=== PATIENT | male | born 1950 | race Caucasian/White ===

== ENCOUNTER → 2017-11-05 09:36 | Outpatient (CLI) | payer MEDICARE, SELFPAY ==
[2017-11-05 12:20] LABS: Absolute Lymphocyte Count 1.65 X10^3/ul (0.83-4.51); Absolute Neutrophil Count 3.4 X10^3/uL (2.0-7.7); Basophil# 0.03 X10^3/uL; Basophil% 0.5 % (0-1); Eosinophil# 0.11 X10^3/uL; Eosinophils% 1.9 % (0-5); Hematocrit 45.4 % (40-54); Hemoglobin 15.8 g/dl (13.0-16.5); Lymphocyte # 1.65 X10^3/ul (4.0); Lymphocyte % 28.1 % (19-41); Mean Corp Hgb Conc 34.8 g/gl (32-36); Mean Corpuscular Hgb 31.7 pg (27.0-32.0); Mean Corpuscular Volume 91.2 fL (80-94); Monocyte# 0.66 X10^3/uL; Monocyte% 11.2 % (0-10); Neutrophil # 3.42 X10^3/uL (2.7-7.7); Neutrophil % 58.1 % (47-70); Platelet Count 167 K/mm3 (150-450); RBC Distribution Width CV 12.7 % (11.6-14.6); RBC Distribution Width SD 41.4 fl (35.1-43.9); Red Blood Count 4.98 M/mm3 (4.6-6.2); White Blood Count 5.9 K/mm3 (4.4-11.0)
[2017-11-05 12:21] LABS: POSITIVE COUNT NO; POSITIVE DIFFERENTIAL NO; POSITIVE MORPHOLOGY NO
[2017-11-05 12:36] LABS: Hemoglobin A1c 5.8 % (4.2-6.3)
[2017-11-05 12:38] LABS: Vitamin B12 598 pg/mL (211-911); Vitamin D,25 Hydroxy 60.6 ng/mL (29.95-100.01)
[2017-11-05 12:44] LABS: Microalbumin,Random Urine 9.4 mg/L (NO RANGE EST.); Microalbumin:Creatinine Ratio 5.3 mg/g CRE (<30 mg/g CRE); Protein:Creat Ratio 51 mg/g CRE (0-200)
[2017-11-05 12:48] LABS: ALB/GLOB Ratio 1.1 RATIO (0.9-2.4); AST(SGOT) 21 U/L (15-37); Alanine Aminotransfer ALT/SGPT 32 U/L (16-61); Albumin, Serum 4.1 g/dL (3.2-5.0); Alkaline Phosphatase 68 U/L (45-117); Anion Gap 10 (5-15); BUN 15 mg/dL (7-18); BUN/Creat Ratio 15.7 RATIO (10-20); Chloride 105 mmol/L (98-107); Cholesterol 199 mg/dL (200); Creatinine, Serum 0.96 mg/dL (0.70-1.30); EST Glomerular Filtration Rate 84 mL/min (>60); Est Glom Filt Rate - Afr Amer 101 mL/min (>60); Globulin 3.9 g/dL (2.2-4.2); Glucose 93 mg/dL (74-106); High Density Lipoprotein 48 mg/dL; Potassium 4.2 mmol/L (3.5-5.1); Sodium Level 141 mmol/L (136-145); T4 Free Direct 1.01 ng/dL (0.76-1.46); Thyroid Stim Hormone (TSH) 1.55 uIU/mL (0.358-3.74); Triglycerides 109 mg/dL; Very Low Density Lipoprotein 22 mg/dL (5-40)
[2017-11-06 16:42] LABS: Hep C Antibodies 0.1 s/co ratio (0.0-0.9)
== END ==
PROVIDERS: Family Provider Family Medicine; PCP Family Medicine; Visit Provider Family Medicine
DX: I25.10 Atherosclerotic heart disease of native coronary artery without angina pectoris (principal); E11.9 Type 2 diabetes mellitus without complications; Z11.59 Encounter for screening for other viral diseases; E01.0 Iodine-deficiency related diffuse (endemic) goiter; R53.83 Other fatigue; E55.9 Vitamin D deficiency, unspecified
CPT/HCPCS: 36415; 80053; 80061; 82043; 82306; 82570; 82607; 83036; 84156; 84439; 84443; 85025; 86803

== ENCOUNTER → 2017-11-10 12:30 | Outpatient (CLI) | payer MEDICARE, SELFPAY ==
--- NOTE | 2017-11-08 12:45 | US_ITS ---
STUDY: THYROID ULTRASOUND REASON FOR EXAM: Male, 67 years old. Enlarged thyroid TECHNIQUE: Ultrasound evaluation of the thyroid was performed with real-time and static leslie-scale imaging. COMPARISON: None. FINDINGS: RIGHT LOBE: The right lobe of the thyroid gland measures 5.6 x 1.5 x 1.6 cm. There is a homogeneous echotexture. There are no demonstrated solid, cystic or complex lesions. LEFT LOBE: The left lobe of the thyroid gland measures 4.7 x 2.2 x 2.4 cm. There is a homogeneous echotexture. There are no demonstrated solid, cystic or complex lesions. ISTHMUS: The isthmus measures 2.0 mm . US/Thyroid IMPRESSION: Enlarged thyroid gland. Electronically Signed: Kelsea Hart MD at 14:28 EDT Tel , Service support ,
== END ==
PROVIDERS: Family Provider Family Medicine; PCP Family Medicine; Visit Provider Family Medicine
DX: E01.0 Iodine-deficiency related diffuse (endemic) goiter (principal)
CPT/HCPCS: 76536

== ENCOUNTER → 2017-12-02 15:25 | Outpatient (CLI) | payer MEDICARE, SELFPAY ==
[2017-12-05 11:42] LABS: Anti-Thyroglobulin AB < 1.0 IU/mL (0.0-0.9); Thyroglobulin, Serum Qt. 4.8 ng/mL (1.4-29.2); Thyroid Peroxidase AB 14 IU/mL (0-34)
[2017-12-08 16:06] LABS: Testosterone, Free 13.97 ng/dL (5.00-21.00)
[2017-12-09 12:13] LABS: Testosterone, % Free 2.81 % (1.50-4.20); Testosterone, Total 497 ng/dL (264-916)
== END ==
PROVIDERS: Family Provider Family Medicine; PCP Family Medicine; Visit Provider Family Medicine
DX: E01.0 Iodine-deficiency related diffuse (endemic) goiter (principal); R53.83 Other fatigue
CPT/HCPCS: 36415; 84402; 84403; 84432; 86376; 86800

== ENCOUNTER → 2017-12-15 11:36 | Outpatient (CLI) | payer MEDICARE, SELFPAY ==
[2017-12-15 14:15] LABS: AST(SGOT) 23 U/L (15-37); Alanine Aminotransfer ALT/SGPT 33 U/L (16-61); Albumin, Serum 3.9 g/dL (3.2-5.0); Alkaline Phosphatase 60 U/L (45-117); Bilirubin, Direct 0.13 mg/dL (0.00-0.30); Protein, Total 7.9 g/dL (6.4-8.2)
[2017-12-16 20:07] LABS: Creatine Kinase MB 0 % (0-3); Creatine Kinase MM 100 % (97-100); Creatine Kinase,Total,Serum 109 U/L (24-204); Macro I 0 % (Not Observed); Macro II 0 % (Not Observed)
[2017-12-17 11:33] LABS: Creatine Kinase BB 0 % (0)
== END ==
PROVIDERS: Family Provider Family Medicine; PCP Family Medicine; Visit Provider Family Medicine
DX: E78.5 Hyperlipidemia, unspecified (principal)
CPT/HCPCS: 36415; 80076; 82550; 82552

== ENCOUNTER → 2017-12-16 14:21 | Outpatient (CLI) | payer MEDICARE, SELFPAY ==
[2017-12-16 15:43] LABS: AST(SGOT) 20 U/L (15-37); Alanine Aminotransfer ALT/SGPT 29 U/L (16-61); Albumin, Serum 3.7 g/dL (3.2-5.0); Alkaline Phosphatase 63 U/L (45-117); Bilirubin, Direct 0.08 mg/dL (0.00-0.30); CPK Total, Creatine Kinase 189 U/L (39-308); Globulin 3.8 g/dL (2.2-4.2); Protein, Total 7.5 g/dL (6.4-8.2)
== END ==
PROVIDERS: Family Provider Family Medicine; PCP Family Medicine; Visit Provider Family Medicine
DX: N18.3 Chronic kidney disease, stage 3 (moderate) (principal); R53.83 Other fatigue
CPT/HCPCS: 36415; 80076; 82550

== ENCOUNTER → 2018-01-08 06:29 | Outpatient (CLI) | payer MEDICARE, SELFPAY ==
--- NOTE | 2018-01-08 06:31 | ECHOCS_ITS ---
Reason For Study: CAD/ASHD Procedure This was a 2D Doppler, Color Flow transthoracic echocardiogram. Contrast injection was performed. Exam performed in department. Left Ventricle Moderately dilated left ventricle. Apical false tendon noted. Severe segmental systolic dysfunction (see wall motion). The estimated ejection fraction is 25 %. Diastolic function is indeterminate. Posterior-Basal: Akinetic. Infero-Basal: Akinetic. Basal inferoseptal: Severely Hypokinetic. Mid- Anterior : Severely Hypokinetic. Mid-Lateral : Hypokinetic. Mid-Posterior: Akinetic. Mid-Inferior: Akinetic. Mid-inferoseptal : Severly Hypokinetic. Mid-anteroseptal : Hypokinetic. Anterior [place] : Severely Hypokinetic. Inferior [place] : Akinetic. Lateral [place] : Hypokinetic. Septal [place] : Hypokinetic. Right Ventricle Normal RV size. Normal systolic function. Atria The left atrium is mildly enlarged. Normal right atrium. No doppler evidence for ASD. Bubble contrast study negative for right to left interatrial shunt. Mitral Valve There is no mitral annular calcification. Mild papillary muscle dysfunction of the mitral valve. Mild-Moderate (1-2+) mitral valve insufficiency. Tricuspid Valve Normal tricuspid valve. Mild tricuspid valve insufficiency. Right ventricular systolic pressure estimated to be 31 mmHg. Aortic Valve Trisinus/trileaflet aortic valve. Normal aortic valve. Pulmonic Valve The pulmonic valve is not well visualized. Great Vessels Normal sized aortic root. Pericardium/Pleural No pericardial effusion. Medication Diluted definity 3ml given slow IV push to enhance endocardial definition. Performed a rapid injection of agitated mix of 9 cc saline and 1cc air to assess for atrial septal defect. MMode/2D Measurements & Calculations LVIDd: 6.3 cm IVSd: 1.0 cm Ao root diam: 3.3 cm LVIDs: 5.3 cm LVPWd: 0.83 cm LA dimension: 4.5 cm RVDd: 3.8 cm FS: 16.1 % LAV(MOD-bp): 87.0 ml LVAd ap4: 44.8 cm2 SV(MOD-sp4): 58.3 ml LAV(MOD-bp) Indexed: 39.6 ml/m2 EDV(MOD-sp4): 192.4 ml LAV(MOD-sp2): 93.8 ml EDV(sp4-el): 198.1 ml LAV(MOD-sp4): 67.5 ml LVAs ap4: 35.8 cm2 ESV(MOD-sp4): 134.1 ml ESV(sp4-el): 140.3 ml EF(MOD-sp4): 30.3 % EF(sp4-el): 29.2 % SV(sp4-el): 57.8 ml LA A4 area: 23.4 cm2 RA A4 area: 13.8 cm2 Time Measurements MV dec time: 0.28 sec Doppler Measurements & Calculations MV E max wayne: 61.9 cm/sec Lat Peak E' [place]: 9.5 cm/sec Med Peak E' [place]: 5.9 cm/sec MV A max wayne: 32.5 cm/sec E/E' lat: 6.5 E/E' med: 10.5 MV E/A: 1.9 MV V2 max: 77.6 cm/sec MV P1/2t max wayne: 78.7 cm/sec Ao V2 max: 97.6 cm/sec MV max P.4 mmHg MV P1/2t: 112.1 msec Ao max P.8 mmHg MV V2 mean: 40.8 cm/sec MV dec slope: 205.6 cm/sec2 Ao V2 mean: 60.5 cm/sec MV mean P.82 mmHg MVA(P1/2t): 2.0 cm2 Ao mean P.7 mmHg MV V2 VTI: 22.0 cm Ao V2 VTI: 19.1 cm LV V1 max: 79.2 cm/sec PA V2 max: 112.7 cm/sec TR max wayne: 262.7 cm/sec LV V1 max P.5 mmHg TR max P.6 mmHg LV V1 mean P.1 mmHg LV V1 mean: 47.0 cm/sec LV V1 VTI: 15.5 cm Interpretation Summary Contrast injection was performed. Moderately dilated left ventricle. Severe segmental systolic dysfunction (see wall motion). The estimated ejection fraction is 25 %. Apical false tendon noted. The left atrium is mildly enlarged. Mild papillary muscle dysfunction of the mitral valve. Mild-Moderate (1-2+) mitral valve insufficiency. Mild tricuspid valve insufficiency. Right ventricular systolic pressure estimated to be 31 mmHg. Diastolic function is indeterminate. Ordering Physician: Juaquin Bates Referring Physician: Jerel Caputo Performed By: Damir Umanzor RCS
--- NOTE | 2018-01-08 19:01 | STRESSREP ---
Stress Test Report Date: 01/08/2018 Procedure: Exercise tolerance test/imaging study Indications: Chest pain; angina pectoris; CAD; PCI; CABG; cardiomyopathy Consent: Per the patient Procedure: The patient exercised on a Kraig protocol for 3 minutes completing Stage I achieving a peak heart rate of 139 bpm (89 % predicted maximal heart rate) with a peak blood pressure 162/90 mmHg and a peak MET capacity of 4 METs. The baseline ECG demonstrated sinus rhythm with ST/T wave abnormality. The peak exercise ECG demonstrated continued ST/T wave abnormality without significant change compared to baseline. There was a rare to occasional PVC and a rare ventricular couplet during recovery. The functional capacity was considered decreased. There was chest discomfort/burning and shortness of breath during exercise with spontaneous resolution in recovery. The examination was discontinued secondary to chest discomfort and shortness of breath. Impression: 1. Technically adequate (percent predicted maximal heart rate greater than 85%) exercise tolerance test 2. Peak exercise ECG with continued ST and T wave abnormality without significant change compared to baseline 3. There was a rare to occasional PVC and a rare ventricular couplet during recovery 4. Nuclear images pending Myocardial perfusion imaging study: Technique: The patient was injected with 11.9 mCi of technetium 99m Cardiolite and subsequently rest SPECT Cardiolite nuclear imaging was obtained in the horizontal long, vertical long, and short axis views. The patient exercised on a Kraig protocol for 3 minutes completing Stage I achieving a peak heart rate of 139 bpm (89 % predicted maximal heart rate) with a peak blood pressure 162/90 mmHg and a peak MET capacity of 4 METs. The patient was injected with 33.8 mCi of technetium 99m Cardiolite and subsequently stress SPECT Cardiolite nuclear imaging was obtained in the horizontal long, vertical long, and short axis views. A gated Cardiolite study at peak stress was obtained. Interpretation: Rest and stress SPECT Cardiolite nuclear imaging status post realignment, normalization, and attenuation correction, demonstrates appearance of absence of myocardial perfusion/tracer uptake in portions of the basal to distal inferior septum as well as the basal to distal inferior and inferior apical segments without significant change between rest and stress. There is diminished end systolic thickening and brightening.. The gated Cardiolite study demonstrates managed myocardial thickening and inward wall motion. The reported LVEF is 31 %. Impression: 1. Rest and stress SPECT Cardiolite nuclear imaging demonstrate myocardial perfusion changes appearing compatible with an area of previous myocardial injury/infarction involving portions of the inferior septum and the inferior and inferior apical segments with no myocardial perfusion changes considered diagnostic for associated stress-induced myocardial ischemia. 2. The gated Cardiolite study reports an LVEF of 31 %. This note was generated with ROCKETHOMEation software. It may contain incorrect words, spelling, and punctuation that were not noted in checking the note before signing.
== END ==
PROVIDERS: Family Provider Family Medicine; PCP Family Medicine; Referring Provider Internal Medicine Cardiovascular Disease; Visit Provider Internal Medicine Cardiovascular Disease
DX: I25.10 Atherosclerotic heart disease of native coronary artery without angina pectoris (principal); Z95.5 Presence of coronary angioplasty implant and graft; Z95.1 Presence of aortocoronary bypass graft; I43 Cardiomyopathy in diseases classified elsewhere
CPT/HCPCS: 78452; 93017; 93306; A9500; Q9957; A4216; C8929

== ENCOUNTER 2018-01-27 08:52 | Day surgery (SDC) | payer MEDICARE, SELFPAY ==
--- NOTE | 2018-01-13 10:15 | RAD_ITS ---
STUDY: X-RAY CHEST REASON FOR EXAM: Male, 67 years old. Chest burning. TECHNIQUE: Frontal and lateral views of the chest. COMPARISON: None. FINDINGS: The lungs are hyperexpanded. There is no demonstrated pleural abnormality. There is borderline cardiomegaly with sternotomy wires and changes of coronary artery bypass grafting. Normal mediastinum and kathleen. Normal visualized pulmonary arteries. Normal visualized aortic arch and descending thoracic aorta. Normal visualized thoracic spine. Normal visualized ribs, clavicles, and shoulders. There is no demonstrated abnormality of the visualized soft tissue structures of the upper abdomen. RAD/Chest PA and Lateral IMPRESSION: Borderline cardiomegaly with hyperexpansion. No significant or acute pathology. Electronically Signed: Harrison Brewer MD at 14:09 EDT , Service support ,
[2018-01-13 10:58] LABS: Hematocrit 46.8 % (40-54); Hemoglobin 16.5 g/dl (13.0-16.5); Mean Corp Hgb Conc 35.3 g/gl (32-36); Mean Corpuscular Hgb 31.5 pg (27.0-32.0); Mean Corpuscular Volume 89.3 fL (80-94); Mean Platelet Vol. 10.6 fl (6.2-12.0); Platelet Count 175 K/mm3 (150-450); RBC Distribution Width CV 12.3 % (11.6-14.6); RBC Distribution Width SD 40.2 fl (35.1-43.9); Red Blood Count 5.24 M/mm3 (4.6-6.2); Scan Indicated on CBC? Y/N NO; White Blood Count 6.7 K/mm3 (4.4-11.0)
[2018-01-13 11:16] LABS: International Normalized Ratio 1.1; Prothrombin Time (Protime)PT. 13.9 SECONDS (11.7-14.9)
[2018-01-13 11:17] LABS: Partial Thromboplast Time 28.9 Seconds (24.1-36.2)
[2018-01-13 11:25] LABS: Anion Gap 8 (5-15); BUN 14 mg/dL (7-18); BUN/Creat Ratio 13.1 RATIO (10-20); Calcium,Total 9.2 mg/dL (8.5-10.1); Chloride 104 mmol/L (98-107); Creatinine, Serum 1.07 mg/dL (0.70-1.30); EST Glomerular Filtration Rate 74 mL/min (>60); Est Glom Filt Rate - Afr Amer 89 mL/min (>60); Glucose 99 mg/dL (74-106); Potassium 4.2 mmol/L (3.5-5.1); Sodium Level 138 mmol/L (136-145)
[2018-01-26 10:07] VITALS: BMI 26.0
--- NOTE | 2018-01-27 12:06 | CL.D_ITS ---
Patient Name: THAD NAIDU Study Date: 01/27/2018 Performing: Juaquin Bates MD Ht: 74.01 inches 188 cm : 1950 Wt: 202.83 lbs 92 kg Age: 67 Gender: male BSA: 2.19 PROCEDURE(S) PERFORMED [id number]/COR/LV/CABG CLINICAL PROFILE AND INDICATIONS Indications: Worsening Angina, Suspected CAD, LV Dysfunction, Cardiomyopathy Heart Failure: None Stress/Imaging Stress Test w/SPECT MPI: Yes Result: PositiveStress Test with SPECT MPI: Positive Angina Classification Anginal Classification w/in 2 Weeks: CCS III CAD Presentations: Stable angina. CONCLUSIONS Elevated Left Ventricular End Diastolic Pressure Segmented LV systolic dysfunction- Severe LVEF: by LV gram 25 % [place] Multivessel CAD MASCORRO to DX1: patent with sequential portion to LAD absent Radial artery graft to OM1 sequencing to OM2: patent JENNIFER to RPDA: small, atretic, and nonfunctional Left to right collateral flow RECOMMENDATIONS Medical therapy Consider primary prevention ICD DESCRIPTION OF PROCEDURE The patient arrived to the procedure lab. The risks and benefits of the procedure as well as a full d escription of our services here and current unavailability of surgical backup were fully explained to the patient and/or their significant other prior to the catheterization. The Timeout was completed, verifying the correct patient and procedure. The patient's procedural site was prepped and draped in the usual fashion. Local anesthetic was given subcutaneously to right groin region with Lidocaine 2%. Using a modified Seldinger technique, arterial access was obtained via the right femoral artery, a 4 Fr sheath was inserted Left Coronary Artery selective angiography was performed in multiple views us ing a 4 Fr. JL5 catheter. Right Coronary Artery selective angiography was then performed in multiple views using a 4 Fr. 3DRC catheter. Radial graft to the Circumflex and bridge to the lateral circumfle x selective angiography was performed in multiple views using a 4 Fr. 3DRC catheter. Left internal ma mmary artery graft to the LAD and bridge to the the diagonal selective angiography was performed in m ultiple views using a 4 Fr. 3DRC catheter. Right internal mammary artery graft to the RPDA selective angiography was performed in multiple views using a 4 Fr. JR4 catheter. Left Ventriculography was per formed in SHARIF projection using a 4 Fr. Pigtail catheter. LV to AO pullback pressures were then record ed.The arterial sheath was pulled and manual compression applied until hemostasis is achieved. CORONARY ANGIOGRAPHY DOMINANCE: Right Dominant LEFT HEART ASSESSMENT Left Ventricular Ejection Fraction: by LV Gram 25 % Anterior Hypokinesis. Apical Hypokinesis. Inferior Basal Akinetic. Inferior Mid Akinesis Elevated Left Ventricular End Diastolic Pressure LVEDP: 32 mmHg LEFT MAIN: Angiographically normal LEFT ANTERIOR DECENDING ARTERY: PROX LAD: Previously placed stent is patent with mild luminal irregularities MID LAD: Previously placed stent is patent DISTAL LAD: 10-25 % Stenosis DIAGONAL 1: Proximal - fills from antegrade flow and MASCORRO graft flow with no angiographically signifi cant disease distal to the graft attachment CIRCUMFLEX ARTERY: PROX CIRC: small caliber vessel: long: diffuse: 85 % Stenosis OM 1: Mid - fills from the radial artery sequental graft to OM1 and OM2 with no angiographically sign ificant disease distal to the graft attachment OM 2: Mid - fills from the sequential radial artery graft to OM1 with no angiographically significant appearing disease distal to the graft attachment RIGHT CORONARY ARTERY: PROX RCA: Long: Diffuse: 85 % Stenosis MID RCA: is occluded RT PDA: fills from left to right collateral flow GRAFTS: 1st Obtuse Marginal: Mid - fills from the radial artery sequental graft to OM1 and OM2 with no angiog raphically significant disease distal to the graft attachment 2nd Obtuse Marginal: Mid - fills from the sequential radial artery graft to OM1 with no angiographica lly significant appearing disease distal to the graft attachment MASCORRO graft to the 1st Diagonal is patent sequential portion to the LAD is absent Radial graft to the 1st OM sequencing to OM2 is patent JENNIFER graft to the RPDA is small, atretic, and nonfunctional COLLATERAL FLOW: Collateral flow from Left to Right VALVE FINDINGS: Normal Aortic Valve function Normal Mitral Valve function AORTIC ROOT: Angiographically normal COMPLICATIONS No Complications PROCEDURE MEDICATIONS Versed 1 mg IV Oxygen: 2 L/min via nasal cannula Baby Aspirin (81mg) 1 Tabs PO @ 01/27/2018 09:22:52 SUMMARY OF HEMODYNAMIC DATA Time AIR REST ECG 09:26:31 AO 122/81 (100) SA 11:02:09 LV 157/4, 35 11:19:21 LV 151/4, 32 11:19:27 LV 153/6, 36 11:20:26 LV 154/2, 35 11:20:32 LVp 153/0, 39 11:20:37 AO 153/78 (106) 11:20:42 Signed By Juaquin Bates MD On 01/27/2018 12:06:18 Juaquin Bates MD
== END 2018-01-27 16:00 | disposition home or self-care (01) ==
PROVIDERS: Family Provider Family Medicine; PCP Family Medicine; Referring Provider Internal Medicine Cardiovascular Disease; Visit Provider Internal Medicine Cardiovascular Disease
DX: I25.10 Atherosclerotic heart disease of native coronary artery without angina pectoris (principal); I43 Cardiomyopathy in diseases classified elsewhere; E78.5 Hyperlipidemia, unspecified; Z95.5 Presence of coronary angioplasty implant and graft; Z95.1 Presence of aortocoronary bypass graft; I25.2 Old myocardial infarction; I73.9 Peripheral vascular disease, unspecified; E11.9 Type 2 diabetes mellitus without complications; C83.30 Diffuse large B-cell lymphoma, unspecified site; R07.9 Chest pain, unspecified; R94.39 Abnormal result of other cardiovascular function study; Z79.899 Other long term (current) drug therapy; Z87.891 Personal history of nicotine dependence
CPT/HCPCS: 36415; 71046; 80048; 85027; 85610; 85730; 93459; 99152; 99153; J7040; C1769; C1894; Q9967

== ENCOUNTER → 2018-03-10 11:12 | Outpatient (CLI) | payer MEDICARE, SELFPAY ==
[2018-03-10 12:25] LABS: Absolute Lymphocyte Count 1.74 X10^3/ul (0.83-4.51); Absolute Neutrophil Count 2.5 X10^3/uL (2.0-7.7); Basophil# 0.04 X10^3/uL; Basophil% 0.8 % (0-1); Eosinophil# 0.11 X10^3/uL; Eosinophils% 2.1 % (0-5); Hematocrit 47.9 % (40-54); Hemoglobin 16.6 g/dl (13.0-16.5); Lymphocyte # 1.74 X10^3/ul (4.0); Lymphocyte % 33.9 % (19-41); Mean Corp Hgb Conc 34.7 g/gl (32-36); Mean Corpuscular Volume 89.5 fL (80-94); Mean Platelet Vol. 10.2 fl (6.2-12.0); Monocyte% 13.6 % (0-10); Neutrophil # 2.53 X10^3/uL (2.7-7.7); Neutrophil % 49.4 % (47-70); Platelet Count 165 K/mm3 (150-450); RBC Distribution Width CV 12.5 % (11.6-14.6); RBC Distribution Width SD 40.8 fl (35.1-43.9); Red Blood Count 5.35 M/mm3 (4.6-6.2); White Blood Count 5.1 K/mm3 (4.4-11.0)
[2018-03-10 12:26] LABS: POSITIVE COUNT NO; POSITIVE DIFFERENTIAL NO; POSITIVE MORPHOLOGY NO
[2018-03-10 12:52] LABS: Hemoglobin A1c 5.9 % (4.2-6.3); Vitamin D,25 Hydroxy 63.1 ng/mL (29.95-100.01)
[2018-03-10 13:14] LABS: ALB/GLOB Ratio 0.9 RATIO (0.9-2.4); AST(SGOT) 25 U/L (15-37); Alanine Aminotransfer ALT/SGPT 36 U/L (16-61); Albumin, Serum 4.1 g/dL (3.2-5.0); Alkaline Phosphatase 59 U/L (45-117); Anion Gap 11 (5-15); BUN 18 mg/dL (7-18); BUN/Creat Ratio 16.5 RATIO (10-20); Calcium,Total 9.2 mg/dL (8.5-10.1); Chloride 102 mmol/L (98-107); Cholesterol 292 mg/dL (200); Creatinine, Serum 1.09 mg/dL (0.70-1.30); EST Glomerular Filtration Rate 72 mL/min (>60); Est Glom Filt Rate - Afr Amer 87 mL/min (>60); Globulin 4.4 g/dL (2.2-4.2); Glucose 83 mg/dL (74-106); High Density Lipoprotein 41 mg/dL; Potassium 4.2 mmol/L (3.5-5.1); Protein, Total 8.5 g/dL (6.4-8.2); Sodium Level 137 mmol/L (136-145); Thyroid Stim Hormone (TSH) 1.15 uIU/mL (0.358-3.74); Triglycerides 94 mg/dL; Very Low Density Lipoprotein 19 mg/dL (5-40)
== END ==
PROVIDERS: Family Provider Family Medicine; PCP Family Medicine; Referring Provider Family Medicine; Visit Provider Family Medicine
DX: I50.22 Chronic systolic (congestive) heart failure (principal); R73.02 Impaired glucose tolerance (oral); E55.9 Vitamin D deficiency, unspecified; E78.5 Hyperlipidemia, unspecified
CPT/HCPCS: 36415; 80053; 80061; 82306; 83036; 84443; 85025

== ENCOUNTER → 2018-04-17 13:53 | Outpatient (CLI) | payer MEDICARE, SELFPAY ==
[2018-04-16 15:50] VITALS: BMI 27.2
--- NOTE | 2018-04-17 13:58 | ADUL_ITS ---
Reason For Study: R/O PSEUDO; FEMORAL BRUIT Procedure Rt GLASS INSERTER is .8 x .9 cm with a velocity of 105 cm/s. RT CFV demonstrates normal, phasic blood flow signal. No evidence of pseudoaneurysm or AV Fistula. Exam performed in department. Interpretation Summary Normal right common femoral artery and vein without evidence for pseudoaneurysm or fistula Ordering Physician: Juaquin Bates Referring Physician: PATRICIA BURDEN Performed By: Misty Ding, NERI, RVT
== END ==
PROVIDERS: Family Provider Family Medicine; PCP Family Medicine; Referring Provider Internal Medicine Cardiovascular Disease; Visit Provider Internal Medicine Cardiovascular Disease
DX: R09.89 Other specified symptoms and signs involving the circulatory and respiratory systems (principal)
CPT/HCPCS: 93926

== ENCOUNTER → 2018-07-08 11:05 | Outpatient (CLI) | payer MEDICARE, SELFPAY ==
[2018-04-16 15:50] VITALS: BMI 27.2
[2018-07-08 12:14] LABS: Absolute Lymphocyte Count 1.82 X10^3/ul (0.83-4.51); Absolute Neutrophil Count 2.8 X10^3/uL (2.0-7.7); Basophil# 0.03 X10^3/uL; Basophil% 0.6 % (0-1); Eosinophil# 0.12 X10^3/uL; Eosinophils% 2.3 % (0-5); Hematocrit 44.6 % (40-54); Hemoglobin 15.5 g/dl (13.0-16.5); Lymphocyte # 1.82 X10^3/ul (4.0); Lymphocyte % 34.3 % (19-41); Mean Corp Hgb Conc 34.8 g/gl (32-36); Mean Corpuscular Hgb 30.8 pg (27.0-32.0); Mean Corpuscular Volume 88.5 fL (80-94); Monocyte# 0.51 X10^3/uL; Monocyte% 9.6 % (0-10); Neutrophil # 2.81 X10^3/uL (2.7-7.7); Platelet Count 220 K/mm3 (150-450); RBC Distribution Width CV 12.9 % (11.6-14.6); RBC Distribution Width SD 41.2 fl (35.1-43.9); Red Blood Count 5.04 M/mm3 (4.6-6.2); White Blood Count 5.3 K/mm3 (4.4-11.0)
[2018-07-08 12:18] LABS: POSITIVE COUNT NO; POSITIVE DIFFERENTIAL NO; POSITIVE MORPHOLOGY NO
[2018-07-08 12:56] LABS: Hemoglobin A1c 6.1 % (4.2-6.3)
[2018-07-08 13:19] LABS: ALB/GLOB Ratio 1.3 RATIO (0.9-2.4); AST(SGOT) 25 U/L (15-37); Alanine Aminotransfer ALT/SGPT 35 U/L (16-61); Albumin, Serum 4.4 g/dL (3.2-5.0); Alkaline Phosphatase 60 U/L (45-117); Anion Gap 7 (5-15); BUN 13 mg/dL (7-18); BUN/Creat Ratio 11.9 RATIO (10-20); Calcium,Total 9.2 mg/dL (8.5-10.1); Chloride 108 mmol/L (98-107); Cholesterol 179 mg/dL (200); Creatinine, Serum 1.09 mg/dL (0.70-1.30); EST Glomerular Filtration Rate 72 mL/min (>60); Est Glom Filt Rate - Afr Amer 87 mL/min (>60); Globulin 3.5 g/dL (2.2-4.2); Glucose 91 mg/dL (74-106); High Density Lipoprotein 39 mg/dL; Potassium 4.2 mmol/L (3.5-5.1); Protein, Total 7.9 g/dL (6.4-8.2); Sodium Level 138 mmol/L (136-145); Triglycerides 81 mg/dL; Very Low Density Lipoprotein 16 mg/dL (5-40)
== END ==
PROVIDERS: Family Provider Family Medicine; PCP Family Medicine; Referring Provider Family Medicine; Visit Provider Family Medicine
DX: I25.10 Atherosclerotic heart disease of native coronary artery without angina pectoris (principal); E78.5 Hyperlipidemia, unspecified; E55.9 Vitamin D deficiency, unspecified; R73.02 Impaired glucose tolerance (oral)
CPT/HCPCS: 80053; 80061; 82306; 83036; 85025

== ENCOUNTER → 2018-08-06 08:40 | Outpatient (CLI) | payer MEDICARE, SELFPAY ==
[2018-07-23 15:29] VITALS: BMI 27.4
--- NOTE | 2018-08-06 08:42 | AAVD_ITS ---
Reason For Study: PAD Aorta Measurements Aorta Doppler Measurements Proximal aorta measures1.68 x 1.79cm. in cross- Peak systolic flow velocities within the proximal sectional axis. aorta measure 64.4 cm/sec. Proximal aorta measures1.70cm. in longitudinal Peak systolic flow velocities within the mid aorta axis. measure 57.8 cm/sec. Mid aorta measures1.53 x 1.51cm. in cross- Peak systolic flow velocities within the distal sectional axis. aorta measure 62.2 cm/sec. Mid aorta measures1.54cm. in longitudinal axis. Distal aorta measures1.14 x 1.12cm. in cross- sectional axis. Distal aorta measures1.12cm. in longitudinal axis. Left Iliac Artery Left iliac artery measures 0.53 x 0.51 cm. in the cross-sectional axis. Left iliac artery measures 0.55 cm. in the longitudinal axis. Peak systolic velocity in the left iliac artery measures 106.6 cm/sec. Right Iliac Artery Right iliac artery measures 0.57 x 0.57 cm. in the cross-sectional axis. Right iliac artery measures 0.49 cm. in the longitudinal axis. Peak systolic velocity in the right iliac artery measures 126.4 cm/sec. Procedure Aorta IVC Iliac vasculature or bypass grafts [id number]. Exam performed in department. Interpretation Summary Maximal aortic diameter 1.53 x 1.51cm. No evidence for aortic aneursym Normal flow abdominal aorta Left common iliac small at 0.53 x 0.51cm Right common iliac small at 0.57 x 0.57cm Ordering Physician: Juaquin Bates Referring Physician: Jerel Caputo Performed By: Cally Daigle RVT
== END ==
PROVIDERS: Family Provider Family Medicine; Referring Provider Internal Medicine Cardiovascular Disease; Visit Provider Internal Medicine Cardiovascular Disease
DX: R09.89 Other specified symptoms and signs involving the circulatory and respiratory systems (principal)
CPT/HCPCS: 93978

== ENCOUNTER 2018-09-25 09:39 | Emergency (ER) | payer MEDICARE, SELFPAY ==
[2018-07-23 15:29] VITALS: BMI 27.4
[2018-09-25] VITALS (9 sets, daily range): BP systolic 108–122; BP diastolic 76–100; PULSE 119–133; RESP 18–40; TEMP 36.4–36.5; O2SAT 97–100; BMI 25.3
--- NOTE | 2018-09-25 10:04 | EKG12_ITS ---
Test Reason : SOB Blood Pressure : / mmHG Vent. Rate : 120 BPM Atrial Rate : 120 BPM P-R Int : 112 ms QRS Dur : 096 ms QT Int : 326 ms P-R-T Axes : 000 101 262 degrees QTc Int : 460 ms Sinus tachycardia Rightward axis ST & T wave abnormality, consider inferolateral ischemia Abnormal ECG Confirmed by TAMANNA BOOTH ([id number]), medical editor JOSE HUANG ([id number]) on 09/30/2018 2:10:11 PM Referred By: DC Confirmed By:TAMANNA BOOTH
--- NOTE | 2018-09-25 10:04 | RAD_ITS ---
STUDY: X-RAY CHEST REASON FOR EXAM: Male, 68 years old. TECHNIQUE: 1 view COMPARISON: January 13, 2018. FINDINGS: The lungs are clear and expanded. There is no demonstrated pleural abnormality. Normal size heart. Normal mediastinum and kathleen. Normal visualized pulmonary arteries. Normal visualized aortic arch and descending thoracic aorta. There are multiple metallic stitches along the sternum from previous surgery. Normal visualized thoracic spine. There is old healed rib fracture involving the fifth rib in the posterior axillary line in the right, otherwise the clavicles, and shoulders are unremarkable. The trachea is in the midline. There is no demonstrated abnormality of the visualized soft tissue structures of the upper abdomen. RAD/Chest 1 View (Portable) IMPRESSION: Normal x-ray examination of the chest unchanged since January 13, 2018.. Electronically Signed: Henrietta Ruiz, at 11:56 EDT Tel , Service support ,
--- NOTE | 2018-09-25 10:07 | ED.DCSUM_ITS ---
- ER Visit Summary Date of Service: 09/25/18 Chief Complaint: Shortness of breath History of Present Illness: The patient is a 68 M with shortness of breath for months. This has been getting worse. He had a cardiac cath in January and he said he did not require stents. He does have a history of CHF, cardiomyopathy. He was recently diagnosed with COPD. He quit smoking about 5 years ago. He is not on oxygen. He saw his PCP today and his heart rate and respiratory rate were up, so he was referred to the ED for further evaluation. He has shortness of breath, cough, nausea, vomiting. Denies chest pain. Denies fevers or sputum. Denies any calf pain or history of blood clots. Physical Examination: Afebrile. Heart rate 119 and respiratory rate 40. Patient 100% on room air. He appears pale but not in distress. Heart is tachycardic but regular. Lungs are clear. Abdomen soft. Extremities nontender. Test Results: EKG, chest x-ray pending. Laboratory evaluation pending. Emergency Department Course and Treatment: Patient presents with shortness of breath, cough, nausea. History of CHF, COPD, cardiomyopathy. Work-up for cardiac, respiratory, vascular causes underway. He is low risk for PE. We will start with a d-dimer. Will hold fluids for now. Labs started coming back abnormal. His platelets were low. DIC testing was ordered. His fibrinogen was 52, d-dimer greater than 20. INR 3.1 and PTT 47.2. White count 11.4 and lactate 6.0. Urinalysis and chest x-ray unremarkable. Blood cultures pending. Patient was covered with a fluid bolus and Levaquin for possible underlying sepsis. Blood work showed liver failure. Liver enzymes are elevated. Total bilirubin 3.8. Lipase was normal. INR 3.1 and PTT 47.2. Tylenol level was negative. CT of his abdomen was unremarkable except for a right kidney stone measuring 1.2 cm. BUN was 20 and creatinine 2.53. Potassium 5.8. He was treated with albuterol, insulin, dextrose, calcium. Patient was discussed with our surgical endoscopist and hospitalist here. They felt that he needed to go somewhere with a developer relations manager on staff. Patient initially requested [facility]. [facility] felt that the patient would need a transplant possibly and recommended [facility]. Patient was agreeable to [facility]. I spoke with the surgical endoscopist there. He thought based on the patient's comorbidities, the patient would not be a candidate for transplant. He suggested [facility]. We are waiting to hear back from [facility]. Treatment Plan: As above Disposition: Transfer Impression: 1. DIC 2. Hepatic failure 3. CHF/cardiomyopathy 4. Acute kidney injury 5. Hyperkalemia 6. Lactic acidosis This note was generated with Pad[employer] dictation software. It may contain incorrect words, spelling, and punctuation that were not noted in review of the chart prior to signing ED Disposition - Plan for ED Patient: Referrals: Jerel Caputo MD [Primary Care Provider] -
[2018-09-25 11:06] LABS: International Normalized Ratio 3.1; Prothrombin Time (Protime)PT. 32.4 SECONDS (11.7-14.9)
[2018-09-25 11:07] LABS: Partial Thromboplast Time 47.2 Seconds (24.1-36.2)
[2018-09-25 11:13] LABS: Absolute Lymphocyte Count 1.48 X10^3/ul (0.83-4.51); Basophil# 0.01 X10^3/uL; Basophil% 0.1 % (0-1); Hematocrit 43.7 % (40-54); Hemoglobin 14.6 g/dl (13.0-16.5); Lymphocyte # 1.48 X10^3/ul (4.0); Lymphocyte % 12.9 % (19-41); Mean Corp Hgb Conc 33.4 g/gl (32-36); Mean Corpuscular Hgb 30.4 pg (27.0-32.0); Mean Platelet Vol. 11.1 fl (6.2-12.0); Monocyte# 0.93 X10^3/uL; Monocyte% 8.1 % (0-10); Neutrophil # 8.99 X10^3/uL (2.7-7.7); Neutrophil % 78.7 % (47-70); Platelet Count 61 K/mm3 (150-450); RBC Distribution Width CV 14.3 % (11.6-14.6); RBC Distribution Width SD 46.5 fl (35.1-43.9); White Blood Count 11.4 K/mm3 (4.4-11.0)
[2018-09-25 11:15] LABS: POSITIVE COUNT NO; POSITIVE DIFFERENTIAL NO; POSITIVE MORPHOLOGY NO
--- NOTE | 2018-09-25 11:23 | ED.RN ---
DR SALCIDO INFORMED LACTIC=6.0. STATES WILL ENTER NEW ORDERS
[2018-09-25 11:26] LABS: ALB/GLOB Ratio 1.2 RATIO (0.9-2.4); AST(SGOT) 2011 U/L (15-37); Alanine Aminotransfer ALT/SGPT 1539 U/L (16-61); Albumin, Serum 3.9 g/dL (3.2-5.0); Alkaline Phosphatase 96 U/L (45-117); Anion Gap 12 (5-15); BUN 50 mg/dL (7-18); BUN/Creat Ratio 19.8 RATIO (10-20); Calcium,Total 9.2 mg/dL (8.5-10.1); Chloride 103 mmol/L (98-107); Creatinine, Serum 2.53 mg/dL (0.70-1.30); EST Glomerular Filtration Rate 27 mL/min (>60); Est Glom Filt Rate - Afr Amer 33 mL/min (>60); Estimated Creatinine Clearance 33.39 ml/min; Globulin 3.3 g/dL (2.2-4.2); Glucose 110 mg/dL (74-106); Potassium 5.8 mmol/L (3.5-5.1); Protein, Total 7.2 g/dL (6.4-8.2); Sodium Level 134 mmol/L (136-145)
--- NOTE | 2018-09-25 11:33 | CT_ITS ---
STUDY: CT ABDOMEN AND PELVIS WITHOUT CONTRAST REASON FOR EXAM: Male, 68 years old. RADIATION DOSAGE (If Supplied By Facility): CTDIvol = ( 9.13 ) mGy, DLP = ( 540.47 ) mGycm TECHNIQUE: Transaxial images were obtained from the dome of the diaphragm to the symphysis pubis without oral contrast, and without intravenous contrast. Sagittal and coronal images were reconstructed. Individualized dose optimization techniques were used for this CT. COMPARISON: None. FINDINGS: There is minimal right-sided pleural effusion with some patchy changes in the right base. The liver is not enlarged no focal lesion noted. The spleen is unremarkable. The pancreas is unremarkable. Both the suprarenal glands are within normal limits. There is 1.2 cm stone in the inferior aspect of the right kidney no obstructive uropathy seen on either side. The small and large bowel are unremarkable. No ascites noted. No free fluid surrounding no free air within the peritoneal cavity. Atherosclerotic changes noted in the abdominal aorta without aneurysmal dilatation. There is evidence of narrowing of the L4-L5 disc space with hypertrophic osteophyte formation seen in the lower dorsal and upper lumbar spine. CT/Abdomen/Pelvis without Cont IMPRESSION: 1.2 cm stone lower aspect of the right kidney. The study is otherwise negative Electronically Signed: Henrietta Ruiz, at 14:05 EDT Tel , Service support ,
[2018-09-25 11:42] LABS: D-Dimer Quantitative (DVT/PE) > 20.00 FEU/ug/m (0.27-0.49)
--- NOTE | 2018-09-25 11:42 | ED.RN ---
DR SALCIDO NOTIFIED D-DIMER >20. NNO VERBALIZED
[2018-09-25] MEDS: Albuterol 2.5 MG/3 ML VIAL.NEB. INHALATION (11:46)
[2018-09-25 11:52] LABS: BNP,B-Type NATRIURETIC PEPTIDE 1491.6 pg/mL (0-100)
[2018-09-25] MEDS: Dextrose 50%-Water 25 GM/50 ML DISP.SYRIN IV (12:07)
[2018-09-25] MEDS: 0.9% Normal Saline 1,000 ML 999 ML IV ×3 (12:07→13:58)
[2018-09-25] MEDS: Calcium Gluconate 1 GM/10 ML Vial IV (12:07)
[2018-09-25] MEDS: levoFLOXacin IV 750 MG/150 ML BAG 100 MG IV (12:24)
[2018-09-25 12:30] LABS: LDH 1752 U/L (87-241); Lipase 110 U/L (73-393)
[2018-09-25 12:33] LABS: Red Blood Cells-Urine 0 SEEN /hpf (0-5)
[2018-09-25 12:35] LABS: Fibrinogen 52 mg/dl (203-444)
--- NOTE | 2018-09-25 12:37 | ED.RN ---
FIBRINOGEN 52, DR. SALCIDO AWARE.
[2018-09-25 12:50] LABS: Color, Urine Yellow (Yellow); Glucose, Dipstick Normal (Normal); Ketone-Dipstick 5 mg/dl (Negative); Leukocyte Esterase-Dipstick Negative /ul (Negative); Nitrite-Dipstick Negative (Negative); Occult Blood-Urine 25 /ul (Negative); Protein-Dipstick 100 mg/dl (Negative); Specific Gravity, Urine 1.025 (1.002-1.030); Urine Clarity Clear (Clear); Urine Urobilinogen 4 mg/dl (Normal)
[2018-09-25 12:51] LABS: Urine Bilirubin Dipstick 1 mg/dL (Negative)
[2018-09-25 12:52] LABS: Bacteria 1+ /hpf (None Seen); Mucous, Urine 1+ /hpf (<or=2+); Squamous Epithelial Cells - UA 0-5 SEEN /hpf (0-5)
[2018-09-25 12:53] LABS: Fine Granular Cast- Urine 0-5 SEEN /lpf (0-5); Hyaline Cast 5-10 SEEN /lpf (0-5); White Blood Cells 0-5 SEEN /hpf (0-5)
[2018-09-25 13:06] LABS: Acetaminophen (Tylenol) Level < 2.0 ug/mL (10.0-30.0)
[2018-09-25 14:53] LABS: Reflex Lactate? Y
[2018-09-25 15:46] LABS: Lactic Acid 4.2 mmol/L (0.4-2.0)
--- NOTE | 2018-09-25 15:47 | ED.RN ---
LACTIC 4.2 MD AWARE.
[2018-09-25] MEDS: Ondansetron 4 MG/2 ML Vial IV (16:19)
== END 2018-09-25 18:13 | disposition short-term general hospital (02) ==
PROVIDERS: Emergency Provider Emergency Medicine; Family Provider Family Medicine; PCP Family Medicine
DX: D65 Disseminated intravascular coagulation [defibrination syndrome] (principal); K72.90 Hepatic failure, unspecified without coma; I50.9 Heart failure, unspecified; I42.9 Cardiomyopathy, unspecified; N17.9 Acute kidney failure, unspecified; E87.5 Hyperkalemia; E87.2 Acidosis; I25.10 Atherosclerotic heart disease of native coronary artery without angina pectoris; I25.2 Old myocardial infarction; J44.9 Chronic obstructive pulmonary disease, unspecified; Z95.1 Presence of aortocoronary bypass graft; Z79.82 Long term (current) use of aspirin; Z87.891 Personal history of nicotine dependence
CPT/HCPCS: 71045; 74176; 80053; 80329; 81001; 83605; 83615; 83690; 83880; 84484; 85025; 85379; 85384; 85610; 85730; 86850; 86900; 87040; 87086; 87088; 93005; 94640; 96365; 96366; 96375; 99285; J7030; J7050; A4216; G0480; J0610; J2405

== ENCOUNTER 2018-10-09 19:00 | Inpatient (IN) | payer SELFPAY ==
[2018-09-25 09:43] VITALS: BMI 25.3
[2018-10-09 19:44] VITALS: BP 102/65; PULSE 81; RESP 20; TEMP 36.9; O2SAT 100; BMI 23.3; BMI 23.4
--- NOTE | 2018-10-09 19:45 | NURSING ---
Pt arrived to floor at 1840.
--- NOTE | 2018-10-09 21:06 | HP.PCM_ITS ---
Problem List (1) Shortness of breath Status: Acute (2) COPD (chronic obstructive pulmonary disease) Status: Chronic (3) Liver failure Status: Acute (4) Bipolar disorder Status: Chronic (5) Coronary artery disease Status: Chronic (6) Acute on chronic systolic (congestive) heart failure Status: Chronic (7) GERD (gastroesophageal reflux disease) Status: Chronic (8) Large cell lymphoma Status: Chronic (9) OCD (obsessive compulsive disorder) Status: Chronic (10) PAOD (peripheral arterial occlusive disease) Status: Chronic (11) Panic disorder Status: Chronic (12) Tobacco abuse Status: Chronic (13) Atrial flutter Status: Chronic (14) Elevated liver enzymes Status: Acute (15) Acute kidney injury Status: Acute (16) Elevated lactic acid level Status: Acute (17) Hyperlipemia Status: Chronic Qualifiers: History of Present Illness Date of Admission: 10/09/18 Chief Complaint: Here for rehabilitation, strengthening, prior to discharge home with family. The patient is a 68 year old Male with below past medical history presented to [facility] Emergency Department 09/25/2018 with shortness of breath. 09/25/2018 EKG showed sinus tachycardia, rightward axis, ST&T wave abnormality, consider inferolateral ischemia. 09/25/2018 Chest X-ray negative. Shortness of breath worsening, heart cath January 2018, no stents. Saw PCP, heart rate elevated, respiratory rate elevated, referred to ED. Platelet low, D-dimer > 20, INR 3.1, PTT 47.2. WBC 11.4, Lactate 6.0, UA, CXR okay, Blood cultures sent. Levaquin, IV fluids given. Liver enzymes elevated, T. Bili 3.8. CT A/P right kidney stone. BUN 20, CR 2.53, K 5.8 treated with albuterol, insulin, dextrose, calcium. Transferred to [facility]. At [facility], atrial flutter noted along with elevated liver enzymes, new onset thrombocytopenia. Digoxin load for atrial flutter, Right upper quadrant ultrasound negative. Metoprolol 2.5MG IV for atrial flutter without improvement. 09/25/2018 Echo Normal LV size, impaired LV systolic function. EF 20%. LVH. No pericardial effusion. 09/26/2018 Patient then transferred to [facility]. Admit to [facility]. Consider hepatology consult for liver failure. [place] guided therapy for acute systolic heart failure, patient declined ICD in past. Trend creatinine for acute kidney injury. 09/27/2018 DC cardioversion atrial flutter. 10/06/2018 Acute right IJ DVT, acute right popliteal, PT, peroneal, gastroc DVT, left PT, LV, RV thrombus. Developed cardiogenic shock. Metoprolol, valsartan, digoxin, lasix for systolic heart failure, patient declined LifeVest. Aspirin only, history of bleeding on Plavix. Warfarin, heparin bridge for acute DVT. No concern for recurrence of Large cell lymphoma. Patient's condition improved. 10/09/2018 Admit to TCU with debility, here for rehabilitation, strengthening, prior to discharge home with family. Past Medical History Past Medical History (Chronic Problems): Chronic Problems (Last Updated 07/23/18 @ 15:37 by Aydee Evans) COPD (chronic obstructive pulmonary disease) (Chronic) Bipolar disorder (Chronic) Coronary artery disease (Chronic) Acute on chronic systolic (congestive) heart failure (Chronic) GERD (gastroesophageal reflux disease) (Chronic) 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Chronic) OCD (obsessive compulsive disorder) (Chronic) PAOD (peripheral arterial occlusive disease) (Chronic) Panic disorder (Chronic) Tobacco abuse (Chronic) Atrial flutter (Chronic) Non-STEMI (non-ST elevated myocardial infarction) (Chronic) History of coronary artery bypass surgery (Chronic ~01/06/07) CABG x5- MASCORRO to LAD, bridge diagonal, JENNIFER to PDA, Right Radial artery to posterolateral CFX, bridge to lateral CFX 01/06/07 Presence of stent in coronary artery (Chronic ~12/07/13) PTCA/stent to the mid LAD, PTCA/stent prox LAD, and PTCA/stent to the distal LAD 12/07/13 Peripheral vascular disease (Chronic) Hyperlipemia (Chronic) Cardiomyopathy in disease classified elsewhere (Chronic) Atherosclerotic heart disease of [place] coronary artery without angina pectoris (Chronic) Type 2 diabetes mellitus (Chronic) Pre diabetic Medical History: Medical History (Last Updated 07/23/18 @ 15:37 by Aydee Evans) Non-STEMI (non-ST elevated myocardial infarction) (Chronic) I21.4 Peripheral vascular disease (Chronic) I73.9 Hyperlipemia (Chronic) E78.5 Cardiomyopathy in disease classified elsewhere (Chronic) I43 Atherosclerotic heart disease of [place] coronary artery without angina pectoris (Chronic) I25.10 Type 2 diabetes mellitus (Chronic) E11.9 Pre diabetic GERD (gastroesophageal reflux disease) K21.9 Ischemic cardiomyopathy I25.5 Large cell lymphoma C85.80 Panic disorder F41.0 Allergies bee venom protein (honey bee) Allergy (Verified 10/09/18 20:28) Anaphylaxis captopril Adverse Reaction (Verified 10/09/18 20:29) Other Home Medications: Ambulatory Orders Medication Instructions Recorded Cholecalciferol (Vitamin D3) 5,000 unit PO DAILY 09/25/18 [Vitamin D3] Rosuvastatin Calcium 5 mg PO AYALA 09/25/18 Albuterol IH (ProAir) [Proair Hfa] 2 puff INHALATION Q6H PRN PRN 10/09/18 Aspirin 81 mg PO DAILY 10/09/18 Digoxin [Lanoxin] 125 mcg PO DAILY 10/09/18 Furosemide 40 mg PO DAILY 10/09/18 Metoprolol Succinate 12.5 mg PO DAILY 10/09/18 Spironolactone 25 mg PO DAILY 10/09/18 Valsartan 20 mg PO BID 10/09/18 Warfarin [Coumadin (PBKC)] 7.5 mg PO DAILY 10/09/18 Surgical History: Surgical History (Last Reviewed 07/23/18 @ 15:39 by Aydee Evans) History of coronary artery bypass surgery (Chronic) Onset Date: ~01/06/07 Z95.1 CABG x5- MASCORRO to LAD, bridge diagonal, JENNIFER to PDA, Right Radial artery to posterolateral CFX, bridge to lateral CFX 01/06/07 Presence of stent in coronary artery (Chronic) Onset Date: ~12/07/13 Z95.5 PTCA/stent to the mid LAD, PTCA/stent prox LAD, and PTCA/stent to the distal LAD 12/07/13 S/P insertion of iliac artery stent Z95.828 History of nasal septoplasty Z98.890 Surgical History: angioplasty - Stent right iliac artery., coronary bypass surgery, - - Nasal septum, biopsy neck mass lymphoma. Lives: With Family Smoking Status: Former smoker Tobacco Use: Non-smoker Alcohol: Occasional Drugs: Marijuana - *Family History Maternal Family History: Family History (Last Reviewed 07/23/18 @ 15:39 by Aydee Evans) Father Diabetes History Items: Hypertension Paternal Family History: Family History (Last Reviewed 07/23/18 @ 15:39 by Aydee Evans) Father Diabetes History Items: Diabetes, Dementia, Hypertension, Stroke Review of Systems Constitutional: Denies: Chills, Fever, Weight Change HEENT: Denies: Head Aches, Sinus Congestion, Sinus Drainage Cardiovascular: Denies: Chest Pain, Palpitations Respiratory: Reports: Shortness of Breath. Denies: Cough, Shortness of breath at rest, Sputum production Gastrointestinal: Denies: Abdominal Pain, Nausea, Vomiting Genitourinary: Denies: Dysuria Musculoskeletal: Denies: Joint Pain, Joint Tenderness Skin: Denies: Rash, Wounds Neurological: Denies: Numbness, Tingling, Focal weakness Psychiatric: Denies: Anxiety, Depression, Homicidal Ideations, Suicidal Ideations Hematologic/ Lymphatic: Denies: Easy Bruising, Easy Bleeding VTE Information - Inpt Only VTE Present on Admission: Yes VTE Mechan Device Prophylaxis: Knee High JEMAL Hose VTE Pharm Prophylaxis ordered?: No Reason prophylaxis not ordered:: Treatment Not Indicated Patient Problems: Active and Suspected Problems (Last Updated 07/23/18 @ 15:37 by Aydee Evans) Shortness of breath (Acute) Liver failure (Acute) Elevated liver enzymes (Acute) Acute kidney injury (Acute) Elevated lactic acid level (Acute) - Physical Exam General: Alert, Oriented x3, Cooperative HEENT: Atraumatic, PERRLA, EOMI, Normocephalic Neck: Supple, No JVD, Negative Carotid Bruits Lungs: Clear to auscultation, Normal air movement Cardiovascular: Regular rate, Murmur - 2/6 systolic murmur upper left sternal border. Abdomen: Bowel Sounds Present, Soft, Non Tender Extremities: No edema, Capillary Refill Less than 3 Seconds Skin: No rashes, No breakdown Musculoskeletal: No Tenderness to Palpation of Joints or Extremities Neurological: Cranial nerves II-XII grossly intact Psych/Mental Status: Normal Affect, Appropriate Body Mass Index (BMI) 25.3 Assessment/Plan All Active Problems (Last Updated 07/23/18 @ 15:37 by Aydee Evans) Shortness of breath (Acute) Liver failure (Acute) Elevated liver enzymes (Acute) Acute kidney injury (Acute) Elevated lactic acid level (Acute) Femoral bruit (Acute) Chest pain (Acute) Abnormal stress test (Acute) 68 year old male with below past medical history hospitalized for cardiogenic shock, liver failure, acute kidney injury, complicated by acute on chronic systolic congestive heart failure, extensive DVT, admitted to TCU with debility, here for rehabilitation, strengthening, prior to discharge home with family. * Debility - PT/OT. * Pain - Tylenol 1000MG Q8H PRN mild pain. * Bowel - Miralax 17GM daily, Senokot 1 tablet BID, Dulcolax 10MG daily PRN. * Pneumonia vaccination - Administer Prevnar 13 and/or Pneumovax 23 as necessary. * DVT prophylaxis - not necessary, already on warfarin. * COPD - Albuterol 2 puff Q6H PRN. * Coronary Artery disease - Metoprolol succinate 12.5MG daily, Losartan 25MG daily, Aspirin 81MG daily. * Hyperlipidemia - Atorvastatin 10MG once per week. * Vitamin D deficiency - D3 5000IU daily. * Acute on chronic systolic heart failure - EF 20%, Metoprolol succinate 12.5MG daily, Digoxin 125MCG daily, Losartan 25MG daily, Aldactone 25MG daily, Lasix 40MG daily, unable ICD secondary to cardiac thrombus, declined LifeVest. He maybe candidate for Entresto, will discuss with resident. Resident open to trying Entresto, stop Losartan, start Entresto 24/26MG twice daily tomorrow. * Acute DVT - Warfarin 7.5MG daily, follow INR.
[2018-10-10] VITALS (7 sets, daily range): BP systolic 76–107; BP diastolic 44–63; PULSE 66–84; TEMP 36.4; O2SAT 98–99
[2018-10-10] MEDS: Metoprolol(XL)Succ 25 MG Tablet 12.5 MG PO (06:38)
[2018-10-10] MEDS: Furosemide 40 MG Tablet PO (06:40)
[2018-10-10] MEDS: Spironolactone 25 MG Tablet PO (06:40)
[2018-10-10] MEDS: Digoxin 125 MCG Tablet PO (06:40)
[2018-10-10] MEDS: Losartan Potassium 25 MG Tablet PO (06:41)
[2018-10-10 07:44] LABS: International Normalized Ratio 1.9; Prothrombin Time (Protime)PT. 21.8 SECONDS (11.7-14.9)
[2018-10-10 07:49] LABS: Absolute Lymphocyte Count 1.56 X10^3/ul (0.83-4.51); Absolute Neutrophil Count 3.7 X10^3/uL (2.0-7.7); Basophil# 0.03 X10^3/uL; Basophil% 0.5 % (0-1); Eosinophil# 0.36 X10^3/uL; Eosinophils% 5.6 % (0-5); Hemoglobin 9.4 g/dl (13.0-16.5); Lymphocyte # 1.56 X10^3/ul (4.0); Lymphocyte % 24.1 % (19-41); Mean Corp Hgb Conc 32.4 g/gl (32-36); Mean Corpuscular Hgb 31.1 pg (27.0-32.0); Mean Platelet Vol. 9.3 fl (6.2-12.0); Monocyte% 12.4 % (0-10); Neutrophil # 3.68 X10^3/uL (2.7-7.7); Neutrophil % 56.9 % (47-70); Platelet Count 364 K/mm3 (150-450); RBC Distribution Width CV 15.8 % (11.6-14.6); Red Blood Count 3.02 M/mm3 (4.6-6.2); White Blood Count 6.5 K/mm3 (4.4-11.0)
[2018-10-10 07:52] LABS: POSITIVE COUNT NO; POSITIVE DIFFERENTIAL NO; POSITIVE MORPHOLOGY NO
[2018-10-10 07:58] LABS: Anion Gap 7 (5-15); BUN 14 mg/dL (7-18); Calcium,Total 8.6 mg/dL (8.5-10.1); Chloride 105 mmol/L (98-107); Creatinine, Serum 0.82 mg/dL (0.70-1.30); EST Glomerular Filtration Rate 99 mL/min (>60); Est Glom Filt Rate - Afr Amer 120 mL/min (>60); Estimated Creatinine Clearance 103.03 ml/min; Glucose 102 mg/dL (74-106); Potassium 4.1 mmol/L (3.5-5.1); Sodium Level 137 mmol/L (136-145)
[2018-10-10] MEDS: Aspirin 81 MG TAB.CHEW PO (08:42)
[2018-10-10] MEDS: Tuberculin,Purif.prot.deriv. 50 TU/ML Vial 5 ML ID (11:58)
--- NOTE | 2018-10-10 13:00 | NURSING ---
Therapy asked this nurse to come to pt's room, states Pt's color pale and checked BP and it was low. Pt laying in bed. BP 76/50, HR 66, regular. Pt denies feeling dizzy at this time. Manual BP 80/44 left arm. Pt's RN, Gavi, into room.
--- NOTE | 2018-10-10 13:45 | NURSING ---
Dr. Navarro notified of low bp, pt condition, monitor, no new orders.
[2018-10-11 06:11] VITALS: BP 102/67; PULSE 85
[2018-10-11] MEDS: Spironolactone 25 MG Tablet PO (06:11)
[2018-10-11] MEDS: Digoxin 125 MCG Tablet PO (06:11)
[2018-10-11] MEDS: Furosemide 40 MG Tablet PO (06:11)
[2018-10-11] MEDS: Metoprolol(XL)Succ 25 MG Tablet 12.5 MG PO (06:11)
[2018-10-11] MEDS: Losartan Potassium 25 MG Tablet PO (06:11)
[2018-10-11] MEDS: Senna Tablet 1 TABLET PO ×2 (06:12→16:46)
--- NOTE | 2018-10-11 06:21 | NURSING ---
Per pt, he is only to take 2,000 units of vitamin D. Will update Dr Navarro.
[2018-10-11] MEDS: Aspirin 81 MG TAB.CHEW PO (08:02)
[2018-10-11 15:48] VITALS: BP 100/60; PULSE 83; RESP 16; TEMP 36.7; O2SAT 97
[2018-10-11] MEDS: Atorvastatin Calcium 10 MG Tablet PO (20:06)
[2018-10-12 05:18] VITALS: BP 100/58; PULSE 85
[2018-10-12] MEDS: Losartan Potassium 25 MG Tablet PO (05:18)
[2018-10-12] MEDS: Furosemide 40 MG Tablet PO (05:18)
[2018-10-12] MEDS: Spironolactone 25 MG Tablet PO (05:18)
[2018-10-12] MEDS: Senna Tablet 1 TABLET PO ×2 (05:18→16:45)
[2018-10-12] MEDS: Polyethylene Glycol 3350 17 GM PACKET PO (05:18)
[2018-10-12] MEDS: Metoprolol(XL)Succ 25 MG Tablet 12.5 MG PO (05:18)
[2018-10-12] MEDS: Digoxin 125 MCG Tablet PO (05:18)
[2018-10-12 06:01] LABS: International Normalized Ratio 2.2; Prothrombin Time (Protime)PT. 24.6 SECONDS (11.7-14.9)
[2018-10-12] MEDS: Aspirin 81 MG TAB.CHEW PO (07:26)
[2018-10-12 16:00] VITALS: BP 95/66; PULSE 82; RESP 16; TEMP 36.9; O2SAT 97
[2018-10-12] MEDS: SACUBITRIL/VALSARTAN 24/26 MG TABLET 1 EACH PO (16:45)
[2018-10-13 05:48] VITALS: BP 101/69; PULSE 93
[2018-10-13] MEDS: Metoprolol(XL)Succ 25 MG Tablet 12.5 MG PO (05:48)
[2018-10-13 05:49] VITALS: BP 101/69; PULSE 93
[2018-10-13] MEDS: Digoxin 125 MCG Tablet PO (05:49)
[2018-10-13] MEDS: SACUBITRIL/VALSARTAN 24/26 MG TABLET 1 EACH PO ×2 (05:49→17:17)
[2018-10-13] MEDS: Furosemide 40 MG Tablet PO (05:49)
[2018-10-13] MEDS: Spironolactone 25 MG Tablet PO (05:49)
[2018-10-13] MEDS: Aspirin 81 MG TAB.CHEW PO (09:43)
--- NOTE | 2018-10-13 12:23 | NURSING ---
Patient has c/o SOB this AM, LSCTA, oxygen 98% on RA, pulse 84 and irregular. Patient feels it may be related to Entresto. Dr. Navarro updated, doesn't feel it is related to Entresto, continue to monitor patient.
--- NOTE | 2018-10-13 13:15 | NURSING ---
Per therapy, not able to do much therapy today d/t low BP. Walked from bed to chair and sat down bp 86/56, did a few sitting exercises bp 80/58, walked 30 feet bp 78/44. Pt states just feels tired and a little short of breath during therapy. Will notify Dr. Navarro and continue to monitor.
[2018-10-13 15:26] VITALS: BP 87/43; PULSE 85; RESP 18; TEMP 37.1; O2SAT 95
[2018-10-13 17:22] VITALS: BP 102/68; PULSE 86
[2018-10-13 20:25] VITALS: BP 91/62; PULSE 88; RESP 19; TEMP 36.6; O2SAT 97
[2018-10-14 06:27] VITALS: PULSE 93
[2018-10-14] MEDS: Furosemide 20 MG Tablet PO (06:27)
[2018-10-14] MEDS: Senna Tablet 1 TABLET PO ×2 (06:27→17:21)
[2018-10-14] MEDS: Digoxin 125 MCG Tablet PO (06:27)
[2018-10-14] MEDS: SACUBITRIL/VALSARTAN 24/26 MG TABLET 1 EACH PO ×2 (06:27→17:21)
[2018-10-14 06:33] VITALS: BP 103/59; PULSE 93
[2018-10-14] MEDS: Metoprolol(XL)Succ 25 MG Tablet 12.5 MG PO (06:33)
[2018-10-14] MEDS: Aspirin 81 MG TAB.CHEW PO (08:37)
--- NOTE | 2018-10-14 09:36 | CASEMGMT ---
Social Work IDT met with pt and conference call dtr for care plan meeting. Discussed making progress with therapy - supervision to SBA for ADLs, walking and working on steps. Working on stabilizing pts nursing issues and returning to independence before discharging home. Will provided resources for MOW and transportation to daughter, per her request. Will continue to follow for discharge planning. Danni Hairston, BUILD AUTOMATION ENGINEER DISPATCHER MOTOR VEHICLE
[2018-10-14 10:37] VITALS: PULSE 68
[2018-10-14 15:51] VITALS: BP 101/56; PULSE 88; RESP 18; TEMP 36.3; O2SAT 98
--- NOTE | 2018-10-14 17:38 | NURSING ---
During therapy pt c/o lightheadedness, BP's checked supine 84/40, sitting on EOB 80/49, after supine exercises 97/40. Dr Navarro updated, new order to AMARILYS yeager.
[2018-10-15 05:54] LABS: Prothrombin Time (Protime)PT. 36.4 SECONDS (11.7-14.9)
[2018-10-15] MEDS: SACUBITRIL/VALSARTAN 24/26 MG TABLET 1 EACH PO ×2 (06:09→16:52)
[2018-10-15] MEDS: Polyethylene Glycol 3350 17 GM PACKET PO (06:09)
[2018-10-15] MEDS: Senna Tablet 1 TABLET PO (06:09)
[2018-10-15 06:14] VITALS: PULSE 92
[2018-10-15] MEDS: Digoxin 125 MCG Tablet PO (06:14)
[2018-10-15 06:15] VITALS: BP 101/69; PULSE 93
[2018-10-15] MEDS: Metoprolol(XL)Succ 25 MG Tablet 12.5 MG PO (06:15)
[2018-10-15 06:38] LABS: International Normalized Ratio 3.6
--- NOTE | 2018-10-15 07:25 | PCM.PN.RX ---
<Edwar Henning - Last Filed: 10/15/18 07:25> Progress Note - Pharmacy Subjective: [] TCU Admission Objective: Allergies bee venom protein (honey bee) Allergy (Verified 10/09/18 20:28) Anaphylaxis captopril Adverse Reaction (Verified 10/09/18 20:29) Other Current Medications Generic Name Dose Route Start Last Admin Trade Name Freq PRN Reason Stop Dose Admin Acetaminophen 1,000 mg 10/09/18 21:34 Tylenol PO Q8H PRN PRN MILD PAIN (1-310) Albuterol Sulfate 2 puff 10/09/18 20:35 Ventolin Hfa (Sp) INHALATION Q6H PRN PRN wheezing/SOB Aspirin 81 mg 10/10/18 08:00 10/14/18 08:37 Aspirin, Baby PO 81 mg DAILYCM MICHAEL Administration Atorvastatin Calcium 10 mg 10/11/18 22:00 10/11/18 20:06 Lipitor PO 10 mg Haddad@2200 MICHAEL Administration Bisacodyl 10 mg 10/09/18 21:35 Dulcolax PO DAILY PRN Constipation Cholecalciferol 2,000 unit 10/12/18 06:00 10/15/18 06:08 Vitamin D PO 2,000 unit DAILY MICHAEL Administration Digoxin 125 mcg 10/10/18 06:00 10/15/18 06:14 Lanoxin PO 125 mcg DAILY MICHAEL Administration Metoprolol Succinate 12.5 mg 10/10/18 06:00 10/15/18 06:15 Toprol Xl (Beta Altagracia) PO 12.5 mg DAILY MICHAEL Administration Pneumococcal 13-Valent Conj Vacc 0.5 ml 10/15/18 10:00 Prevnar-13 (Pcv-13) IM 10/15/18 10:01 .ONCE ONE Polyethylene Glycol 17 gm 10/10/18 06:00 10/15/18 06:09 Miralax PO 17 gm DAILY MICHAEL Administration Senna 1 tablet 10/10/18 06:00 10/15/18 06:09 Senokot PO 1 tablet BID MICHAEL Administration Tuberculin PPD 5 tu 10/17/18 10:00 Tubersol, Aplisol, Ppd ID 10/17/18 10:01 X1 ONE Warfarin Sodium 7.5 mg 10/10/18 17:00 10/14/18 17:21 Coumadin (Pbkc) PO 7.5 mg DAILY@1700 MICHAEL Administration Problem List (Last Updated 07/23/18 @ 15:37 by Aydee Evans) Shortness of breath (Acute) COPD (chronic obstructive pulmonary disease) (Chronic) Liver failure (Acute) Bipolar disorder (Chronic) Coronary artery disease (Chronic) Acute on chronic systolic (congestive) heart failure (Chronic) GERD (gastroesophageal reflux disease) (Chronic) 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Chronic) OCD (obsessive compulsive disorder) (Chronic) PAOD (peripheral arterial occlusive disease) (Chronic) Panic disorder (Chronic) Tobacco abuse (Chronic) Atrial flutter (Chronic) Elevated liver enzymes (Acute) Acute kidney injury (Acute) Elevated lactic acid level (Acute) Vital Signs Temp Pulse Resp BP Pulse Ox 97.3 F L 93 18 101/69 98 10/14/18 15:51 10/15/18 06:15 10/14/18 15:51 10/15/18 06:15 10/14/18 15:51 Oxygen Delivery Method Room Air Weight: 79.968 kg Body Mass Index (BMI) 23.3 Sodium 137 mmol/L (136-145) 10/10/18 07:30 Potassium 4.1 mmol/L (3.5-5.1) 10/10/18 07:30 Chloride 105 mmol/L (98-107) 10/10/18 07:30 Carbon Dioxide 25.0 mmol/L (21.0-32.0) 10/10/18 07:30 7 (5-15) 10/10/18 07:30 BUN 14 mg/dL (7-18) 10/10/18 07:30 0.82 mg/dL (0.70-1.30) 10/10/18 07:30 Est GFR (MDRD) Af Amer 120 mL/min (>60) 10/10/18 07:30 Est GFR (MDRD) Non-Af 99 mL/min (>60) 10/10/18 07:30 17.0 RATIO (10-20) 10/10/18 07:30 Glucose 102 mg/dL (74-106) 10/10/18 07:30 Assessment/Plan: 1) Pain: Acetaminophen 1000mg po q8h prn for mild pain. Please continue to monitor prn usage and for signs/symptoms of increased/decreased pain. 2) Hyperlipidemia: Atorvastatin 10mg po sundays at 2200. Pt's last cholesterol levels were within normal limits. Please continue to monitor. Pt's last LFTs were elevated (pt noted to have acute liver failure). Please continue to monitor 3) COPD: Albuterol HFA 2 puffs q6h prn for wheezing/sob. Please continue to monitor for signs/symptoms of COPD *4) Vitamin D deficiency: Vitamin D 2000 units po daily. Pt's last Vitamin D level was 07/2018. Vitamin D is metabolized by the liver. Please consider another Vitamin D level and make any dose adjustments if necessary. Thanks 5) CAD: Metoprolol Succinate 12.5mg po daily, Aspirin 81mg po daily, Entresto 24/26mg po bid. The use of Entresto in severe hepatic impairment is not recommended. Please continue to monitor pt's liver function. 6) Acute DVT: Warfarin 7.5mg po daily at 1700. PT's INR on 10/15/18 is 3.6. Please continue to monitor *7) Systolic Heart Failure: Entresto 24/26mg po bid, Digoxin 125mcg po daily, Metoprolol succinate 12.5mg po daily. Please consider a yearly Digoxin level. Pt's K+ is within normal limits. Please continue to monitor pt's blood pressures. Psychotropic Medications: none Unnecessary Medications: none *Bowel Regimen: Bisacodyl 10mg po daily prn constipation, Miralax 17gm po daily, Senna 1 tablet po bid. Out of 6 total Miralax doses, Pt has refused 4. Please consider making Miralax prn. Thanks Date of Note:: 10/15/18 - Provider Comments Provider responsibility: Provider responsible to enter orders to implement recommendations <Santiago Navarro Chi - Last Filed: 10/15/18 21:11> Progress Note - Pharmacy Subjective: [] Objective: Allergies bee venom protein (honey bee) Allergy (Verified 10/09/18 20:28) Anaphylaxis captopril Adverse Reaction (Verified 10/09/18 20:29) Other Current Medications Generic Name Dose Route Start Last Admin Trade Name Freq PRN Reason Stop Dose Admin Acetaminophen 1,000 mg 10/09/18 21:34 Tylenol PO Q8H PRN PRN MILD PAIN (1-3/10) Albuterol Sulfate 2 puff 10/09/18 20:35 Ventolin Hfa (Sp) INHALATION Q6H PRN PRN wheezing/SOB Aspirin 81 mg 10/10/18 08:00 10/15/18 09:04 Aspirin, Baby PO 81 mg DAILYCM MICHALE Administration Atorvastatin Calcium 10 mg 10/11/18 22:00 10/11/18 20:06 Lipitor PO 10 mg Haddad@2200 MICHAEL Administration Bisacodyl 10 mg 10/09/18 21:35 Dulcolax PO DAILY PRN Constipation Cholecalciferol 2,000 unit 10/12/18 06:00 10/15/18 06:08 Vitamin D PO 2,000 unit DAILY [facility] Administration Digoxin 125 mcg 10/10/18 06:00 10/15/18 06:14 Lanoxin PO 125 mcg DAILY [facility] Administration Metoprolol Succinate 12.5 mg 10/10/18 06:00 10/15/18 06:15 Toprol Xl (Beta Altagracia) PO 12.5 mg DAILY MICHAEL Administration Polyethylene Glycol 17 gm 10/10/18 06:00 10/15/18 06:09 Miralax PO 17 gm DAILY [facility] Administration Senna 1 tablet 10/10/18 06:00 10/15/18 16:52 Senokot PO Not Given BID [facility] Tuberculin PPD 5 tu 10/17/18 10:00 Tubersol, Aplisol, Ppd ID 10/17/18 10:01 X1 ONE Warfarin Sodium 5 mg 10/15/18 17:00 10/15/18 16:51 Coumadin (Pbkc) PO 5 mg DAILY@1700 [facility] Administration Problem List (Last Updated 07/23/18 @ 15:37 by Aydee Evans) Shortness of breath (Acute) COPD (chronic obstructive pulmonary disease) (Chronic) Liver failure (Acute) Bipolar disorder (Chronic) Coronary artery disease (Chronic) Acute on chronic systolic (congestive) heart failure (Chronic) GERD (gastroesophageal reflux disease) (Chronic) 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Chronic) OCD (obsessive compulsive disorder) (Chronic) PAOD (peripheral arterial occlusive disease) (Chronic) Panic disorder (Chronic) Tobacco abuse (Chronic) Atrial flutter (Chronic) Elevated liver enzymes (Acute) Acute kidney injury (Acute) Elevated lactic acid level (Acute) Vital Signs Temp Pulse Resp BP Pulse Ox 97.8 F 82 16 104/64 99 10/15/18 16:00 10/15/18 16:00 10/15/18 16:00 10/15/18 16:00 10/15/18 16:00 Oxygen Delivery Method Room Air Weight: 79.968 kg Body Mass Index (BMI) 23.3 Sodium 137 mmol/L (136-145) 10/10/18 07:30 Potassium 4.1 mmol/L (3.5-5.1) 10/10/18 07:30 Chloride 105 mmol/L (98-107) 10/10/18 07:30 Carbon Dioxide 25.0 mmol/L (21.0-32.0) 10/10/18 07:30 7 (5-15) 10/10/18 07:30 BUN 14 mg/dL (7-18) 10/10/18 07:30 0.82 mg/dL (0.70-1.30) 10/10/18 07:30 Est GFR (MDRD) Af Amer 120 mL/min (>60) 10/10/18 07:30 Est GFR (MDRD) Non-Af 99 mL/min (>60) 10/10/18 07:30 17.0 RATIO (10-20) 10/10/18 07:30 Glucose 102 mg/dL (74-106) 10/10/18 07:30 Assessment/Plan: Psychotropic Medications: Unnecessary Medications: Bowel Regimen: - Provider Comments Provider responsibility: Provider responsible to enter orders to implement recommendations Provider Comments to Recommendations by Pharmacy: Agree
--- NOTE | 2018-10-15 08:06 | NURSING ---
New order to decrease coumadin to 5mg PO daily r/t elevated INR.
[2018-10-15] MEDS: Aspirin 81 MG TAB.CHEW PO (09:04)
--- NOTE | 2018-10-15 14:05 | MDS.RN ---
Pain interview for [place] 10/16/18 completed.
[2018-10-15 16:00] VITALS: BP 104/64; PULSE 82; RESP 16; TEMP 36.6; O2SAT 99
[2018-10-16 05:49] VITALS: PULSE 92
[2018-10-16] MEDS: Digoxin 125 MCG Tablet PO (05:49)
[2018-10-16 05:50] VITALS: BP 100/60; PULSE 92
[2018-10-16] MEDS: Metoprolol(XL)Succ 25 MG Tablet 12.5 MG PO (05:50)
[2018-10-16] MEDS: Senna Tablet 1 TABLET PO (05:50)
[2018-10-16] MEDS: SACUBITRIL/VALSARTAN 24/26 MG TABLET 1 EACH PO ×2 (05:50→17:15)
[2018-10-16 06:37] LABS: Digoxin Level 0.63 ng/mL (0.80-2.00)
[2018-10-16] MEDS: Aspirin 81 MG TAB.CHEW PO (08:05)
--- NOTE | 2018-10-16 09:08 | CASEMGMT ---
Social Work BIMS and PHQ-9 completed for MDS assessment. Danni Hairston, CLAIMS VICE PRESIDENT ELECTRICAL EXPERIMENTAL MECHANIC
--- NOTE | 2018-10-16 15:16 | DCINST_ITS ---
- Discharge Diagnoses Current Active Problems: Current Active and Chronic Problems (Last Updated 07/23/18 @ 15:37 by Aydee Evans) Shortness of breath (Acute) COPD (chronic obstructive pulmonary disease) (Chronic) Liver failure (Acute) Bipolar disorder (Chronic) Coronary artery disease (Chronic) Acute on chronic systolic (congestive) heart failure (Chronic) GERD (gastroesophageal reflux disease) (Chronic) 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Chronic) OCD (obsessive compulsive disorder) (Chronic) PAOD (peripheral arterial occlusive disease) (Chronic) Panic disorder (Chronic) Tobacco abuse (Chronic) Atrial flutter (Chronic) Elevated liver enzymes (Acute) Acute kidney injury (Acute) Elevated lactic acid level (Acute) You will use the following diet at home:: Regular, Fluid restricted (specify 2000 mls, 1500 mls) - 1500mls. Your food should be the consistency of: Regular Your liquids should be the consistency of: Regular/Thin Discharge Activity: Return to Normal Activity, May Shower, Use Walker Weight Bearing Status: Weight bearing as tolerated Call your doctor if you observe: Fever of 101 or Higher, Inability to urinate, Inability to have a bowel movement, Shortness of breath, Chest pain, Uncontro lled pain Allergies/Adverse Reactions: Allergies bee venom protein (honey bee) Allergy (Verified 10/09/18 20:28) Anaphylaxis captopril Adverse Reaction (Verified 10/09/18 20:29) Other Medications to take at Discharge Cholecalciferol (Vitamin D3) [Vitamin D3] 5,000 unit PO DAILY 09/25/18 Rosuvastatin Calcium 5 mg PO AYALA 09/25/18 Aspirin 81 mg PO DAILY 10/09/18 Metoprolol Succinate 12.5 mg PO DAILY 10/09/18 Acetaminophen [Tylenol] 1,000 mg PO Q8H PRN PRN tablet 10/16/18 Albuterol IH (ProAir) [Proair Hfa] 2 puff INHALATION Q6H PRN PRN #1 inhaler 10/16/18 Cholecalciferol (VIT D3) [Vitamin D3] 2,000 unit PO DAILY tablet 10/16/18 Digoxin [Lanoxin] 125 mcg PO DAILY #30 tab 10/16/18 Sacubitril/Valsartan 24/26 mg [Entresto 24 mg-26 mg Tablet] 1 ea PO BID #14 tab 10/16/18 Warfarin [Coumadin] 5 mg PO DAILY@1700 #30 tab 10/16/18 The following prescriptions were given: Warfarin [Coumadin] 5 mg PO DAILY@1700 #30 tab Transmission Status: Pending to [facility]/pharmacy #[id number] Sacubitril/Valsartan 24/26 mg [Entresto 24 mg-26 mg Tablet] 1 ea PO BID #14 tab Transmission Status: Pending to [facility]/pharmacy #[id number] Digoxin [Lanoxin] 125 mcg PO DAILY #30 tab Transmission Status: Pending to [facility]/pharmacy #[id number] Albuterol IH (ProAir) [Proair Hfa] 2 puff INHALATION Q6H PRN PRN #1 inhaler PRN Reason: wheezing/SOB Transmission Status: Pending to [facility]pharmacy #[id number] Primary Care Physician: Jerel Caputo MD [Primary Care Provider] - Please follow up with your Primary Care Physician in: 1 week. Test Results: Test results from this visit will be discussed in further detail at your follow- up appointment, if applicable. Please Follow Up With: Petty Brown PA When: 2 weeks. Please Follow Up With: Richar Stevens (will be seeing Diane Harp) When: 2 weeks. Please Follow Up With: Richar Stevens Proposed Discharge Date: 10/19/18
--- NOTE | 2018-10-16 15:18 | PCM.DC.SUM ---
Discharge Date and Diagnosis - Problem List Patient Problems: Active and Suspected Problems (Last Updated 07/23/18 @ 15:37 by Aydee Evans) Shortness of breath (Acute) Liver failure (Acute) Elevated liver enzymes (Acute) Acute kidney injury (Acute) Elevated lactic acid level (Acute) Date of Admission: 10/09/18 Date of Discharge: 10/19/18 - Primary Discharge Diagnosis Active and Suspected Problems (Last Updated 07/23/18 @ 15:37 by Aydee No) Shortness of breath (Acute) Liver failure (Acute) Elevated liver enzymes (Acute) Acute kidney injury (Acute) Elevated lactic acid level (Acute) - Secondary Discharge Diagnosis Chronic Problems (Last Updated 07/23/18 @ 15:37 by Aydee No) COPD (chronic obstructive pulmonary disease) (Chronic) Bipolar disorder (Chronic) Coronary artery disease (Chronic) Acute on chronic systolic (congestive) heart failure (Chronic) GERD (gastroesophageal reflux disease) (Chronic) 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Chronic) OCD (obsessive compulsive disorder) (Chronic) PAOD (peripheral arterial occlusive disease) (Chronic) Panic disorder (Chronic) Tobacco abuse (Chronic) Atrial flutter (Chronic) Non-STEMI (non-ST elevated myocardial infarction) (Chronic) History of coronary artery bypass surgery (Chronic ~01/06/07) CABG x5- MASCORRO to LAD, bridge diagonal, JENNIFER to PDA, Right Radial artery to posterolateral CFX, bridge to lateral CFX 01/06/07 Presence of stent in coronary artery (Chronic ~12/07/13) PTCA/stent to the mid LAD, PTCA/stent prox LAD, and PTCA/stent to the distal LAD 12/07/13 Peripheral vascular disease (Chronic) Hyperlipemia (Chronic) Cardiomyopathy in disease classified elsewhere (Chronic) Atherosclerotic heart disease of [place] coronary artery without angina pectoris (Chronic) Type 2 diabetes mellitus (Chronic) Pre diabetic Hospital Course and Treatment Imaging Results: 10/09/18 20:37 Diet: 2 Gram Sodium Labs (Last 48 Hours) 10/15/18 10/16/18 10/16/18 05:35 05:10 05:10 PT 36.4 H INR 3.6 H* Vit D 1,25-Dihydroxy Pending Digoxin 0.63 L Operations: None Procedures: None Summary of Care Provided: The patient is a 68 year old Male with below past medical history hospitalized for cardiogenic shock, liver failure, acute kidney injury, complicated by acute on chronic systolic congestive heart failure, extensive DVT, admitted to TCU with debility, here for rehabilitation, strengthening, prior to discharge home with family. On TCU, resident started on Entresto 24/26MG twice daily for chronic systolic congestive heart failure, he had mild hypotension which improved over time. Entresto 24/26MG twice daily thru 10/26/2018, then Entresto 49/51MG twice daily thru 11/10/2018, then Entresto 97/103MG twice daily. Resident declined ICD, and LifeVest. Entresto added to risk of from heart failure, decrease risk of hospitalization, and improve quality of life. Discharge home with family, [facility]. Patient Problems: Active and Suspected Problems (Last Updated 07/23/18 @ 15:37 by Aydee Evans) Shortness of breath (Acute) Liver failure (Acute) Elevated liver enzymes (Acute) Acute kidney injury (Acute) Elevated lactic acid level (Acute) - Physical Exam Vital Signs Temp Pulse Resp BP Pulse Ox 97.8 F 92 16 100/60 99 10/15/18 16:00 10/16/18 05:50 10/15/18 16:00 10/16/18 05:50 10/15/18 16:00 Oxygen Delivery Method Room Air Weight: 79.968 kg Body Mass Index (BMI) 23.3 Intake and Output for Last 24 Hours 10/14/18 10/15/18 10/16/18 23:59 23:59 23:59 Intake Total 1240 / 1240 1140 / 1140 600 / 600 Output Total 800 / 800 350 / 350 Balance 440 / 440 790 / 790 600 / 600 Laboratory Tests Past 24 Hrs 10/16/18 10/16/18 05:10 05:10 Vit D 1,25-Dihydroxy Pending Digoxin 0.63 L Discharge Diet: 6 Cup Fluid Restriction, 2000 mg Sodium Diet Discharge Activity: Return to Normal Activity, May Shower, Use Walker Weight Bearing Status: Weight bearing as tolerated Call your doctor if you observe: Fever of 101 or Higher, Inability to urinate, Inability to have a bowel movement, Shortness of breath, Chest pain, Uncontrolled pain Home Medications: Medications to take at Discharge Cholecalciferol (Vitamin D3) [Vitamin D3] 5,000 unit PO DAILY 09/25/18 Rosuvastatin Calcium 5 mg PO AYALA 09/25/18 Aspirin 81 mg PO DAILY 10/09/18 Metoprolol Succinate 12.5 mg PO DAILY 10/09/18 Acetaminophen [Tylenol] 1,000 mg PO Q8H PRN PRN tablet 10/16/18 Albuterol IH (ProAir) [Proair Hfa] 2 puff INHALATION Q6H PRN PRN #1 inhaler 10/16/18 Cholecalciferol (VIT D3) [Vitamin D3] 2,000 unit PO DAILY tablet 10/16/18 Digoxin [Lanoxin] 125 mcg PO DAILY #30 tab 10/16/18 Sacubitril/Valsartan 24/26 mg [Entresto 24 mg-26 mg Tablet] 1 ea PO BID #14 tab 10/16/18 Warfarin [Coumadin] 5 mg PO DAILY@1700 #30 tab 10/16/18 Following Prescrptions Were Given to Patient: Warfarin [Coumadin] 5 mg PO DAILY@1700 #30 tab Transmission Status: Pending to [id number] Sacubitril/Valsartan 24/26 mg [Entresto 24 mg-26 mg Tablet] 1 ea PO BID #14 tab Transmission Status: Pending to [id number] Digoxin [Lanoxin] 125 mcg PO DAILY #30 tab Transmission Status: Pending to [id number] Albuterol IH (ProAir) [Proair Hfa] 2 puff INHALATION Q6H PRN PRN #1 inhaler PRN Reason: wheezing/SOB Transmission Status: Pending to [id number] Other Amb Orders: Prothrombin Time w/INR Time Frame: 1 Day, Facility: [facility], Location: Laboratory Primary Care Physician: Jerel Caputo MD [Primary Care Provider] - Please follow up with your Primary Care Physician in: 1 week. Please Follow Up With: Petty Brown PA When: 2 weeks. Please Follow Up With: Richar Stevens (will be seeing Diane Harp) When: 2 weeks. Please Follow Up With: Richar Stevens Disposition: Home with Home Health Minutes spent on discharge:: 35 Patient Condition:: Stable Medical Necessity - Tobacco Use Smoking Status: Former smoker Tobacco Use: Non-smoker Meaningful Use Info Meaningful Use Diagnoses (Choose all that apply): None applicable
--- NOTE | 2018-10-16 15:22 | HHNOTE_ITS ---
Home Health Note - Plan Problems: Patient was seen for (Last Updated 07/23/18 @ 15:37 by Aydee Evans) Shortness of breath (Acute) COPD (chronic obstructive pulmonary disease) (Chronic) Liver failure (Acute) Bipolar disorder (Chronic) Coronary artery disease (Chronic) Acute on chronic systolic (congestive) heart failure (Chronic) GERD (gastroesophageal reflux disease) (Chronic) 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Chronic) OCD (obsessive compulsive disorder) (Chronic) PAOD (peripheral arterial occlusive disease) (Chronic) Panic disorder (Chronic) Tobacco abuse (Chronic) Atrial flutter (Chronic) Elevated liver enzymes (Acute) Acute kidney injury (Acute) Elevated lactic acid level (Acute) Complete List of Medical Problems (Last Updated 07/23/18 @ 15:37 by Aydee Evans) Shortness of breath (Acute) COPD (chronic obstructive pulmonary disease) (Chronic) Liver failure (Acute) Bipolar disorder (Chronic) Coronary artery disease (Chronic) Acute on chronic systolic (congestive) heart failure (Chronic) GERD (gastroesophageal reflux disease) (Chronic) 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Chronic) OCD (obsessive compulsive disorder) (Chronic) PAOD (peripheral arterial occlusive disease) (Chronic) Panic disorder (Chronic) Tobacco abuse (Chronic) Atrial flutter (Chronic) Elevated liver enzymes (Acute) Acute kidney injury (Acute) Elevated lactic acid level (Acute) Femoral bruit (Acute) Chest pain (Acute) Abnormal stress test (Acute) Non-STEMI (non-ST elevated myocardial infarction) (Chronic) History of coronary artery bypass surgery (Chronic ~01/06/07) Presence of stent in coronary artery (Chronic ~12/07/13) Peripheral vascular disease (Chronic) Hyperlipemia (Chronic) Cardiomyopathy in disease classified elsewhere (Chronic) Atherosclerotic heart disease of [place] coronary artery without angina pectoris (Chronic) Type 2 diabetes mellitus (Chronic) - Requirements and Reasons Disciplines Needed/Ordered: Long Term Reason for Disciplines: Disease Specific Monitoring/education, Medication Management/Knowledge Deficit, Observation Assessment, Labs for Short Term Therapeutic Monitoring Related To: Change in Medical Treatment Plan, Limited/Poor Endurance, Shortness of Breath with Activity Patient is unable to leave the home: Without Aid of Supportive Devices (crutches, cane, wheelchair, walker), Without the assistance of another person
--- NOTE | 2018-10-16 15:35 | CASEMGMT ---
Social Work Pt requesting to discharge home. Pt met with physician who is agreeable to DC 10/19. Pt agreeable to referral to [facility]. Daughter aware. Danni Hairston, SMALL PARTS SHAPER OPERATOR BEAD MAKER
[2018-10-16 16:00] VITALS: BP 98/61; PULSE 82; RESP 16; TEMP 36.7; O2SAT 98
--- NOTE | 2018-10-16 17:52 | NURSING ---
Addendum entered by Nai Carter 10/16/18 19:58: Pt sister arrived, very upset that Dr Navarro changed pt meds around, verbalized many times how unhappy she is with Dr Navarro meds changed valsartan to entresto, lasix and aldactone being DC'd. Explained that water pills d/c'd d/t pt low BPs. 1:1 emotional support provided. sister wanted to take pt home today, but pt stated no, he trusted Dr Navarro decision and will go home on Friday Original Note: Daughter Marah called in and requesting that pt be on Valsartan as previously ordered by [facility] instead of Entresto. Daughter also requesting pt be DC home on Friday instead of Friday. Dr Navarro updated on all, ok to go home on Friday, also ok that pt return to his medication Valsartan. Daughter updated.
[2018-10-17 05:20] VITALS: BP 101/69; PULSE 87
[2018-10-17] MEDS: Digoxin 125 MCG Tablet PO (05:20)
[2018-10-17] MEDS: Metoprolol(XL)Succ 25 MG Tablet 12.5 MG PO (05:20)
[2018-10-17] MEDS: SACUBITRIL/VALSARTAN 24/26 MG TABLET 1 EACH PO (05:20)
[2018-10-17] MEDS: Aspirin 81 MG TAB.CHEW PO (07:54)
[2018-10-17 08:18] LABS: Absolute Lymphocyte Count 1.88 X10^3/ul (0.83-4.51); Absolute Neutrophil Count 3.8 X10^3/uL (2.0-7.7); Basophil# 0.09 X10^3/uL; Basophil% 1.2 % (0-1); Eosinophil# 0.94 X10^3/uL; Eosinophils% 12.3 % (0-5); Hematocrit 33.1 % (40-54); Hemoglobin 11.1 g/dl (13.0-16.5); Lymphocyte # 1.88 X10^3/ul (4.0); Lymphocyte % 24.6 % (19-41); Mean Corp Hgb Conc 33.5 g/gl (32-36); Mean Corpuscular Hgb 31.4 pg (27.0-32.0); Mean Corpuscular Volume 93.5 fL (80-94); Mean Platelet Vol. 8.8 fl (6.2-12.0); Monocyte# 0.87 X10^3/uL; Monocyte% 11.4 % (0-10); Neutrophil # 3.84 X10^3/uL (2.7-7.7); Neutrophil % 50.1 % (47-70); POSITIVE COUNT NO; POSITIVE DIFFERENTIAL NO; POSITIVE MORPHOLOGY NO; Platelet Count 470 K/mm3 (150-450); RBC Distribution Width CV 14.5 % (11.6-14.6); RBC Distribution Width SD 47.8 fl (35.1-43.9); Red Blood Count 3.54 M/mm3 (4.6-6.2); White Blood Count 7.7 K/mm3 (4.4-11.0)
[2018-10-17 08:26] LABS: Anion Gap 4 (5-15); BUN 14 mg/dL (7-18); BUN/Creat Ratio 17.1 RATIO (10-20); Calcium,Total 8.9 mg/dL (8.5-10.1); Chloride 103 mmol/L (98-107); Creatinine, Serum 0.82 mg/dL (0.70-1.30); EST Glomerular Filtration Rate 100 mL/min (>60); Est Glom Filt Rate - Afr Amer 121 mL/min (>60); Estimated Creatinine Clearance 100.23 ml/min; Glucose 101 mg/dL (74-106); Potassium 4.4 mmol/L (3.5-5.1); Sodium Level 132 mmol/L (136-145)
--- NOTE | 2018-10-17 15:01 | CASEMGMT ---
SOCIAL WORK RECEIVED CALL FROM UNIT. PATIENT AND FAMILY WANTING TO D/C HOME TODAY. DISCUSSED WITH DEMO EVENT SPECIALIST, PATIENT ABLE TO D/C HOME TODAY IF OK WITH DR. ALBERTO. LUIS ALFREDO ON TCU UPDATED. YAHAIRA MARTINS, PAINTING CONTRACTOR, STATISTICIAN THEORETICAL.
[2018-10-17 15:30] VITALS: BP 96/64; PULSE 86; RESP 20; TEMP 37; O2SAT 100
--- NOTE | 2018-10-17 16:56 | NURSING ---
Pt's sister verbalizing intent to be noncompliant with discharge medications upon D/C, educated against but not receptive
--- NOTE | 2018-10-20 09:17 | MDS.RN ---
Information for the mds was obtained from review of the clinical record, interview of resident, staff, and direct observation of resident's care.
[2018-10-20 12:29] LABS: Vitamin D 1,25-Dihydroxy 32.5 pg/mL (19.9-79.3)
== END 2018-10-17 16:55 | disposition home health service (06) | DRG 948 ==
PROVIDERS: Admitting Provider Family Medicine Geriatric Medicine; Family Provider Family Medicine; PCP Family Medicine; Referring Provider Family Medicine Geriatric Medicine; Visit Provider Family Medicine Geriatric Medicine
DX: R53.81 Other malaise (principal); I50.22 Chronic systolic (congestive) heart failure; C83.30 Diffuse large B-cell lymphoma, unspecified site; I82.499 Acute embolism and thrombosis of other specified deep vein of unspecified lower extremity; E78.5 Hyperlipidemia, unspecified; I25.10 Atherosclerotic heart disease of native coronary artery without angina pectoris; J44.9 Chronic obstructive pulmonary disease, unspecified; E55.9 Vitamin D deficiency, unspecified; K21.9 Gastro-esophageal reflux disease without esophagitis; I48.2 Chronic atrial fibrillation; I25.2 Old myocardial infarction; E11.51 Type 2 diabetes mellitus with diabetic peripheral angiopathy without gangrene; Z95.1 Presence of aortocoronary bypass graft; I25.5 Ischemic cardiomyopathy
CPT/HCPCS: 36415; 80048; 80162; 82652; 85025; 85610; 97110; 97116; 97127; 97162; 97166; 97530; 97535; 97802; G0515

== ENCOUNTER → 2019-02-10 14:17 | Outpatient (CLI) | payer MEDICARE, SELFPAY ==
[2018-10-09 19:44] VITALS: BMI 23.3
[2019-02-10 16:30] LABS: Vitamin D,25 Hydroxy 39.8 ng/mL (29.95-100.01)
== END ==
PROVIDERS: Family Provider Family Medicine; PCP Family Medicine; Referring Provider Family Medicine; Visit Provider Family Medicine
DX: E55.9 Vitamin D deficiency, unspecified (principal)
CPT/HCPCS: 36415; 82306

== ENCOUNTER → 2019-05-07 09:54 | Outpatient (CLI) | payer MEDICARE, SELFPAY ==
[2018-10-09 19:44] VITALS: BMI 23.3
[2019-05-07 12:31] LABS: Absolute Lymphocyte Count 2.64 X10^3/uL (0.83-4.51); Absolute Neutrophil Count 2.9 X10^3/uL (2.0-7.7); Basophil# 0.05 X10^3/uL; Basophil% 0.8 % (0-1); Eosinophil# 0.17 X10^3/uL; Eosinophils% 2.7 % (0-5); Hematocrit 45.5 % (40-54); Hemoglobin 15.3 g/dL (13.0-16.5); Lymphocyte # 2.64 X10^3/ul (4.0); Mean Corp Hgb Conc 33.6 g/dL (32-36); Mean Corpuscular Hgb 30.6 pg (27.0-32.0); Mean Platelet Vol. 10.8 fl (6.2-12.0); Monocyte# 0.55 X10^3/uL; Monocyte% 8.8 % (0-10); NRBC Flagged by Analyzer 0 % (0-5); Neutrophil # 2.85 X10^3/uL (2.7-7.7); Neutrophil % 45.4 % (47-70); Platelet Count 172 K/mm3 (150-450); RBC Distribution Width CV 12.1 % (11.6-14.6); White Blood Count 6.3 K/mm3 (4.4-11.0)
[2019-05-07 12:56] LABS: Vitamin D,25 Hydroxy 40.4 ng/mL (29.95-100.01)
[2019-05-07 13:00] LABS: AST(SGOT) 19 U/L (15-37); Alanine Aminotransfer ALT/SGPT 30 U/L (16-61); Albumin, Serum 4.1 g/dL (3.2-5.0); Alkaline Phosphatase 53 U/L (45-117); Anion Gap 8 (5-15); BUN 20 mg/dL (7-18); BUN/Creat Ratio 17.9 RATIO (10-20); Calcium,Total 9.4 mg/dL (8.5-10.1); Chloride 102 mmol/L (98-107); Cholesterol 213 mg/dL (200); Creatinine, Serum 1.12 mg/dL (0.70-1.30); EST Glomerular Filtration Rate 69 mL/min (>60); Est Glom Filt Rate - Afr Amer 84 mL/min (>60); Glucose 97 mg/dL (74-106); High Density Lipoprotein 49 mg/dL; Magnesium 2.1 mg/dL (1.6-2.6); Potassium 4.2 mmol/L (3.5-5.1); Protein, Total 8.1 g/dL (6.4-8.2); Sodium Level 134 mmol/L (136-145); Triglycerides 153 mg/dL; Very Low Density Lipoprotein 31 mg/dL (5-40)
[2019-05-07 13:07] LABS: Hemoglobin A1c 5.9 % (4.2-6.3)
== END ==
PROVIDERS: PCP Family Medicine; Referring Provider Family Medicine; Visit Provider Family Medicine
DX: E55.9 Vitamin D deficiency, unspecified (principal); E78.5 Hyperlipidemia, unspecified; R53.83 Other fatigue; I25.10 Atherosclerotic heart disease of native coronary artery without angina pectoris; R73.02 Impaired glucose tolerance (oral)
CPT/HCPCS: 36415; 80053; 80061; 82306; 83036; 83735; 85025

== ENCOUNTER → 2019-09-02 10:48 | Outpatient (CLI) | payer MEDICARE, SELFPAY ==
[2018-10-09 19:44] VITALS: BMI 23.3
[2019-09-02 12:43] LABS: Absolute Lymphocyte Count 2.03 X10^3/uL (0.83-4.51); Absolute Neutrophil Count 2.6 X10^3/uL (2.0-7.7); Basophil# 0.04 X10^3/uL; Basophil% 0.7 % (0-1); Eosinophil# 0.12 X10^3/uL; Eosinophils% 2.2 % (0-5); Hematocrit 42.8 % (40-54); Hemoglobin 14.5 g/dL (13.0-16.5); Lymphocyte # 2.03 X10^3/ul (4.0); Lymphocyte % 36.9 % (19-41); Mean Corp Hgb Conc 33.9 g/dL (32-36); Mean Corpuscular Hgb 31.1 pg (27.0-32.0); Mean Corpuscular Volume 91.8 fL (80-94); Mean Platelet Vol. 10.6 fl (6.2-12.0); Monocyte# 0.66 X10^3/uL; NRBC Flagged by Analyzer 0 % (0-5); Neutrophil # 2.63 X10^3/uL (2.7-7.7); Neutrophil % 47.8 % (47-70); Platelet Count 203 K/mm3 (150-450); RBC Distribution Width CV 12.4 % (11.6-14.6); RBC Distribution Width SD 41.3 fl (35.1-43.9); Red Blood Count 4.66 M/mm3 (4.6-6.2); White Blood Count 5.5 K/mm3 (4.4-11.0)
[2019-09-02 12:46] LABS: Prothrombin Time (Protime)PT. 22.2 SECONDS (11.7-14.9)
[2019-09-02 12:50] LABS: Hemoglobin A1c 5.7 % (3.8-5.6)
[2019-09-02 13:14] LABS: Vitamin D,25 Hydroxy 41.7 ng/mL
[2019-09-02 13:20] LABS: ALB/GLOB Ratio 1.1 RATIO (0.9-2.4); AST(SGOT) 24 U/L (15-37); Alanine Aminotransfer ALT/SGPT 26 U/L (16-61); Albumin, Serum 4.1 g/dL (3.2-5.0); Alkaline Phosphatase 49 U/L (45-117); Anion Gap 5 (5-15); BUN 19 mg/dL (7-18); BUN/Creat Ratio 21.2 RATIO (10-20); Calcium,Total 9.4 mg/dL (8.5-10.1); Chloride 107 mmol/L (98-107); Cholesterol 270 mg/dL (200); EST Glomerular Filtration Rate 90 mL/min (>60); Est Glom Filt Rate - Afr Amer 109 mL/min (>60); Globulin 3.8 g/dL (2.2-4.2); Glucose 94 mg/dL (74-106); High Density Lipoprotein 45 mg/dL; Potassium 4.2 mmol/L (3.5-5.1); Protein, Total 7.9 g/dL (6.4-8.2); Sodium Level 138 mmol/L (136-145); Triglycerides 162 mg/dL; Very Low Density Lipoprotein 32 mg/dL (5-40)
== END ==
PROVIDERS: PCP Family Medicine; Referring Provider Family Medicine; Visit Provider Family Medicine
DX: R73.02 Impaired glucose tolerance (oral) (principal); E78.5 Hyperlipidemia, unspecified; I50.22 Chronic systolic (congestive) heart failure; E55.9 Vitamin D deficiency, unspecified; I51.3 Intracardiac thrombosis, not elsewhere classified
CPT/HCPCS: 36415; 80053; 80061; 82306; 83036; 85025; 85610

== ENCOUNTER → 2019-09-08 13:45 | Outpatient (CLI) | payer MEDICARE, SELFPAY ==
[2018-10-09 19:44] VITALS: BMI 23.3
--- NOTE | 2019-09-08 13:47 | RAD_ITS ---
STUDY: X-RAY - LEFT SHOULDER REASON FOR EXAM: Male, 69 years old. PAIN, NO INJURY, TECHNIQUE: 3 view(s) of the shoulder. COMPARISON: None. FINDINGS: There is mild degenerative arthrosis of the glenohumeral articulation. There is degenerative arthrosis of the acromioclavicular joint without inferior osseous spur formation. Normal acromion. Normal humeral head and visualized proximal humerus. The soft tissue structures are unremarkable. Normal visualized pulmonary apex. RAD/Shoulder min 2 Views IMPRESSION: Mild degenerative changes of the glenohumeral joint and acromioclavicular joint without fracture, osteolytic or blastic bone lesion. Electronically Signed: Jennifer Reyes MD at 21:27 EDT , Service support ,
== END ==
PROVIDERS: PCP Family Medicine; Referring Provider Family Medicine; Visit Provider Family Medicine
DX: M25.512 Pain in left shoulder (principal)
CPT/HCPCS: 73030

== ENCOUNTER → 2019-12-22 11:02 | Outpatient (CLI) | payer MEDICARE, SELFPAY ==
[2018-10-09 19:44] VITALS: BMI 23.3
[2019-12-22 11:20] LABS: Red Blood Cells-Urine 0 SEEN /hpf (0-5); Squamous Epithelial Cells - UA 0 SEEN /hpf (0-5); White Blood Cells 0 SEEN /hpf (0-5)
[2019-12-22 12:25] LABS: Absolute Lymphocyte Count 2.03 X10^3/uL (0.83-4.51); Absolute Neutrophil Count 3.4 X10^3/uL (2.0-7.7); Basophil# 0.04 X10^3/uL; Basophil% 0.6 % (0-1); Eosinophils% 1.6 % (0-5); Hematocrit 43.4 % (40-54); Hemoglobin 14.6 g/dL (13.0-16.5); Lymphocyte # 2.03 X10^3/ul (4.0); Lymphocyte % 32.4 % (19-41); Mean Corp Hgb Conc 33.6 g/dL (32-36); Mean Corpuscular Hgb 31.3 pg (27.0-32.0); Mean Corpuscular Volume 92.9 fL (80-94); Mean Platelet Vol. 10.3 fl (6.2-12.0); Monocyte# 0.65 X10^3/uL; Monocyte% 10.4 % (0-10); NRBC Flagged by Analyzer 0 % (0-5); Neutrophil # 3.43 X10^3/uL (2.7-7.7); Neutrophil % 54.7 % (47-70); Platelet Count 213 K/mm3 (150-450); RBC Distribution Width CV 12.4 % (11.6-14.6); RBC Distribution Width SD 42.8 fl (35.1-43.9); Red Blood Count 4.67 M/mm3 (4.6-6.2); White Blood Count 6.3 K/mm3 (4.4-11.0)
[2019-12-22 12:58] LABS: Vitamin D,25 Hydroxy 49.8 ng/mL
[2019-12-22 13:10] LABS: AST(SGOT) 22 U/L (15-37); Alanine Aminotransfer ALT/SGPT 29 U/L (16-61); Albumin, Serum 4.1 g/dL (3.2-5.0); Alkaline Phosphatase 47 U/L (45-117); Anion Gap 9 (5-15); BUN 14 mg/dL (7-18); BUN/Creat Ratio 13.6 RATIO (10-20); Calcium,Total 9.6 mg/dL (8.5-10.1); Chloride 104 mmol/L (98-107); Cholesterol 210 mg/dL (200); Creatinine, Serum 1.03 mg/dL (0.70-1.30); EST Glomerular Filtration Rate 76 mL/min (>60); Est Glom Filt Rate - Afr Amer 92 mL/min (>60); Glucose 93 mg/dL (74-106); High Density Lipoprotein 47 mg/dL; Potassium 4.3 mmol/L (3.5-5.1); Protein, Total 8.1 g/dL (6.4-8.2); Sodium Level 138 mmol/L (136-145); Triglycerides 137 mg/dL; Very Low Density Lipoprotein 27 mg/dL (5-40)
[2019-12-22 17:26] LABS: Color, Urine Yellow (Yellow); Glucose, Dipstick Normal (Normal); Ketone-Dipstick Negative (Negative); Leukocyte Esterase-Dipstick 25 /ul (Negative); Nitrite-Dipstick Negative (Negative); Occult Blood-Urine Negative /ul (Negative); Protein-Dipstick 15 mg/dl (Negative); Urine Bilirubin Dipstick Negative (Negative); Urine Clarity Clear (Clear); Urine Urobilinogen Normal (Normal)
[2019-12-22 18:00] LABS: Bacteria 1+ /hpf (None Seen); Mucous, Urine 3+ /hpf (<or=2+)
== END ==
PROVIDERS: PCP Family Medicine; Referring Provider Family Medicine; Visit Provider Family Medicine
DX: I51.3 Intracardiac thrombosis, not elsewhere classified (principal); E55.9 Vitamin D deficiency, unspecified; E78.5 Hyperlipidemia, unspecified; R73.02 Impaired glucose tolerance (oral)
CPT/HCPCS: 36415; 80053; 80061; 81001; 82306; 83036; 85025

== ENCOUNTER 2020-06-24 11:59 | Observation (INO) | payer MEDICARE, SELFPAY ==
[2018-10-09 19:44] VITALS: BMI 23.3
[2020-06-24] VITALS (10 sets, daily range): BP systolic 110–154; BP diastolic 64–95; PULSE 59–81; RESP 16–20; TEMP 36.3–36.6; O2SAT 95–100; BMI 26.9; BMI 26.6
--- NOTE | 2020-06-24 12:30 | RAD_ITS ---
STUDY: X-RAY CHEST REASON FOR EXAM: Male, 70 years old. Neuro deficit, acute, stroke suspected TECHNIQUE: Single frontal view of the chest. COMPARISON: September 25, 2018 FINDINGS: There is dual-chamber pacemaker device on the left. There is hyperinflation of the lungs consistent with chronic obstructive lung disease (COPD). There is right lower lung scarring or atelectasis. There is no demonstrated pleural abnormality. Sternal cerclage wires are present from a prior sternotomy. Normal mediastinum and kathleen. Normal visualized pulmonary arteries. Normal visualized aortic arch and descending thoracic aorta. Normal visualized thoracic spine. There is a healed right fifth rib fracture. There is no demonstrated abnormality of the visualized soft tissue structures of the upper abdomen. RAD/Chest 1 View IMPRESSION: Degenerative changes, as described above. No demonstrated acute cardiopulmonary process. Electronically Signed: Alen Pierce MD at 13:59 EDT , Service support ,
--- NOTE | 2020-06-24 12:30 | CT_ITS ---
STUDY: CT HEAD STROKE PROTOCOL W/O CONTRAST INJECTION REASON FOR EXAM: Male, 70 years old. Neuro deficit, acute, stroke suspected RADIATION DOSAGE (If Supplied By Facility): CTDIvol = ( ) mGy, DLP = ( ) mGycm TECHNIQUE: Transaxial CT imaging of the brain was performed without administration of intravenous contrast material. Individualized dose optimization techniques were used for this CT. COMPARISON: No relevant priors. FINDINGS: Normal size ventricles and extra-axial spaces for the patient''s age. Normal white matter tracts of the cerebral hemispheres. There is no intracranial hemorrhage. There are no findings of an acute ischemic infarction. Normal visualized paranasal sinuses. CT/STROKE Brain/Head without Cont IMPRESSION: No intracranial hemorrhage. N.B. : The above information has been verbally conveyed by Perry Harvey MD to Dr. Brenda MD, on 06/24/2020 13:16:31 (ET). Electronically Signed: Perry Harvey MD at 13:17 EDT Tel , Service support ,
--- NOTE | 2020-06-24 12:30 | EKG12_ITS ---
Test Reason : NEURO S/SX Blood Pressure : / mmHG Vent. Rate : 061 BPM Atrial Rate : 061 BPM P-R Int : 162 ms QRS Dur : 106 ms QT Int : 424 ms P-R-T Axes : 093 054 261 degrees QTc Int : 426 ms Atrial-paced rhythm Inferior infarct , age undetermined ST & T wave abnormality, consider lateral ischemia Abnormal ECG Confirmed by AISHA LANDRUM, SUMAN ([id number]), book editor CALOS CROW ([id number]) on 06/27/2020 8:53:30 AM Referred By: DAO Confirmed By:SUMAN LEONARD MD
--- NOTE | 2020-06-24 12:32 | ED.VISSUMM ---
- ER Visit Summary Date of Service: 06/24/20 Chief Complaint: Concern for TIA History of Present Illness: The patient is a 70 M presenting due to concern for TIA. Patient states he woke up this morning and around 9 AM he started to have lightheadedness and dizziness. He states he ambulated and was falling to one side. He states he lost his balance with 2 different episodes. He also complains of left hand and arm tingling which began around the same time. He denies weakness. Denies vision or speech changes. He called 911 when the symptoms began. He refused transport to the hospital. He called his primary care physician who advised him to come to the ED for further evaluation. Patient had Covid vaccine 1 week ago. Physical Examination: Vitals are stable. Patient is afebrile. Alert no acute distress. HEENT exam is unremarkable. Neck is supple. Lungs are clear and equal bilaterally. Heart is regular rate and rhythm. Abdomen is soft nontender nondistended. Extremities are unremarkable. Skin is warm and dry. NIH 1: Left arm paresthesia Remainder of exam is unremarkable. Emergency Department Course and Treatment: EKG is paced at rate of 61, similar to previous. CBC, chemistries unremarkable. Troponin is negative. CT head shows no acute process. Due to concern for TIA, patient was discussed with hospitalist for observation. Disposition: Observation Impression: TIA This note was generated with [employer] dictation software. It may contain incorrect words, spelling, and punctuation that were not noted in review of the chart prior to signing ED Disposition - Plan for ED Patient: Referrals: Jerel Caputo MD [Primary Care Provider] -
[2020-06-24 12:39] LABS: Absolute Lymphocyte Count 1.72 X10^3/uL (0.83-4.51); Absolute Neutrophil Count 3.4 X10^3/uL (2.0-7.7); Basophil# 0.03 X10^3/uL; Basophil% 0.5 % (0-1); Eosinophil# 0.12 X10^3/uL; Eosinophils% 2.1 % (0-5); Hematocrit 42.2 % (40-54); Hemoglobin 14.6 g/dL (13.0-16.5); Lymphocyte # 1.72 X10^3/ul (4.0); Lymphocyte % 29.7 % (19-41); Mean Corp Hgb Conc 34.6 g/dL (32-36); Mean Corpuscular Hgb 31.5 pg (27.0-32.0); Mean Corpuscular Volume 91.1 fL (80-94); Mean Platelet Vol. 9.7 fl (6.2-12.0); Monocyte# 0.55 X10^3/uL; Monocyte% 9.5 % (0-10); NRBC Flagged by Analyzer 0 % (0-5); Neutrophil # 3.36 X10^3/uL (2.7-7.7); Neutrophil % 57.9 % (47-70); Platelet Count 185 K/mm3 (150-450); RBC Distribution Width CV 12.2 % (11.6-14.6); RBC Distribution Width SD 40.5 fl (35.1-43.9); Red Blood Count 4.63 M/mm3 (4.6-6.2); White Blood Count 5.8 K/mm3 (4.4-11.0)
[2020-06-24 12:50] LABS: International Normalized Ratio 1.2; Prothrombin Time (Protime)PT. 15.1 SECONDS (11.7-14.9)
[2020-06-24 12:51] LABS: Partial Thromboplast Time 30.9 Seconds (24.1-36.2)
[2020-06-24 12:58] LABS: Anion Gap 5 (5-15); BUN 12 mg/dL (7-18); BUN/Creat Ratio 12.5 RATIO (10-20); Chloride 106 mmol/L (98-107); Creatinine, Serum 0.96 mg/dL (0.70-1.30); EST Glomerular Filtration Rate 83 mL/min (>60); Est Glom Filt Rate - Afr Amer 100 mL/min (>60); Estimated Creatinine Clearance 85.63 ml/min; Glucose 98 mg/dL (74-106); Potassium 4.4 mmol/L (3.5-5.1); Sodium Level 137 mmol/L (136-145)
[2020-06-24 13:50] LABS: Bedside Glucose 105 mg/dL (70-110)
--- NOTE | 2020-06-24 14:47 | CT_ITS ---
INDICATION: Left hand pain, imbalance, history of vascular disease EXAMINATION: CT BRAIN WITH CONTRAST TECHNIQUE: Noncontrast axial images were obtained of the brain. Subsequently, routine carotid CT angiogram protocol was performed without and with IV contrast. In addition, images were obtained of the [place]. [place] criteria using the distal ICAs for comparison were used for evaluation of stenoses. 3D reconstructions were reviewed. A radiation dose optimization technique was used for this scan. IV Contrast dosage and agent: COMPARISON: 06/24/2020 FINDINGS: --CT BRAIN: BRAIN PARENCHYMA: No intra- or extra-axial hemorrhage. No evidence of acute infarct. No intracranial mass or mass effect. There is preservation of the leslie/white matter interface. Posterior fossa structures are unremarkable. CSF SPACES: Appropriate for age. No hydrocephalus. Basal cisterns are patent. CALVARIUM, SKULL BASE, PARANASAL SINUSES AND MASTOID AIR CELLS: Clear. No discrete lytic or blastic abnormalities. ASPECTS Score for Acute Strokes: 10 --CTA NECK: AORTIC ARCH AND BRANCHES: Normal anatomy, patent. RIGHT CCA: No occlusion, significant stenosis or dissection. RIGHT ICA: No occlusion, significant stenosis or dissection. Minimal atherosclerosis. LEFT CCA: No occlusion, significant stenosis or dissection. Minimal atherosclerosis. LEFT ICA: No occlusion, significant stenosis or dissection. RIGHT VERTEBRAL ARTERY: No occlusion, significant stenosis or dissection. LEFT VERTEBRAL ARTERY: No occlusion, significant stenosis or dissection. NECK SOFT TISSUES: Cardiac conduction device is partially visualized. --CTA HEAD: --Anterior circulation: ICAs: No significant stenosis at the intracranial/visualized segments. ACAs: No significant stenosis at the visualized segments. ACOM: Present. MCAs: No significant stenosis at the visualized segments. --Posterior circulation: PCOMs: Not identified laundromat worker: No significant stenosis at the visualized segments. BASILAR ARTERY: No significant stenosis. VERTEBRAL ARTERIES: No significant stenosis at the intradural/visualized segments. Left vertebral artery is dominant. No evidence of intracranial aneurysm or vascular malformation. Sternotomy wires are present. CT/CTA Head AND Neck W/ Contrast IMPRESSION: 1. No large vessel occlusion or intracranial stenosis. No intracranial aneurysm. 2. Normal bilateral carotid arteries without stenosis or dissection. Electronically Signed: Gregg Calvillo MD ([place]) at 16:14 EDT , Service support ,
--- NOTE | 2020-06-24 15:07 | HP.PCM_ITS ---
Problem List (1) Presence of implantable cardioverter-defibrillator (ICD) Status: Chronic Comment: Implantation of a Medtronic Evera MRI XT DR MELO [id number] pulse generator; Leads Medtronic 6935M-62 Rt ventricular Lead and Medtronic 5076-52 Rt atrial Lead 04/05/19 @[facility] (2) COPD (chronic obstructive pulmonary disease) Status: Chronic (3) Bipolar disorder Status: Chronic (4) Coronary artery disease Status: Chronic (5) GERD (gastroesophageal reflux disease) Status: Chronic (6) Large cell lymphoma Status: Chronic (7) Atrial flutter Status: Chronic (8) Non-STEMI (non-ST elevated myocardial infarction) Status: Chronic (9) History of coronary artery bypass surgery Status: Chronic Comment: CABG x5- MASCORRO to LAD, bridge diagonal, JENNIFER to PDA, Right Radial artery to posterolateral CFX, bridge to lateral CFX 01/06/07 (10) Peripheral vascular disease Status: Chronic (11) Cardiomyopathy in disease classified elsewhere Status: Chronic History of Present Illness Date of Admission: 06/24/20 Chief Complaint: Dizziness, imbalance. The patient is a 70 year old M with past medical history as mentioned above presented to the emergency room because of dizziness and imbalance. This morning, he took his medications at around 9 AM and shortly after, he felt dizzy and lightheaded. He stood up, ambulated and he mentioned that he lost his balance and he was falling to the left side. He had 2 episodes of imbalance with tendency to fall to the left side. Also, he complained of numbness of the left hand which started around the same time. He denied focal weakness. He denied slurred speech or blurred vision. He contacted his PCP who advised him to come to the ED for evaluation. He had a history of CAD status post CABG and stents, has been on aspirin, Zetia, metoprolol, Entresto and Aldactone. He had a history of atrial flutter status post pacemaker and he has been on Eliquis. He has history of ischemic cardiomyopathy which has been stable and compensated and he has been on Aldactone, Entresto and metoprolol. In the emergency department, his vital signs were stable. His NIH stroke scale was 1. Symptoms of numbness and tingling of the left hand resolved. Routine blood work was unremarkable. EKG revealed paced rhythm, no acute changes. Troponin was negative. CT scan brain showed no acute infarct or hemorrhage. Chest x-ray showed no acute findings. He is being admitted for probable TIA for evaluation. Past Medical History Past Medical History (Chronic Problems): Chronic Problems (Last Updated 07/23/18 @ 15:37 by Aydee Evans) Presence of implantable cardioverter-defibrillator (ICD) (Chronic ~04/05/19) Implantation of a Medtronic Evera MRI XT DR MELO [id number] pulse generator; Leads Medtronic 6935M-62 Rt ventricular Lead and Medtronic 5076-52 Rt atrial Lead 04/05/19 [facility] COPD (chronic obstructive pulmonary disease) (Chronic) Bipolar disorder (Chronic) Coronary artery disease (Chronic) GERD (gastroesophageal reflux disease) (Chronic) 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Chronic) OCD (obsessive compulsive disorder) (Chronic) Panic disorder (Chronic) Tobacco abuse (Chronic) Atrial flutter (Chronic) Non-STEMI (non-ST elevated myocardial infarction) (Chronic) History of coronary artery bypass surgery (Chronic ~01/06/07) CABG x5- MASCORRO to LAD, bridge diagonal, JENNIFER to PDA, Right Radial artery to posterolateral CFX, bridge to lateral CFX 01/06/07 Presence of stent in coronary artery (Chronic ~12/07/13) PTCA/stent to the mid LAD, PTCA/stent prox LAD, and PTCA/stent to the distal LAD 12/07/13 Peripheral vascular disease (Chronic) Hyperlipemia (Chronic) Cardiomyopathy in disease classified elsewhere (Chronic) Atherosclerotic heart disease of [place] coronary artery without angina pectoris (Chronic) Type 2 diabetes mellitus (Chronic) Pre diabetic Medical History: Medical History (Last Updated 07/23/18 @ 15:37 by Aydee Evans) Non-STEMI (non-ST elevated myocardial infarction) (Chronic) I21.4 Peripheral vascular disease (Chronic) I73.9 Hyperlipemia (Chronic) E78.5 Cardiomyopathy in disease classified elsewhere (Chronic) I43 Atherosclerotic heart disease of [place] coronary artery without angina pectoris (Chronic) I25.10 Type 2 diabetes mellitus (Chronic) E11.9 Pre diabetic GERD (gastroesophageal reflux disease) K21.9 Ischemic cardiomyopathy I25.5 Large cell lymphoma C85.80 Panic disorder F41.0 Allergies bee venom protein (honey bee) Allergy (Verified 06/24/20 12:02) Anaphylaxis Home Medications: Ambulatory Orders Medication Instructions Recorded Cholecalciferol (Vitamin D3) 5,000 unit PO DAILY 09/25/18 [Vitamin D3] Aspirin 81 mg PO DAILY 10/09/18 Acetaminophen [Tylenol] 1,000 mg PO Q8H PRN PRN tab 10/16/18 Digoxin [Lanoxin] 125 mcg PO DAILY #30 tab 10/16/18 metoprolol succinate 25 mg 25 mg PO DAILY tab 03/11/19 tablet,extended release 24 hr spironolactone 25 mg tablet 25 mg PO DAILY 03/11/19 Apixaban [Eliquis] 5 mg PO BID 06/24/20 Ezetimibe [Zetia] 10 mg PO DAILY 06/24/20 Sacubitril/Valsartan 24/26 mg 1 each PO BID 06/24/20 [Entresto 24 mg-26 mg Tablet] Surgical History: Surgical History (Last Updated 04/06/19 @ 08:22 by Petty Triana) Presence of implantable cardioverter-defibrillator (ICD) (Chronic) Onset Date: ~04/05/19 Z95.810 Implantation of a [employer] Evera MRI XT DR MELO [id number] pulse generator; Leads Medtronic 6935M-62 Rt ventricular Lead and Medtronic 5076-52 Rt atrial Lead 04/05/19 @[facility] History of coronary artery bypass surgery (Chronic) Onset Date: ~01/06/07 Z95.1 CABG x5- MASCORRO to LAD, bridge diagonal, JENNIFER to PDA, Right Radial artery to posterolateral CFX, bridge to lateral CFX 01/06/07 Presence of stent in coronary artery (Chronic) Onset Date: ~12/07/13 Z95.5 PTCA/stent to the mid LAD, PTCA/stent prox LAD, and PTCA/stent to the distal LAD 12/07/13 S/P insertion of iliac artery stent Z95.828 History of nasal septoplasty Z98.890 Surgical History: angioplasty - Stent right iliac artery., coronary bypass surgery, - - Nasal septum, biopsy neck mass lymphoma. Smoking Status: Former smoker Alcohol: None Drugs: None - *Family History Maternal Family History: Family History (Last Reviewed 07/23/18 @ 15:39 by Aydee Evans) Father Diabetes History Items: Hypertension Paternal Family History: Family History (Last Reviewed 07/23/18 @ 15:39 by Aydee Evans) Father Diabetes History Items: Diabetes, Dementia, Hypertension, Stroke Review of Systems Constitutional: Denies: Anorexia, Chills, Fever, Weakness Eyes: Denies: Blurred vision, Double vision, Drainage, Redness HEENT: Denies: Difficulty Hearing, Ear Pain, Eye Pain, Nasal Congestion, Sore Throat Cardiovascular: Reports: Light Headedness. Denies: Chest Pain, Chest Pressure, Heaviness, Palpitations, Syncope Respiratory: Denies: Cough, Hemoptysis, Pleuritic Pain, Shortness of Breath, Sputum production, Wheezing Gastrointestinal: Denies: Abdominal Pain, Constipation, Diarrhea, Nausea, Vomiting Genitourinary: Denies: Dysuria, Frequency, Hematuria Musculoskeletal: Denies: Arm Pain, Back Pain, Foot Pain Skin: Denies: Dryness, Rash Neurological: Reports: Balance problems, Headaches, Numbness, Tingling. Denies: Double vision, Change in Speech, Slurred speech, Confusion, Focal weakness Psychiatric: Denies: Anxiety, Depression Endocrine: Denies: Change in Body Habitus, Polydipsia, Polyuria VTE Information - Inpt Only VTE Present on Admission: No VTE Mechan Device Prophylaxis: None VTE Pharm Prophylaxis ordered?: No - Physical Exam Vitals/I&O's: Vital Signs Temp Pulse Resp BP Pulse Ox 97.8 F 60 17 154/95 H 97 06/24/20 13:45 06/24/20 14:09 06/24/20 14:09 06/24/20 14:09 06/24/20 14:09 Oxygen Delivery Method Room Air Weight: 209 lb 10.554 oz Body Mass Index (BMI) 26.9 Finger Stick Blood Glucose 105 General: Alert, Oriented x3, Cooperative, No apparent distress HEENT: Atraumatic, PERRLA, EOMI, Normocephalic Oral: Moist Mucosa, No Gingival or Mucosal Lesions/ Ulcerations Neck: Supple, No JVD, Negative Carotid Bruits, Trachea Midline, Thyroid Normal Size and Texture Lungs: Clear to auscultation, Normal air movement, No rhonchi, No wheeze, No rales Cardiovascular: Regular rate, Regular Rhythm, Normal S1, Normal S2, PMI Normal Abdomen: Bowel Sounds Present, Soft, Non Tender, Non-Distended, No Hepato- splenomegaly Extremities: No clubbing, No cyanosis, No edema Skin: No rashes, No breakdown Lymphatic: No Cervical, Supraclavicular, or Inguinal Adenopathy Neurological: Cranial nerves II-XII grossly intact, Motor Exam 5/5 strength throughout Psych/Mental Status: Normal Affect, Appropriate, Alert and oriented to time, place, person, mood and affect Laboratory Results 06/24/20 12:30: WBC 5.8, RBC 4.63, Hgb 14.6, Hct 42.2, MCV 91.1, MCH 31.5, MCHC 34.6, RDW Std Deviation 40.5, RDW Coeff of Nevaeh 12.2, Plt Count 185, MPV 9.7, Immature Gran % (Auto) 0.300, Neut % (Auto) 57.9, Lymph % (Auto) 29.7, [place] % (Auto) 9.5, Eos % (Auto) 2.1, Baso % (Auto) 0.5, Absolute Neuts (auto) 3.4, Absolute Lymphs (auto) 1.72, Nucleated RBC % 0 06/24/20 12:30: PT 15.1 H, INR 1.2, APTT 30.9 06/24/20 12:30: Sodium 137, Potassium 4.4, Chloride 106, Carbon Dioxide 26.0, Anion Gap 5, BUN 12, Creatinine 0.96, Estim Creat Clear Calc 85.63, Est GFR (MDRD) Af Amer 100, Est GFR (MDRD) Non-Af 83, BUN/Creatinine Ratio 12.5, Glucose 98, Calcium 9.0, Troponin I < 0.015 06/24/20 13:47: POC Glucose 105 Clinical Impression(s) from Imaging Studies Brain CT 06/24/20 12:30 IMPRESSION: No intracranial hemorrhage. N.B. : The above information has been verbally conveyed by Perry Harvey MD to Dr. Brenda MD, on 06/24/2020 13:16:31 (ET). Electronically Signed: Perry Harvey MD at 13:17 EDT Tel , Service support , ADDENDUM: 06/24/20 1324 IMPRESSION: No intracranial hemorrhage. N.B. : The above information has been verbally conveyed by Perry Harvey MD to Dr. Brenda MD, on 06/24/2020 13:16:31 (ET). Electronically Signed: Perry Harvey MD at 13:17 EDT Tel , Service support , Chest X-Ray 06/24/20 12:30 IMPRESSION: Degenerative changes, as described above. No demonstrated acute cardiopulmonary process. Electronically Signed: Alen Pierce MD at 13:59 EDT , Service support , Current Medications Acetaminophen (Acetaminophen 325 Mg Tablet) 650 mg PO Q6H PRN PRN PRN Reason: Pain Score 1-10/Temp > 100.7 F Apixaban (Apixaban 5 Mg Tablet) 5 mg PO BID MICHAEL Aspirin (Aspirin 81 Mg Tab.Chew) 81 mg PO DAILY MICHAEL Atorvastatin Calcium (Atorvastatin Calcium 80 Mg Tablet) 80 mg PO QHS MICHAEL Digoxin (Digoxin 125 Mcg Tablet) 125 mcg PO DAILY MICHAEL Ezetimibe (Ezetimibe 10 Mg Tablet) [address] [facility] Sodium Chloride () 1,000 mls @ 60 mls/hr IV .[id number] [facility] Stop: 06/25/20 07:26 Sodium Chloride () 250 mls @ 15 mls/hr IV .[id number] PRN PRN Reason: Saline Flush Sodium Chloride () 250 mls @ 15 mls/hr IV .[id number] PRN PRN Reason: Additional IVPB Infusion Iopamidol (Contrast Allergy Safety Check) 0 ml IV X1 MICHAEL Metoprolol Succinate (Metoprolol(Xl)Succ 25 Mg Tablet) 25 mg PO DAILY MICHAEL Ondansetron HCl (Ondansetron 4 Mg/2 Ml Vial) 4 mg IV Q8H PRN PRN PRN Reason: NAUSEA/VOMITING Sacubitril/Valsartan (Sacubitril/Valsartan 24/26 Mg Tablet) 1 each PO BID MICHAEL Senna/Docusate Sodium (Senna/Docusate Sodium 1 Tablet) 2 tablet PO BID PRN PRN PRN Reason: Constipation Sodium Chloride (0.9% Saline Lock 10 Ml Syringe) 10 - 40 ml IV UD PRN PRN Reason: SALINE FLUSH Spironolactone (Spironolactone 25 Mg Tablet) 25 mg PO DAILY MICHAEL Zolpidem Tartrate (Zolpidem Tartrate 5 Mg Tablet) 5 mg PO QHS PRN PRN PRN Reason: INSOMNIA Assessment/Plan This is a 70 years old male patient presented to the emergency room because of dizziness, tendency to fall to the left side and left hand tingling and he is being admitted for possible TIA for evaluation. #1 dizziness/imbalance with tendency to fall to the left side/left hand paresthesia: NIH stroke scale upon arrival to ED was 1, patient was not a candidate for TPA. CT scan brain showed no acute findings. At this time, symptoms resolved. EKG reviewed, unremarkable. Troponin is normal. MRI brain cannot be done because patient has ICD/pacemaker and he was informed that it is not compatible with MRI. Plan: Admit to PCU for observation, cardiac monitoring, NIH stroke scale, continue aspirin and statins, start Lipitor, continue Zetia, CTA of the head and neck, 2D echocardiogram if patient agreed to stay until Friday, Tylenol as needed, Zofran as needed, gentle IV fluids for hydration, repeat BMP tomorrow morning. #2 CAD status post CABG and stents: Stable, EKG was unremarkable. Troponin was negative. Continue aspirin, Zetia, metoprolol, Entresto. #3 ischemic cardiomyopathy status post ICD: Clinically stable, compensated. No evidence of acute CHF. Continue aspirin, metoprolol, Entresto and Aldactone. #4 chronic atrial fibrillation/flutter: Status post pacemaker. Rate is controlled, continue digoxin and metoprolol for rate control, continue Eliquis. #5 hyperlipidemia: Continue Zetia, start Lipitor. #6 DVT prophylaxis: Continue Eliquis. This note was generated with [employer] dictation software. It may contain incorrect words, spelling, and punctuation that were not noted in checking the note before signing. OBSV E&M: 98535 Initial observation care L3
[2020-06-24] MEDS: 0.9% Saline Lock 10 ML Syringe IV (17:32)
[2020-06-24] MEDS: 0.9% Normal Saline 1,000 ML 60 ML IV (17:32)
[2020-06-24] MEDS: Acetaminophen 325 MG Tablet 650 MG PO (19:54)
[2020-06-24] MEDS: APIXABAN 5 MG TABLET PO (20:57)
[2020-06-24] MEDS: Ezetimibe 10 MG Tablet PO (20:57)
[2020-06-24] MEDS: SACUBITRIL/VALSARTAN 24/26 MG TABLET 1 EACH PO (20:57)
[2020-06-25] VITALS (8 sets, daily range): BP systolic 109–134; BP diastolic 64–74; PULSE 60–75; RESP 18; TEMP 36.3–36.9; O2SAT 98–100
[2020-06-25 07:04] LABS: Anion Gap 7 (5-15); BUN 13 mg/dL (7-18); BUN/Creat Ratio 16.1 RATIO (10-20); Calcium,Total 8.6 mg/dL (8.5-10.1); Chloride 109 mmol/L (98-107); Cholesterol 161 mg/dL (200); EST Glomerular Filtration Rate 101 mL/min (>60); Est Glom Filt Rate - Afr Amer 123 mL/min (>60); Estimated Creatinine Clearance 102.75 ml/min; Glucose 136 mg/dL (74-106); High Density Lipoprotein 35 mg/dL; Potassium 4.1 mmol/L (3.5-5.1); Sodium Level 139 mmol/L (136-145); Triglycerides 158 mg/dL; Very Low Density Lipoprotein 32 mg/dL (5-40)
[2020-06-25] MEDS: Digoxin 125 MCG Tablet PO (08:43)
[2020-06-25] MEDS: Metoprolol(XL)Succ 25 MG Tablet PO ×2 (08:44→08:45)
[2020-06-25] MEDS: APIXABAN 5 MG TABLET PO (08:44)
[2020-06-25] MEDS: Spironolactone 25 MG Tablet PO (08:45)
[2020-06-25] MEDS: Aspirin 81 MG TAB.CHEW PO (08:45)
[2020-06-25] MEDS: SACUBITRIL/VALSARTAN 24/26 MG TABLET 1 EACH PO (08:45)
--- NOTE | 2020-06-25 09:14 | DCINST_ITS ---
- Discharge Diagnoses Current Active Problems: Current Active and Chronic Problems (Last Updated 07/23/18 @ 15:37 by Aydee Evans) Presence of implantable cardioverter-defibrillator (ICD) (Chronic ~04/05/19) Implantation of a Medtronic Evera MRI XT DR MELO [id number] pulse generator; Leads Medtronic 6935M-62 Rt ventricular Lead and Medtronic 5076-52 Rt atrial Lead 04/05/19 @[facility] COPD (chronic obstructive pulmonary disease) (Chronic) Bipolar disorder (Chronic) Coronary artery disease (Chronic) GERD (gastroesophageal reflux disease) (Chronic) 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Chronic) Atrial flutter (Chronic) Non-STEMI (non-ST elevated myocardial infarction) (Chronic) History of coronary artery bypass surgery (Chronic ~01/06/07) CABG x5- MASCORRO to LAD, bridge diagonal, JENNIFER to PDA, Right Radial artery to posterolateral CFX, bridge to lateral CFX 01/06/07 Peripheral vascular disease (Chronic) Cardiomyopathy in disease classified elsewhere (Chronic) You will use the following diet at home:: Cardiac Your food should be the consistency of: Regular Discharge Activity: Return to Normal Activity Weight Bearing Status: Weight bearing as tolerated Call your doctor if you observe: Fever of 101 or Higher, Shortness of breath, Di zziness, Fainting spells, Chest pain, Increased palpitations (irregular heartbeat), Uncontrolled pain Allergies/Adverse Reactions: Allergies bee venom protein (honey bee) Allergy (Verified 06/24/20 12:02) Anaphylaxis Medications to take at Discharge Cholecalciferol (Vitamin D3) [Vitamin D3] 5,000 unit PO DAILY 09/25/18 Aspirin 81 mg PO DAILY 10/09/18 Acetaminophen [Tylenol] 1,000 mg PO Q8H PRN PRN tab 10/16/18 Digoxin [Lanoxin] 125 mcg PO DAILY #30 tab 10/16/18 metoprolol succinate 25 mg tablet,extended release 24 hr 25 mg PO DAILY tab 03/11/19 spironolactone 25 mg tablet 25 mg PO DAILY 03/11/19 Apixaban [Eliquis] 5 mg PO BID 06/24/20 Ezetimibe [Zetia] 10 mg PO DAILY 06/24/20 Sacubitril/Valsartan 24/26 mg [Entresto 24 mg-26 mg Tablet] 1 each PO BID 06/24/20 Primary Care Physician: Jerel Caputo MD [Primary Care Provider] - Please follow up with your Primary Care Physician in: 1 week. Test Results: Test results from this visit will be discussed in further detail at your follow- up appointment, if applicable.
--- NOTE | 2020-06-25 10:34 | DS.PCM_ITS ---
Discharge Date and Diagnosis Date of Admission: 06/24/20 Date of Discharge: 06/25/20 - Primary Discharge Diagnosis Acute Problems: Imbalance/left hand paresthesia, dizziness, possible TIA, acute stroke ruled out. - Secondary Discharge Diagnosis Chronic Problems: Chronic Problems (Last Updated 07/23/18 @ 15:37 by Aydee Evans) Presence of implantable cardioverter-defibrillator (ICD) (Chronic ~04/05/19) Implantation of a [employer]tronic Evera MRI XT DR MELO [id number] pulse generator; Leads Medtronic 6935M-62 Rt ventricular Lead and Medtronic 5076-52 Rt atrial Lead 04/05/19 @[facility] COPD (chronic obstructive pulmonary disease) (Chronic) Bipolar disorder (Chronic) Coronary artery disease (Chronic) GERD (gastroesophageal reflux disease) (Chronic) 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Chronic) OCD (obsessive compulsive disorder) (Chronic) Panic disorder (Chronic) Tobacco abuse (Chronic) Atrial flutter (Chronic) Non-STEMI (non-ST elevated myocardial infarction) (Chronic) History of coronary artery bypass surgery (Chronic ~01/06/07) CABG x5- MASCORRO to LAD, bridge diagonal, JENNIFER to PDA, Right Radial artery to posterolateral CFX, bridge to lateral CFX 01/06/07 Presence of stent in coronary artery (Chronic ~12/07/13) PTCA/stent to the mid LAD, PTCA/stent prox LAD, and PTCA/stent to the distal LAD 12/07/13 Peripheral vascular disease (Chronic) Hyperlipemia (Chronic) Cardiomyopathy in disease classified elsewhere (Chronic) Atherosclerotic heart disease of [place] coronary artery without angina pectoris (Chronic) Type 2 diabetes mellitus (Chronic) Pre diabetic Hospital Course and Treatment Imaging Results: Clinical Impression(s) from Imaging Studies Brain CT 06/24/20 12:30 IMPRESSION: No intracranial hemorrhage. N.B. : The above information has been verbally conveyed by Perry Harvey MD to Dr. Brenda MD, on 06/24/2020 13:16:31 (ET). Electronically Signed: Perry Harvey MD at 13:17 EDT Tel , Service support , ADDENDUM: 06/24/20 1324 IMPRESSION: No intracranial hemorrhage. N.B. : The above information has been verbally conveyed by Perry Harvey MD to Dr. Brenda MD, on 06/24/2020 13:16:31 (ET). Electronically Signed: Perry Harvey MD at 13:17 EDT Tel , Service support , Chest X-Ray 06/24/20 12:30 IMPRESSION: Degenerative changes, as described above. No demonstrated acute cardiopulmonary process. Electronically Signed: Alen Pierce MD at 13:59 EDT , Service support , Head/Neck CTA 06/24/20 14:47 IMPRESSION: 1. No large vessel occlusion or intracranial stenosis. No intracranial aneurysm. 2. Normal bilateral carotid arteries without stenosis or dissection. Electronically Signed: Gregg Calvillo MD ([place]) at 16:14 EDT , Service support , Operations: None Procedures: EKG Summary of Care Provided: Patient seen and examined on the day of discharge and appeared to be stable to be discharged home. He has no more symptoms. He has been ambulating to the bathroom and he has no more dizziness or tendency to fall to the left side. Numbness of the left hand resolved. No other complaints. Vital signs are stable. The patient is a 70 year old M presented to the emergency room because of dizziness, imbalance 1 tendency to fall to the left side and left hand paresthesia and he was admitted for possible TIA. He was not a candidate for TPA. Initial CT scan brain showed no acute findings. EKG revealed paced rhythm, no acute findings. His troponin was negative. Patient was already on aspirin and Eliquis as well as CTA, started on Lipitor after admission. His vital signs were stable. Patient had ICD/pacemaker and MRI cannot be done. After admission, his symptoms resolved. He had no new symptoms suspicious for stroke. CTA of the of the neck done and showed no acute infarct or hemorrhage, no hemodynamically significant vascular disease or stenosis of the head or neck. He was monitored for 24 hours, symptoms resolved shortly after admission. He had no recurrence of symptoms and he had no new symptoms. 2D echocardiogram ordered but because it is weekend, it cannot be done. There was no urgent indication to do the 2D echocardiogram at this time. Acute stroke ruled out. Patient was already on aspirin and Eliquis as well as Zetia. Patient has 2D echocardiogram scheduled at [facility] on July 12, 2020. Patient was informed that he can do his echocardiogram at scheduled time, no need for urgent echocardiogram. Patient discharged home in a stable medical condition, discharged on his same previous home medication including Eliquis and aspirin as well as Zetia, recommended follow-up with PCP in 1 week. - Physical Exam Vitals/I&O's: Vital Signs Temp Pulse Resp BP Pulse Ox 97.9 F 67 18 122/74 H 99 06/25/20 08:00 06/25/20 08:45 06/25/20 08:00 06/25/20 08:00 06/25/20 08:00 Oxygen Delivery Method Room Air Weight: 207 lb 14.334 oz Body Mass Index (BMI) 26.6 Finger Stick Blood Glucose 105 Intake and Output for Last 24 Hours 06/23/20 06/24/20 06/25/20 23:59 23:59 23:59 Intake Total 240 / 720 1479 / 1479 Balance 240 / 720 1479 / 1479 General: Alert, Oriented x3, Cooperative, No apparent distress HEENT: Atraumatic, PERRLA, EOMI, Normocephalic Oral: Moist Mucosa, No Gingival or Mucosal Lesions/ Ulcerations Neck: Supple, No JVD, Negative Carotid Bruits, Trachea Midline, Thyroid Normal Size and Texture Lungs: Clear to auscultation, Normal air movement, No rhonchi, No wheeze, No rales Cardiovascular: Regular rate, Regular Rhythm, Normal S1, Normal S2, PMI Normal Abdomen: Bowel Sounds Present, Soft, Non Tender, Non-Distended, No Hepato-splenomegaly Extremities: No clubbing, No cyanosis, No edema Skin: No rashes, No breakdown Lymphatic: No Cervical, Supraclavicular, or Inguinal Adenopathy Neurological: Cranial nerves II-XII grossly intact, Motor Exam 5/5 strength throughout, Sensory exam intact to light touch and pain Psych/Mental Status: Normal Affect, Appropriate Laboratory Results 06/24/20 12:30: WBC 5.8, RBC 4.63, Hgb 14.6, Hct 42.2, MCV 91.1, MCH 31.5, MCHC 34.6, RDW Std Deviation 40.5, RDW Coeff of Nevaeh 12.2, Plt Count 185, MPV 9.7, Immature Gran % (Auto) 0.300, Neut % (Auto) 57.9, Lymph % (Auto) 29.7, [place] % (Auto) 9.5, Eos % (Auto) 2.1, Baso % (Auto) 0.5, Absolute Neuts (auto) 3.4, Absolute Lymphs (auto) 1.72, Nucleated RBC % 0 06/24/20 12:30: PT 15.1 H, INR 1.2, APTT 30.9 06/24/20 12:30: Sodium 137, Potassium 4.4, Chloride 106, Carbon Dioxide 26.0, Anion Gap 5, BUN 12, Creatinine 0.96, Estim Creat Clear Calc 85.63, Est GFR (MDRD) Af Amer 100, Est GFR (MDRD) Non-Af 83, BUN/Creatinine Ratio 12.5, Glucose 98, Calcium 9.0, Troponin I < 0.015 06/24/20 13:47: POC Glucose 105 06/25/20 05:45: Sodium 139, Potassium 4.1, Chloride 109 H, Carbon Dioxide 23.0, Anion Gap 7, BUN 13, Creatinine 0.80, Estim Creat Clear Calc 102.75, Est GFR (MDRD) Af Amer 123, Est GFR (MDRD) Non-Af 101, BUN/Creatinine Ratio 16.1, Glucose 136 H, Calcium 8.6, Triglycerides 158, Cholesterol 161, LDL Cholesterol 94, VLDL Cholesterol 32, HDL Cholesterol 35 L Discharge Activity: Return to Normal Activity Weight Bearing Status: Weight bearing as tolerated Call your doctor if you observe: Fever of 101 or Higher, Shortness of breath, Dizziness, Fainting spells, Chest pain, Increased palpitations (irregular heartbeat), Uncontrolled pain Home Medications: Medications to take at Discharge Cholecalciferol (Vitamin D3) [Vitamin D3] 5,000 unit PO DAILY 09/25/18 Aspirin 81 mg PO DAILY 10/09/18 Acetaminophen [Tylenol] 1,000 mg PO Q8H PRN PRN tab 10/16/18 Digoxin [Lanoxin] 125 mcg PO DAILY #30 tab 10/16/18 metoprolol succinate 25 mg tablet,extended release 24 hr 25 mg PO DAILY tab 03/11/19 spironolactone 25 mg tablet 25 mg PO DAILY 03/11/19 Apixaban [Eliquis] 5 mg PO BID 06/24/20 Ezetimibe [Zetia] 10 mg PO DAILY 06/24/20 Sacubitril/Valsartan 24/26 mg [Entresto 24 mg-26 mg Tablet] 1 each PO BID 06/24/20 Primary Care Physician: Jerel Caputo MD [Primary Care Provider] - Please follow up with your Primary Care Physician in: 1 week. Disposition: Home Minutes spent on discharge:: 27 Patient Condition:: Stable Medical Necessity - Tobacco Use Smoking Status: Former smoker Tobacco Use: Cigarettes Meaningful Use Info Meaningful Use Diagnoses (Choose all that apply): None applicable OBSV E&M: 32117 Observation care discharge
== END 2020-06-25 09:15 | disposition home or self-care (01) ==
LOC: ED 12:44 → PCU 13:47
PROVIDERS: Admitting Provider Hospitalist; Emergency Provider Emergency Medicine; PCP Family Medicine; Visit Provider Hospitalist
DX: R26.89 Other abnormalities of gait and mobility (principal); R42 Dizziness and giddiness; J44.9 Chronic obstructive pulmonary disease, unspecified; F31.9 Bipolar disorder, unspecified; K21.9 Gastro-esophageal reflux disease without esophagitis; I25.10 Atherosclerotic heart disease of native coronary artery without angina pectoris; I48.92 Unspecified atrial flutter; I25.2 Old myocardial infarction; F42.9 Obsessive-compulsive disorder, unspecified; E78.5 Hyperlipidemia, unspecified; R20.2 Paresthesia of skin; F41.0 Panic disorder [episodic paroxysmal anxiety]; C85.80 Other specified types of non-Hodgkin lymphoma, unspecified site; E11.51 Type 2 diabetes mellitus with diabetic peripheral angiopathy without gangrene; R29.6 Repeated falls; I25.5 Ischemic cardiomyopathy; R29.701 NIHSS score 1; I48.20 Chronic atrial fibrillation, unspecified; Z79.899 Other long term (current) drug therapy; Z95.1 Presence of aortocoronary bypass graft; Z79.82 Long term (current) use of aspirin; Z79.01 Long term (current) use of anticoagulants; Z95.810 Presence of automatic (implantable) cardiac defibrillator; Z87.891 Personal history of nicotine dependence
CPT/HCPCS: 36415; 70450; 70496; 70498; 71045; 80048; 80061; 82962; 84484; 85025; 85610; 85730; 93005; 99218; 99251; 99285; J7030; Q9967; A4216; G0378; G0463

== ENCOUNTER → 2020-07-04 11:46 | Outpatient (CLI) | payer MEDICARE, SELFPAY ==
[2020-06-24 15:42] VITALS: BMI 26.6
[2020-07-04 15:49] LABS: AST(SGOT) 29 U/L (15-37); Alanine Aminotransfer ALT/SGPT 44 U/L (16-61); Albumin, Serum 4.3 g/dL (3.2-5.0); Alkaline Phosphatase 48 U/L (45-117); Anion Gap 6 (5-15); BUN 18 mg/dL (7-18); Calcium,Total 9.9 mg/dL (8.5-10.1); Chloride 106 mmol/L (98-107); Creatinine, Serum 0.95 mg/dL (0.70-1.30); EST Glomerular Filtration Rate 84 mL/min (>60); Est Glom Filt Rate - Afr Amer 102 mL/min (>60); Globulin 4.1 g/dL (2.2-4.2); Glucose 100 mg/dL (74-106); Potassium 4.3 mmol/L (3.5-5.1); Protein, Total 8.4 g/dL (6.4-8.2); Sodium Level 136 mmol/L (136-145); Vitamin D,25 Hydroxy 33.2 ng/mL
[2020-07-04 15:55] LABS: Hemoglobin A1c 5.8 % (3.8-5.6)
== END ==
PROVIDERS: PCP Family Medicine; Referring Provider Family Medicine; Visit Provider Family Medicine
DX: I25.10 Atherosclerotic heart disease of native coronary artery without angina pectoris (principal); E55.9 Vitamin D deficiency, unspecified; R73.02 Impaired glucose tolerance (oral)
CPT/HCPCS: 36415; 80053; 82306; 83036

== ENCOUNTER → 2020-07-13 17:39 | Outpatient (CLI) | payer MEDICARE, SELFPAY ==
[2020-06-24 15:42] VITALS: BMI 26.6
--- NOTE | 2020-07-13 17:44 | CT_ITS ---
INDICATION: HEMOPTYSIS EXAMINATION: CT Chest W/O Contrast Injection TECHNIQUE: Helically acquired images were obtained of the chest without IV contrast. A radiation dose optimization technique was used for this scan. COMPARISON: None. FINDINGS: Lungs: Scarring/atelectasis in the bilateral lower lobes. Mediastinum: The cardiomediastinal silhouette is not enlarged. No mediastinal, hilar or axillary adenopathy. Moderate aortic arch and coronary artery calcifications. Left-sided cardiac device. Median sternotomy wires. Pleura: Unremarkable Bones/Soft tissues: Mild scattered degenerative changes of the visualized spine. Upper abdomen: No visualized abnormalities in the upper abdomen. CT/Chest without Contrast IMPRESSION: No acute abnormalities in the chest. Scarring/atelectasis in the bilateral lower lobes. Electronically Signed: Uche Hughes MD at 22:07 EDT Tel , Service support ,
== END ==
PROVIDERS: PCP Family Medicine; Referring Provider Family Medicine; Visit Provider Family Medicine
DX: R04.2 Hemoptysis (principal)
CPT/HCPCS: 71250

== ENCOUNTER 2020-08-28 19:42 | Emergency (ER) | payer MEDICARE, SELFPAY ==
[2020-06-24 15:42] VITALS: BMI 26.6
[2020-08-28 19:43] VITALS: BP 159/75; PULSE 50; RESP 14; RESP 20; TEMP 36.6; O2SAT 97; BMI 26.2
--- NOTE | 2020-08-28 19:54 | CM.ED ---
SOCIAL WORK Patient sent in by Crisis per PD. Call to Crisis, spoke with Angela. Crisis to evaluate patient once medically cleared. Staff tashia. Bree Nelson, FERRYBOAT OPERATOR HELPER, BUFFET RUNNER
--- NOTE | 2020-08-28 20:12 | EKG12_ITS ---
Test Reason : Blood Pressure : / mmHG Vent. Rate : 080 BPM Atrial Rate : 080 BPM P-R Int : 190 ms QRS Dur : 110 ms QT Int : 362 ms P-R-T Axes : 038 044 -64 degrees QTc Int : 417 ms Normal sinus rhythm Inferior infarct , age undetermined Nonspecific ST-Segment Abnormality Abnormal ECG Confirmed by ORESTES LANDRUM, JACY ([id number]), research editor CALOS CROW ([id number]) on 08/30/2020 9:41:30 AM Referred By: MIAN Confirmed By:JACY CARLISLE MD
--- NOTE | 2020-08-28 20:13 | EX.ED.VIS.PS ---
HPI HPI - Psych History of Present Illness Chief Complaint: Mental Health Narrative Narrative: Patient presents with acute psychosis. Police escorted him to the emergency department and he was pink slipped by the police department. He has a history of bipolar disorder he tells me he has not taken medications in a few years. He was found arguing with his mother being tangential and having flight of ideas. [facility] Medical History (Updated 08/28/20 @ 23:[address] Juaquin Baltazar MD) Atherosclerotic heart disease of [place] coronary artery without angina pectoris Cardiomyopathy in disease classified elsewhere GERD (gastroesophageal reflux disease) Hyperlipemia Ischemic cardiomyopathy Large cell lymphoma Non-STEMI (non-ST elevated myocardial infarction) Panic disorder Peripheral vascular disease Type 2 diabetes mellitus Home Medications cholecalciferol (vitamin D3) 2,000 unit PO DAILY 09/25/18 [History Last Taken 09/23/18] aspirin 81 mg PO DAILY 10/09/18 [History Last Taken Unknown] acetaminophen 1,000 mg PO Q8H PRN PRN tab 10/16/18 [Rx Last Taken Unknown] metoprolol succinate 25 mg tablet,extended release 24 hr 25 mg PO DAILY tab 03/11/19 [History Last Taken Unknown] spironolactone 25 mg tablet 25 mg PO DAILY 03/11/19 [History Last Taken Unknown] apixaban 5 mg PO BID 06/24/20 [History Last Taken Unknown] ezetimibe 10 mg PO DAILY 06/24/20 [History Last Taken Unknown] sacubitril-valsartan 1 each PO BID 06/24/20 [History Last Taken Unknown] bempedoic acid [Nexletol] 180 mg PO QHS 08/28/20 [History Last Taken Unknown] digoxin 250 mcg PO DAILY 08/28/20 [History Last Taken Unknown] Allergy/AdvReac Type Severity Reaction Status Date / Time bee venom protein (honey bee) Allergy Anaphylaxis Verified 06/24/20 12:02 Family History Father Diabetes Surgical History History of coronary artery bypass surgery (~01/06/07) History of nasal septoplasty Presence of implantable cardioverter-defibrillator (ICD) (~04/05/19) Presence of stent in coronary artery (~12/07/13) S/P insertion of iliac artery stent Social History (Updated 07/23/18 @ 17:[address] Juaquin Bates MD) Smoking Status: Former smoker how long ago did patient quit smokin years ago alcohol intake: never substance use type: does not use caffeine: No ROS ROS ED ROS Narrative Past medical history: Reviewed, includes hypertension hypercholesterolemia PE and heart disease. Medications: Reviewed, includes digoxin and Eliquis Social history: Noncontributory Review of systems: All systems negative except as indicated General: No fever Eyes: No visual changes ENT: No upper airway congestion, normal voice Neck: No neck pain Cardiovascular: No chest pain Respiratory: No shortness of breath or cough Gastrointestinal: No abdominal pain, nausea vomiting or diarrhea Genitourinary: No dysuria Musculoskeletal: Denies myalgias no difficulty with ambulation Skin: No rash Neurological: No memory loss, confusion or any focal weakness Psych: Behavioral changes as in HPI Hematologic: No easy bleeding or easy bruising EXAM Physical Exam Narrative Exam Narrative: Physical exam General: Well nourished, Well developed, No Acute Distress Head: Normocephalic, Atraumatic Eyes: Conjunctiva not pale ENT: Moist mucous membranes Neck: Supple, Nontender, No lymphadenopathy Cardiovascular: Regular rate, Regular rhythm Respiratory: No distress, CTA bilaterally Abdomen: Soft, Nontender, Nondistended Back: Nontender, Normal Inspection. Negative for: CVA tenderness Extremities: Nontender, No edema Skin: Normal color, No rash Neurological: Alert, Normal Strength, Normal Sensation Psychological: Patient has flight of ideas, tangential thoughts, pressured speech. He has no suicidal ideations. Const Vital Signs: 08/28/20 19:43 08/28/20 20:43 08/28/20 21:00 Temperature 98 F Temperature Source Oral Pulse Rate 50 L Respiratory Rate 14 15 16 Blood Pressure 159/75 H Blood Pressure Mean 103 Pulse Ox 97 Oxygen Delivery Method Room Air MDM MDM MDM Narrative Medical decision making narrative: Patient will be medically cleared, I will call the psychiatric liaison disposition. He was pink slipped by the police department. Patient was accepted at [facility]. Lab Data Labs: Laboratory Results - last 24 hr 08/28/20 08/28/20 08/28/20 20:20 20:20 20:20 WBC 8.0 RBC 4.52 L Hgb 14.0 Hct 41.7 MCV 92.3 MCH 31.0 MCHC 33.6 RDW Std Deviation 42.6 RDW Coeff of Nevaeh 12.5 Plt Count 206 MPV 9.7 Immature Gran % (Auto) 0.400 Neut % (Auto) 70.8 H Lymph % (Auto) 17.3 L [place] % (Auto) 9.5 Eos % (Auto) 1.5 Baso % (Auto) 0.5 Absolute Neuts (auto) 5.7 Absolute Lymphs (auto) 1.38 Nucleated RBC % 0 Sodium 135 L Potassium 3.9 Chloride 103 Carbon Dioxide 25.0 Anion Gap 7 BUN 14 Creatinine 1.16 Estim Creat Clear Calc 70.86 Est GFR (MDRD) Af Amer 80 Est GFR (MDRD) Non-Af 66 BUN/Creatinine Ratio 12.1 Glucose 91 Calcium 9.7 Urine Color Urine Clarity Urine pH Ur Specific [place] Urine Protein Urine Glucose (UA) Urine Ketones Urine Occult Blood Urine Nitrite Urine Bilirubin Urine Urobilinogen Ur Leukocyte Esterase Urine RBC Urine WBC Ur Squamous Epith Cells Urine Bacteria Urine Mucus Digoxin Urine Opiates Screen Urine Methadone Screen Ur Barbiturates Screen Ur Phencyclidine Scrn Ur Amphetamines Screen U Methamphetamin-MDMA U Benzodiazepines Scrn Urine Cocaine Screen U Cannabinoids Screen Ur Drug Screen Comment Ethyl Alcohol < 3.0 08/28/20 08/28/20 08/28/20 20:20 20:45 20:45 WBC RBC Hgb Hct MCV MCH MCHC RDW Std Deviation RDW Coeff of Nevaeh Plt Count MPV Immature Gran % (Auto) Neut % (Auto) Lymph % (Auto) [place] % (Auto) Eos % (Auto) Baso % (Auto) Absolute Neuts (auto) Absolute Lymphs (auto) Nucleated RBC % Sodium Potassium Chloride Carbon Dioxide Anion Gap BUN Creatinine Estim Creat Clear Calc Est GFR (MDRD) Af Amer Est GFR (MDRD) Non-Af BUN/Creatinine Ratio Glucose Calcium Urine Color Yellow Urine Clarity Clear Urine pH 6.0 Ur Specific [place] 1.020 Urine Protein Negative Urine Glucose (UA) Normal Urine Ketones Negative Urine Occult Blood Negative Urine Nitrite Negative Urine Bilirubin Negative Urine Urobilinogen Normal Ur Leukocyte Esterase Negative Urine RBC 0 SEEN Urine WBC 0 SEEN Ur Squamous Epith Cells 0 SEEN Urine Bacteria 0 SEEN Urine Mucus 0 SEEN Digoxin 1.00 Urine Opiates Screen NEGATIVE Urine Methadone Screen NEGATIVE Ur Barbiturates Screen NEGATIVE Ur Phencyclidine Scrn NEGATIVE Ur Amphetamines Screen NEGATIVE U Methamphetamin-MDMA NEGATIVE U Benzodiazepines Scrn NEGATIVE Urine Cocaine Screen NEGATIVE U Cannabinoids Screen NEGATIVE Ur Drug Screen Comment Ethyl Alcohol Discharge Plan Triage Chief Complaint: Mental Health ED Provider: Juaquin Baltazar Dx/Rx/DC Orders Clinical Impression: Manic episode Prescriptions: No Action cholecalciferol (vitamin D3) 5,000 UNIT capsule 2,000 unit PO DAILY RF: 0 aspirin 81 MG tablet,chewable 81 mg PO DAILY RF: 0 acetaminophen 500 MG tablet 1,000 mg PO Q8H PRN PRN (Reason: Mild Pain (-06/14)) RF: 0 ezetimibe 10 MG tablet 10 mg PO DAILY RF: 0 apixaban 5 MG tablet 5 mg PO BID RF: 0 sacubitril-valsartan 1 EACH tablet 1 each PO BID RF: 0 Nexletol 180 mg tablet 180 mg PO QHS RF: 0 digoxin 125 MCG tablet 250 mcg PO DAILY RF: 0 metoprolol succinate 25 mg tablet extended release 24 hr 25 mg PO DAILY RF: 0 spironolactone 25 mg tablet 25 mg PO DAILY RF: 0 Primary Care Provider: Jerel Caputo Referrals: Jerel Caputo MD [Primary Care Provider] - Disposition Disposition: Acute Care Hospital
--- NOTE | 2020-08-28 20:18 | CM.ED ---
SOCIAL WORK Received call from patient's daughter, Marah Mercado [phone] requesting referral to [facility]. Marah reports patient's niece, Donovan Patel works at [facility] and reports referral can be called to [phone] and faxed to [phone]. Call to Crisis to update, spoke with Angela. Per Angela, Crisis normally does not get people accepted to [facility] and it has to be hospital to hospital. Staff updated. This worker to assist as needed until end of shift at 10:30p. D. Leslie, TELEGRAPHIC TYPEWRITER OPERATOR CHIEF, SAP GATHERER
[2020-08-28 20:34] LABS: Absolute Lymphocyte Count 1.38 X10^3/uL (0.83-4.51); Absolute Neutrophil Count 5.7 X10^3/uL (2.0-7.7); Basophil# 0.04 X10^3/uL; Basophil% 0.5 % (0-1); Eosinophil# 0.12 X10^3/uL; Eosinophils% 1.5 % (0-5); Hematocrit 41.7 % (40-54); Lymphocyte # 1.38 X10^3/ul (0.83-4.51); Lymphocyte % 17.3 % (19-41); Mean Corp Hgb Conc 33.6 g/dL (32-36); Mean Corpuscular Volume 92.3 fL (80-94); Mean Platelet Vol. 9.7 fl (6.2-12.0); Monocyte# 0.76 X10^3/uL; Monocyte% 9.5 % (0-10); NRBC Flagged by Analyzer 0 % (0-5); Neutrophil # 5.65 X10^3/uL (2.7-7.7); Neutrophil % 70.8 % (47-70); Platelet Count 206 K/mm3 (150-450); RBC Distribution Width CV 12.5 % (11.6-14.6); RBC Distribution Width SD 42.6 fl (35.1-43.9); Red Blood Count 4.52 M/mm3 (4.6-6.2)
[2020-08-28 20:43] VITALS: RESP 15
[2020-08-28 20:44] LABS: Anion Gap 7 (5-15); BUN 14 mg/dL (7-18); BUN/Creat Ratio 12.1 RATIO (10-20); Calcium,Total 9.7 mg/dL (8.5-10.1); Chloride 103 mmol/L (98-107); Creatinine, Serum 1.16 mg/dL (0.70-1.30); EST Glomerular Filtration Rate 66 mL/min (>60); Est Glom Filt Rate - Afr Amer 80 mL/min (>60); Estimated Creatinine Clearance 70.86 ml/min; Glucose 91 mg/dL (74-106); Potassium 3.9 mmol/L (3.5-5.1); Sodium Level 135 mmol/L (136-145)
[2020-08-28 21:00] VITALS: RESP 16
[2020-08-28 21:12] LABS: Amphetamine Urine VISTA NEGATIVE (<1000 ng/mL); Barbiturate Urine VISTA NEGATIVE (< 200 ng/mL); Benzodiazepine Urine VISTA NEGATIVE (< 200 ng/mL); Cocaine Urine VISTA NEGATIVE (< 300 ng/mL); Ecstacy Urine VISTA NEGATIVE (< 500 ng/mL); Methadone Urine VISTA NEGATIVE (< 300 ng/mL); PCP Urine VISTA NEGATIVE (< 25 ng/mL); THC Urine VISTA NEGATIVE (< 50 ng/mL); Vista UDS pH Range 5
[2020-08-28 21:32] LABS: Alcohol, Blood (Medical)-Serum < 3.0 mg/dL
[2020-08-28 22:00] VITALS: RESP 15
[2020-08-28 22:14] LABS: Bacteria 0 SEEN /hpf (None Seen); Mucous, Urine 0 SEEN /hpf (<or=2+); Red Blood Cells-Urine 0 SEEN /hpf (0-5); Squamous Epithelial Cells - UA 0 SEEN /hpf (0-5); White Blood Cells 0 SEEN /hpf (0-5)
[2020-08-28 22:29] LABS: Color, Urine Yellow (Yellow); Glucose, Dipstick Normal (Normal); Ketone-Dipstick Negative (Negative); Leukocyte Esterase-Dipstick Negative /ul (Negative); Nitrite-Dipstick Negative (Negative); Occult Blood-Urine Negative /ul (Negative); Protein-Dipstick Negative (Negative); Urine Bilirubin Dipstick Negative (Negative); Urine Clarity Clear (Clear); Urine Urobilinogen Normal (Normal)
[2020-08-28 23:00] VITALS: RESP 15
--- NOTE | 2020-08-28 23:01 | ED.RN ---
[facility]
[2020-08-28 23:41] VITALS: BP 129/72; PULSE 81; RESP 17; O2SAT 99
--- NOTE | 2020-08-28 23:54 | ED.RN ---
daughter called and updated on admission and room assignment
== END 2020-08-29 00:18 | disposition short-term general hospital (02) ==
PROVIDERS: Emergency Provider Emergency Medicine; PCP Family Medicine
DX: F31.9 Bipolar disorder, unspecified (principal); I25.10 Atherosclerotic heart disease of native coronary artery without angina pectoris; I25.5 Ischemic cardiomyopathy; I25.2 Old myocardial infarction; I10 Essential (primary) hypertension; E78.00 Pure hypercholesterolemia, unspecified; E11.51 Type 2 diabetes mellitus with diabetic peripheral angiopathy without gangrene; Z79.01 Long term (current) use of anticoagulants; Z79.82 Long term (current) use of aspirin; Z79.899 Other long term (current) drug therapy; Z87.891 Personal history of nicotine dependence
CPT/HCPCS: 80048; 80162; 80307; 81001; 82077; 85025; 87426; 93005; 99285

== ENCOUNTER → 2020-12-26 16:44 | Outpatient (CLI) | payer MEDICARE, SELFPAY ==
[2020-12-26 18:05] LABS: Absolute Lymphocyte Count 1.84 X10^3/uL (0.83-4.51); Absolute Neutrophil Count 3.3 X10^3/uL (2.0-7.7); Basophil# 0.04 X10^3/uL; Basophil% 0.7 % (0-1); Eosinophil# 0.15 X10^3/uL; Eosinophils% 2.4 % (0-5); Hematocrit 39.6 % (40-54); Hemoglobin 13.1 g/dL (13.0-16.5); Lymphocyte # 1.84 X10^3/ul (0.83-4.51); Mean Corp Hgb Conc 33.1 g/dL (32-36); Mean Corpuscular Hgb 31.3 pg (27.0-32.0); Mean Corpuscular Volume 94.5 fL (80-94); Mean Platelet Vol. 10.6 fl (6.2-12.0); Monocyte# 0.82 X10^3/uL; Monocyte% 13.4 % (0-10); NRBC Flagged by Analyzer 0 % (0-5); Neutrophil # 3.25 X10^3/uL (2.7-7.7); Neutrophil % 52.8 % (47-70); Platelet Count 178 K/mm3 (150-450); RBC Distribution Width CV 13.2 % (11.6-14.6); RBC Distribution Width SD 45.8 fl (35.1-43.9); Red Blood Count 4.19 M/mm3 (4.6-6.2); White Blood Count 6.1 K/mm3 (4.4-11.0)
[2020-12-26 18:32] LABS: Hemoglobin A1c 5.7 % (3.8-5.6)
[2020-12-26 18:55] LABS: Vitamin D,25 Hydroxy 48.1 ng/mL
[2020-12-26 18:56] LABS: ALB/GLOB Ratio 0.8 RATIO (0.9-2.4); AST(SGOT) 30 U/L (15-37); Alanine Aminotransfer ALT/SGPT 43 U/L (16-61); Albumin, Serum 3.4 g/dL (3.2-5.0); Alkaline Phosphatase 50 U/L (45-117); Anion Gap 7 (5-15); BUN 20 mg/dL (7-18); BUN/Creat Ratio 21.4 RATIO (10-20); Calcium,Total 9.4 mg/dL (8.5-10.1); Chloride 104 mmol/L (98-107); Cholesterol 235 mg/dL (200); Creatinine, Serum 0.94 mg/dL (0.70-1.30); EST Glomerular Filtration Rate 85 mL/min (>60); Est Glom Filt Rate - Afr Amer 103 mL/min (>60); Globulin 4.2 g/dL (2.2-4.2); Glucose 94 mg/dL (74-106); High Density Lipoprotein 45 mg/dL; Magnesium 2.2 mg/dL (1.6-2.6); Potassium 3.9 mmol/L (3.5-5.1); Protein, Total 7.6 g/dL (6.4-8.2); Sodium Level 137 mmol/L (136-145); Triglycerides 235 mg/dL; Very Low Density Lipoprotein 47 mg/dL (5-40)
[2020-12-26 19:10] LABS: Digoxin Level 1.02 ng/mL (0.80-2.00)
== END ==
PROVIDERS: PCP Family Medicine; Referring Provider Family Medicine; Visit Provider Family Medicine
DX: I25.10 Atherosclerotic heart disease of native coronary artery without angina pectoris (principal); I50.22 Chronic systolic (congestive) heart failure; E78.5 Hyperlipidemia, unspecified; E55.9 Vitamin D deficiency, unspecified; R73.02 Impaired glucose tolerance (oral)
CPT/HCPCS: 36415; 80053; 80061; 80162; 82306; 83036; 83735; 85025

== ENCOUNTER → 2021-02-21 11:22 | Outpatient (CLI) | payer MEDICARE, SELFPAY ==
[2021-02-21 15:50] LABS: Cholesterol 183 mg/dL (200); High Density Lipoprotein 39 mg/dL; PSA,Total - Annual Screen 1.55 ng/mL (0.00-4.00); Triglycerides 119 mg/dL; Very Low Density Lipoprotein 24 mg/dL (5-40)
== END ==
PROVIDERS: PCP Family Medicine; Referring Provider Family Medicine; Visit Provider Family Medicine
DX: E78.5 Hyperlipidemia, unspecified (principal); Z12.5 Encounter for screening for malignant neoplasm of prostate
CPT/HCPCS: 36415; 80061; 84153; G0103

== ENCOUNTER 2021-04-04 21:44 | Emergency (ER) | payer MEDICARE, SELFPAY ==
[2021-04-04 22:08] VITALS: BP 162/95; PULSE 99; RESP 18; TEMP 36.4; O2SAT 100; BMI 27.6
--- NOTE | 2021-04-04 22:14 | EKG12_ITS ---
Test Reason : [facility] Blood Pressure : / mmHG Vent. Rate : 089 BPM Atrial Rate : 089 BPM P-R Int : 172 ms QRS Dur : 104 ms QT Int : 358 ms P-R-T Axes : 067 077 223 degrees QTc Int : 435 ms Sinus rhythm with Fusion complexes and Premature atrial complexes ST & T wave abnormality, consider lateral ischemia Abnormal ECG Confirmed by AISHA LANDRUM, SUMAN ([id number]), marketing editor JOSE HUANG ([id number]) on 04/11/2021 12:09:24 PM Referred By: INGE Confirmed By:SUMAN LEONARD MD
[2021-04-04 22:36] LABS: Absolute Lymphocyte Count 1.36 X10^3/uL (0.83-4.51); Absolute Neutrophil Count 5.5 X10^3/uL (2.0-7.7); Basophil# 0.05 X10^3/uL; Basophil% 0.7 % (0-1); Eosinophil# 0.15 X10^3/uL; Hematocrit 40.8 % (40-54); Hemoglobin 13.7 g/dL (13.0-16.5); Lymphocyte # 1.36 X10^3/ul (0.83-4.51); Lymphocyte % 17.7 % (19-41); Mean Corp Hgb Conc 33.6 g/dL (32-36); Mean Corpuscular Hgb 31.1 pg (27.0-32.0); Mean Corpuscular Volume 92.7 fL (80-94); Mean Platelet Vol. 9.9 fl (6.2-12.0); Monocyte# 0.54 X10^3/uL; NRBC Flagged by Analyzer 0 % (0-5); Neutrophil # 5.54 X10^3/uL (2.7-7.7); Neutrophil % 72.2 % (47-70); Platelet Count 238 K/mm3 (150-450); RBC Distribution Width CV 12.4 % (11.6-14.6); RBC Distribution Width SD 42.6 fl (35.1-43.9); White Blood Count 7.7 K/mm3 (4.4-11.0)
[2021-04-04 22:48] LABS: Anion Gap 5 (5-15); BUN 14 mg/dL (7-18); BUN/Creat Ratio 13.7 RATIO (10-20); Calcium,Total 9.2 mg/dL (8.5-10.1); Chloride 106 mmol/L (98-107); Creatinine, Serum 1.02 mg/dL (0.70-1.30); EST Glomerular Filtration Rate 77 mL/min (>60); Est Glom Filt Rate - Afr Amer 93 mL/min (>60); Estimated Creatinine Clearance 79.47 ml/min; Glucose 99 mg/dL (74-106); Potassium 4.3 mmol/L (3.5-5.1); Sodium Level 136 mmol/L (136-145)
[2021-04-04 22:57] LABS: Acetaminophen (Tylenol) Level < 2.0 ug/mL (10.0-30.0); Alcohol, Blood (Medical)-Serum < 3.0 mg/dL; Salicylate 1.9 mg/dL (2.8-20.0)
--- NOTE | 2021-04-04 23:00 | EDS_ITS ---
HPI History of Present Illness Chief Complaint: Mental Health Narrative Narrative: Patient is a 71-year-old male with past medical history of bipolar disorder. He was brought in by police under pink slip secondary to manic episodes and not taking his medication. They state he is a danger to himself and others as he has left the gas on in the basement stove. Also reportedly he has been talking about hurting others and believes that there is a government conspiracy going on which will be trying to control him and therefore with his bipolar christi he was sent in for evaluation. Upon arrival to the ER the patient has no complaints and denies suicidal ideation [facility] Medical History Atherosclerotic heart disease of [place] coronary artery without angina pectoris Cardiomyopathy in disease classified elsewhere GERD (gastroesophageal reflux disease) Hyperlipemia Ischemic cardiomyopathy Large cell lymphoma Non-STEMI (non-ST elevated myocardial infarction) Panic disorder Peripheral vascular disease Type 2 diabetes mellitus Home Medications cholecalciferol (vitamin D3) 2,000 unit PO DAILY 09/25/18 [History Last Taken 09/23/18] aspirin 81 mg PO DAILY 10/09/18 [History Last Taken Unknown] acetaminophen 1,000 mg PO Q8H PRN PRN tab 10/16/18 [Rx Last Taken Unknown] metoprolol succinate 25 mg tablet,extended release 24 hr 25 mg PO DAILY tab 03/11/19 [History Last Taken Unknown] spironolactone 25 mg tablet 25 mg PO DAILY 03/11/19 [History Last Taken Unknown] apixaban 5 mg PO BID 06/24/20 [History Last Taken Unknown] ezetimibe 10 mg PO DAILY 06/24/20 [History Last Taken Unknown] sacubitril-valsartan 1 each PO BID 06/24/20 [History Last Taken Unknown] bempedoic acid [Nexletol] 180 mg PO QHS 08/28/20 [History Last Taken Unknown] digoxin 250 mcg PO DAILY 08/28/20 [History Last Taken Unknown] Allergy/AdvReac Type Severity Reaction Status Date / Time bee venom protein (honey bee) Allergy Anaphylaxis Verified 06/24/20 12:02 Family History Father Diabetes Surgical History History of coronary artery bypass surgery (~01/06/07) History of nasal septoplasty Presence of implantable cardioverter-defibrillator (ICD) (~04/05/19) Presence of stent in coronary artery (~12/07/13) S/P insertion of iliac artery stent Social History (Updated 07/23/18 @ 17:[address] Juaquin Bates MD) Smoking Status: Former smoker how long ago did patient quit smokin years ago alcohol intake: never substance use type: does not use caffeine: No ROS ROS ED Constitutional Constitutional ED: Denies chills or fever(s) ENT ENT ED: Denies sore throat Cardiovascular Cardiovascular: Denies chest pain Respiratory/Chest Respiratory/Chest: Denies cough or dyspnea Gastrointestinal Gastrointestinal: Denies abdominal pain, diarrhea, nausea or vomiting Genitourinary Genitourinary ED: Denies dysuria Musculoskeletal Musculoskeletal: Denies myalgias Integumentary Denies rash Neurologic Neurologic: Denies headache(s) Psychiatric Psychiatric: Denies suicidal ideation or suicidal thoughts Hematologic/Lymphatic Hematologic/Lymphatic: Denies easy bleeding or easy bruising EXAM Physical Exam Const Vital Signs: 04/04/21 22:08 04/05/21 01:50 04/05/21 03:58 Temperature 97.5 F L Temperature Source Temporal Pulse Rate 99 79 Respiratory Rate 18 16 16 Blood Pressure 162/95 H 151/82 H Blood Pressure Mean 117 105 Pulse Ox 100 100 Oxygen Delivery Method Room Air Room Air 04/05/21 04:45 04/05/21 05:49 04/05/21 06:30 Temperature Temperature Source Pulse Rate Respiratory Rate 16 14 16 Blood Pressure Blood Pressure Mean Pulse Ox Oxygen Delivery Method Positive well nourished and well developed General Appearance ED: well developed HEENT Reports moist mucous membranes Eyes PERRL and EOMs intact bilaterally Neck supple Resp normal respiratory effort and clear to auscultation bilaterally Cardio regular rate and regular rhythm GI normal to inspection, nondistended, normoactive bowel sounds, non-tender, non- distended and no masses Auscultation: normoactive bowel sounds Palpation: soft Extremity normal to inspection Neuro oriented x3 and CN's II-XII intact bilaterally Sensorium / Orientation: alert Motor Exam: strength 5/5 throughout Psych Psych Narrative: Patient has a anxious/manic affect with flight of ideas and pressured speech. However no homicidal or suicidal ideation. He does exhibit paranoia as he does discuss that the entire government is out to control him ho wever he denies any auditory or visual hallucination Skin no rashes or lesions noted MDM MDM MDM Narrative Medical decision making narrative: Patient presented to the ER hypertensive but otherwise with stable vitals. He denied any homicidal or suicidal ideation but he is extremely manic with pressured speech and flight of ideas and paranoia. With the fact that the police report he left the stove on by accident and is not taking his medications he does indicate with these actions that he is a danger to himself and possibly others despite not having aggressive behavior or homicidal/suicidal ideation. Therefore elected to perform a basic psychiatric work-up. Laboratory studies revealed no clinically significant findings and EKG showed sinus rhythm. Covid test was also negative. Therefore he was medically cleared and evaluated by crisis center. They agree that with his paranoia and christi that he would benefit from placement and initiation of treatment. Therefore the patient will be placed in a psychiatric facility. From an emergen cy room standpoint the patient is medically cleared and he is safe for placement/transfer to a psychiatric facility. Lab Data Attestation: I reviewed the patient's lab results. Labs: Laboratory Results - last 24 hr 04/04/21 04/04/21 04/04/21 21:55 21:55 21:55 WBC 7.7 RBC 4.40 L Hgb 13.7 Hct 40.8 MCV 92.7 MCH 31.1 MCHC 33.6 RDW Std Deviation 42.6 RDW Coeff of Nevaeh 12.4 Plt Count 238 MPV 9.9 Immature Gran % (Auto) 0.400 Neut % (Auto) 72.2 H Lymph % (Auto) 17.7 L [place] % (Auto) 7.0 Eos % (Auto) 2.0 Baso % (Auto) 0.7 Absolute Neuts (auto) 5.5 Absolute Lymphs (auto) 1.36 Nucleated RBC % 0 Sodium 136 Potassium 4.3 Chloride 106 Carbon Dioxide 25.0 Anion Gap 5 BUN 14 Creatinine 1.02 Estim Creat Clear Calc 79.47 Est GFR (MDRD) Af Amer 93 Est GFR (MDRD) Non-Af 77 BUN/Creatinine Ratio 13.7 Glucose 99 Calcium 9.2 Salicylates 1.9 L Urine Opiates Screen Urine Methadone Screen Acetaminophen < 2.0 L Ur Barbiturates Screen Ur Phencyclidine Scrn Ur Amphetamines Screen U Methamphetamin-MDMA U Benzodiazepines Scrn Urine Cocaine Screen U Cannabinoids Screen Ur Drug Screen Comment Ethyl Alcohol < 3.0 04/04/21 22:56 WBC RBC Hgb Hct MCV MCH MCHC RDW Std Deviation RDW Coeff of Nevaeh Plt Count MPV Immature Gran % (Auto) Neut % (Auto) Lymph % (Auto) [place] % (Auto) Eos % (Auto) Baso % (Auto) Absolute Neuts (auto) Absolute Lymphs (auto) Nucleated RBC % Sodium Potassium Chloride Carbon Dioxide Anion Gap BUN Creatinine Estim Creat Clear Calc Est GFR (MDRD) Af Amer Est GFR (MDRD) Non-Af BUN/Creatinine Ratio Glucose Calcium Salicylates Urine Opiates Screen NEGATIVE Urine Methadone Screen NEGATIVE Acetaminophen Ur Barbiturates Screen NEGATIVE Ur Phencyclidine Scrn NEGATIVE Ur Amphetamines Screen NEGATIVE U Methamphetamin-MDMA NEGATIVE U Benzodiazepines Scrn NEGATIVE Urine Cocaine Screen NEGATIVE U Cannabinoids Screen NEGATIVE Ur Drug Screen Comment Ethyl Alcohol Discharge Plan Triage Chief Complaint: Mental Health ED Provider: Brent Alexandre Dx/Rx/DC Orders Clinical Impression: Bipolar I disorder with christi, Acute paranoia Prescriptions: No Action cholecalciferol (vitamin D3) 5,000 UNIT capsule 2,000 unit PO DAILY RF: 0 aspirin 81 MG tablet,chewable 81 mg PO DAILY RF: 0 acetaminophen 500 MG tablet 1,000 mg PO Q8H PRN PRN (Reason: Mild Pain (-06/14)) RF: 0 ezetimibe 10 MG tablet 10 mg PO DAILY RF: 0 apixaban 5 MG tablet 5 mg PO BID RF: 0 sacubitril-valsartan 1 EACH tablet 1 each PO BID RF: 0 Nexletol 180 mg tablet 180 mg PO QHS RF: 0 digoxin 125 MCG tablet 250 mcg PO DAILY RF: 0 metoprolol succinate 25 mg tablet extended release 24 hr 25 mg PO DAILY RF: 0 spironolactone 25 mg tablet 25 mg PO DAILY RF: 0 Primary Care Provider: Jerel Caputo Referrals: Jerel Caputo MD [Primary Care Provider] - Disposition Disposition: Psychiatric Hospital or Unit
[2021-04-05] VITALS (9 sets, daily range): BP systolic 148–159; BP diastolic 52–82; PULSE 79–80; RESP 14–18; O2SAT 96–100
[2021-04-05 00:12] LABS: Amphetamine Urine VISTA NEGATIVE (<1000 ng/mL); Barbiturate Urine VISTA NEGATIVE (< 200 ng/mL); Benzodiazepine Urine VISTA NEGATIVE (< 200 ng/mL); Cocaine Urine VISTA NEGATIVE (< 300 ng/mL); Ecstacy Urine VISTA NEGATIVE (< 500 ng/mL); Methadone Urine VISTA NEGATIVE (< 300 ng/mL); PCP Urine VISTA NEGATIVE (< 25 ng/mL); THC Urine VISTA NEGATIVE (< 50 ng/mL); Vista UDS pH Range 5
[2021-04-05] MEDS: LORazepam 1 MG Tablet 2 MG PO (04:01)
--- NOTE | 2021-04-05 07:10 | NURSING ---
[facility] CALLED; THEY ARE CURRENTLY REVIEWING HIS CHART. THEY DO HAVE MALE D/C'S TODAY.
--- NOTE | 2021-04-05 08:48 | CM.ED ---
DOMINIQUE Note DOMINIQUE reviewed chart and noted that patient had been referred to [facility] by Crisis Unit. DOMINIQUE called [facility] and spoke to Lindy, Crisis Counselor at Night. Lindy said that she will call and check on status of patient going to [facility] before she leaves today. DOMINIQUE called ED Desk and spoke to Valentina and advised that Lindy will call [facility] for update and then update [facility] ED staff. Plan: Placement Lacey MILLER
--- NOTE | 2021-04-05 09:31 | ED.RN ---
PT GETTING AGITATED THRTEATENING TO LEAVE. HRO AT BEDSIDE
--- NOTE | 2021-04-05 09:39 | CT_ITS ---
INDICATION: ALTERED MENTAL STATUS -- ROOM 4--MENTAL HEALTH EXAMINATION: CT BRAIN - CT Head or Brain W/O Contrast Injection TECHNIQUE: Multiple axial images were obtained of the head without intravenous contrast. A radiation dose optimization technique was used for this scan. IV Contrast dosage and agent: None. COMPARISON: 06/24/2020 FINDINGS: BRAIN PARENCHYMA: No intra- or extra-axial hemorrhage. No evidence of acute infarct. No intracranial mass or mass effect. There is preservation of the leslie/white matter interface. Low-lying cerebellar tonsils but no evidence of tonsillar herniation is seen. Posterior fossa structures are unremarkable. CSF SPACES: Appropriate for age. No hydrocephalus. Basal cisterns are patent. CALVARIUM, SKULL BASE: No discrete lytic or blastic abnormalities. PARANASAL SINUSES AND MASTOID AIR CELLS: Prominent circumferential opacification of the maxillary sinuses and the anterior ethmoid air cells. Incomplete evaluation of the frontal sinuses. ORBITS: Both globes, extraocular muscles, optic nerves and retrobulbar fat appear unremarkable. CT/Brain/Head without Contrast IMPRESSION: No evidence of acute intracranial pathology. Extensive mucosal disease visualized in the paranasal sinuses. Electronically Signed: Andrew Ureña MD at 10:20 EST Tel , Service support ,
[2021-04-05] MEDS: Ziprasidone IM 20 MG/ML VIAL IM (09:57)
--- NOTE | 2021-04-05 11:20 | CM.ED ---
DOMINIQUE Note DOMINIQUE called [facility]. Spoke to Estefania. They need CT scan but the provider has agreed to accept when CT is received. DOMINIQUE faxed CT scan to [facility]. DOMINIQUE also faxed pink slip to [facility]. Dominique called Elena at [facility]. They received the CT but not the pink slip. They will call back when they receive the pink slip. Plan: [place] Lacey MILLER
--- NOTE | 2021-04-05 12:25 | CM.ED ---
DOMINIQUE Note DOMINIQUE called Estefania At [facility]. Patient has been accepted at [facility]. RN to RN [phone]. Accepting MD is Zedar. Dorado, assistant corporate secretary scheduled transport and ambulance will be at [facility] in 30 minutes. KARLA Tenorio updated about patient's discharge. DOMINIQUE called Damion Mercado [phone] No answer . Left voice mail message. DOMINIQUE called Marah Rogelio, patients daughter and updated her regarding patient and that he is leaving the hospital for [facility]. Marah asked about patient being tested for dementia and SW encouraged her to speak to staff at [facility] and also consult with gerontologist. No further questions or concerns voiced. Plan: [facility] Lacey MILLER
== END 2021-04-05 13:11 ==
PROVIDERS: Emergency Provider Emergency Medicine; PCP Family Medicine
DX: F31.2 Bipolar disorder, current episode manic severe with psychotic features (principal); I25.10 Atherosclerotic heart disease of native coronary artery without angina pectoris; I25.2 Old myocardial infarction; Z79.82 Long term (current) use of aspirin; Z79.01 Long term (current) use of anticoagulants; Z79.899 Other long term (current) drug therapy; Z87.891 Personal history of nicotine dependence
CPT/HCPCS: 70450; 80048; 80307; 80329; 82077; 85025; 87426; 93005; 96372; 99285; G0480; J3486

== ENCOUNTER 2021-08-16 17:16 | Emergency (ER) | payer MEDICARE, SELFPAY ==
[2021-08-16 17:17] VITALS: BP 147/90; PULSE 89; RESP 14; TEMP 36.9; O2SAT 94; BMI 23.5
--- NOTE | 2021-08-16 17:31 | EKG12_ITS ---
Test Reason : Blood Pressure : / mmHG Vent. Rate : 078 BPM Atrial Rate : 078 BPM P-R Int : 190 ms QRS Dur : 114 ms QT Int : 378 ms P-R-T Axes : 040 060 -55 degrees QTc Int : 430 ms Normal sinus rhythm Inferior infarct , age undetermined ST & T wave abnormality, consider lateral ischemia Abnormal ECG Confirmed by AISHA LANDRUM, SUMAN ([id number]), photography editor CALOS CROW ([id number]) on 08/17/2021 11:41:44 AM Referred By: GLEN Confirmed By:SUMAN LEONARD MD
--- NOTE | 2021-08-16 17:32 | EX.ED.VIS.PS ---
HPI HPI - Psych History of Present Illness Chief Complaint: Mental Health Narrative Narrative: Patient presents pink slipped by police. He was walking [place] [address], confused and not making sense. He has had history of manic episodes. He has been seen multiple times for psychiatric admission/transfers. According to his EMR, he has bipolar disorder and panic disorder. He denies any suicidal ideation or homicidal ideation. [facility] Medical History Atherosclerotic heart disease of [place] coronary artery without angina pectoris Cardiomyopathy in disease classified elsewhere GERD (gastroesophageal reflux disease) Hyperlipemia Ischemic cardiomyopathy Large cell lymphoma Non-STEMI (non-ST elevated myocardial infarction) Panic disorder Peripheral vascular disease Type 2 diabetes mellitus Home Medications cholecalciferol (vitamin D3) 2,000 unit PO DAILY 09/25/18 [History Last Taken 09/23/18] aspirin 81 mg PO DAILY 10/09/18 [History Last Taken Unknown] metoprolol succinate 25 mg tablet,extended release 24 hr 25 mg PO DAILY tab 03/11/19 [History Last Taken Unknown] spironolactone 25 mg tablet 25 mg PO DAILY 03/11/19 [History Last Taken Unknown] bempedoic acid [Nexletol] 180 mg PO QHS 08/28/20 [History Last Taken Unknown] acetaminophen 325 mg tablet 650 mg PO Q6H PRN tab 07/25/21 [History Last Taken Unknown] digoxin 250 mcg (0.25 mg) tablet 250 mcg PO DAILY 07/25/21 [History Last Taken Unknown] magnesium hydroxide 400 mg/5 mL oral suspension 30 ml PO DAILY PRN ml 07/25/21 [History Last Taken Unknown] nitroglycerin 0.4 mg sublingual tablet 0.4 mg SUBLINGUAL Q5-15M PRN 07/25/21 [History Last Taken Unknown] apixaban [Eliquis] 5 mg PO BID 08/16/21 [History Last Taken Unknown] sacubitril-valsartan [Entresto] 1 tab PO BID 08/16/21 [History Last Taken Unknown] Allergy/AdvReac Type Severity Reaction Status Date / Time bee venom protein (honey bee) Allergy Anaphylaxis Verified 08/16/21 17:17 Family History Father Diabetes Surgical History History of coronary artery bypass surgery (~01/06/07) History of nasal septoplasty Presence of implantable cardioverter-defibrillator (ICD) (~04/05/19) Presence of stent in coronary artery (~12/07/13) S/P insertion of iliac artery stent Social History Smoking Status: Former smoker how long ago did patient quit smokin years ago alcohol intake: never substance use type: does not use caffeine: No ROS ROS ED ROS Narrative Review of systems is limited secondary to mental status/psychiatric condition. Constitutional: No fever, no chills. HEENT: No sore throat. No neck pain. No loss of vision. No rhinorrhea. Cardiovascular: No chest pain. No palpitations. No pedal edema. Respiratory: No cough, no shortness of breath. Abdominal: No abdominal pain. No nausea. No vomiting. Genitourinary: No dysuria. No hematuria. Musculoskeletal: No myalgias. No arthralgias. Neurologic: No headaches. No dizziness. No lightheadedness. Skin: No rash. No change in color. Psychiatric: No depression. No anxiety. Denies suicidal ideation or homicidal ideation. EXAM Physical Exam Narrative Exam Narrative: Afebrile. Vital signs noted. HEENT: Normocephalic. Atraumatic. PERRL, EOMI. Neck soft and supple. No point tenderness or step off. Cardiovascular: Regular rate and rhythm. No murmurs, rubs, or gallops appreciated. Respiratory: No tachypnea. Lungs clear to auscultation bilaterally. Gastrointestinal: Abdomen soft, nontender, with normoactive bowel sounds. No rebound or guarding. Neurological: Awake. Alert. Nonfocal, nonlateralizing. Skin: No rash. Normal color. No pallor. Musculoskeletal: No pedal edema. Full range of motion extremities. Psychiatric: Positive flight of ideas. No suicidal ideation. No homicidal ideation. Mild psychosis. Const Vital Signs: 08/16/21 17:17 08/16/21 21:46 Temperature 98.4 F 98.1 F Temperature Source Temporal Temporal Pulse Rate 89 71 Respiratory Rate 14 18 Blood Pressure 147/90 H 129/79 H Blood Pressure Mean 109 95 Pulse Ox 94 100 Oxygen Delivery Method Room Air Room Air MDM MDM MDM Narrative Medical decision making narrative: Medical screening labs will be obtained. EKG demonstrates normal sinus rhythm at 78 bpm without ectopy or acute ST changes. CBC shows normal white count of 7.0, hemoglobin normal at 14.0 with hematocrit 41.4. Normal platelet count of 218. CMP shows normal sodium and normal potassium with chloride slightly elevated at 108. Normal anion gap of 9. LFTs are grossly unremarkable except for alk phos of 43, slightly low. Alcohol level is normal at 4.0. Urine for drugs of abuse is positive for cannabinoids. At this point in time, I do feel that he is medically cleared for evaluation by case management. In discussion with case management, they also feel that the patient needs placement given his psychosis and flight of ideas. He appears manic. At this point in time, patient will be signed out to the oncoming physician, Dr. Brent Alexandre, to make final disposition versus observe the patient until final disposition can be made. He is in stable condition. Lab Data Attestation: I reviewed the patient's lab results. Labs: Laboratory Results - last 24 hr 08/16/21 08/16/21 08/16/21 17:40 17:40 17:40 WBC 7.0 RBC 4.56 L Hgb 14.0 Hct 41.4 MCV 90.8 MCH 30.7 MCHC 33.8 RDW Std Deviation 43.4 RDW Coeff of Nevaeh 13.1 Plt Count 218 MPV 9.6 Immature Gran % (Auto) 0.300 Neut % (Auto) 64.7 Lymph % (Auto) 20.9 [place] % (Auto) 10.9 H Eos % (Auto) 2.6 Baso % (Auto) 0.6 Absolute Neuts (auto) 4.6 Absolute Lymphs (auto) 1.47 Nucleated RBC % 0 Sodium 138 Potassium 3.8 Chloride 108 H Carbon Dioxide 21.0 Anion Gap 9 BUN 17 Creatinine 0.91 Estim Creat Clear Calc 89.08 Est GFR (MDRD) Af Amer 106 Est GFR (MDRD) Non-Af 88 BUN/Creatinine Ratio 18.7 Glucose 99 Calcium 9.5 Total Bilirubin 0.50 AST 15 ALT 21 Alkaline Phosphatase 43 L Total Protein 7.8 Albumin 4.1 Globulin 3.7 Albumin/Globulin Ratio 1.1 Urine Opiates Screen Urine Methadone Screen Ur Barbiturates Screen Ur Phencyclidine Scrn Ur Amphetamines Screen MDMA (Ecstasy) Screen U Benzodiazepines Scrn Urine Cocaine Screen U Cannabinoids Screen Ur Drug Screen Comment Ethyl Alcohol 4.0 08/16/21 18:00 WBC RBC Hgb Hct MCV MCH MCHC RDW Std Deviation RDW Coeff of Nevaeh Plt Count MPV Immature Gran % (Auto) Neut % (Auto) Lymph % (Auto) Desoto % (Auto) Eos % (Auto) Baso % (Auto) Absolute Neuts (auto) Absolute Lymphs (auto) Nucleated RBC % Sodium Potassium Chloride Carbon Dioxide Anion Gap BUN Creatinine Estim Creat Clear Calc Est GFR (MDRD) Af Amer Est GFR (MDRD) Non-Af BUN/Creatinine Ratio Glucose Calcium Total Bilirubin AST ALT Alkaline Phosphatase Total Protein Albumin Globulin Albumin/Globulin Ratio Urine Opiates Screen NEGATIVE Urine Methadone Screen NEGATIVE Ur Barbiturates Screen NEGATIVE Ur Phencyclidine Scrn NEGATIVE Ur Amphetamines Screen NEGATIVE MDMA (Ecstasy) Screen NEGATIVE U Benzodiazepines Scrn NEGATIVE Urine Cocaine Screen NEGATIVE U Cannabinoids Screen POSITIVE H Ur Drug Screen Comment Ethyl Alcohol Discharge Plan Triage Chief Complaint: Mental Health ED Provider: Geoff Alves Dx/Rx/DC Orders Clinical Impression: Betina, Psychosis Prescriptions: No Action acetaminophen 325 mg tablet 650 mg PO Q6H PRN (Reason: Pain) RF: 0 magnesium hydroxide [Milk of Magnesia] 400 mg/5 mL suspension 30 ml PO DAILY PRN (Reason: Indigestion) RF: 0 nitroglycerin 0.4 mg tablet, sublingual 0.4 mg sublingual Q5-15M PRN (Reason: Chest Pain) RF: 0 digoxin 250 mcg (0.25 mg) tablet 250 mcg PO DAILY RF: 0 cholecalciferol (vitamin D3) 5,000 UNIT capsule 2,000 unit PO DAILY RF: 0 aspirin 81 MG tablet,chewable 81 mg PO DAILY RF: 0 Nexletol 180 mg tablet 180 mg PO QHS RF: 0 Eliquis 5 mg tablet 5 mg PO BID RF: 0 Entresto 24-26 mg tablet 1 tab PO BID RF: 0 metoprolol succinate 25 mg tablet extended release 24 hr 25 mg PO DAILY RF: 0 spironolactone 25 mg tablet 25 mg PO DAILY RF: 0 Primary Care Provider: Jerel Caputo Referrals: Jerel Caputo MD [Primary Care Provider] - Disposition Disposition: Psychiatric Hospital or Unit
[2021-08-16 17:49] LABS: Absolute Lymphocyte Count 1.47 X10^3/uL (0.83-4.51); Absolute Neutrophil Count 4.6 X10^3/uL (2.0-7.7); Basophil# 0.04 X10^3/uL; Basophil% 0.6 % (0-1); Eosinophil# 0.18 X10^3/uL; Eosinophils% 2.6 % (0-5); Hematocrit 41.4 % (40-54); Lymphocyte # 1.47 X10^3/ul (0.83-4.51); Lymphocyte % 20.9 % (19-41); Mean Corp Hgb Conc 33.8 g/dL (32-36); Mean Corpuscular Hgb 30.7 pg (27.0-32.0); Mean Corpuscular Volume 90.8 fL (80-94); Mean Platelet Vol. 9.6 fl (6.2-12.0); Monocyte# 0.77 X10^3/uL; Monocyte% 10.9 % (0-10); NRBC Flagged by Analyzer 0 % (0-5); Neutrophil # 4.56 X10^3/uL (2.7-7.7); Neutrophil % 64.7 % (47-70); Platelet Count 218 K/mm3 (150-450); RBC Distribution Width CV 13.1 % (11.6-14.6); RBC Distribution Width SD 43.4 fl (35.1-43.9); Red Blood Count 4.56 M/mm3 (4.6-6.2)
[2021-08-16 18:04] LABS: ALB/GLOB Ratio 1.1 RATIO (0.9-2.4); AST(SGOT) 15 U/L (15-37); Alanine Aminotransfer ALT/SGPT 21 U/L (16-61); Albumin, Serum 4.1 g/dL (3.2-5.0); Alkaline Phosphatase 43 U/L (45-117); Anion Gap 9 (5-15); BUN 17 mg/dL (7-18); BUN/Creat Ratio 18.7 RATIO (10-20); Calcium,Total 9.5 mg/dL (8.5-10.1); Chloride 108 mmol/L (98-107); Creatinine, Serum 0.91 mg/dL (0.70-1.30); EST Glomerular Filtration Rate 88 mL/min (>60); Est Glom Filt Rate - Afr Amer 106 mL/min (>60); Estimated Creatinine Clearance 89.08 ml/min; Globulin 3.7 g/dL (2.2-4.2); Glucose 99 mg/dL (74-106); Potassium 3.8 mmol/L (3.5-5.1); Protein, Total 7.8 g/dL (6.4-8.2); Sodium Level 138 mmol/L (136-145)
[2021-08-16 18:24] LABS: Amphetamine Urine VISTA NEGATIVE (<1000 ng/mL); Barbiturate Urine VISTA NEGATIVE (< 200 ng/mL); Benzodiazepine Urine VISTA NEGATIVE (< 200 ng/mL); Cocaine Urine VISTA NEGATIVE (< 300 ng/mL); Ecstacy Urine VISTA NEGATIVE (< 500 ng/mL); Methadone Urine VISTA NEGATIVE (< 300 ng/mL); PCP Urine VISTA NEGATIVE (< 25 ng/mL); THC Urine VISTA POSITIVE (< 50 ng/mL); Vista UDS pH Range 4
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
--- NOTE | 2021-08-16 20:36 | CM.ED ---
DOMINIQUE called [facility] and spoke to staff. They were in a crisis situation but staff will now review the referral. Due to the time DOMINIQUE requested they call [facility] with update regarding if they can accept patient and provided [facility] with [facility] phone number. DOMINIQUE updated RN Melo and hair boiler Jamaal. DOMINIQUE called Una at [facility] and provided update regarding patient. DOMINIQUE Contreras faxed referral to [facility] for handoff. Plan: Inpatient psych Lacey MILLER
--- NOTE | 2021-08-16 21:01 | ED.RN ---
DAUGHTER CALLED IN AND PATIENT HAS PENDING ACCEPTANCE TO [facility] PRIOR TO TODAYS ADMISSION ER. YOSEF ADMISSION NURSE [phone]. SPOKE WITH DAUGHTER JANNETH WHO MADE US AWARE OF THIS [phone]. [facility] CALLED AND MADE AWARE OF THIS. THEY WILL FOLLOW UP AT THIS TIME
--- NOTE | 2021-08-16 21:27 | ED.RN ---
[facility] CALLED AND UPDATED ON PATIENT CONDITION AND STATUS AT THIS, THEY ARE FORWARDING INFORMATION TO PROVIDER FOR ADMISSION
[2021-08-16] MEDS: SACUBITRIL/VALSARTAN 24/26 MG TABLET 1 EACH PO (21:42)
[2021-08-16] MEDS: APIXABAN 5 MG TABLET PO (21:42)
[2021-08-16 21:46] VITALS: BP 129/79; PULSE 71; RESP 18; TEMP 36.7; O2SAT 100
--- NOTE | 2021-08-16 21:54 | ED.RN ---
pt ambulatory walking around room independently, no assistive devices used. no falls noted.
--- NOTE | 2021-08-16 21:54 | ED.RN ---
[facility] HAS FORMALLY ACCEPTED THE PATIENT AT THIS WAITING FOR ADDITIONAL INFORMATION AT THIS TIME TO SEND ACCEPTANCE INFORMATION
--- NOTE | 2021-08-16 22:21 | ED.RN ---
since pt arrived pt has been cooperative with care. resting in room with call light in reach.
--- NOTE | 2021-08-16 22:33 | ED.RN ---
call from nichelle prather, intake nurse. possible admission just needed ua results, lab results and nursing notes. nurse will call back after final review.
--- NOTE | 2021-08-16 22:40 | ED.RN ---
PATIENT HAS BEEN ACCEPTED TO [facility] OPT #1
[2021-08-16 23:00] VITALS: RESP 15
[2021-08-17] VITALS (15 sets, daily range): BP systolic 108–140; BP diastolic 65–78; PULSE 64–72; RESP 14–18; TEMP 35.8–36.8; O2SAT 96–99
[2021-08-17 00:05] LABS: Mucous, Urine 0 SEEN /hpf (<or=2+); Squamous Epithelial Cells - UA 0 SEEN /hpf (0-5)
[2021-08-17 00:06] LABS: Color, Urine Yellow (Yellow); Glucose, Dipstick Normal (Normal); Ketone-Dipstick 15 mg/dl (Negative); Leukocyte Esterase-Dipstick 25 /ul (Negative); Nitrite-Dipstick Negative (Negative); Occult Blood-Urine 10 /ul (Negative); Protein-Dipstick 30 mg/dl (Negative); Specific Gravity, Urine 1.025 (1.002-1.030); Urine Clarity Turbid (Clear); Urine Urobilinogen 4 mg/dl (Normal)
[2021-08-17 00:25] LABS: Urine Bilirubin Dipstick 1 mg/dL (Negative)
[2021-08-17 00:31] LABS: Amorphous Sediment 3+; Bacteria 2+ /hpf (None Seen); Calcium Oxalate Crystals Ur 2+ /hpf (<or=2+); Red Blood Cells-Urine 0-5 SEEN /hpf (0-5); White Blood Cells 5-10 SEEN /hpf (0-5)
--- NOTE | 2021-08-17 04:26 | ED.RN ---
patient has been accepted at [facility]. they will call back after 0730 with bed assignment
--- NOTE | 2021-08-17 06:16 | ED.RN ---
[facility] made aware patient has been accepted to [facility] at this time admission canceled at [facility]
--- NOTE | 2021-08-17 06:18 | ED.RN ---
daughter called and updated on patient condition and status at this time
--- NOTE | 2021-08-17 08:20 | NURSING ---
[facility] CALLED AND DENIED MR NAIDU. THEY SAID HE WAS AT [facility] LAST SO CHECK WITH THEM
--- NOTE | 2021-08-17 08:46 | ED.RN ---
[facility] CALLED AND STATED NIYAH WILL LOOK INTO MORE PLACES FOR REFERRALS
[2021-08-17] MEDS: Spironolactone 25 MG Tablet PO (10:55)
[2021-08-17] MEDS: Cholecalciferol (VIT D3) 25 MCG TABLET (1,000 UNITS) 50 MCG PO (10:55)
[2021-08-17] MEDS: Digoxin 250 MCG Tablet PO (10:55)
[2021-08-17] MEDS: Aspirin 81 MG TAB.CHEW PO (10:56)
[2021-08-17] MEDS: APIXABAN 5 MG TABLET PO (10:56)
[2021-08-17] MEDS: SACUBITRIL/VALSARTAN 24/26 MG TABLET 1 EACH PO (10:56)
[2021-08-17] MEDS: Metoprolol(XL)Succ 25 MG Tablet PO (10:57)
--- NOTE | 2021-08-17 13:03 | CM.ED ---
DOMINIQUE was updated by Kathleen that referral had been made to [facility] but patient's daughter had indicated she did not want patient to go to [facility] due to expenses of patient's last stay. DOMINIQUE called Theresa, patient's daughter. SHe said that recently she and her sister became guardians of patient. She said that she did not want patient to go to [facility]. DOMNIIQUE explained that patient needs inpatient psych hospitalization and patient's guardian was in supportive of placement. She said that previously patient had been at [facility] and then went for 3 months to [facility]. Patient has also been at [facility] which he did well at and Theresa was supportive of referral to [facility]. Theresa said that [facility] has copy of guardianship paperwork. DOMINIQUE discussed various SNF for psychiatric placements. DOMINIQUE received text from Cally at [facility]. Cally stated that patient had been referred to [facility]. Cally will fax over guardianship papers. Guardianship papers were put in chart and scanned into the computer. DOMINIQUE received call from Parveen at [facility]. He requested EKG, [facility] covid screen, pink slip, medical clearance etc. DOMINIQUE faxed the requested information to [facility] from [facility] called. He voiced that the patient has been accepted at [facility] located at [address] [place] [address] [place] [address] . RN to RN [phone] Option #2. Room 205. Accepting Dr[address] Olea. DOMINIQUE updated MD and RN. Kathleen will call for transport. DOMINIQUE called and left message for patient's daughter, Marah Mercado advising that patient is going to [facility] [place] and left phone contact for call back. DOMINIQUE updated Cally from [facility] that patient was accepted was [facility]. Plan: [facility] Lacey Prakash CYBER SECURITY MANAGER ANGELA
== END 2021-08-17 16:15 ==
PROVIDERS: Emergency Provider Emergency Medicine; PCP Family Medicine; Visit Provider Emergency Medicine
DX: F29 Unspecified psychosis not due to a substance or known physiological condition (principal); I25.10 Atherosclerotic heart disease of native coronary artery without angina pectoris; I25.5 Ischemic cardiomyopathy; I25.2 Old myocardial infarction; Z79.01 Long term (current) use of anticoagulants; Z79.82 Long term (current) use of aspirin; Z79.899 Other long term (current) drug therapy; Z95.5 Presence of coronary angioplasty implant and graft; Z95.0 Presence of cardiac pacemaker; Z87.891 Personal history of nicotine dependence
CPT/HCPCS: 80053; 80307; 81001; 82077; 85025; 87811; 93005; 99283

== ENCOUNTER → 2022-08-20 | Outpatient (CLI) | payer MEDICARE, SELFPAY ==
--- NOTE | 2022-08-20 11:30 | MRI_ITS ---
STUDY: MRI BRAIN WITHOUT CONTRAST REASON FOR EXAM: Male, 72 years old. DEMENTIA TECHNIQUE: Standardized multiplanar fat and water weighted pulse sequences were obtained. COMPARISON: CT of the brain April 05, 2021. FINDINGS: Normal size of the ventricles and extra-axial spaces for the patient''s age. There are a couple of tiny nonspecific punctate white matter lesions seen bilaterally without mass effect or restricted diffusion likely representing chronic small vessel ischemic change in patient of this age. There is no significant white matter disease or evidence for acute infarct. Normal bilateral basal ganglia. Normal thalami. There is no extra-axial fluid accumulation. Normal flow voids within the major intracranial circulation suggesting patency by spin echo criteria. Normal sella turcica, pituitary gland, infundibular stalk, optic chiasm and hypothalamus. Normal tectal plate and pineal gland. Normal midbrain, tyson and medulla. Normal cerebellum. Normal basal cisterns. Normal bilateral temporal bones. Normal bilateral internal auditory canals. No demonstrated orbital abnormality, within the constraints of a routine brain study. Normal visualized paranasal sinuses. Normal calvarium and skull base. Normal visualized soft tissue structures. Normal visualized upper cervical spine. MRI/Brain without Contrast IMPRESSION: Minor periventricular white matter ischemic changes without evidence for acute infarct. Electronically Signed: Jd Cunningham MD at 16:45 EDT ,
[2022-08-20 11:45] VITALS: BP 108/74; PULSE 84; O2SAT 95
[2022-08-20 12:00] VITALS: BP 115/66; PULSE 95; O2SAT 95
--- NOTE | 2022-08-20 12:18 | NURSING ---
mri done, remove mri pacer complete, sinus rythm to sinus indira on monitor, hr 62 with monitor strip
== END | disposition home or self-care (01) ==
LOC: MRI 11:06
PROVIDERS: PCP Family Medicine; Referring Provider Psychiatry & Neurology Sleep Medicine; Visit Provider Psychiatry & Neurology Sleep Medicine
DX: F03.90 Unspecified dementia, unspecified severity, without behavioral disturbance, psychotic disturbance, mood disturbance, and anxiety (principal)
CPT/HCPCS: 70551

== ENCOUNTER → 2022-08-22 | Outpatient (CLI) | payer MEDICARE, SELFPAY ==
[2022-08-22 16:01] LABS: ALB/GLOB Ratio 1.2 RATIO (0.9-2.4); AST(SGOT) 20 U/L (15-37); Alanine Aminotransfer ALT/SGPT 25 U/L (16-61); Albumin, Serum 4.1 g/dL (3.2-5.0); Alkaline Phosphatase 43 U/L (45-117); Anion Gap 7 (5-15); BUN 21 mg/dL (7-18); BUN/Creat Ratio 25.7 RATIO (10-20); Calcium,Total 9.9 mg/dL (8.5-10.1); Chloride 105 mmol/L (98-107); Cholesterol 126 mg/dL (200); Creatinine, Serum 0.82 mg/dL (0.70-1.30); EST Glomerular Filtration Rate 99 mL/min (>60); Est Glom Filt Rate - Afr Amer 120 mL/min (>60); Globulin 3.5 g/dL (2.2-4.2); Glucose 87 mg/dL (74-106); High Density Lipoprotein 43 mg/dL; Magnesium 2.1 mg/dL (1.6-2.6); PSA,Total - Annual Screen 1.38 ng/mL (0.00-4.00); Potassium 4.2 mmol/L (3.5-5.1); Protein, Total 7.6 g/dL (6.4-8.2); Sodium Level 135 mmol/L (136-145); Triglycerides 143 mg/dL; Very Low Density Lipoprotein 29 mg/dL (5-40)
[2022-08-22 16:19] LABS: Absolute Lymphocyte Count 1.67 X10^3/uL (0.83-4.51); Absolute Neutrophil Count 5.5 X10^3/uL (2.0-7.7); Basophil# 0.04 X10^3/uL; Basophil% 0.5 % (0-1); Eosinophil# 0.11 X10^3/uL; Eosinophils% 1.4 % (0-5); Hematocrit 41.7 % (40-54); Hemoglobin 14.6 g/dL (13.0-16.5); Lymphocyte # 1.67 X10^3/ul (0.83-4.51); Lymphocyte % 20.9 % (19-41); Mean Corpuscular Hgb 32.1 pg (27.0-32.0); Mean Corpuscular Volume 91.6 fL (80-94); Mean Platelet Vol. 10.9 fl (6.2-12.0); Monocyte# 0.65 X10^3/uL; Monocyte% 8.1 % (0-10); NRBC Flagged by Analyzer 0 % (0-5); Neutrophil # 5.48 X10^3/uL (2.7-7.7); Neutrophil % 68.7 % (47-70); Platelet Count 206 K/mm3 (150-450); RBC Distribution Width CV 12.9 % (11.6-14.6); RBC Distribution Width SD 43.6 fl (35.1-43.9); Red Blood Count 4.55 M/mm3 (4.6-6.2)
[2022-08-22 16:22] LABS: Hemoglobin A1c 5.8 % (3.8-5.6)
[2022-08-22 17:13] LABS: Digoxin Level 1.02 ng/mL (0.80-2.00)
== END | disposition home or self-care (01) ==
LOC: MTLAB 11:45
PROVIDERS: PCP Family Medicine; Referring Provider Family Medicine; Visit Provider Family Medicine
DX: I48.92 Unspecified atrial flutter (principal); E55.9 Vitamin D deficiency, unspecified; R73.02 Impaired glucose tolerance (oral); I25.10 Atherosclerotic heart disease of native coronary artery without angina pectoris; Z12.5 Encounter for screening for malignant neoplasm of prostate
CPT/HCPCS: 36415; 80053; 80061; 80162; 82306; 83036; 83735; 84153; 85025; G0103

== ENCOUNTER → 2022-12-19 | Outpatient (CLI) | payer MEDICARE, SELFPAY ==
[2022-12-19 15:08] LABS: Absolute Lymphocyte Count 1.83 X10^3/uL (0.83-4.51); Absolute Neutrophil Count 7.1 X10^3/uL (2.0-7.7); Basophil# 0.06 X10^3/uL; Basophil% 0.6 % (0-1); Eosinophil# 0.07 X10^3/uL; Eosinophils% 0.7 % (0-5); Hematocrit 42.9 % (40-54); Hemoglobin 14.4 g/dL (13.0-16.5); Lymphocyte # 1.83 X10^3/ul (0.83-4.51); Lymphocyte % 18.5 % (19-41); Mean Corp Hgb Conc 33.6 g/dL (32-36); Mean Corpuscular Hgb 31.8 pg (27.0-32.0); Mean Corpuscular Volume 94.7 fL (80-94); Mean Platelet Vol. 10.4 fl (6.2-12.0); Monocyte% 8.1 % (0-10); NRBC Flagged by Analyzer 0 % (0-5); Neutrophil # 7.08 X10^3/uL (2.7-7.7); Neutrophil % 71.8 % (47-70); Platelet Count 221 K/mm3 (150-450); RBC Distribution Width CV 13.2 % (11.6-14.6); RBC Distribution Width SD 45.9 fl (35.1-43.9); Red Blood Count 4.53 M/mm3 (4.6-6.2); White Blood Count 9.9 K/mm3 (4.4-11.0)
[2022-12-19 15:39] LABS: ALB/GLOB Ratio 1.1 RATIO (0.9-2.4); AST(SGOT) 18 U/L (15-37); Alanine Aminotransfer ALT/SGPT 21 U/L (16-61); Albumin, Serum 4.1 g/dL (3.2-5.0); Alkaline Phosphatase 42 U/L (45-117); Anion Gap 4 (5-15); BUN 15 mg/dL (7-18); BUN/Creat Ratio 19.1 RATIO (10-20); Calcium,Total 9.8 mg/dL (8.5-10.1); Chloride 106 mmol/L (98-107); Cholesterol 138 mg/dL (200); Creatinine, Serum 0.79 mg/dL (0.70-1.30); EST Glomerular Filtration Rate 103 mL/min (>60); Est Glom Filt Rate - Afr Amer 125 mL/min (>60); Globulin 3.6 g/dL (2.2-4.2); Glucose 108 mg/dL (74-106); High Density Lipoprotein 52 mg/dL; Magnesium 2.3 mg/dL (1.6-2.6); Potassium 3.9 mmol/L (3.5-5.1); Protein, Total 7.7 g/dL (6.4-8.2); Sodium Level 135 mmol/L (136-145); Thyroid Stim Hormone (TSH) 1.06 uIU/mL (0.358-3.74); Triglycerides 69 mg/dL; Very Low Density Lipoprotein 14 mg/dL (5-40)
[2022-12-19 16:02] LABS: Vitamin D,25 Hydroxy 54.3 ng/mL
[2022-12-19 16:06] LABS: Hemoglobin A1c 5.8 % (3.8-5.6)
== END | disposition home or self-care (01) ==
LOC: MTLAB 12:36
PROVIDERS: PCP Family Medicine; Visit Provider Family Medicine
DX: R73.02 Impaired glucose tolerance (oral) (principal); I50.22 Chronic systolic (congestive) heart failure; I48.92 Unspecified atrial flutter; E78.5 Hyperlipidemia, unspecified; E55.9 Vitamin D deficiency, unspecified
CPT/HCPCS: 36415; 80053; 80061; 82306; 83036; 83735; 84443; 85025

== ENCOUNTER → 2023-03-04 | Outpatient (CLI) | payer MEDICARE, SELFPAY ==
--- NOTE | 2023-03-04 17:49 | STRESSREP_ITS ---
Stress Test Report Exercise myocardial perfusion stress test. 73-year-old male with a history of coronary disease, status post bypass surgery, status post ICD implantation. Stress protocol: Resting EKG demonstrates normal sinus rhythm with a rate of 72 bpm resting blood pressure is 102/60 mmHg. The patient exercised according to the regular Kraig protocol for a total duration of 3 minutes and 30 seconds attaining a maximum heart rate of 137 bpm which was 91% of maximum predicted heart rate; the maximum workload was 5.8 metabolic equivalents. At rest there were no ST or T wave changes noted to suggest ischemia, but downsloping ST depression was noted in leads II, III and aVF which appeared to get worse with exertion but not diagnostic of ischemia. No clinical angina was noted the test was terminated due to the target heart rate being achieved/fatigue. The peak blood pressure was 124/64 mmHg. [place]-pressure product was [address] Myocardial perfusion protocol. 11.9 mCi of technetium 99m sestamibi was injected at rest. The patient exercised according to regular Kraig protocol for total duration of 3 minutes and 30 seconds and at peak exercise 33.5 mCi of technetium 99m sestamibi was injected stress images were obtained stress and rest images were reconstructed in comparing the short axis vertical long and horizontal long axis. Gated images were also obtained. Perfusion SPECT analysis: Review of the stress images demonstrate normal uptake of tracer noted in all areas of the myocardium with a dilated cardiomyopathy. There was extensive previous inferior septal, inferolateral and mid inferior infarct noted. The resting images similarly demonstrate normal uptake of tracer noted in all areas of the myocardium with previous extensive inferolateral, inferoseptal and mid inferior infarct noted. Minimal improvement was noted suggestive of liv- infarct ischemia. GI attenuation artifact was also noted. Gated SPECT analysis: The gated ejection fraction is 30%. Conclusion: Normal exercise myocardial perfusion stress test at a low workload Previous inferior septal and inferolateral and mid inferior infarct noted Cardiomyopathy present with reduced ejection fraction.
== END | disposition home or self-care (01) ==
PROVIDERS: PCP Family Medicine; Referring Provider Nurse Practitioner Family; Visit Provider Nurse Practitioner Family
DX: I25.10 Atherosclerotic heart disease of native coronary artery without angina pectoris (principal); I25.5 Ischemic cardiomyopathy; Z95.1 Presence of aortocoronary bypass graft
CPT/HCPCS: 78452; 93017; A9500; A4216

== ENCOUNTER → 2023-04-17 | Outpatient (CLI) | payer MEDICARE, SELFPAY ==
--- OUTSIDE RECORDS SUMMARY | 2023-04-17 12:19 | XMS RPT_ITS | CCD ---
Author Name Unknown Address [address] [place] [address] Organization [facility] Care Team Providers Care Examination Proctor Name Role Phone PROVIDER, UNKNOWN Attending Unavailable PROVIDER, UNKNOWN Admitting Unavailable PATIENT, SELF Referring Unavailable NATALIE, DR TYSHAWN Mayfield Attending Unavailtrinh ESTRADA, DR TYSHAWN Mayfield Primary Care Unavailtrinh ESTRADA, DR TYSHAWN Mayfield Admitting Unavaila Patricia Howard Primary Care Provider Juaquin Bates Unavailable Marianela Weeks MD Unavailable Patricia Burden Primary Care Provider [phone] Juaquin Bates Unavailable Marianela Weeks MD Unavailable Patricia Burden Primary Care Provider Juaquin Bates Unavailable Marianela Weeks MD Unavailable [phone] JENISE LANDRUM, PATRICIA [facility] Physician LIYA LANDRUM, DR JIMENEZ Attending Unavailable PATRICIA BURDEN MD Primary Care Unavailable TYSHAWN HORN JR Referring Unavailable PATRICIA BURDEN Primary Care UnavailJOHNNA Schrader Attending Unavailable PATRICIA BURDEN Primary Care Unavailjalen e [facility] Unavail[facility] Jenkins Referring Unavailable PATRICIA BURDEN Primary Care UnavailMARIANELA Jenkins Referring Unavailable PATRICIA BURDEN EDHYANNIS Primary Care UnavailMARIANELA Jenkins Attending Unavailable MARIANELA WEEKS [facility] Referring Unavailable [facility] e NOHEMY BURGER [facility]KS [facility] Selby Attending Unavailable MARIANELA WEEKS Referring Unavailable [facility] saroj TYSHAWN HORN JR Attending Unavailable [facility] Allergies Allergy Classification Reported Allergen(s) Allergy Type Date of Onset Reaction(s) Facility NEGATED: Highlighted row has been ruled out! (1 source) natural latex rubber; Translations: [LATEX, NATURAL RUBBER] Drug allergy (disorder) [facility] [place] NEGATED: Highlighted row has been ruled out! (1 source) No IV Contrast Allergy.; Translations: [IV Dye, Iodine Containing] Drug allergy (disorder) [facility] [place] Medications Current Medications Medication Drug Class(es) Dates Sig (Normalized) Sig (Original) Albuterol (1 source) beta2-Adrenergic Agonist Start: 08-06-2010 take 180 ug by inhalation every six hours as needed for wheezing Ventolin HFA 180 mcg, Inhalation, q6hr, PRN, as needed for wheezing Start Date: 08/06/10 Status: Ordered ALPRAZolam 0.5 mg oral tablet (1 source) Benzodiazepine Start: 08-06-2010 take 1 tablet by mouth twice daily as needed for anxiety Xanax 0.5 mg, Oral, BID, PRN for anxiety, tab(s), 0 Refill(s) Start Date: 08/06/10 Status: Ordered atorvastatin 20 mg oral tablet (1 source) HMG-CoA Reductase Inhibitor Start: 07-30-2010 take 1 tablet by mouth once daily Lipitor 20 mg oral tablet = 1 tab(s), PO, Daily, # 30 tab(s), 0 Refill(s) Start Date: 07/30/10 Status: Ordered docusate sodium 100 mg oral tablet (1 source) Start: 08-06-2010 take 100 mg by mouth twice daily Colace 100 mg, Oral, BID, 0 Refill(s) Start Date: 08/06/10 Status: Ordered lamoTRIgine 25 mg oral tablet (1 source) Mood Stabilizer, Anti-epileptic Agent Start: 08-06-2010 take 25 mg by mouth once daily at bedtime Lamictal 25 mg, Oral, qHS, 0 Refill(s) Start Date: 08/06/10 Status: Ordered perflutren lipid microspheres 1.3 mL in NaCl (PF) 0.9% 10 mL injection (DEFINITY) (20 sources) Start: 06-05-2021 End: 09-04-2022 perflutren lipid microspheres 1.3 mL in NaCl (PF) 0.9% 10 mL injection (DEFINITY) Completed/Discontinued Medications Medication Drug Class(es) Dates Sig (Normalized) Sig (Original) acetaminophen 325 mg oral tablet (20 sources) Start: 10-24-2020 take 2 tablets by mouth every six hours as needed acetaminophen (TYLENOL) 325 mg tablet Take 2 tablets by mouth every 6 hours as needed for pain. 0 10/24/2020 Active Problems Active Problems Problem Classification Problem Date Documented Date Episodic/Chronic Anxiety disorders (20 sources) Obsessive-compulsive disorder; Translations: [Obsessive-compulsive disorder, unspecified] Onset: 03-24-2008 03-24-2008 Chronic Cardiac dysrhythmias (20 sources) Typical atrial flutter; Translations: [Typical atrial flutter] Onset: 09-26-2018 10-09-2018 Chronic Coagulation and hemorrhagic disorders (20 sources) Blood coagulation disorder; Translations: [Coagulation defect, unspecified] Onset: 09-28-2018 10-09-2018 Chronic Conduction disorders (3 sources) Automatic implantable cardiac defibrillator in situ; Translations: [Presence of automatic (implantable) cardiac defibrillator] Onset: 08-30-2022 Chronic Congestive heart failure; nonhypertensive (20 sources) Heart failure; Translations: [Biventricular heart failure] Onset: 09-26-2018 09-26-2018 Chronic Coronary atherosclerosis and other heart disease (20 sources) Coronary atherosclerosis; Translations: [Atherosclerotic heart disease of [place] coronary artery without angina pectoris] Onset: 01-07-2019 01-07-2019 Chronic Delirium, dementia, and amnestic and other cognitive disorders (3 sources) Dementia; Translations: [Unspecified dementia without behavioral disturbance] Onset: 07-22-2022 Chronic Disorders of lipid metabolism (20 sources) Pure hypercholesterolemia; Translations: [Pure hypercholesterolemia, unspecified] Onset: 03-24-2008 03-24-2008 Chronic Esophageal disorders (20 sources) Gastroesophageal reflux disease; Translations: [Gastro-esophageal reflux disease without esophagitis] Onset: 03-24-2008 03-24-2008 Chronic Essential hypertension (1 source) Hypertensive disorder Onset: 10-24-2008 10-24-2008 Chronic Miscellaneous mental health disorders (20 sources) Non-organic sleep disorder; Translations: [Sleep disorder not due to a substance or known physiological condition, unspecified] Onset: 03-24-2008 03-24-2008 Chronic Mood disorders (20 sources) Bipolar disorder; Translations: [Bipolar disorder, unspecified] Onset: 03-24-2008 03-24-2008 Chronic Mood disorders (1 source) Mood disorders Onset: 04-07-2006 01-06-2007 Non-Hodgkin`s lymphoma (20 sources) 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, face AND/OR neck; Translations: [Other specified types of non-Hodgkin lymphoma, lymph nodes of head, face, and neck] Onset: 03-24-2008 03-24-2008 Chronic Non-Hodgkin`s lymphoma (1 source) Non-Hodgkin`s lymphoma Onset: 04-07-2004 01-06-2007 Nutritional deficiencies (20 sources) Moderate protein energy malnutrition; Translations: [Moderate protein-calorie malnutrition] Onset: 09-28-2018 10-09-2018 Chronic Other aftercare (1 source) terminal clerk (current) use of anticoagulants; Translations: [On continuous oral anticoagulation] Onset: 08-30-2022 Episodic Other aftercare (1 source) Drug therapy finding; Translations: [terminal clerk (current) use of anticoagulants] Episodic Other and ill-defined heart disease (20 sources) Left ventricular thrombus; Translations: [Intracardiac thrombosis, not elsewhere classified] Onset: 09-26-2018 10-09-2018 Chronic Other and ill-defined heart disease (1 source) Intracardiac thrombosis, not elsewhere classified; Translations: [Left ventricular thrombus] Onset: 10-09-2018 Chronic Other male genital disorders (20 sources) Secondary erectile dysfunction; Translations: [Male erectile dysfunction, unspecified] Onset: 03-24-2008 03-24-2008 Chronic Other screening for suspected conditions (not mental disorders or infectious disease) (2 sources) Encounter for screening for malignant neoplasm of colon; Translations: [Patient encounter status] Onset: 08-30-2022 Episodic Other upper respiratory disease (20 sources) Allergic rhinitis; Translations: [Allergic rhinitis, unspecified] Onset: 03-24-2008 03-24-2008 Chronic [place]-; endo-; and myocarditis; cardiomyopathy (except that caused by tuberculosis or sexually transmitted disease) (20 sources) Cardiomyopathy associated with another disorder; Translations: [Cardiomyopathy in diseases classified elsewhere] Onset: 03-24-2008 03-24-2008 Chronic Peripheral and visceral atherosclerosis (20 sources) Peripheral vascular disease; Translations: [Peripheral vascular disease, unspecified] Onset: 03-24-2008 10-09-2018 Chronic Residual codes; unclassified (20 sources) Restlessness and agitation; Translations: [Restlessness and agitation] Onset: 09-05-2020 09-05-2020 Chronic Residual codes; unclassified (1 source) Other specified health status; Translations: [Other drug allergy] Episodic Residual codes; unclassified (2 sources) Confabulation; Translations: [Other amnesia] Episodic Screening and history of mental health and substance abuse codes (2 sources) H/O: manic depressive disorder; Translations: [Personal history of other mental and behavioral disorders] Episodic Substance-related disorders (20 sources) Tobacco user; Translations: [Nicotine dependence, unspecified, uncomplicated] Onset: 03-24-2008 09-14-2020 Chronic Unclassified (2 sources) Cough, unspecified; Translations: [Cough, unspecified] Onset: 02-15-2021 Unclassified (1 source) [id number] [place] annika no tpw's left radial per dr. landa Onset: 04-07-2006 01-06-2007 Unclassified (1 source) Heart attack/heart disease 07 Onset: 10-24-2008 10-24-2008 Unclassified (1 source) High Cholesterol Onset: 10-24-2008 10-24-2008 Unclassified (1 source) Lymphoma - remission 05 Onset: 10-24-2008 10-24-2008 Past or Other Problems Problem Classification Problem Date Documented Da te Episodic/Chronic Diabetes mellitus without complication (3 sources) Prediabetes; Translations: [Prediabetes] Onset: 01-02-2022 Episodic Gastritis and duodenitis (20 sources) Acute gastritis; Translations: [Acute gastritis without bleeding] Onset: 09-16-2008 09-16-2008 Episodic Malaise and fatigue (20 sources) Malaise and fatigue; Translations: [Other malaise] Onset: 03-24-2008 03-24-2008 Episodic Nausea and vomiting (20 sources) Nausea; Translations: [Nausea] Onset: 09-16-2008 09-16-2008 Episodic Other gastrointestinal disorders (20 sources) Constipation; Translations: [Constipation, unspecified] Onset: 03-24-2008 03-24-2008 Episodic Other nutritional; endocrine; and metabolic disorders (20 sources) Weight loss; Translations: [Abnormal weight loss] Onset: 03-24-2008 03-24-2008 Episodic Other nutritional; endocrine; and metabolic disorders (20 sources) Overweight; Translations: [Overweight] Onset: 10-20-2020 10-20-2020 Episodic Residual codes; unclassified (20 sources) Noncompliance with treatment; Translations: [Patient's noncompliance with other medical treatment and regimen] Onset: 08-29-2020 08-29-2020 Episodic Spondylosis; intervertebral disc disorders; other back problems (20 sources) Backache; Translations: [Dorsalgia, unspecified] Onset: 03-24-2008 03-24-2008 Episodic Unclassified (1 source) Cough, unspecified; Translations: [Cough, unspecified] Onset: 02-15-2021 Results Test Name Value Interpretation Reference Range Facil ity Vital Signs Date Time Vital Sign Value Performing Clinician Angel hebert 08-30-2022 09:43-0400 Body height 188 cm Johnna Giang [employer] Work Phone: [facility] 08-30-2022 09:43-0400 Body temperature 97 [degF] Johnna Giang PA-C Work Phone: [facility] 08-30-2022 09:43-0400 Body weight 76.2 kg Johnna Giang PA-C Work Phone: [facility] 08-30-2022 09:43-0400 Diastolic blood pressure 54 mm[Hg] Johnna Giang PA-C Work Phone: [facility] 08-30-2022 09:43-0400 Heart rate 80 /min Johnna [place] PA-[employer] Work Phone: [facility] 08-30-2022 09:43-0400 SaO2% (BldA) [Mass fraction] 99 % Johnna FITZGERALD-Rustam Work Phone: [facility] 08-30-2022 09:43-0400 Systolic blood pressure 98 mm[Hg] Johnna FITZGERALD-Rustam Work Phone: [facility] 07-22-2022 15:42-0400 Body temperature 97.81 [degF] Tyshawn Horn Jr., MD Work Phone: [facility] 07-22-2022 15:42-0400 Body weight 79.2 kg Tyshawn Horn Jr., MD Work Phone: [facility] 07-22-2022 15:42-0400 Diastolic blood pressure 67 mm[Hg] Tyshawn Horn Jr., MD Work Phone: [facility] 07-22-2022 15:42-0400 Heart rate 82 /min Tyshawn Horn Jr., MD Work Phone: [facility] 07-22-2022 15:42-0400 Respiratory rate 20 /min Tyshawn Horn Jr., MD Work Phone: [facility] 07-22-2022 15:42-0400 SaO2% (BldA) [Mass fraction] 97 % Tyshawn Horn Jr., MD Work Phone: [facility] 07-22-2022 15:42-0400 Systolic blood pressure 100 mm[Hg] Tyshawn Horn Jr., MD Work Phone: [facility] 04-16-2022 13:48-0500 Body height 190.5 cm Marianela Weesk MD Work Phone: [facility] 04-16-2022 13:48-0500 Body weight 82.46 kg Marianela Weeks MD Work Phone: [facility] 04-16-2022 13:48-0500 Diastolic blood pressure 76 mm[Hg] Marianela Weeks MD Work Phone: [facility] 04-16-2022 13:48-0500 Heart rate 74 /min Marianela Weeks MD Work Phone: [facility] 04-16-2022 13:48-0500 SaO2% (BldA) [Mass fraction] 97 % Marianela Weeks MD Work Phone: [facility] 04-16-2022 13:48-0500 Systolic blood pressure 146 mm[Hg] Marianela Weeks MD Work Phone: [facility] 01-02-2022 12:55-0400 Body height 188 cm Marianela Weeks MD Work Phone: [facility] 01-02-2022 12:55-0400 Body weight 87.54 kg Marianela Weeks MD Work Phone: [facility] 01-02-2022 12:55-0400 Diastolic blood pressure 74 mm[Hg] Marianela Weeks MD Work Phone: [facility] 01-02-2022 12:55-0400 Heart rate 70 /min Marianela Weeks MD Work Phone: [facility] 01-02-2022 12:55-0400 SaO2% (BldA) [Mass fraction] 97 % Marianela Weeks MD Work Phone: [facility] 01-02-2022 12:55-0400 Systolic blood pressure 111 mm[Hg] Marianela Weeks MD Work Phone: [facility] 07-08-2021 08:12-0400 Body weight 82.2 kg DO Javid Shane DO [facility] [place] Encounters Encounter Date Encounter Type Care Provider Facility Start: 09-22-2022 ambulatory Tyshawn larsen Jr., MD Work Phone: [facility] Start: 09-22-2022 Follow-up encounter Tyshawn Horn MD Work Phone: Neurology Procedures Date Procedure Procedure Detail Performing Clinician Start: 04-16-2022 ICD CLINIC CHECK Heraclio Bowens MD Work Phone: Start: 01-02-2022 ICD CLINIC CHECK Nohemy Burger MD, PhD Work Phone: Start: 01-02-2022 Echo tthrc r-t 2d w/wom-mode compl spec&colr d Marianela Weeks MD Work Phone: Start: 01-02-2022 LVEF TRANSTHORACIC ECHO Marianela Weeks MD Work Phone: Start: 04-05-2019 Adult depression scr eening assessment Marianela Weeks MD Work Phone: Start: 09-16-2008 Colonoscopy Marianela cooper MD Work Phone: Plan of Treatment Date Care Activity Detail Author Start: 04-16-2027 LIPID SCREEN LIPID SCREEN [facility] Start: 01-02-2027 LIPID SCREEN LIPID SCREEN [facility] Start: 10-19-2025 LIPID SCREEN LIPID SCREEN [facility] Start: 04-16-2025 DIABETES SCREEN DIABETES SCREEN [facility] Start: 01-02-2025 DIABETES SCREEN DIABETES SCREEN [facility] Start: 03-02-2024 DIABETES SCREEN DIABETES SCREEN [facility] Start: 04-16-2023 Hepatitis B surface antibody level LDL CHOLESTEROL [facility] Start: 01-02-2023 Hepatitis B surface antibody level LDL CHOLESTEROL [facility] Start: 12-06-2022 [facility] Start: 07-29-2022 End: 09-28-2022 Ammonia [Moles/volume] in Plasma AMMONIA BLD Lab Routine Dementia without behavioral disturbance (HCC) History of bipolar disorder Confabulation Expected: 07/29/2022, Expires: 09/28/2022 [facility] Work Phone: Payers Date Payer Category Payer Unknown [id number] 2021 Medicare [id number] 2021 Unknown ANTHEM BLUE CROS S AND BLUE SHIELD ANTHEM MEDIBLUE HMO [id number] 2021-Present [phone] [address] [place] [address] O [id number] 2021 Medicare HUMANA MEDICARE HUMANA GOLD PLUS [id number] 2021-Present [phone] [address] [address] [place] [address] O [id number] 2018 Unknown 1950 Unknown [id number] 1950 Unknown [id number] 1950 Unknown [id number] Social History Date Type Detail Facility Start: 07-08-2021 Denies Ever Smoked [place] Start: 09-26-2018 Tobacco smoking stat us WIIS Ex-smoker [facility] Work Phone: History of tobacco use Cigarette Smoker C [facility] Work Phone: Start: 09-26-2018 End: 08-27-2022 Cigarettes smoked current (pack per day) - Reported 2 [facility] Start: 09-26-2018 End: 08-27-2022 Tobacco use and exposure Smokeless tobacco non-user [facility] Work Phone: Start: 06-05-2021 End: 08-30-2022 Alcohol intake Current drinker of alcohol (finding) [facility] Start: 1950 Sex Assigned At Not on file C [facility] Start: 01-02-2022 End: 08-27-2022 Tobacco smoking status WIIS Smokes tobacco daily [facility] Start: 12-23-2021 End: 01-02-2022 Exposure to SARS-CoV-2 (event) Not sure [facility] Start: 12-31-2021 End: 01-10-2022 Exposure to SARS-CoV-2 (event) Unable to assess [facility] History of tobacco use Current smoker [facility] Work Phone: Tobacco smoking status [facility] History of tobacco use Pipe Smoker [facility] Clinical Notes 09-30-2018 to 09-04-2022 Telephone Encounter - Luz Maria Paul - 09/04/2022 12:01 PM Michelle Giang PA-C - 08/30/2022 11:43 AM Lcaie Limon LPN - 08/30/2022 9:44 AM Marisa Horn Jr., MD - 07/22/2022 3:44 PM EDT Note Date & Type Note Facility 09-04-2022 Miscellaneous Notes PATIENT STATED HE IS SEEKING SERVICES ELSEWHERE AT [facility] FOR COLONOSCOPY documented in this encounter [facility] 08-30-2022 Note HNO ID: [id number] Author: Johnna Giang PA-C Service: ? Author Type: Physician Tube Inspector Type: Progress Notes Filed: 09/05/2022 1:40 PM Note Text: HISTORY AND PHYSICAL Jimmy Mercado 1950 REFERRING PHYSICIAN: No ref. provider found CHIEF COMPLAINT: Consult (Colonoscopy) HPI: The patient is a 72 year old male referred for endoscopy. Patient resides in assisted living facility and presents today with caregiver from his facility. Jimmy notes no colon complaints. Patient denies any change in bowel habits, weight changes, blood in stools, black tarry stools or abdominal pain. Denies family history of colon issues. The patient notes no upper GI complaints. Jimmy has undergone prior endoscopy, last in [address] Gibbs. No concerning findings at that time. Patient's medical history is significant for COPD, cardiomyopathy, s/p CABG, ICD in place, maintained on oral anticoagulation PAST MEDICAL HISTORY Diagnosis Date Acute gastritis without mention of hemorrhage Allergic rhinitis, cause 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 Atherosclerosis of [place] arteries of the extremities with intermittent claudication 03/24/2008 left Backache, 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 Bipolar affective disorder, currently manic, moderate (HCC) 2010 hospitalized at [facility] 04/06/2010-04/27/2010 Bipolar disorder, unspecified (HCC) 03/24/2008 Cardiomyopathy in other diseases classified elsewhere 03/24/2008 COPD (chronic obstructive pulmonary disease) (HCC) Esophageal reflux 03/24/2008 Hx of CABG 2007 Impotence of organic origin 03/24/2008 Ischemic cardiomyopathy 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HCC) Loss of weight 03/24/2008 Loss of weight Lymphoma in remission (HCC) chemo and radiation Nausea alone Nonorganic sleep disorder, 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 NSTEMI (non-ST elevated myocardial infarction) ([facility]) s/p 3 stents 2014 Obsessive-compulsive disorders 03/24/2008 OCD (obsessive compulsive disorder) Other malaise and fatigue 03/24/2008 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, face, and neck 03/24/2008 PAD (peripheral artery disease) ([facility]) s/p right iliac stent 2006 Panic disorder without agoraphobia 03/24/2008 Peripheral vascular disease, unspecified ([facility]) 03/24/2008 Pure hypercholesterolemia 03/24/2008 Tobacco use disorder 03/24/2008 Unspecified constipation PAST SURGICAL HISTORY Procedure Laterality Date COLONOSCOPY FLX DX W/COLLJ SPEC WHEN PFRMD 09/16/08 CORONARY ARTERY BYPASS 5 CORONARY VENOUS GRAFTS 01/11 Emily Lamb EGD TRANSORAL BIOPSY SINGLE/MULTIPLE 09/16/08 ESOPHAGOGASTRODUODENOSCOPY TRANSORAL DIAGNOSTIC 1988 [facility] EGD PAST SURGICAL HISTORY OF nasal septum surgery PAST SURGICAL HISTORY OF biopsy- neck mass- lymphoma STENT ARTERIAL EXTREMITY 09/11 Right iliac a stent Current Outpatient Medications Medication Sig apixaban (ELIQUIS) 5 mg tab(s) Take 1 tablet by mouth twice daily. metoprolol succinate ER (TOPROL XL) 50 mg 24 hr tablet Take 1 tablet by mouth once daily. sacubitril-valsartan (ENTRESTO) 49-51 mg tablet Take 1 tablet by mouth twice daily. ezetimibe (ZETIA) 10 mg tablet Take 1 tablet by mouth once daily. paliperidone palmitate (INVEGA SUSTENNA) 156 mg/mL syrg injection Inject 1 mL intramuscularly. omeprazole (PRILOSEC) 20 mg capsule Take 1 capsule by mouth once daily. [place] Fruit 450 mg cap Take by mouth once daily. dapagliflozin (FARXIGA) 10 mg tablet Take 1 tablet by mouth daily with breakfast. digoxin (LANOXIN) 125 mcg (0.125 mg) tablet Take 1 tablet by mouth once daily. bempedoic acid (NEXLETOL) 180 mg tablet Take 1 tablet (180 mg) by mouth daily at bedtime. spironolactone (ALDACTONE) 25 mg tablet Take 1 tablet by mouth once daily. acetaminophen (TYLENOL) 325 mg tablet Take 2 tablets by mouth every 6 hours as needed for pain. nitroglycerin sublingual (NITROSTAT) 0.4 mg SL tablet Dissolve 1 tablet under the tongue as needed for Chest Pain. If no pain relief call 911. cholecalciferol (VITAMIN D3) 5,000 unit tab Take 2,000 Units by mouth once daily. Aspirin 81 mg ORAL Tab Take one(1) tablet daily. peg 3350-Electrolytes (GOLYTELY) 236-22.74-6.74 -5.86 gram suspension Take 4,000 mL by mouth one time only for 1 dose. Current Facility-Administered Medications Medication Dose Route Frequency sodium chloride 0.9 % (flush) 10 mL (BD POSIFLUSH) 10 mL INTRAVENOUS DIRECTED PRN ALLERGIES: Patient has no known allergies. PERSONAL HISTORY: Social History Tobacco Use Smoking status: Every Day Packs/day: 2.00 Years: 50.00 Pack years: 100.00 Types: Cigarettes, Pipe Smokeless tobacco: Never Vaping Use Vaping Use: Never used Substance Use Topics Alcohol use: Yes Drug use: Yes Comment: occ pot FAMILY HISTORY: FAMILY HISTORY Problem Relation Age of Onset Hypertension Mother Diabetes Father Alzheimer's Disease Father Stroke Father Hypertension Father other (Other) Sister 50 frontal tempo (more content not included)... [facility] 08-30-2022 History of Present illness Narrative HISTORY AND PHYSICAL Jimmy Mercado 1950 REFERRING PHYSICIAN: No ref. provider found CHIEF COMPLAINT: Consult (Colonoscopy) HPI: The patient is a 72 year old male referred for endoscopy. Patient resides in assisted living facility and presents today with caregiver from his facility. Jimmy notes no colon complaints. Patient denies any change in bowel habits, weight changes, blood in stools, black tarry stools or abdominal pain. Denies family history of colon issues. The patient notes no upper GI complaints. Jimmy has undergone prior endoscopy, last in [address] Gibbs. No concerning findings at that time. Patient's medical history is significant for COPD, cardiomyopathy, s/p CABG, ICD in place, maintained on oral anticoagulation PAST MEDICAL HISTORY Diagnosis Date Acute gastritis without mention of hemorrhage Allergic rhinitis, cause 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 Atherosclerosis of [place] arteries of the extremities with intermittent claudication 03/24/2008 left Backache, 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 Bipolar affective disorder, currently manic, moderate ([facility]) 2010 hospitalized at [facility] 04/06/2010-04/27/2010 Bipolar disorder, unspecified ([facility]) 03/24/2008 Cardiomyopathy in other diseases classified elsewhere 03/24/2008 COPD (chronic obstructive pulmonary disease) ([facility]) Esophageal reflux 03/24/2008 Hx of CABG 2007 Impotence of organic origin 03/24/2008 Ischemic cardiomyopathy 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[facility]) Loss of weight 03/24/2008 Loss of weight Lymphoma in remission ([facility]) chemo and radiation Nausea alone Nonorganic sleep disorder, 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 NSTEMI (non-ST elevated myocardial infarction) ([facility]) s/p 3 stents 2014 Obsessive-compulsive disorders 03/24/2008 OCD (obsessive compulsive disorder) Other malaise and fatigue 03/24/2008 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, face, and neck 03/24/2008 PAD (peripheral artery disease) ([facility]) s/p right iliac stent 2007 Panic disorder without agoraphobia 03/24/2008 Peripheral vascular disease, unspecified ([facility]) 03/24/2008 Pure hypercholesterolemia 03/24/2008 Tobacco use disorder 03/24/2008 Unspecified constipation PAST SURGICAL HISTORY Procedure Laterality Date COLONOSCOPY FLX DX W/COLLJ SPEC WHEN PFRMD 09/16/08 CORONARY ARTERY BYPASS 5 CORONARY VENOUS GRAFTS 01/11 EGD TRANSORAL BIOPSY SINGLE/MULTIPLE 09/16/08 ESOPHAGOGASTRODUODENOSCOPY TRANSORAL DIAGNOSTIC 1988 [facility] EGD PAST SURGICAL HISTORY OF nasal septum surgery PAST SURGICAL HISTORY OF biopsy- neck mass- lymphoma STENT ARTERIAL EXTREMITY 09/11 Right iliac a stent Current Outpatient Medications Medication Sig apixaban (ELIQUIS) 5 mg tab(s) Take 1 tablet by mouth twice daily. metoprolol succinate ER (TOPROL XL) 50 mg 24 hr tablet Take 1 tablet by mouth once daily. sacubitril-valsartan (ENTRESTO) 49-51 mg tablet Take 1 tablet by mouth twice daily. ezetimibe (ZETIA) 10 mg tablet Take 1 tablet by mouth once daily. paliperidone palmitate (INVEGA SUSTENNA) 156 mg/mL syrg injection Inject 1 mL intramuscularly. omeprazole (PRILOSEC) 20 mg capsule Take 1 capsule by mouth once daily. Saw [place] Fruit 450 mg cap Take by mouth once daily. dapagliflozin (FARXIGA) 10 mg tablet Take 1 tablet by mouth daily with breakfast. digoxin (LANOXIN) 125 mcg (0.125 mg) tablet Take 1 tablet by mouth once daily. bempedoic acid (NEXLETOL) 180 mg tablet Take 1 tablet (180 mg) by mouth daily at bedtime. spironolactone (ALDACTONE) 25 mg tablet Take 1 tablet by mouth once daily. acetaminophen (TYLENOL) 325 mg tablet Take 2 tablets by mouth every 6 hours as needed for pain. nitroglycerin sublingual (NITROSTAT) 0.4 mg SL tablet Dissolve 1 tablet under the tongue as needed for Chest Pain. If no pain relief call 911. cholecalciferol (VITAMIN D3) 5,000 unit tab Take 2,000 Units by mouth once daily. Aspirin 81 mg ORAL Tab Take one(1) tablet daily. peg 3350-Electrolytes (GOLYTELY) 236-22.74-6.74 -5.86 gram suspension Take 4,000 mL by mouth one time only for 1 dose. Current Facility-Administered Medications Medication Dose Route Frequency sodium chloride 0.9 % (flush) 10 mL (BD POSIFLUSH) 10 mL INTRAVENOUS DIRECTED PRN ALLERGIES: Patient has no known allergies. PERSONAL HISTORY: Social History Tobacco Use Smoking status: Every Day Packs/day: 2.00 Years: 50.00 Pack years: 100.00 Types: Cigarettes, Pipe Smokeless tobacco: Never Vaping Use Vaping Use: Never used Substance Use Topics Alcohol use: Yes Drug use: Yes Comment: occ pot FAMILY HISTORY: FAMILY HISTORY Problem Relation Age of Onset Hypertension Mother Diabetes Father Alzheimer's Disease Father Stroke Father Hypertension Father other (Other) Sister 50 frontal temporal dementia None Sister None Brother Lipids Sister Thyroid Sister None Daughter None Daughter REVIEW OF SYMPTOMS: The review of systems data was entered by the nurse and reviewed by ks Nursing Notes: Nai Limon LPN 08/30/2022 9:50 AM Signed REVIEW OF SYSTEMS: General: The patient notes fatigue, notes weight loss, denies weight gain, denies feeling hot, and denies feelings of cold. Eyes: The patient denies glaucoma, denies eye injury/surgery, does not wear glasses or contacts. Ear/Nose/Throat: The patient denies allergies, denies hayfever, notes ear infections, and notes bloody noses. Cardiovascular: The patient notes chest pain, notes heart disease, denies high blood pressure,notes cardiac stent, denies prior heart attack, denies irregular heart beat, denies high cholesterol, denies poor circulation, denies heart failure, other cardiac issues, notes claudication, denies cold feet, notes peripheral arterial stent. Respiratory: The patient denies tuberculosis, denies pneumonia, notes frequent cough, denies pulmonary embolism, notes shortness of breath, and denies coughing up blood. Gastrointestinal: The patient denies difficulty swallowing, denies acid reflux, denies ulcers, denies vomiting, denies jaundice/hepatitis, denies gallbladder problems, denies black or tarry stools, denies hemorrhoids, denies bleeding from rectum, denies diverticulitis, notes constipation, notes diarrhea, denies loss of stool control, and denies hernias. Kidney/Bladder: The patient notes kidney stones, notes urine infections, and notes bloody urine. Skin: The patient notes a history of skin cancer, denies bleeding/changing moles, and notes a history of skin rash. Neurologic: The patient denies a history of epilepsy/convulsions, notes headaches, denies head/spinal injuries, and denies stroke/TIA. Psychiatric: The patient denies psychiatric medications, denies depression, and denies voices, denies substance abuse. Endocrine: The patient denies thyroid disorders, denies diabetes, and denies hormonal problems. Hematologic: The patient notes a history of bruising, notes bleeding, and denies anemia, notes blood clots. Infections: The patient denies a history of measles and mumps, denies rheumatic fever, and denies sexually transmitted diseases. Musculoskeletal: The patient notes back pain/injury, notes back problems, denies sciatica, notes knee/foot trouble, denies arthritis, or denies gout. When was patient's last Mammogram screening? N/A Last Colonoscopy: 2008 Nai Limon LPN I have confirmed and edited as necessary, the PFSH and ROS obtained by others. Johnna Giang PA-C PHYSICAL EXAMINATION: General: +accelerated speech and flight of ideas. The patient is 72 year old male, well nourished, well hydrated in no acute distress. The patient is oriented to time, place, and person. VITALS: Blood pressure 98/54, pulse 80, temperature 36.1 C (97 F), height 188 cm (6' 2 ), weight 76.2 kg (168 lb), SpO2 99 %. Body mass index is 21.57 kg/m . HEENT: Normal cephalic, ataumatic, pupils are equally round, sclera are anicteric, mucous membranes are moist, oropharynx is clear. Neck has no masses, asymmetry or lymphadenopathy. Respiratory: Clear to auscultation and percussion. Normal respiratory excursion and pattern. Cardiac: Examination is regular rate and rhythm. Normal S1/S2 Abdominal exam: Soft, nontender, with no palpable masses. No hepatosplenomegaly. No palpable hernias. Extremities: no clubbing, cyanosis or edema. No adenopathy. LABORATORY VALUES: As Noted RADIOLOGIC STUDIES: As Noted Assessment IMPRESSION: encounter for screening colonoscopy PLAN: I have reviewed my findings with the surgeon. Will plan for lower endoscopy. We discussed the risks and benefits of the planned endoscopy. I have informed the patient that complications can occur including failure to complete the endoscopy and perforation. The patient had the opportunity to ask questions concerning the planned endoscopy. My staff has also explained the procedure to the patient in understandable terms and has given the patient printed material concerning the procedure. The patient freely consents to surgery. Patient to remain on anticoagulation for his endoscopy procedure with our surgeon I plan to use Golytely bowel preparation The patient has medical comorbidities for which we will plan for the procedure to be performed under [facility]. Cardiac history ICD in place, will require PACC review Diagnoses: (Z12.11) Encounter for screening for malignant neoplasm of colon (primary encounter diagnosis) (Z79.01) On continuous oral anticoagulation (Z95.810) ICD (implantable cardioverter-defibrillator) in place Consultation requested by Dr. Patricia Burden for an opinion regarding screening colonoscopy. My final recommendations will be communicated back to the requesting physician by way of shared Medical record or letter to requesting physician via [place] mail. Johnna Giang PA-C documented in this encounter [facility] 08-30-2022 Nurse Note REVIEW OF SYSTEMS: General: The patient notes fatigue, notes weight loss, denies weight gain, denies feeling hot, and denies feelings of cold. Eyes: The patient denies glaucoma, denies eye injury/surgery, does not wear glasses or contacts. Ear/Nose/Throat: The patient denies allergies, denies hayfever, notes ear infections, and notes bloody noses. Cardiovascular: The patient notes chest pain, notes heart disease, denies high blood pressure,notes cardiac stent, denies prior heart attack, denies irregular heart beat, denies high cholesterol, denies poor circulation, denies heart failure, other cardiac issues, notes claudication, denies cold feet, notes peripheral arterial stent. Respiratory: The patient denies tuberculosis, denies pneumonia, notes frequent cough, denies pulmonary embolism, notes shortness of breath, and denies coughing up blood. Gastrointestinal: The patient denies difficulty swallowing, denies acid reflux, denies ulcers, denies vomiting, denies jaundice/hepatitis, denies gallbladder problems, denies black or tarry stools, denies hemorrhoids, denies bleeding from rectum, denies diverticulitis, notes constipation, notes diarrhea, denies loss of stool control, and denies hernias. Kidney/Bladder: The patient notes kidney stones, notes urine infections, and notes bloody urine. Skin: The patient notes a history of skin cancer, denies bleeding/changing moles, and notes a history of skin rash. Neurologic: The patient denies a history of epilepsy/convulsions, notes headaches, denies head/spinal injuries, and denies stroke/TIA. Psychiatric: The patient denies psychiatric medications, denies depression, and denies voices, denies substance abuse. Endocrine: The patient denies thyroid disorders, denies diabetes, and denies hormonal problems. Hematologic: The patient notes a history of bruising, notes bleeding, and denies anemia, notes blood clots. Infections: The patient denies a history of measles and mumps, denies rheumatic fever, and denies sexually transmitted diseases. Musculoskeletal: The patient notes back pain/injury, notes back problems, denies sciatica, notes knee/foot trouble, denies arthritis, or denies gout. When was patient's last Mammogram screening? N/A Last Colonoscopy: 2008 Nai Limon LPN documented in this encounter [facility] 08-02-2022 Miscellaneous Notes MRI referral placed for [facility]. Adriana Craft LPN Una with [facility] Precert called in and reports provider needs to initiate the authorization for the MRI they ordered through the [facility]. documented in this encounter [facility] 08-01-2022 Miscellaneous Notes Fax received from Heraclio Garcia requesting a signed ammonia level lab order from Dr. Horn. As order was previously placed, order with electronic signature printed and faxed back as requested. YASSINE Lopez documented in this encounter [facility] 07-29-2022 Miscellaneous Notes It was ordered on review of visit. Will order again at this time. Tyshawn Horn MD I went to the lab and it is to late to add this on, will have to get redrawn. Also I don't think it was ordered. Only vit b12, tsh and t4/free. Adriana Craft LPN documented in this encounter [facility] 07-22-2022 Note HNO ID: [id number] Author: Tyshawn Horn Jr., MD Service: ? Author Type: Physician Type: Progress Notes Filed: 07/22/2022 6:07 PM Note Text: NEW PATIENT (CONSULT) HISTORY AND PHYSICAL EXAM PRIMARY CARE PHYSICIAN: Patricia Burden MD REASON FOR CONSULT: Dementia REFERRING PHYSICIAN: No ref. provider found CHIEF COMPLAINT: Possible dementia Consultation requested by No ref. provider found for an opinion regarding chief complaint of Patient presents with: New Patient Evaluation and my final recommendations will be communicated back to the requesting physician by way of shared medical record or letter via [place] mail. HISTORY OF PRESENT ILLNESS: Jimmy Mercado is a 72 year old male, BMI 21.82 kg/m2 with a PMH significant for that below. Currently at [facility]. Presents today due to a reported low score on the SLUMS test at [facility]. Pt immediately with pressured speech and poor focus. Daughters with pt. Pt reportedly in psychiatric hospitals for prolonged duration. Dx of bipolar. Going in and out of hospitals and mood never stabilized. Daughters states multiple forms of dementia that run in the family. They states psychiatry wants a full evaluation to see if something neurologic going on. There is mention in records provided by daughters that there was also dx of schizoaffective disorder. Cigars calm patient down. Ten minutes into the interview, pt asking to leave to smoke a pipe. Daughters feel I will not get answers from him. Daughters feel pt has been having symptoms of dementia since before the pandemic. Younger sister just dx'd with frontotemp lobe dementia. Currently he cannot have a conversation, does not answer questions, short term memory deficits - will have conversation earlier in the day and then cannot remember it, paranoid thoughts. Daughters indicate their grandfather from Alzheimer's dementia. They states every psychiatrist said that they have stabilized mood but that there is something else going on and needs evaluation. First time he was hospitalized and pink slipped years ago, but felt that there were a lot of cognitive things that were not being corrected. There is also reports of his being lost driving and being forgetful prior to psych decline. MODIFIED MOCA: Immediate recall: 08/09 Orientation: July 21, 2022, Friday, Eli 09/10 Number repeat: 2/2 Sentence repeat: 2/2 Similar objects: 1/2 Serial 7s: [id number] 06/07 Delayed recall: 06/09 Clock drawing: Does not put hands on clock: 2/3 Patient often goes on tangent with pressured speech, repeating himself historical factors. Able to abruptly give out history of historic sports and music. Pt reporting that he is sleeping well now. REVIEW OF SYSTEMS GENERAL:No weight loss, malaise or fevers. HEENT:Negative for frequent or significant headaches, No changes in hearing or vision, no nose bleeds or other nasal problems NECK:Negative for lumps, goiter, pain and significant neck swelling RESPIRATORY: Negative for cough, wheezing or shortness of breath. CARDIOVASCULAR: Negative for chest pain, leg swelling or palpitations. GASTROINTESTINAL: Negative for abdominal discomfort, blood in stools or black stools or change in bowel habits GENITOURINARY: No history of dysuria, frequency or incontinence MUSCULOSKELETAL: Negative for joint pain or swelling, back pain or muscle pain. NEUROLOGIC:Negative for focal numbness or weakness, headaches and dizziness or syncope, vision changes, speech/language changes, changes in gait or falls -- besides those complaints as above in HPI. SKIN:Negative for lesions, rash, and itching. PSYCHIATRIC: See HPI. HEMATOLOGIC/LYMPHATIC/IMMUNOLOGIC: Negative for prolonged bleeding, bruising easily or swollen nodes. ENDOCRINE: Negative for cold or heat intolerance, polyuria, polydipsia and goiter. The remainder of the ROS was reviewed and is negative. LAB/IMAGING: Reviewed and include: WBC (k/uL) Date Value 04/16/2022 9.13 RBC (m/uL) Date Value 04/16/2022 4.76 Hemoglobin (g/dL) Date Value 04/16/2022 14.7 Hematocrit (%) Date Value 04/16/2022 43.3 MCV (fL) Date Value 04/16/2022 91.0 MCH (pg) Date Value 04/16/2022 30.9 MCHC (g/dL) Date Value 04/16/2022 33.9 RDW-CV (%) Date Value 04/16/2022 12.2 Platelet Count (k/uL) Date Value 04/16/2022 212 MPV (fL) Date Value 04/16/2022 10.3 Glucose (mg/dL) Date Value 04/16/2022 85 BUN (mg/dL) Date Value 04/16/2022 16 Creatinine (mg/dL) Date Value 04/16/2022 0.87 Sodium (mmol/L) Date Value 04/16/2022 135 (L) Potassium (mmol/L) Date Value 04/16/2022 4.6 Chloride (mmol/L) Date Value 04/16/2022 101 CO2 (mmol/L) Date Value 04/16/2022 22 Protein, Total (g/dL) Date Value 10/19/2020 6.9 Albumin (g/dL) Date Value 10/19/2020 4.0 Calcium, Total (mg/dL) Date Value 04/16/2022 9.9 Alkaline Phosphatase (U/L) Date Value 10/20/19 (more content not included)... [facility] 07-22-2022 History of Present illness Narrative NEW PATIENT (CONSULT) HISTORY AND PHYSICAL EXAM PRIMARY CARE PHYSICIAN: Patricia Burden MD REASON FOR CONSULT: Dementia REFERRING PHYSICIAN: No ref. provider found CHIEF COMPLAINT: Possible dementia Consultation requested by No ref. provider found for an opinion regarding chief complaint of Patient presents with: New Patient Evaluation and my final recommendations will be communicated back to the requesting physician by way of shared medical record or letter via [place] mail. HISTORY OF PRESENT ILLNESS: Jimmy Mercado is a 72 year old male, BMI 21.82 kg/m2 with a PMH significant for that below. Currently at [facility]. Presents today due to a reported low score on the SLUMS test at [facility]. Pt immediately with pressured speech and poor focus. Daughters with pt. Pt reportedly in psychiatric hospitals for prolonged duration. Dx of bipolar. Going in and out of hospitals and mood never stabilized. Daughters states multiple forms of dementia that run in the family. They states psychiatry wants a full evaluation to see if something neurologic going on. There is mention in records provided by daughters that there was also dx of schizoaffective disorder. Cigars calm patient down. Ten minutes into the interview, pt asking to leave to smoke a pipe. Daughters feel I will not get answers from him. Daughters feel pt has been having symptoms of dementia since before the pandemic. Younger sister just dx'd with frontotemp lobe dementia. Currently he cannot have a conversation, does not answer questions, short term memory deficits - will have conversation earlier in the day and then cannot remember it, paranoid thoughts. Daughters indicate their grandfather from Alzheimer's dementia. They states every psychiatrist said that they have stabilized mood but that there is something else going on and needs evaluation. First time he was hospitalized and pink slipped years ago, but felt that there were a lot of cognitive things that were not being corrected. There is also reports of his being lost driving and being forgetful prior to psych decline. MODIFIED MOCA: Immediate recall: 08/09 Orientation: July 21, 2022, Friday, Eli 09/10 Number repeat: 05/09 Sentence repeat: 05/09 Similar objects: 04/08 Serial 7s: [id number] 06/07 Delayed recall: 06/09 Clock drawing: Does not put hands on clock: 05/10 Patient often goes on tangent with pressured speech, repeating himself historical factors. Able to abruptly give out history of historic sports and music. Pt reporting that he is sleeping well now. REVIEW OF SYSTEMS GENERAL:No weight loss, malaise or fevers. HEENT:Negative for frequent or significant headaches, No changes in hearing or vision, no nose bleeds or other nasal problems NECK:Negative for lumps, goiter, pain and significant neck swelling RESPIRATORY: Negative for cough, wheezing or shortness of breath. CARDIOVASCULAR: Negative for chest pain, leg swelling or palpitations. GASTROINTESTINAL: Negative for abdominal discomfort, blood in stools or black stools or change in bowel habits GENITOURINARY: No history of dysuria, frequency or incontinence MUSCULOSKELETAL: Negative for joint pain or swelling, back pain or muscle pain. NEUROLOGIC:Negative for focal numbness or weakness, headaches and dizziness or syncope, vision changes, speech/language changes, changes in gait or falls -- besides those complaints as above in HPI. SKIN:Negative for lesions, rash, and itching. PSYCHIATRIC: See HPI. HEMATOLOGIC/LYMPHATIC/IMMUNOLOGIC: Negative for prolonged bleeding, bruising easily or swollen nodes. ENDOCRINE: Negative for cold or heat intolerance, polyuria, polydipsia and goiter. The remainder of the ROS was reviewed and is negative. LAB/IMAGING: Reviewed and include: WBC (k/uL) Date Value 04/16/2022 9.13 RBC (m/uL) Date Value 04/16/2022 4.76 Hemoglobin (g/dL) Date Value 04/16/2022 14.7 Hematocrit (%) Date Value 04/16/2022 43.3 MCV (fL) Date Value 04/16/2022 91.0 MCH (pg) Date Value 04/16/2022 30.9 MCHC (g/dL) Date Value 04/16/2022 33.9 RDW-CV (%) Date Value 04/16/2022 12.2 Platelet Count (k/uL) Date Value 04/16/2022 212 MPV (fL) Date Value 04/16/2022 10.3 Glucose (mg/dL) Date Value 04/16/2022 85 BUN (mg/dL) Date Value 04/16/2022 16 Creatinine (mg/dL) Date Value 04/16/2022 0.87 Sodium (mmol/L) Date Value 04/16/2022 135 (L) Potassium (mmol/L) Date Value 04/16/2022 4.6 Chloride (mmol/L) Date Value 04/16/2022 101 CO2 (mmol/L) Date Value 04/16/2022 22 Protein, Total (g/dL) Date Value 10/19/2020 6.9 Albumin (g/dL) Date Value 10/19/2020 4.0 Calcium, Total (mg/dL) Date Value 04/16/2022 9.9 Alkaline Phosphatase (U/L) Date Value 10/19/2020 51 Bilirubin, Total (mg/dL) Date Value 10/19/2020 0.3 AST (U/L) Date Value 10/19/2020 19 ALT (U/L) Date Value 10/19/2020 16 Hep C Antibody IA (no units) Date Value 09/25/2018 Negative MEDICATIONS: apixaban (ELIQUIS) 5 mg tab(s)^Take 1 tablet by mouth twice daily.^Disp: 180 tablet^Rfl: 3 metoprolol succinate ER (TOPROL XL) 50 mg 24 hr tablet^Take 1 tablet by mouth once daily.^Disp: 90 tablet^Rfl: 3 sacubitril-valsartan (ENTRESTO) 49-51 mg tablet^Take 1 tablet by mouth twice daily.^Disp: 60 tablet^Rfl: 11 ezetimibe (ZETIA) 10 mg tablet^Take 1 tablet by mouth once daily.^Disp: 90 tablet^Rfl: 3 paliperidone palmitate (INVEGA SUSTENNA) 156 mg/mL syrg injection^Inject 1 mL intramuscularly.^Disp: ^Rfl: omeprazole (PRILOSEC) 20 mg capsule^Take 1 capsule by mouth once daily.^Disp: ^Rfl: Saw [place] Fruit 450 mg cap^Take by mouth once daily.^Disp: ^Rfl: dapagliflozin (FARXIGA) 10 mg tablet^Take 1 tablet by mouth daily with breakfast.^Disp: 90 tablet^Rfl: 3 digoxin (LANOXIN) 125 mcg (0.125 mg) tablet^Take 1 tablet by mouth once daily.^Disp: 45 tablet^Rfl: 3 bempedoic acid (NEXLETOL) 180 mg tablet^Take 1 tablet (180 mg) by mouth daily at bedtime.^Disp: 90 tablet^Rfl: 3 spironolactone (ALDACTONE) 25 mg tablet^Take 1 tablet by mouth once daily.^Disp: 30 tablet^Rfl: 11 acetaminophen (TYLENOL) 325 mg tablet^Take 2 tablets by mouth every 6 hours as needed for pain.^Disp: ^Rfl: nitroglycerin sublingual (NITROSTAT) 0.4 mg SL tablet^Dissolve 1 tablet under the tongue as needed for Chest Pain. If no pain relief call 911.^Disp: 1 tablet^Rfl: 1 cholecalciferol (VITAMIN D3) 5,000 unit tab^Take 2,000 Units by mouth once daily. ^Disp: ^Rfl: Aspirin 81 mg ORAL Tab^Take one(1) tablet daily.^Disp: ^Rfl: 0 HISTORIES PAST MEDICAL HISTORY Diagnosis Date Acute gastritis without mention of hemorrhage Allergic rhinitis, cause 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 Atherosclerosis of [place] arteries of the extremities with intermittent claudication 03/24/2008 left Backache, 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 Bipolar affective disorder, currently manic, moderate ([facility]) 2010 hospitalized at [facility] 04/06/2010-04/27/2010 Bipolar disorder, unspecified (HCC) 03/24/2008 Cardiomyopathy in other diseases classified elsewhere 03/24/2008 COPD (chronic obstructive pulmonary disease) ([facility]) Esophageal reflux 03/24/2008 Hx of CABG 2007 Impotence of organic origin 03/24/2008 Ischemic cardiomyopathy 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HCC) Loss of weight 03/24/2008 Loss of weight Lymphoma in remission ([facility]) chemo and radiation Nausea alone Nonorganic sleep disorder, 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 NSTEMI (non-ST elevated myocardial infarction) ([facility]) s/p 3 stents 2013 Obsessive-compulsive disorders 03/24/2008 OCD (obsessive compulsive disorder) Other malaise and fatigue 03/24/2008 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, face, and neck 03/24/2008 PAD (peripheral artery disease) ([facility]) s/p right iliac stent 2006 Panic disorder without agoraphobia 03/24/2008 Peripheral vascular disease, unspecified ([facility]) 03/24/2008 Pure hypercholesterolemia 03/24/2008 Tobacco use disorder 03/24/2008 Unspecified constipation FAMILY HISTORY Problem Relation Age of Onset Hypertension Mother Diabetes Father Alzheimer's Disease Father Stroke Father Hypertension Father other (Other) Sister 50 frontal temporal dementia None Sister None Brother Lipids Sister Thyroid Sister None Daughter None Daughter SOCIAL HISTORY Social History Tobacco Use Smoking status: Every Day Packs/day: 2.00 Years: 50.00 Pack years: 100.00 Types: Cigarettes Smokeless tobacco: Never Substance Use Topics Alcohol use: Yes Drug use: Yes Comment: occ pot PHYSICAL EXAMINATION BP 100/67 Pulse 82 Temp 36.6 C (97.8 F) Resp 20 Wt 79.2 kg (174 lb 9.6 oz) SpO2 97% BMI 21.82 kg/m GENERAL EXAM: General appearance: NAD, pleasant but pressured speech, confabulation, frequently off on unrelated tangent. HEENT: NC/AT, nasal congestion absent, no oral lesions, membranes moist. NECK: No masses, supple. Lungs: CTA bilaterally. CV: RRR nl S1, S2. No carotid bruits. Extr: No cyanosis, clubbing or edema. Skin: Cool to touch. NEUROLOGICAL EXAM: General: Awake, alert, oriented x3 (person,place,time), speech fluent, no dysarthria; comprehension, naming, repetition intact. MOCA as above. CN: PERRL, fundi without papilledema, EOMI and without nystagmus, VFF to confrontation, facial sensation and strength are normal and symmetric, hearing is intact to finger rub bilaterally, palate and tongue movements are intact and symmetric. SCM and trapezius strength normal. Motor: Normal tone, bulk and strength (5/5) bilaterally (throughout extremities x4). Coordination: FNF, MERCEDES, HTS intact. No tremors. Sensation: Light touch intact throughout. No evidence of neglect. Gait: Stable with normal stride and arm swing. Assessment and Plan: ASSESSMENT/PLAN: 1. Dementia without behavioral disturbance (HCC) - ICD9: 294.20, ICD10: F03.90 (primary diagnosis) 2. History of bipolar disorder - ICD9: V11.1, ICD10: Z86.59 3. Confabulation - ICD9: 780.93, ICD10: R41.3 Patient with long standing history of cognitive impairment and atypical behaviors as above. Non focal neurologic exam and overall his performance on a modified MOCA is not significantly impaired given his behaviors throughout the interview that resulted in poor focus and attention. It is difficult to determine at this time whether patient's cognitive impairments do in fact represent a progressive dementia or if in fact they are due to pseudodementia due to known history of bipolar disorder and possible schizoaffective disorder. Explained to pateint's daughters further testing that might help, but that will not result in a definite diagnosis of a progressive dementia such as Alzheimer's. We discussed options and pt is not willing to go north of [place] limiting workup. Thus, for now will attempt to get MRI brain with volumetric study to compare pt's brain with those of age group to determine if significant atrophy while also evaluating for NPH and vascular disease. If MRI unremarkable and not showing significant atrophy will likely hold on starting a medication such as Nameda or Aricept. However, if findings concerning for significant atrophy, and given behavioral disorders, will likely start on Namenda. Will also check for other causes such as metabolic and will check TSH, T4, B12, and Ammonia. Pt and his daughters agree with plan. Pt will follow up after MRI brain complete. Note pt does not drive and lives in a SNF. Note pt with pacer and will need cleared by MRI prior to study and in turn will need pacer tech present at time of MRI. Tyshawn Horn MD I spent a total of 60 minutes on the date of the service which included preparing to see the patient, [id number] patient care, completing clinical documentation, obtaining and/or reviewing separately obtained history, performing a medically appropriate examination, counseling and educating the patient/family/caregiver, ordering medications, tests, or procedures, and communicating results to the patient/family/caregiver. documented in this encounter [facility] 06-20-2022 Miscellaneous Notes TC to patients daughter Damion for more information, she states that patient has had bi-polor episodes most of his life and recently had severe episode, [id number] evaluated patient and he was given medication to help stabilize his moods but it was not helping with his dementia. Patient had SLUMS test in which he received a 16. PCP from [facility] (Heraclio Garcia) recommending a brain scan. Will request SLUMS results prior to appointment. Akosua Cleveland LPN Patient's guardian, Damion, called to request an appointment with neurology in [place]. The patient is currently under the care of a [facility]. [id number] performed a slums testing resulting in a low score. It was suggested to the family to have the patient be evaluated by a neurologist for dementia. Patient is scheduled to be seen on 07/29/22. Please notify the family if there is an additional intake procedures with the [facility] brain health department per the scheduling decision tree. documented in this encounter [facility] 06-10-2022 Miscellaneous Notes Images from the original note were not included. Marianela Weeks MD You 3 days ago Thanks for calling! I would continue current medications. Can split metoprolol into 1/2 and take BID. Viktor Called and spoke to Nurse at [facility], Gave her the above information, she verbalized understanding. Reema Johnson RN June 10, 2022 9:42 AM Images from the original note were not included. MD Madelaine Diallo Adm; i J3-4 Opd Nurses; Terra Lugo 3 hours ago (8:05 AM) Nurses do you mind calling the patient's daughter? Update with BP trends and current dosing of HF meds. Thank you! Called and spoke to the daughter of the patient, She states that the patient has been taking the lower dose of the entresto; 24-26 mg twice daily. She states he is refusing the metoprolol since he feels the dosage is too high ( Prescribed is the 50 mg) She did not have specific blood pressures. Did call the [facility] and spoke to the nurse of the patient spoke to the nurse, Bps without the metoprolol and low dose entresto, Today: 132/83 HR 73 Yesterday: 121/80 pt does have dizziness when BP is below 115 systolic and continues to refuse the metoprolol Reema Johnson RN June 07, 2022 3:46 PM Received call from pt daughter who reports pt has moved and is now living @ [facility]. Marah reports pt is having a dementia eval and she feels [facility] may need to be his permanent residence but will wait on Eval results. Marah requests this information is kept private as they have not discussed with pt. Marah is requesting Lab results are forwarded to [facility] at [phone] Fax [facility] Marah reports she and her sister are medical POA for pt. She will update address info via travelmob. Marah would like a call back re: dosing for Metoprolol and Entresto. Pt is still struggling w/ low BP. Marah can be reached at [phone] She feels a call will be needed to [facility] with update in medication. Thank you Madelaine documented in this encounter [facility] 05-13-2022 Miscellaneous Notes Images from the original note were not included. Javid Ang RPh You; Hanane Acuña RPh 10 minutes ago (3:29 PM) No interaction that I can see which would affect the efficacy of Invega. Possible attenuation of the hyperglycemic risk associated with Invega when using SGLT2 inhibitors, but that would be a good thing and wouldn't reduce the effectiveness of Invega. Called patient and provided above information. Patient verbalizes understanding. Deidra Miner RN May 13, 2022 3:43 PM Returned call to patient's daughter, Marah. The patients blood pressures have been running on the lower side since his medications were increased at the last office visit. He is currently at an assisted living, and the nurse has reported to Marah that his SBP in the low 90's and the patient has been feeling dizzy. ~92/52 He also had an episode of CP over the week. It didn't last long until it resolved on its own. He did not seek evaluation in the ED. Confirmed patient is taking: Metoprolol succinate 50 mg daily Entresto 49-51 mg BID Spironolactone 25 mg daily Farxiga 10mg daily Digoxin 125 mcg daily His daughter also has concerns about the interaction between Invega and Farxiga. She states that the effects of the Invega has stopped working around the same time that he started taking Farxiga. Deidra Miner RN May 13, 2022 12:[address] Weeks: He can hold entresto for 24 hours and then restart with 1/2 tablet twice a day if his blood pressure have come up. He should seek evaluation in the ED if his chest pain returns. Called patient's daughter and provided above information. Marah verbalizes understanding and is going to call the assisted living facility. Deidra Miner RN May 13, 2022 1:41 PM Patient has been identified by name and date of : Yes Reason for call: Symptoms: Patients daughter called stated that he's been dizzy,light headed and low bp. And is wondering if his medication needs to be changed. new car salesperson: daughter Phone number to reach you at: [phone] Terra Lugo documented in this encounter [facility] 04-16-2022 Note HNO ID: [id number] Author: Marianela Weeks MD Service: ? Author Type: Physician Type: Progress Notes Filed: 04/16/2022 9:21 PM Note Text: [facility] SECTION OF HEART FAILURE and CARDIAC TRANSPLANT MEDICINE OUTPATIENT VISIT DATE April 16, 2022 OUTPATIENT VISIT TYPE Established Patient PRIMARY CARE PHYSICIAN: MD Narcisa Damon E [facility] [address] [place] [address] CHIEF COMPLAINT: Follow-up HISTORY OF PRESENT ILLNESS: Jimmy Mercado is a 72 year old male with ischemic cardiomyopathy (LVEF 30%, LVEDD 5.8cm, normal RV function), coronary artery disease s/p CABG 2006 and PCI 2013, PAD s/p Right iliac stent in 2006, atrial flutter, multiple DVTs , LV and RV thrombi (resolved), dyslipidemia, statin intolerance, and 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 Appears stable from HF standpoint. Since last visit, he was hospitalized for psychiatric reasons and now lives at [facility]. At the [facility], he is provided with medications. HF Nursing Assessment: Interim Hospitalizations and/or ER visits:no Chest Pain: no Skipping or irregular heartbeats: no Shortness of breath at rest: no Shortness of breath with activity: no Cough: yes Waking up in the middle of the night gasping for air: no Lightheadedness or dizziness: yes, first thing in the morning Feeling like you are going to pass out: no Actually passing out: no Poor energy level: no Unintentional weight gain: no Unintentional weight loss: no Swelling in your legs,feet, abdomen: no Filling up quickly when you eat: no PAST MEDICAL HISTORY Diagnosis Date Acute gastritis without mention of hemorrhage Allergic rhinitis, cause 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 Atherosclerosis of [place] arteries of the extremities with intermittent claudication 03/24/2008 left Backache, 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 Bipolar affective disorder, currently manic, moderate ([facility]) 2010 hospitalized at [facility] 04/06/2010-04/27/2010 Bipolar disorder, unspecified ([facility]) 03/24/2008 Cardiomyopathy in other diseases classified elsewhere 03/24/2008 COPD (chronic obstructive pulmonary disease) ([facility]) Esophageal reflux 03/24/2008 Hx of CABG 2007 Impotence of organic origin 03/24/2008 Ischemic cardiomyopathy 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HCC) Loss of weight 03/24/2008 Loss of weight Lymphoma in remission (HCC) chemo and radiation Nausea alone Nonorganic sleep disorder, 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 NSTEMI (non-ST elevated myocardial infarction) ([facility]) s/p 3 stents 2014 Obsessive-compulsive disorders 03/24/2008 OCD (obsessive compulsive disorder) Other malaise and fatigue 03/24/2008 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, face, and neck 03/24/2008 PAD (peripheral artery disease) ([facility]) s/p right iliac stent 2006 Panic disorder without agoraphobia 03/24/2008 Peripheral vascular disease, unspecified ([facility]) 03/24/2008 Pure hypercholesterolemia 03/24/2008 Tobacco use disorder 03/24/2008 Unspecified constipation PAST SURGICAL HISTORY Procedure Laterality Date COLONOSCOPY FLX DX W/COLLJ SPEC WHEN PFRMD 09/16/08 CORONARY ARTERY BYPASS 5 CORONARY VENOUS GRAFTS 01/11 Emily Lamb EGD TRANSORAL BIOPSY SINGLE/MULTIPLE 09/16/08 ESOPHAGOGASTRODUODENOSCOPY TRANSORAL DIAGNOSTIC 1988 [facility] EGD PAST SURGICAL HISTORY OF nasal septum surgery PAST SURGICAL HISTORY OF biopsy- neck mass- lymphoma STENT ARTERIAL EXTREMITY 09/11 Right iliac a stent SOCIAL HISTORY Social History Tobacco Use Smoking status: Every Day Packs/day: 2.00 Years: 50.00 Pack years: 100.00 Types: Cigarettes Smokeless tobacco: Never Substance Use Topics Alcohol use: Yes Drug use: Yes Comment: occ pot FAMILY HISTORY Problem Relation Age of Onset Hypertension Mother Diabetes Father Alzheimer's Disease Father Stroke Father Hypertension Father other (Other) Sister 50 frontal temporal dementia None Sister None Brother Lipids Sister Thyroid Sister None Daughter None Daughter ALLERGIES: ALLERGIES No Known Allergies CURRENT MEDICATIONS: paliperidone palmitate (INVEGA SUSTENNA) 156 mg/mL syrg injectionInject 1 mL intramuscularly.Disp: Rfl: omeprazole (PRILOSEC) 20 mg capsuleTake 1 capsule by mouth once daily.Disp: Rfl: Saw [place] Fruit 450 mg capTake by mouth once daily.Disp: Rfl: dapagliflozin (FARXIGA) 10 mg tabletTake 1 tablet by mouth daily with breakfast.Disp: 90 tabletRfl: 3 digoxin (LANOXIN) 125 mcg (0.125 mg) tabletTake 1 tablet by mouth once daily.Disp: 45 tabletRfl: 3 bempedoic acid (NEXLETOL) 180 mg tabletTake 1 tablet (180 mg) by mouth daily at bedtime.Disp: 90 tabletRfl: 3 metoprolol succinate ER (TOPROL XL) 25 mg 24 hr tabletTake 1 tablet by mouth once daily.Disp: 30 tabletRfl: 11 sacubitril-valsartan (ENTRESTO) 24-26 mg tabletTake 1 tablet by (more content not included)... [facility] 04-16-2022 Instructions Marianela Weeks MD - 04/16/2022 2:20 PM EST It was good to see you today. Overall you look stable from a heart failure perspective. However, your blood pressure is on the higher side- and that gives me room to increase some of the medications that are very beneficial in heart failure. I recommend the followin) Increase metoprolol from 25mg to 50mg daily 2) In 1 week we will further increase the Entresto from 24-26mg twice a day to 49-51mg twice a day 3) Please check blood pressure at least 1-2x per week while we are adjusting medications 4) If blood pressure is below 100mmHg on the top number or you are dizzy lightheaded, please let me know and we can back down on the doses if needed Will add Zetia 10mg daily to further lower the LDL (bad cholesterol), aim for LDL < 70 If LDL does not go below 70, will send you to cardiac prevention to discuss injectable cholesterol lowering medicine (PCSK9 inhibitors) Will add peripheral vascular studies and send you to Dr. Gabriel See you in 3 months. Marianela Weeks MD, [facility] Staff Warehouse Administrator, Advanced Heart Failure and Transplantation [facility] 04/16/2022 2:20 PM documented in this encounter [facility] 04-16-2022 History of Present illness Narrative Images from the original note were not included. [facility] SECTION OF HEART FAILURE and CARDIAC TRANSPLANT MEDICINE OUTPATIENT VISIT DATE April 16, 2022 OUTPATIENT VISIT TYPE Established Patient PRIMARY CARE PHYSICIAN: MD Narcisa Damon [facility] [address] [id number] CHIEF COMPLAINT: Follow-up HISTORY OF PRESENT ILLNESS: Jimmy Mercado is a 72 year old male with ischemic cardiomyopathy (LVEF 30%, LVEDD 5.8cm, normal RV function), coronary artery disease s/p CABG 2006 and PCI 2013, PAD s/p Right iliac stent in 2006, atrial flutter, multiple DVTs , LV and RV thrombi (resolved), dyslipidemia, statin intolerance, and 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 Appears stable from HF standpoint. Since last visit, he was hospitalized for psychiatric reasons and now lives at [facility]. At the [facility], he is provided with medications. HF Nursing Assessment: Interim Hospitalizations and/or ER visits:no Chest Pain: no Skipping or irregular heartbeats: no Shortness of breath at rest: no Shortness of breath with activity: no Cough: yes Waking up in the middle of the night gasping for air: no Lightheadedness or dizziness: yes, first thing in the morning Feeling like you are going to pass out: no Actually passing out: no Poor energy level: no Unintentional weight gain: no Unintentional weight loss: no Swelling in your legs,feet, abdomen: no Filling up quickly when you eat: no PAST MEDICAL HISTORY Diagnosis Date Acute gastritis without mention of hemorrhage Allergic rhinitis, cause 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 Atherosclerosis of [place] arteries of the extremities with intermittent claudication 03/24/2008 left Backache, 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 Bipolar affective disorder, currently manic, moderate ([facility]) 2011 hospitalized at [facility] 04/06/2010-04/27/2010 Bipolar disorder, unspecified ([facility]) 03/24/2008 Cardiomyopathy in other diseases classified elsewhere 03/24/2008 COPD (chronic obstructive pulmonary disease) ([facility]) Esophageal reflux 03/24/2008 Hx of CABG 2006 Impotence of organic origin 03/24/2008 Ischemic cardiomyopathy 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[facility]) Loss of weight 03/24/2008 Loss of weight Lymphoma in remission ([facility]) chemo and radiation Nausea alone Nonorganic sleep disorder, 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 NSTEMI (non-ST elevated myocardial infarction) ([facility]) s/p 3 stents 2013 Obsessive-compulsive disorders 03/24/2008 OCD (obsessive compulsive disorder) Other malaise and fatigue 03/24/2008 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, face, and neck 03/24/2008 PAD (peripheral artery disease) ([facility]) s/p right iliac stent 2006 Panic disorder without agoraphobia 03/24/2008 Peripheral vascular disease, unspecified ([facility]) 03/24/2008 Pure hypercholesterolemia 03/24/2008 Tobacco use disorder 03/24/2008 Unspecified constipation PAST SURGICAL HISTORY Procedure Laterality Date COLONOSCOPY FLX DX W/COLLJ SPEC WHEN PFRMD 09/16/08 CORONARY ARTERY BYPASS 5 CORONARY VENOUS GRAFTS 01/11 Emily Lamb EGD TRANSORAL BIOPSY SINGLE/MULTIPLE 09/16/08 ESOPHAGOGASTRODUODENOSCOPY TRANSORAL DIAGNOSTIC 1987 [facility] EGD PAST SURGICAL HISTORY OF nasal septum surgery PAST SURGICAL HISTORY OF biopsy- neck mass- lymphoma STENT ARTERIAL EXTREMITY 09/11 Right iliac a stent SOCIAL HISTORY Social History Tobacco Use Smoking status: Every Day Packs/day: 2.00 Years: 50.00 Pack years: 100.00 Types: Cigarettes Smokeless tobacco: Never Substance Use Topics Alcohol use: Yes Drug use: Yes Comment: occ pot FAMILY HISTORY Problem Relation Age of Onset Hypertension Mother Diabetes Father Alzheimer's Disease Father Stroke Father Hypertension Father other (Other) Sister 50 frontal temporal dementia None Sister None Brother Lipids Sister Thyroid Sister None Daughter None Daughter ALLERGIES: ALLERGIES No Known Allergies CURRENT MEDICATIONS: paliperidone palmitate (INVEGA SUSTENNA) 156 mg/mL syrg injection^Inject 1 mL intramuscularly.^Disp: ^Rfl: omeprazole (PRILOSEC) 20 mg capsule^Take 1 capsule by mouth once daily.^Disp: ^Rfl: Saw [place] Fruit 450 mg cap^Take by mouth once daily.^Disp: ^Rfl: dapagliflozin (FARXIGA) 10 mg tablet^Take 1 tablet by mouth daily with breakfast.^Disp: 90 tablet^Rfl: 3 digoxin (LANOXIN) 125 mcg (0.125 mg) tablet^Take 1 tablet by mouth once daily.^Disp: 45 tablet^Rfl: 3 bempedoic acid (NEXLETOL) 180 mg tablet^Take 1 tablet (180 mg) by mouth daily at bedtime.^Disp: 90 tablet^Rfl: 3 metoprolol succinate ER (TOPROL XL) 25 mg 24 hr tablet^Take 1 tablet by mouth once daily.^Disp: 30 tablet^Rfl: 11 sacubitril-valsartan (ENTRESTO) 24-26 mg tablet^Take 1 tablet by mouth twice daily.^Disp: 60 tablet^Rfl: 11 spironolactone (ALDACTONE) 25 mg tablet^Take 1 tablet by mouth once daily.^Disp: 30 tablet^Rfl: 11 apixaban (ELIQUIS) 5 mg tab(s)^Take 1 tablet by mouth twice daily.^Disp: 180 tablet^Rfl: 3 acetaminophen (TYLENOL) 325 mg tablet^Take 2 tablets by mouth every 6 hours as needed for pain.^Disp: ^Rfl: nitroglycerin sublingual (NITROSTAT) 0.4 mg SL tablet^Dissolve 1 tablet under the tongue as needed for Chest Pain. If no pain relief call 911.^Disp: 1 tablet^Rfl: 1 cholecalciferol (VITAMIN D3) 5,000 unit tab^Take 2,000 Units by mouth once daily. ^Disp: ^Rfl: Aspirin 81 mg ORAL Tab^Take one(1) tablet daily.^Disp: ^Rfl: 0 REVIEW OF SYSTEMS: See HPI. PHYSICAL EXAMINATION: BP 146/76 (BP Site: Right Arm) Pulse 74 Ht 190.5 cm (6' 3 ) Wt 82.5 kg (181 lb 12.8 oz) SpO2 97% BMI 22.72 kg/m General appearance: Alert, cooperative, slightly irritable and disorganized thinking Head: Normocephalic, atraumatic Eyes: conjunctiva/corneas normal, PERRL Oropharynx: moist without lesions, teeth in good repair Neck: supple and JVP ~10 cmH20 Heart: regular rate and rhythm, without murmur Lungs: clear to auscultation, without rales or wheeze, good air exchange Abdomen:soft, nondistended, nontender, no hepatosplenomegaly or masses Ext: no edema in LE bilaterally, mildly reduced pulses, warm CARDIOVASCULAR MEDICINE TESTIN07/12/2020 Echo: Value Indexed Normal Max aortic dimension 3.5 cm Ao < 3.8 Left atrium diameter 4.4 cm (M-Mode) Left atrial volume 77 ml (biplane A-L) 35 ml/m Sandra <= 34 LV ID (diastole) 5.8 cm (2D) 2.64 cm/m LV ID (systole) 5.2 cm (2D) 2.37 cm/m IVS, leaflet tips 1.2 cm (2D) Posterior wall thickness 0.8 cm (2D) Left ventricular mass 228 g (2D) 104 g/m Global peak long strain -12.4 % LV stroke volume 44 ml (2D biplane) LV end diastolic volume 143 ml (2D biplane) 65.5 ml/m 34<=EDVi<75 LV end systolic volume 100 ml (2D biplane) 45.6 ml/m Ejection Fraction 30 % (2D biplane) EF > 52 - The left ventricle is normal in size. Left ventricular systolic function is moderately decreased. EF = 30 5% (2D biplane) - The right ventricle is normal in size. Right ventricular systolic function is normal. - The left atrial cavity is mildly dilated. - Trivial-1+ TR. - Estimated right ventricular systolic pressure is likely underestimated due to a weak or incomplete tricuspid regurgitation signal and is, at least, 32 mmHg consistent with normal pulmonary artery pressures. Estimated right atrial pressure is 3 mmHg based on IVC assessment. - Patient has remote history of LV thrombus. No thrombus seen in LV apex on today's study. - Exam was compared with the prior [facility] echocardiographic exam performed on 03/08/2019. Mild interval improvement in LVEF on comparison I have personally reviewed the Laboratory Testing and echocardiogram. 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 Previously I had discussed that patient will need tighter cholesterol control. Recommend consideration for PCSK9 inhibitor such as Repatha. Patient is on bempedoic acid but LDL still at 100, above goal of < 70. He states he would like his PCP to manage his cholesterol. Add zetia 10mg. Will likely need PCSk9 inhibitor- he had previously cancelled prevention appt- I have urged him to reconsider. LVEF appears to be about 31% on last echo. BP on the higher side today, will up-titrate HF meds as tolerated. NYHA Functional Class: II Stage: C heart failure Estimated dry weight: 181lb (near euvolemic) Heart Failure specific medications (list current, note updates or changes, note prior intolerance): BB: metoprolol succinate 25mg-> increase to 50mg ACEI/ARB/ARNI: Entresto 24-26 BID-> increase to 49-51mg BID in 1 week after metoprolol change MRA: spironolactone 25 mg daily Diuretic: none Digoxin: 250 mcg -> 125mcg (level supratherapeutic) Vasodilators: none Anti-arrhythmics: none Ivabradine: none Other anti-HTN: none SGLT2: Farxiga 10mg daily PLAN AND RECOMMENDATIONS: # Ischemic cardiomyopathy: - Echo 03/08/19: LVEF 25%. LV/RV thrombus resolved. - Echo 07/12/2020: LVEF 30% - see above HF GDMT- titrating betablocker and ARNI # CAD and PAD with statin intolerance - discussed goal LDL should be < 70 - s/p CABG 01/2007 - s/p PCI 2013 - s/p right iliac stent - h/o bleeding on Plavix - on aspirin plus Eliquis - unable to tolerate rosuvasatin and other statins in the past due to statin intolerance - patient previously declined PCSK9 inhibitors because he does not want an injectable I have urged him to reconsider -> previously managed by Dr. Burden, his PCP - await lipid panel today- may need further titration; add Zetia - will check PVRs and arrange for follow-up with Dr. Gabriel # Atrial Flutter - s/p DCCV 09/27/18 - on metoprolol, digoxin - Now on Eliquis # Extensive DVT with acute right IJ DVT, acute right popliteal, PT, peroneal, gastroc DVT, left PT vein And previous LV and RV thrombus - has been on Warfarin with INR followed by Dr. 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 Burden via fax with copy of labs, echo. MD Sally Gloria (phone [phone]) documented in this encounter [facility] 04-10-2022 Miscellaneous Notes mp documented in this encounter [facility] 01-08-2022 Note HNO ID: [id number] Author: Marianela Weeks MD Service: ? Author Type: Physician Type: Progress Notes Filed: 01/08/2022 12:50 PM Note Text: Will refer to preventative cardiology. History of statin intolerance and CAD. On bempedoic acid with the above lipid profile. Will likely need PCSK9 inhibitor. Marianela Weeks MD, [facility] Staff Warehouse Administrator, Advanced Heart Failure and Transplantation [facility] 01/08/2022 12:50 PM [facility] 01-02-2022 Note HNO ID: [id number] Author: Marianela Weeks MD Service: ? Author Type: Physician Type: Progress Notes Filed: 01/02/2022 2:44 PM Note Text: [facility] [place] [facility] SECTION OF HEART FAILURE and CARDIAC TRANSPLANT MEDICINE OUTPATIENT VISIT DATE January 02, 2022 OUTPATIENT VISIT TYPE Established Patient PRIMARY CARE PHYSICIAN: MD Narcisa Damon [address] [place] [address] CHIEF COMPLAINT: Follow-up HISTORY OF PRESENT ILLNESS: Jimmy Mercado is a 71 year old male with ischemic cardiomyopathy (LVEF 30%, LVEDD 5.8cm, normal RV function), coronary artery disease s/p CABG 2006 and PCI 2013, PAD s/p Right iliac stent in 2006, atrial flutter, multiple DVTs , LV and RV thrombi (resolved), dyslipidemia, statin intolerance, and history of head and neck lymphoma s/p chemo and XRT in 2005. Appears stable from HF standpoint. Since last visit, he was hospitalized for psychiatric reasons and now lives at [facility]. [facility], [facility] with medications. He presents with his younger daughter to clinic today. He is hoping to go to to [facility]. HF Nursing Assessment: Interim Hospitalizations and/or ER visits: no Chest Pain: no Skipping or irregular heartbeats: no Shortness of breath at rest: no Shortness of breath with activity: no Cough: some Waking up in the middle of the night gasping for air: no Lightheadedness or dizziness: yes Feeling like you are going to pass out: no Actually passing out: no Poor energy level: no Unintentional weight gain: no Unintentional weight loss: no Swelling in your legs,feet, abdomen: no Filling up quickly when you eat: no PAST MEDICAL HISTORY Diagnosis Date Acute gastritis without mention of hemorrhage Allergic rhinitis, cause 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 Atherosclerosis of [place] arteries of the extremities with intermittent claudication 03/24/2008 left Backache, 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 Bipolar affective disorder, currently manic, moderate ([facility]) 2011 hospitalized at [facility] 04/06/2010-04/27/2010 Bipolar disorder, unspecified ([facility]) 03/24/2008 Cardiomyopathy in other diseases classified elsewhere 03/24/2008 COPD (chronic obstructive pulmonary disease) ([facility]) Esophageal reflux 03/24/2008 Hx of CABG 2007 Impotence of organic origin 03/24/2008 Ischemic cardiomyopathy 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[facility]) Loss of weight 03/24/2008 Loss of weight Lymphoma in remission ([facility]) chemo and radiation Nausea alone Nonorganic sleep disorder, 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 NSTEMI (non-ST elevated myocardial infarction) ([facility]) s/p 3 stents 2013 Obsessive-compulsive disorders 03/24/2008 OCD (obsessive compulsive disorder) Other malaise and fatigue 03/24/2008 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, face, and neck 03/24/2008 PAD (peripheral artery disease) ([facility]) s/p right iliac stent 2006 Panic disorder without agoraphobia 03/24/2008 Peripheral vascular disease, unspecified ([facility]) 03/24/2008 Pure hypercholesterolemia 03/24/2008 Tobacco use disorder 03/24/2008 Unspecified constipation PAST SURGICAL HISTORY Procedure Laterality Date COLONOSCOPY FLX DX W/COLLJ SPEC WHEN PFRMD 09/16/08 CORONARY ARTERY BYPASS 5 CORONARY VENOUS GRAFTS 01/11 Emily Lamb EGD TRANSORAL BIOPSY SINGLE/MULTIPLE 09/16/08 ESOPHAGOGASTRODUODENOSCOPY TRANSORAL DIAGNOSTIC 1987 [facility] EGD PAST SURGICAL HISTORY OF nasal septum surgery PAST SURGICAL HISTORY OF biopsy- neck mass- lymphoma STENT ARTERIAL EXTREMITY 09/11 Right iliac a stent SOCIAL HISTORY Social History Tobacco Use Smoking status: Every Day Packs/day: 2.00 Years: 50.00 Pack years: 100.00 Types: Cigarettes Smokeless tobacco: Never Substance Use Topics Alcohol use: Yes Drug use: Yes Comment: occ pot FAMILY HISTORY Problem Relation Age of Onset Hypertension Mother Diabetes Father Alzheimer's Disease Father Stroke Father Hypertension Father other (Other) Sister 50 frontal temporal dementia None Sister None Brother Lipids Sister Thyroid Sister None Daughter None Daughter ALLERGIES: ALLERGIES No Known Allergies CURRENT MEDICATIONS: paliperidone palmitate (INVEGA SUSTENNA) 156 mg/mL syrg injectionInject 1 mL intramuscularly.Disp: Rfl: omeprazole (PRILOSEC) 20 mg capsuleTake 1 capsule by mouth once daily.Disp: Rfl: Saw [place] Fruit 450 mg capTake by mouth once daily.Disp: Rfl: digoxin (LANOXIN) 250 mcg (0.25 mg) tabletTake 1 tablet by mouth once daily.Disp: 30 tabletRfl: 11 metoprolol succinate ER (TOPROL XL) 25 mg 24 hr tabletTake 1 tablet by mouth once daily.Disp: 30 tabletRfl: 11 sacubitril-valsartan (ENTRESTO) 24-26 mg tabletTake 1 tablet by mouth twice daily.Disp: 60 tabletRfl: 11 spironolactone (ALDACTONE) 25 mg tabletTake 1 tablet by mouth once daily.Disp: 30 table (more content not included)... [facility] 01-02-2022 Instructions Marianela Weeks MD - 01/02/2022 1:45 PM EDT It was good to see you today! Overall you look stable today. As we discussed, recommendations as below: 1) Decrease digoxin from 250mcg to 125mcg daily 2) Start a new medicine called Farxiga at 10mg daily- this medicine should reduce your risk of HF or hospitalization and help regulate fluid balance 3) Return in 3 months for labs (repeat digoxin level), device check, clinic visit with ks and new electric doctor Marianela Weeks MD, [facility] Staff Warehouse Administrator, Advanced Heart Failure and Transplantation [facility] 01/02/2022 1:44 PM documented in this encounter [facility] 01-02-2022 History of Present illness Narrative Images from the original note were not included. [facility] [place] [facility] SECTION OF HEART FAILURE and CARDIAC TRANSPLANT MEDICINE OUTPATIENT VISIT DATE January 02, 2022 OUTPATIENT VISIT TYPE Established Patient PRIMARY CARE PHYSICIAN: MD Narcisa Damon [address] [place] [address] CHIEF COMPLAINT: Follow-up HISTORY OF PRESENT ILLNESS: Jimmy Mercado is a 71 year old male with ischemic cardiomyopathy (LVEF 30%, LVEDD 5.8cm, normal RV function), coronary artery disease s/p CABG 2006 and PCI 2013, PAD s/p Right iliac stent in 2006, atrial flutter, multiple DVTs , LV and RV thrombi (resolved), dyslipidemia, statin intolerance, and 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 Appears stable from HF standpoint. Since last visit, he was hospitalized for psychiatric reasons and now lives at [facility]. [facility], he is provided with medications. He presents with his younger daughter to clinic today. He is hoping to go to to [facility]. HF Nursing Assessment: Interim Hospitalizations and/or ER visits: no Chest Pain: no Skipping or irregular heartbeats: no Shortness of breath at rest: no Shortness of breath with activity: no Cough: some Waking up in the middle of the night gasping for air: no Lightheadedness or dizziness: yes Feeling like you are going to pass out: no Actually passing out: no Poor energy level: no Unintentional weight gain: no Unintentional weight loss: no Swelling in your legs,feet, abdomen: no Filling up quickly when you eat: no PAST MEDICAL HISTORY Diagnosis Date Acute gastritis without mention of hemorrhage Allergic rhinitis, cause 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 Atherosclerosis of [place] arteries of the extremities with intermittent claudication 03/24/2008 left Backache, 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 Bipolar affective disorder, currently manic, moderate ([facility]) 2011 hospitalized at [facility] 04/06/2010-04/27/2010 Bipolar disorder, unspecified ([facility]) 03/24/2008 Cardiomyopathy in other diseases classified elsewhere 03/24/2008 COPD (chronic obstructive pulmonary disease) ([facility]) Esophageal reflux 03/24/2008 Hx of CABG 2007 Impotence of organic origin 03/24/2008 Ischemic cardiomyopathy 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[facility]) Loss of weight 03/24/2008 Loss of weight Lymphoma in remission ([facility]) chemo and radiation Nausea alone Nonorganic sleep disorder, 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 NSTEMI (non-ST elevated myocardial infarction) ([facility]) s/p 3 stents 2014 Obsessive-compulsive disorders 03/24/2008 OCD (obsessive compulsive disorder) Other malaise and fatigue 03/24/2008 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, face, and neck 03/24/2008 PAD (peripheral artery disease) ([facility]) s/p right iliac stent 2007 Panic disorder without agoraphobia 03/24/2008 Peripheral vascular disease, unspecified ([facility]) 03/24/2008 Pure hypercholesterolemia 03/24/2008 Tobacco use disorder 03/24/2008 Unspecified constipation PAST SURGICAL HISTORY Procedure Laterality Date COLONOSCOPY FLX DX W/COLLJ SPEC WHEN PFRMD 09/16/08 CORONARY ARTERY BYPASS 5 CORONARY VENOUS GRAFTS 01/11 EGD TRANSORAL BIOPSY SINGLE/MULTIPLE 09/16/08 ESOPHAGOGASTRODUODENOSCOPY TRANSORAL DIAGNOSTIC 1988 [facility] EGD PAST SURGICAL HISTORY OF nasal septum surgery PAST SURGICAL HISTORY OF biopsy- neck mass- lymphoma STENT ARTERIAL EXTREMITY 09/11 Right iliac a stent SOCIAL HISTORY Social History Tobacco Use Smoking status: Every Day Packs/day: 2.00 Years: 50.00 Pack years: 100.00 Types: Cigarettes Smokeless tobacco: Never Substance Use Topics Alcohol use: Yes Drug use: Yes Comment: occ pot FAMILY HISTORY Problem Relation Age of Onset Hypertension Mother Diabetes Father Alzheimer's Disease Father Stroke Father Hypertension Father other (Other) Sister 50 frontal temporal dementia None Sister None Brother Lipids Sister Thyroid Sister None Daughter None Daughter ALLERGIES: ALLERGIES No Known Allergies CURRENT MEDICATIONS: paliperidone palmitate (INVEGA SUSTENNA) 156 mg/mL syrg injection^Inject 1 mL intramuscularly.^Disp: ^Rfl: omeprazole (PRILOSEC) 20 mg capsule^Take 1 capsule by mouth once daily.^Disp: ^Rfl: Saw [place] Fruit 450 mg cap^Take by mouth once daily.^Disp: ^Rfl: digoxin (LANOXIN) 250 mcg (0.25 mg) tablet^Take 1 tablet by mouth once daily.^Disp: 30 tablet^Rfl: 11 metoprolol succinate ER (TOPROL XL) 25 mg 24 hr tablet^Take 1 tablet by mouth once daily.^Disp: 30 tablet^Rfl: 11 sacubitril-valsartan (ENTRESTO) 24-26 mg tablet^Take 1 tablet by mouth twice daily.^Disp: 60 tablet^Rfl: 11 spironolactone (ALDACTONE) 25 mg tablet^Take 1 tablet by mouth once daily.^Disp: 30 tablet^Rfl: 11 apixaban (ELIQUIS) 5 mg tab(s)^Take 1 tablet by mouth twice daily.^Disp: 180 tablet^Rfl: 3 acetaminophen (TYLENOL) 325 mg tablet^Take 2 tablets by mouth every 6 hours as needed for pain.^Disp: ^Rfl: bempedoic acid (NEXLETOL) 180 mg tablet^Take 1 tablet (180 mg) by mouth daily at bedtime.^Disp: ^Rfl: nitroglycerin sublingual (NITROSTAT) 0.4 mg SL tablet^Dissolve 1 tablet under the tongue as needed for Chest Pain. If no pain relief call 911.^Disp: 1 tablet^Rfl: 1 cholecalciferol (VITAMIN D-3) 5,000 unit tab^Take 2,000 Units by mouth once daily. ^Disp: ^Rfl: Aspirin 81 mg ORAL Tab^Take one(1) tablet daily.^Disp: ^Rfl: 0 aluminum-magnesium hydroxide-simethicone (MAALOX,MYLANTA,MAG-AL PLUS) 200-200-20 mg/5 mL suspension^Take 30 mL by mouth every 4 hours as needed.^Disp: ^Rfl: clonazePAM (KLONOPIN) 0.5 mg tablet^Take 3 tablets by mouth daily at bedtime for 30 days.^Disp: ^Rfl: valproic acid (DEPAKENE) 250 mg capsule^Take 6 capsules by mouth daily at bedtime.^Disp: ^Rfl: OLANZapine orally disintegrating (ZYPREXA ZYDIS) 10 mg disintegrating tablet^Take 1 tablet by mouth daily at bedtime.^Disp: ^Rfl: magnesium hydroxide (MOM) 400 mg/5 mL suspension^Take 30 mL by mouth once daily as needed.^Disp: ^Rfl: REVIEW OF SYSTEMS: See HPI. PHYSICAL EXAMINATION: BP 111/74 (BP Site: Left Arm, BP Position: Sitting, BP Cuff Size: Regular Adult) Pulse 70 Ht 188 cm (6' 2 ) Wt 87.5 kg (193 lb) SpO2 97% BMI 24.78 kg/m General appearance: Alert, cooperative, slightly irritable and disorganized thinking Head: Normocephalic, atraumatic Eyes: conjunctiva/corneas normal, PERRL Oropharynx: moist without lesions, teeth in good repair Neck: supple and JVP ~10 cmH20 Heart: regular rate and rhythm, without murmur Lungs: clear to auscultation, without rales or wheeze, good air exchange Abdomen:soft, nondistended, nontender, no hepatosplenomegaly or masses Ext: no edema in LE bilaterally, mildly reduced pulses, warm CARDIOVASCULAR MEDICINE TESTIN07/12/2020 Echo: Value Indexed Normal Max aortic dimension 3.5 cm Ao < 3.8 Left atrium diameter 4.4 cm (M-Mode) Left atrial volume 77 ml (biplane A-L) 35 ml/m Sandra <= 34 LV ID (diastole) 5.8 cm (2D) 2.64 cm/m LV ID (systole) 5.2 cm (2D) 2.37 cm/m IVS, leaflet tips 1.2 cm (2D) Posterior wall thickness 0.8 cm (2D) Left ventricular mass 228 g (2D) 104 g/m Global peak long strain -12.4 % LV stroke volume 44 ml (2D biplane) LV end diastolic volume 143 ml (2D biplane) 65.5 ml/m 34<=EDVi<75 LV end systolic volume 100 ml (2D biplane) 45.6 ml/m Ejection Fraction 30 % (2D biplane) EF > 52 - The left ventricle is normal in size. Left ventricular systolic function is moderately decreased. EF = 30 5% (2D biplane) - The right ventricle is normal in size. Right ventricular systolic function is normal. - The left atrial cavity is mildly dilated. - Trivial-1+ TR. - Estimated right ventricular systolic pressure is likely underestimated due to a weak or incomplete tricuspid regurgitation signal and is, at least, 32 mmHg consistent with normal pulmonary artery pressures. Estimated right atrial pressure is 3 mmHg based on IVC assessment. - Patient has remote history of LV thrombus. No thrombus seen in LV apex on today's study. - Exam was compared with the prior [facility] echocardiographic exam performed on 03/08/2019. Mild interval improvement in LVEF on comparison I have personally reviewed the Laboratory Testing and echocardiogram. 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 Previously I had discussed that patient will need tighter cholesterol control. Recommend consideration for PCSK9 inhibitor such as Repatha. Patient is on bempedoic acid but LDL still at 120, above goal of < 70. He states he would like his PCP to manage his cholesterol. Await lipid panel result from today. LVEF appears to be about 25-30% on echo (formal read pending). Discussed addition of SGLT2 inhibitor- patient is now willing to proceed. Digoxin level is supratherapeutic, will reduce dose. NYHA Functional Class: II Stage: C heart failure Estimated dry weight: 193lb (near euvolemic) Heart Failure specific medications (list current, note updates or changes, note prior intolerance): BB: metoprolol succinate 25mg ACEI/ARB/ARNI: Entresto 24-26 BID-> BP log shows BP at goal MRA: spironolactone 25 mg daily Diuretic: none Digoxin: 250 mcg -> 125mcg (level supratherapeutic) Vasodilators: none Anti-arrhythmics: none Ivabradine: none Other anti-HTN: none SGLT2: Start Farxiga 10mg daily PLAN AND RECOMMENDATIONS: # Ischemic cardiomyopathy: - Echo 03/08/19: LVEF 25%. LV/RV thrombus resolved. - Echo 07/12/2020: LVEF 30% - see above HF GDMT - add SGLT2 inhibitor # CAD and PAD with statin intolerance - discussed goal LDL should be < 70 - s/p CABG 01/2007 - s/p PCI 2013 - s/p right iliac stent - h/o bleeding on Plavix - on aspirin plus Eliquis - unable to tolerate rosuvasatin and other statins in the past due to statin intolerance - patient previously declined PCSK9 inhibitors because he does not want an injectable I have urged him to reconsider -> previously managed by Dr. Burden, his PCP - await lipid panel today- may need further titration # Atrial Flutter - s/p DCCV 09/27/18 - on metoprolol, digoxin - Now on Eliquis # Extensive DVT with acute right IJ DVT, acute right popliteal, PT, peroneal, gastroc DVT, left PT vein And previous LV and RV thrombus - has been on Warfarin with INR followed by Dr. 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 Burden via fax with copy of labs, echo. MD Salud Gloriaoster (phone [phone]) documented in this encounter [facility] 10-12-2021 Miscellaneous Notes Opened in error documented in this encounter [facility] 10-12-2021 Miscellaneous Notes October 12, 2021 Name: Jimmy Mercado Patient Contact Number: [phone] (home) [phone] (cell) Date of last office visit: 06/05/2021 Reason For Call: Other Issue: Family member called to re-schedule appointment Physician: Marianela Weeks MD Patient was informed that non-urgent calls may be returned within the next three business days. Yes Patient's daughter called to reschedule his visit with Dr. Weeks, echo, pacemaker check and labs. Message was sent to [facility] to reach out to her. Marah Mercado @ [phone] Nohelia Alejandra documented in this encounter [facility] 08-20-2021 Miscellaneous Notes Images from the original note were not included. Called number provided, spoke to Geoffrey, the director of community center at [facility]. He states that the Entresto is not on their formulary and they have been substituting with 50 mg losartan QD. He let me know that if the daughter would like, they will take in his home bottle of Entresto to give to him. Called daughter, Marah to let her know. She states that she will take the Entresto medication to the facility today. She asked about his cholesterol medication, bempedoic acid, and if he should be on it or not. I let her know that per Dr. Weeks's note on 06/05/21, pt states that he wants to continue with his PCP monitoring and prescribing for his cholesterol. Daughter verbalized understanding and will reach PCP re cholesterol and will take Entresto to facility today. Johnna Gauthier RN August 20, 2021 1:35 PM Marianela Weeks MD You 1 hour ago (11:50 AM) Yes valsartan 20mg BID is a reasonable substitute, thank you!! Received a call from patient's daughter who states that the patient is currently admitted at a psychiatric hospital--[facility]. The hospital does not have Entresto to give him, but states they have losartan as an alternative. The daughter states she could drop off his entresto but the hospital generally does not give outside medications to patient's. They would like for a nurse/doctor to call and let them know how they should proceed with his heart meds. They can be reached at [phone] Tamiko [id number] documented in this encounter [facility] 08-17-2021 Miscellaneous Notes BEHAVIORAL HEALTH INTAKE NOTE SERVICE DATE: 08/16/21 SERVICE TIME: 2154 Nature of the crisis: Per ED provider, Pt presents pink slipped by police. He was walking [address], confused and not making sense. He has had history of manic episodes. He has been seen multiple times for psychiatric admission/transfers. According to EMR, he has Bipolar disorder and panic disorder. He denies SI or HI. Presenting Problem: Jimmy Mercado is a 71 year old male referred from [facility]. for christi. Pt was assessed by [facility] nephrology social worker. Social Work Psychiatric Assessment by MAURISIO Norris, FARHAN 08/16/21: Chief Complaint: SW asked pt why he is at the hospital and pt said, talk to the front end engineer or the [facility] nephrology social worker. Pt the said, send em the bill and then stated his psychiatrist was Dr. Arauz but he retired 6 months ago. Pt said that this junior underwriter needs to talk to the nephrology social worker by remote. Pt then stated he Cyndy Tirado and that this junior underwriter is better off preaching to get off drugs. Pt said that he told his psychiatrist, Dr. Arauz how to do meth. Pt said that he is engaged to suppose Alona Gracia who talks like Keron mouse. Pt then talked about how he had sex as a disco in [place] with [place] who was parents were part [place]ian and [place] and then stated to call [place] at [employer]. Per pink slip competed by Jimmy Mercado was located broke down at [address] out of his vehicle. His daughter called us for a welfare check because he has not been taking his medication. 35+ years bipolar, schizoaffective and onset dementia. This is the fourth emergency admission in 12 months, most recently 2 weeks ago. Jimmy Has mentioned many people that do not exist anymore and were employees of his. I also located a 1/2 empty bottle of vodka. I administered SFST's with negative finding. He represents a substantial risk to himself and would benefit from treatment. Per Officer Neel FOX met with MD Alves , DOMINIQUE and concur that pt would benefit from inpt psych hospitalization for crisis stabilization and medication management. 08/17/21 Reviewed psychiatric history. PT has a previous admission to [facility] from 08/29/20 through 10/24/20 (56 days) with an eventual discharge to [facility]. Pt frequently required soft restraints, and a 1 to 1 sitter the entire admission due to impulsiveness. Pt required court ordered medication over objections beginning on 09/07/20. Even with all these interventions, pt had mimimal improvement in symptoms and was transferred to [facility] for further management. Pt has been admitted three times since that admission. Pt is chronically non compliant with care. PAST MEDICAL HISTORY: PAST MEDICAL HISTORY Diagnosis Date Acute gastritis without mention of hemorrhage Allergic rhinitis, cause 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 Atherosclerosis of [place] arteries of the extremities with intermittent claudication 03/24/2008 left Backache, 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 Bipolar affective disorder, currently manic, moderate ([facility]) 2010 hospitalized at [facility] 04/06/2010-04/27/2010 Bipolar disorder, unspecified ([facility]) 03/24/2008 Cardiomyopathy in other diseases classified elsewhere 03/24/2008 COPD (chronic obstructive pulmonary disease) ([facility]) Esophageal reflux 03/24/2008 Hx of CABG 2007 Impotence of organic origin 03/24/2008 Ischemic cardiomyopathy 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[facility]) Loss of weight 03/24/2008 Loss of weight Lymphoma in remission ([facility]) chemo and radiation Nausea alone Nonorganic sleep disorder, 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 NSTEMI (non-ST elevated myocardial infarction) ([facility]) s/p 3 stents 2013 Obsessive-compulsive disorders 03/24/2008 OCD (obsessive compulsive disorder) Other malaise and fatigue 03/24/2008 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, face, and neck 03/24/2008 PAD (peripheral artery disease) ([facility]) s/p right iliac stent 2006 Panic disorder without agoraphobia 03/24/2008 Peripheral vascular disease, unspecified (HCC) 03/24/2008 Pure hypercholesterolemia 03/24/2008 Tobacco use disorder 03/24/2008 Unspecified constipation SOCIAL HISTORY: Social History Tobacco Use Smoking status: Former Smoker Packs/day: 2.00 Years: 50.00 Pack years: 100.00 Types: Cigarettes Smokeless tobacco: Never Used Substance Use Topics Alcohol use: Yes Drug use: Yes Comment: occ pot MEDICATIONS: digoxin (LANOXIN) 250 mcg (0.25 mg) tablet Take 1 tablet by mouth once daily. metoprolol succinate ER (TOPROL XL) 25 mg 24 hr tablet Take 1 tablet by mouth once daily. sacubitril-valsartan (ENTRESTO) 24-26 mg tablet Take 1 tablet by mouth twice daily. spironolactone (ALDACTONE) 25 mg tablet Take 1 tablet by mouth once daily. apixaban (ELIQUIS) 5 mg tab(s) Take 1 tablet by mouth twice daily. acetaminophen (TYLENOL) 325 mg tablet Take 2 tablets by mouth every 6 hours as needed for pain. aluminum-magnesium hydroxide-simethicone (MAALOX,MYLANTA,MAG-AL PLUS) 200-200-20 mg/5 mL suspension Take 30 mL by mouth every 4 hours as needed. clonazePAM (KLONOPIN) 0.5 mg tablet Take 3 tablets by mouth daily at bedtime for 30 days. valproic acid (DEPAKENE) 250 mg capsule Take 6 capsules by mouth daily at bedtime. bempedoic acid (NEXLETOL) 180 mg tablet Take 1 tablet (180 mg) by mouth daily at bedtime. OLANZapine orally disintegrating (ZYPREXA ZYDIS) 10 mg disintegrating tablet Take 1 tablet by mouth daily at bedtime. QUEtiapine (SEROQUEL) 300 mg tablet Take 1 tablet by mouth daily at bedtime. magnesium hydroxide (MOM) 400 mg/5 mL suspension Take 30 mL by mouth once daily as needed. nitroglycerin sublingual (NITROSTAT) 0.4 mg SL tablet Dissolve 1 tablet under the tongue as needed for Chest Pain. If no pain relief call 911. cholecalciferol (VITAMIN D-3) 5,000 unit tab Take 2,000 Units by mouth once daily. Aspirin 81 mg ORAL Tab Take one(1) tablet daily. No medication comments found. MEDICATION COMPLIANCE: No ALLERGIES No Known Allergies PAST SURGICAL HISTORY: PAST SURGICAL HISTORY Procedure Laterality Date COLONOSCOPY FLX DX W/COLLJ SPEC WHEN PFRMD 09/16/08 CORONARY ARTERY BYPASS 5 CORONARY VENOUS GRAFTS 01/11 Emily Lamb EGD TRANSORAL BIOPSY SINGLE/MULTIPLE 09/16/08 ESOPHAGOGASTRODUODENOSCOPY TRANSORAL DIAGNOSTIC 1987 [facility] EGD PAST SURGICAL HISTORY OF nasal septum surgery PAST SURGICAL HISTORY OF biopsy- neck mass- lymphoma STENT ARTERIAL EXTREMITY 09/11 Right iliac a stent SOCIOECONOMIC HISTORY: Employer And Job Title: None on file Years Of Education Completed: Not specified Marital Status: SOCIAL INFORMATION: Living Arrangements: Home Provider Stated Diagnosis: Bipolar disorder Does Patient Have Minor Children for Whom He/She is Responsible?: No Education Level: College Graduate Employment Status: Retired;Disabled Legal History: Arrests;Convictions Legal Details: 1999 Disorderly Conduct, DWI How Legal Issues Were Verified: Other: See Comment;[facility] [employer]'s Sexual Offender Website (Dusty Vizcarra [employer] Website) Gender Specific Test: Not Applicable Sex at Time of : Male Patient Identified Gender: Male Preferred Pronoun: He/Him/His Sexual Orientation: Heterosexual FAMILY HISTORY: FAMILY HISTORY Problem Relation Age of Onset Hypertension Mother Diabetes Father Alzheimer's Disease Father Stroke Father Hypertension Father other (Other) Sister 50 frontal temporal dementia None Sister None Brother Lipids Sister Thyroid Sister None Daughter None Daughter OBSERVATIONS Level of Consciousness Alert: Yes Orientation: Person;Place;Time;Situation Physical Appearance Appears: Disheveled Speech Rate: Pressured Quality: Bizarre Thought Processes Thought: Tangential;Circumstantial Thought Content Delusions: Grandiose Hallucinations: None Evident;Patient Denies Illusions: None Evident;Patient Denies Memory: Impaired Mood & Affect Observed/Reported: Manic Sleep: Difficulty Sleeping Non-Suicidal Self Injury Non-Suicidal Self Injury: None Suicidal Ideation Suicidal Ideation: None Homicidal Ideation Homicidal Ideation: None Non-Lethal Harm to Others or Damage/Destruction to Property Harm to Others or Damage/Destruction of Property: None Medical Conditions Medical Conditions Increasing Risks: None CHEMICAL DEPENDENCY Substance Use: Yes Referral for Substance Abuse Services: No Toxicology Screen Results: Positive Positive Result: Marijuana Substances Used: Marijuana ACTIVITY Activities of Daily Living: Independent Mobility: No Assistance MENTAL HEALTH SERVICES: Current Mental Health Providers: unknown, per assessment Inpatient Mental Health Treatment History: Within Past 30 Days Details of Past Hospitalization: Pt has had 3 admissions this year for [facility] Last Hospitalization: [facility] in July 2021 INTERVENTIONS Sources of Information: Prior Referrals;ED Staff;Other: See Comment (outside facility) Coordination of care with: ED RN;Internal Behavioral Health Staff Interventions: None Goals/Objectives: Admission to inpatient psychiatric unit for further evaluation and treatment of symptoms of illness DISPOSITION & PLAN: Patient Assessed by Intake via: Patient stated goals: Coordination of Care with: ED RN;Internal Behavioral Health Staff Assessment/Impressions: Inpatient Need Plan: Await medical clearance;Consult with Psychiatry on-call, ED Psych consult, or other provider;Secure an inpatient bed Goals/Objectives: Admission to inpatient psychiatric unit for further evaluation and treatment of symptoms of illness Total time spent (minutes) in Supportive Care for this patient: MEDICAL CLEARANCE Initial Date: 08/17/21 Initial Time: 37 Reviewed medical history with physician: Yes Reviewed abnormal labs with physician: Yes Discussed case with Dr. Enriquez who states that Jimmy Mercado is not candidate for admission. Provider Stated Diagnosis: Bipolar disorder Admitting Provider: Dr. 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 She is going to email the guardianship paperwork for our files. The patient has become more confused and has not been taking his cardiac medications. Most specifically the Entresto, Eliquis, digoxin or spironolactone. She asks that we send 30 day prescriptions to [facility] on [address] in [place] for Entresto, spironolactone, digoxin, and metoprolol. Marah Mercado can be reached at [phone]. documented in this encounter [facility] 07-08-2021 Hospital Discharge instructions Patient Transfer Information from 07/08/2021 8:12 AM:LOC : Alert Physician Follow-up Plan/Appointments from 07/08/2021 9:20 AM:Patient stated Primary Care Provider : Unknown S 10-24-2020 Note [facility] 10-23-2020 Note [facility] 10-22-2020 Note [facility] 10[facility]21-2020 Note [facility] 10-20-2020 Note [facility] 10-19-2020 Note [facility] 10-18-2020 Note [facility] 10-17-2020 Note [facility] 10-16-2020 Note [facility] 10[facility]15-2020 Note [facility] 10-14-2020 Note [facility] 10-13-2020 Note [facility] 10-12-2020 Note [facility] 10[facility]11-2020 Note [facility] 10-10-2020 Note [facility] 10-09-2020 Note [facility] 10-08-2020 Note [facility] 10-07-2020 Note [facility] 10-06-2020 Note [facility] 10-05-2020 Note [facility] 10[facility]04-2020 Note [facility] 10-03-2020 Note [facility] 10-02-2020 Note [facility] 10-01-2020 Note [facility] 09[facility]30-2020 Note [facility] 09-29-2020 Note [facility] 09-29-2020 Note [facility] 09-28-2020 Note [facility] 09-28-2020 Note [facility] 09-28-2020 Note HNO ID: [id number] Author: Shira Casillas RN Service: Behavioral Health Author Type: Registered Nurse Type: Progress Notes Filed: 09/28/2020 5:23 AM Note Text: Patient refused labwork. [facility] 09-28-2020 Note [facility] 09-28-2020 Note [facility] 09-27-2020 Note [facility] 09-26-2020 Note [facility] 09-26-2020 Note HNO ID: [id number] Author: Shira Casillas RN Service: Behavioral Health Author Type: Registered Nurse Type: Progress Notes Filed: 09/26/2020 7:23 AM Note Text: Patient declined lab work. [facility] 09-26-2020 Note [facility] 09-25-2020 Note [facility] 09-24-2020 Note [facility] 09-23-2020 Note [facility] 09-22-2020 Note [facility] 09[facility]22-2020 Note [facility] 09-21-2020 Note [facility] 09-20-2020 Note [facility] 09-19-2020 Note [facility] 09-18-2020 Note [facility] 09-17-2020 Note [facility] 09-16-2020 Note [facility] 09-16-2020 Note [facility] 09-15-2020 Note [facility] 09-14-2020 Note [facility] 09-13-2020 Note [facility] 09-12-2020 Note [facility] 09-11-2020 Note [facility] 09-10-2020 Note [facility] 09-09-2020 Note [facility] 09-09-2020 Note HNO ID: [id number] Author: Interface Note Service: ? Author Type: ? Type: Progress Notes Filed: 09/09/2020 5:50 AM Note Text: Epic Scheduled Downtime: 09/09/2020 1:00:00 AM to 09/09/2020 5:27:00 AM [facility] 09-08-2020 Note [facility] 09-08-2020 Note [facility] 09-07-2020 Note [facility] 09-06-2020 Note [facility] 09-05-2020 Note [facility] 09-04-2020 Note [facility] 09-04-2020 Note [facility] 09-03-2020 Note [facility] 09-02-2020 Note [facility] 09-01-2020 Note [facility] 09-01-2020 Note [facility] 08-31-2020 Note [facility] 08-31-2020 Note [facility] 08-30-2020 Note [facility] 08-29-2020 Note [facility] documented as of this encounter (statuses as of 07/24/2021) [facility] History of Past illness Narrative* Problem Noted Date Resolved Date Acute deep vein thrombosis ( DVT) of popliteal vein of right lower extremity 09/30/2018 10/09/2018 Febrile 09/29/2018 10/09/2018 Overview: - febrile since 09/28/18 - infectious w/u negative thus far Plan: - f/u on blood cultures, u/a, respiratory cultures - continue vancomycin and zosyn Hypo-osmolality and hyponatremia 09/29/2018 10/09/2018 ATN (acute tubular necrosis) 09/26/201808/2018 Overview: - Presenting with creatinine of 2.53 - Baseline creatinine 1.09 as of 07-08-18 - No urine output while at OSH - Unclear etiology - likely cardio renal given worsening LFT's vs vasomotor nephropathy - improving Plan: - Monitor I and O strictly - Weight daily - standing weights if able - Trend creatinine - Avoid nephrotoxic agents - Renally dose medications Acute on chronic systolic heart failure 09/27/19 19 10/09/2018 Overview: - Known EF of 25% per careeverywhere - ICM with biventricular failure - New onset atrial flutter -> ?decompensating HF - Declined ICD in the past due to ?inappropraite triggering of ?lifevest (external ICD per patient) - TTE concerning for LV and RV thrombus Plan: - Optimized via [place] with the closing hemodynamics of RA= 8, PA= 47/20/35, CI= 2.1, CO= 4.6, MVO2= 47 - PT/OT - Will likely need an ICD -> needs education regarding it Cardiogenic shock 09/26/2018 10/09/2018 Overview: - initial [place] with RA: 12 mmHg, RV: 42/12 mmHg, PA: 48/28 mmHg, mean PAP: 40 mmmHg, Wedge: 32 mmHg - initial CO 3, CI 1.4, VBG with SvO2 43% Plan: - Optimized with NTP Acute liver failure without hepatic coma 019 10/09/2018 Overview: New onset elevation in AST/ALT with normal ALP Mildly elevated T. Bili LDH elevated with thrombocytopenia Etiology - cardiogenic ischemic hepatitis vs hypotensive vs thromboembolic Liver vascular US with patent liver vasculature Plan: - Trend LFT's - Correct INR - Work up for thrombocytopenia and hypercoagulable state documented as of this encounter (statuses as of 08/13/2021) [facility] History of Past illness Narrative* Problem Noted Date Resolved Date Acute deep vein thrombosis ( DVT) of popliteal vein of right lower extremity 09/30/2018 10/09/2018 Febrile 09/29/2018 10/09/2018 Overview: - febrile since 09/28/18 - infectious w/u negative thus far Plan: - f/u on blood cultures, u/a, respiratory cultures - continue vancomycin and zosyn Hypo-osmolality and hyponatremia 09/29/2018 10/09/2018 ATN (acute tubular necrosis) 09/26/201808/2018 Overview: - Presenting with creatinine of 2.53 - Baseline creatinine 1.09 as of 07-08-18 - No urine output while at OSH - Unclear etiology - likely cardio renal given worsening LFT's vs vasomotor nephropathy - improving Plan: - Monitor I and O strictly - Weight daily - standing weights if able - Trend creatinine - Avoid nephrotoxic agents - Renally dose medications Acute on chronic systolic heart failure 09/27/1910/09/2018 Overview: - Known EF of 25% per careeverywhere - ICM with biventricular failure - New onset atrial flutter -> ?decompensating HF - Declined ICD in the past due to ?inappropraite triggering of ?lifevest (external ICD per patient) - TTE concerning for LV and RV thrombus Plan: - Optimized via [place] with the closing hemodynamics of RA= 8, PA= 47/20/35, CI= 2.1, CO= 4.6, MVO2= 47 - PT/OT - Will likely need an ICD -> needs education regarding it Cardiogenic shock 09/26/2018 10/09/2018 Overview: - initial [place] with RA: 12 mmHg, RV: 42/12 mmHg, PA: 48/28 mmHg, mean PAP: 40 mmmHg, Wedge: 32 mmHg - initial CO 3, CI 1.4, VBG with SvO2 43% Plan: - Optimized with NTP Acute liver failure without hepatic coma 019 10/09/2018 Overview: New onset elevation in AST/ALT with normal ALP Mildly elevated T. Bili LDH elevated with thrombocytopenia Etiology - cardiogenic ischemic hepatitis vs hypotensive vs thromboembolic Liver vascular US with patent liver vasculature Plan: - Trend LFT's - Correct INR - Work up for thrombocytopenia and hypercoagulable state documented as of this encounter (statuses as of 08/15/2021) [facility] History of Past illness Narrative* Problem Noted Date Resolved Date Acute deep vein thrombosis ( DVT) of popliteal vein of right lower extremity 09/30/2018 10/09/2018 Febrile 09/29/2018 10/09/2018 Overview: - febrile since 09/28/18 - infectious w/u negative thus far Plan: - f/u on blood cultures, u/a, respiratory cultures - continue vancomycin and zosyn Hypo-osmolality and hyponatremia 09/29/2018 10/09/2018 ATN (acute tubular necrosis) 09/26/201808/2018 Overview: - Presenting with creatinine of 2.53 - Baseline creatinine 1.09 as of 07-08-18 - No urine output while at OSH - Unclear etiology - likely cardio renal given worsening LFT's vs vasomotor nephropathy - improving Plan: - Monitor I and O strictly - Weight daily - standing weights if able - Trend creatinine - Avoid nephrotoxic agents - Renally dose medications Acute on chronic systolic heart failure 09/27/1910/09/2018 Overview: - Known EF of 25% per careeverywhere - ICM with biventricular failure - New onset atrial flutter -> ?decompensating HF - Declined ICD in the past due to ?inappropraite triggering of ?lifevest (external ICD per patient) - TTE concerning for LV and RV thrombus Plan: - Optimized via [place] with the closing hemodynamics of RA= 8, PA= 47/20/35, CI= 2.1, CO= 4.6, MVO2= 47 - PT/OT - Will likely need an ICD -> needs education regarding it Cardiogenic shock 09/26/2018 10/09/2018 Overview: - initial [place] with RA: 12 mmHg, RV: 42/12 mmHg, PA: 48/28 mmHg, mean PAP: 40 mmmHg, Wedge: 32 mmHg - initial CO 3, CI 1.4, VBG with SvO2 43% Plan: - Optimized with NTP Acute liver failure without hepatic coma 019 10/09/2018 Overview: New onset elevation in AST/ALT with normal ALP Mildly elevated T. Bili LDH elevated with thrombocytopenia Etiology - cardiogenic ischemic hepatitis vs hypotensive vs thromboembolic Liver vascular US with patent liver vasculature Plan: - Trend LFT's - Correct INR - Work up for thrombocytopenia and hypercoagulable state documented as of this encounter (statuses as of 08/17/2021) [facility] History of Past illness Narrative* Problem Noted Date Resolved Date Acute deep vein thrombosis ( DVT) of popliteal vein of right lower extremity 09/30/2018 10/09/2018 Febrile 09/29/2018 10/09/2018 Overview: - febrile since 09/28/18 - infectious w/u negative thus far Plan: - f/u on blood cultures, u/a, respiratory cultures - continue vancomycin and zosyn Hypo-osmolality and hyponatremia 09/29/2018 10/09/2018 ATN (acute tubular necrosis) 09/26/201808/2018 Overview: - Presenting with creatinine of 2.53 - Baseline creatinine 1.09 as of 07-08-18 - No urine output while at OSH - Unclear etiology - likely cardio renal given worsening LFT's vs vasomotor nephropathy - improving Plan: - Monitor I and O strictly - Weight daily - standing weights if able - Trend creatinine - Avoid nephrotoxic agents - Renally dose medications Acute on chronic systolic heart failure 09/27/19 19 10/09/2018 Overview: - Known EF of 25% per careeverywhere - ICM with biventricular failure - New onset atrial flutter -> ?decompensating HF - Declined ICD in the past due to ?inappropraite triggering of ?lifevest (external ICD per patient) - TTE concerning for LV and RV thrombus Plan: - Optimized via [place] with the closing hemodynamics of RA= 8, PA= 47/20/35, CI= 2.1, CO= 4.6, MVO2= 47 - PT/OT - Will likely need an ICD -> needs education regarding it Cardiogenic shock 09/26/2018 10/09/2018 Overview: - initial [place] with RA: 12 mmHg, RV: 42/12 mmHg, PA: 48/28 mmHg, mean PAP: 40 mmmHg, Wedge: 32 mmHg - initial CO 3, CI 1.4, VBG with SvO2 43% Plan: - Optimized with NTP Acute liver failure without hepatic coma 019 10/09/2018 Overview: New onset elevation in AST/ALT with normal ALP Mildly elevated T. Bili LDH elevated with thrombocytopenia Etiology - cardiogenic ischemic hepatitis vs hypotensive vs thromboembolic Liver vascular US with patent liver vasculature Plan: - Trend LFT's - Correct INR - Work up for thrombocytopenia and hypercoagulable state documented as of this encounter (statuses as of 08/20/2021) [facility] History of Past illness Narrative* Problem Noted Date Resolved Date Acute deep vein thrombosis ( DVT) of popliteal vein of right lower extremity 09/30/2018 10/09/2018 Febrile 09/29/2018 10/09/2018 Overview: - febrile since 09/28/18 - infectious w/u negative thus far Plan: - f/u on blood cultures, u/a, respiratory cultures - continue vancomycin and zosyn Hypo-osmolality and hyponatremia 09/29/2018 10/09/2018 ATN (acute tubular necrosis) 09/26/201808/2018 Overview: - Presenting with creatinine of 2.53 - Baseline creatinine 1.09 as of 07-08-18 - No urine output while at OSH - Unclear etiology - likely cardio renal given worsening LFT's vs vasomotor nephropathy - improving Plan: - Monitor I and O strictly - Weight daily - standing weights if able - Trend creatinine - Avoid nephrotoxic agents - Renally dose medications Acute on chronic systolic heart failure 09/27/19 19 10/09/2018 Overview: - Known EF of 25% per careeverywhere - ICM with biventricular failure - New onset atrial flutter -> ?decompensating HF - Declined ICD in the past due to ?inappropraite triggering of ?lifevest (external ICD per patient) - TTE concerning for LV and RV thrombus Plan: - Optimized via [place] with the closing hemodynamics of RA= 8, PA= 47/20/35, CI= 2.1, CO= 4.6, MVO2= 47 - PT/OT - Will likely need an ICD -> needs education regarding it Cardiogenic shock 09/26/2018 10/09/2018 Overview: - initial [place] with RA: 12 mmHg, RV: 42/12 mmHg, PA: 48/28 mmHg, mean PAP: 40 mmmHg, Wedge: 32 mmHg - initial CO 3, CI 1.4, VBG with SvO2 43% Plan: - Optimized with NTP Acute liver failure without hepatic coma 019 10/09/2018 Overview: New onset elevation in AST/ALT with normal ALP Mildly elevated T. Bili LDH elevated with thrombocytopenia Etiology - cardiogenic ischemic hepatitis vs hypotensive vs thromboembolic Liver vascular US with patent liver vasculature Plan: - Trend LFT's - Correct INR - Work up for thrombocytopenia and hypercoagulable state documented as of this encounter (statuses as of 10/05/2021) [facility]2019 History of Past illness Narrative* Problem Noted Date Resolved Date Acute deep vein thrombosis ( DVT) of popliteal vein of right lower extremity 09/30/2018 10/09/2018 Febrile 09/29/2018 10/09/2018 Overview: - febrile since 09/28/18 - infectious w/u negative thus far Plan: - f/u on blood cultures, u/a, respiratory cultures - continue vancomycin and zosyn Hypo-osmolality and hyponatremia 09/29/2018 10/09/2018 ATN (acute tubular necrosis) 09/26/201808/2018 Overview: - Presenting with creatinine of 2.53 - Baseline creatinine 1.09 as of 07-08-18 - No urine output while at OSH - Unclear etiology - likely cardio renal given worsening LFT's vs vasomotor nephropathy - improving Plan: - Monitor I and O strictly - Weight daily - standing weights if able - Trend creatinine - Avoid nephrotoxic agents - Renally dose medications Acute on chronic systolic heart failure 09/27/1910/09/2018 Overview: - Known EF of 25% per careeverywhere - ICM with biventricular failure - New onset atrial flutter -> ?decompensating HF - Declined ICD in the past due to ?inappropraite triggering of ?lifevest (external ICD per patient) - TTE concerning for LV and RV thrombus Plan: - Optimized via [place] with the closing hemodynamics of RA= 8, PA= 47/20/35, CI= 2.1, CO= 4.6, MVO2= 47 - PT/OT - Will likely need an ICD -> needs education regarding it Cardiogenic shock 09/26/2018 10/09/2018 Overview: - initial [place] with RA: 12 mmHg, RV: 42/12 mmHg, PA: 48/28 mmHg, mean PAP: 40 mmmHg, Wedge: 32 mmHg - initial CO 3, CI 1.4, VBG with SvO2 43% Plan: - Optimized with NTP Acute liver failure without hepatic coma 019 10/09/2018 Overview: New onset elevation in AST/ALT with normal ALP Mildly elevated T. Bili LDH elevated with thrombocytopenia Etiology - cardiogenic ischemic hepatitis vs hypotensive vs thromboembolic Liver vascular US with patent liver vasculature Plan: - Trend LFT's - Correct INR - Work up for thrombocytopenia and hypercoagulable state documented as of this encounter (statuses as of 10/12/2021) [facility]2019 History of Past illness Narrative* Problem Noted Date Resolved Date Acute deep vein thrombosis ( DVT) of popliteal vein of right lower extremity 09/30/2018 10/09/2018 Febrile 09/29/2018 10/09/2018 Overview: - febrile since 09/28/18 - infectious w/u negative thus far Plan: - f/u on blood cultures, u/a, respiratory cultures - continue vancomycin and zosyn Hypo-osmolality and hyponatremia 09/29/2018 10/09/2018 ATN (acute tubular necrosis) 09/26/201808/2018 Overview: - Presenting with creatinine of 2.53 - Baseline creatinine 1.09 as of 07-08-18 - No urine output while at OSH - Unclear etiology - likely cardio renal given worsening LFT's vs vasomotor nephropathy - improving Plan: - Monitor I and O strictly - Weight daily - standing weights if able - Trend creatinine - Avoid nephrotoxic agents - Renally dose medications Acute on chronic systolic heart failure 09/27/19 19 10/09/2018 Overview: - Known EF of 25% per careeverywhere - ICM with biventricular failure - New onset atrial flutter -> ?decompensating HF - Declined ICD in the past due to ?inappropraite triggering of ?lifevest (external ICD per patient) - TTE concerning for LV and RV thrombus Plan: - Optimized via [place] with the closing hemodynamics of RA= 8, PA= 47/20/35, CI= 2.1, CO= 4.6, MVO2= 47 - PT/OT - Will likely need an ICD -> needs education regarding it Cardiogenic shock 09/26/2018 10/09/2018 Overview: - initial [place] with RA: 12 mmHg, RV: 42/12 mmHg, PA: 48/28 mmHg, mean PAP: 40 mmmHg, Wedge: 32 mmHg - initial CO 3, CI 1.4, VBG with SvO2 43% Plan: - Optimized with NTP Acute liver failure without hepatic coma 019 10/09/2018 Overview: New onset elevation in AST/ALT with normal ALP Mildly elevated T. Bili LDH elevated with thrombocytopenia Etiology - cardiogenic ischemic hepatitis vs hypotensive vs thromboembolic Liver vascular US with patent liver vasculature Plan: - Trend LFT's - Correct INR - Work up for thrombocytopenia and hypercoagulable state documented as of this encounter (statuses as of 01/02/2022) [facility]2019 History of Past illness Narrative* Problem Noted Date Resolved Date Acute deep vein thrombosis ( DVT) of popliteal vein of right lower extremity 09/30/2018 10/09/2018 Febrile 09/29/2018 10/09/2018 Overview: - febrile since 09/28/18 - infectious w/u negative thus far Plan: - f/u on blood cultures, u/a, respiratory cultures - continue vancomycin and zosyn Hypo-osmolality and hyponatremia 09/29/2018 10/09/2018 ATN (acute tubular necrosis) 09/26/201808/2018 Overview: - Presenting with creatinine of 2.53 - Baseline creatinine 1.09 as of 07-08-18 - No urine output while at OSH - Unclear etiology - likely cardio renal given worsening LFT's vs vasomotor nephropathy - improving Plan: - Monitor I and O strictly - Weight daily - standing weights if able - Trend creatinine - Avoid nephrotoxic agents - Renally dose medications Acute on chronic systolic heart failure 09/27/19 19 10/09/2018 Overview: - Known EF of 25% per careeverywhere - ICM with biventricular failure - New onset atrial flutter -> ?decompensating HF - Declined ICD in the past due to ?inappropraite triggering of ?lifevest (external ICD per patient) - TTE concerning for LV and RV thrombus Plan: - Optimized via [place] with the closing hemodynamics of RA= 8, PA= 47/20/35, CI= 2.1, CO= 4.6, MVO2= 47 - PT/OT - Will likely need an ICD -> needs education regarding it Cardiogenic shock 09/26/2018 10/09/2018 Overview: - initial [place] with RA: 12 mmHg, RV: 42/12 mmHg, PA: 48/28 mmHg, mean PAP: 40 mmmHg, Wedge: 32 mmHg - initial CO 3, CI 1.4, VBG with SvO2 43% Plan: - Optimized with NTP Acute liver failure without hepatic coma 019 10/09/2018 Overview: New onset elevation in AST/ALT with normal ALP Mildly elevated T. Bili LDH elevated with thrombocytopenia Etiology - cardiogenic ischemic hepatitis vs hypotensive vs thromboembolic Liver vascular US with patent liver vasculature Plan: - Trend LFT's - Correct INR - Work up for thrombocytopenia and hypercoagulable state documented as of this encounter (statuses as of 01/02/2022) [facility] History of Past illness Narrative* Problem Noted Date Resolved Date Acute deep vein thrombosis ( DVT) of popliteal vein of right lower extremity 09/30/2018 10/09/2018 Febrile 09/29/2018 10/09/2018 Overview: - febrile since 09/28/18 - infectious w/u negative thus far Plan: - f/u on blood cultures, u/a, respiratory cultures - continue vancomycin and zosyn Hypo-osmolality and hyponatremia 09/29/2018 10/09/2018 ATN (acute tubular necrosis) 09/26/201808/2018 Overview: - Presenting with creatinine of 2.53 - Baseline creatinine 1.09 as of 07-08-18 - No urine output while at OSH - Unclear etiology - likely cardio renal given worsening LFT's vs vasomotor nephropathy - improving Plan: - Monitor I and O strictly - Weight daily - standing weights if able - Trend creatinine - Avoid nephrotoxic agents - Renally dose medications Acute on chronic systolic heart failure 09/27/19 19 10/09/2018 Overview: - Known EF of 25% per careeverywhere - ICM with biventricular failure - New onset atrial flutter -> ?decompensating HF - Declined ICD in the past due to ?inappropraite triggering of ?lifevest (external ICD per patient) - TTE concerning for LV and RV thrombus Plan: - Optimized via [place] with the closing hemodynamics of RA= 8, PA= 47/20/35, CI= 2.1, CO= 4.6, MVO2= 47 - PT/OT - Will likely need an ICD -> needs education regarding it Cardiogenic shock 09/26/2018 10/09/2018 Overview: - initial [place] with RA: 12 mmHg, RV: 42/12 mmHg, PA: 48/28 mmHg, mean PAP: 40 mmmHg, Wedge: 32 mmHg - initial CO 3, CI 1.4, VBG with SvO2 43% Plan: - Optimized with NTP Acute liver failure without hepatic coma 019 10/09/2018 Overview: New onset elevation in AST/ALT with normal ALP Mildly elevated T. Bili LDH elevated with thrombocytopenia Etiology - cardiogenic ischemic hepatitis vs hypotensive vs thromboembolic Liver vascular US with patent liver vasculature Plan: - Trend LFT's - Correct INR - Work up for thrombocytopenia and hypercoagulable state documented as of this encounter (statuses as of 01/02/2022) [place] [id number] History of Past illness Narrative* Problem Noted Date Resolved Date Acute deep vein thrombosis ( DVT) of popliteal vein of right lower extremity 09/30/2018 10/09/2018 Febrile 09/29/2018 10/09/2018 Overview: - febrile since 09/28/18 - infectious w/u negative thus far Plan: - f/u on blood cultures, u/a, respiratory cultures - continue vancomycin and zosyn Hypo-osmolality and hyponatremia 09/29/2018 10/09/2018 ATN (acute tubular necrosis) 09/26/201808/2018 Overview: - Presenting with creatinine of 2.53 - Baseline creatinine 1.09 as of -06-23 - No urine output while at OSH - Unclear etiology - likely cardio renal given worsening LFT's vs vasomotor nephropathy - improving Plan: - Monitor I and O strictly - Weight daily - standing weights if able - Trend creatinine - Avoid nephrotoxic agents - Renally dose medications Acute on chronic systolic heart failure 09/27/1910/09/2018 Overview: - Known EF of 25% per careeverywhere - ICM with biventricular failure - New onset atrial flutter -> ?decompensating HF - Declined ICD in the past due to ?inappropraite triggering of ?lifevest (external ICD per patient) - TTE concerning for LV and RV thrombus Plan: - Optimized via [place] with the closing hemodynamics of RA= 8, PA= 47/20/35, CI= 2.1, CO= 4.6, MVO2= 47 - PT/OT - Will likely need an ICD -> needs education regarding it Cardiogenic shock 09/26/2018 10/09/2018 Overview: - initial [place] with RA: 12 mmHg, RV: 42/12 mmHg, PA: 48/28 mmHg, mean PAP: 40 mmmHg, Wedge: 32 mmHg - initial CO 3, CI 1.4, VBG with SvO2 43% Plan: - Optimized with NTP Acute liver failure without hepatic coma 019 10/09/2018 Overview: New onset elevation in AST/ALT with normal ALP Mildly elevated T. Bili LDH elevated with thrombocytopenia Etiology - cardiogenic ischemic hepatitis vs hypotensive vs thromboembolic Liver vascular US with patent liver vasculature Plan: - Trend LFT's - Correct INR - Work up for thrombocytopenia and hypercoagulable state documented as of this encounter (statuses as of 01/16/2022) [facility] History of Past illness Narrative* Problem Noted Date Resolved Date Acute deep vein thrombosis ( DVT) of popliteal vein of right lower extremity 09/30/2018 10/09/2018 Febrile 09/29/2018 10/09/2018 Overview: - febrile since 09/28/18 - infectious w/u negative thus far Plan: - f/u on blood cultures, u/a, respiratory cultures - continue vancomycin and zosyn Hypo-osmolality and hyponatremia 09/29/2018 10/09/2018 ATN (acute tubular necrosis) 09/26/201808/2018 Overview: - Presenting with creatinine of 2.53 - Baseline creatinine 1.09 as of 07-08-18 - No urine output while at OSH - Unclear etiology - likely cardio renal given worsening LFT's vs vasomotor nephropathy - improving Plan: - Monitor I and O strictly - Weight daily - standing weights if able - Trend creatinine - Avoid nephrotoxic agents - Renally dose medications Acute on chronic systolic heart failure 09/27/19 19 10/09/2018 Overview: - Known EF of 25% per careeverywhere - ICM with biventricular failure - New onset atrial flutter -> ?decompensating HF - Declined ICD in the past due to ?inappropraite triggering of ?lifevest (external ICD per patient) - TTE concerning for LV and RV thrombus Plan: - Optimized via [place] with the closing hemodynamics of RA= 8, PA= 47/20/35, CI= 2.1, CO= 4.6, MVO2= 47 - PT/OT - Will likely need an ICD -> needs education regarding it Cardiogenic shock 09/26/2018 10/09/2018 Overview: - initial [place] with RA: 12 mmHg, RV: 42/12 mmHg, PA: 48/28 mmHg, mean PAP: 40 mmmHg, Wedge: 32 mmHg - initial CO 3, CI 1.4, VBG with SvO2 43% Plan: - Optimized with NTP Acute liver failure without hepatic coma 019 10/09/2018 Overview: New onset elevation in AST/ALT with normal ALP Mildly elevated T. Bili LDH elevated with thrombocytopenia Etiology - cardiogenic ischemic hepatitis vs hypotensive vs thromboembolic Liver vascular US with patent liver vasculature Plan: - Trend LFT's - Correct INR - Work up for thrombocytopenia and hypercoagulable state documented as of this encounter (statuses as of 04/12/2022) [facility] History of Past illness Narrative* Problem Noted Date Resolved Date Acute deep vein thrombosis ( DVT) of popliteal vein of right lower extremity 09/30/2018 10/09/2018 Febrile 09/29/2018 10/09/2018 Overview: - febrile since 09/28/18 - infectious w/u negative thus far Plan: - f/u on blood cultures, u/a, respiratory cultures - continue vancomycin and zosyn Hypo-osmolality and hyponatremia 09/29/2018 10/09/2018 ATN (acute tubular necrosis) 09/26/201808/2018 Overview: - Presenting with creatinine of 2.53 - Baseline creatinine 1.09 as of 07-08-18 - No urine output while at OSH - Unclear etiology - likely cardio renal given worsening LFT's vs vasomotor nephropathy - improving Plan: - Monitor I and O strictly - Weight daily - standing weights if able - Trend creatinine - Avoid nephrotoxic agents - Renally dose medications Acute on chronic systolic heart failure 09/27/19 19 10/09/2018 Overview: - Known EF of 25% per careeverywhere - ICM with biventricular failure - New onset atrial flutter -> ?decompensating HF - Declined ICD in the past due to ?inappropraite triggering of ?lifevest (external ICD per patient) - TTE concerning for LV and RV thrombus Plan: - Optimized via [place] with the closing hemodynamics of RA= 8, PA= 47/20/35, CI= 2.1, CO= 4.6, MVO2= 47 - PT/OT - Will likely need an ICD -> needs education regarding it Cardiogenic shock 09/26/2018 10/09/2018 Overview: - initial [place] with RA: 12 mmHg, RV: 42/12 mmHg, PA: 48/28 mmHg, mean PAP: 40 mmmHg, Wedge: 32 mmHg - initial CO 3, CI 1.4, VBG with SvO2 43% Plan: - Optimized with NTP Acute liver failure without hepatic coma 019 10/09/2018 Overview: New onset elevation in AST/ALT with normal ALP Mildly elevated T. Bili LDH elevated with thrombocytopenia Etiology - cardiogenic ischemic hepatitis vs hypotensive vs thromboembolic Liver vascular US with patent liver vasculature Plan: - Trend LFT's - Correct INR - Work up for thrombocytopenia and hypercoagulable state documented as of this encounter (statuses as of 04/16/2022) [facility] History of Past illness Narrative* Problem Noted Date Resolved Date Acute deep vein thrombosis ( DVT) of popliteal vein of right lower extremity 09/30/2018 10/09/2018 Febrile 09/29/2018 10/09/2018 Overview: - febrile since 09/28/18 - infectious w/u negative thus far Plan: - f/u on blood cultures, u/a, respiratory cultures - continue vancomycin and zosyn Hypo-osmolality and hyponatremia 09/29/2018 10/09/2018 ATN (acute tubular necrosis) 09/26/201808/2018 Overview: - Presenting with creatinine of 2.53 - Baseline creatinine 1.09 as of 07-08-18 - No urine output while at OSH - Unclear etiology - likely cardio renal given worsening LFT's vs vasomotor nephropathy - improving Plan: - Monitor I and O strictly - Weight daily - standing weights if able - Trend creatinine - Avoid nephrotoxic agents - Renally dose medications Acute on chronic systolic heart failure 09/27/1910/09/2018 Overview: - Known EF of 25% per careeverywhere - ICM with biventricular failure - New onset atrial flutter -> ?decompensating HF - Declined ICD in the past due to ?inappropraite triggering of ?lifevest (external ICD per patient) - TTE concerning for LV and RV thrombus Plan: - Optimized via [place] with the closing hemodynamics of RA= 8, PA= 47/20/35, CI= 2.1, CO= 4.6, MVO2= 47 - PT/OT - Will likely need an ICD -> needs education regarding it Cardiogenic shock 09/26/2018 10/09/2018 Overview: - initial [place] with RA: 12 mmHg, RV: 42/12 mmHg, PA: 48/28 mmHg, mean PAP: 40 mmmHg, Wedge: 32 mmHg - initial CO 3, CI 1.4, VBG with SvO2 43% Plan: - Optimized with NTP Acute liver failure without hepatic coma 019 10/09/2018 Overview: New onset elevation in AST/ALT with normal ALP Mildly elevated T. Bili LDH elevated with thrombocytopenia Etiology - cardiogenic ischemic hepatitis vs hypotensive vs thromboembolic Liver vascular US with patent liver vasculature Plan: - Trend LFT's - Correct INR - Work up for thrombocytopenia and hypercoagulable state documented as of this encounter (statuses as of 04/17/2022) [facility] History of Past illness Narrative* Problem Noted Date Resolved Date Acute deep vein thrombosis ( DVT) of popliteal vein of right lower extremity 09/30/2018 10/09/2018 Febrile 09/29/2018 10/09/2018 Overview: - febrile since 09/28/18 - infectious w/u negative thus far Plan: - f/u on blood cultures, u/a, respiratory cultures - continue vancomycin and zosyn Hypo-osmolality and hyponatremia 09/29/2018 10/09/2018 ATN (acute tubular necrosis) 09/26/201808/2018 Overview: - Presenting with creatinine of 2.53 - Baseline creatinine 1.09 as of 4-3-19 - No urine output while at OSH - Unclear etiology - likely cardio renal given worsening LFT's vs vasomotor nephropathy - improving Plan: - Monitor I and O strictly - Weight daily - standing weights if able - Trend creatinine - Avoid nephrotoxic agents - Renally dose medications Acute on chronic systolic heart failure 09/27/19 19 10/09/2018 Overview: - Known EF of 25% per careeverywhere - ICM with biventricular failure - New onset atrial flutter -> ?decompensating HF - Declined ICD in the past due to ?inappropraite triggering of ?lifevest (external ICD per patient) - TTE concerning for LV and RV thrombus Plan: - Optimized via [place] with the closing hemodynamics of RA= 8, PA= 47/20/35, CI= 2.1, CO= 4.6, MVO2= 47 - PT/OT - Will likely need an ICD -> needs education regarding it Cardiogenic shock 09/26/2018 10/09/2018 Overview: - initial [place] with RA: 12 mmHg, RV: 42/12 mmHg, PA: 48/28 mmHg, mean PAP: 40 mmmHg, Wedge: 32 mmHg - initial CO 3, CI 1.4, VBG with SvO2 43% Plan: - Optimized with NTP Acute liver failure without hepatic coma 019 10/09/2018 Overview: New onset elevation in AST/ALT with normal ALP Mildly elevated T. Bili LDH elevated with thrombocytopenia Etiology - cardiogenic ischemic hepatitis vs hypotensive vs thromboembolic Liver vascular US with patent liver vasculature Plan: - Trend LFT's - Correct INR - Work up for thrombocytopenia and hypercoagulable state documented as of this encounter (statuses as of 04/18/2022) [facility] History of Past illness Narrative* Problem Noted Date Resolved Date Acute deep vein thrombosis ( DVT) of popliteal vein of right lower extremity 09/30/2018 10/09/2018 Febrile 09/29/2018 10/09/2018 Overview: - febrile since 09/28/18 - infectious w/u negative thus far Plan: - f/u on blood cultures, u/a, respiratory cultures - continue vancomycin and zosyn Hypo-osmolality and hyponatremia 09/29/2018 10/09/2018 ATN (acute tubular necrosis) 09/26/201808/2018 Overview: - Presenting with creatinine of 2.53 - Baseline creatinine 1.09 as of 07-08-18 - No urine output while at OSH - Unclear etiology - likely cardio renal given worsening LFT's vs vasomotor nephropathy - improving Plan: - Monitor I and O strictly - Weight daily - standing weights if able - Trend creatinine - Avoid nephrotoxic agents - Renally dose medications Acute on chronic systolic heart failure 09/27/1910/09/2018 Overview: - Known EF of 25% per careeverywhere - ICM with biventricular failure - New onset atrial flutter -> ?decompensating HF - Declined ICD in the past due to ?inappropraite triggering of ?lifevest (external ICD per patient) - TTE concerning for LV and RV thrombus Plan: - Optimized via [place] with the closing hemodynamics of RA= 8, PA= 47/20/35, CI= 2.1, CO= 4.6, MVO2= 47 - PT/OT - Will likely need an ICD -> needs education regarding it Cardiogenic shock 09/26/2018 10/09/2018 Overview: - initial [place] with RA: 12 mmHg, RV: 42/12 mmHg, PA: 48/28 mmHg, mean PAP: 40 mmmHg, Wedge: 32 mmHg - initial CO 3, CI 1.4, VBG with SvO2 43% Plan: - Optimized with NTP Acute liver failure without hepatic coma 019 10/09/2018 Overview: New onset elevation in AST/ALT with normal ALP Mildly elevated T. Bili LDH elevated with thrombocytopenia Etiology - cardiogenic ischemic hepatitis vs hypotensive vs thromboembolic Liver vascular US with patent liver vasculature Plan: - Trend LFT's - Correct INR - Work up for thrombocytopenia and hypercoagulable state documented as of this encounter (statuses as of 04/25/2022) [facility] History of Past illness Narrative* Problem Noted Date Resolved Date Acute deep vein thrombosis ( DVT) of popliteal vein of right lower extremity 09/30/2018 10/09/2018 Febrile 09/29/2018 10/09/2018 Overview: - febrile since 09/28/18 - infectious w/u negative thus far Plan: - f/u on blood cultures, u/a, respiratory cultures - continue vancomycin and zosyn Hypo-osmolality and hyponatremia 09/29/2018 10/09/2018 ATN (acute tubular necrosis) 09/26/201808/2018 Overview: - Presenting with creatinine of 2.53 - Baseline creatinine 1.09 as of 07-08-18 - No urine output while at OSH - Unclear etiology - likely cardio renal given worsening LFT's vs vasomotor nephropathy - improving Plan: - Monitor I and O strictly - Weight daily - standing weights if able - Trend creatinine - Avoid nephrotoxic agents - Renally dose medications Acute on chronic systolic heart failure 09/27/1910/09/2018 Overview: - Known EF of 25% per careeverywhere - ICM with biventricular failure - New onset atrial flutter -> ?decompensating HF - Declined ICD in the past due to ?inappropraite triggering of ?lifevest (external ICD per patient) - TTE concerning for LV and RV thrombus Plan: - Optimized via [place] with the closing hemodynamics of RA= 8, PA= 47/20/35, CI= 2.1, CO= 4.6, MVO2= 47 - PT/OT - Will likely need an ICD -> needs education regarding it Cardiogenic shock 09/26/2018 10/09/2018 Overview: - initial [place] with RA: 12 mmHg, RV: 42/12 mmHg, PA: 48/28 mmHg, mean PAP: 40 mmmHg, Wedge: 32 mmHg - initial CO 3, CI 1.4, VBG with SvO2 43% Plan: - Optimized with NTP Acute liver failure without hepatic coma 019 10/09/2018 Overview: New onset elevation in AST/ALT with normal ALP Mildly elevated T. Bili LDH elevated with thrombocytopenia Etiology - cardiogenic ischemic hepatitis vs hypotensive vs thromboembolic Liver vascular US with patent liver vasculature Plan: - Trend LFT's - Correct INR - Work up for thrombocytopenia and hypercoagulable state documented as of this encounter (statuses as of 04/25/2022) [facility] History of Past illness Narrative* Problem Noted Date Resolved Date Acute deep vein thrombosis ( DVT) of popliteal vein of right lower extremity 09/30/2018 10/09/2018 Febrile 09/29/2018 10/09/2018 Overview: - febrile since 09/28/18 - infectious w/u negative thus far Plan: - f/u on blood cultures, u/a, respiratory cultures - continue vancomycin and zosyn Hypo-osmolality and hyponatremia 09/29/2018 10/09/2018 ATN (acute tubular necrosis) 09/26/201808/2018 Overview: - Presenting with creatinine of 2.53 - Baseline creatinine 1.09 as of 07-08-18 - No urine output while at OSH - Unclear etiology - likely cardio renal given worsening LFT's vs vasomotor nephropathy - improving Plan: - Monitor I and O strictly - Weight daily - standing weights if able - Trend creatinine - Avoid nephrotoxic agents - Renally dose medications Acute on chronic systolic heart failure 09/27/1910/09/2018 Overview: - Known EF of 25% per careeverywhere - ICM with biventricular failure - New onset atrial flutter -> ?decompensating HF - Declined ICD in the past due to ?inappropraite triggering of ?lifevest (external ICD per patient) - TTE concerning for LV and RV thrombus Plan: - Optimized via [place] with the closing hemodynamics of RA= 8, PA= 47/20/35, CI= 2.1, CO= 4.6, MVO2= 47 - PT/OT - Will likely need an ICD -> needs education regarding it Cardiogenic shock 09/26/2018 10/09/2018 Overview: - initial [place] with RA: 12 mmHg, RV: 42/12 mmHg, PA: 48/28 mmHg, mean PAP: 40 mmmHg, Wedge: 32 mmHg - initial CO 3, CI 1.4, VBG with SvO2 43% Plan: - Optimized with NTP Acute liver failure without hepatic coma 019 10/09/2018 Overview: New onset elevation in AST/ALT with normal ALP Mildly elevated T. Bili LDH elevated with thrombocytopenia Etiology - cardiogenic ischemic hepatitis vs hypotensive vs thromboembolic Liver vascular US with patent liver vasculature Plan: - Trend LFT's - Correct INR - Work up for thrombocytopenia and hypercoagulable state documented as of this encounter (statuses as of 05/14/2022) [facility] History of Past illness Narrative* Problem Noted Date Resolved Date Acute deep vein thrombosis ( DVT) of popliteal vein of right lower extremity 09/30/2018 10/09/2018 Febrile 09/29/2018 10/09/2018 Overview: - febrile since 09/28/18 - infectious w/u negative thus far Plan: - f/u on blood cultures, u/a, respiratory cultures - continue vancomycin and zosyn Hypo-osmolality and hyponatremia 09/29/2018 10/09/2018 ATN (acute tubular necrosis) 09/26/201808/2018 Overview: - Presenting with creatinine of 2.53 - Baseline creatinine 1.09 as of 07-08-18 - No urine output while at OSH - Unclear etiology - likely cardio renal given worsening LFT's vs vasomotor nephropathy - improving Plan: - Monitor I and O strictly - Weight daily - standing weights if able - Trend creatinine - Avoid nephrotoxic agents - Renally dose medications Acute on chronic systolic heart failure 09/27/19 19 10/09/2018 Overview: - Known EF of 25% per careeverywhere - ICM with biventricular failure - New onset atrial flutter -> ?decompensating HF - Declined ICD in the past due to ?inappropraite triggering of ?lifevest (external ICD per patient) - TTE concerning for LV and RV thrombus Plan: - Optimized via [place] with the closing hemodynamics of RA= 8, PA= 47/20/35, CI= 2.1, CO= 4.6, MVO2= 47 - PT/OT - Will likely need an ICD -> needs education regarding it Cardiogenic shock 09/26/2018 10/09/2018 Overview: - initial [place] with RA: 12 mmHg, RV: 42/12 mmHg, PA: 48/28 mmHg, mean PAP: 40 mmmHg, Wedge: 32 mmHg - initial CO 3, CI 1.4, VBG with SvO2 43% Plan: - Optimized with NTP Acute liver failure without hepatic coma 019 10/09/2018 Overview: New onset elevation in AST/ALT with normal ALP Mildly elevated T. Bili LDH elevated with thrombocytopenia Etiology - cardiogenic ischemic hepatitis vs hypotensive vs thromboembolic Liver vascular US with patent liver vasculature Plan: - Trend LFT's - Correct INR - Work up for thrombocytopenia and hypercoagulable state documented as of this encounter (statuses as of 06/10/2022) [facility] History of Past illness Narrative* Problem Noted Date Resolved Date Acute deep vein thrombosis ( DVT) of popliteal vein of right lower extremity 09/30/2018 10/09/2018 Febrile 09/29/2018 10/09/2018 Overview: - febrile since 09/28/18 - infectious w/u negative thus far Plan: - f/u on blood cultures, u/a, respiratory cultures - continue vancomycin and zosyn Hypo-osmolality and hyponatremia 09/29/2018 10/09/2018 ATN (acute tubular necrosis) 09/26/201808/2018 Overview: - Presenting with creatinine of 2.53 - Baseline creatinine 1.09 as of 07-08-18 - No urine output while at OSH - Unclear etiology - likely cardio renal given worsening LFT's vs vasomotor nephropathy - improving Plan: - Monitor I and O strictly - Weight daily - standing weights if able - Trend creatinine - Avoid nephrotoxic agents - Renally dose medications Acute on chronic systolic heart failure 09/27/1910/09/2018 Overview: - Known EF of 25% per careeverywhere - ICM with biventricular failure - New onset atrial flutter -> ?decompensating HF - Declined ICD in the past due to ?inappropraite triggering of ?lifevest (external ICD per patient) - TTE concerning for LV and RV thrombus Plan: - Optimized via [place] with the closing hemodynamics of RA= 8, PA= 47/20/35, CI= 2.1, CO= 4.6, MVO2= 47 - PT/OT - Will likely need an ICD -> needs education regarding it Cardiogenic shock 09/26/2018 10/09/2018 Overview: - initial [place] with RA: 12 mmHg, RV: 42/12 mmHg, PA: 48/28 mmHg, mean PAP: 40 mmmHg, Wedge: 32 mmHg - initial CO 3, CI 1.4, VBG with SvO2 43% Plan: - Optimized with NTP Acute liver failure without hepatic coma 019 10/09/2018 Overview: New onset elevation in AST/ALT with normal ALP Mildly elevated T. Bili LDH elevated with thrombocytopenia Etiology - cardiogenic ischemic hepatitis vs hypotensive vs thromboembolic Liver vascular US with patent liver vasculature Plan: - Trend LFT's - Correct INR - Work up for thrombocytopenia and hypercoagulable state documented as of this encounter (statuses as of 06/20/2022) [facility] History of Past illness Narrative* Problem Noted Date Resolved Date Acute deep vein thrombosis ( DVT) of popliteal vein of right lower extremity 09/30/2018 10/09/2018 Febrile 09/29/2018 10/09/2018 Overview: - febrile since 09/28/18 - infectious w/u negative thus far Plan: - f/u on blood cultures, u/a, respiratory cultures - continue vancomycin and zosyn Hypo-osmolality and hyponatremia 09/29/2018 10/09/2018 ATN (acute tubular necrosis) 09/26/201808/2018 Overview: - Presenting with creatinine of 2.53 - Baseline creatinine 1.09 as of 07-08-18 - No urine output while at OSH - Unclear etiology - likely cardio renal given worsening LFT's vs vasomotor nephropathy - improving Plan: - Monitor I and O strictly - Weight daily - standing weights if able - Trend creatinine - Avoid nephrotoxic agents - Renally dose medications Acute on chronic systolic heart failure 09/27/1910/09/2018 Overview: - Known EF of 25% per careeverywhere - ICM with biventricular failure - New onset atrial flutter -> ?decompensating HF - Declined ICD in the past due to ?inappropraite triggering of ?lifevest (external ICD per patient) - TTE concerning for LV and RV thrombus Plan: - Optimized via [place] with the closing hemodynamics of RA= 8, PA= 47/20/35, CI= 2.1, CO= 4.6, MVO2= 47 - PT/OT - Will likely need an ICD -> needs education regarding it Cardiogenic shock 09/26/2018 10/09/2018 Overview: - initial [place] with RA: 12 mmHg, RV: 42/12 mmHg, PA: 48/28 mmHg, mean PAP: 40 mmmHg, Wedge: 32 mmHg - initial CO 3, CI 1.4, VBG with SvO2 43% Plan: - Optimized with NTP Acute liver failure without hepatic coma 019 10/09/2018 Overview: New onset elevation in AST/ALT with normal ALP Mildly elevated T. Bili LDH elevated with thrombocytopenia Etiology - cardiogenic ischemic hepatitis vs hypotensive vs thromboembolic Liver vascular US with patent liver vasculature Plan: - Trend LFT's - Correct INR - Work up for thrombocytopenia and hypercoagulable state documented as of this encounter (statuses as of 06/27/2022) [facility] History of Past illness Narrative* Problem Noted Date Resolved Date Acute deep vein thrombosis ( DVT) of popliteal vein of right lower extremity 09/30/2018 10/09/2018 Febrile 09/29/2018 10/09/2018 Overview: - febrile since 09/28/18 - infectious w/u negative thus far Plan: - f/u on blood cultures, u/a, respiratory cultures - continue vancomycin and zosyn Hypo-osmolality and hyponatremia 09/29/2018 10/09/2018 ATN (acute tubular necrosis) 09/26/201808/2018 Overview: - Presenting with creatinine of 2.53 - Baseline creatinine 1.09 as of -06-23 - No urine output while at OSH - Unclear etiology - likely cardio renal given worsening LFT's vs vasomotor nephropathy - improving Plan: - Monitor I and O strictly - Weight daily - standing weights if able - Trend creatinine - Avoid nephrotoxic agents - Renally dose medications Acute on chronic systolic heart failure 09/27/1910/09/2018 Overview: - Known EF of 25% per careeverywhere - ICM with biventricular failure - New onset atrial flutter -> ?decompensating HF - Declined ICD in the past due to ?inappropraite triggering of ?lifevest (external ICD per patient) - TTE concerning for LV and RV thrombus Plan: - Optimized via [place] with the closing hemodynamics of RA= 8, PA= 47/20/35, CI= 2.1, CO= 4.6, MVO2= 47 - PT/OT - Will likely need an ICD -> needs education regarding it Cardiogenic shock 09/26/2018 10/09/2018 Overview: - initial [place] with RA: 12 mmHg, RV: 42/12 mmHg, PA: 48/28 mmHg, mean PAP: 40 mmmHg, Wedge: 32 mmHg - initial CO 3, CI 1.4, VBG with SvO2 43% Plan: - Optimized with NTP Acute liver failure without hepatic coma 019 10/09/2018 Overview: New onset elevation in AST/ALT with normal ALP Mildly elevated T. Bili LDH elevated with thrombocytopenia Etiology - cardiogenic ischemic hepatitis vs hypotensive vs thromboembolic Liver vascular US with patent liver vasculature Plan: - Trend LFT's - Correct INR - Work up for thrombocytopenia and hypercoagulable state documented as of this encounter (statuses as of 07/23/2022) [facility] History of Past illness Narrative* Problem Noted Date Resolved Date Acute deep vein thrombosis ( DVT) of popliteal vein of right lower extremity 09/30/2018 10/09/2018 Febrile 09/29/2018 10/09/2018 Overview: - febrile since 09/28/18 - infectious w/u negative thus far Plan: - f/u on blood cultures, u/a, respiratory cultures - continue vancomycin and zosyn Hypo-osmolality and hyponatremia 09/29/2018 10/09/2018 ATN (acute tubular necrosis) 09/26/201808/2018 Overview: - Presenting with creatinine of 2.53 - Baseline creatinine 1.09 as of 07-08-18 - No urine output while at OSH - Unclear etiology - likely cardio renal given worsening LFT's vs vasomotor nephropathy - improving Plan: - Monitor I and O strictly - Weight daily - standing weights if able - Trend creatinine - Avoid nephrotoxic agents - Renally dose medications Acute on chronic systolic heart failure 09/27/19 19 10/09/2018 Overview: - Known EF of 25% per careeverywhere - ICM with biventricular failure - New onset atrial flutter -> ?decompensating HF - Declined ICD in the past due to ?inappropraite triggering of ?lifevest (external ICD per patient) - TTE concerning for LV and RV thrombus Plan: - Optimized via [place] with the closing hemodynamics of RA= 8, PA= 47/20/35, CI= 2.1, CO= 4.6, MVO2= 47 - PT/OT - Will likely need an ICD -> needs education regarding it Cardiogenic shock 09/26/2018 10/09/2018 Overview: - initial [place] with RA: 12 mmHg, RV: 42/12 mmHg, PA: 48/28 mmHg, mean PAP: 40 mmmHg, Wedge: 32 mmHg - initial CO 3, CI 1.4, VBG with SvO2 43% Plan: - Optimized with NTP Acute liver failure without hepatic coma 019 10/09/2018 Overview: New onset elevation in AST/ALT with normal ALP Mildly elevated T. Bili LDH elevated with thrombocytopenia Etiology - cardiogenic ischemic hepatitis vs hypotensive vs thromboembolic Liver vascular US with patent liver vasculature Plan: - Trend LFT's - Correct INR - Work up for thrombocytopenia and hypercoagulable state documented as of this encounter (statuses as of 07/29/2022) [facility] History of Past illness Narrative* Problem Noted Date Resolved Date Acute deep vein thrombosis ( DVT) of popliteal vein of right lower extremity 09/30/2018 10/09/2018 Febrile 09/29/2018 10/09/2018 Overview: - febrile since 09/28/18 - infectious w/u negative thus far Plan: - f/u on blood cultures, u/a, respiratory cultures - continue vancomycin and zosyn Hypo-osmolality and hyponatremia 09/29/2018 10/09/2018 ATN (acute tubular necrosis) 09/26/201808/2018 Overview: - Presenting with creatinine of 2.53 - Baseline creatinine 1.09 as of 07-08-18 - No urine output while at OSH - Unclear etiology - likely cardio renal given worsening LFT's vs vasomotor nephropathy - improving Plan: - Monitor I and O strictly - Weight daily - standing weights if able - Trend creatinine - Avoid nephrotoxic agents - Renally dose medications Acute on chronic systolic heart failure 09/27/1910/09/2018 Overview: - Known EF of 25% per careeverywhere - ICM with biventricular failure - New onset atrial flutter -> ?decompensating HF - Declined ICD in the past due to ?inappropraite triggering of ?lifevest (external ICD per patient) - TTE concerning for LV and RV thrombus Plan: - Optimized via [place] with the closing hemodynamics of RA= 8, PA= 47/20/35, CI= 2.1, CO= 4.6, MVO2= 47 - PT/OT - Will likely need an ICD -> needs education regarding it Cardiogenic shock 09/26/2018 10/09/2018 Overview: - initial [place] with RA: 12 mmHg, RV: 42/12 mmHg, PA: 48/28 mmHg, mean PAP: 40 mmmHg, Wedge: 32 mmHg - initial CO 3, CI 1.4, VBG with SvO2 43% Plan: - Optimized with NTP Acute liver failure without hepatic coma 019 10/09/2018 Overview: New onset elevation in AST/ALT with normal ALP Mildly elevated T. Bili LDH elevated with thrombocytopenia Etiology - cardiogenic ischemic hepatitis vs hypotensive vs thromboembolic Liver vascular US with patent liver vasculature Plan: - Trend LFT's - Correct INR - Work up for thrombocytopenia and hypercoagulable state documented as of this encounter (statuses as of 08/02/2022) [facility] History of Past illness Narrative* Problem Noted Date Resolved Date Acute deep vein thrombosis ( DVT) of popliteal vein of right lower extremity 09/30/2018 10/09/2018 Febrile 09/29/2018 10/09/2018 Overview: - febrile since 09/28/18 - infectious w/u negative thus far Plan: - f/u on blood cultures, u/a, respiratory cultures - continue vancomycin and zosyn Hypo-osmolality and hyponatremia 09/29/2018 10/09/2018 ATN (acute tubular necrosis) 09/26/201808/2018 Overview: - Presenting with creatinine of 2.53 - Baseline creatinine 1.09 as of 07-08-18 - No urine output while at OSH - Unclear etiology - likely cardio renal given worsening LFT's vs vasomotor nephropathy - improving Plan: - Monitor I and O strictly - Weight daily - standing weights if able - Trend creatinine - Avoid nephrotoxic agents - Renally dose medications Acute on chronic systolic heart failure 09/27/19 19 10/09/2018 Overview: - Known EF of 25% per careeverywhere - ICM with biventricular failure - New onset atrial flutter -> ?decompensating HF - Declined ICD in the past due to ?inappropraite triggering of ?lifevest (external ICD per patient) - TTE concerning for LV and RV thrombus Plan: - Optimized via [place] with the closing hemodynamics of RA= 8, PA= 47/20/35, CI= 2.1, CO= 4.6, MVO2= 47 - PT/OT - Will likely need an ICD -> needs education regarding it Cardiogenic shock 09/26/2018 10/09/2018 Overview: - initial [place] with RA: 12 mmHg, RV: 42/12 mmHg, PA: 48/28 mmHg, mean PAP: 40 mmmHg, Wedge: 32 mmHg - initial CO 3, CI 1.4, VBG with SvO2 43% Plan: - Optimized with NTP Acute liver failure without hepatic coma 019 10/09/2018 Overview: New onset elevation in AST/ALT with normal ALP Mildly elevated T. Bili LDH elevated with thrombocytopenia Etiology - cardiogenic ischemic hepatitis vs hypotensive vs thromboembolic Liver vascular US with patent liver vasculature Plan: - Trend LFT's - Correct INR - Work up for thrombocytopenia and hypercoagulable state documented as of this encounter (statuses as of 09/04/2022) [facility] of Past illness Narrative* Problem Noted Date Resolved Date Acute deep vein thrombosis ( DVT) of popliteal vein of right lower extremity 09/30/2018 10/09/2018 Febrile 09/29/2018 10/09/2018 Overview: - febrile since 09/28/18 - infectious w/u negative thus far Plan: - f/u on blood cultures, u/a, respiratory cultures - continue vancomycin and zosyn Hypo-osmolality and hyponatremia 09/29/2018 10/09/2018 ATN (acute tubular necrosis) 09/26/201808/2018 Overview: - Presenting with creatinine of 2.53 - Baseline creatinine 1.09 as of 07-08-18 - No urine output while at OSH - Unclear etiology - likely cardio renal given worsening LFT's vs vasomotor nephropathy - improving Plan: - Monitor I and O strictly - Weight daily - standing weights if able - Trend creatinine - Avoid nephrotoxic agents - Renally dose medications Acute on chronic systolic heart failure 09/27/1910/09/2018 Overview: - Known EF of 25% per careeverywhere - ICM with biventricular failure - New onset atrial flutter -> ?decompensating HF - Declined ICD in the past due to ?inappropraite triggering of ?lifevest (external ICD per patient) - TTE concerning for LV and RV thrombus Plan: - Optimized via [place] with the closing hemodynamics of RA= 8, PA= 47/20/35, CI= 2.1, CO= 4.6, MVO2= 47 - PT/OT - Will likely need an ICD -> needs education regarding it Cardiogenic shock 09/26/2018 10/09/2018 Overview: - initial [place] with RA: 12 mmHg, RV: 42/12 mmHg, PA: 48/28 mmHg, mean PAP: 40 mmmHg, Wedge: 32 mmHg - initial CO 3, CI 1.4, VBG with SvO2 43% Plan: - Optimized with NTP Acute liver failure without hepatic coma 019 10/09/2018 Overview: New onset elevation in AST/ALT with normal ALP Mildly elevated T. Bili LDH elevated with thrombocytopenia Etiology - cardiogenic ischemic hepatitis vs hypotensive vs thromboembolic Liver vascular US with patent liver vasculature Plan: - Trend LFT's - Correct INR - Work up for thrombocytopenia and hypercoagulable state documented as of this encounter (statuses as of 09/05/2022) [facility] Past illness Narrative* Problem Noted Date Resolved Date Acute deep vein thrombosis ( DVT) of popliteal vein of right lower extremity 09/30/2018 10/09/2018 Febrile 09/29/2018 10/09/2018 Overview: - febrile since 09/28/18 - infectious w/u negative thus far Plan: - f/u on blood cultures, u/a, respiratory cultures - continue vancomycin and zosyn Hypo-osmolality and hyponatremia 09/29/2018 10/09/2018 ATN (acute tubular necrosis) 09/26/201808/2018 Overview: - Presenting with creatinine of 2.53 - Baseline creatinine 1.09 as of 07-08-18 - No urine output while at OSH - Unclear etiology - likely cardio renal given worsening LFT's vs vasomotor nephropathy - improving Plan: - Monitor I and O strictly - Weight daily - standing weights if able - Trend creatinine - Avoid nephrotoxic agents - Renally dose medications Acute on chronic systolic heart failure 09/27/19 19 10/09/2018 Overview: - Known EF of 25% per careeverywhere - ICM with biventricular failure - New onset atrial flutter -> ?decompensating HF - Declined ICD in the past due to ?inappropraite triggering of ?lifevest (external ICD per patient) - TTE concerning for LV and RV thrombus Plan: - Optimized via [place] with the closing hemodynamics of RA= 8, PA= 47/20/35, CI= 2.1, CO= 4.6, MVO2= 47 - PT/OT - Will likely need an ICD -> needs education regarding it Cardiogenic shock 09/26/2018 10/09/2018 Overview: - initial [place] with RA: 12 mmHg, RV: 42/12 mmHg, PA: 48/28 mmHg, mean PAP: 40 mmmHg, Wedge: 32 mmHg - initial CO 3, CI 1.4, VBG with SvO2 43% Plan: - Optimized with NTP Acute liver failure without hepatic coma 019 10/09/2018 Overview: New onset elevation in AST/ALT with normal ALP Mildly elevated T. Bili LDH elevated with thrombocytopenia Etiology - cardiogenic ischemic hepatitis vs hypotensive vs thromboembolic Liver vascular US with patent liver vasculature Plan: - Trend LFT's - Correct INR - Work up for thrombocytopenia and hypercoagulable state documented as of this encounter (statuses as of 09/26/2022) [facility] Evaluation + Plan note No data available for this section [facility] Evaluation note* Diagnosis Bipolar disorder, current episode manic without psychotic features, severe (HCC)- Primary Bipolar I disorder, most recent episode (or current) manic, severe, without mention of psychotic behavior [facility] Chronic systolic heart failure (HCC)- Primary Chronic systolic heart failure Peripheral vascular disease, unspecified (HCC) Peripheral vascular disease, unspecified Pure hypercholesterolemia ICD (implantable cardioverter-defibrillator) in place Automatic implantable cardiac defibrillator in situ Left ventricular thrombus Acute myocardial infarction, unspecified site, episode of care unspecified Cardiomyopathy, ischemic Other specified forms of chronic ischemic heart disease Coronary artery disease involving [place] coronary artery of [place] heart without angina pectoris Typical atrial flutter (HCC) Atrial flutter [facility] Diagnosis Peripheral vascular disease, unspecified (HCC)- Primary Peripheral vascular disease, unspecified Pure hypercholesterolemia [facility] Diagnosis Chronic systolic heart failure (HCC) Chronic systolic heart failure Pre-diabetes Other abnormal glucose [facility] Diagnosis Chronic systolic heart failure (HCC)- Primary Chronic systolic heart failure Peripheral vascular disease, unspecified (HCC) Peripheral vascular disease, unspecified Pure hypercholesterolemia Pre-diabetes Other abnormal glucose [facility] Diagnosis Coronary artery disease involving [place] coronary artery of [place] heart without angina pectoris- Primary Typical atrial flutter (HCC) Atrial flutter PVD (peripheral vascular disease) (HCC) Peripheral vascular disease, unspecified Peripheral vascular disease, unspecified (HCC) Peripheral vascular disease, unspecified Cardiomyopathy, ischemic Other specified forms of chronic ischemic heart disease Biventricular heart failure (HCC) Congestive heart failure, unspecified Cardiomyopathy in other diseases classified elsewhere [facility] Dyslipidemia- Primary Other and unspecified hyperlipidemia Statin intolerance Other drug allergy [facility] Diagnosis Coronary artery disease involving [place] coronary artery of [place] heart without angina pectoris- Primary Chronic systolic congestive heart failure (HCC) Chronic systolic heart failure [facility] Diagnosis Dementia without behavioral disturbance (HCC)- Primary Dementia, unspecified, without behavioral disturbance History of bipolar disorder Personal history of affective disorder Confabulation Memory loss [facility] Diagnosis Dementia without behavioral disturbance (HCC)- Primary Dementia, unspecified, without behavioral disturbance History of bipolar disorder Personal history of affective disorder Confabulation Memory loss [facility] Encounter for screening for malignant neoplasm of colon- Primary Special screening for malignant neoplasms, colon On continuous oral anticoagulation Long-term (current) use of anticoagulants ICD (implantable cardioverter-defibrillator) in place Automatic implantable cardiac defibrillator in situ documented in this encounter [facility] course [facility] Discharge instructions No data available for this section [facility] Progress note No data available for this section [facility] Reason for referral (narrative)* Outpatient Procedure (Routine) - Authorized Specialty Diagnoses / Procedures Referred By Contact Referred To Contact [facility] [place] Diagnoses Peripheral vascular disease, unspecified (HCC) Pure hypercholesterolemia Procedures ECG COMPLETE ECG ROUTINE ECG W/LEAST 12 LDS W/[place] [address] [place] [address] [place] [address] Referral ID Status Reason Start Date Expiration Date Visits Requested Visits Authorized [id number] Authorized Auto-Generat ed Referral 01/02/2022 01/02/2023 1 1 [facility] for referral (narrative)* Outpatient Procedure (Routine) - Authorized Specialty Diagnoses / Procedures Referred By Jamie moses Referred To Contact [facility] Diagnoses Coronary artery disease involving [place] tribe coronary artery of [place]illa tribe heart without angina pectoris Typical atrial flutter (HCC) PVD (peripheral vascular disease) (HCC) Procedures PVR [facility] NON-INVASIVE PHYSIOLOGIC STUDY EXTREMITY 3 [place] [address] [place] [address] [place] [address] Referral ID Status Reason Start Date Expiration Date Visits Requested Visits Authorized [id number] Authorized Auto-Generat ed Referral 04/16/2022 04/16/2023 1 1 [facility] for referral (narrative)* Outpatient Procedure (Routine) - Authorized Specialty Diagnoses / Procedures Referred By Jamie moses Referred To [facility] Diagnoses Dyslipidemia Statin intolerance Procedures ECG COMPLETE ECG ROUTINE ECG W/LEAST 12 LDS W/I&R Raghavendra Abdullahi MD [address] [place] [address] [address] Referral ID Status Reason Start Date Expiration Date Visits Requested Visits Authorized [id number] Authorized Auto-Generat ed Referral 04/18/2022 04/18/2023 1 1 [facility] for visit Narrative* Outpatient Procedure (Routine) - Closed Specialty Diagnoses / Procedures Referred By Contac t Referred To Contact [facility] Diagnoses Chronic systolic heart failure (HCC) Pre-diabetes Cardiomyopathy, ischemic Procedures ECHO ECHO TTHRC R-T 2D W/WOM-MODE COMPL SPEC&COLR D Marianela Weeks MD [facility] [place] [address] [place] [id number] Referral ID Status Reason Start Date Expiration Date V isits Requested Visits Authorized [id number] Closed Auto-Generate d Referral 06/05/2021 06/05/2022 1 1 [facility] Summary Purpose Family History No Family History Records FoundNo Family History Records FoundNo Family History Records FoundNo Family History Records FoundNo Family History Records FoundNo Family History Records FoundNo Family History Records FoundNo Family History Records Found Advance Directives Documents on File Type Date Recorded Patient Sharemilker Expl anation Advance Directive(s) 04/05/2019 9:07 AM Advance Directive(s) 03/15/2019 2:51 PM Advance Directive(s) 09/28/2018 3:46 PM Advance Directive(s) 09/28/2018 3:45 PM Advance Directive(s) 09/26/2018 5:43 AM Advance Directive(s) 09/26/2018 12:27 PM Documents on File Type Date Recorded Patient Sharemilker Expl anation Advance Directive(s) 09/28/2018 3:45 PM Documents on File Type Date Recorded Patient Sharemilker Expl anation Advance Directive(s) 09/28/2018 3:45 PM Hospital Course Note HNO ID: [id number] Author: Chantal arango (Res) MD Miguel Service: Critical Care Author Type: Resident Type: Discharge Summary Filed: 09/26/2018 3:55 AM Note Text: Attestation signed by Elysia Lopez at 09/26/2018 7:19 PM I have reviewed the note documented by the resident, and personally interviewed, examined and reviewed records/data/labs/radiographs. I personally participated in the ov[place] components and was involved in the discharge process Elysia Lopez MD DISCHARGE SUMMARY PATIENT NAME: Jimmy Mercado ADMISSION DATE: 09/25/2018 DISCHARGE DATE: 09/26/2018 ATTENDING PHYSICIAN: Elysia Lopez Code Status: Not on file Highest Readmission Risk Score: 8 The 30 day readmissions risk score is derived from an internally validated risk model which evaluates patient level characteristics, utilization history, medication orders and lab results up un (more content not included)... Reason for Referral Specialty Diagnoses / Procedures Referred By Jamie moses Referred To Contact Diagnoses ICD (implantable cardioverter-defibrillator) in place Procedures CONSULT TO ELECTROPHYSIOLOGY OFFICE/OUTPATIENT [facility] 60-74 MINUTES Marianela Weeks MD [address] [place] [address] Referral ID Status Reason Start Date Expiration Date Visits Requested Visits Authorized [id number] Pending Review PCP Requested Referral 01/02/2022 01/02/2023 1 1 Specialty Diagnoses / Procedures Referred By Jamie moses Referred To Contact MR IMAGING Diagnoses Dementia without behavioral disturbance (HCC) Procedures MRI BRAIN WO IVCON MRI BRAIN BRAIN STEM W/O CONTRAST MATERIAL Tyshawn Horn Jr., MD [address] [facility] [address] [place] [address] Mr Imaging Referral ID Status Reason Start Date Expiration Date Visits Requested Visits Authorized [id number] Authorized Auto-Generat ed Referral 07/22/2022 08/21/2023 1 1 Medications Administered Section Inactive Administered Medications - up to 3 most recent administrations Medication Order MAR Action Action Date Dose Rate Site perflutren lipid microspheres 1.3 mL in NaCl (PF) 0.9% 10 mL injection (DEFINITY) INTRAVENOUS, DIRECTED NEEDED, 1 dose, Starting on Fri06/05/21 at 1457, Until Fri01/02/22 at 1128, Per Protocol - for use during ECHO procedure only, If no IV access, insert saline lock prior to administering contrast. Discontinue saline lock post exam. If patient has central line or IVAD, may access for administration according to line specific nursing protocol. Once exam is complete, flush line and de-access per line specific nursing protocol.Dilute 1.3 ml of Definity with 8.7 ml of preservative-free saline. Given 01/02/2022 11:28 AM EDT 1.3 mL Additional Source Comments (unrecognized sect ion and content) No Status Records FoundNo Status Records FoundNo Status Records FoundNo Status Records FoundNo Status Records FoundNo Status Records FoundNo Status Records FoundNo Status Records Found INFORMATION SOURCE (unrecogn ized section and content) DATE CREATED AUTHOR AUTHOR'S ORGANIZ ATION 10/25/2020 [facility] DATE CREATED AUTHOR AUTHOR'S ORGANIZ ATION 01/28/2021 [employer] [facility] DATE CREATED AUTHOR AUTHOR'S ORGANIZ ATION 02/28/2021 [facility] DATE CREATED AUTHOR AUTHOR'S ORGANIZ ATION 05/26/2021 [facility] DATE CREATED AUTHOR AUTHOR'S ORGANIZ ATION 07/23/2021 [employer] [facility] [facility] DATE CREATED AUTHOR AUTHOR'S ORGANIZ ATION 08/07/2022 [facility] ([place]) DATE CREATED AUTHOR AUTHOR'S ORGANIZ ATION 09/13/2022 [facility] Goals (unrecognized section and content) No data available for this section Source Comments (unrecognize d section and content) In the event this informatio n is protected by the Federal Confidentiality of Alcohol and Drug Abuse Patient Records regulations: The Federal rules restrict any use of the information to criminally investigate or prosecute any alcohol or drug abuse patient.[facility] the event this information is protected by the Federal Confidentiality of Alcohol and Drug Abuse Patient Records regulations: The Federal rules restrict any use of the information to criminally investigate or prosecute any alcohol or drug abuse patient.[facility] Center[facility] the event this information is protected by the Federal Confidentiality of Alcohol and Drug Abuse Patient Records regulations: The Federal rules restrict any use of the information to criminally investigate or prosecute any alcohol or drug abuse patient.[facility] Center[facility] the event this information is protected by the Federal Confidentiality of Alcohol and Drug Abuse Patient Records regulations: The Federal rules restrict any use of the information to criminally investigate or prosecute any alcohol or drug abuse patient.[facility] Center[facility] the event this information is protected by the Federal Confidentiality of Alcohol and Drug Abuse Patient Records regulations: The Federal rules restrict any use of the information to criminally investigate or prosecute any alcohol or drug abuse patient.[facility] Center[facility] the event this information is protected by the Federal Confidentiality of Alcohol and Drug Abuse Patient Records regulations: The Federal rules restrict any use of the information to criminally investigate or prosecute any alcohol or drug abuse patient.[facility] Center[facility] the event this information is protected by the Federal Confidentiality of Alcohol and Drug Abuse Patient Records regulations: The Federal rules restrict any use of the information to criminally investigate or prosecute any alcohol or drug abuse patient.[facility] Center[facility] the event this information is protected by the Federal Confidentiality of Alcohol and Drug Abuse Patient Records regulations: The Federal rules restrict any use of the information to criminally investigate or prosecute any alcohol or drug abuse patient.[facility] Center[facility] the event this information is protected by the Federal Confidentiality of Alcohol and Drug Abuse Patient Records regulations: The Federal rules restrict any use of the information to criminally investigate or prosecute any alcohol or drug abuse patient.[facility] Center[facility] the event this information is protected by the Federal Confidentiality of Alcohol and Drug Abuse Patient Records regulations: The Federal rules restrict any use of the information to criminally investigate or prosecute any alcohol or drug abuse patient.[facility] Center[facility] the event this information is protected by the Federal Confidentiality of Alcohol and Drug Abuse Patient Records regulations: The Federal rules restrict any use of the information to criminally investigate or prosecute any alcohol or drug abuse patient.[facility] Center[facility] the event this information is protected by the Federal Confidentiality of Alcohol and Drug Abuse Patient Records regulations: The Federal rules restrict any use of the information to criminally investigate or prosecute any alcohol or drug abuse patient.[facility] CenterIn the event this information is protected by the Federal Confidentiality of Alcohol and Drug Abuse Patient Records regulations: The Federal rules restrict any use of the information to criminally investigate or prosecute any alcohol or drug abuse patient.[facility] CenterIn the event this information is protected by the Federal Confidentiality of Alcohol and Drug Abuse Patient Records regulations: The Federal rules restrict any use of the information to criminally investigate or prosecute any alcohol or drug abuse patient.[facility] CenterIn the event this information is protected by the Federal Confidentiality of Alcohol and Drug Abuse Patient Records regulations: The Federal rules restrict any use of the information to criminally investigate or prosecute any alcohol or drug abuse patient.[facility] Center[facility] the event this information is protected by the Federal Confidentiality of Alcohol and Drug Abuse Patient Records regulations: The Federal rules restrict any use of the information to criminally investigate or prosecute any alcohol or drug abuse patient.[facility] CenterIn the event this information is protected by the Federal Confidentiality of Alcohol and Drug Abuse Patient Records regulations: The Federal rules restrict any use of the information to criminally investigate or prosecute any alcohol or drug abuse patient.[facility] CenterIn the event this information is protected by the Federal Confidentiality of Alcohol and Drug Abuse Patient Records regulations: The Federal rules restrict any use of the information to criminally investigate or prosecute any alcohol or drug abuse patient.[facility] CenterIn the event this information is protected by the Federal Confidentiality of Alcohol and Drug Abuse Patient Records regulations: The Federal rules restrict any use of the information to criminally investigate or prosecute any alcohol or drug abuse patient.[facility] CenterIn the event this information is protected by the Federal Confidentiality of Alcohol and Drug Abuse Patient Records regulations: The Federal rules restrict any use of the information to criminally investigate or prosecute any alcohol or drug abuse patient.[facility] CenterIn the event this information is protected by the Federal Confidentiality of Alcohol and Drug Abuse Patient Records regulations: The Federal rules restrict any use of the information to criminally investigate or prosecute any alcohol or drug abuse patient.[facility] CenterIn the event this information is protected by the Federal Confidentiality of Alcohol and Drug Abuse Patient Records regulations: The Federal rules restrict any use of the information to criminally investigate or prosecute any alcohol or drug abuse patient.[facility] CenterIn the event this information is protected by the Federal Confidentiality of Alcohol and Drug Abuse Patient Records regulations: The Federal rules restrict any use of the information to criminally investigate or prosecute any alcohol or drug abuse patient.[facility] CenterIn the event this information is protected by the Federal Confidentiality of Alcohol and Drug Abuse Patient Records regulations: The Federal rules restrict any use of the information to criminally investigate or prosecute any alcohol or drug abuse patient.[facility] CenterIn the event this information is protected by the Federal Confidentiality of Alcohol and Drug Abuse Patient Records regulations: The Federal rules restrict any use of the information to criminally investigate or prosecute any alcohol or drug abuse patient.[facility] CenterIn the event this information is protected by the Federal Confidentiality of Alcohol and Drug Abuse Patient Records regulations: The Federal rules restrict any use of the information to criminally investigate or prosecute any alcohol or drug abuse patient.[facility] CenterIn the event this information is protected by the Federal Confidentiality of Alcohol and Drug Abuse Patient Records regulations: The Federal rules restrict any use of the information to criminally investigate or prosecute any alcohol or drug abuse patient.[facility] CenterIn the event this information is protected by the Federal Confidentiality of Alcohol and Drug Abuse Patient Records regulations: The Federal rules restrict any use of the information to criminally investigate or prosecute any alcohol or drug abuse patient.[facility] Care Teams (unrecognized sec tion and content) Examination Proctor Relationship Specialty Start Date End Date Patricia Burden [address] [facility] [address] [place], [place] [address] PCP - General Family Practice 09/26/18 [place] [address] Referring Cardiology 03/11/19 Marianela Weeks MD [address] [place], [place] 1539[address] Primary Staff Physician Cardiology 07/12/20 Examination Proctor Relationship Specialty Start Date End Date Patricia Burden [address] [facility] [address] [place] [address] PCP - General Family Practice 09/26/18 [place] [address] Referring Cardiology 03/11/19 Marianela Weeks MD [address] [place], [place] [address]12[address] Primary Staff Physician Cardiology 07/12/20 Examination Proctor Relationship Specialty Start Date End Date Patricia Burden [address] [facility] [address] [place] [address] PCP - General Family Practice 09/26/[address] [place] [address] Referring Cardiology 03/11/19 Marianela Weeks MD [address] [place] [address] Primary Staff Physician Cardiology 07/12/20 Examination Proctor Relationship Specialty Start Date End Date Patricia Burden [address] [facility] [address] [place] [address] PCP - General Family Medicine 09/26/[address] [facility] [place] [address] Referring Cardiology 03/11/19 Marianela Weeks MD [address] [place] [address] Primary Staff Physician Cardiology 07/12/20 Examination Proctor Relationship Specialty Start Date End Date Patricia Burden [address] [facility] [address] [place] [address] PCP - General Family Medicine 09/26/18 Juaquin Bates [address] [facility] [address] Referring Cardiology 03/11/19 Marianela Weeks MD [address] [place] [address] Primary Staff Physician Cardiology 07/12/20 Examination Proctor Relationship Specialty Start Date End Date Patricia Burden [address] [facility] [address] [place] [address] PCP - General Family Medicine 09/26/18 Juaquin Bates [address] [place] [address] Referring Cardiology 03/11/19 Marianela Weeks MD [address] [place] [address] Primary Staff Physician Cardiology 07/12/20 Examination Proctor Relationship Specialty Start Date End Date Patricia Burden [address] [facility] [address] [place] [address] PCP - General Family Medicine 09/26/18 Juaquin Bates [address] [place] [address] Referring Cardiology 03/11/19 Marianela Weeks MD [address] [place] [address] Primary Staff Physician Cardiology 07/12/20 Examination Proctor Relationship Specialty Start Date End Date Patricia Burden [address] [facility] [address] [place] [address] PCP - General Family Medicine 09/26/18 Juaquin Bates [address] [facility] [address] Referring Cardiology 03/11/19 Marianela Weeks MD [address] [place] [address] Primary Staff Physician Cardiology 07/12/20 Examination Proctor Relationship Specialty Start Date End Date Patricia Burden [address] [facility] [address] [place] [address] PCP - General Family Medicine 09/26/18 Juaquin Bates [address] [place] [address] Referring Cardiology 03/11/19 Marianela Weeks MD [address] [place] [address] Primary Staff Physician Cardiology 07/12/20 Examination Proctor Relationship Specialty Start Date End Date Patricia Burden [address] [facility] [address] [place] [address] PCP - General Family Medicine 09/26/18 Juaquin Bates [address] [facility] [place] [place] [address] Referring Cardiology 03/11/19 Marianela Weeks MD [address] [place] [address] Primary Staff Physician Cardiology 07/12/20 Examination Proctor Relationship Specialty Start Date End Date Patricia Burden [address] [facility] [address] [place] [address] PCP - General Family Medicine 09/26/18 Juaquin Bates [address] [facility] [place] [address] Referring Cardiology 03/11/19 Marianela Weeks MD [address] [place] [address] Primary Staff Physician Cardiology 07/12/20 Examination Proctor Relationship Specialty Start Date End Date Patricia Burden [address] [facility] [address] [place] [address] PCP - General Family Medicine 09/26/18 Juaquin Bates [address] [facility] [place] [address] Referring Cardiology 03/11/19 Marianela Weeks MD [address] [place] [address] Primary Staff Physician Cardiology 07/12/20 Examination Proctor Relationship Specialty Start Date End Date Patricia Burden [address] [facility] [address] [place] [address] PCP - General Family Medicine 09/26/18 Juaquin Bates [address] [facility] [place] [address] Referring Cardiology 03/11/19 Marianela Weeks MD [address] [place] [address] Primary Staff Physician Cardiology 07/12/20 Examination Proctor Relationship Specialty Start Date End Date Patricia Burden [address] [facility] [address] [place] [address] PCP - General Family Medicine 09/26/18 Juaquin Bates [address] [facility]iciansh[facility] [place] [address] Referring Cardiology 03/11/19 Marianela Weeks MD [address] [place] [address] Primary Staff Physician Cardiology 07/12/20 Examination Proctor Relationship Specialty Start Date End Date Patricia Burden [address] [facility] [address] [place] [address] PCP - General Family Medicine 09/26/18 Juaquin Bates [address] Avsaroj [facility] [place] [address] Referring Cardiology 03/11/19 Marianela Weeks MD [address] [place] [address] Primary Staff Physician Cardiology 07/12/20 Examination Proctor Relationship Specialty Start Date End Date Patricia Burden [address] [facility] [address] [place] [address] PCP - General Family Medicine 09/26/18 Juaquin Bates Faust[address]omar[address] Vanegassaroj [facility] [place] [address] Referring Cardiology 03/11/19 Marianela Weeks MD [address] [place] [address] Primary Staff Physician Cardiology 07/12/20 Examination Proctor Relationship Specialty Start Date End Date Patricia Burden [address] [facility] [address] [place] [address] PCP - General Family Medicine 09/26/18 Juaquin Bates [address] Avsaroj [facility] [place] [address] Referring Cardiology 03/11/19 Marianela Weeks MD [address] [place] [address] Primary Staff Physician Cardiology 07/12/20 Examination Proctor Relationship Specialty Start Date End Date Patricia Burden [address] [facility] [address] [place] [address] PCP - General Family Medicine 09/26/18 Juaquin Bates [address] [facility] [place] [address] Referring Cardiology 03/11/19 Marianela Weeks MD [address] [place] [address] Primary Staff Physician Cardiology 07/12/20 Examination Proctor Relationship Specialty Start Date End Date Patricia Burden [address] [facility] [address] [place] [address] PCP - General Family Medicine 09/26/18 Juaquin Bates [address] [facility]rah[facility] [place] [address] Referring Cardiology 03/11/19 Marianela Weeks MD [address] [place] [address] Primary Staff Physician Cardiology 07/12/20 Examination Proctor Relationship Specialty Start Date End Date Patricia Burden [address] [facility] [address] [place] [address] PCP - General Family Medicine 09/26/18 Juaquin Bates [address] [place] [address] Referring Cardiology 03/11/19 Marianela Weeks MD [address] [place] [address] Primary Staff Physician Cardiology 07/12/20 Reason for Visit (unrecogniz ed section and content) Reason Onset Date Comments christi 08/16/2021 Reason Comments Med Management Reason Comments Counseling Reason Comments Follow Up Reason Comments Follow Up Reason Comments Appointment Reason Comments Patient Question Reason Comments Patient Update Reason Comments New Patient Evaluation Reason Comments Orders Reason Comments MRI Authorization Reason Comments Consult Colonoscopy FOR RECORDS PERTAINING TO PATIENTS WHO ARE OR HAVE BEEN ENROLLED IN A CHEMICAL DEPENDENCY/SUBSTANCEABUSE PROGRAM, SOME INFORMATION MAY BE OMITTED. This clinical summary was aggregated from multiple sources. Caution should be exercised in using it in the provision of clinical care. This summary normalizes information from multiple sources, and as a consequence, information in this document may materially change the coding, format and clinical context of patient data. In addition, data may be omitted in some cases. CLINICAL DECISIONS SHOULD BE BASED ON THE PRIMARY CLINICAL RECORDS. [facility]. provides no warranty or guarantee of the accuracy or completeness of information in this document.
[2023-04-17 12:22] LABS: Absolute Lymphocyte Count 1.42 X10^3/uL (0.83-4.51); Absolute Neutrophil Count 5.7 X10^3/uL (2.0-7.7); Basophil# 0.05 X10^3/uL; Basophil% 0.6 % (0-1); Eosinophil# 0.11 X10^3/uL; Eosinophils% 1.4 % (0-5); Hematocrit 42.5 % (40-54); Hemoglobin 14.3 g/dL (13.0-16.5); Lymphocyte # 1.42 X10^3/ul (0.83-4.51); Lymphocyte % 17.6 % (19-41); Mean Corp Hgb Conc 33.6 g/dL (32-36); Mean Corpuscular Hgb 31.1 pg (27.0-32.0); Mean Corpuscular Volume 92.4 fL (80-94); Mean Platelet Vol. 10.3 fl (6.2-12.0); Monocyte# 0.75 X10^3/uL; Monocyte% 9.3 % (0-10); NRBC Flagged by Analyzer 0 % (0-5); Neutrophil # 5.72 X10^3/uL (2.7-7.7); Neutrophil % 70.9 % (47-70); Platelet Count 212 K/mm3 (150-450); RBC Distribution Width CV 12.6 % (11.6-14.6); RBC Distribution Width SD 42.7 fl (35.1-43.9); White Blood Count 8.1 K/mm3 (4.4-11.0)
[2023-04-17 13:13] LABS: Digoxin Level 1.06 ng/mL (0.80-2.00)
[2023-04-17 13:51] LABS: ALB/GLOB Ratio 1.1 RATIO (0.9-2.4); AST(SGOT) 20 U/L (15-37); Alanine Aminotransfer ALT/SGPT 24 U/L (16-61); Alkaline Phosphatase 38 U/L (45-117); Anion Gap 8 (5-15); BUN 20 mg/dL (7-18); BUN/Creat Ratio 23.5 RATIO (10-20); Calcium,Total 9.7 mg/dL (8.5-10.1); Chloride 106 mmol/L (98-107); Cholesterol 137 mg/dL (200); Creatinine, Serum 0.85 mg/dL (0.70-1.30); EST Glomerular Filtration Rate 94 mL/min (>60); Est Glom Filt Rate - Afr Amer 114 mL/min (>60); Globulin 3.5 g/dL (2.2-4.2); Glucose 88 mg/dL (74-106); High Density Lipoprotein 44 mg/dL; Magnesium 2.4 mg/dL (1.6-2.6); Potassium 4.2 mmol/L (3.5-5.1); Protein, Total 7.5 g/dL (6.4-8.2); Sodium Level 137 mmol/L (136-145); Thyroid Stim Hormone (TSH) 0.81 uIU/mL (0.358-3.74); Triglycerides 107 mg/dL; Very Low Density Lipoprotein 21 mg/dL (5-40)
[2023-04-17 14:04] LABS: Vitamin D,25 Hydroxy 48.8 ng/mL
[2023-04-17 14:26] LABS: Hemoglobin A1c 5.9 % (3.8-5.6)
== END | disposition home or self-care (01) ==
LOC: MTLAB 10:55
PROVIDERS: PCP Family Medicine; Referring Provider Family Medicine; Visit Provider Family Medicine
DX: E78.5 Hyperlipidemia, unspecified (principal); I48.92 Unspecified atrial flutter; E55.9 Vitamin D deficiency, unspecified; R73.02 Impaired glucose tolerance (oral)
CPT/HCPCS: 36415; 80053; 80061; 80162; 82306; 83036; 83735; 84443; 85025

== ENCOUNTER → 2023-09-11 | Outpatient (CLI) | payer MEDICARE, SELFPAY ==
[2023-09-11 12:18] LABS: Absolute Lymphocyte Count 1.73 X10^3/uL (0.83-4.51); Absolute Neutrophil Count 5.9 X10^3/uL (2.0-7.7); Basophil# 0.07 X10^3/uL; Basophil% 0.8 % (0-1); Eosinophil# 0.11 X10^3/uL; Eosinophils% 1.3 % (0-5); Hemoglobin 14.2 g/dL (13.0-16.5); Lymphocyte # 1.73 X10^3/ul (0.83-4.51); Lymphocyte % 19.9 % (19-41); Mean Corp Hgb Conc 33.8 g/dL (32-36); Mean Corpuscular Hgb 31.3 pg (27.0-32.0); Mean Corpuscular Volume 92.7 fL (80-94); Mean Platelet Vol. 10.3 fl (6.2-12.0); Monocyte% 10.4 % (0-10); NRBC Flagged by Analyzer 0 % (0-5); Neutrophil # 5.85 X10^3/uL (2.7-7.7); Neutrophil % 67.4 % (47-70); Platelet Count 244 K/mm3 (150-450); RBC Distribution Width CV 12.8 % (11.6-14.6); RBC Distribution Width SD 43.6 fl (35.1-43.9); Red Blood Count 4.53 M/mm3 (4.6-6.2); White Blood Count 8.7 K/mm3 (4.4-11.0)
[2023-09-11 12:52] LABS: Hemoglobin A1c 5.8 % (3.8-5.6)
[2023-09-11 13:01] LABS: Vitamin D,25 Hydroxy 40.7 ng/mL
[2023-09-11 13:32] LABS: ALB/GLOB Ratio 1.1 RATIO (0.9-2.4); AST(SGOT) 22 U/L (15-37); Alanine Aminotransfer ALT/SGPT 24 U/L (16-61); Albumin, Serum 3.9 g/dL (3.2-5.0); Alkaline Phosphatase 45 U/L (45-117); Anion Gap 6 (5-15); BUN 14 mg/dL (7-18); BUN/Creat Ratio 15.8 RATIO (10-20); Calcium,Total 9.6 mg/dL (8.5-10.1); Chloride 106 mmol/L (98-107); Cholesterol 115 mg/dL (200); Creatinine, Serum 0.88 mg/dL (0.70-1.30); EST Glomerular Filtration Rate 90 mL/min (>60); Est Glom Filt Rate - Afr Amer 109 mL/min (>60); Globulin 3.6 g/dL (2.2-4.2); Glucose 98 mg/dL (74-106); High Density Lipoprotein 43 mg/dL; Potassium 4.1 mmol/L (3.5-5.1); Protein, Total 7.5 g/dL (6.4-8.2); Sodium Level 136 mmol/L (136-145); Triglycerides 103 mg/dL; Very Low Density Lipoprotein 21 mg/dL (5-40)
== END | disposition home or self-care (01) ==
LOC: MFPLAB 11:22
PROVIDERS: PCP Family Medicine; Visit Provider Family Medicine
DX: E55.9 Vitamin D deficiency, unspecified (principal); I43 Cardiomyopathy in diseases classified elsewhere; R73.02 Impaired glucose tolerance (oral); E78.5 Hyperlipidemia, unspecified
CPT/HCPCS: 36415; 80053; 80061; 82306; 83036; 85025

== ENCOUNTER → 2024-01-21 | Outpatient (CLI) | payer MEDICARE, SELFPAY ==
--- NOTE | 2024-01-21 12:11 | STRESSREP ---
Stress Test Report Pharmacologic myocardial perfusion stress test. 73-year-old male with a history of coronary artery disease with elevated troponin Resting EKG demonstrates atrial fibrillation with a paced rhythm with a rate of 60 bpm. Resting blood pressure is 112/72 mmHg. 0.4 mg of regadenoson was infused per usual protocol followed by rapid intravenous saline flush injection. Continuous EKG monitoring was performed. The maximum heart rate was 71 bpm which was 40 of max impacted heart rate the maximum workload was 1 metabolic equivalent. At rest there were no ST or T wave changes noted to suggest ischemia and at peak infusion nonspecific ST changes were noted which did not meet the criteria for ischemia. No clinical angina is noted. The final blood pressure was 104/60 mmHg. Myocardial perfusion protocol. 11.3 mCi of technetium 99m sestamibi was injected at rest. 0.4 mg of regadenoson was infused per usual protocol. At peak infusion 36 mCi of technetium 99m sestamibi was injected stress images were obtained stress and rest images were reconstructed and compared in the short axis vertical long and horizontal long axis. Gated images were also obtained. Perfusion SPECT analysis: Review of the stress images demonstrate a dilated cardiac silhouette size with reduced perfusion noted in the anterior septal and inferoseptal braxton. The rest of the braxton appear to be normally perfused. The resting images demonstrate a similar pattern with no reversibility noted suggest ischemia. No previous obvious infarct is noted Gated SPECT analysis: The gated ejection fraction is 24%. Conclusion: Normal pharmacologic myocardial perfusion stress test. Reduced ejection fraction. Dilated cardiomyopathy
== END | disposition home or self-care (01) ==
LOC: CVS 07:18
PROVIDERS: PCP Internal Medicine; Referring Provider Nurse Practitioner Gerontology; Visit Provider Nurse Practitioner Gerontology
DX: R07.9 Chest pain, unspecified (principal); R06.02 Shortness of breath; R79.89 Other specified abnormal findings of blood chemistry
CPT/HCPCS: 78452; 93017; A9500; Q9957; A4216; J2785

== ENCOUNTER 2024-01-23 13:57 | Inpatient (IN) | payer MEDICARE, SELFPAY ==
[2024-01-23] VITALS (31 sets, daily range): BP systolic 79–122; BP diastolic 31–107; PULSE 72–116; RESP 13–27; TEMP 36.4–36.8; O2SAT 93–100; BMI 28.5; BMI 25.7
--- NOTE | 2024-01-23 14:50 | EKG12_ITS ---
Test Reason : general Blood Pressure : / mmHG Vent. Rate : 112 BPM Atrial Rate : 125 BPM P-R Int : 000 ms QRS Dur : 184 ms QT Int : 386 ms P-R-T Axes : 000 151 -21 degrees QTc Int : 526 ms Poor data quality, interpretation may be adversely affected Ventricular-paced rhythm Abnormal ECG Confirmed by Levi Duran ([id number]), newspaper photo editor CALOS CROW ([id number]) on 01/26/2024 11:54:36 AM Referred By: Confirmed By:Levi Duran
--- NOTE | 2024-01-23 14:53 | EX.ED.CRITCA ---
HPI History of Present Illness Chief Complaint: Shortness of Breath Detail of Chief Complaint: Patient is hypotensive, tachycardic and reportedly complained of shortness Informant: patient, family and SNF Onset/Context/Timing Onset: - (Uncertain) Context: - (Unable to determine) Timing: Continuous (Presumed) Quality: Patient was recently diagnosed with congestive heart failure, he presents b Location: Bilateral lower extremity lymphedema and pustular rash feet and distal left Current Severity: Severe Maximum Severity: Severe Worsened by: Possible overdiuresis along with infection Relieved by: Not applicable Associated Symptoms Associated Symptoms: other (Patient is only complaint is shortness of breath) Narrative Narrative: Patient is a 73-year-old male. [facility] presents from senior living. He was recent diagnosed with congestive heart failure. His sister is in the room who is a nurse. He was recently released from [facility]. He is diuretic was increased because of increasing lymphedema of his lower extremities. According to the sister his legs are singly more swollen they were a week ago. He attended a at that time. 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 He does have a implantable cardiac defibrillator and pacemaker. Patient is on reliable informant. He asked if I was to someone named Sol. He does not answer questions. He is cooperative but not oriented. This is not abnormal. 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 without angina pectoris Type 2 diabetes mellitus Home Medications ?Medication ?Instructions ?Recorded ?Last Taken ?Type aspirin 81 mg chewable tablet 81 mg PO DAILY heart 10/09/18 01/23/24 History bempedoic acid 180 mg tablet 180 mg PO QHS 08/28/20 01/20/24 History (Nexletol) nitroglycerin 0.4 mg sublingual 0.4 mg sublingual Q5-15M PRN Chest 07/25/21 Unknown History tablet Pain apixaban 5 mg tablet (Eliquis) 5 mg PO BID 08/16/21 01/23/24 History cholecalciferol (vitamin D3) 50 50 mcg PO DAILY 07/08/22 01/23/24 History mcg (2,000 unit) tablet omeprazole 20 mg capsule,delayed 20 mg PO DAILY 07/08/22 01/23/24 History release acetaminophen 500 mg tablet 500 mg PO TID 07/25/22 01/23/24 History digoxin 250 mcg (0.25 mg) tablet 0.25 mg PO DAILY 07/25/22 01/23/24 History ezetimibe 10 mg tablet 10 mg PO DAILY 07/25/22 01/23/24 History metoprolol succinate 25 mg 25 mg PO BID 07/25/22 01/23/24 History tablet,extended release 24 hr paliperidone palmitate 156 mg/mL 156 mg IM Q28D 07/25/22 01/09/24 History intramuscular syringe (Invega Sustenna) sacubitril 49 mg-valsartan 51 mg 0.5 tab PO BID 07/25/22 01/23/24 History tablet (Entresto) saw palmetto 450 mg capsule 450 mg PO BID 01/21/23 01/23/24 History dapagliflozin propanediol 10 mg 10 mg PO DAILY 07/22/23 01/23/24 History tablet (Farxiga) sertraline 25 mg tablet 25 mg PO QHS 07/22/23 01/20/24 History albuterol sulfate 90 mcg/actuation 2 puff inhalation Q4-6H PRN 12/30/23 01/23/24 History aerosol inhaler shortness of breath or wheezing furosemide 20 mg tablet (Lasix) 20 mg PO QAM 12/30/23 01/23/24 History loratadine 10 mg tablet (Claritin) 10 mg PO QDAY 12/30/23 01/23/24 History camphor-menthol 0.2 %-3.5 % 1 applic topical TID PRN pain 01/23/24 01/21/24 History topical gel (Arctic Relief) carboxymethylcellulose sodium 1 % 2 drp EACH EYE 4X/DAY PRN dry 01/23/24 01/23/24 History eye liquid gel drops (Refresh eye(s) Liquigel) guaifenesin 100 mg/5 mL oral 200 mg PO Q6H PRN cough 01/23/24 01/23/24 History liquid (Adult Tussin Chest Congestion) ipratropium 0.5 mg-albuterol 3 mg 3 ml inhalation 4X/DAY PRN 01/23/24 01/23/24 History (2.5 mg base)/3 mL nebulization shortness of breath soln naproxen sodium 220 mg capsule 220 mg PO BID PRN pain 01/23/24 01/23/24 History (Aleve) Allergy/AdvReac Type Severity Reaction Status Date / Time atorvastatin AdvReac Intermediate myalgias Verified 12/30/23 13:22 ezetimibe (From Zetia) AdvReac Intermediate mylagias Verified 12/30/23 13:22 rosuvastatin AdvReac Intermediate Myalgias Verified 12/30/23 13:22 Family History Father Diabetes Alzheimers disease CVA (cerebral vascular accident) Hypertension Mother Hypertension Sister Frontal lobe dementia Sister Hyperlipidemia Sister Thyroid disorder Surgical History History of cardioversion (09/27/18) Presence of implantable cardioverter-defibrillator (ICD) (~04/05/19) History of nasal septoplasty S/P insertion of iliac artery stent (~09/2006) History of coronary artery bypass surgery (~01/06/07) Presence of stent in coronary artery (~12/07/13) Social History Smoking Status: Former smoker alcohol intake: current substance use type: marijuana caffeine: No ROS ROS ED Review of Systems ROS Unobtainable: due to mental status EXAM Physical Exam Const Vital Signs: 01/23/24 13:59 01/23/24 14:06 01/23/24 14:09 Temperature 98.1 F 98.1 F Temperature Source Axillary Axillary Pulse Rate 113 H 110 H Respiratory Rate 18 18 Respiratory Effort Normal Respiratory Depth Normal Respiratory Pattern Normal Blood Pressure 89/68 L 90/66 Blood Pressure Mean 75 74 Pulse Ox 97 96 Oxygen Delivery Method Room Air Room Air Room Air 01/23/24 15:19 01/23/24 15:19 01/23/24 15:45 Temperature 98.1 F Temperature Source Axillary Pulse Rate 113 H 113 H Respiratory Rate 18 21 H Respiratory Effort Respiratory Depth Respiratory Pattern Blood Pressure 96/71 84/68 L Blood Pressure Mean 79 75 Pulse Ox 96 Oxygen Delivery Method Room Air Room Air 01/23/24 16:00 01/23/24 16:00 01/23/24 16:01 Temperature 98.0 F 98 F Temperature Source Axillary Axillary Pulse Rate 112 H 112 H 113 H Respiratory Rate 18 18 26 H Respiratory Effort Respiratory Depth Respiratory Pattern Blood Pressure 88/68 L 88/68 L 88/68 L Blood Pressure Mean 74 74 74 Pulse Ox 96 96 96 Oxygen Delivery Method Room Air Room Air 01/23/24 16:15 01/23/24 16:30 01/23/24 16:31 Temperature Temperature Source Pulse Rate 113 H 113 H 113 H Respiratory Rate 23 H 16 20 H Respiratory Effort Respiratory Depth Respiratory Pattern Blood Pressure 88/69 L 90/66 Blood Pressure Mean 76 75 Pulse Ox 100 99 99 Oxygen Delivery Method 01/23/24 16:45 01/23/24 17:00 01/23/24 17:00 Temperature 98.3 F Temperature Source Oral Pulse Rate 114 H 114 H Respiratory Rate 23 H 13 Respiratory Effort Respiratory Depth Respiratory Pattern Blood Pressure 88/73 L 94/72 94/73 Blood Pressure Mean 79 79 78 Pulse Ox 98 98 Oxygen Delivery Method Room Air 01/23/24 17:15 01/23/24 17:30 Temperature 98 F Temperature Source Oral Pulse Rate 113 H 114 H Respiratory Rate 20 H 25 H Respiratory Effort Respiratory Depth Respiratory Pattern Blood Pressure 98/74 87/52 L Blood Pressure Mean 82 63 Pulse Ox 97 Oxygen Delivery Method Positive well nourished and well developed Constitutional Narrative: Patient is hypotensive and tachycardic. He has poor perfusion with delayed cap refill of 3 to 4 seconds. Question of jaundice. General Appearance ED: well developed HEENT HEENT Narrative: Head is atraumatic normocephalic. Ears normal. Nares patent. Mucosa is slightly dry. Eyes PERRL Eyes Narrative: Question of scleral icterus. General Eye ED: Yes pale conjunctiva; Negative for scleral icterus Neck full ROM, no lymphadenopathy, supple and no JVD Chest Wall Chest Narrative: Chest wall appears normal. He does have scar where defibrillator and pacemaker are implanted. Resp Resp Narrative: Patient not tachypneic or hypoxic. Lungs reveal no wheeze, rales or rhonchi. Cardio regular rate, S1 normal heart sound, S2 normal heart sound and no murmurs Rate: tachycardic GI non-tender and no masses; Negative for non-distended GI Narrative: Abdomen is tympanitic. There is no umbilical or ventral hernia. Palpation: soft; Negative for tender Back/Spine no CVA tenderness Extremity Extremity Narrative: Patient has significant pitting edema of the right and left lower extremity. He has a pustular rash predominately left foot and distal left leg. He also has a rash with pustules right foot and near the right ankle on the medial side. These findings are concerning for cellulitis. This may be the source of his tachycardia and hypotension. He also may be over diuresed. Neuro No oriented x3, CN's II-XII intact bilaterally and no sensory deficits noted Sensorium / Orientation: alert Psych mental status grossly normal Psych Narrative: Pleasant calm cooperative gentleman. Skin General Skin Exam: jaundice Sepsis Attestation Sepsis Alert: Yes Sepsis Attestation: Agree w/Sepsis Date exam was performed: 01/23/24 Time exam was performed: 14:53 Possible Source of Sepsis: Skin/soft tissue Sepsis Organ Dysfunction Criteria Present: SBP < 90 mmHg or MAP < 65 mmHg Supportive Findings: I was informed at 1741 that patient's systolic is less than 90. In light of this we will start peripheral Levophed. If there is no response he will need a central line. Reluctant to place a central line at this time since he is on anticoagulant and is PT and PTT are elevated. Fluid Resuscitation Fluid resuscitation indicated?: Yes Fluid Resuscitation ordered: Lesser volume fluid bolus ordered (Patient has history of heart failure, he has significant lymphedema with serous drainage and 4 pillow orthopnea) Amount of fluid ordered: 500 Reason for lesser fluid bolus:: Concern for fluid overload and Heart failure MDM MDM MDM Narrative Medical decision making narrative: Patient is hypotensive with history coronary disease and possible overdiuresis pill pain EKG to evaluate for ischemia, appropriate blood work was obtained to assess for sepsis. Will add troponin as well. Clinically suspect patient's lymphedema is due to dependent edema and not CHF however with his recent diagnosis and the fact that he has 4 pillow orthopnea he only received a 500 cc bolus. Will administer additional boluses if he does not respond and will monitor for respiratory distress and hypoxia. Because source is skin he was started on Unasyn and vancomycin was added as well because of the pustular asked and concern for staph/MRSA infection. History & Record Review Discussion w/independent historian: Family Additional record(s) reviewed:: Prior outpatient record Lab Data Lab results narrative: White count is normal. Patient has mild anemia with normal indices. There is a slight shift but no bandemia. PT and PTT are elevated 22.3 and 37.4. Patient is on anticoagulant. Comprehensive metabolic panel is remarkable for a sodium of 129 and chloride 95. These are new abnormal findings. CO2 anion gap is normal. Glucose slightly elevated 124. AST and ALT are slightly elevated at 49 and 115 respectively. Albumin is decreased to 2.9. This may contribute to his lymphedema as well. Labs: Laboratory Results - last 24 hr 01/23/24 01/23/24 01/23/24 14:15 15:05 15:50 WBC 8.7 RBC 3.89 L Hgb 11.9 L Hct 35.2 L MCV 90.5 MCH 30.6 MCHC 33.8 RDW Std Deviation 45.4 H RDW Coeff of Nevaeh 13.9 Plt Count 108 L MPV 11.9 Immature Gran % (Auto) 0.300 Neut % (Auto) 80.0 H Lymph % (Auto) 8.9 L [place] % (Auto) 8.8 Eos % (Auto) 1.5 Baso % (Auto) 0.5 Absolute Neuts (auto) 7.0 Absolute Lymphs (auto) 0.78 L Nucleated RBC % 0 PT 22.3 H INR 2.0 APTT 37.4 H Sodium 129 L Potassium 4.4 Chloride 95 L Carbon Dioxide 27.0 Anion Gap 7 BUN 22 H Creatinine 1.13 Estim Creat Clear Calc 71.82 Est GFR (MDRD) Af Amer 82 Est GFR (MDRD) Non-Af 68 BUN/Creatinine Ratio 19.5 Glucose 124 H Lactic Acid 1.9 Calcium 9.3 Total Bilirubin 0.90 AST 49 H ALT 115 H Alkaline Phosphatase 94 Troponin I High Sens 27 Total Protein 6.2 L Albumin 2.9 L Globulin 3.3 Albumin/Globulin Ratio 0.9 Urine Color Yellow Urine Clarity Clear Urine pH 6.0 Ur Specific [place] 1.015 Urine Protein 15 H Urine Glucose (UA) 1000 H Urine Ketones Negative Urine Occult Blood Negative Urine Nitrite Negative Urine Bilirubin Negative Urine Urobilinogen 1 H Ur Leukocyte Esterase Negative Urine RBC 0-5 SEEN Urine WBC 0-5 SEEN Ur Squamous Epith Cells 0 SEEN Urine Bacteria RARE Urine Mucus 0 SEEN Radiography Chest X-Ray - ED: 1 View and Read by ED Physician (Suboptimal. This patient is slightly rotated. There is increased markings lower lobes probably atelectasis cannot rule out infiltrate.. There is blunting of the right costophrenic angle. Patient has a dual-chamber pacemaker/defibrillator noted. Osseous structures are unremarkable. Cardiac silh) Diagnostic Testing: Clinical Impression(s) from Imaging Studies Chest X-Ray 01/23/24 15:16 IMPRESSION: Atelectasis or infiltrate in both lung bases with probable small effusions. Electronically Signed: Christopher Quezada MD at 15:43 EDT , EKG Initial EKG: Attestation: I personally reviewed and interpreted this EKG as follows: Interpretation: Paced (Rate is 112. Rhythm is ventricularly paced. QRS duration 84 ms. QT duration 286 ms.) Treatment and Re-Evaluation Narrative: Patient remains hypotensive. Since there is no evidence of heart failure on the chest x-ray will order additional IV fluids. Nurse informing that he has not gotten his for 1.5 L of normal saline. She is concerned he is in failure. Patient was auscultated again. He has rales that were not noted initially. His systolic is above 90 and his mean arterial was above 65. Will give no additional fluids at this time. Dr. Lewis spoke with his sister. She wishes to talk with family regarding CODE STATUS. She understands that he may need a central line understands the complication if 1 is placed. At this point his pressure is responding to peripheral low-dose Levophed. Critical Care Time Critical Care Time: Yes Critical care time (excluding procedures): 30-74 minutes (33), Discussing w/Patient &/or Family/Loan Service Officer, Discussing w/Consultants and Arranging Admission or Transfer Discharge Plan Dx/Rx/DC Orders Clinical Impression: Septic shock, Type 2 diabetes mellitus, Ischemic cardiomyopathy, Atherosclerotic heart disease of [place] coronary artery without angina pectoris, Presence of implantable cardioverter-defibrillator (ICD), Peripheral vascular disease, Pustular rash, Cellulitis of both feet, Lymphedema of both lower extremities, Dementia Disposition Disposition: Acute Care [facility]
[2024-01-23 15:11] LABS: Absolute Lymphocyte Count 0.78 X10^3/uL (0.83-4.51); Basophil# 0.04 X10^3/uL; Basophil% 0.5 % (0-1); Eosinophil# 0.13 X10^3/uL; Eosinophils% 1.5 % (0-5); Hematocrit 35.2 % (40-54); Hemoglobin 11.9 g/dL (13.0-16.5); Lymphocyte # 0.78 X10^3/ul (0.83-4.51); Lymphocyte % 8.9 % (19-41); Mean Corp Hgb Conc 33.8 g/dL (32-36); Mean Corpuscular Hgb 30.6 pg (27.0-32.0); Mean Corpuscular Volume 90.5 fL (80-94); Mean Platelet Vol. 11.9 fl (6.2-12.0); Monocyte# 0.77 X10^3/uL; Monocyte% 8.8 % (0-10); NRBC Flagged by Analyzer 0 % (0-5); Neutrophil # 6.99 X10^3/uL (2.7-7.7); Platelet Count 108 K/mm3 (150-450); RBC Distribution Width CV 13.9 % (11.6-14.6); RBC Distribution Width SD 45.4 fl (35.1-43.9); Red Blood Count 3.89 M/mm3 (4.6-6.2); White Blood Count 8.7 K/mm3 (4.4-11.0)
[2024-01-23] MEDS: 0.9% Normal Saline (500mL Bag) 500 ML 999 ML IV (15:15)
[2024-01-23] MEDS: Ampicillin/Sulbactam 3 GM in 0.9% Normal Saline (100mL MB+) 100 ML IV (15:16)
--- NOTE | 2024-01-23 15:16 | RAD_ITS ---
STUDY: X-RAY CHEST REASON FOR EXAM: Male, 73 years old. Shortness of breath TECHNIQUE: Single AP portable view of the chest. COMPARISON: 06/24/2020. FINDINGS: Elevated right hemidiaphragm. Ill-defined pulmonary opacities of the mid and lower lung biggs bilaterally consistent with atelectasis or infiltrate. Probable small bilateral pleural effusions. Normal size heart. Previous CABG. Pacemaker is seen with leads terminating in the right atrium and right ventricle. Normal mediastinum and kathleen. Normal visualized pulmonary arteries. Normal visualized aortic arch and descending thoracic aorta. Normal visualized thoracic spine. Normal visualized ribs, clavicles, and shoulders. There is no demonstrated abnormality of the visualized soft tissue structures of the upper abdomen. RAD/Chest 1 View (Portable) IMPRESSION: Atelectasis or infiltrate in both lung bases with probable small effusions. Electronically Signed: Christopher Quezada MD at 15:43 EDT ,
[2024-01-23 15:19] LABS: Prothrombin Time (Protime)PT. 22.3 SECONDS (11.7-14.9)
[2024-01-23 15:20] LABS: Partial Thromboplast Time 37.4 Seconds (24.1-36.2)
[2024-01-23 15:29] LABS: ALB/GLOB Ratio 0.9 RATIO (0.9-2.4); AST(SGOT) 49 U/L (15-37); Alanine Aminotransfer ALT/SGPT 115 U/L (16-61); Albumin, Serum 2.9 g/dL (3.2-5.0); Alkaline Phosphatase 94 U/L (45-117); Anion Gap 7 (5-15); BUN 22 mg/dL (7-18); BUN/Creat Ratio 19.5 RATIO (10-20); Calcium,Total 9.3 mg/dL (8.5-10.1); Chloride 95 mmol/L (98-107); Creatinine, Serum 1.13 mg/dL (0.70-1.30); EST Glomerular Filtration Rate 68 mL/min (>60); Est Glom Filt Rate - Afr Amer 82 mL/min (>60); Estimated Creatinine Clearance 71.82 ml/min; Globulin 3.3 g/dL (2.2-4.2); Glucose 124 mg/dL (74-106); Potassium 4.4 mmol/L (3.5-5.1); Protein, Total 6.2 g/dL (6.4-8.2); Sodium Level 129 mmol/L (136-145)
[2024-01-23 15:53] LABS: Troponin-I HS 27 pg/mL (3.0-78.0)
[2024-01-23 16:03] LABS: Lactic Acid 1.9 mmol/L (0.4-1.9)
[2024-01-23 16:05] LABS: Mucous, Urine 0 SEEN /hpf (<or=2+); Squamous Epithelial Cells - UA 0 SEEN /hpf (0-5)
[2024-01-23 16:09] LABS: Color, Urine Yellow (Yellow); Glucose, Dipstick 1000 mg/dl (Normal); Ketone-Dipstick Negative (Negative); Leukocyte Esterase-Dipstick Negative /ul (Negative); Nitrite-Dipstick Negative (Negative); Occult Blood-Urine Negative /ul (Negative); Protein-Dipstick 15 mg/dl (Negative); Specific Gravity, Urine 1.015 (1.002-1.030); Urine Bilirubin Dipstick Negative (Negative); Urine Clarity Clear (Clear); Urine Urobilinogen 1 mg/dl (Normal)
[2024-01-23 16:18] LABS: Bacteria RARE /hpf (None Seen); Red Blood Cells-Urine 0-5 SEEN /hpf (0-5); White Blood Cells 0-5 SEEN /hpf (0-5)
[2024-01-23] MEDS: Vancomycin HCl 2,000 MG in 0.9% Normal Saline (500mL Bag) 500 ML 250 MG IV (17:13)
[2024-01-23] MEDS: 0.9% Normal Saline (1000mL) 1,000 ML 1000 ML IV (17:13)
--- NOTE | 2024-01-23 18:12 | PCM.HP.STD ---
HPI - General General Date of Admission: 01/23/24 Date of Service: 01/23/24 Chief Complaint: shortness of breath, fluid overload. Bilateral leg seepage HPI Narrative THAD NAIDU, is a 73 M who was [facility] from [facility] for being hypotensive, tachycardic and increased shortness of breath. As per [facility], patient has very short of breath and Lasix was given and further dropped her blood pressure. In ED, blood pressure was 89/68, heart rate 113/min. Pulse ox 97% on room air. Afebrile. Patient also has bilateral lower extremity seepage of fluid which is chronic. Patient has advanced dementia therefore could not tell about chest pain or fever. Patient was chewing nicotine gum as he still smokes cigar. History mainly taken from the medical record and [facility] data. 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 Type 2 diabetes mellitus Home Medications ?Medication ?Instructions ?Recorded ?Last Taken ?Type aspirin 81 mg chewable tablet 81 mg PO DAILY heart 10/09/18 01/23/24 History bempedoic acid 180 mg tablet 180 mg PO QHS 08/28/20 01/20/24 History (Nexletol) nitroglycerin 0.4 mg sublingual 0.4 mg sublingual Q5-15M PRN Chest 07/25/21 Unknown History tablet Pain apixaban 5 mg tablet (Eliquis) 5 mg PO BID 08/16/21 01/23/24 History cholecalciferol (vitamin D3) 50 50 mcg PO DAILY 07/08/22 01/23/24 History mcg (2,000 unit) tablet omeprazole 20 mg capsule,delayed 20 mg PO DAILY 07/08/22 01/23/24 History release acetaminophen 500 mg tablet 500 mg PO TID 07/25/22 01/23/24 History digoxin 250 mcg (0.25 mg) tablet 0.25 mg PO DAILY 07/25/22 01/23/24 History ezetimibe 10 mg tablet 10 mg PO DAILY 07/25/22 01/23/24 History metoprolol succinate 25 mg 25 mg PO BID 07/25/22 01/23/24 History tablet,extended release 24 hr paliperidone palmitate 156 mg/mL 156 mg IM Q28D 07/25/22 01/09/24 History intramuscular syringe (Invega Sustenna) sacubitril 49 mg-valsartan 51 mg 0.5 tab PO BID 07/25/22 01/23/24 History tablet (Entresto) saw palmetto 450 mg capsule 450 mg PO BID 01/21/23 01/23/24 History dapagliflozin propanediol 10 mg 10 mg PO DAILY 07/22/23 01/23/24 History tablet (Farxiga) sertraline 25 mg tablet 25 mg PO QHS 07/22/23 01/20/24 History albuterol sulfate 90 mcg/actuation 2 puff inhalation Q4-6H PRN 12/30/23 01/23/24 History aerosol inhaler shortness of breath or wheezing furosemide 20 mg tablet (Lasix) 20 mg PO QAM 12/30/23 01/23/24 History loratadine 10 mg tablet (Claritin) 10 mg PO QDAY 12/30/23 01/23/24 History camphor-menthol 0.2 %-3.5 % 1 applic topical TID PRN pain 01/23/24 01/21/24 History topical gel (Arctic Relief) carboxymethylcellulose sodium 1 % 2 drp EACH EYE 4X/DAY PRN dry 01/23/24 01/23/24 History eye liquid gel drops (Refresh eye(s) Liquigel) guaifenesin 100 mg/5 mL oral 200 mg PO Q6H PRN cough 01/23/24 01/23/24 History liquid (Adult Tussin Chest Congestion) ipratropium 0.5 mg-albuterol 3 mg 3 ml inhalation 4X/DAY PRN 01/23/24 01/23/24 History (2.5 mg base)/3 mL nebulization shortness of breath soln naproxen sodium 220 mg capsule 220 mg PO BID PRN pain 01/23/24 01/23/24 History (Aleve) Allergy/AdvReac Type Severity Reaction Status Date / Time atorvastatin AdvReac Intermediate myalgias Verified 12/30/23 13:22 ezetimibe (From Zetia) AdvReac Intermediate mylagias Verified 12/30/23 13:22 rosuvastatin AdvReac Intermediate Myalgias Verified 12/30/23 13:22 Family History Father Diabetes Alzheimers disease CVA (cerebral vascular accident) Hypertension Mother Hypertension Sister Frontal lobe dementia Sister Hyperlipidemia Sister Thyroid disorder Surgical History History of cardioversion (09/27/18) Presence of implantable cardioverter-defibrillator (ICD) (~04/05/19) History of nasal septoplasty S/P insertion of iliac artery stent (~09/2006) History of coronary artery bypass surgery (~01/06/07) Presence of stent in coronary artery (~12/07/13) Social History Smoking Status: Former smoker alcohol intake: current substance use type: marijuana caffeine: No ROS ROS Narrative 14 system ROS is unobtainable Dementia Review of Systems ROS Unobtainable: due to mental condition and due to mental status Vital Signs Vital Signs Vital Signs: 01/23/24 13:59 01/23/24 14:06 01/23/24 14:09 Temperature 98.1 F 98.1 F Temperature Source Axillary Axillary Pulse Rate 113 H 110 H Respiratory Rate 18 18 Respiratory Effort Normal Respiratory Depth Normal Respiratory Pattern Normal Blood Pressure 89/68 L 90/66 Blood Pressure Mean 75 74 Pulse Ox 97 96 Oxygen Delivery Method Room Air Room Air Room Air 01/23/24 15:19 01/23/24 15:19 01/23/24 15:45 Temperature 98.1 F Temperature Source Axillary Pulse Rate 113 H 113 H Respiratory Rate 18 21 H Respiratory Effort Respiratory Depth Respiratory Pattern Blood Pressure 96/71 84/68 L Blood Pressure Mean 79 75 Pulse Ox 96 Oxygen Delivery Method Room Air Room Air 01/23/24 16:00 01/23/24 16:00 01/23/24 16:01 Temperature 98.0 F 98 F Temperature Source Axillary Axillary Pulse Rate 112 H 112 H 113 H Respiratory Rate 18 18 26 H Respiratory Effort Respiratory Depth Respiratory Pattern Blood Pressure 88/68 L 88/68 L 88/68 L Blood Pressure Mean 74 74 74 Pulse Ox 96 96 96 Oxygen Delivery Method Room Air Room Air 01/23/24 16:15 01/23/24 16:30 01/23/24 16:31 Temperature Temperature Source Pulse Rate 113 H 113 H 113 H Respiratory Rate 23 H 16 20 H Respiratory Effort Respiratory Depth Respiratory Pattern Blood Pressure 88/69 L 90/66 Blood Pressure Mean 76 75 Pulse Ox 100 99 99 Oxygen Delivery Method 01/23/24 16:45 01/23/24 17:00 01/23/24 17:00 Temperature 98.3 F Temperature Source Oral Pulse Rate 114 H 114 H Respiratory Rate 23 H 13 Respiratory Effort Respiratory Depth Respiratory Pattern Blood Pressure 88/73 L 94/72 94/73 Blood Pressure Mean 79 79 78 Pulse Ox 98 98 Oxygen Delivery Method Room Air 01/23/24 17:15 01/23/24 17:30 Temperature 98 F Temperature Source Oral Pulse Rate 113 H 114 H Respiratory Rate 20 H 25 H Respiratory Effort Respiratory Depth Respiratory Pattern Blood Pressure 98/74 87/52 L Blood Pressure Mean 82 63 Pulse Ox 97 Oxygen Delivery Method Weight Weight: 210 lb 1.608 oz Body Mass Index (BMI) 28.5 Physical Exam Narrative General: Awake, advanced dementia. Orientation cannot be ascertained. Does not look confused. On baseline mental status HEENT: Atraumatic, PERRLA, EOMI, Normocephalic Oral: Oral mucosa dry no Gingival or Mucosal Lesions/ Ulcerations Neck: Supple, No JVD, Negative Carotid Bruits Chest wall/Lungs: Air entry diminished in bilateral lung bases. Bilateral fine crepitations Cardiovascular: Paced rhythm, Normal S1, Normal S2, No M/G/R Abdomen: Bowel Sounds Present, Soft, Non Tender, Non-Distended : No dysuria. No renal angle tenderness. No suprapubic tenderness. Extremities: Bilateral thigh-high pitting edema. Scrotal and penile edema. Capillary Refill Less than 3 Seconds Skin: Fluid seepage from both legs below knee. Small reddish spot, seems telangiectasia/petechial rash. Musculoskeletal: No Tenderness to Palpation of Joints or Extremities Neurological: Detailed neuroexam could not be obtained. DTR 2+/4. No acute focal neurological deficit. Psych/Mental Status: Flat affect. Results Lab / Micro Data 01/23/24 14:15 01/23/24 14:15 Labs: Laboratory Results - last 24 hr 01/23/24 14:15: WBC 8.7, RBC 3.89 L, Hgb 11.9 L, Hct 35.2 L, MCV 90.5, MCH 30.6, MCHC 33.8, RDW Std Deviation 45.4 H, RDW Coeff of Nevaeh 13.9, Plt Count 108 L, MPV 11.9, Immature Gran % (Auto) 0.300, Neut % (Auto) 80.0 H, Lymph % (Auto) 8.9 L, [place] % (Auto) 8.8, Eos % (Auto) 1.5, Baso % (Auto) 0.5, Absolute Neuts (auto) 7.0, Absolute Lymphs (auto) 0.78 L, Nucleated RBC % 0, PT 22.3 H, INR 2.0, APTT 37.4 H, Sodium 129 L, Potassium 4.4, Chloride 95 L, Carbon Dioxide 27.0, Anion Gap 7, BUN 22 H, Creatinine 1.13, Estim Creat Clear Calc 71.82, Est GFR (MDRD) Af Amer 82, Est GFR (MDRD) Non-Af 68, BUN/Creatinine Ratio 19.5, Glucose 124 H, Calcium 9.3, Total Bilirubin 0.90, AST 49 H, ALT 115 H, Alkaline Phosphatase 94, Troponin I High Sens 27, Total Protein 6.2 L, Albumin 2.9 L, Globulin 3.3, Albumin/Globulin Ratio 0.9 01/23/24 15:05: Lactic Acid 1.9 01/23/24 15:50: Urine Color Yellow, Urine Clarity Clear, Urine pH 6.0, Ur Specific [place] 1.015, Urine Protein 15 H, Urine Glucose (UA) 1000 H, Urine Ketones Negative, Urine Occult Blood Negative, Urine Nitrite Negative, Urine Bilirubin Negative, Urine Urobilinogen 1 H, Ur Leukocyte Esterase Negative, Urine RBC 0-5 SEEN, Urine WBC 0-5 SEEN, Ur Squamous Epith Cells 0 SEEN, Urine Bacteria RARE, Urine Mucus 0 SEEN Imaging Radiology Impression Chest X-Ray 01/23/24 15:16 IMPRESSION: Atelectasis or infiltrate in both lung bases with probable small effusions. Electronically Signed: Christopher Quezada MD at 15:43 EDT , Assessment & Plan Assessment/Plan (1) Lymphedema of both lower extremities: (2) Hypotension: PLAN: Plan This 72-year-old gentleman with advanced dementia is admitted for worsening shortness of breath hypotension following Lasix given in the nursing. 1. Hypotension from Lasix probably distributive shock/cardiogenic shock from CHF exacerbation: Patient is being admitted in ICU on Levophed drip through peripheral line. Patient is on apixaban for history of atrial flutter and INR is 2.0 therefore hesitant to put central line in the neck. Patient also currently needs low-dose Levophed as low as systolic blood pressure was in upper 80s. Furthermore I talked to the patient's next of kin, her daughter Bib and she agreeable with the plan for not putting central line. 2. Acute on chronic combined systolic and asked CHF exacerbation, CHF class III, ischemic cardiomyopathy status post AICD: Last echo in December 2021 reported LV mildly dilated, moderately decreased systolic function EF 30%. Grade 1 diastolic dysfunction. RV systolic function and size normal. Left atrial cavity moderately dilated. Patient on digoxin with digoxin 500 mg IV 1 dose now. Continue baseline digoxin 2050 mcg daily from tomorrow. Digoxin level tomorrow AM. Hold metoprolol succinate, Entresto, and diuretic as patient is on Levophed drip. Monitor electrolytes and kidney function. Serum magnesium ordered. Cardiac enzymes ordered. 2D echo tomorrow a.m. 3. CAD status post 5 vessel CABG and stents: Baby aspirin continued. Rest as mentioned above. 4. Chronic atrial flutter/atrial flutter,, peripheral vascular disease on apixaban: Hold apixaban. Rest as mentioned above 5. Hyperlipidemia: On Zetia continue patient on atorvastatin/Lipitor in the past but does not see on the home medication. Fasting profile tomorrow a.m. 6. DVT prophylaxis: Hold Eliquis for plan of PICC line tomorrow a.m. Bilateral SCDs Living will/advanced directive/end of life care: Patient does not have living will or advanced directive. 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 I talked to patient's next to kin her daughter Marah. She told me that she will talk to other family members and make decision on CODE STATUS. I also talked about risk of bleeding with central line on IJ or femoral as patient is on Eliquis and INR 2.0 continues agreeable plan to hold for now and may be PICC line tomorrow morning. After discussion of benefits/risks procedures involved with full code, DNR CC arrest and DNR CC, her daughter agreeable for full code for now, unverified and will update PRADEEP after talking to other family members Total time spent in [id number] encounter in discussion of advanced directive 17 minutes. Charges/Coding Visit Charges Inpatient E&M: 85347 Init Hosp L3 Procedures Hospitalists Procedures: 87470 Advncd Care Plan 30 Min
[2024-01-23] MEDS: Norepinephrine 8 MG in 0.9% Normal Saline (250mL Bag) 242 ML 9.4 MG CONT INF (18:15)
--- OUTSIDE RECORDS SUMMARY | 2024-01-23 18:52 | XMS RPT_ITS | CCD ---
Author Organization [facility] Care Team Providers Care Manager File Name Role Phone PROVIDER, UNKNOWN Attending Unavailable PROVIDER, UNKNOWN Admitting Unavailable PATIENT, SELF Referring Unavailable NATALIE, DR TYSHAWN Mayfield Attending Unavaildavid ESTRADA, DR TYSHAWN Mayfield Primary Care Unavaildavid ESTRADA, DR TYSHAWN Mayfield Admitting UnavailPatricia Palomo Primary Care Provider Juaquin Bates Unavailable Jayashree LANDRUM, Marianela Unavailable [phone] Patricia Caputo Primary Care Provider [phone] Juaquin Bates Unavailable Marianela Blanc MD Unavailable [phone] Patricia Caputo Primary Care Provider Juaquin Bates Unavailable Marianela Blanc MD Unavailable JENISE LANDRUM, PATRICIA Primary [facility] Phys[facility] [phone] LIYA LANDRUM, DR JIMENEZ Attending Unavailable JENISE LANDRUM PATRICIA Primary Care Unavailable TYSHAWN HORN JR Referring Unavailable PATRICIA CAUPTO [facility] UnavailJOHNNA Schrader Attending Unavailable PATRICIA CAPUTO [facility] Unavailjalen CAPUTO [facility] UnavailMARIANELA Jenkins Referring Unavailable JENISE [facility] UnavailMARIANELA Jenkins Referring Unavailable JENISE [facility] UnavailMARIANELA Jenkins Attending Unavailable MARIANELA BLANC Referring Unavailable JENISE [facility] UnavailMARIANELA Jenkins Referring Unavailable [facility] Referring Unavailable [facility] Jenkins Referring Unavailable [facility] Jenkins Attending Unavailable MARIANELA BLANC Referring Unavailable [facility] [place] JR Attending Unavailable JENISE [facility] Pete DO Attending [facility] Allergies Allergy Classification Reported Allergen(s) Allergy Type Date of Onset Reaction(s) Facility NEGATED: Highlighted row has been ruled out! (1 source) natural latex rubber; Translations: [LATEX, NATURAL RUBBER] Drug allergy (disorder) [place] NEGATED: Highlighted row has been ruled out! (1 source) No IV Contrast Allergy.; Translations: [IV Dye, Iodine Containing] Drug allergy (disorder) [place] Medications Current Medications Medication Drug Class(es) Dates [...] NaCl (PF) 0.9% 10 mL injection (DEFINITY) Start: 03-02-2021 End: 06-01-2022 perflutren lipid microsphere s 1.3 mL in NaCl (PF) 0.9% 10 mL injection (DEFINITY) zolpidem tartrate 10 mg oral tablet (1 source) gamma-Aminobutyric Acid-ergic Agonist Start: 08-06-2010 take 1 tablet by mouth once daily at bedtime as needed for sleep Ambien 10 mg, Oral, qHS, PRN as needed for sleep, tab(s), 0 Refill(s) Start Date: 08/06/10 Status: Ordered Completed/Discontinued Medications Medication Drug Class(es) Dates Sig (Normalized) Sig (Original) acetaminophen 325 mg oral tablet (20 sources) Start: 1 take 2 tablets by mouth every six hours as needed acetaminophen (TYLENOL) 325 mg tablet Take 2 tablets by mouth every 6 hours as needed for pain. 0 10/24/2020 Active Comment on above: Take 2 tablets by mo [facility] every 6 hours as needed for pain. aluminum hydroxide 40 mg/ml / magnesium hydroxide 40 mg/ml / simethicone 4 mg/ml oral suspension (8 sources) Start: 1 End: 2 take 30 mL by mouth every four hours as needed aluminum-magnesium hydroxide-simethicone (MAALOX,MYLANTA,MAG-AL PLUS) 200-200-20 mg/5 mL suspension Take 30 mL by mouth every 4 hours as needed. 0 10/24/2020 01/02/2022 Discontinued (Course of therapy completed) Comment on above: Take 30 mL by mouth every 4 hours as needed. apixaban 5 mg oral tablet (20 sources) Factor Xa Inhibitor Start: 2 take 1 tablet by mouth twice daily apixaban (ELIQUIS) 5 mg tab(s) Take 1 tablet by mouth twice daily. 180 tablet 3 06/20/2022 Active Comment on above: Take 1 tablet by kole th twice daily. aspirin 81 mg oral tablet (20 sources) Platelet Aggregation Inhibitor, Nonsteroidal Anti-inflammatory Drug Start: 7 take 1 tablet by mouth once daily Aspirin 81 mg ORAL Tab Take one(1) tablet daily. 0 11/20/2006 Active Comment on above: Take one(1) tablet d aily. bempedoic acid 180 mg oral tablet (20 sources) Start: 1 End: 2 take 1 tablet by mouth once daily at bedtime bempedoic acid (NEXLETOL) 180 mg tablet Indications: Peripheral vascular disease, unspecified (HCC) , Pure hypercholesterolemia , Chronic systolic heart failure (HCC) Take 1 tablet (180 mg) by mouth daily at bedtime. 90 tablet 3 01/02/2022 Active Comment on above: Take 1 tablet (180 m g) by mouth daily at bedtime. cholecalciferol 0.125 mg oral tablet (20 sources) Vitamin D Start: 9 cholecalciferol (VITAMIN D3) 5,000 unit tab Take 2,000 Units by mouth once daily. 0 10/27/2018 Active Comment on above: Take 2,000 Units by mouth once daily. clonazePAM 0.5 mg oral tablet (6 sources) Benzodiazepine Start: 1 End: 2 take 3 tablets by mouth once daily at bedtime clonazePAM (KLONOPIN) 0.5 mg tablet Take 3 tablets by mouth daily at bedtime for 30 days. 0 10/24/2020 01/02/2022 Discontinued (Course of therapy completed) Comment on above: Take 3 tablets by mo uth daily at bedtime for 30 days. dapagliflozin 10 mg oral tablet (20 sources) Sodium-Glucose Cotransporter 2 Inhibitor Start: 2 take 1 tablet by mouth once daily at breakfast dapagliflozin (FARXIGA) 10 mg tablet Take 1 tablet by mouth daily with breakfast. 90 tablet 3 01/02/2022 Active Comment on above: Take 1 tablet by kole th daily with breakfast. digoxin 0.125 mg oral tablet (20 sources) Cardiac Glycoside Start: 2 take 1 tablet by mouth once daily digoxin (LANOXIN) 125 mcg (0.125 mg) tablet Indications: Chronic systolic heart failure (HCC) Take 1 tablet by mouth once daily. 45 tablet 3 01/02/2022 Active Start: 07-12-2020 End: 01-02-2022 take 1 tablet by mouth once daily digoxin (LANOXIN) 250 mcg (0.25 mg) tablet Take 1 tablet by mouth once daily. 30 tablet 11 08/15/2021 01/02/2022 Discontinued (Course of therapy completed) Comment on above: Take 1 tablet by kole th once daily. TAKE 1 TABLET BY KOLE TH EVERY DAY ezetimibe 10 mg oral tablet (14 sources) Dietary Cholesterol Absorption Inhibitor Start: 3 take 1 tablet by mouth once daily ezetimibe (ZETIA) 10 mg tablet Take 1 tablet by mouth once daily. 90 tablet 3 04/16/2022 Active Comment on above: Take 1 tablet by kole th once daily. magnesium hydroxide 80 mg/ml oral suspension (8 sources) Start: End: 2 take 30 mL by mouth once daily as needed magnesium hydroxide (MOM) 400 mg/5 mL suspension Take 30 mL by mouth once daily as needed. 0 10/24/2020 01/02/2022 Discontinued (Course of therapy completed) Comment on above: Take 30 mL by mouth once daily as needed. 24 hr metoprolol succinate 50 mg extended release oral tablet (20 sources) beta-Adrenergic Altagracia Start: 3 take 1 tablet by mouth once daily metoprolol succinate ER (TOPROL XL) 50 mg 24 hr tablet Take 1 tablet by mouth once daily. 90 tablet 3 04/16/2022 Active Start: 05-31-2021 End: 04-16-2022 take 1 tablet by mouth once daily metoprolol succinate ER (TOPROL XL) 25 mg 24 hr tablet Take 1 tablet by mouth once daily. 30 tablet 11 08/15/2021 04/16/2022 Discontinued Comment on above: TAKE 1 TABLET BY KOLE TH EVERY DAY Take 1 tablet by kole th once daily. nitroglycerin 0.4 mg sublingual tablet (20 sources) Nitrate Vasodilator Start: 021 nitroglycerin sublingual (NITROSTAT) 0.4 mg SL tablet Dissolve 1 tablet under the tongue as needed for Chest Pain. If no pain relief call 911. 1 tablet 1 07/12/2020 Active Comment on above: Dissolve 1 tablet un donnell the tongue as needed for Chest Pain. If no pain relief call 911. OLANZapine 10 mg disintegrating oral tablet (9 sources) Atypical Antipsychotic Start: 021 End: 022 take 1 tablet by mouth once daily at bedtime OLANZapine orally disintegrating (ZYPREXA ZYDIS) 10 mg disintegrating tablet Take 1 tablet by mouth daily at bedtime. 0 10/24/2020 01/02/2022 Discontinued (Course of therapy completed) Start: 08-06-2010 take 20 mg by mouth once daily at bedtime Zyprexa 20 mg, Oral, qHS, 0 Refill(s) Start Date: 08/06/10 Status: Ordered Comment on above: Take 1 tablet by kole th daily at bedtime. omeprazole 20 mg delayed release oral capsule (20 sources) Proton Pump Inhibitor Start: 01-03-20 take 1 capsule by mouth once daily omeprazole (PRILOSEC) 20 mg capsule Take 1 capsule by mouth once daily. 0 01/02/2022 Active Comment on above: Take 1 capsule by mo [facility] once daily. 1 ml paliperidone palmitate 156 mg/ml prefilled syringe (20 sources) Atypical Antipsychotic Start: 01-03-20 paliperidone palmitate (INVEGA SUSTENNA) 156 mg/mL syrg injection Inject 1 mL intramuscularly. 0 01/02/2022 Active Comment on above: Inject 1 mL intramus cularly. polyethylene glycol 3350 581874 mg / potassium chloride 2970 mg / sodium bicarbonate 6740 mg / sodium chloride 5860 mg / sodium sulfate 10181 mg powder for oral solution (1 source) Osmotic Laxative Start: 08-31-19 End: 08-31-19 peg 3350-Electrolytes (GOLYTELY) 236-22.74-6.74 -5.86 gram suspension Take 4,000 mL by mouth one time only for 1 dose. 1 Each 0 08/30/2022 08/30/2022 Comment on above: Take 4,000 mL by kole th one time only for 1 dose. QUEtiapine 300 mg oral tablet (8 sources) Atypical Antipsychotic Start: 10-25-19 21 End: 01-03-20 22 take 1 tablet by mouth once daily at bedtime QUEtiapine (SEROQUEL) 300 mg tablet Take 1 tablet by mouth daily at bedtime. 0 10/24/2020 01/02/2022 Discontinued Comment on above: Take 1 tablet by kole th daily at bedtime. sacubitril 49 mg / valsartan 51 mg oral tablet (20 sources) Angiotensin 2 Receptor Altagracia Start: 04-16-19 23 take 1 tablet by mouth twice daily sacubitril-valsartan (ENTRESTO) 49-51 mg tablet Take 1 tablet by mouth twice daily. 60 tablet 11 04/16/2022 Active Start: 06-05-2021 End: 04-16-2022 take 1 tablet by mouth twice daily sacubitril-valsartan (ENTRESTO) 24-26 mg tablet Take 1 tablet by mouth twice daily. 60 tablet 08/15/2021 04/16/2022 Discontinued (Course of therapy completed) Comment on above: Take 1 tablet by kole th twice daily. Saw [place] Fruit 450 mg cap (20 sources) Start: 01-03-20 22 take 1 capsule by mouth once daily Saw [place] Fruit 450 mg cap Take by mouth once daily. 0 01/02/2022 Active Comment on above: Take by mouth once d aily. 125 ml sodium chloride 9 mg/ml prefilled syringe (20 sources) Start: 03-02-20 21 End: 09-05-19 23 sodium chloride 0.9 % (flush) 10 mL (BD POSIFLUSH) spironolactone 25 mg oral tablet (20 sources) Aldosterone Antagonist Start: 11-07-19 21 End: 08-16-19 22 take 1 tablet by mouth once daily spironolactone (ALDACTONE) 25 mg tablet Take 1 tablet by mouth once daily. 30 tablet 11 08/15/2021 Active Comment on above: TAKE 1 TABLET BY KOLE TH EVERY DAY Take 1 tablet by kole th once daily. valproic acid 250 mg oral capsule (8 sources) Mood Stabilizer, Anti-epileptic Agent Start: 10-25-19 21 End: 01-03-20 22 take 6 capsules by mouth once daily at bedtime valproic acid (DEPAKENE) 250 mg capsule Take 6 capsules by mouth daily at bedtime. 0 10/24/2020 01/02/2022 Discontinued (Course of therapy completed) Comment on above: Take 6 capsules by m outh daily at bedtime. 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; Translations: [On continuous oral anticoagulation] Onset: 08-30-2022 Episodic Other aftercare (1 source) Drug therapy finding; Translations: [FDC (current) use of anticoagulants] Episodic Other and [...] Results Test Name Value Interpretation Reference Range Facility [facility] 12-20-2023 High Sensitivity Troponin I 87 ng/L High 0-76 [facility] Comment on above: Result Comment: High Sensitive Troponin I Reference Ranges: Female: 0-51 ng/L Male: 0-76 ng/L Testing performed on [employer] using a homogeneous sandwich chemiluminescent immunoassay based on [employer] technology. Performed By: #### T [facility] #### [facility] [address] [place], [place] [address] XR CHEST 2 VIEWSon XR CHEST 2 VIEWS ORIGINAL EXAMINATION: TWO XRAY VIEWS OF THE CHEST12/19/2023 11:20 pm COMPARISON: Chest radiographs 01/09/2007 and 01/07/2007. HISTORY: ORDERING SYSTEM PROVIDED HISTORY: Reason for Exam: Hx of Non-Hodgkin's lymphoma. Chest Pain FINDINGS: Left subclavian AICD with leads projecting over the right atrium and right ventricle. Cardiomediastinal contours are within normal limits. Coronary stent noted. Surgical clips overlie the expected pericardium. Atherosclerotic aorta. Hyperinflated lungs with flattening of the diaphragm. Diffuse interstitial lung markings. No focal consolidation. No pneumothorax or pleural effusion. Age indeterminate posterolateral right 5th rib deformity. Degenerative changes are present in the spine. IMPRESSION: Findings compatible with COPD/emphysema with superimposed mild pulmonary edema or atypical infectious process. I have personally reviewed the images of this examination and agree with the resident's findings and interpretation. Interpreted by: Jamaal Chance Preliminary Report By: Иван Overton Electronically signed By Jamaal Chance Dictated Date: 12/19/2023 11:25:30 PM Prelim Date: 12/19/2023 11:36:42 PM Sign Date: 12/20/2023 12:05:59 AM Ordering Provider: NADIRA MARCELINO [facility] .Auto Diffon 12-19-2023 Basophil, Absolute 0.1 10 3/mcL Normal 0.0-0.2 [facility] Comment on above: Performed By: #### B MP, ANEU, TROPHS, MDW, PBNP, CBC, ADIFF, GFR #### [address] [address] Basophils/100 WBC (Bld) 0.8 % Normal 0.0-2.5 [facility] Comment on above: Performed By: #### B MP, ANEU, TROPHS, MDW, PBNP, CBC, ADIFF, GFR #### [address] [address] Eosinophil, Absolute 0.2 10 3/mcL Normal 0.0-0.4 [facility] Comment on above: Performed By: #### B MP, ANEU, TROPHS, MDW, PBNP, CBC, ADIFF, GFR #### [address] [address] Eosinophils/100 WBC (Bld) 2.0 % Normal 0.0-7.0 [facility] Comment on above: Performed By: #### B MP, ANEU, TROPHS, MDW, PBNP, CBC, ADIFF, GFR #### [address] [address] Lymphocyte, Absolute 1.9 10 3/mcL Normal 0.8-3.9 [facility] Comment on above: Performed By: #### B MP, ANEU, TROPHS, MDW, PBNP, CBC, ADIFF, GFR #### [address] [address] Lymphocytes/100 WBC (Bld) 19.1 % Normal 10.0-50.0 [facility] Comment on above: Performed By: #### B MP, ANEU, TROPHS, MDW, PBNP, CBC, ADIFF, GFR #### [address] [address] Monocyte, Absolute 0.8 10 3/mcL Normal 0.2-1.0 [facility] Comment on above: Performed By: #### B MP, ANEU, TROPHS, MDW, PBNP, CBC, ADIFF, GFR #### [address] [address] Monocytes/100 WBC (Bld) 8.6 % Normal 1.7-13.0 [facility] Comment on above: Performed By: #### B MP, NKIKIE, MERI, W, PBNP, CBC, ADIFF, GFR #### [address] [address] Neutrophils/100 WBC (Bld) 69.5 % Normal 37.0-80.0 [facility] Comment on above: Performed By: #### B MAYELA, NIKKIE, MERI, SHALONDA, PBNP, CBC, ADIFF, GFR #### [address] [address] .GFRon 12-19-2023 GFR 75 ml/min/1.73sqm [facility] Comment on above: Result Comment: GFR Population mean for , Non- Americans Ages 20-29 = 116 mL/min/1.73 sq.m. Ages 30-39 = 107 mL/min/1.73 sq.m. Ages 40-49 = 99 mL/min/1.73 sq.m. Ages 50-59 = 93 mL/min/1.73 sq.m. Ages 60-69 = 85 mL/min/1.73 sq.m. Ages 70+ = 75 mL/min/1.73 sq.m. Chronic Kidney Disease: Less than 60 mL/min/1.73 square meters End Stage Renal Disease: Less than 15 mL/min/1.73 square meters Performed By: #### B MP, NIKKIE, MERI, SHALONDA, PBNP, CBC, ADIFF, GFR #### [address] [address] GFR Non- 62 ml/min/1.73sqm Normal [facility] Comment on above: Result Comment: GFR Population mean for , Non- Americans Ages 20-29 = 116 mL/min/1.73 sq.m. Ages 30-39 = 107 mL/min/1.73 sq.m. Ages 40-49 = 99 mL/min/1.73 sq.m. Ages 50-59 = 93 mL/min/1.73 sq.m. Ages 60-69 = 85 mL/min/1.73 sq.m. Ages 70+ = 75 mL/min/1.73 sq.m. Chronic Kidney Disease: Less than 60 mL/min/1.73 square meters End Stage Renal Disease: Less than 15 mL/min/1.73 square meters Performed By: #### B MAYELA, NIKKIE, LARYS, MDW, PBNP, CBC, ADIFF, GFR #### [address] [address] .MDWon 12-19-2023 Monocyte Distribution Width 17.01 Normal 0.00-20.00 [facility] Comment on above: Result Comment: For ED adult patients suspected of sepsis, MDW<=20.0 does not rule out sepsis or risk of sepsis Performed By: #### B MAYELA, NIKKIE, LARYS, MDW, PBNP, CBC, ADIFF, GFR #### [address] [address] .NEUABSon 12-19-2023 Neutrophil, Absolute 6.8 10 3/mcL High 2.9-6.2 [facility] Comment on above: Performed By: #### B MAYELA, NIKKIE, LARYS, MDW, PBNP, CBC, ADIFF, GFR #### [address] [address] BMPon 12-19-2023 BUN/Creatinine Ratio 18 ratio Normal 7-27 [facility] Comment on above: Performed By: #### B MAYELA, NIKKIE, LARYS, MDW, PBNP, CBC, ADIFF, GFR #### [address] [address] Calcium [Mass/Vol] 9.4 mg/dL Normal 8.4-10.2 [facility] Comment on above: Performed By: #### B MAYELA, NIKKIE, LARYS, MDW, PBNP, CBC, ADIFF, GFR #### [address] [address] Chloride [Moles/Vol] 102 mmol/L Normal 98-107 [facility] Comment on above: Performed By: #### B NIKKIE PEDRO TROPHS, MDW, PBNP, CBC, ADIFF, GFR #### [address] [address] CO2 [Moles/Vol] 24 mmol/L Normal 23-31 [facility] Comment on above: Performed By: #### B NIKKIE PEDRO TROPHS, MDW, PBNP, CBC, ADIFF, GFR #### [address] [address] Creatinine [Mass/Vol] 1.16 mg/dL Normal 0.70-1.30 [facility] Comment on above: Result Comment: Test ing performed on [employer] Dimension EXL analyzer using a modified kinetic Maximo technique. Performed By: #### B NIKKIE PEDRO TROPHS, MDW, PBNP, CBC, ADIFF, GFR #### [address] [address] Electrolyte Balance 9.0 mEq/L Normal 4.0-15.0 [facility] Comment on above: Performed By: #### B NIKKIE PEDRO TROPHS, MDW, PBNP, CBC, ADIFF, GFR #### [address] [address] Glucose [Mass/Vol] 102 mg/dL Normal 83-110 [facility] Comment on above: Performed By: #### B NIKKIE PEDRO TROPHS, MDW, PBNP, CBC, ADIFF, GFR #### [address] [address] Potassium [Moles/Vol] 4.4 mmol/L Normal 3.5-5.1 [facility] Comment on above: Performed By: #### B NIKKIE PEDRO TROPHS, MDW, PBNP, CBC, ADIFF, GFR #### [address] [address] Sodium [Moles/Vol] 135 mmol/L Low 136-145 [facility] Comment on above: Performed By: #### B MP, ANEU, TROPHS, MDW, PBNP, CBC, ADIFF, GFR #### [address] [address] Urea nitrogen [Mass/Vol] 21 mg/dL High 7-18 [facility] Comment on above: Performed By: #### B MP, ANEU, TROPHS, MDW, PBNP, CBC, ADIFF, GFR #### [place] [address] CBCon 12-19-2023 Erythrocyte distribution width (RBC) [Ratio] 13.4 % Normal 11.5-14.5 [facility] Comment on above: Performed By: #### B MP, ANEU, TROPHS, MDW, PBNP, CBC, ADIFF, GFR #### [place] [id number] Hematocrit (Bld) [Volume fraction] 37.8 % Low 42.0-52.0 [facility] Comment on above: Performed By: #### B MP, ANEU, TROPHS, MDW, PBNP, CBC, ADIFF, GFR #### [place] [address] Hgb 12.9 G/dL Low 14.0-18.0 [facility] Comment on above: Performed By: #### B MP, ANEU, TROPHS, MDW, PBNP, CBC, ADIFF, GFR #### [place] [id number] MCH (RBC) [Entitic mass] 32.8 pg High 27.0-31.2 [facility] Comment on above: Performed By: #### B MP, ANEU, TROPHS, MDW, PBNP, CBC, ADIFF, GFR #### [place] [address] MCHC 34.0 G/dL Normal 31.8-35.4 [facility] Comment on above: Performed By: #### B MP, ANEU, TROPHS, MDW, PBNP, CBC, ADIFF, GFR #### [place] [id number] MCV (RBC) [Entitic vol] 96.3 fL High 80.0-94.0 [facility] Comment on above: Performed By: #### B MAYELA, NIKKIE, MERI, MDW, PBNP, CBC, ADIFF, GFR #### [address] [address] Platelet 173 10 3/mcL Normal 130-400 [facility] Comment on above: Performed By: #### B MP, ANEU, LARYS, MDW, PBNP, CBC, ADIFF, GFR #### [address] [address] Platelet mean volume (Bld) [Entitic vol] 7.7 fL Normal 7.4-10.4 [facility] Comment on above: Performed By: #### B MAYELA, ANEU, LARYS, MDW, PBNP, CBC, ADIFF, GFR #### [address] [address] RBC 3.93 10 6/mcL Low 4.04-6.13 [facility] Comment on above: Performed By: #### B MAYELA, ANEU, LARYS, MDW, PBNP, CBC, ADIFF, GFR #### [address] [address] WBC 9.8 10 3/mcL Normal 4.6-10.8 [facility] Comment on above: Performed By: #### B MAYELA, NIKKIE, LARYS, MDW, PBNP, CBC, ADIFF, GFR #### [address] [address] PBNPon 12-19-2023 Natriuretic peptide B (Bld) [Mass/Vol] 5382 pg/mL High 0-125 [facility] Comment on above: Result Comment: NT-p roBNP results of less than 300 pg/mL effectively rules out acute congestive heart failure with 99% negative predictive value. Performed By: #### B MP, ANEU, LARYS, MDW, PBNP, CBC, ADIFF, GFR #### [address] [address] TROPHSon 12-19-2023 High Sensitivity Troponin I 89 ng/L High 0-76 [facility] Comment on above: Result Comment: High Sensitive Troponin I Reference Ranges: Female: 0-51 ng/L Male: 0-76 ng/L Testing performed on [employer] using a homogeneous sandwich chemiluminescent immunoassay based on [employer] technology. Performed By: #### B MP, ANEU, TROPHS, MDW, PBNP, CBC, ADIFF, GFR #### [place] [id number] [place], [place] [address] [facility]20[facility] THAD MERCADO ([id number]) 1950 M Date Time Provider Department 09/04/22 JOHNNA MANCIA During your visit today, we recorded the following information about you: Ayana Paul 09/04/2022 12:01 PM Signed PATIENT STATED HE IS SEEKING SERVICES ELSEWHERE AT [facility] Allergies As of Date: 09/04/2022 (No Known Allergies) Date Reviewed: 08/30/2022 Reviewed by: Johnna Mancia PA-C - Fully Assessed Reason for Visit: Patient Update [1234] Prescriptions as of 09/04/2022 - apixaban (ELIQUIS) 5 mg tab(s) Take 1 tablet by mouth twice daily. - metoprolol succinate ER (TOPROL XL) 50 mg 24 hr tablet Take 1 tablet by mouth once daily. - sacubitril-valsartan (ENTRESTO) 49-51 mg tablet Take 1 tablet by mouth twice daily. - ezetimibe (ZETIA) 10 mg tablet Take 1 tablet by mouth once daily. - paliperidone palmitate (INVEGA SUSTENNA) 156 mg/mL syrg injection Inject 1 mL intramuscularly. - omeprazole (PRILOSEC) 20 mg capsule Take 1 capsule by mouth once daily. - Saw Wilmore Fruit 450 mg cap Take by mouth once daily. - dapagliflozin (FARXIGA) 10 mg tablet Take 1 tablet by mouth daily with breakfast. - digoxin (LANOXIN) 125 mcg (0.125 mg) tablet Take 1 tablet by mouth once daily. - bempedoic acid (NEXLETOL) 180 mg tablet Take 1 tablet (180 mg) by mouth daily at bedtime. - spironolactone (ALDACTONE) 25 mg tablet Take 1 tablet by mouth once daily. - acetaminophen (TYLENOL) 325 mg tablet Take 2 tablets by mouth every 6 hours as needed for pain. - nitroglycerin sublingual (NITROSTAT) 0.4 mg SL tablet Dissolve 1 tablet under the tongue as needed for Chest Pain. If no pain relief call 911. - cholecalciferol (VITAMIN D3) 5,000 unit tab Take 2,000 Units by mouth once daily. - Aspirin 81 mg ORAL Tab Take one(1) tablet daily. Facility-Administered Medications as of 09/04/2022 - sodium chloride 0.9 % (flush) 10 mL (BD POSIFLUSH) Problem List As Of Date 09/04/2022 Noted Resolved PURE HYPERCHOLESTEROLEM [E78.00] 03/24/2008 LYMPHOMAS NEC HEAD [C85.81] 03/24/2008 LOSS OF WEIGHT [R63.4] 03/24/2008 CARDIOMYOPATH IN OTHER DIS [I43] 03/24/2008 MALAISE AND FATIGUE NEC [R53.81, R53.83] 03/24/2008 OBSESSIVE-COMPULSIVE DIS [F42.9] 03/24/2008 BIPOLAR DISORDER NOS [F31.9] 03/24/2008 IMPOTENCE, ORGANIC ORIGN [N52.9] 03/24/2008 ESOPHAGEAL REFLUX [K21.9] 03/24/2008 PANIC DISORDER WITHOUT AGORAPHOBIA [F41.0] 03/24/2008 Tobacco use disorder [F17.200] 03/24/2008 PVD (peripheral vascular disease) (HCC) [I73.9] 03/24/2008 CONSTIPATION NOS [K59.00] 03/24/2008 BACKACHE NOS [M54.9] 03/24/2008 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] 03/24/2008 Atherosclerosis of [place] artery of extremity w*03/24/2008 ALLERGIC RHINITIS NOS [J30.9] 03/24/2008 ACUTE GASTRITIS W/O HEMORRHAGE [K29.00] 09/16/2008 NAUSEA ALONE [R11.0] 09/16/2008 Acute liver failure without hepatic coma [K72.0*09/25/2018 10/09/2018 Biventricular heart failure (HCC) [I50.82] 09/26/2018 ATN (acute tubular necrosis) (HCC) [N17.0] 09/26/2018 10/09/2018 Typical atrial flutter (HCC) [I48.3] 09/26/2018 Acute on chronic systolic heart failure (HCC) [*09/26/2018 10/09/2018 Left ventricular thrombus [I51.3] 09/26/2018 Cardiogenic shock (HCC) [R57.0] 09/26/2018 10/09/2018 Coagulopathy (HCC) [D68.9] 09/28/2018 Moderate protein-calorie malnutrition (HCC) [E4*09/28/2018 Febrile [R50.9] 09/29/2018 10/09/2018 Hypo-osmolality and hyponatremia [E87.1] 09/29/2018 10/09/2018 Acute deep vein thrombosis (DVT) of popliteal v*09/30/2018 10/09/2018 Coronary artery disease involving [place] cruz*01/07/2019 Cardiomyopathy, ischemic [I25.5] 01/07/2019 Bipolar disorder (HCC), manic, severe [F31.9] 08/29/2020 Noncompliance [Z91.199] 08/29/2020 Agitation [R45.1] 09/05/2020 Malnutrition of mild degree (HCC) [E44.1] 09/06/2020 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, *09/14/2020 Overweight [E66.3] 10/20/2020 Encounter Status:Closed by AYANA PAUL on 09/04/22 [facility] [place] 08-30-2022 CNOV Office Visit (GENSWS ) THAD MERCADO ([id number]) 1950 M Date Time Provider Department 08/30/22 9:30 AM JOHNNA MANCIA During your visit today, we recorded the following information about you: Temperature Pulse Blood pressure Weight 97 degrees 80/minute 98/54 76.2 kg Height 1.88 m Nai Limon LPN 08/30/2022 9:50 AM Signed [...] last Mammogram screening? N/A Last Colonoscopy: 2008 NICO Bruner PA-C 09/05/2022 1:40 PM Signed HISTORY AND PHYSICAL Thad Mercado 1950 REFERRING PHYSICIAN: No ref. provider found CHIEF COMPLAINT: Consult (Colonoscopy) HPI: The patient is a 72 year old male referred for endoscopy. Patient resides in assisted living facility and presents today with caregiver from his facility. Thad notes no colon complaints. Patient denies any change in bowel habits, weight changes, blood in stools, black tarry stools or abdominal pain. Denies family history of colon issues. The patient notes no upper GI complaints. Thad has undergone prior endoscopy, last in [address] Gibbs. No concerning findings at that time. Patient's medical history is significant for COPD, cardiomyopathy, s/p CABG, ICD in place, maintained on oral anticoagulation PAST MEDICAL HISTORY Diagnosis Date Acute gastritis without mention of hemorrhage Allergic rhinitis, cause 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 Atherosclerosis of [place] arteries of the extremities with intermittent claudication 03/24/2008 left Backache, 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 Bipolar affective disorder, currently manic, moderate ([facility]) 2010 hospitalized at [facility] 04/06/2010-04/27/2010 Bipolar disorder, unspecified ([facility]) 03/24/2008 Cardiomyopathy in other diseases classified elsewhere 03/24/2008 COPD (chronic obstructive pulmonary disease) ([facility]) Esophageal reflux 03/24/2008 Hx of CABG 2006 Impotence of organic origin 03/24/2008 Ischemic cardiomyopathy 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HCC) Loss of weight 03/24/2008 Loss of weight Lymphoma in remission ([facility]) chemo and radiation Nausea alone Nonorganic sleep disorder, 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 [facility] CNPN Telephone (AMARA) THAD MERCADO ([id number]) 1950 M Date Time Provider Department 08/27/22 TYSHAWN HORN JR During your visit today, we recorded the following information about you: YASSINE Lopez 08/27/2022 1:27 PM Signed Results received via Fax from [facility]. Sent to scanned documents. Please watch for document upload and then copy link to sent to Dr. Horn for review. Thank you. YASSINE Lopez LPN 08/27/2022 4:15 PM Signed Please see attached and advise. Scan on 08/20/2022 4:49 PM by External Provider, PAEliezerC: MRI Tyshawn Horn MD 08/27/2022 9:58 PM Signed Rad report suggests MRI brain unremarkable for etiology of symptoms. MD Adriana Rivas LPN 08/28/2022 9:19 AM Signed Se TC and MCM dated 08/28/22. Offered follow up appointment to go over results detail. Adriana Matias LPN Allergies As of Date: 08/27/2022 (No Known Allergies) Date Reviewed: 07/22/2022 Reviewed by: Tyshawn Horn Jr., MD - Fully Assessed Reason for Visit: Results [95] Prescriptions as of 08/28/2022 - apixaban (ELIQUIS) 5 mg tab(s) Take 1 tablet by mouth twice daily. - metoprolol succinate ER (TOPROL XL) 50 mg 24 hr tablet Take 1 tablet by mouth once daily. - sacubitril-valsartan (ENTRESTO) 49-51 mg tablet Take 1 tablet by mouth twice daily. - ezetimibe (ZETIA) 10 mg tablet Take 1 tablet by mouth once daily. - paliperidone palmitate (INVEGA SUSTENNA) 156 mg/mL syrg injection Inject 1 mL intramuscularly. - omeprazole (PRILOSEC) 20 mg capsule Take 1 capsule by mouth once daily. - Saw Wilmore Fruit 450 mg cap Take by mouth once daily. - dapagliflozin (FARXIGA) 10 mg tablet Take 1 tablet by mouth daily with breakfast. - digoxin (LANOXIN) 125 mcg (0.125 mg) tablet Take 1 tablet by mouth once daily. - bempedoic acid (NEXLETOL) 180 mg tablet Take 1 tablet (180 mg) by mouth daily at bedtime. - spironolactone (ALDACTONE) 25 mg tablet Take 1 tablet by mouth once daily. - acetaminophen (TYLENOL) 325 mg tablet Take 2 tablets by mouth every 6 hours as needed for pain. - nitroglycerin sublingual (NITROSTAT) 0.4 mg SL tablet Dissolve 1 tablet under the tongue as needed for Chest Pain. If no pain relief call 911. - cholecalciferol (VITAMIN D3) 5,000 unit tab Take 2,000 Units by mouth once daily. - Aspirin 81 mg ORAL Tab Take one(1) tablet daily. Facility-Administered Medications as of 08/28/2022 - sodium chloride 0.9 % (flush) 10 mL (BD POSIFLUSH) Problem List As Of Date 08/27/2022 Noted Resolved PURE HYPERCHOLESTEROLEM [E78.00] 03/24/2008 LYMPHOMAS NEC HEAD [C85.81] 03/24/2008 LOSS OF WEIGHT [R63.4] 03/24/2008 CARDIOMYOPATH IN OTHER DIS [I43] 03/24/2008 MALAISE AND FATIGUE NEC [R53.81, R53.83] 03/24/2008 OBSESSIVE-COMPULSIVE DIS [F42.9] 03/24/2008 BIPOLAR DISORDER NOS [F31.9] 03/24/2008 IMPOTENCE, ORGANIC ORIGN [N52.9] 03/24/2008 ESOPHAGEAL REFLUX [K21.9] 03/24/2008 PANIC DISORDER WITHOUT AGORAPHOBIA [F41.0] 03/24/2008 Tobacco use disorder [F17.200] 03/24/2008 PVD (peripheral vascular disease) (HCC) [I73.9] 03/24/2008 CONSTIPATION NOS [K59.00] 03/24/2008 BACKACHE NOS [M54.9] 03/24/2008 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] 03/24/2008 Atherosclerosis of [place] artery of extremity w*03/24/2008 ALLERGIC RHINITIS NOS [J30.9] 03/24/2008 ACUTE GASTRITIS W/O HEMORRHAGE [K29.00] 09/16/2008 NAUSEA ALONE [R11.0] 09/16/2008 Acute liver failure without hepatic coma [K72.0*09/25/2018 10/09/2018 Biventricular heart failure (HCC) [I50.82] 09/26/2018 ATN (acute tubular necrosis) (HCC) [N17.0] 09/26/2018 10/09/2018 Typical atrial flutter (HCC) [I48.3] 09/26/2018 Acute on chronic systolic heart failure (HCC) [*09/26/2018 10/09/2018 Left ventricular thrombus [I51.3] 09/26/2018 Cardiogenic shock (HCC) [R57.0] 09/26/2018 10/09/2018 Coagulopathy (HCC) [D68.9] 09/28/2018 Moderate protein-calorie malnutrition (HCC) [E4*09/28/2018 Febrile [R50.9] 09/29/2018 10/09/2018 Hypo-osmolality and hyponatremia [E87.1] 09/29/2018 10/09/2018 Acute deep vein thrombosis (DVT) of popliteal v*09/30/2018 10/09/2018 Coronary artery disease involving point [place] cruz*01/07/2019 Cardiomyopathy, ischemic [I25.5] 01/07/2019 Bipolar disorder (HCC), manic, severe [F31.9] 08/29/2020 Noncompliance [Z91.199] 08/29/2020 Agitation [R45.1] 09/05/2020 Malnutrition of mild degree (HCC) [E44.1] 09/06/2020 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, *09/14/2020 Overweight [E66.3] 10/20/2020 Encounter Status:Closed by ADRIANA MATIAS on 08/28/22 [facility] ELYSIATHAD Lalito ([id number]) 1950 M Date Time Provider Department 08/22/22 TYSHAWN HORN JR During your visit today, we recorded the following information about you: Adriana Matias LPN 08/22/2022 12:27 PM Signed Received fax from [facility] requesting office notes. Faxed MARIBELL dated July 22 2022 to [phone]. Adriana Matias LPN Allergies As of Date: 08/22/2022 (No Known Allergies) Date Reviewed: 07/22/2022 Reviewed by: Tyshawn Horn Jr., MD - Fully Assessed Reason for Visit: Patient Update [1234] Prescriptions as of 08/22/2022 - apixaban (ELIQUIS) 5 mg tab(s) Take 1 tablet by mouth twice daily. - metoprolol succinate ER (TOPROL XL) 50 mg 24 hr tablet Take 1 tablet by mouth once daily. - sacubitril-valsartan (ENTRESTO) 49-51 mg tablet Take 1 tablet by mouth twice daily. - ezetimibe (ZETIA) 10 mg tablet Take 1 tablet by mouth once daily. - paliperidone palmitate (INVEGA SUSTENNA) 156 mg/mL syrg injection Inject 1 mL intramuscularly. - omeprazole (PRILOSEC) 20 mg capsule Take 1 capsule by mouth once daily. - Saw Wilmore Fruit 450 mg cap Take by mouth once daily. - dapagliflozin (FARXIGA) 10 mg tablet Take 1 tablet by mouth daily with breakfast. - digoxin (LANOXIN) 125 mcg (0.125 mg) tablet Take 1 tablet by mouth once daily. - bempedoic acid (NEXLETOL) 180 mg tablet Take 1 tablet (180 mg) by mouth daily at bedtime. - spironolactone (ALDACTONE) 25 mg tablet Take 1 tablet by mouth once daily. - acetaminophen (TYLENOL) 325 mg tablet Take 2 tablets by mouth every 6 hours as needed for pain. - nitroglycerin sublingual (NITROSTAT) 0.4 mg SL tablet Dissolve 1 tablet under the tongue as needed for Chest Pain. If no pain relief call 911. - cholecalciferol (VITAMIN D3) 5,000 unit tab Take 2,000 Units by mouth once daily. - Aspirin 81 mg ORAL Tab Take one(1) tablet daily. Facility-Administered Medications as of 08/22/2022 - sodium chloride 0.9 % (flush) 10 mL (BD POSIFLUSH) Problem List As Of Date 08/22/2022 Noted Resolved PURE HYPERCHOLESTEROLEM [E78.00] 03/24/2008 LYMPHOMAS NEC HEAD [C85.81] 03/24/2008 LOSS OF WEIGHT [R63.4] 03/24/2008 CARDIOMYOPATH IN OTHER DIS [I43] 03/24/2008 MALAISE AND FATIGUE NEC [R53.81, R53.83] 03/24/2008 OBSESSIVE-COMPULSIVE DIS [F42.9] 03/24/2008 BIPOLAR DISORDER NOS [F31.9] 03/24/2008 IMPOTENCE, ORGANIC ORIGN [N52.9] 03/24/2008 ESOPHAGEAL REFLUX [K21.9] 03/24/2008 PANIC DISORDER WITHOUT AGORAPHOBIA [F41.0] 03/24/2008 Tobacco use disorder [F17.200] 03/24/2008 PVD (peripheral vascular disease) (HCC) [I73.9] 03/24/2008 CONSTIPATION NOS [K59.00] 03/24/2008 BACKACHE NOS [M54.9] 03/24/2008 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] 03/24/2008 Atherosclerosis of [place] artery of extremity w*03/24/2008 ALLERGIC RHINITIS NOS [J30.9] 03/24/2008 ACUTE GASTRITIS W/O HEMORRHAGE [K29.00] 09/16/2008 NAUSEA ALONE [R11.0] 09/16/2008 Acute liver failure without hepatic coma [K72.0*09/25/2018 10/09/2018 Biventricular heart failure (HCC) [I50.82] 09/26/2018 ATN (acute tubular necrosis) (HCC) [N17.0] 09/26/2018 10/09/2018 Typical atrial flutter (HCC) [I48.3] 09/26/2018 Acute on chronic systolic heart failure (HCC) [*09/26/2018 10/09/2018 Left ventricular thrombus [I51.3] 09/26/2018 Cardiogenic shock (HCC) [R57.0] 09/26/2018 10/09/2018 Coagulopathy (HCC) [D68.9] 09/28/2018 Moderate protein-calorie malnutrition (HCC) [E4*09/28/2018 Febrile [R50.9] 09/29/2018 10/09/2018 Hypo-osmolality and hyponatremia [E87.1] 09/29/2018 10/09/2018 Acute deep vein thrombosis (DVT) of popliteal v*09/30/2018 10/09/2018 Coronary artery disease involving point [place] cruz*01/07/2019 Cardiomyopathy, ischemic [I25.5] 01/07/2019 Bipolar disorder (HCC), manic, severe [F31.9] 08/29/2020 Noncompliance [Z91.199] 08/29/2020 Agitation [R45.1] 09/05/2020 Malnutrition of mild degree (HCC) [E44.1] 09/06/2020 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, *09/14/2020 Overweight [E66.3] 10/20/2020 Encounter Status:Closed by ADRIANA MATIAS on 08/22/22 Normal [facility] Lopez Ashley 08-05-2022 Ammonia (P) [Mass/Vol] ug/dL Low [facility] ([place]) Comment on above: Performed By: #### A #### Adonis [address] [address] LABORATORYOrdered By: SYSTEM SYSTEM on 08-05-2022 Ammonia (P) [Mass/Vol] umol/l Invalid Interpretation Code umol/l AO ADM SS CNPNon 08-02-2022 CNPN Telephone (AMARA) THAD MERCADO ([id number]) 1950 M Date Time Provider Department 08/02/22 TYSHAWN HORN JR During your visit today, we recorded the following information about you: Johnna aSnches RN 08/02/2022 10:31 AM Signed Una with [facility] Precert called in and reports provider needs to initiate the authorization for the MRI they ordered through the [facility]. Adriana Matias LPN 08/02/2022 11:02 AM Signed MRI referral placed for [facility]. Adriana Matias LPN Allergies As of Date: 08/02/2022 (No Known Allergies) Date Reviewed: 07/22/2022 Reviewed by: Tyshawn Horn Jr., MD - Fully Assessed Reason for Visit: MRI Authorization [Other] Prescriptions as of 08/02/2022 - apixaban (ELIQUIS) 5 mg tab(s) Take 1 tablet by mouth twice daily. - metoprolol succinate ER (TOPROL XL) 50 mg 24 hr tablet Take 1 tablet by mouth once daily. - sacubitril-valsartan (ENTRESTO) 49-51 mg tablet Take 1 tablet by mouth twice daily. - ezetimibe (ZETIA) 10 mg tablet Take 1 tablet by mouth once daily. - paliperidone palmitate (INVEGA SUSTENNA) 156 mg/mL syrg injection Inject 1 mL intramuscularly. - omeprazole (PRILOSEC) 20 mg capsule Take 1 capsule by mouth once daily. - Saw Wilmore Fruit 450 mg cap Take by mouth once daily. - dapagliflozin (FARXIGA) 10 mg tablet Take 1 tablet by mouth daily with breakfast. - digoxin (LANOXIN) 125 mcg (0.125 mg) tablet Take 1 tablet by mouth once daily. - bempedoic acid (NEXLETOL) 180 mg tablet Take 1 tablet (180 mg) by mouth daily at bedtime. - spironolactone (ALDACTONE) 25 mg tablet Take 1 tablet by mouth once daily. - acetaminophen (TYLENOL) 325 mg tablet Take 2 tablets by mouth every 6 hours as needed for pain. - nitroglycerin sublingual (NITROSTAT) 0.4 mg SL tablet Dissolve 1 tablet under the tongue as needed for Chest Pain. If no pain relief call 911. - cholecalciferol (VITAMIN D3) 5,000 unit tab Take 2,000 Units by mouth once daily. - Aspirin 81 mg ORAL Tab Take one(1) tablet daily. Facility-Administered Medications as of 08/02/2022 - sodium chloride 0.9 % (flush) 10 mL (BD POSIFLUSH) Problem List As Of Date 08/02/2022 Noted Resolved PURE HYPERCHOLESTEROLEM [E78.00] 03/24/2008 LYMPHOMAS NEC HEAD [C85.81] 03/24/2008 LOSS OF WEIGHT [R63.4] 03/24/2008 CARDIOMYOPATH IN OTHER DIS [I43] 03/24/2008 MALAISE AND FATIGUE NEC [R53.81, R53.83] 03/24/2008 OBSESSIVE-COMPULSIVE DIS [F42.9] 03/24/2008 BIPOLAR DISORDER NOS [F31.9] 03/24/2008 IMPOTENCE, ORGANIC ORIGN [N52.9] 03/24/2008 ESOPHAGEAL REFLUX [K21.9] 03/24/2008 PANIC DISORDER WITHOUT AGORAPHOBIA [F41.0] 03/24/2008 Tobacco use disorder [F17.200] 03/24/2008 PVD (peripheral vascular disease) (HCC) [I73.9] 03/24/2008 CONSTIPATION NOS [K59.00] 03/24/2008 BACKACHE NOS [M54.9] 03/24/2008 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] 03/24/2008 Atherosclerosis of [place] artery of extremity w*03/24/2008 ALLERGIC RHINITIS NOS [J30.9] 03/24/2008 ACUTE GASTRITIS W/O HEMORRHAGE [K29.00] 09/16/2008 NAUSEA ALONE [R11.0] 09/16/2008 Acute liver failure without hepatic coma [K72.0*09/25/2018 10/09/2018 Biventricular heart failure (HCC) [I50.82] 09/26/2018 ATN (acute tubular necrosis) (HCC) [N17.0] 09/26/2018 10/09/2018 Typical atrial flutter (HCC) [I48.3] 09/26/2018 Acute on chronic systolic heart failure (HCC) [*09/26/2018 10/09/2018 Left ventricular thrombus [I51.3] 09/26/2018 Cardiogenic shock (HCC) [R57.0] 09/26/2018 10/09/2018 Coagulopathy (HCC) [D68.9] 09/28/2018 Moderate protein-calorie malnutrition (HCC) [E4*09/28/2018 Febrile [R50.9] 09/29/2018 10/09/2018 Hypo-osmolality and hyponatremia [E87.1] 09/29/2018 10/09/2018 Acute deep vein thrombosis (DVT) of popliteal v*09/30/2018 10/09/2018 Coronary artery disease involving point hope ir[place] cruz*01/07/2019 Cardiomyopathy, ischemic [I25.5] 01/07/2019 Bipolar disorder (HCC), manic, severe [F31.9] 08/29/2020 Noncompliance [Z91.199] 08/29/2020 Agitation [R45.1] 09/05/2020 Malnutrition of mild degree (HCC) [E44.1] 09/06/2020 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, *09/14/2020 Overweight [E66.3] 10/20/2020 Encounter Status:Closed by ADRIANA MATIAS on 08/02/22 [facility] [place] 08-01-2022 [facility] Telephone ([facility]) THAD MERCADO ([id number]) 1950 M Date Time Provider Department 08/01/22 TYSHAWN HORN JR During your visit today, we recorded the following information about you: YASSINE Lopez 08/01/2022 4:12 PM Signed Fax received from [facility] requesting a signed ammonia level lab order from Dr. Horn. As order was previously placed, order with electronic signature printed and faxed back as requested. YASSINE Lopez Allergies As of Date: 08/01/2022 (No Known Allergies) Date Reviewed: 07/22/2022 Reviewed by: Tyshawn Horn Jr., MD - Fully Assessed Reason for Visit: Orders [681] Prescriptions as of 08/01/2022 - apixaban (ELIQUIS) 5 mg tab(s) Take 1 tablet by mouth twice daily. - metoprolol succinate ER (TOPROL XL) 50 mg 24 hr tablet Take 1 tablet by mouth once daily. - sacubitril-valsartan (ENTRESTO) 49-51 mg tablet Take 1 tablet by mouth twice daily. - ezetimibe (ZETIA) 10 mg tablet Take 1 tablet by mouth once daily. - paliperidone palmitate (INVEGA SUSTENNA) 156 mg/mL syrg injection Inject 1 mL intramuscularly. - omeprazole (PRILOSEC) 20 mg capsule Take 1 capsule by mouth once daily. - Saw Wilmore Fruit 450 mg cap Take by mouth once daily. - dapagliflozin (FARXIGA) 10 mg tablet Take 1 tablet by mouth daily with breakfast. - digoxin (LANOXIN) 125 mcg (0.125 mg) tablet Take 1 tablet by mouth once daily. - bempedoic acid (NEXLETOL) 180 mg tablet Take 1 tablet (180 mg) by mouth daily at bedtime. - spironolactone (ALDACTONE) 25 mg tablet Take 1 tablet by mouth once daily. - acetaminophen (TYLENOL) 325 mg tablet Take 2 tablets by mouth every 6 hours as needed for pain. - nitroglycerin sublingual (NITROSTAT) 0.4 mg SL tablet Dissolve 1 tablet under the tongue as needed for Chest Pain. If no pain relief call 911. - cholecalciferol (VITAMIN D3) 5,000 unit tab Take 2,000 Units by mouth once daily. - Aspirin 81 mg ORAL Tab Take one(1) tablet daily. Facility-Administered Medications as of 08/01/2022 - sodium chloride 0.9 % (flush) 10 mL (BD POSIFLUSH) Problem List As Of Date 08/01/2022 Noted Resolved PURE HYPERCHOLESTEROLEM [E78.00] 03/24/2008 LYMPHOMAS NEC HEAD [C85.81] 03/24/2008 LOSS OF WEIGHT [R63.4] 03/24/2008 CARDIOMYOPATH IN OTHER DIS [I43] 03/24/2008 MALAISE AND FATIGUE NEC [R53.81, R53.83] 03/24/2008 OBSESSIVE-COMPULSIVE DIS [F42.9] 03/24/2008 BIPOLAR DISORDER NOS [F31.9] 03/24/2008 IMPOTENCE, ORGANIC ORIGN [N52.9] 03/24/2008 ESOPHAGEAL REFLUX [K21.9] 03/24/2008 PANIC DISORDER WITHOUT AGORAPHOBIA [F41.0] 03/24/2008 Tobacco use disorder [F17.200] 03/24/2008 PVD (peripheral vascular disease) (HCC) [I73.9] 03/24/2008 CONSTIPATION NOS [K59.00] 03/24/2008 BACKACHE NOS [M54.9] 03/24/2008 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] 03/24/2008 Atherosclerosis of [place] artery of extremity w*03/24/2008 ALLERGIC RHINITIS NOS [J30.9] 03/24/2008 ACUTE GASTRITIS W/O HEMORRHAGE [K29.00] 09/16/2008 NAUSEA ALONE [R11.0] 09/16/2008 Acute liver failure without hepatic coma [K72.0*09/25/2018 10/09/2018 Biventricular heart failure (HCC) [I50.82] 09/26/2018 ATN (acute tubular necrosis) (HCC) [N17.0] 09/26/2018 10/09/2018 Typical atrial flutter (HCC) [I48.3] 09/26/2018 Acute on chronic systolic heart failure (HCC) [*09/26/2018 10/09/2018 Left ventricular thrombus [I51.3] 09/26/2018 Cardiogenic shock (HCC) [R57.0] 09/26/2018 10/09/2018 Coagulopathy (HCC) [D68.9] 09/28/2018 Moderate protein-calorie malnutrition (HCC) [E4*09/28/2018 Febrile [R50.9] 09/29/2018 10/09/2018 Hypo-osmolality and hyponatremia [E87.1] 09/29/2018 10/09/2018 Acute deep vein thrombosis (DVT) of popliteal v*09/30/2018 10/09/2018 Coronary artery disease involving point hope ira cruz*01/07/2019 Cardiomyopathy, ischemic [I25.5] 01/07/2019 Bipolar disorder (HCC), manic, severe [F31.9] 08/29/2020 Noncompliance [Z91.199] 08/29/2020 Agitation [R45.1] 09/05/2020 Malnutrition of mild degree (HCC) [E44.1] 09/06/2020 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, *09/14/2020 Overweight [E66.3] 10/20/2020 Encounter Status:Closed by BELGICA REYES on 08/01/22 [facility] CNPFanny 07-29-2022 CNPN Telephone ([facility]) THAD MERCADO ([id number]) 1950 Date Time Provider Department 07/29/22 PATRICIA CAPUTO [facility] During your visit today, we recorded the following information about you: Chery Marrero LPN 07/29/2022 9:53 AM Signed Pt's daughter Marah ochoa states a mri was ordered by Dr. Horn . Wants completed at [facility] neuro dept. Requesting order and all information faxed to them. Daughter is asking if her name and number be placed on order to be one contacted to make appointment . Pt has dementia. Adriana Matias LPN 07/29/2022 10:18 AM Signed Information faxed to [facility] as requested. Adriana Matias LPN Allergies As of Date: 07/29/2022 (No Known Allergies) Date Reviewed: 07/22/2022 Reviewed by: Tyshawn Horn Jr., MD - Fully Assessed Reason for Visit: Orders [681] Prescriptions as of 07/29/2022 - apixaban (ELIQUIS) 5 mg tab(s) Take 1 tablet by mouth twice daily. - metoprolol succinate ER (TOPROL XL) 50 mg 24 hr tablet Take 1 tablet by mouth once daily. - sacubitril-valsartan (ENTRESTO) 49-51 mg tablet Take 1 tablet by mouth twice daily. - ezetimibe (ZETIA) 10 mg tablet Take 1 tablet by mouth once daily. - paliperidone palmitate (INVEGA SUSTENNA) 156 mg/mL syrg injection Inject 1 mL intramuscularly. - omeprazole (PRILOSEC) 20 mg capsule Take 1 capsule by mouth once daily. - Saw Wilmore Fruit 450 mg cap Take by mouth once daily. - dapagliflozin (FARXIGA) 10 mg tablet Take 1 tablet by mouth daily with breakfast. - digoxin (LANOXIN) 125 mcg (0.125 mg) tablet Take 1 tablet by mouth once daily. - bempedoic acid (NEXLETOL) 180 mg tablet Take 1 tablet (180 mg) by mouth daily at bedtime. - spironolactone (ALDACTONE) 25 mg tablet Take 1 tablet by mouth once daily. - acetaminophen (TYLENOL) 325 mg tablet Take 2 tablets by mouth every 6 hours as needed for pain. - nitroglycerin sublingual (NITROSTAT) 0.4 mg SL tablet Dissolve 1 tablet under the tongue as needed for Chest Pain. If no pain relief call 911. - cholecalciferol (VITAMIN D3) 5,000 unit tab Take 2,000 Units by mouth once daily. - Aspirin 81 mg ORAL Tab Take one(1) tablet daily. Facility-Administered Medications as of 07/29/2022 - sodium chloride 0.9 % (flush) 10 mL (BD POSIFLUSH) Problem List As Of Date 07/29/2022 Noted Resolved PURE HYPERCHOLESTEROLEM [E78.00] 03/24/2008 LYMPHOMAS NEC HEAD [C85.81] 03/24/2008 LOSS OF WEIGHT [R63.4] 03/24/2008 CARDIOMYOPATH IN OTHER DIS [I43] 03/24/2008 MALAISE AND FATIGUE NEC [R53.81, R53.83] 03/24/2008 OBSESSIVE-COMPULSIVE DIS [F42.9] 03/24/2008 BIPOLAR DISORDER NOS [F31.9] 03/24/2008 IMPOTENCE, ORGANIC ORIGN [N52.9] 03/24/2008 ESOPHAGEAL REFLUX [K21.9] 03/24/2008 PANIC DISORDER WITHOUT AGORAPHOBIA [F41.0] 03/24/2008 Tobacco use disorder [F17.200] 03/24/2008 PVD (peripheral vascular disease) (HCC) [I73.9] 03/24/2008 CONSTIPATION NOS [K59.00] 03/24/2008 BACKACHE NOS [M54.9] 03/24/2008 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] 03/24/2008 Atherosclerosis of point hope ira artery of extremity w*03/24/2008 ALLERGIC RHINITIS NOS [J30.9] 03/24/2008 ACUTE GASTRITIS W/O HEMORRHAGE [K29.00] 09/16/2008 NAUSEA ALONE [R11.0] 09/16/2008 Acute liver failure without hepatic coma [K72.0*09/25/2018 10/09/2018 Biventricular heart failure (HCC) [I50.82] 09/26/2018 ATN (acute tubular necrosis) (HCC) [N17.0] 09/26/2018 10/09/2018 Typical atrial flutter (HCC) [I48.3] 09/26/2018 Acute on chronic systolic heart failure (HCC) [*09/26/2018 10/09/2018 Left ventricular thrombus [I51.3] 09/26/2018 Cardiogenic shock (HCC) [R57.0] 09/26/2018 10/09/2018 Coagulopathy (HCC) [D68.9] 09/28/2018 Moderate protein-calorie malnutrition (HCC) [E4*09/28/2018 Febrile [R50.9] 09/29/2018 10/09/2018 Hypo-osmolality and hyponatremia [E87.1] 09/29/2018 10/09/2018 Acute deep vein thrombosis (DVT) of popliteal v*09/30/2018 10/09/2018 Coronary artery disease involving point hope ira cruz*01/07/2019 Cardiomyopathy, ischemic [I25.5] 01/07/2019 Bipolar disorder (HCC), manic, severe [F31.9] 08/29/2020 Noncompliance [Z91.199] 08/29/2020 Agitation [R45.1] 09/05/2020 Malnutrition of mild degree (HCC) [E44.1] 09/06/2020 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, *09/14/2020 Overweight [E66.3] 10/20/2020 Encounter Status:Closed by ADRIANA MATIAS on 07/29/22 [facility] CNOVon 07-22-2022 CNOV Office Visit (NEMOWS ) THAD MERCADO ([id number]) 1950 M Date Time Provider Department 07/22/22 3:40 PM TYSHAWN HORN JR During your visit today, we recorded the following information about you: Temperature Pulse Respiration Blood pressure 97.8 degrees 82/minute 20/minute 100/67 Weight 79.2 kg Tyshawn Horn MD 07/22/2022 6:07 PM Addendum NEW PATIENT (CONSULT) HISTORY AND PHYSICAL EXAM PRIMARY CARE PHYSICIAN: Patricia Caputo MD REASON FOR CONSULT: Dementia REFERRING PHYSICIAN: No ref. provider found CHIEF COMPLAINT: Possible dementia Consultation requested by No ref. provider found for an opinion regarding chief complaint of Patient presents with: New Patient Evaluation and my final recommendations will be communicated back to the requesting physician by way of shared medical record or letter via US mail. HISTORY OF PRESENT ILLNESS: Thad Mercado is a 72 year old male, BMI 21.82 kg/m2 with a PMH significant for that below. Currently at [facility]. Presents today due to a reported low score on the SLUMS test at [facility]. Pt immediately with pressured speech and [...] repeat: 2/2 Sentence repeat: 2/2 Similar objects: 1/ Serial 7s: 199-25-21-79-72-65-58 06/07 Delayed recall: 06/09 Clock drawing: Does [...] lesions, rash, and itching. PSYCHIATRIC: See HPI. HEMATOLOGIC/LYMPHATIC/I MMUNOLOGIC:Negative for prolonged bleeding, bruising easily or swollen [...] (L) Potassium (mmol/L) Date Value 04/16/2022 4.6 Chl (more content not included)... Normal [facility] T4 Free SerPl-mCncon 023 Free T4 [Mass/Vol] 1.5 ng/dL Normal 0.9-1.7 [facility] Comment on above: Order Comment: Speci men Type: BLOOD SPECIMENOrdering Facility: [facility] Address: [address] [place] [id number] Performed By: #### 2 132-9, 3016-3, 3024-7 ####[facility] LABCLIA [id number] [place] [address] [place] TSH SerPl-aCncon 07-22-2022 TSH Qn 0.998 m[IU]/L Normal 0.270-4.200 [facility] Comment on above: Order Comment: Speci men Type: BLOOD SPECIMENOrdering Facility: [facility] Address: [address] [place] [address], [place] [address] Performed By: #### 2 132-9, 3016-3, 3024-7 ####[facility] LABIA [id number] [address] [facility] Vit B12 SerPl-ncon 04-17-2 023 Cobalamin (Vitamin B12) [Mass/Vol] 581 pg/mL Normal 232-1245 [facility] Comment on above: Order Comment: Speci men Type: BLOOD SPECIMENOrdering Facility: [facility] Address: [place] [address] Performed By: #### 2 132-9, 3016-3, 3024-7 ####[facility] LABCLIA [id number] [address] CNPFanny 06-20-2022 LEANNN Telephone (AMARA) THAD MERCADO ([id number]) 1950 Date Time Provider Department 06/20/22 TYSHAWN HORN JR During your visit today, we recorded the following information about you: Talia Jameson 06/20/2022 9:33 AM Signed Patient's guardian, Damion, called to request an appointment with neurology in [place]. The patient is currently under the care of a snf. [email or web address] performed a slums testing resulting in a low score. It was suggested to the family to have the patient be evaluated by a neurologist for dementia. Patient is scheduled to be seen on 07/29/22. Please notify the family if there is an additional intake procedures with the [facility] brain health department per the scheduling decision tree. 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 Patient had SLUMS test in which he received a 16. PCP from snf (Heraclio Garcia) recommending a brain scan. Will request SLUMS results prior to appointment. Akosua Cleveland LPN Allergies As of Date: 06/20/2022 (No Known Allergies) Date Reviewed: 04/16/2022 Reviewed by: Pastora Ang Ma - Fully Assessed Reason for Visit: Appointment [186] Prescriptions as of 06/20/2022 - metoprolol succinate ER (TOPROL XL) 50 mg 24 hr tablet Take 1 tablet by mouth once daily. - sacubitril-valsartan (ENTRESTO) 49-51 mg tablet Take 1 tablet by mouth twice daily. - ezetimibe (ZETIA) 10 mg tablet Take 1 tablet by mouth once daily. - paliperidone palmitate (INVEGA SUSTENNA) 156 mg/mL syrg injection Inject 1 mL intramuscularly. - omeprazole (PRILOSEC) 20 mg capsule Take 1 capsule by mouth once daily. - Saw Wilmore Fruit 450 mg cap Take by mouth once daily. - dapagliflozin (FARXIGA) 10 mg tablet Take 1 tablet by mouth daily with breakfast. - digoxin (LANOXIN) 125 mcg (0.125 mg) tablet Take 1 tablet by mouth once daily. - bempedoic acid (NEXLETOL) 180 mg tablet Take 1 tablet (180 mg) by mouth daily at bedtime. - spironolactone (ALDACTONE) 25 mg tablet Take 1 tablet by mouth once daily. - apixaban (ELIQUIS) 5 mg tab(s) Take 1 tablet by mouth twice daily. - acetaminophen (TYLENOL) 325 mg tablet Take 2 tablets by mouth every 6 hours as needed for pain. - nitroglycerin sublingual (NITROSTAT) 0.4 mg SL tablet Dissolve 1 tablet under the tongue as needed for Chest Pain. If no pain relief call 911. - cholecalciferol (VITAMIN D3) 5,000 unit tab Take 2,000 Units by mouth once daily. - Aspirin 81 mg ORAL Tab Take one(1) tablet daily. 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.9] 03/24/2008 ESOPHAGEAL REFLUX [K21.9] 03/24/2008 PANIC DISORDER WITHOUT AGORAPHOBIA [F41.0] 03/24/2008 Tobacco use disorder [F17.200] 03/24/2008 PVD (peripheral vascular disease) (HCC) [I73.9] 03/24/2008 CONSTIPATION NOS [K59.00] 03/24/2008 BACKACHE NOS [M54.9] 03/24/2008 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] 03/24/2008 Atherosclerosis of point hope ira artery of extremity w*03/24/2008 ALLERGIC RHINITIS NOS [J30.9] 03/24/2008 ACUTE GASTRITIS W/O HEMORRHAGE [K29.00] 09/16/2008 NAUSEA ALONE [R11.0] 09/16/2008 Acute liver failure without hepatic coma [K72.0*09/25/2018 10/09/2018 Biventricular heart failure (HCC) [I50.82] 09/26/2018 ATN (acute tubular necrosis) (HCC) [N17.0] 09/26/2018 10/09/2018 Typical atrial flutter (HCC) [I48.3] 09/26/2018 Acute on chronic systolic heart failure (HCC) [*09/26/2018 10/09/2018 Left ventricular thrombus [I51.3] 09/26/2018 Cardiogenic shock (HCC) [R57.0] 09/26/2018 10/09/2018 Coagulopathy (HCC) [D68.9] 09/28/2018 Moderate protein-calorie malnutrition (HCC) [E4*09/28/2018 Febrile [R50.9] 09/29/2018 10/09/2018 Hypo-osmolality and hyponatremia [E87.1] 09/29/2018 10/09/2018 Acute deep vein thrombosis (DVT) of popliteal v*09/30/2018 10/09/2018 Coronary artery disease involving point hope ira cruz*01/07/2019 Cardiomyopathy, ischemic [I25.5] 01/07/2019 Bipolar disorder (HCC), manic, severe [F31.9] 08/29/2020 Noncompliance [Z91.199] 08/29/2020 Agitation [R45.1] 09/05/2020 Malnutrition of mild degree (HCC) [E44.1] 09/06/2020 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, *09/14/2020 Overweight [E66.3] 10/20/2020 (more content not included)... Normal [facility] CNPNon 06-06-2022 CNPN Telephone (CARD CHF SYED) THAD MERCADO ([id number]) 1950 M Date Time Provider Department 06/06/22 MARIANELA BLANC CARD CHF SYED During your visit today, we recorded the following information about you: Madelaine Casas Adm 06/06/2022 12:05 PM Signed Received call from pt daughter who reports pt has moved and is now living @ [facility]. Marah reports pt is having a dementia eval and she feels [facility] may need to be his permanent residence but will wait on Eval results. Marah requests this information is kept private as they have not discussed with pt. Marah is requesting Lab results are forwarded to [facility] at [phone] Fax [facility] Marah reports she and her sister are medical POA for pt. She will update address info via [facility]. Marah would like a call back re: dosing for Metoprolol and Entresto. Pt is still struggling w/ low BP. Marah can be reached at [phone] She feels a call will be needed to [facility] with update in medication. Thank you Madelaine Johnson RN 06/07/2022 3:46 PM Signed MD Madelaine Diallo Adm; [facility]4 Opd Nurses; Terra Lugo 3 hours [...] have specific blood pressures. Did call the snf and spoke to the nurse of the patient spoke to the nurse, Bps without the metoprolol and low dose entresto, Today: 132/83 HR 73 Yesterday: 121/80 pt does have dizziness when BP is below 115 systolic and continues to refuse the metoprolol Reema Johnson RN June 07, 2022 3:46 PM Reema Johnson RN 06/10/2022 9:44 AM Signed Marianela Blanc MD You 3 days ago Thanks for calling! I would continue current medications. Can split metoprolol into 1/2 and take BID. Viktor Called and spoke to Nurse at [facility], Gave her the above information, she verbalized understanding. Reema Johnson RN June 10, 2022 9:42 AM Allergies As of Date: 06/06/2022 (No Known Allergies) Date Reviewed: 04/16/2022 Reviewed by: Pastora Ang Ma - Fully Assessed Reason for Visit: Patient Update [1234] Prescriptions as of 06/10/2022 - metoprolol succinate ER (TOPROL XL) 50 mg 24 hr tablet Take 1 tablet by mouth once daily. - sacubitril-valsartan (ENTRESTO) 49-51 mg tablet Take 1 tablet by mouth twice daily. - ezetimibe (ZETIA) 10 mg tablet Take 1 tablet by mouth once daily. - paliperidone palmitate (INVEGA SUSTENNA) 156 mg/mL syrg injection Inject 1 mL intramuscularly. - omeprazole (PRILOSEC) 20 mg capsule Take 1 capsule by mouth once daily. - Saw Wilmore Fruit 450 mg cap Take by mouth once daily. - dapagliflozin (FARXIGA) 10 mg tablet Take 1 tablet by mouth daily with breakfast. - digoxin (LANOXIN) 125 mcg (0.125 mg) tablet Take 1 tablet by mouth once daily. - bempedoic acid (NEXLETOL) 180 mg tablet Take 1 tablet (180 mg) by mouth daily at bedtime. - spironolactone (ALDACTONE) 25 mg tablet Take 1 tablet by mouth once daily. - apixaban (ELIQUIS) 5 mg tab(s) Take 1 tablet by mouth twice daily. - acetaminophen (TYLENOL) 325 mg tablet Take 2 tablets by mouth every 6 hours as needed for pain. - nitroglycerin sublingual (NITROSTAT) 0.4 mg SL tablet Dissolve 1 tablet under the tongue as needed for Chest Pain. If no pain relief call 911. - cholecalciferol (VITAMIN D3) 5,000 unit tab Take 2,000 Units by mouth once daily. - Aspirin 81 mg ORAL Tab Take one(1) tablet daily. Facility-Administered Medications as of 06/10/2022 - sodium chloride 0.9 % (flush) 10 mL (BD POSIFLUSH) Problem List As Of Date 06/06/2022 Noted Resolved PURE HYPERCHOLESTEROLEM [E78.00] 03/24/2008 LYMPHOMAS NEC HEAD [C85.81] 03/24/2008 LOSS OF WEIGHT [R63.4] 03/24/2008 CARDIOMYOPATH IN OTHER DIS [I43] 03/24/2008 MALAISE AND FATIGUE NEC [R53.81, R53.83] 03/24/2008 OBSESSIVE-COMPULSIVE DIS [F42.9] 03/24/2008 BIPOLAR DISORDER NOS [F31.9] 03/24/2008 IMPOTENCE, ORGANIC ORIGN [N52.9] 03/24/2008 ESOPHAGEAL REFLUX [K21.9] 03/24/2008 PANIC DISORDER WITHOUT AGORAPHOBIA [F41.0] 03/24/2008 Tobacco use disorder [F17.200] 03/24/2008 PVD (peripheral vascular disease) ([facility]) [I73.9] 03/24/2008 CONSTIPATION NOS [K59.00] 03/24/2008 BACKACHE NOS [M54.9] 03/24/2008 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] 03/24/2008 Atherosclerosis of point hope ira artery of extremity w*03/24/2008 ALLERGIC RHINITIS NOS [J30.9] 03/24/2008 ACUTE GASTRITIS W/O HEMORRHAGE [K29.00] 09/16/2008 NAUSEA ALONE [R11.0] 09/16/2008 Acute liver failure without hepatic coma [K72.0* (more content not included)... Normal [facility] CNPNon 05-13-2022 CNPN Telephone (HVI) THAD EMRCADO ([id number]) 1950 Date Time Provider Department 05/13/22 MARIANELA BLANC HVI During your visit today, we recorded the following information about you: Terra Lugo 05/13/2022 9:31 AM Signed Patient has been identified by name and date of : Yes Reason for call: Symptoms: Patients daughter called stated that he's been dizzy,light headed and low bp. And is wondering if his medication needs to be changed. 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 The [...] 2022 12:50 PM After speaking with Dr. Blanc: He can hold entresto for 24 hours and then restart with 1/2 tablet twice a day if his blood pressure have come up. He should seek evaluation in the ED if his chest pain returns. Called patient's daughter and provided above information. Marah verbalizes understanding and is going to call the assisted living facility. Deidra Miner RN May 13, 2022 1:41 PM Deidra Miner RN 05/13/2022 3:44 PM Signed Javid Ang [facility] You; Hanane Acuña [facility] 10 minutes ago (3:29 PM) No interaction that I can see which would affect the efficacy of Invega. Possible attenuation of the hyperglycemic risk associated with Invega when using SGLT2 inhibitors, but that would be a good thing and wouldn't reduce the effectiveness of Invega. Called patient and provided above information. Patient verbalizes understanding. Deidra Miner RN May 13, 2022 3:43 PM Allergies As of Date: 05/13/2022 (No Known Allergies) Date Reviewed: 04/16/2022 Reviewed by: Pastora Ang Ma - Fully Assessed Reason for Visit: Patient Question [5537] Prescriptions as of 05/13/2022 - metoprolol succinate ER (TOPROL XL) 50 mg 24 hr tablet Take 1 tablet by mouth once daily. - sacubitril-valsartan (ENTRESTO) 49-51 mg tablet Take 1 tablet by mouth twice daily. - ezetimibe (ZETIA) 10 mg tablet Take 1 tablet by mouth once daily. - paliperidone palmitate (INVEGA SUSTENNA) 156 mg/mL syrg injection Inject 1 mL intramuscularly. - omeprazole (PRILOSEC) 20 mg capsule Take 1 capsule by mouth once daily. - Saw Wilmore Fruit 450 mg cap Take by mouth once daily. - dapagliflozin (FARXIGA) 10 mg tablet Take 1 tablet by mouth daily with breakfast. - digoxin (LANOXIN) 125 mcg (0.125 mg) tablet Take 1 tablet by mouth once daily. - bempedoic acid (NEXLETOL) 180 mg tablet Take 1 tablet (180 mg) by mouth daily at bedtime. - spironolactone (ALDACTONE) 25 mg tablet Take 1 tablet by mouth once daily. - apixaban (ELIQUIS) 5 mg tab(s) Take 1 tablet by mouth twice daily. - acetaminophen (TYLENOL) 325 mg tablet Take 2 tablets by mouth every 6 hours as needed for pain. - nitroglycerin sublingual (NITROSTAT) 0.4 mg SL tablet Dissolve 1 tablet under the tongue as needed for Chest Pain. If no pain relief call 911. - cholecalciferol (VITAMIN D3) 5,000 unit tab Take 2,000 Units by mouth once daily. - Aspirin 81 mg ORAL Tab Take one(1) tablet daily. Facility-Administered Medications as of 05/13/2022 - sodium chloride 0.9 % (flush) 10 mL (BD POSIFLUSH) - perflutren lipid microspheres 1.3 mL in NaCl (PF) 0.9% 10 mL injection (DEFINITY) - sodium chloride 0.9 % (flush) 10 mL (BD POSIFLUSH) Problem List As Of Date 05/13/2022 Noted Resolved PURE HYPERCHOLESTEROLEM [E78.00] 03/24/2008 LYMPHOMAS NEC HEAD [C85.81] 03/24/2008 LOSS OF WEIGHT [R63.4] 03/24/2008 CARDIOMYOPATH IN OTHER DIS [I43] 03/24/2008 MALAISE AND FATIGUE NEC [R53.81, R53.83] 03/24/2008 OBSESSIVE-COMPULSIVE DIS [F42.9] 03/24/2008 BIPOLAR DISORDER NOS [F31.9] 03/24/2008 IMPOTENCE, ORGANIC ORIGN [N52.9] 03/24/2008 ESOPHAGEAL REFLUX [K21.9] 03/24/2008 PANIC DISORDER WITHOUT AGORAPHOBIA [F41.0] 03/24/2008 Tobacco use disorder [F17.200] 03/24/2008 PVD (peripheral vascular disease) (HCC) [I73.9] 03/24/2008 CONSTIPATION NOS [K59.00] 03/24/2008 BACKACHE NOS [M54.9] 03/24/2008 N (more content not included)... Normal [facility] Basic metabolic 2000 panelon 04-16-2022 Anion gap [Moles/Vol] 12 mmol/L Normal -18 [facility] Comment on above: Order Comment: Speci men Type: BLOOD SPECIMENOrdering Facility: [facility] Address: [address] [place] [address] Performed By: #### 2 4331-1, 14101-0, 35266-6 ####[facility] LABCLIA [id number] [place] [address] [place] Calcium [Mass/Vol] 9.9 mg/dL Normal 8.5-10.2 [facility] Comment on above: Order Comment: Speci men Type: BLOOD SPECIMENOrdering Facility: [facility] Address: [address] [place] [address] Performed By: #### 2 4331-1, 29753-8, 93066-9 ####[facility] LABCLIA [id number] [place] [address] [place] Chloride [Moles/Vol] 101 mmol/L Normal 97-105 [facility] Comment on above: Order Comment: Speci men Type: BLOOD SPECIMENOrdering Facility: [facility] Address: [address] [place] [address] Performed By: #### 2 4331-1, 82758-6, 85342-6 ####[facility] LABCLIA [id number] [place] [address] [place] CO2 [Moles/Vol] 22 mmol/L Normal 22-30 [facility] Comment on above: Order Comment: Speci men Type: BLOOD SPECIMENOrdering Facility: [facility] Address: [address] [address] Performed By: #### 2 4331-1, 34263-0, 35226-6 ####[facility] LABCLIA [id number] [address] [facility] Creatinine [Mass/Vol] 0.87 mg/dL Normal 0.73-1.22 [facility] Comment on above: Order Comment: Tom caraballo Type: BLOOD SPECIMENOrdering Facility: [facility] Address: [address] [address] Performed By: #### 2 4331-1, 39136-6, 89650-7 ####[facility] LABCLIA [id number] [address] [place] ESTIMATED GLOMERULAR FILTRATION RATE 93 mL/min/1.73m??? Normal >=60 [facility] Comment on above: Order Comment: Tom caraballo Type: BLOOD SPECIMENOrdering Facility: [facility] Address: [address] [address] Result Comment: Jennifer mated Glomerular Filtration Rate (eGFR) is calculated using the 2020 CKD-EPI creatinine equation. This equation utilizes serum creatinine, sex, and age as parameters. The creatinine assay has traceable calibration to isotope dilution-mass spectrometry. Refer to KDIGO guidelines for clinical interpretation. In patients with unstable renal function, e.g. those with acute kidney injury, the eGFR may not accurately reflect actual GFR. Performed By: #### 2 4331-1, 78453-1, 38889-9 ####[facility] LABCLIA [id number] [place] [address] [place] Glucose [Mass/Vol] 85 mg/dL Normal 74-99 [facility] Comment on above: Order Comment: Tom carbaallo Type: BLOOD SPECIMENOrdering Facility: [facility] Address: [address] [address] Result Comment: The [place] Diabetes Association (ADA) provides guidance for cutoff values for fasting glucose and random glucose. The ADA defines fasting as no caloric intake for at least 8 hours. Fasting plasma glucose results between 100 to 125 mg/dL indicate increased risk for diabetes (prediabetes). Fasting plasma glucose results greater than or equal to 126 mg/dL meet the criteria for diagnosis of diabetes. In the absence of unequivocal hyperglycemia, results should be confirmed by repeat testing. In a patient with classic symptoms of hyperglycemia or hyperglycemic crisis, random plasma glucose results greater than or equal to 200 mg/dL meet the criteria for diagnosis of diabetes. Reference: Standards of Medical Care in Diabetes 2016, [place] Diabetes Association. Diabetes Care. 2016.39(Suppl 1). Performed By: #### 2 4331-1, 33216-8, 02175-6 ####[facility] LABCLIA [id number] [place] [address] [place] Potassium [Moles/Vol] 4.6 mmol/L Normal 3.7-5.1 [facility] Comment on above: Order Comment: Speci men Type: BLOOD SPECIMENOrdering Facility: [facility] Address: [address] [address] Performed By: #### 2 4331-1, 10853-0, 45249-3 ####[facility] LABCLIA [id number] [place] [address] [place] Sodium [Moles/Vol] 135 mmol/L Low 136-144 [facility] Comment on above: Order Comment: Speci men Type: BLOOD SPECIMENOrdering Facility: [facility] Address: [address] [address] Performed By: #### 2 4331-1, 26898-3, 77173-8 ####[facility] LABCLIA [id number] [place] [address] [place] Urea nitrogen [Mass/Vol] 16 mg/dL Normal 9-24 [facility] Comment on above: Order Comment: Speci men Type: BLOOD SPECIMENOrdering Facility: [facility] Address: [address] [address] Performed By: #### 2 4331-1, 64585-0, 10450-0 ####[facility] LABCLIA [id number] [place] [id number] [place] CBC panel Auto (Bld)on 04-16 Erythrocyte distribution width (RBC) [Ratio] 12.2 % Normal 11.5-15.0 [facility] Comment on above: Order Comment: Speci men Type: BLOOD SPECIMENOrdering Facility: [facility] Address: [address] [place] [address] Performed By: #### 5 8410-2 ####[facility] LABCLIA [id number] [address] [place] [facility] Hematocrit (Bld) [Volume fraction] 43.3 % Normal 39.0-51.0 [facility] Comment on above: Order Comment: Speci men Type: BLOOD SPECIMENOrdering Facility: [facility] Address: [address] [place] [address] Performed By: #### 5 8410-2 ####[facility] LABIA [id number] [address] [place] Hemoglobin (Bld) [Mass/Vol] 14.7 g/dL Normal 13.0-17.0 [facility] Comment on above: Order Comment: Speci men Type: BLOOD SPECIMENOrdering Facility: [facility] Address: [address] [place], [place] [address] Performed By: #### 5 8410-2 ####[facility] LABIA [id number] [address] [place] MCH (RBC) [Entitic mass] 30.9 pg Normal 26.0-34.0 [facility] Comment on above: Order Comment: Speci men Type: BLOOD SPECIMENOrdering Facility: [facility] Address: [address] [place], [place] [address] Performed By: #### 5 8410-2 ####[facility] LABCLIA [id number] [address] STATES [place] [place] MCHC (RBC) [Mass/Vol] 33.9 g/dL Normal 30.5-36.0 [facility] Comment on above: Order Comment: Speci men Type: BLOOD SPECIMENOrdering Facility: [facility] Address: [facility] [place] [address] Performed By: #### 5 8410-2 ####[facility] LABCLIA [id number] [address] MCV (RBC) [Entitic vol] 91.0 fL Normal 80.0-100.0 [facility] Comment on above: Order Comment: Speci men Type: BLOOD SPECIMENOrdering Facility: [facility] Address: [address] Performed By: #### 5 8410-2 ####[facility] LABCLIA [id number] [place] [address] [place] Nucleated RBC (Bld) [#/Vol] 10*3/uL Normal <0.01 [facility] Comment on above: Order Comment: Speci men Type: BLOOD SPECIMENOrdering Facility: [facility] Address: [address] Performed By: #### 5 8410-2 ####[facility] LABIA [id number] [place] [address] [place] Platelet mean volume (Bld) [Entitic vol] 10.3 fL Normal 9.0-12.7 [facility] Comment on above: Order Comment: Speci men Type: BLOOD SPECIMENOrdering Facility: [facility] Address: [address] [place] [address] Performed By: #### 5 8410-2 ####[facility] LABCLIA [id number] [place] [address] [place] Platelets (Bld) [#/Vol] 212 10*3/uL Normal 150-400 [facility] Comment on above: Order Comment: Speci men Type: BLOOD SPECIMENOrdering Facility: [facility] Address: [address] [place] [address] Performed By: #### 5 8410-2 ####[facility] LABCLIA [id number] [place] [address] [place] RBC (Bld) [#/Vol] 4.76 10*6/uL Normal 4.20-6.[address] [facility] Comment on above: Order Comment: Speci men Type: BLOOD SPECIMENOrdering Facility: [facility] Address: [address] [place] [address] Performed By: #### 5 8410-2 ####[facility] LABIA [id number] [address] WBC (Bld) [#/Vol] 9.13 10*3/uL Normal 3.70-11.[address] [facility] Comment on above: Order Comment: Speci men Type: BLOOD SPECIMENOrdering Facility: [facility] Address: [address] [place] [address] Performed By: #### 5 8410-2 ####[facility] [id number] [address] [facility] CNOVon 04-16-2022 CNOV Office Visit (CECILIA OSEI MAI) THAD MERCADO ([id number]) 1950 M Date Time Provider Department 04/16/22 1:15 PM MARIANELA BLANC MAI During your visit today, we recorded the following information about you: Pulse Blood pressure Weight Height 74/minute 146/76 82.5 kg 1.905 m Marianela Blanc MD 04/16/2022 9:21 PM Signed [facility] [place] [facility] SECTION OF HEART FAILURE and CARDIAC TRANSPLANT MEDICINE OUTPATIENT VISIT DATE April 16, 2022 OUTPATIENT VISIT TYPE Established Patient PRIMARY CARE PHYSICIAN: MD Narcisa DamonWJaky [facility] [address] [place] [address] CHIEF COMPLAINT: Follow-up HISTORY OF PRESENT ILLNESS: Thad Mercado is a 72 year old male [...] for psychiatric reasons and now lives at [facility]. At the snf, he is provided with medications. HF Nursing [...] Allergic rhinitis, cause 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 Atherosclerosis of [place] arteries of the extremities with intermittent claudication 03/24/2008 left Backache, 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 Bipolar affective disorder, currently manic, moderate ([facility]) 2010 hospitalized at [facility] 04/06/2010-04/27/2010 Bipolar disorder, unspecified ([facility]) 03/24/2008 Cardiomyopathy in other diseases classified elsewhere 03/24/2008 COPD (chronic obstructive pulmonary disease) ([facility]) Esophageal reflux 03/24/2008 Hx of CABG 2006 Impotence of organic origin 03/24/2008 Ischemic cardiomyopathy 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[facility]) Loss of weight 03/24/2008 Loss of weight Lymphoma in remission ([facility]) chemo and radiation Nausea alone Nonorganic sleep disorder, 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 NSTEMI (non-ST elevated myocardial infarction) ([facility]) s/p 3 stents 2014 Obsessive-compulsive disorders 03/24/2008 OCD (obsessive compulsive disorder) Other malaise and fatigue 03/24/2008 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, face, and neck 03/24/2008 PAD (peripheral artery disease) (HCC) s/p right iliac stent 2006 Panic disorder without agoraphobia 03/24/2008 Peripheral vascular disease, unspecified (HCC) 03/24/2008 Pure hypercholesterolemia 03/24/2008 Tobacco use disorder 03/24/2008 Unspecified constipation PAST SURGICAL HISTORY Procedure Laterality Date COLONOSCOPY FLX DX W/COLLJ SPEC WHEN PFRMD 09/16/08 CORONARY ARTERY BYPASS 5 CORONARY VENOUS GRAFTS 01/11 [facility] EGD TRANSORAL BIOPSY SINGLE/MULTIPLE 09/16/08 ESOPHAGOGASTRODUODENOSC OPY TRANSORAL DIAGNOSTIC 1988 [facility] EGD PAST SURGICAL HISTORY OF nasal [...] capsule by mouth once daily.Disp: Rfl: Saw Wilmore Fruit 450 mg capTake by mouth once daily.Disp: Rfl: dapagliflozin (FARXIGA) 10 mg tabletTake 1 tablet by mouth daily with breakfast.Disp: 90 tabletRfl: 3 digoxin (LANOXIN) 125 mcg (0.125 mg) tabletTake 1 tablet by mouth once daily.Disp: 45 tabletRfl: 3 bempedoic acid (NEXL (more content not included)... Normal [facility] HbA1c (Bld)on 04-16-2022 Average glucose Estimated from glycated hemoglobin (Bld) [Mass/Vol] 123 mg/dL Normal [facility] Comment on above: Order Comment: Speci men Type: BLOOD SPECIMENOrdering Facility: [facility] Address: [address] [place] [id number] Result Comment: eAG: (Estimated average glucose) is a calculated value from HgbA1c and is metals sales representative of the average blood glucose level in the last 2-3 month period. Performed By: #### 5 5454-3 ####[facility] LABIA [id number] [address] [place] HbA1c (Bld) [Mass fraction] 5.9 % High 4.3-5.6 [facility] Comment on above: Order Comment: Willamcarlos caraballo Type: BLOOD SPECIMENOrdering Facility: [facility] Address: [place] [address] Result Comment: Martha ican Diabetes Association guidelines indicate that patients with HgbA1c in the range 5.7-6.4% are at increased risk for development of diabetes, and intervention by lifestyle modification may be beneficial. HgbA1c greater or equal to 6.5% is considered diagnostic of diabetes. Performed By: #### 5 5454-3 ####[facility] LABIA [id number] [place] [address] [place] ICD CLINIC CHECKon 3 AV Delay Adaptive Paced Minimum (ms) 180 ms [facility] AV Delay Adaptive Sensed Minimum (ms) 150 ms [facility] AV Delay Adaptive Status DISABLED [facility] Battery Voltage 2.99 V [facility] Antonio RA Pacing Amplitude (volts) 1.5 V [facility] Antonio RA Pacing Polarity BI [facility] Antonio RA Pacing Pulse Width (ms) 0.4 ms [facility] Antonio RA Sensing Amplitude (mvolts) 0.15 mV [facility] Antonio RA Sensing Blanking Period (ms) 150 ms [facility] Antonio RA Sensing Polarity BI [facility] Antonio RA Sensing Refractory Period (ms) Auto [facility] Antonio RV Pacing Amplitude (volts) 2 V [facility] Antonio RV Pacing Polarity BI [facility] Antonio RV Pacing Pulse Width (ms) 0.4 ms [facility] Antonio RV Sensing Amplitude (mvolts) 0.3 mV [facility] Antonio RV Sensing Blanking Period (ms) 200 ms [facility] Antonio RV Sensing Polarity BI [facility] Detection Configuration (Vent) 2 - Zone [facility] FastVT_Detection Interval 320 ms [facility] FastVT_Therapy Configuration 1 ATP(s) + 6 Shock(s) [facility] ICD ATAF DetectionInterval ms 350 ms [facility] ICD ATAF DetectionStatus ENABLED [facility] ICD FastVT DetectionStatus ENABLED [facility] ICD-ADLRATE_BPM 95 {beats}/min [facility] ICD-AMS EPISODES 171 {beats}/min [facility] ICD-ATP Episodes (Vent) 0 [facility] ICD-ATRIALFIBRILLATI ON 0 [facility] ICD-Counters Cleared Date 04/05/2019 [facility] ICD-Device Mfg MDT [facility] ICD-Fast Ventricular Tachycardia 1 [facility] ICD-Hysteresis Rate DISABLED [facility] ICD-LEADIMPEDANCEATR IAL 513 ohm [facility] ICD-Percent Pacing (Atrial) 12.61 % [facility] ICD-Percent Pacing (Vent) 0.04 % [facility] ICD-PMT Intervention DISABLED [facility] ICD-PVC Intervention ENABLED [facility] ICD-Rate Modulation Acceleration Reaction 30 s [facility] ICD-Rate Modulation Deceleration Exercise [facility] ICD-Rate Modulation Grand 3 [facility] ICD-Rate Modulation Threshold MediumLow [facility] ICD-Rhythm Normal Sinus Rhythm [facility] ICD-Shocks Aborted (Vent) 0 [facility] DEP-[id number] 0 [facility] ICD-SHOCKSABORTED [address] [facility] ICD-SHOCKSDELIVEREDV ENTRICULAR 0 [facility] ICD-Ventricular Fibrillation 0 [facility] Lead Impedance (RV) 475 ohm [facility] Lead Impedance High Voltage 86 ohm [facility] Lead1 Mfg MDT [facility] Lead2 Mfg MDT [facility] Location RA [facility] Location RV [facility] Lower Rate (bpm) 60 {beats}/min [facility] Max Sensor Rate (bpm) 130 {beats}/min [facility] MDT_PROG_TACHY_ZONE_ DETECTIONS_STATUS ENABLED [facility] Model [id number] [facility] XT DR [place] Model 5076 CapSureFix [facility] Model [id number] Sprint Quattro Secure S [facility] Pacemaker Dependent? NO [facility] Serial Number [id number] [facility] Serial Number [id number] [facility] Serial Number [id number] [facility] Test Charge Energy 18 J [facility] Test Charge Time 3.[address] [facility] Therapy Status (Vent) Enabled [facility] Thresh RA Capture Amplitude (volts) 0.375 V [facility] Thresh RA Capture Duration (ms) 0.4 ms [facility] Thresh RA Sensing Amplitude (mvolts) 3.25 mV [facility] Thresh RV Capture Amplitude (VOLTS) 0.625 V [facility] Thresh RV Capture Duration (MS) 0.4 ms [facility] Thresh RV Sensing Amplitude (MVOLTS) 6.125 mV [facility] Tracking Rate (bpm) 130 {beats}/min [facility] VF Zone Detection Interval 320 ms [facility] VF Zone Therapy Configuration 1 ATP(s) + 6 Shock(s) [facility] Lipid 1996 panelon 3 Cholesterol [Mass/Vol] 154 mg/dL Normal <200 [facility] Comment on above: Order Comment: Speci men Type: BLOOD SPECIMENOrdering Facility: [facility] Address: [address] [place] [address] Result Comment: <200 mg/dL, Desirable 200-239 mg/dL, Borderline high >239 mg/dL, High Performed By: #### 2 4331-1, 58283-1, 43548-6 ####[facility] LABCLIA [id number] [place] [address] [place] Cholesterol in HDL [Mass/Vol] 35 mg/dL Low >39 [facility] Comment on above: Order Comment: Willami rashmi Type: BLOOD SPECIMENOrdering Facility: [facility] Address: [address] [place] [id number] Result Comment: 40-5 9 mg/dL, Acceptable >59 mg/dL, High: Negative risk factor for coronary heart disease <40 mg/dL, Low: Positive risk factor for coronary heart disease Performed By: #### 2 4331-1, 56889-3, 41075-0 ####[facility] LABCLIA [id number] [place] [address] [place] Cholesterol in LDL [Mass/Vol] 100 mg/dL High <100 [facility] Comment on above: Order Comment: Speci men Type: BLOOD SPECIMENOrdering Facility: [facility] Address: [address] [place] [address] Result Comment: <100 mg/dL, Optimal 100-129 mg/dL, Near optimal/above optimal 130-159 mg/dL, Borderline high 160-189 mg/dL, High >189 mg/dL, Very high Secondary prevention optimal LDL Cholesterol levels are recommended to be < 70 mg/dL Performed By: #### 2 4331-1, 27916-3, 76145-2 ####[facility] LABCLIA [id number] [address] Cholesterol in LDL/Cholesterol in HDL [Mass ratio] 2.86 {ratio} High <2.54 [facility] Comment on above: Order Comment: Speci men Type: BLOOD SPECIMENOrdering Facility: [facility] Address: [address] [place] [address] Result Comment: Refe rence: 1. National Cholesterol Education Program ATP III Guideline At-A-Glance Quick Desk Reference: National Heart, Lung, and [facility] [place]. National Institutes of Health. 2001: NIH Publication No. 01-3305. 2. An International Atherosclerosis Society position paper: global recommendations for the management of dyslipidemia: executive summary, Atherosclerosis. 2014: 232(2):410-413. Performed By: #### 2 4331-1, 11439-3, 41833-3 ####[facility] LABCLIA [id number] [address] [place] Cholesterol in VLDL [Mass/Vol] 19 mg/dL Normal <30 [facility] Comment on above: Order Comment: Willami men Type: BLOOD SPECIMENOrdering Facility: [facility] Address: [address] [place] [address] Performed By: #### 2 4331-1, 43819-1, 01206-4 ####[facility] LABCLIA [id number] [address] [place] Cholesterol non HDL [Mass/Vol] 119 mg/dL Normal <130 [facility] Comment on above: Order Comment: Speci men Type: BLOOD SPECIMENOrdering Facility: [facility] Address: [address] [place] [address] Result Comment: <130 mg/dL, Optimal 130-159 mg/dL, Near optimal/above optimal 160-189 mg/dL, Borderline high 190-219 mg/dL, High >219 mg/dL, Very high Secondary prevention optimal non HDL Cholesterol levels are recommended to be <100 mg/dL Performed By: #### 2 4331-1, 13808-1, 12642-8 ####[facility] LABCLIA [id number] [address] [place] Cholesterol.total/Ch olesterol in HDL [Mass ratio] 4.40 {ratio} Normal <5.10 [facility] Comment on above: Order Comment: Speci men Type: BLOOD SPECIMENOrdering Facility: [facility] Address: [address] [place], [place] [address] Performed By: #### 2 4331-1, 44270-7, 88966-1 ####[facility] LABCLIA [id number] [address] [place] FASTING TIME 12 hrs Normal [facility] Comment on above: Order Comment: Speci men Type: BLOOD SPECIMENOrdering Facility: [facility] Address: [address] [place] [address] Performed By: #### 2 4331-1, 93106-2, 83388-5 ####[facility] LABCLIA [id number] [place] [address] [place] Triglyceride [Mass/Vol] 95 mg/dL Normal <150 [facility] Comment on above: Order Comment: Speci men Type: BLOOD SPECIMENOrdering Facility: [facility] Address: [address] [place] [address] Result Comment: <150 mg/dL, Normal 150-199 mg/dL, Borderline high 200-499 mg/dL, High >499 mg/dL, Very high Performed By: #### 2 4331-1, 71117-5, 20491-2 ####[facility] LABCLIA [id number] [place] [address] [place] NT-proBNP [facility] Natriuretic peptide.B prohormone N-Terminal [Mass/Vol] 228 pg/mL High <125 [facility] Comment on above: Order Comment: Speci men Type: BLOOD SPECIMENOrdering Facility: [facility] Address: [address] [place] [address] Performed By: #### 2 4331-1, 04802-5, 05484-7 ####[facility] LABCLIA [id number] [address] [place] No Panel Informationon 04-16 BLANK _ [facility] ICD-Fast Ventricular Tachycardia 0 [facility] Implant Date 04/05/2019 [facility] CNCOon 03-12-2022 CNCO Letter Text Normal [facility] CNPNon 01-08-2022 CNPN Telephone (CECILIA CHF SYED) THAD MERCADO ([id number]) 1950 M Date Time Provider Department 01/08/22 MARIANELA BLANC CHF SYED During your visit today, we recorded the following information about you: Johnna Gauthier RN 01/08/2022 5:41 PM Signed Called pt, no answer, left generic vm for pt (no identifiers) with office number and stating that a message would be sent to him on my chart for his lab results. Johnna Gauthier RN January 08, 2022 5:38 PM Marianela Blanc MD P Hvi J3-4 Opd Nurses Pls let patient know I will refer to prevention clinic. Will likely need PCSK9 inhibitor (injectable) given presently elevated lipids on bempdoic acid. Thanks Allergies As of Date: 01/08/2022 (No Known Allergies) Date Reviewed: 01/02/2022 Reviewed by: Shelby Man, KARLA - Fully Assessed Reason for Visit: Results [95] Prescriptions as of 01/08/2022 - paliperidone palmitate (INVEGA SUSTENNA) 156 mg/mL syrg injection Inject 1 mL intramuscularly. - omeprazole (PRILOSEC) 20 mg capsule Take 1 capsule by mouth once daily. - Saw Wilmore Fruit 450 mg cap Take by mouth once daily. - dapagliflozin (FARXIGA) 10 mg tablet Take 1 tablet by mouth daily with breakfast. - digoxin (LANOXIN) 125 mcg (0.125 mg) tablet Take 1 tablet by mouth once daily. - bempedoic acid (NEXLETOL) 180 mg tablet Take 1 tablet (180 mg) by mouth daily at bedtime. - metoprolol succinate ER (TOPROL XL) 25 mg 24 hr tablet Take 1 tablet by mouth once daily. - sacubitril-valsartan (ENTRESTO) 24-26 mg tablet Take 1 tablet by mouth twice daily. - spironolactone (ALDACTONE) 25 mg tablet Take 1 tablet by mouth once daily. - apixaban (ELIQUIS) 5 mg tab(s) Take 1 tablet by mouth twice daily. - acetaminophen (TYLENOL) 325 mg tablet Take 2 tablets by mouth every 6 hours as needed for pain. - nitroglycerin sublingual (NITROSTAT) 0.4 mg SL tablet Dissolve 1 tablet under the tongue as needed for Chest Pain. If no pain relief call 911. - cholecalciferol (VITAMIN D-3) 5,000 unit tab Take 2,000 Units by mouth once daily. - Aspirin 81 mg ORAL Tab Take one(1) tablet daily. Facility-Administered Medications as of 01/08/2022 - sodium chloride 0.9 % (flush) 10 mL (BD POSIFLUSH) - perflutren lipid microspheres 1.3 mL in NaCl (PF) 0.9% 10 mL injection (DEFINITY) - sodium chloride 0.9 % (flush) 10 mL (BD POSIFLUSH) Problem List As Of Date 01/08/2022 Noted Resolved PURE HYPERCHOLESTEROLEM [E78.00] 03/24/2008 LYMPHOMAS NEC HEAD [C85.81] 03/24/2008 LOSS OF WEIGHT [R63.4] 03/24/2008 CARDIOMYOPATH IN OTHER DIS [I43] 03/24/2008 MALAISE AND FATIGUE NEC [R53.81, R53.83] 03/24/2008 OBSESSIVE-COMPULSIVE DIS [F42.9] 03/24/2008 BIPOLAR DISORDER NOS [F31.9] 03/24/2008 IMPOTENCE, ORGANIC ORIGN [N52.9] 03/24/2008 ESOPHAGEAL REFLUX [K21.9] 03/24/2008 PANIC DISORDER WITHOUT AGORAPHOBIA [F41.0] 03/24/2008 Tobacco use disorder [F17.200] 03/24/2008 Peripheral vascular disease, unspecified (HCC) *03/24/2008 CONSTIPATION NOS [K59.00] 03/24/2008 BACKACHE NOS [M54.9] 03/24/2008 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] 03/24/2008 Atherosclerosis of point [place] artery of extremity w*03/24/2008 ALLERGIC RHINITIS NOS [J30.9] 03/24/2008 ACUTE GASTRITIS W/O HEMORRHAGE [K29.00] 09/16/2008 NAUSEA ALONE [R11.0] 09/16/2008 Acute liver failure without hepatic coma [K72.0*09/25/2018 10/09/2018 Biventricular heart failure (HCC) [I50.82] 09/26/2018 ATN (acute tubular necrosis) (HCC) [N17.0] 09/26/2018 10/09/2018 Typical atrial flutter (HCC) [I48.3] 09/26/2018 Acute on chronic systolic heart failure (HCC) [*09/26/2018 10/09/2018 Left ventricular thrombus [I51.3] 09/26/2018 Cardiogenic shock (HCC) [R57.0] 09/26/2018 10/09/2018 Coagulopathy (HCC) [D68.9] 09/28/2018 Moderate protein-calorie malnutrition (HCC) [E4*09/28/2018 Febrile [R50.9] 09/29/2018 10/09/2018 Hypo-osmolality and hyponatremia [E87.1] 09/29/2018 10/09/2018 Acute deep vein thrombosis (DVT) of popliteal v*09/30/2018 10/09/2018 Coronary artery disease involving point [place] cruz*01/07/2019 Cardiomyopathy, ischemic [I25.5] 01/07/2019 Bipolar disorder (HCC), manic, severe [F31.9] 08/29/2020 Noncompliance [Z91.199] 08/29/2020 Agitation [R45.1] 09/05/2020 Malnutrition of mild degree (HCC) [E44.1] 09/06/2020 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, *09/14/2020 Overweight [E66.3] 10/20/2020 Encounter Status:Closed by JOHNNA GAUTHIER on 01/08/22 Normal [facility] Basic metabolic 2000 panelon 01-02-2022 Anion gap [Moles/Vol] 12 mmol/L Normal 9-18 [facility] Comment on above: Order Comment: Speci men Type: BLOOD SPECIMENOrdering Facility: [facility] Address: [address] [place] [address] Performed By: #### 3 3762-6, 02825-9, 20402-6 ####[facility] [id number] [place] [address] [place] Calcium [Mass/Vol] 10.4 mg/dL High 8.5-10.2 [facility] Comment on above: Order Comment: Speci men Type: BLOOD SPECIMENOrdering Facility: [facility] Address: [address] [place] [address] Performed By: #### 3 3762-6, 05352-7, 44652-4 ####[facility] LABIA [id number] [place] [address] [place] Chloride [Moles/Vol] 100 mmol/L Normal 97-105 [facility] Comment on above: Order Comment: Speci men Type: BLOOD SPECIMENOrdering Facility: [facility] Address: [address] [place] [address] Performed By: #### 3 3762-6, 65422-5, 67197-9 ####[facility] LABCLIA [id number] [place] [address] [place] CO2 [Moles/Vol] 25 mmol/L Normal 22-30 [facility] Comment on above: Order Comment: Speci men Type: BLOOD SPECIMENOrdering Facility: [facility] Address: [address] [place] [address] Performed By: #### 3 3762-6, 71528-6, 20297-4 ####[facility] LABIA [id number] [address] [place] Creatinine [Mass/Vol] 0.95 mg/dL Normal 0.73-1.22 [facility] Comment on above: Order Comment: Speci men Type: BLOOD SPECIMENOrdering Facility: [facility] Address: [address] [place] [address] Performed By: #### 3 3762-6, 12559-0, 23331-4 ####[facility] [id number] [place] [address] [place] ESTIMATED GLOMERULAR FILTRATION RATE 87 mL/min/1.73m??? Normal >=60 [facility] Comment on above: Order Comment: Speci men Type: BLOOD SPECIMENOrdering Facility: [facility] Address: [address] [place] [address] Result Comment: Jennifer mated Glomerular Filtration Rate (eGFR) is calculated using the 2020 CKD-EPI creatinine equation. This equation utilizes serum creatinine, sex, and age as parameters. The creatinine assay has traceable calibration to isotope dilution-mass spectrometry. Refer to KDIGO guidelines for clinical interpretation. In patients with unstable renal function, e.g. those with acute kidney injury, the eGFR may not accurately reflect actual GFR. Performed By: #### 3 3762-6, 93859-5, 31479-7 ####[facility] LABIA [id number] [place] [address] [place] Glucose [Mass/Vol] 117 mg/dL High 74-99 [facility] Comment on above: Order Comment: Speci men Type: BLOOD SPECIMENOrdering Facility: [facility] Address: [address] [place] [address] Result Comment: The [place] Diabetes Association (ADA) provides guidance for cutoff values for fasting glucose and random glucose. The ADA defines fasting as no caloric intake for at least 8 hours. Fasting plasma glucose results between 100 to 125 mg/dL indicate increased risk for diabetes (prediabetes). Fasting plasma glucose results greater than or equal to 126 mg/dL meet the criteria for diagnosis of diabetes. In the absence of unequivocal hyperglycemia, results should be confirmed by repeat testing. In a patient with classic symptoms of hyperglycemia or hyperglycemic crisis, random plasma glucose results greater than or equal to 200 mg/dL meet the criteria for diagnosis of diabetes. Reference: Standards of Medical Care in Diabetes 2016, [place] Diabetes Association. Diabetes Care. 2016.39(Suppl 1). Performed By: #### 3 3762-6, 26406-4, 06650-1 ####[facility] LABCLIA [id number] [place] [address] [place] Potassium [Moles/Vol] 4.7 mmol/L Normal 3.7-5.1 [facility] Comment on above: Order Comment: Speci men Type: BLOOD SPECIMENOrdering Facility: [facility] Address: [address] [place] [address] Performed By: #### 3 3762-6, 97077-3, 40361-6 ####[facility] LABCLIA [id number] [place] [address] [place] Sodium [Moles/Vol] 137 mmol/L Normal 136-144 [facility] Comment on above: Order Comment: Speci men Type: BLOOD SPECIMENOrdering Facility: [facility] Address: [address] [place], [place] [address] Performed By: #### 3 3762-6, 99131-7, 05380-3 ####[facility] LABCLIA [id number] [place] [address] [place] Urea nitrogen [Mass/Vol] 17 mg/dL Normal 9-24 [facility] Comment on above: Order Comment: Speci men Type: BLOOD SPECIMENOrdering Facility: [facility] Address: [address] [place] [address] [place] [address] Performed By: #### 3 3762-6, 51152-0, 49587-4 ####[facility] LABCLIA [id number] [address] [place] CNOVon 01-02-2022 CNOV Office Visit (CECILIA OSEI MAI) MERCADOPAULOTHAD Lalito ([id number]) 1950 M Date Time Provider Department 01/02/22 12:45 PM MARIANELA BLANC MAI During your visit today, we recorded the following information about you: Pulse Blood pressure Weight Height 70/minute 111/74 87.5 kg 1.88 m Marianela Blanc MD 01/02/2022 2:44 PM Signed [facility] [place] [facility] SECTION OF HEART FAILURE and CARDIAC TRANSPLANT MEDICINE OUTPATIENT VISIT DATE January 02, 2022 OUTPATIENT VISIT TYPE Established Patient PRIMARY CARE PHYSICIAN: Patricia Caputo MD [address] [place] [address] CHIEF COMPLAINT: Follow-up HISTORY OF PRESENT ILLNESS: Thad Mercado is a 71 year old male [...] for psychiatric reasons and now lives at [facility]. At the snf, he is provided with medications. He presents with his younger daughter to clinic today. He is hoping to go to to [facility]. HF Nursing Assessment: Interim Hospitalizations [...] Allergic rhinitis, cause 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 Atherosclerosis of [place] arteries of the extremities with intermittent claudication 03/24/2008 left Backache, 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 Bipolar affective disorder, currently manic, moderate ([facility]) 2011 hospitalized at [facility] 04/06/2010-04/27/2010 Bipolar disorder, unspecified ([facility]) 03/24/2008 Cardiomyopathy in other diseases classified elsewhere 03/24/2008 COPD (chronic obstructive pulmonary disease) ([facility]) Esophageal reflux 03/24/2008 Hx of CABG 2007 Impotence of organic origin 03/24/2008 Ischemic cardiomyopathy 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[facility]) Loss of weight 03/24/2008 Loss of weight Lymphoma in remission ([facility]) chemo and radiation Nausea alone Nonorganic sleep disorder, 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 NSTEMI (non-ST elevated myocardial infarction) ([facility]) s/p 3 stents 2013 Obsessive-compulsive disorders 03/24/2008 OCD (obsessive compulsive disorder) Other malaise and fatigue 03/24/2008 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, face, and neck 03/24/2008 PAD (peripheral artery disease) ([facility]) s/p right iliac stent 2006 Panic disorder without agoraphobia 03/24/2008 Peripheral vascular disease, unspecified ([facility]) 03/24/2008 Pure hypercholesterolemia 03/24/2008 Tobacco use disorder 03/24/2008 Unspecified constipation PAST SURGICAL HISTORY Procedure Laterality Date COLONOSCOPY FLX DX W/COLLJ SPEC WHEN PFRMD 09/16/08 CORONARY ARTERY BYPASS 5 CORONARY VENOUS GRAFTS 01/11 Emily Lamb EGD TRANSORAL BIOPSY SINGLE/MULTIPLE 09/16/08 ESOPHAGOGASTRODUODENOSC OPY TRANSORAL DIAGNOSTIC 1988 [facility] EGD PAST SURGICAL HISTORY OF nasal [...] capsule by mouth once daily.Disp: Rfl: Saw Wilmore Fruit 450 mg capTake by mouth once daily.Disp: Rfl: digoxin (LANOXIN) 250 mcg (0.25 mg) tabletTake 1 tablet by mouth once daily.Disp: 30 tabletRfl: 11 metoprolol succinate ER (TOPROL XL) 25 m (more content not included)... Normal [facility] Office Visit (PERVMN ) THAD MERCADO ([id number]) 1950 M Date Time Provider Department 01/02/22 11:00 AM HVI DISCHARGE ECHO J3-5 PERVMN During your visit today, we recorded the following information about you: Referring Provider: MARIANELA BLANC [[id number]] Allergies As of Date: 01/02/2022 (No Known Allergies) Date Reviewed: 01/02/2022 Reviewed by: Shelby Man RN - Fully Assessed Visit Diagnoses:Chronic systolic heart failure (HCC) [I50.22] Pre-diabetes [R73.03] Order(s):ECHO [[id number]] Order #: [id number] #:[id number] : 1 LVEF TRANSTHORACIC ECHO [[id number]] Order #: [id number]. #:[id number] Qty: 1 Prescriptions as of 01/16/2022 - paliperidone palmitate (INVEGA SUSTENNA) 156 mg/mL syrg injection Inject 1 mL intramuscularly. - omeprazole (PRILOSEC) 20 mg capsule Take 1 capsule by mouth once daily. - Saw Wilmore Fruit 450 mg cap Take by mouth once daily. - dapagliflozin (FARXIGA) 10 mg tablet Take 1 tablet by mouth daily with breakfast. - digoxin (LANOXIN) 125 mcg (0.125 mg) tablet Take 1 tablet by mouth once daily. - bempedoic acid (NEXLETOL) 180 mg tablet Take 1 tablet (180 mg) by mouth daily at bedtime. - metoprolol succinate ER (TOPROL XL) 25 mg 24 hr tablet Take 1 tablet by mouth once daily. - sacubitril-valsartan (ENTRESTO) 24-26 mg tablet Take 1 tablet by mouth twice daily. - spironolactone (ALDACTONE) 25 mg tablet Take 1 tablet by mouth once daily. - apixaban (ELIQUIS) 5 mg tab(s) Take 1 tablet by mouth twice daily. - acetaminophen (TYLENOL) 325 mg tablet Take 2 tablets by mouth every 6 hours as needed for pain. - nitroglycerin sublingual (NITROSTAT) 0.4 mg SL tablet Dissolve 1 tablet under the tongue as needed for Chest Pain. If no pain relief call 911. - cholecalciferol (VITAMIN D-3) 5,000 unit tab Take 2,000 Units by mouth once daily. - Aspirin 81 mg ORAL Tab Take one(1) tablet daily. Facility-Administered Medications as of 01/16/2022 - sodium chloride 0.9 % (flush) 10 mL (BD POSIFLUSH) - perflutren lipid microspheres 1.3 mL in NaCl (PF) 0.9% 10 mL injection (DEFINITY) - sodium chloride 0.9 % (flush) 10 mL (BD POSIFLUSH) Problem List As Of Date 01/02/2022 Noted Resolved PURE HYPERCHOLESTEROLEM [E78.00] 03/24/2008 LYMPHOMAS NEC HEAD [C85.81] 03/24/2008 LOSS OF WEIGHT [R63.4] 03/24/2008 CARDIOMYOPATH IN OTHER DIS [I43] 03/24/2008 MALAISE AND FATIGUE NEC [R53.81, R53.83] 03/24/2008 OBSESSIVE-COMPULSIVE DIS [F42.9] 03/24/2008 BIPOLAR DISORDER NOS [F31.9] 03/24/2008 IMPOTENCE, ORGANIC ORIGN [N52.9] 03/24/2008 ESOPHAGEAL REFLUX [K21.9] 03/24/2008 PANIC DISORDER WITHOUT AGORAPHOBIA [F41.0] 03/24/2008 Tobacco use disorder [F17.200] 03/24/2008 Peripheral vascular disease, unspecified (HCC) *03/24/2008 CONSTIPATION NOS [K59.00] 03/24/2008 BACKACHE NOS [M54.9] 03/24/2008 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] 03/24/2008 Atherosclerosis of point [place] artery of extremity w*03/24/2008 ALLERGIC RHINITIS NOS [J30.9] 03/24/2008 ACUTE GASTRITIS W/O HEMORRHAGE [K29.00] 09/16/2008 NAUSEA ALONE [R11.0] 09/16/2008 Acute liver failure without hepatic coma [K72.0*09/25/2018 10/09/2018 Biventricular heart failure (HCC) [I50.82] 09/26/2018 ATN (acute tubular necrosis) (HCC) [N17.0] 09/26/2018 10/09/2018 Typical atrial flutter (HCC) [I48.3] 09/26/2018 Acute on chronic systolic heart failure (HCC) [*09/26/2018 10/09/2018 Left ventricular thrombus [I51.3] 09/26/2018 Cardiogenic shock (HCC) [R57.0] 09/26/2018 10/09/2018 Coagulopathy (HCC) [D68.9] 09/28/2018 Moderate protein-calorie malnutrition (HCC) [E4*09/28/2018 Febrile [R50.9] 09/29/2018 10/09/2018 Hypo-osmolality and hyponatremia [E87.1] 09/29/2018 10/09/2018 Acute deep vein thrombosis (DVT) of popliteal v*09/30/2018 10/09/2018 Coronary artery disease involving point [place] cruz*01/07/2019 Cardiomyopathy, ischemic [I25.5] 01/07/2019 Bipolar disorder (HCC), manic, severe [F31.9] 08/29/2020 Noncompliance [Z91.199] 08/29/2020 Agitation [R45.1] 09/05/2020 Malnutrition of mild degree (HCC) [E44.1] 09/06/2020 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, *09/14/2020 Overweight [E66.3] 10/20/2020 Encounter Status:Closed by MERVIN WATKINS on 01/16/22 Normal [facility] DIGOXIN/LANOXINon 01-02-2022 Digoxin [Mass/Vol] 1.5 ng/mL High 0.6-1.2 [facility] Comment on above: Order Comment: Speci men Type: BLOOD SPECIMENOrdering Facility: [facility] Address: [address] [place] [address] Result Comment: Prov ided therapeutic concentrations are based on the 2008 ESC Guidelines for the Diagnosis and Treatment of Acute and Chronic Heart Failure. Reference ranges and high/low indicator flags are provided as general guidelines only. The treating physician must determine appropriate target levels/dosing based on the specific clinical situation. Performed By: #### D IG ####[facility] LABCLIA [id number] [address] ECHOon 01-02-2022 Echocardiography Echocardiography Report: Transthoracic Echo [facility] J35 Date of service: 01/02/2022 11:01:25 AM PACKER Ordering physician: MARIANELA BLANC Indication: Evaluation of known heart failure to guide therapy Technologist: Virginia Gutierrez Interpreting physician: Edwar Perkins MD PATIENT: Name: MR. THAD MERCADO : 1950 Age: 71 years Gender: M History of coronary artery disease and cardiomyopathy. Previous cardiovascular interventions: CABG Primary rhythm: sinus. Height: 188.00 cm BSA: 2.15 m Weight: 88.77 kg BMI: 25.1 kg/m Heart rate 76 bpm Blood pressure 118/64 mmHg Color Doppler was utilized to interrogate the cardiac valves assessed and spectral Doppler was utilized to determine the flow velocities and pressure gradients reported in this exam. MEASUREMENTS: Value Indexed Normal Max aortic dimension 3.1 cm Ao < 3.8 Left atrial volume 92 ml (biplane A-L) 43 ml/m Sandra <= 34 LV ID (diastole) 6.1 cm (2D) 2.83 cm/m LV ID (systole) 4.8 cm (2D) 2.24 cm/m IVS, leaflet tips 1.0 cm (2D) Posterior wall thickness 0.8 cm (2D) Left ventricular mass 213 g (2D) 99 g/m LV stroke volume 55 ml (2D 4-ch.) LV end diastolic volume 181 ml (2D 4-ch.) 84.0 ml/m 34<=EDVi<75 LV end systolic volume 125 ml (2D 4-ch.) 58.3 ml/m Ejection Fraction 31 % (2D 4-ch.) EF > 52 FINDINGS: LEFT VENTRICLE The left ventricle is mildly dilated. Left ventricular systolic function is moderately decreased. Grade I left ventricular diastolic dysfunction. Mitral annular lateral E/e': 5.1. Mitral annular septal E/e': 8.0. Definity contrast used for endocardial border detection. Wall Motion: The inferior septum, entire inferior wall, and basal anteroseptal segment are akinetic. The entire anterior wall, entire lateral wall, mid anteroseptal segment, and apex are severely hypokinetic. RIGHT VENTRICLE The right ventricle is normal in size. Pacer wires are noted in the right ventricle. Right ventricular systolic function is normal. RV systolic tissue Doppler velocity is 9.0 cm/s. Tricuspid annular displacement is 1.7 cm. Estimated right ventricular systolic pressure is not reported due to an insufficient tricuspid regurgitation signal. Estimated right atrial pressure is 3 mmHg based on IVC assessment. LEFT ATRIUM The left atrial cavity is moderately dilated. RIGHT ATRIUM The right atrial cavity is normal in size. Pacer wires are noted in the right atrium. Inferior Vena Cava: The inferior vena cava appears normal measuring 1.2 cm. The vessel decreases greater than 50 percent with inspiration. MITRAL VALVE There is trace mitral valve regurgitation. There is mild thickening. The pressure half time is 54 msec. The peak mitral E/A ratio is 1.00. The average mitral E/e' ratio is 6.5. The mitral flow deceleration time is 187 msec. TRICUSPID VALVE The tricuspid valve leaflets are structurally normal. There is trace (trace - 1+) tricuspid valve regurgitation. The hepatic venous pattern showed normal systolic flow. AORTIC VALVE There is trace aortic valve regurgitation. Tricuspid aortic valve. There is mild thickening. PULMONIC VALVE The pulmonic valve cusps are structurally normal. There is no pulmonic valve regurgitation. AORTA The visualized aorta is normal in size. Measurements - Mid ascending aorta 3.1 cm. PULMONARY ARTERIES The pulmonary arteries are normal. INTERATRIAL SEPTUM There is no evidence of intracardiac shunting. INTERVENTRICULAR SEPTUM There is no flow through the interventricular septum. PERICARDIUM There is no pericardial effusion. There is an epicardial fat pad. CONCLUSIONS: - Exam indication: Evaluation of known heart failure to guide therapy - The left ventricle is mildly dilated. Left ventricular systolic function is moderately decreased. EF = 31 5% (2D 4-ch.) Definity contrast used for endocardial border detection. Grade I left ventricular diastolic dysfunction. - The right ventricle is normal in size. Right ventricular systolic function is normal. - The left atrial cavity is moderately dilated. - Exam was compared with the prior echocardiographic exam performed on 07/12/2020. Interval increase in LA/LV size. Similar LV function. * * * Final * * * [facility] : [id number] Normal [facility] HbA1c (Bld)on 01-02-2022 Average glucose Estimated from glycated hemoglobin (Bld) [Mass/Vol] 123 mg/dL Normal [facility] Comment on above: Order Comment: Speci men Type: BLOOD SPECIMENOrdering Facility: [facility] Address: [address] [place] [id number] Result Comment: eAG: (Estimated average glucose) is a calculated value from HgbA1c and is metals sales representative of the average blood glucose level in the last 2-3 month period. Performed By: #### 5 5454-3 ####[facility] [id number] [place] [address] [place] HbA1c (Bld) [Mass fraction] 5.9 % High 4.3-5.6 [facility] Comment on above: Order Comment: Speci men Type: BLOOD SPECIMENOrdering Facility: [facility] Address: [address] [place] [address] Result Comment: [place] Diabetes Association guidelines indicate that patients with HgbA1c in the range 5.7-6.4% are at increased risk for development of diabetes, and intervention by lifestyle modification may be beneficial. HgbA1c greater or equal to 6.5% is considered diagnostic of diabetes. Performed By: #### 5 5454-3 ####[facility] [id number] [place] [id number] [place] ICD CLINIC CHECKon 2 AV Delay Adaptive Paced Minimum (ms) 180 ms [facility] AV Delay Adaptive Sensed Minimum (ms) 150 ms [facility] AV Delay Adaptive Status DISABLED [facility] Battery Voltage 3.01 V [facility] Antonio RA Pacing Amplitude (volts) 1.5 V [facility] Antonio RA Pacing Polarity BI [facility] Antonio RA Pacing Pulse Width (ms) 0.4 ms [facility] Antonio RA Sensing Amplitude (mvolts) 0.15 mV [facility] Antonio RA Sensing Blanking Period (ms) 150 ms [facility] Antonio RA Sensing Polarity BI [facility] Anotnio RA Sensing Refractory Period (ms) Auto [facility] Antonio RV Pacing Amplitude (volts) 2 V [facility] Antonio RV Pacing Polarity BI [facility] Antonio RV Pacing Pulse Width (ms) 0.4 ms [facility] Antonio RV Sensing Amplitude (mvolts) 0.3 mV [facility] Antonio RV Sensing Blanking Period (ms) 200 ms [facility] Antonio RV Sensing Polarity BI [facility] Detection Configuration (Vent) 2 - Zone [facility] FastVT_Detection Interval 320 ms [facility] FastVT_Therapy Configuration 1 ATP(s) + 6 Shock(s) [facility] ICD ATAF DetectionInterval ms 350 ms [facility] ICD ATAF DetectionStatus ENABLED [facility] ICD FastVT DetectionStatus ENABLED [facility] ICD-ADLRATE_BPM 95 {beats}/min [facility] ICD-AMS EPISODES 171 {beats}/min [facility] ICD-ATP Episodes (Vent) 0 [facility] ICD-ATRIALFIBRILLATI ON 14 [facility] ICD-Counters Cleared Date 04/05/2019 [facility] ICD-Device Mfg MDT [facility] ICD-Fast Ventricular Tachycardia 1 [facility] ICD-Hysteresis Rate DISABLED [facility] ICD-LEADIMPEDANCEATR IAL 513 ohm [facility] ICD-Percent Pacing (Atrial) 23.63 % [facility] ICD-Percent Pacing (Vent) 0.08 % [facility] ICD-PMT Intervention DISABLED [facility] ICD-PVC Intervention ENABLED [facility] ICD-Rate Modulation Acceleration Reaction 30 s [facility] ICD-Rate Modulation Deceleration Exercise [facility] ICD-Rate Modulation Grand 3 [facility] ICD-Rate Modulation Threshold MediumLow [facility] ICD-Rhythm SR [facility] ICD-Shocks Aborted (Vent) 0 [facility] [id number] 0 [facility] ICD-SHOCKSABORTED [address] [facility] ICD-SHOCKSDELIVEREDV ENTRICULAR 0 [facility] ICD-Ventricular Fibrillation 0 [facility] Lead Impedance (RV) 456 ohm [facility] Lead Impedance High Voltage 81 ohm [facility] Lead1 Mfg MDT [facility] Lead2 Mfg MDT [facility] Location RA [facility] Location RV [facility] Lower Rate (bpm) 60 {beats}/min [facility] Max Sensor Rate (bpm) 130 {beats}/min [facility] MDT_PROG_TACHY_ZONE_ DETECTIONS_STATUS ENABLED [facility] Model [id number] [facility] XT [facility] [place] [facility] Model 5086 CapSureFix [facility] Model [id number] Sprint Quattro Secure S [facility] Pacemaker Dependent? NO [facility] Serial Number [id number] [facility] Serial Number [id number] [facility] Serial Number [id number] [facility] Test Charge Energy 18 J [facility] Test Charge Time 3.[address] [facility] Therapy Status (Vent) Enabled [facility] Thresh RA Capture Amplitude (volts) 0.375 V [facility] Thresh RA Capture Duration (ms) 0.4 ms [facility] Thresh RA Sensing Amplitude (mvolts) 0.375 mV [facility] Thresh RV Capture Amplitude (VOLTS) 0.625 V [facility] Thresh RV Capture Duration (MS) 0.4 ms [facility] Thresh RV Sensing Amplitude (MVOLTS) 4.5 mV [facility] Tracking Rate (bpm) 130 {beats}/min [facility] VF Zone Detection Interval 320 ms [facility] VF Zone Therapy Configuration 1 ATP(s) + 6 Shock(s) [facility] LVEF TRANSTHORACIC ECHOon LV Ejection Fraction 31 % Abnormal <52 % [facility] Lipid 1996 panelon Cholesterol [Mass/Vol] 182 mg/dL Normal <200 [facility] Comment on above: Order Comment: Speci men Type: BLOOD SPECIMENOrdering Facility: [facility] Address: [address] [place] [address] Result Comment: <200 mg/dL, Desirable 200-239 mg/dL, Borderline high >239 mg/dL, High Performed By: #### 3 3762-6, 89081-6, 75703-5 ####[facility] LABCLIA [id number] [place] [address] [place] [facility] Cholesterol in HDL [Mass/Vol] 34 mg/dL Low >39 [facility] Comment on above: Order Comment: Tom caraballo Type: BLOOD SPECIMENOrdering Facility: [facility] Address: [address] [place], [place] [address] Result Comment: 40-5 9 mg/dL, Acceptable >59 mg/dL, High: Negative risk factor for coronary heart disease <40 mg/dL, Low: Positive risk factor for coronary heart disease Performed By: #### 3 3762-6, 40743-6, 74790-3 ####[facility] LABCLIA [id number] [place] [address] OF [facility] Cholesterol in LDL [Mass/Vol] 116 mg/dL High <100 [facility] Comment on above: Order Comment: Tom caraballo Type: BLOOD SPECIMENOrdering Facility: [facility] Address: [address] [place] [address] Result Comment: <100 mg/dL, Optimal 100-129 mg/dL, Near optimal/above optimal 130-159 mg/dL, Borderline high 160-189 mg/dL, High >189 mg/dL, Very high Secondary prevention optimal LDL Cholesterol levels are recommended to be < 70 mg/dL Performed By: #### 3 3762-6, 70755-1, 19882-4 ####[facility] LABCLIA [id number] [address] Cholesterol in LDL/Cholesterol in HDL [Mass ratio] 3.41 {ratio} High <2.54 [facility] Comment on above: Order Comment: Tom caraballo Type: BLOOD SPECIMENOrdering Facility: [facility] Address: [address] [place] [address] Result Comment: Refe rence: 1. National Cholesterol Education Program ATP III Guideline At-A-Glance Quick Desk Reference: National Heart, Lung, and Blood [place]. National Institutes of Health. 2001: NIH Publication No. 01-3305. 2. An International Atherosclerosis Society position paper: global recommendations for the management of dyslipidemia: executive summary, Atherosclerosis. 2014: 232(2):410-413. Performed By: #### 3 3762-6, 82408-7, 76417-3 ####[facility] LABCLIA [id number] [address] [place] Cholesterol in VLDL [Mass/Vol] 32 mg/dL High <30 [facility] Comment on above: Order Comment: Tom caraballo Type: BLOOD SPECIMENOrdering Facility: [facility] Address: [address] [place] [address] Performed By: #### 3 3762-6, 41139-7, 51271-9 ####[facility] LABCLIA [id number] [place] [address] [place] Cholesterol non HDL [Mass/Vol] 148 mg/dL High <130 [facility] Comment on above: Order Comment: Speci men Type: BLOOD SPECIMENOrdering Facility: [facility] Address: [address] [place] [address] Result Comment: <130 mg/dL, Optimal 130-159 mg/dL, Near optimal/above optimal 160-189 mg/dL, Borderline high 190-219 mg/dL, High >219 mg/dL, Very high Secondary prevention optimal non HDL Cholesterol levels are recommended to be <100 mg/dL Performed By: #### 3 3762-6, 71637-4, 54721-6 ####[facility] LABCLIA [id number] [place] [address] [place] Cholesterol.total/Ch olesterol in HDL [Mass ratio] 5.35 {ratio} High <5.10 [facility] Comment on above: Order Comment: Speci men Type: BLOOD SPECIMENOrdering Facility: [facility] Address: [address] [place] [address] Performed By: #### 3 3762-6, 09103-7, 83446-5 ####[facility] LABCLIA [id number] [address] [place] FASTING TIME Normal [facility] Comment on above: Order Comment: Speci men Type: BLOOD SPECIMENOrdering Facility: [facility] Address: [address] [place] [address] Result Comment: unkn own Performed By: #### 3 3762-6, 90140-0, 27821-5 ####[facility] LABCLIA [id number] [address] STATES OF [facility] Triglyceride [Mass/Vol] 159 mg/dL High <150 [facility] Comment on above: Order Comment: Speci men Type: BLOOD SPECIMENOrdering Facility: [facility] Address: [address] [place] [address] Result Comment: <150 mg/dL, Normal 150-199 mg/dL, Borderline high 200-499 mg/dL, High >499 mg/dL, Very high Performed By: #### 3 3762-6, 98973-7, 82454-6 ####[facility] LABCLIA [id number] [place] [id number] [facility] NT-proBNP [facility] 01-02 Natriuretic peptide.B prohormone N-Terminal [Mass/Vol] 298 pg/mL High <125 [facility] Comment on above: Order Comment: Speci men Type: BLOOD SPECIMENOrdering Facility: [facility] Address: [address] [id number] Performed By: #### 3 3762-6, 53147-7, 77457-7 ####[facility] LABCLIA [id number] [address] OF [facility] No Panel Informationon 01-02 BLANK _ [facility] ICD-Fast Ventricular Tachycardia 0 [facility] Implant Date 04/05/2019 [facility] CNPNon 10-12-2021 CNPN Telephone (CARD [facility]) THAD MERCADO ([id number]) 1950 M Date Time Provider Department 10/12/21 MARIANELA BLANC [facility] During your visit today, we recorded the following information about you: Sarita Disla Sec 10/12/2021 10:59 AM Signed October 12, 2021 Name: Thad Mercado Patient Contact Number: [phone] (home) [phone] (cell) Date of last office visit: 06/05/2021 Reason For Call: Other Issue: Family member called to re-schedule appointment Physician: Marianela Blanc MD Patient was informed that non-urgent calls may be returned within the next three business days. Yes Patient's daughter called to reschedule his visit with Dr. Blanc, echo, pacemaker check and labs. Message was sent to [facility] to reach out to her. Marah Mercado @ [phone] Sarita Francisaev Sec Allergies As of Date: 10/12/2021 (No Known Allergies) Date Reviewed: 06/05/2021 Reviewed by: Marianela Blanc MD - Fully Assessed Reason for Visit: Appointment [186] Prescriptions as of 04/25/2022 - metoprolol succinate ER (TOPROL XL) 50 mg 24 hr tablet Take 1 tablet by mouth once daily. - sacubitril-valsartan (ENTRESTO) 49-51 mg tablet Take 1 tablet by mouth twice daily. - ezetimibe (ZETIA) 10 mg tablet Take 1 tablet by mouth once daily. - paliperidone palmitate (INVEGA SUSTENNA) 156 mg/mL syrg injection Inject 1 mL intramuscularly. - omeprazole (PRILOSEC) 20 mg capsule Take 1 capsule by mouth once daily. - [place] Fruit 450 mg cap Take by mouth once daily. - dapagliflozin (FARXIGA) 10 mg tablet Take 1 tablet by mouth daily with breakfast. - digoxin (LANOXIN) 125 mcg (0.125 mg) tablet Take 1 tablet by mouth once daily. - bempedoic acid (NEXLETOL) 180 mg tablet Take 1 tablet (180 mg) by mouth daily at bedtime. - spironolactone (ALDACTONE) 25 mg tablet Take 1 tablet by mouth once daily. - apixaban (ELIQUIS) 5 mg tab(s) Take 1 tablet by mouth twice daily. - acetaminophen (TYLENOL) 325 mg tablet Take 2 tablets by mouth every 6 hours as needed for pain. - nitroglycerin sublingual (NITROSTAT) 0.4 mg SL tablet Dissolve 1 tablet under the tongue as needed for Chest Pain. If no pain relief call 911. - cholecalciferol (VITAMIN D3) 5,000 unit tab Take 2,000 Units by mouth once daily. - Aspirin 81 mg ORAL Tab Take one(1) tablet daily. Facility-Administered Medications as of 04/25/2022 - sodium chloride 0.9 % (flush) 10 mL (BD POSIFLUSH) - perflutren lipid microspheres 1.3 mL in NaCl (PF) 0.9% 10 mL injection (DEFINITY) - sodium chloride 0.9 % (flush) 10 mL (BD POSIFLUSH) Problem List As Of Date 10/12/2021 Noted Resolved PURE HYPERCHOLESTEROLEM [E78.00] 03/24/2008 LYMPHOMAS NEC HEAD [C85.81] 03/24/2008 LOSS OF WEIGHT [R63.4] 03/24/2008 CARDIOMYOPATH IN OTHER DIS [I43] 03/24/2008 MALAISE AND FATIGUE NEC [R53.81, R53.83] 03/24/2008 OBSESSIVE-COMPULSIVE DIS [F42.9] 03/24/2008 BIPOLAR DISORDER NOS [F31.9] 03/24/2008 IMPOTENCE, ORGANIC ORIGN [N52.9] 03/24/2008 ESOPHAGEAL REFLUX [K21.9] 03/24/2008 PANIC DISORDER WITHOUT AGORAPHOBIA [F41.0] 03/24/2008 Tobacco use disorder [F17.200] 03/24/2008 Peripheral vascular disease, unspecified (HCC) *03/24/2008 CONSTIPATION NOS [K59.00] 03/24/2008 BACKACHE NOS [M54.9] 03/24/2008 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] 03/24/2008 Atherosclerosis of point [place] artery of extremity w*03/24/2008 ALLERGIC RHINITIS NOS [J30.9] 03/24/2008 ACUTE GASTRITIS W/O HEMORRHAGE [K29.00] 09/16/2008 NAUSEA ALONE [R11.0] 09/16/2008 Acute liver failure without hepatic coma [K72.0*09/25/2018 10/09/2018 Biventricular heart failure (HCC) [I50.82] 09/26/2018 ATN (acute tubular necrosis) (HCC) [N17.0] 09/26/2018 10/09/2018 Typical atrial flutter (HCC) [I48.3] 09/26/2018 Acute on chronic systolic heart failure (HCC) [*09/26/2018 10/09/2018 Left ventricular thrombus [I51.3] 09/26/2018 Cardiogenic shock (HCC) [R57.0] 09/26/2018 10/09/2018 Coagulopathy (HCC) [D68.9] 09/28/2018 Moderate protein-calorie malnutrition (HCC) [E4*09/28/2018 Febrile [R50.9] 09/29/2018 10/09/2018 Hypo-osmolality and hyponatremia [E87.1] 09/29/2018 10/09/2018 Acute deep vein thrombosis (DVT) of popliteal v*09/30/2018 10/09/2018 Coronary artery disease involving point [place] cruz*01/07/2019 Cardiomyopathy, ischemic [I25.5] 01/07/2019 Bipolar disorder (HCC), manic, severe [F31.9] 08/29/2020 Noncompliance [Z91.199] 08/29/2020 Agitation [R45.1] 09/05/2020 Malnutrition of mild degree (HCC) [E44.1] 09/06/2020 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, *09/14/2020 Overweight [E66.3] 10/20/2020 Encounter Status:Closed by SARITA GREEN on 04/25/22 [facility] Telephone (CARD [facility]) THAD MERCADO ([id number]) 1950 M Date Time Provider Department 10/12/21 MARIANELA BLANC CARD [facility] During your visit today, we recorded the following information about you: Madelaine Casas Adm 10/12/2021 10:56 AM Signed Opened in error Allergies As of Date: 10/12/2021 (No Known Allergies) Date Reviewed: 06/05/2021 Reviewed by: Marianela Blanc MD - Fully Assessed Reason for Visit: Follow Up [171] Prescriptions as of 10/12/2021 - digoxin (LANOXIN) 250 mcg (0.25 mg) tablet Take 1 tablet by mouth once daily. - metoprolol succinate ER (TOPROL XL) 25 mg 24 hr tablet Take 1 tablet by mouth once daily. - sacubitril-valsartan (ENTRESTO) 24-26 mg tablet Take 1 tablet by mouth twice daily. - spironolactone (ALDACTONE) 25 mg tablet Take 1 tablet by mouth once daily. - apixaban (ELIQUIS) 5 mg tab(s) Take 1 tablet by mouth twice daily. - acetaminophen (TYLENOL) 325 mg tablet Take 2 tablets by mouth every 6 hours as needed for pain. - aluminum-magnesium hydroxide-simethicone (MAALOX,MYLANTA,MAG-AL PLUS) 200-200-20 mg/5 mL suspension Take 30 mL by mouth every 4 hours as needed. - clonazePAM (KLONOPIN) 0.5 mg tablet Take 3 tablets by mouth daily at bedtime for 30 days. - valproic acid (DEPAKENE) 250 mg capsule Take 6 capsules by mouth daily at bedtime. - bempedoic acid (NEXLETOL) 180 mg tablet Take 1 tablet (180 mg) by mouth daily at bedtime. - OLANZapine orally disintegrating (ZYPREXA ZYDIS) 10 mg disintegrating tablet Take 1 tablet by mouth daily at bedtime. - QUEtiapine (SEROQUEL) 300 mg tablet Take 1 tablet by mouth daily at bedtime. - magnesium hydroxide (MOM) 400 mg/5 mL suspension Take 30 mL by mouth once daily as needed. - nitroglycerin sublingual (NITROSTAT) 0.4 mg SL tablet Dissolve 1 tablet under the tongue as needed for Chest Pain. If no pain relief call 911. - cholecalciferol (VITAMIN D-3) 5,000 unit tab Take 2,000 Units by mouth once daily. - Aspirin 81 mg ORAL Tab Take one(1) tablet daily. Facility-Administered Medications as of 10/12/2021 - perflutren lipid microspheres 1.3 mL in NaCl (PF) 0.9% 10 mL injection (DEFINITY) - sodium chloride 0.9 % (flush) 10 mL (BD POSIFLUSH) - perflutren lipid microspheres 1.3 mL in NaCl (PF) 0.9% 10 mL injection (DEFINITY) - sodium chloride 0.9 % (flush) 10 mL (BD POSIFLUSH) Problem List As Of Date 10/12/2021 Noted Resolved PURE HYPERCHOLESTEROLEM [E78.00] 03/24/2008 LYMPHOMAS NEC HEAD [C85.81] 03/24/2008 LOSS OF WEIGHT [R63.4] 03/24/2008 CARDIOMYOPATH IN OTHER DIS [I43] 03/24/2008 MALAISE AND FATIGUE NEC [R53.81, R53.83] 03/24/2008 OBSESSIVE-COMPULSIVE DIS [F42.9] 03/24/2008 BIPOLAR DISORDER NOS [F31.9] 03/24/2008 IMPOTENCE, ORGANIC ORIGN [N52.9] 03/24/2008 ESOPHAGEAL REFLUX [K21.9] 03/24/2008 PANIC DISORDER WITHOUT AGORAPHOBIA [F41.0] 03/24/2008 Tobacco use disorder [F17.200] 03/24/2008 Peripheral vascular disease, unspecified (HCC) *03/24/2008 CONSTIPATION NOS [K59.00] 03/24/2008 BACKACHE NOS [M54.9] 03/24/2008 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] 03/24/2008 Atherosclerosis of [place] artery of extremity w*03/24/2008 ALLERGIC RHINITIS NOS [J30.9] 03/24/2008 ACUTE GASTRITIS W/O HEMORRHAGE [K29.00] 09/16/2008 NAUSEA ALONE [R11.0] 09/16/2008 Acute liver failure without hepatic coma [K72.0*09/25/2018 10/09/2018 Biventricular heart failure (HCC) [I50.82] 09/26/2018 ATN (acute tubular necrosis) (HCC) [N17.0] 09/26/2018 10/09/2018 Typical atrial flutter (HCC) [I48.3] 09/26/2018 Acute on chronic systolic heart failure (HCC) [*09/26/2018 10/09/2018 Left ventricular thrombus [I51.3] 09/26/2018 Cardiogenic shock (HCC) [R57.0] 09/26/2018 10/09/2018 Coagulopathy (HCC) [D68.9] 09/28/2018 Moderate protein-calorie malnutrition (HCC) [E4*09/28/2018 Febrile [R50.9] 09/29/2018 10/09/2018 Hypo-osmolality and hyponatremia [E87.1] 09/29/2018 10/09/2018 Acute deep vein thrombosis (DVT) of popliteal v*09/30/2018 10/09/2018 Coronary artery disease involving point hope ira cruz*01/07/2019 Cardiomyopathy, ischemic [I25.5] 01/07/2019 Bipolar disorder (HCC), manic, severe [F31.9] 08/29/2020 Noncompliance [Z91.19] 08/29/2020 Agitation [R45.1] 09/05/2020 Malnutrition of mild degree (HCC) [E44.1] 09/06/2020 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, *09/14/2020 Overweight [E66.3] 10/20/2020 Encounter Status:Closed by MADELAINE REHMAN on 10/12/21 Normal [facility] CBC with Diffon 07-08-2021 AB IMMATURE NEUT 0.04 K/UL Normal 0.0-0.1 [facility] Comment on above: Performed By: #### C BCD #### [facility] [place] [address] [place] [address] ABS BASO 0.05 K/UL Normal 0.00-0.22 [facility] Comment on above: Performed By: #### C BCD #### [facility] [address] [place] [address] [place] [address] ABS EOS 0.12 K/UL Normal 0-0.45 [facility] Comment on above: Performed By: #### C BCD #### [facility] [place] [address] [place] [address] ABS NEUTROPHILS 7.38 K/UL Normal 1.8-7.7 [facility] Comment on above: Performed By: #### C BCD #### [facility] [place] [address] [place] [address] ABS.NEUT.CALCULATED 7.38 K/UL Normal [facility] Comment on above: Result Comment: Perf ormed at [address] [address] Performed By: #### C BCD #### [address] [address] Basophils/100 WBC (Bld) 0.50 % Normal 0-1 [facility] Comment on above: Performed By: #### C BCD #### [place] [address] [place] [address] DIFF TYPE AUTO DIFF Normal [facility] Comment on above: Performed By: #### C BCD #### [address] [place] [address] [place] [address] Eosinophils/100 WBC (Bld) 1.20 % Normal 0-3 [facility] Comment on above: Performed By: #### C BCD #### [address] [place] [address] [place] [address] Erythrocyte distribution width (RBC) [Ratio] 13.1 % Normal 11.7-15.0 [facility] Comment on above: Performed By: #### C BCD #### [address] [place] [address] [address] [place] [address] Hematocrit (Bld) [Volume fraction] 46.5 % Normal 41-50 [facility] Comment on above: Performed By: #### C BCD #### [address] [place] [address] [place] [address] Hemoglobin (Bld) [Mass/Vol] 16.1 g/dL Normal 13.5-16.5 [facility] Comment on above: Performed By: #### C BCD #### [address] [place] [address] [place] [address] Lymphocytes (Bld) [#/Vol] 1.49 10*3/uL Normal 1.2-3.2 [facility] Comment on above: Performed By: #### C BCD #### [address] [place] [address] [place] [address] Lymphocytes/100 WBC (Bld) 15.40 % Low 20-40 [facility] Comment on above: Performed By: #### C BCD #### [address] [place] [address] [place] [address] MCH (RBC) [Entitic mass] 31.1 pg Normal 26-34 [facility] Comment on above: Performed By: #### C BCD #### [address] [place] [address] [place] [address] MCHC 34.6 % Normal 31-37 [facility] Comment on above: Performed By: #### C BCD #### [facility] [place] [address] [place] [address] MCV (RBC) [Entitic vol] 89.9 fL Normal 80-100 [facility] Comment on above: Performed By: #### C BCD #### [facility] [place] [address] [place] [address] MEAN PLT VOL 10.6 CU Normal 7.0-12.6 [facility] Comment on above: Performed By: #### C BCD #### [address] [address] [place] [address] Monocytes (Bld) [#/Vol] 0.59 10*3/uL Normal 0-0.8 [facility] Comment on above: Performed By: #### C BCD #### [address] [place] [address] [place] [address] Monocytes/100 WBC (Bld) 6.10 % Normal 0-8 [facility] Comment on above: Performed By: #### C BCD #### [address] [place] [address] [place] [address] Neutrophils/100 WBC (Bld) 0.40 % Normal 0.0-1.0 [facility] Comment on above: Performed By: #### C BCD #### [address] [address] [place] [address] Neutrophils/100 WBC (Bld) 76.40 % High 50-70 [facility] Comment on above: Performed By: #### C BCD #### [address] [place] [address] [place] [address] NRBC'S 0 /100 WBC Normal 0 [facility] Comment on above: Performed By: #### C BCD #### [facility] [place] [address] [place] [address] Platelets (Bld) [#/Vol] 210 10*3/uL Normal 150-450 [facility] Comment on above: Performed By: #### C BCD #### [facility] [place] [address] [place] [address] RBC (Bld) [#/Vol] 5.17 10*6/uL Normal 4.5-5.5 [facility] Comment on above: Performed By: #### C BCD #### [facility] [place] [address] [place] [address] RDW-SD 42.7 FL Normal 37.0-54.0 [facility] Comment on above: Performed By: #### C BCD #### [facility] [address] [place] [address] WBC (Bld) [#/Vol] 9.7 10*3/uL Normal 4.5-11.0 [facility] Comment on above: Performed By: #### C BCD #### [facility] [place] [address] [place] [address] Laboratoryon 07-08-2021 Drug screen comment (U) [Interp] Urine Drug Comment These Toxicological Screening Tests provide unconfirmed qualitative measurements to aid in treatment and diagnosis in cases of drug use or overdose. This test is used only for medical purposes. A positive result does not indicate or measure intoxication. For specific test performance or pathologist consultation, please contact the Laboratory. The following threshold concentrations are used for these analyses. Values at or above the threshold concentration are reported as Positive. Values below the threshold are reported as negative. Drug Screening Threshold THC/CANNABINOIDS 50 ng/ml METHADONE 300 ng/ml COCAINE METABOLITES 300 ng/ml BENZODIAZEPINE 300 ng/ml PCP 25 ng/ml OPIATE 300 ng/ml AMPHETAMINE/ECSTASY 1000 ng/ml BARBITURATE 200 ng/ml OXYCODONE 100 ng/ml (Reference Range: not available) [facility] [place] [facility] - Drug toxicology on 07-08-2021 Amphetamines Screen method >1000 ng/mL Ql (U) Urine Amphetamine NEGATIVE (Reference Range: not available) [facility] [place] Barbiturates Screen method >300 ng/mL Ql (U) Urine Barbiturate NEGATIVE (Reference Range: not available) [facility] [place] Benzodiazepines Screen method >300 ng/mL Ql (U) Urine Benzodiazepine NEGATIVE (Reference Range: not available) [facility] Benzoylecgonine Screen method >300 ng/mL Ql (U) Urine Cocaine Metabolites NEGATIVE (Reference Range: not available) [facility] Cannabinoids Screen method >50 ng/mL Ql (U) THC/Cannabinoids NEGATIVE (Reference Range: not available) [facility] Methadone Ql (U) Urine Methadone NEGATIVE (Reference Range: not available) [facility] Opiates Screen method >300 ng/mL Ql (U) Urine Opiate NEGATIVE (Reference Range: not available) [facility] oxyCODONE Ql (U) Urine Oxycodone NEGATIVE Performed at [address] [address] (Reference Range: not available) [facility] Phencyclidine Screen method >25 ng/mL Ql (U) Urine PCP NEGATIVE (Reference Range: not available) [facility] - Hematology and Cell countson 07-08-2021 Basophils (Bld) [#/Vol] Abs Baso 0.05 K/UL (0.00-0.22 K/UL) 0.00 - 0.22 K/UL [facility] Basophils/100 WBC (Bld) Basophil 0.50 % (0-1 %) 0 - 1 % [facility] Differential cell count method Nom (Bld) Diff Type AUTO DIFF (Reference Range: not available) [facility] Eosinophils (Bld) [#/Vol] Abs Eos 0.12 K/UL (0-0.45 K/UL) 0 - 0.45 K/UL [facility] Eosinophils/100 WBC (Bld) Eosinophil 1.20 % (0-3 %) 0 - 3 % [facility] Erythrocyte distribution width (RBC) [Entitic vol] RDW SD 42.7 FL (37.0-54.0 FL) 37.0 - 54.0 FL [facility] Erythrocyte distribution width (RBC) [Ratio] RDW CV 13.1 % (11.7-15.0 %) 11.7 - 15.0 % [facility] Hematocrit (Bld) [Volume fraction] HCT 46.5 % (41-50 %) 41 - 50 % [facility] Hemoglobin (Bld) [Mass/Vol] HGB 16.1 GM/DL (13.5-16.5 GM/DL) 13.5 - 16.5 GM/DL [facility] [place] Immature granulocytes (Bld) [#/Vol] Abs Imm Neut 0.04 K/UL (0.0-0.1 K/UL) 0.0 - 0.1 K/UL [facility] [place] Lymphocytes (Bld) [#/Vol] Abs Lymph 1.49 K/UL (1.2-3.2 K/UL) 1.2 - 3.2 K/UL [facility] Lymphocytes/100 WBC (Bld) Lymphocyte 15.40 % L (20-40 %) Low 20 - 40 % [facility] MCH (RBC) [Entitic mass] MCH 31.1 PG (26-34 PG) 26 - 34 PG [facility] [place] [facility] MCHC (RBC) [Mass/Vol] MCHC 34.6 % (31-37 %) 31 - 37 % [facility] MCV (RBC) [Entitic vol] MCV 89.9 FL (80-100 FL) 80 - 100 FL [facility] Monocytes (Bld) [#/Vol] Abs [place] 0.59 K/UL (0-0.8 K/UL) 0 - 0.8 K/UL [facility] Monocytes/100 WBC (Bld) Monocyte 6.10 % (0-8 %) 0 - 8 % [facility] Neutrophils (Bld) [#/Vol] Abs.Neut.Calculated 7.38 K/UL (Reference Range: not available) Performed at [address] [address] [facility] Neutrophils (Bld) [#/Vol] Abs Neut 7.38 K/UL (1.8-7.7 K/UL) 1.8 - 7.7 K/UL [facility] Neutrophils.immature /100 WBC (Bld) Immature Neut % 0.40 % (0.0-1.0 %) 0.0 - 1.0 % [facility] Nucleated RBC/100 WBC (Bld) [Ratio] NRBCs 0 /100 WBC (0 /100 WBC) [facility] Platelet mean volume (Bld) [Entitic vol] MPV 10.6 CU (7.0-12.6 CU) 7.0 - 12.6 CU [facility] Platelets (Bld) [#/Vol] PLT 210 K/UL (150-450 K/UL) 150 - 450 K/UL [facility] RBC (Bld) [#/Vol] RBC 5.17 M/UL (4.5-5 .5 M/UL) 4.5 - 5.5 M/UL [facility] Segmented neutrophils/100 WBC (Bld) Granulocyte 76.40 % H (50-70 %) High 50 - 70 % [facility] WBC (Bld) [#/Vol] WBC 9.7 K/UL (4.5-11 .0 K/UL) 4.5 - 11.0 K/UL [facility] - Microbiology an d Antimicrobial susceptibilityon 07-08-2021 FLUAV RNA YAMILET+probe Ql (Nph) FLU A by PCR NEGATIVE (Reference Range: not available) [facility] FLUBV RNA YAMILET+probe Ql (Nph) FLU B by PCR NEGATIVE (Reference Range: not available) [facility] SARS-CoV-2 (COVID-19) RNA YAMILET+probe Ql (Unsp spec) SARS-CoV-2 by PCR NEGATIVE (NEG ) [facility] SARS-CoV-2,INFLUENZA A/B NUC LEIC ACID TESTon 07-08-2021 EUA DISCLAIMER [facility] Comment on above: Result Comment: This test has been authorized by FDA under an EUA for use by CLIA Certified Moderate and High-Complexity laboratories and Point of Care (POC), i.e., in patient care settings operating under a CLIA Certificate of Waiver, Certificate of Compliance, or Certificate of Accreditation. This test has been authorized only for the simultaneous qualitative detection and differentiation of nucleic acid from SARS-CoV-2, influenza A virus, and influenza B virus and not for any other viruses or pathogens. This test is only authorized for the duration of the declaration that circumstances exist justifying the authorization of emergency use of in vitro diagnostic tests for the detection and/or diagnosis of COVID-19, unless the authorization is terminated or revoked sooner. Performed at [place] [address] Performed By: #### F LUCOV #### [place] [address] FLU A by PCR Negative [facility] Comment on above: Performed By: #### F LUCOV #### Main Laboratory [place] [id number] [place] [address] FLU B by PCR Negative [facility] Comment on above: Performed By: #### F LUCOV #### [facility] [id number] [place] [address] SARS-CoV-2 (COVID-19) RNA YAMILET+probe Ql (Unsp spec) Negative [facility] Comment on above: Performed By: #### F LUCOV #### [facility] [address] [place] [address] URINE DRUG SCREENon 07-09-19 22 AMPHETAMINE/ECSTASY Negative [facility] Comment on above: Performed By: #### U DS #### [facility] [address] [place] [address] BARBITURATE Negative [facility] Comment on above: Performed By: #### U DS #### [facility] [id number] [place] [address] BENZODIAZEPINE Negative [facility] Comment on above: Performed By: #### U DS #### [facility] [id number] [place] [address] COCAINE METABOLITES Negative [facility] Comment on above: Performed By: #### U DS #### [facility] [address] [place] [address] METHADONE Negative [facility] Comment on above: Performed By: #### U DS #### [facility] [address] [place] [address] OPIATE Negative [facility] Comment on above: Performed By: #### U DS #### [facility] [address] [place] [address] OXYCODONE [facility] Comment on above: Result Comment: NEGA TIVE Performed at [facility] [id number] [place] [address] Performed By: #### U DS #### [facility] [id number] [place] [address] PCP Negative [facility] Comment on above: Performed By: #### U DS #### [facility] [address] [place] [address] THC/CANNABINOIDS Negative [facility] Comment on above: Performed By: #### U DS #### [address] [address] COMMENT [facility] Comment on above: Result Comment: Thes e Toxicological Screening Tests provide unconfirmed qualitative measurements to aid in treatment and diagnosis in cases of drug use or overdose. This test is used only for medical purposes. A positive result does not indicate or measure intoxication. For specific test performance or pathologist consultation, please contact the Laboratory. The following threshold concentrations are used for these analyses. Values at or above the threshold concentration are reported as Positive. Values below the threshold are reported as negative. Drug Screening Threshold THC/CANNABINOIDS 50 ng/ml METHADONE 300 ng/ml COCAINE METABOLITES 300 ng/ml BENZODIAZEPINE 300 ng/ml PCP 25 ng/ml OPIATE 300 ng/ml AMPHETAMINE/ECSTASY 1000 ng/ml BARBITURATE 200 ng/ml OXYCODONE 100 ng/ml Performed By: #### U DS #### [address] [address] CORONAVIRUS PCR - [facility] 02-15-2021 SARS-CoV-2 (COVID-19) RNA YAMILET+probe Ql (Unsp spec) Negative Normal NORMAL: NEGATIVE [facility] Comment on above: Performed By: #### 2 [id number] #### [facility],[address] [place], [place] [id number] SEND TO IC? NO Normal [facility] Comment on above: Result Comment: RESU LTS FAXED TO INFECTION CONTROL. SARS-CoV-2 THIS TEST IS BEING USED UNDER THE FDA EUA PROCEDURE. THIS ASSAY HAS BEEN VALIDATED IN THE [facility] FOR USE WITH NASOPHARYNGEAL SPECIMENS IN [facility]. INTERPRETIVE DATA LABORATORY TEST RESULTS SHOULD ALWAYS BE CONSIDERED IN THE CONTEXT OF CLINICAL OBSERVATIONS AND EPIDEMIOLOGICAL DATA IN MAKING FINAL DIAGNOSIS AND PATIENT MANAGEMENT DECISIONS. PATIENT MANAGEMENT SHOULD FOLLOW CURRENT CDC GUIDELINES. A POSITIVE TEST RESULT FOR COVID-19 INDICATES THAT RNA FROM SARS-CoV-2 WAS DETECTED, AND THE PATIENT IS INFECTED WITH THE VIRUS AND PRESUMED TO BE CONTAGIOUS. A NEGATIVE TEST RESULT FOR THIS TEST MEANS THAT SARS-CoV-2 RNA WAS NOT PRESENT IN THE SPECIMEN ABOVE THE LIMIT OF DETECTION. HOWEVER, A NEGATVIE RESULT DOES NOT RULE OUT COVID-19 AND SHOULD NOT BE USED THE SOLE BASIS FOR TREATMENT OR PATIENT MANAGEMENT DECISIONS. A NEGATIVE RESULT DOES NOT EXCLUDE THE POSSIBILITY OF COVID-19. WHEN DIAGNOSTIC TESTING IS NEGATIVE, THE POSSIBLILTY OF A FALSE NEGATIVE RESULT SHOULD BE CONSIDERED IN THE CONTEXT OF A PATIENT'S RECENT EXPOSURES AND THE PRESENCE OF CLINICAL SIGNS AND SYMPTOMS CONSISTENT WITH COVID-19. THE POSSIBILITY OF A FALSE NEGATIVE RESULT SHOULD ESPECIALLY BE CONSIDERED IF THE PATIENT'S RECENT EXPOSURES OR CLINICAL PRESENTATION INDICATE THAT COVID-19 IS LIKELY, AND DIAGNOSTIC TESTS FOR OTHER CAUSES OF ILLNESS (e.g., OTHER RESPIRATORY ILLNESS) ARE NEGATIVE. IF COVID-19 IS STILL SUSPECTED BASED ON EXPOSURE HISTORY TOGETHER WITH OTHER CLINICAL FINDINGS, RE-TESTED SHOULD BE CONSIDERED BY HEALTHCARE PROVIDERS IN CONSULTATION WITH PUBLIC HEALTH AUTHORITIES. Performed By: #### 2 [id number] #### [facility],[address] [place] [address] Progress Noteson 01-03-2021 [employer] Authentication Interface Message Text I reviewed the patient's diagnostic assessment note. I personally reviewed the oviedo and critical portions assessing the patient's current psychological functioning. I reviewed the clinician's documentation. I agree with the clinician's psychological decision making as documented in the note. Clinician completed a thorough risk assessment, which demonstrates that patient does not pose an imminent or clearly foreseeable risk of harm to self or others, and is able to function, therefore not requiring any immediate intervention, nor a mandate to engage duty to warn or duty to protect. Clinician discussed safety measures with patient. Follow-up care was discussed. MAURISIO Gar-S Mental Health Therapist, Client Rights Officer Normal [facility] Progress Noteson 12-25-2020 Glass [employer] Authentication Interface Message Text You are not granted access to view this sensitive note. Normal [facility] CASE MANAGEMon 10-24-2020 CASE MANAGEM Normal [facility] CNDSon 10-24-2020 CNDS [facility] CONSULT PROGon 10-24-2020 CONSULT PROG Normal [facility] NURSING PROGon 10-24-2020 NURSING PROG Normal [facility] CASE MANAGEMon 10-23-2020 CASE MANAGEM Normal [facility] CONSULT PROGon 10-23-2020 CONSULT PROG Normal [facility] NURSING PROGon 10-23-2020 NURSING PROG Normal [facility] NURSING PROG Normal [facility] NURSING PROG Normal [facility] NURSING PROGon 10-22-2020 NURSING PROG Normal [facility] NURSING PROG Normal [facility] NURSING PROG Normal [facility] CONSULT PROGon 10-21-2020 CONSULT PROG Normal [facility] CASE MANAGEMon 10-20-2020 CASE MANAGEM Normal [facility] NURSING PROGon 10-20-2020 NURSING PROG Normal [facility] NURSING PROG Normal [facility] NUTRITIONon 10-20-2020 NUTRITION Normal [facility] Ammonia Plas-sCncon 10-20-19 21 Ammonia (P) [Moles/Vol] 37 umol/L Normal 16-60 [facility] Comment on above: Order Comment: Speci men Type: BLOOD SPECIMEN Performed By: #### 1 6362-6 ####[facility]ORYCLIA [id number] [place] [address] CBC W Auto Differential pane l (Bld)on 10-19-2020 Basophils (Bld) [#/Vol] 0.09 10*3/uL Normal <0.11 [facility] Comment on above: Order Comment: Speci men Type: BLOOD SPECIMEN Performed By: #### 5 7021-8 ####[facility] [id number] [place] [address] Basophils/100 WBC (Bld) 1.0 % Normal [facility] Comment on above: Order Comment: Speci men Type: BLOOD SPECIMEN Performed By: #### 5 7021-8 ####[facility] [id number] [place] [address] Differential cell count method Nom (Bld) Auto Normal [facility] Comment on above: Order Comment: Speci men Type: BLOOD SPECIMEN Performed By: #### 5 7021-8 ####[facility] [id number] [place] [address] Eosinophils (Bld) [#/Vol] 0.36 10*3/uL Normal <0.46 [facility] Comment on above: Order Comment: Speci men Type: BLOOD SPECIMEN Performed By: #### 5 7021-8 ####[facility] [id number] [place] [address] Eosinophils/100 WBC (Bld) 4.1 % Normal [facility] Comment on above: Order Comment: Speci men Type: BLOOD SPECIMEN Performed By: #### 5 7021-8 ####[facility] [id number] [place] [address] Erythrocyte distribution width (RBC) [Ratio] 12.6 % Normal 11.5-15.0 [facility] Comment on above: Order Comment: Speci men Type: BLOOD SPECIMEN Performed By: #### 5 7021-8 ####[facility] [id number] [place] [address] Hematocrit (Bld) [Volume fraction] 41.7 % Normal 39.0-51.0 [facility] Comment on above: Order Comment: Speci men Type: BLOOD SPECIMEN Performed By: #### 5 7021-8 ####[facility] [id number] [place] [address] Hemoglobin (Bld) [Mass/Vol] 13.9 g/dL Normal 13.0-17.0 [facility] Comment on above: Order Comment: Speci men Type: BLOOD SPECIMEN Performed By: #### 5 7021-8 ####[facility] [id number] [place] [address] IMMATURE GRAN % 1.0 % Normal [facility] Comment on above: Order Comment: Speci men Type: BLOOD SPECIMEN Performed By: #### 5 7021-8 ####[facility] [id number] [place] [address] IMMATURE GRAN ABS 0.09 k/uL Normal <0.10 [facility] Comment on above: Order Comment: Speci men Type: BLOOD SPECIMEN Performed By: #### 5 7021-8 ####[facility]ORYCLIA [id number] [place] [address] Lymphocytes (Bld) [#/Vol] 2.73 10*3/uL Normal 1.00-4.00 [facility] Comment on above: Order Comment: Speci men Type: BLOOD SPECIMEN Performed By: #### 5 7021-8 ####[facility]ORYCLIA [id number] [place] [address] Lymphocytes/100 WBC (Bld) 31.3 % Normal [facility] Comment on above: Order Comment: Speci men Type: BLOOD SPECIMEN Performed By: #### 5 7021-8 ####[facility]ORYCLIA [id number] [place] [address] MCH (RBC) [Entitic mass] 30.8 pg Normal 26.0-34.0 [facility] Comment on above: Order Comment: Speci men Type: BLOOD SPECIMEN Performed By: #### 5 7021-8 ####[facility]ORYCLIA [id number] [place] [address] MCHC (RBC) [Mass/Vol] 33.3 g/dL Normal 30.5-36.0 [facility] Comment on above: Order Comment: Speci men Type: BLOOD SPECIMEN Performed By: #### 5 7021-8 ####[facility]ORYCLIA [id number] [place] [address] MCV (RBC) [Entitic vol] 92.5 fL Normal 80.0-100.0 [facility] Comment on above: Order Comment: Speci men Type: BLOOD SPECIMEN Performed By: #### 5 7021-8 ####[facility]ATORYCLIA [id number] [place] [address] Monocytes (Bld) [#/Vol] 1.02 10*3/uL High <0.87 [facility] Comment on above: Order Comment: Speci men Type: BLOOD SPECIMEN Performed By: #### 5 7021-8 ####[facility]ORYCLIA [id number] [place] [address] Monocytes/100 WBC (Bld) 11.7 % Normal [facility] Comment on above: Order Comment: Speci men Type: BLOOD SPECIMEN Performed By: #### 5 7021-8 ####[facility]ORY[facility]IA [id number] [place] [address] Neutrophils (Bld) [#/Vol] 4.43 10*3/uL Normal 1.45-7.50 [facility] Comment on above: Order Comment: Speci men Type: BLOOD SPECIMEN Performed By: #### 5 7021-8 ####[facility]ORYCLIA [id number] [place] [address] Neutrophils/100 WBC (Bld) 50.9 % Normal [facility] Comment on above: Order Comment: Speci men Type: BLOOD SPECIMEN Performed By: #### 5 7021-8 ####[facility]ORYCLIA [id number] [place] [address] Nucleated RBC (Bld) [#/Vol] 10*3/uL Normal <0.01 [facility] Comment on above: Order Comment: Speci men Type: BLOOD SPECIMEN Performed By: #### 5 7021-8 ####[facility]ORY[facility]IA [id number] [place] [address] Nucleated RBC/100 WBC (Bld) [Ratio] 0.0 /100 WBC Normal 0.0 [facility] Comment on above: Order Comment: Speci men Type: BLOOD SPECIMEN Performed By: #### 5 7021-8 ####[facility]ORYCLIA [id number] [place] [address] Platelet mean volume (Bld) [Entitic vol] 11.1 fL Normal 9.0-12.7 [facility] Comment on above: Order Comment: Speci men Type: BLOOD SPECIMEN Performed By: #### 5 7021-8 ####[facility]ORYCLIA [id number] [place] [address] Platelets (Bld) [#/Vol] Normal [facility] Comment on above: Order Comment: Speci men Type: BLOOD SPECIMEN Result Comment: Plat elets Clumped Estimate Normal. Performed By: #### 5 7021-8 ####[facility]ATORYCLIA [id number] [place] [address] RBC (Bld) [#/Vol] 4.51 10*6/uL Normal 4.20-6.00 [facility] Comment on above: Order Comment: Speci men Type: BLOOD SPECIMEN Performed By: #### 5 7021-8 ####[facility]ATORYCLIA [id number] [place] [address] WBC (Bld) [#/Vol] 8.72 10*3/uL Normal 3.70-11.00 [facility] Comment on above: Order Comment: Speci men Type: BLOOD SPECIMEN Performed By: #### 5 7021-8 ####[facility]ATORYCLIA [id number] [place] [address] Comprehensive metabolic 2000 panelon 10-19-2020 Albumin [Mass/Vol] 4.0 g/dL Normal 3.9-4.9 [facility] Comment on above: Order Comment: Speci men Type: BLOOD SPECIMEN Performed By: #### 2 4323-8, LIPB, 68799-1, 3016-3 ####[facility]ATORYCLIA [id number] [place] [address] ALP [Catalytic activity/Vol] 51 U/L Normal 38-113 [facility] Comment on above: Order Comment: Speci men Type: BLOOD SPECIMEN Performed By: #### 2 4323-8, LIPB, 96203-0, 3016-3 ####[facility]ATORYCLIA [id number] [place] [address] ALT With P-5'-P [Catalytic activity/Vol] 16 U/L Normal 10-54 [facility] Comment on above: Order Comment: Speci men Type: BLOOD SPECIMEN Performed By: #### 2 4323-8, LIPB, , 3015-3 ####[facility]ORYCLIA [id number] [place] [address] Anion gap [Moles/Vol] 8 mmol/L Low 9-18 [facility] Comment on above: Order Comment: Speci men Type: BLOOD SPECIMEN Performed By: #### 2 4323-8, LIPB, , 3015-3 ####[facility]ORYCLIA [id number] [place] [address] AST With P-5'-P [Catalytic activity/Vol] 19 U/L Normal 14-40 [facility] Comment on above: Order Comment: Speci men Type: BLOOD SPECIMEN Performed By: #### 2 4323-8, LIPB, , 3 ####[facility]ORYCLIA [id number] [place] [address] Bilirubin [Mass/Vol] 0.3 mg/dL Normal 0.2-1.3 [facility] Comment on above: Order Comment: Speci men Type: BLOOD SPECIMEN Performed By: #### 2 4323-8, LIPB, , 3 ####[facility]ORYCLIA [id number] [place] [address] Calcium [Mass/Vol] 9.3 mg/dL Normal 8.5-10.2 [facility] Comment on above: Order Comment: Speci men Type: BLOOD SPECIMEN Performed By: #### 2 4323-8, LIPB, , 3 ####[facility]ORYCLIA [id number] [place] [address] Chloride [Moles/Vol] 105 mmol/L Normal 97-105 [facility] Comment on above: Order Comment: Speci men Type: BLOOD SPECIMEN Performed By: #### 2 4323-8, LIPB, , 3015-3 ####[facility]ORYCLIA [id number] [place] [address] CO2 [Moles/Vol] 24 mmol/L Normal 22-30 [facility] Comment on above: Order Comment: Speci men Type: BLOOD SPECIMEN Performed By: #### 2 4323-8, LIPB, , 3 ####[facility]ORATORYCLIA [id number] [place] [address] Creatinine [Mass/Vol] 0.97 mg/dL Normal 0.73-1.22 [facility] Comment on above: Order Comment: Speci men Type: BLOOD SPECIMEN Performed By: #### 2 4323-8, LIPB, , 3015-06 ####[facility]ORATORYCLIA [id number] [place] [address] GFR/1.73 sq M.predicted MDRD (S/P/Bld) [Vol rate/Area] mL/min/{1.73_m2} Normal [facility] Comment on above: Order Comment: Speci men Type: BLOOD SPECIMEN Result Comment: >60e GFR (Estimated GFR) Units of measure: mL/min/1.73 meters squaredeGFR is derived from the reexpressed MDRD Study equation using the following parameters: serum creatinine, age, gender and race. The creatinine assay has been calibrated to be traceable to IDMS. An eGFR <60 mL/min/1.73m2 for >3 months is consistent with chronic kidney disease. Refer to KDOQI guidelines for clinical interpretation. In patients with unstable renal function, e.g. those with acute kidney injury, the eGFR may not accurately reflect actual GFR. Performed By: #### 2 4323-8, LIPB, , 3 ####[facility]ATORYCLIA [id number] [place] [address] Glucose [Mass/Vol] 100 mg/dL High 74-99 [facility] Comment on above: Order Comment: Speci men Type: BLOOD SPECIMEN Result Comment: The [place] Diabetes Association (ADA) provides guidance for cutoff values for fasting glucose and random glucose. The ADA defines fasting as no caloric intake for at least 8 hours. Fasting plasma glucose results between 100 to 125 mg/dL indicate increased risk for diabetes (prediabetes).Fasting plasma glucose results greater than or equal to 126 mg/dL meet the criteria for diagnosis of diabetes. In the absence of unequivocal hyperglycemia, results should be confirmed by repeat testing. In a patient with classic symptoms of hyperglycemia or hyperglycemic crisis, random plasma glucose results greater than or equal to 200 mg/dL meet the criteria for diagnosis of diabetes.Reference: Standards of Medical Care in Diabetes 2016, [place] [employer]. Diabetes Care. 2016.39(Suppl 1). Performed By: #### 2 4323-8, LIPB, , 6-3 ####[facility]ORYCLIA [id number] [place] [address] Potassium [Moles/Vol] 4.5 mmol/L Normal 3.7-5.1 [facility] Comment on above: Order Comment: Speci men Type: BLOOD SPECIMEN Performed By: #### 2 4323-8, LIPB, , 3015-3 ####[facility]ORATORYCLIA [id number] [place] [address] Protein [Mass/Vol] 6.9 g/dL Normal 6.3-8.0 [facility] Comment on above: Order Comment: Speci men Type: BLOOD SPECIMEN Performed By: #### 2 4323-8, LIPB, , 6-3 ####[facility]ORYCLIA [id number] [place] [address] Sodium [Moles/Vol] 137 mmol/L Normal 136-144 [facility] Comment on above: Order Comment: Speci men Type: BLOOD SPECIMEN Performed By: #### 2 4323-8, LIPB, , 3015-3 ####[facility]ORYCLIA [id number] [place] [address] Urea nitrogen [Mass/Vol] 16 mg/dL Normal 9-24 [facility] Comment on above: Order Comment: Speci men Type: BLOOD SPECIMEN Performed By: #### 2 4323-8, LIPB, , 6-3 ####[facility]ORYCLIA [id number] [place] [address] LIPID PANEL BASICon 10-20-19 21 Cholesterol [Mass/Vol] 166 mg/dL Normal <200 [facility] Comment on above: Order Comment: Speci men Type: BLOOD SPECIMEN Result Comment: <200 mg/dL, Desirable 200-239 mg/dL, Borderline high>239 mg/dL, High Performed By: #### 2 4323-8, LIPB, , 3015-06 ####[facility]ATORYCLIA [id number] [place] [address] Cholesterol in HDL [Mass/Vol] 38 mg/dL Low >39 [facility] Comment on above: Order Comment: Speci men Type: BLOOD SPECIMEN Result Comment: 40-5 9 mg/dL, Acceptable>59 mg/dL, High: Negative risk factor for coronary heart disease<40 mg/dL, Low: Positive risk factor for coronary heart disease Performed By: #### 2 4323-8, LIPB, , 3015-06 ####[facility]ATORYCLIA [id number] [place] [address] Cholesterol in LDL [Mass/Vol] 102 mg/dL High <100 [facility] Comment on above: Order Comment: Speci men Type: BLOOD SPECIMEN Result Comment: <100 mg/dL, Optimal 100-129 mg/dL, Near optimal/above optimal 130-159 mg/dL, Borderline high 160-189 mg/dL, High>189 mg/dL, Very highSecondary prevention optimal LDL Cholesterol levels are recommended to be < 70 mg/dL Performed By: #### 2 4323-8, LIPB, , 3 ####[facility]ATORYCLIA [id number] [place] [address] Cholesterol in LDL/Cholesterol in HDL [Mass ratio] 2.68 {ratio} High <2.54 [facility] Comment on above: Order Comment: Spec men Type: BLOOD SPECIMEN Result Comment: Iglesia carpenter:1. National Cholesterol Education Program ATP III Guideline At-A-Glance Quick Desk Reference: National Heart, Lung, and Blood [place]. National Institutes of Health. 2001: NIH Publication No. 01-3305.2. An International Atherosclerosis Society position paper: global recommendations for the management of dyslipidemia: executive summary, Atherosclerosis. 2014: 232(2):410-413. Performed By: #### 2 4323-8, LIPB, 97868-1, 3015-3 ####[facility]ORYCLIA [id number] [place] [address] Cholesterol in VLDL [Mass/Vol] 26 mg/dL Normal <30 [facility] Comment on above: Order Comment: Speci men Type: BLOOD SPECIMEN Performed By: #### 2 4323-8, LIPB, , 3015-3 ####[facility]ATORYCLIA [id number] [place] [address] Cholesterol non HDL [Mass/Vol] 128 mg/dL Normal <130 [facility] Comment on above: Order Comment: Speci men Type: BLOOD SPECIMEN Result Comment: <130 mg/dL, Optimal 130-159 mg/dL, Near optimal/above optimal 160-189 mg/dL, Borderline high 190-219 mg/dL, High>219 mg/dL, Very highSecondary prevention optimal non HDL Cholesterol levels are recommended to be <100 mg/dL Performed By: #### 2 4323-8, LIPB, , 3015-3 ####[facility]ATORYCLIA [id number] [place] [address] Cholesterol.total/Ch olesterol in HDL [Mass ratio] 4.37 {ratio} Normal <5.10 [facility] Comment on above: Order Comment: Speci men Type: BLOOD SPECIMEN Performed By: #### 2 4323-8, LIPB, , 3015-3 ####[facility]ATORYCLIA [id number] [place] [address] FASTING TIME 10 hrs Normal [facility] Comment on above: Order Comment: Speci men Type: BLOOD SPECIMEN Performed By: #### 2 4323-8, LIPB, , 3015-3 ####[facility]ORYCLIA [id number] [place] [address] Triglyceride [Mass/Vol] 128 mg/dL Normal <150 [facility] Comment on above: Order Comment: Speci men Type: BLOOD SPECIMEN Result Comment: <150 mg/dL, Normal 150-199 mg/dL, Borderline high 200-499 mg/dL, High>499 mg/dL, Very high Performed By: #### 2 4323-8, LIPB, 78584-9, 6-3 ####[facility]ATORYCLIA [id number] [place] [address] Magnesium SerPl-mCncon 10-19 Magnesium [Mass/Vol] 2.2 mg/dL Normal 1.7-2.3 [facility] Comment on above: Order Comment: Speci men Type: BLOOD SPECIMEN Performed By: #### 2 4323-8, LIPB, 91879-9, 6-3 ####[facility]ATORYCLIA [id number] [place] [address] NURSING PROGon 10-19-2020 NURSING PROG Normal [facility] TOX SCREEN ROUT URon 021 Amphetamines Confirm (U) [Mass/Vol] Negative Normal Negative [facility] Comment on above: Order Comment: Speci men Type: URINE SPECIMEN Result Comment: Cuto ff threshold at 1000 ng/mL. Performed By: #### U TOX2 ####[facility]ATORYCLIA [id number] [place] [address] BARBITURATES, URINE Negative Normal Negative [facility] Comment on above: Order Comment: Speci men Type: URINE SPECIMEN Result Comment: Cuto ff threshold at 200 ng/mL. Performed By: #### U TOX2 ####[facility]ATORYCLIA [id number] [place] [address] BENZODIAZEPINES, UR Negative Normal Negative [facility] Comment on above: Order Comment: Speci men Type: URINE SPECIMEN Result Comment: Cuto ff threshold at 200 ng/mL. Performed By: #### U TOX2 ####[facility]ATORYCLIA [id number] [place] [address] CANNABINOIDS,URINE Negative Normal Negative [facility] Comment on above: Order Comment: Speci men Type: URINE SPECIMEN Result Comment: Cuto ff threshold at 50 ng/mL. Performed By: #### U TOX2 ####[facility]ORYCLIA [id number] [place] [address] Cocaine Ql (U) Negative Normal Negative [facility] Comment on above: Order Comment: Speci men Type: URINE SPECIMEN Result Comment: Cuto ff threshold at 300 ng/mL. Performed By: #### U TOX2 ####[facility]ATORYCLIA [id number] [place] [address] Ethanol (U) [Mass/Vol] <11 Normal <11 [facility] Comment on above: Order Comment: Speci men Type: URINE SPECIMEN Performed By: #### U TOX2 ####[facility] LABORATORYCLIA [id number] [place] [address] Opiates Screen Ql (U) Negative Normal Negative [facility] Comment on above: Order Comment: Speci men Type: URINE SPECIMEN Result Comment: Cuto ff threshold at 300 ng/mL. Performed By: #### U TOX2 ####[facility] LABORATORYCLIA [id number] [place] [address] oxyCODONE cutoff Screen (U) [Mass/Vol] Negative Normal Negative [facility] Comment on above: Order Comment: Speci men Type: URINE SPECIMEN Result Comment: Cuto ff threshold at 100 ng/mL. Performed By: #### U TOX2 ####[facility] LABORATORYCLIA [id number] [place] [address] Phencyclidine Ql (U) Negative Normal Negative [facility] Comment on above: Order Comment: Speci men Type: URINE SPECIMEN Result Comment: Cuto ff threshold at 25 ng/mL. Performed By: #### U TOX2 ####[facility]ATORYCLIA [id number] [place] [address] TSH SerPl-aCncon 10-19-2020 TSH Qn 2.690 m[IU]/L Normal 0.270-4.200 [facility] Comment on above: Order Comment: Speci men Type: BLOOD SPECIMEN Performed By: #### 2 4323-8, LIPB, 59289-0, 3016-3 ####[facility]ATORYCLIA [id number] [place] [address] UA WITH CULTURE IF INDICATED on 10-19-2020 Bacteria LM.HPF (Urine sed) [#/Area] None Seen Normal None Seen [facility] Comment on above: Order Comment: Speci men Type: URINE SPECIMEN Performed By: #### U ACII ####[facility] LABORATORYCLIA [id number] [place] [address] Bilirubin Ql (U) Negative Normal Negative [facility] Comment on above: Order Comment: Speci men Type: URINE SPECIMEN Performed By: #### U ACII ####[facility] LABORATORYCLIA [id number] [place] [address] Clarity (Unsp spec) Clear Normal Clear [facility] Comment on above: Order Comment: Speci men Type: URINE SPECIMEN Performed By: #### U ACII ####[facility] LABORATORYCLIA [id number] [place] [address] Color (U) Yellow Normal Yellow [facility] Comment on above: Order Comment: Speci men Type: URINE SPECIMEN Performed By: #### U ACII ####[facility] LABORATORYCLIA [id number] [place] [address] Epithelial cells LM.HPF (Urine sed) [#/Area] 0.5 /[HPF] Normal [facility] Comment on above: Order Comment: Speci men Type: URINE SPECIMEN Performed By: #### U ACII ####[facility] LABORATORYCLIA [id number] [place] [address] Glucose Test strip (U) [Mass/Vol] Negative Normal Negative [facility] Comment on above: Order Comment: Speci men Type: URINE SPECIMEN Performed By: #### U ACII ####[facility]ORATORYCLIA [id number] [place] [address] Hemoglobin Ql (U) Negative Normal Negative [facility] Comment on above: Order Comment: Speci men Type: URINE SPECIMEN Performed By: #### U ACII ####[facility] LABORATORYCLIA [id number] [place] [address] Hyaline casts (Urine sed) [#/Area] 0 /[LPF] Normal 0 /LPF [facility] Comment on above: Order Comment: Speci men Type: URINE SPECIMEN Performed By: #### U ACII ####[facility] LABORATORYCLIA [id number] [place] [address] Ketones Ql (U) Negative Normal Negative [facility] Comment on above: Order Comment: Speci men Type: URINE SPECIMEN Performed By: #### U ACII ####[facility]ORATORYCLIA [id number] [place] [address] Leukocyte esterase Test strip Ql (U) Negative Normal Negative [facility] Comment on above: Order Comment: Speci men Type: URINE SPECIMEN Performed By: #### U ACII ####[facility]ORATORYCLIA [id number] [place] [address] Nitrite Ql (U) Negative Normal Negative [facility] Comment on above: Order Comment: Speci men Type: URINE SPECIMEN Performed By: #### U ACII ####[facility]ORATORYCLIA [id number] [place] [address] pH (U) 6.5 [pH] Normal 5.0-8.0 [facility] Comment on above: Order Comment: Speci men Type: URINE SPECIMEN Performed By: #### U ACII ####[facility] LABORATORYCLIA [id number] [place] [address] Protein (U) [Mass/Vol] Negative Normal Negative [facility] Comment on above: Order Comment: Speci men Type: URINE SPECIMEN Performed By: #### U ACII ####[facility] LABORATORYCLIA [id number] [place] [address] RBC LM.HPF (Urine sed) [#/Area] 0-3 /HPF Normal 0-3 /HPF [facility] Comment on above: Order Comment: Speci men Type: URINE SPECIMEN Performed By: #### U ACII ####[facility]ATORYCLIA [id number] [place] [address] Specific gravity (U) [Rel density] 1.015 Normal 1.005-1.030 [facility] Comment on above: Order Comment: Speci men Type: URINE SPECIMEN Performed By: #### U ACII ####[facility] LABORATORYCLIA [id number] [place] [id number] Urobilinogen Ql (U) 0.2 EU/dL Normal 0.2-1.0 EU/dL [facility] Comment on above: Order Comment: Speci men Type: URINE SPECIMEN Performed By: #### U ACII ####[facility]ORATORYCLIA [id number] [place] [address] WBC LM.HPF (Urine sed) [#/Area] 0-5 /HPF Normal 0-5 /HPF [facility] Comment on above: Order Comment: Speci men Type: URINE SPECIMEN Performed By: #### U ACII ####[facility]ORATORYCLIA [id number] [place] [address] VALPROIC A/DEPAKENEon 2020 Valproate [Mass/Vol] 83.4 ug/mL Normal 50.0-100.0 [facility] Comment on above: Order Comment: Speci men Type: BLOOD SPECIMEN Result Comment: Refe rence ranges and high/low indicator flags are provided as general guidelines only. The treating physician must determine appropriate target levels/dosing based on the specific clinical situation. Performed By: #### V PA ####[facility] LABORATORYCLIA [id number] [place] [address] CASE MANAGEMon 10-18-2020 CASE MANAGEM Normal [facility] CONSULT PROGon 10-18-2020 CONSULT PROG Normal [facility] NURSING PROGon 10-18-2020 NURSING PROG Normal [facility] NURSING PROG Normal [facility] NURSING PROG Normal [facility] CASE MANAGEMon 10-17-2020 CASE MANAGEM Normal [facility] NURSING PROGon 10-17-2020 NURSING PROG Normal [facility] NURSING PROG Normal [facility] NURSING PROG Normal [facility] CASE MANAGEMon 10-16-2020 CASE MANAGEM Normal [facility] NURSING PROGon 10-16-2020 NURSING PROG Normal [facility] [place] [facility] NURSING PROG Normal [facility] [place] [facility] NURSING PROG Normal [facility] NURSING PROGon 10-15-2020 NURSING PROG Normal [facility] NURSING PROG Normal [facility] [place] [facility] NURSING PROGon 10-14-2020 NURSING PROG Normal [facility] [place] [facility] NURSING PROGon 10-13-2020 NURSING PROG Normal [facility] [place] [facility] NURSING PROG Normal [facility] NURSING PROG Normal [facility] [place] [facility] CASE MANAGEMon 10-12-2020 CASE MANAGEM Normal [facility] [place] [facility] NURSING PROGon 10-12-2020 NURSING PROG Normal [facility] [place] [facility] NURSING PROG Normal [facility] NURSING PROG Normal [facility] NURSING PROG Normal [facility] NURSING PROG Normal [facility] NURSING PROGon 10-11-2020 NURSING PROG Normal [facility] [place] [facility] NURSING PROG Normal [facility] CASE MANAGEMon 10-10-2020 CASE MANAGEM Normal [facility] [place] [facility] NURSING PROGon 10-10-2020 NURSING PROG Normal [facility] [place] [facility] NURSING PROG Normal [facility] [place] [facility] NURSING PROG Normal [facility] CONSULT PROGon 10-09-2020 CONSULT PROG Normal [facility] CONSULT PROG Normal [facility] NURSING PROGon 10-09-2020 NURSING PROG Normal [facility] [place] [facility] NURSING PROG Normal [facility] [place] [facility] NURSING PROGon 10-08-2020 NURSING PROG Normal [facility] [place] NURSING PROG Normal [facility] NURSING PROG Normal [facility] NURSING PROG Normal [facility] NURSING PROGon 10-07-2020 NURSING PROG Normal [facility] CASE MANAGEMon 10-06-2020 CASE MANAGEM Normal [facility] NURSING PROGon 10-06-2020 NURSING PROG Normal [facility] NUTRITIONon 10-06-2020 NUTRITION Normal [facility] NURSING PROGon 10-05-2020 NURSING PROG Normal [facility] [place] [facility] CONSULT PROGon 10-04-2020 CONSULT PROG Normal [facility] NURSING PROGon 10-04-2020 NURSING PROG Normal [facility] [place] [facility] NURSING PROG Normal [facility] NURSING PROG Normal [facility] [place] [facility] CONSULTon 10-03-2020 CONSULT Normal [facility] NURSING PROGon 10-03-2020 NURSING PROG Normal [facility] [place] [facility] NURSING PROG Normal [facility] NURSING PROG Normal [facility] ALLIED HEALTHon 10-02-2020 ALLIED HEALTH Normal [facility] CASE MANAGEMon 10-02-2020 CASE MANAGEM Normal [facility] CONSULT PROGon 10-02-2020 CONSULT PROG Normal [facility] NURSING PROGon 10-02-2020 NURSING PROG Normal [facility] NURSING PROG Normal [facility] NURSING PROGon 10-01-2020 NURSING PROG Normal [facility] NURSING PROG Normal [facility] NURSING PROGon 09-30-2020 NURSING PROG Normal [facility] NURSING PROG Normal [facility] NURSING PROG Normal [facility] CONSULT PROGon 09-29-2020 CONSULT PROG Normal [facility] NURSING PROGon 09-29-2020 NURSING PROG Normal [facility] NURSING PROG Normal [facility] CONSULT PROGon 09-28-2020 CONSULT PROG Normal [facility] NURSING PROGon 09-28-2020 NURSING PROG Normal [facility] NURSING PROG Normal [facility] [place] [facility] NURSING PROG Normal [facility] CASE MANAGEMon 09-27-2020 CASE MANAGEM Normal [facility] CONSULT PROGon 09-27-2020 CONSULT PROG Normal [facility] NURSING PROGon 09-27-2020 NURSING PROG Normal [facility] NURSING PROG Normal [facility] CONSULT PROGon 09-26-2020 CONSULT PROG Normal [place] [facility] NURSING PROGon 06-22-2021 NURSING PROG Normal [facility] NURSING PROG Normal [facility] NURSING PROG Normal [facility] NURSING PROG Normal [facility] Ammonia Plas-sCncon 09-26-19 Ammonia (P) [Moles/Vol] 53 umol/L Normal 16-60 [facility] Comment on above: Order Comment: Speci men Type: BLOOD SPECIMEN Performed By: #### 1 6362-6 ####[facility]ATORYCLIA [id number] [place] [address] CASE MANAGEMon 09-25-2020 CASE MANAGEM Normal [facility] CBC W Auto Differential pane l (Bld)on 09-25-2020 Basophils (Bld) [#/Vol] 0.03 10*3/uL Normal <0.11 [facility] Comment on above: Order Comment: Speci men Type: BLOOD SPECIMEN Performed By: #### 5 7021-8 ####[facility]ORYCLIA [id number] [place] [address] Basophils/100 WBC (Bld) 0.4 % Normal [facility] Comment on above: Order Comment: Speci men Type: BLOOD SPECIMEN Performed By: #### 5 7021-8 ####[facility]ORYCLIA [id number] [place] [address] Differential cell count method Nom (Bld) Auto Normal [facility] Comment on above: Order Comment: Speci men Type: BLOOD SPECIMEN Performed By: #### 5 7021-8 ####[facility]ORYCLIA [id number] [place] [address] Eosinophils (Bld) [#/Vol] 0.11 10*3/uL Normal <0.46 [facility] Comment on above: Order Comment: Speci men Type: BLOOD SPECIMEN Performed By: #### 5 7021-8 ####[facility]ATORYCLIA [id number] [place] [address] Eosinophils/100 WBC (Bld) 1.5 % Normal [facility] Comment on above: Order Comment: Speci men Type: BLOOD SPECIMEN Performed By: #### 5 7021-8 ####[facility]ATORYCLIA [id number] [place] [address] Erythrocyte distribution width (RBC) [Ratio] 12.1 % Normal 11.5-15.0 [facility] Comment on above: Order Comment: Speci men Type: BLOOD SPECIMEN Performed By: #### 5 7021-8 ####[facility]ATORYCLIA [id number] [place] [address] Hematocrit (Bld) [Volume fraction] 38.1 % Low 39.0-51.0 [facility] Comment on above: Order Comment: Speci men Type: BLOOD SPECIMEN Performed By: #### 5 7021-8 ####[facility]ATORYCLIA [id number] [place] [address] Hemoglobin (Bld) [Mass/Vol] 12.5 g/dL Low 13.0-17.0 [facility] Comment on above: Order Comment: Speci men Type: BLOOD SPECIMEN Performed By: #### 5 7021-8 ####[facility]ORYCLIA [id number] [place] [address] IMMATURE GRAN % 0.3 % Normal [facility] Comment on above: Order Comment: Speci men Type: BLOOD SPECIMEN Performed By: #### 5 7021-8 ####[facility]ATORYCLIA [id number] [place] [address] IMMATURE GRAN ABS <0.03 Normal <0.10 [facility] Comment on above: Order Comment: Speci men Type: BLOOD SPECIMEN Performed By: #### 5 7021-8 ####[facility]ATORYCLIA [id number] [place] [address] Lymphocytes (Bld) [#/Vol] 1.41 10*3/uL Normal 1.00-4.00 [facility] Comment on above: Order Comment: Speci men Type: BLOOD SPECIMEN Performed By: #### 5 7021-8 ####[facility]ATORYCLIA [id number] [place] [address] Lymphocytes/100 WBC (Bld) 19.3 % Normal [facility] Comment on above: Order Comment: Speci men Type: BLOOD SPECIMEN Performed By: #### 5 7021-8 ####[facility] LABORATORYCLIA [id number] [place] [address] MCH (RBC) [Entitic mass] 30.8 pg Normal 26.0-34.0 [facility] Comment on above: Order Comment: Speci men Type: BLOOD SPECIMEN Performed By: #### 5 7021-8 ####[facility]ORATORYCLIA [id number] [place] [address] MCHC (RBC) [Mass/Vol] 32.8 g/dL Normal 30.5-36.0 [facility] Comment on above: Order Comment: Speci men Type: BLOOD SPECIMEN Performed By: #### 5 7021-8 ####[facility] LABORATORYCLIA [id number] [place] [address] MCV (RBC) [Entitic vol] 93.8 fL Normal 80.0-100.0 [facility] Comment on above: Order Comment: Speci men Type: BLOOD SPECIMEN Performed By: #### 5 7021-8 ####[facility]ORATORYCLIA [id number] [place] [address] Monocytes (Bld) [#/Vol] 0.77 10*3/uL Normal <0.87 [facility] Comment on above: Order Comment: Speci men Type: BLOOD SPECIMEN Performed By: #### 5 7021-8 ####[facility]ORATORYCLIA [id number] [place] [address] Monocytes/100 WBC (Bld) 10.5 % Normal [facility] Comment on above: Order Comment: Speci men Type: BLOOD SPECIMEN Performed By: #### 5 7021-8 ####[facility]ORYCLIA [id number] [place] [address] Neutrophils (Bld) [#/Vol] 4.98 10*3/uL Normal 1.45-7.50 [facility] Comment on above: Order Comment: Speci men Type: BLOOD SPECIMEN Performed By: #### 5 7021-8 ####[facility]ORYCLIA [id number] [place] [address] Neutrophils/100 WBC (Bld) 68.0 % Normal [facility] Comment on above: Order Comment: Speci men Type: BLOOD SPECIMEN Performed By: #### 5 7021-8 ####[facility]ORYCLIA [id number] [place] [address] Nucleated RBC (Bld) [#/Vol] 10*3/uL Normal <0.01 [facility] Comment on above: Order Comment: Speci men Type: BLOOD SPECIMEN Performed By: #### 5 7021-8 ####[facility]ORYCLIA [id number] [place] [address] Nucleated RBC/100 WBC (Bld) [Ratio] 0.0 /100 WBC Normal 0.0 [facility] Comment on above: Order Comment: Speci men Type: BLOOD SPECIMEN Performed By: #### 5 7021-8 ####[facility]ORYCLIA [id number] [place] [address] Platelet mean volume (Bld) [Entitic vol] 10.7 fL Normal 9.0-12.7 [facility] Comment on above: Order Comment: Speci men Type: BLOOD SPECIMEN Performed By: #### 5 7021-8 ####[facility]ATORYCLIA [id number] [place] [address] Platelets (Bld) [#/Vol] 171 10*3/uL Normal 150-400 [facility] Comment on above: Order Comment: Speci men Type: BLOOD SPECIMEN Performed By: #### 5 7021-8 ####[facility]ORYCLIA [id number] [place] [address] RBC (Bld) [#/Vol] 4.06 10*6/uL Low 4.20-6.00 [facility] Comment on above: Order Comment: Speci men Type: BLOOD SPECIMEN Performed By: #### 5 7021-8 ####[facility]ORYCLIA [id number] [place] [address] WBC (Bld) [#/Vol] 7.32 10*3/uL Normal 3.70-11.00 [facility] Comment on above: Order Comment: Speci men Type: BLOOD SPECIMEN Performed By: #### 5 7021-8 ####[facility]ATORYCLIA [id number] [place] [address] Comprehensive metabolic 2000 panelon 09-25-2020 Albumin [Mass/Vol] 4.2 g/dL Normal 3.9-4.9 [facility] Comment on above: Order Comment: Speci men Type: BLOOD SPECIMEN Performed By: #### 2 4323-8 ####[facility]ATORYCLIA [id number] [place] [address] ALP [Catalytic activity/Vol] 55 U/L Normal 38-113 [facility] Comment on above: Order Comment: Speci men Type: BLOOD SPECIMEN Performed By: #### 2 4323-8 ####[facility]ATORYCLIA [id number] [place] [address] ALT With P-5'-P [Catalytic activity/Vol] 29 U/L Normal 10-54 [facility] Comment on above: Order Comment: Speci men Type: BLOOD SPECIMEN Performed By: #### 2 4323-8 ####[facility]ATORYCLIA [id number] [place] [address] Anion gap [Moles/Vol] 11 mmol/L Normal 9-18 [facility] Comment on above: Order Comment: Speci men Type: BLOOD SPECIMEN Performed By: #### 2 4323-8 ####[facility]ORYCLIA [id number] [place] [address] AST With P-5'-P [Catalytic activity/Vol] 31 U/L Normal 14-40 [facility] Comment on above: Order Comment: Speci men Type: BLOOD SPECIMEN Performed By: #### 2 4323-8 ####[facility]ATORYCLIA [id number] [place] [address] Bilirubin [Mass/Vol] 0.2 mg/dL Normal 0.2-1.3 [facility] Comment on above: Order Comment: Speci men Type: BLOOD SPECIMEN Performed By: #### 2 4323-8 ####[facility] LABORATORYCLIA [id number] [place] [address] Calcium [Mass/Vol] 9.7 mg/dL Normal 8.5-10.2 [facility] Comment on above: Order Comment: Speci men Type: BLOOD SPECIMEN Performed By: #### 2 4323-8 ####[facility] LABORATORYCLIA [id number] [place] [address] Chloride [Moles/Vol] 103 mmol/L Normal 97-105 [facility] Comment on above: Order Comment: Speci men Type: BLOOD SPECIMEN Performed By: #### 2 4323-8 ####[facility] LABORATORYCLIA [id number] [place] [address] CO2 [Moles/Vol] 22 mmol/L Normal 22-30 [facility] Comment on above: Order Comment: Speci men Type: BLOOD SPECIMEN Performed By: #### 2 4323-8 ####[facility] LABORATORYCLIA [id number] [place] [address] Creatinine [Mass/Vol] 0.90 mg/dL Normal 0.73-1.22 [facility] Comment on above: Order Comment: Speci men Type: BLOOD SPECIMEN Performed By: #### 2 4323-8 ####[facility] LABORATORYCLIA [id number] [place] [address] GFR/1.73 sq M.predicted MDRD (S/P/Bld) [Vol rate/Area] mL/min/{1.73_m2} Normal [facility] Comment on above: Order Comment: Speci men Type: BLOOD SPECIMEN Result Comment: >60e GFR (Estimated GFR) Units of measure: mL/min/1.73 meters squaredeGFR is derived from the reexpressed MDRD Study equation using the following parameters: serum creatinine, age, gender and race. The creatinine assay has been calibrated to be traceable to IDMS. An eGFR <60 mL/min/1.73m2 for >3 months is consistent with chronic kidney disease. Refer to KDOQI guidelines for clinical interpretation. In patients with unstable renal function, e.g. those with acute kidney injury, the eGFR may not accurately reflect actual GFR. Performed By: #### 2 4323-8 ####[facility] LABORATORYCLIA [id number] [place] [address] Glucose [Mass/Vol] 114 mg/dL High 74-99 [facility] Comment on above: Order Comment: Speci men Type: BLOOD SPECIMEN Result Comment: The [place] [employer] (ADA) provides guidance for cutoff values for fasting glucose and random glucose. The ADA defines fasting as no caloric intake for at least 8 hours. Fasting plasma glucose results between 100 to 125 mg/dL indicate increased risk for diabetes (prediabetes).Fasting plasma glucose results greater than or equal to 126 mg/dL meet the criteria for diagnosis of diabetes. In the absence of unequivocal hyperglycemia, results should be confirmed by repeat testing. In a patient with classic symptoms of hyperglycemia or hyperglycemic crisis, random plasma glucose results greater than or equal to 200 mg/dL meet the criteria for diagnosis of diabetes.Reference: Standards of Medical Care in Diabetes 2016, [place] [employer]. Diabetes Care. 2016.39(Suppl 1). Performed By: #### 2 4323-8 ####[facility] LABORATORYCLIA [id number] [place] [address] Potassium [Moles/Vol] 4.1 mmol/L Normal 3.7-5.1 [facility] Comment on above: Order Comment: Speci men Type: BLOOD SPECIMEN Performed By: #### 2 4323-8 ####[facility] LABORATORYCLIA [id number] [place] [address] Protein [Mass/Vol] 7.0 g/dL Normal 6.3-8.0 [facility] Comment on above: Order Comment: Speci men Type: BLOOD SPECIMEN Performed By: #### 2 4323-8 ####[facility]ORATORYCLIA [id number] [place] [address] Sodium [Moles/Vol] 136 mmol/L Normal 136-144 [facility] Comment on above: Order Comment: Speci men Type: BLOOD SPECIMEN Performed By: #### 2 4323-8 ####[facility]ORATORYCLIA [id number] [place] [address] Urea nitrogen [Mass/Vol] 20 mg/dL Normal 9-24 [facility] Comment on above: Order Comment: Speci men Type: BLOOD SPECIMEN Performed By: #### 2 4323-8 ####[facility] LABORATORYCLIA [id number] [place] [address] NURSING PROGon 09-25-2020 NURSING PROG Normal [facility] NURSING PROG Normal [facility] NUTRITIONon 09-25-2020 NUTRITION Normal [facility] UA WITH CULTURE IF INDICATED on 09-25-2020 Bacteria LM.HPF (Urine sed) [#/Area] None Seen Normal None Seen [facility] Comment on above: Order Comment: Speci men Type: URINE SPECIMEN Performed By: #### U ACII ####[facility] LABORATORYCLIA [id number] [place] [address] Bilirubin Ql (U) Negative Normal Negative [facility] Comment on above: Order Comment: Speci men Type: URINE SPECIMEN Performed By: #### U ACII ####[facility] LABORATORYCLIA [id number] [place] [address] Clarity (Unsp spec) Cloudy Abnormal Clear [facility] Comment on above: Order Comment: Speci men Type: URINE SPECIMEN Performed By: #### U ACII ####[facility] LABORATORYCLIA [id number] [place] [address] Color (U) Yellow Normal Yellow [facility] Comment on above: Order Comment: Speci men Type: URINE SPECIMEN Performed By: #### U ACII ####[facility] LABORATORYCLIA [id number] [place] [address] Epithelial cells LM.HPF (Urine sed) [#/Area] 0.4 /[HPF] Normal [facility] Comment on above: Order Comment: Speci men Type: URINE SPECIMEN Performed By: #### U ACII ####[facility] LABORATORYCLIA [id number] [place] [address] Glucose Test strip (U) [Mass/Vol] Negative Normal Negative [facility] Comment on above: Order Comment: Speci men Type: URINE SPECIMEN Performed By: #### U ACII ####[facility] LABORATORYCLIA [id number] [place] [address] Hemoglobin Ql (U) Negative Normal Negative [facility] Comment on above: Order Comment: Speci men Type: URINE SPECIMEN Performed By: #### U ACII ####[facility] LABORATORYCLIA [id number] [place] [address] Hyaline casts (Urine sed) [#/Area] 0 /[LPF] Normal 0 /LPF [facility] Comment on above: Order Comment: Speci men Type: URINE SPECIMEN Performed By: #### U ACII ####[facility] LABORATORYCLIA [id number] [place] [address] Ketones Ql (U) Trace Abnormal Negative [facility] Comment on above: Order Comment: Speci men Type: URINE SPECIMEN Performed By: #### U ACII ####[facility] LABORATORYCLIA [id number] [place] [address] Leukocyte esterase Test strip Ql (U) Negative Normal Negative [facility] Comment on above: Order Comment: Speci men Type: URINE SPECIMEN Performed By: #### U ACII ####[facility] LABORATORYCLIA [id number] [place] [address] Nitrite Ql (U) Negative Normal Negative [facility] Comment on above: Order Comment: Speci men Type: URINE SPECIMEN Performed By: #### U ACII ####[facility]ORATORYCLIA [id number] [place] [address] pH (U) 6.5 [pH] Normal 5.0-8.0 [facility] Comment on above: Order Comment: Speci men Type: URINE SPECIMEN Performed By: #### U ACII ####[facility]ORATORYCLIA [id number] [place] [address] Protein (U) [Mass/Vol] Negative Normal Negative [facility] Comment on above: Order Comment: Speci men Type: URINE SPECIMEN Performed By: #### U ACII ####[facility] LABORATORYCLIA [id number] [place] [address] RBC LM.HPF (Urine sed) [#/Area] 0-3 /HPF Normal 0-3 /HPF [facility] Comment on above: Order Comment: Speci men Type: URINE SPECIMEN Performed By: #### U ACII ####[facility] LABORATORYCLIA [id number] [place] [id number] Specific gravity (U) [Rel density] 1.025 Normal 1.005-1.030 [facility] Comment on above: Order Comment: Speci men Type: URINE SPECIMEN Performed By: #### U ACII ####[facility] LABORATORYCLIA [id number] [place] [id number] Urobilinogen Ql (U) 0.2 EU/dL Normal 0.2-1.0 EU/dL [facility] Comment on above: Order Comment: Speci men Type: URINE SPECIMEN Performed By: #### U ACII ####[facility] LABORATORYCLIA [id number] [place] [address] WBC LM.HPF (Urine sed) [#/Area] 0-5 /HPF Normal 0-5 /HPF [facility] Comment on above: Order Comment: Speci men Type: URINE SPECIMEN Performed By: #### U ACII ####[facility] LABORATORYCLIA [id number] [place] [address] VALPROIC A/DEPAKENEon 2020 Valproate [Mass/Vol] 48.1 ug/mL Low 50.0-100.0 [facility] Comment on above: Order Comment: Speci men Type: BLOOD SPECIMEN Result Comment: Refe rence ranges and high/low indicator flags are provided as general guidelines only. The treating physician must determine appropriate target levels/dosing based on the specific clinical situation. Performed By: #### V PA ####[facility] LABORATORYCLIA [id number] [place] [address] NURSING PROGon 09-24-2020 NURSING PROG Normal [facility] NURSING PROGon 09-23-2020 NURSING PROG Normal [facility] CONSULT PROGon 09-22-2020 CONSULT PROG Normal [facility] NURSING PROGon 09-22-2020 NURSING PROG Normal [facility] NURSING PROG Normal [facility] NURSING PROG Normal [facility] NURSING PROG Normal [facility] VALPROIC A/DEPAKENEon 2020 Valproate [Mass/Vol] 66.5 ug/mL Normal 50.0-100.0 [facility] Comment on above: Order Comment: Speci men Type: BLOOD SPECIMEN Result Comment: Refe rence ranges and high/low indicator flags are provided as general guidelines only. The treating physician must determine appropriate target levels/dosing based on the specific clinical situation. Performed By: #### V PA ####[facility] LABORATORYCLIA [id number] [address] 09-21-2020 ALLIED HEALTH Normal [facility] NURSING PROGon 09-21-2020 NURSING PROG Normal [facility] ALLIED HEALTHon 09-20-2020 ALLIED HEALTH Normal [facility] CONSULT PROGon 09-20-2020 CONSULT PROG Normal [facility] NURSING PROGon 09-20-2020 NURSING PROG Normal [facility] NURSING PROG Normal [facility] NURSING PROG Normal [facility] NURSING PROG Normal [facility] NURSING PROGon 09-19-2020 NURSING PROG Normal [facility] VALPROIC A/DEPAKENEon 2020 Valproate [Mass/Vol] 50.7 ug/mL Normal 50.0-100.0 [facility] Comment on above: Order Comment: Speci men Type: BLOOD SPECIMEN Result Comment: Refe rence ranges and high/low indicator flags are provided as general guidelines only. The treating physician must determine appropriate target levels/dosing based on the specific clinical situation. Performed By: #### V PA ####[facility] LABORATORYCLIA [id number] [place] [address] CASE MANAGEMon 09-18-2020 CASE MANAGEM Normal [place] [facility] NURSING PROGon 09-18-2020 NURSING PROG Normal [place] NURSING PROGon 09-17-2020 NURSING PROG Normal [place] [facility] NURSING PROGon 09-16-2020 NURSING PROG Normal [place] [facility] NURSING PROG Normal [facility] [place] [facility] ALLIED HEALTHon 09-15-2020 ALLIED HEALTH Normal [facility] CONSULT PROGon 09-15-2020 CONSULT PROG Normal [place] [facility] NURSING PROGon 09-15-2020 NURSING PROG Normal [place] [facility] NURSING PROG Normal [place] [facility] NURSING PROG Normal [place] NURSING PROGon 09-14-2020 NURSING PROG Normal [place] [facility] NURSING PROG Normal [place] [facility] NURSING PROG Normal [facility] NUTRITIONon 09-14-2020 NUTRITION Normal [facility] CASE MANAGEMon 09-13-2020 CASE MANAGEM Normal [place] [facility] CONSULT PROGon 09-13-2020 CONSULT PROG Normal [facility] NURSING PROGon 09-13-2020 NURSING PROG Normal [facility] NURSING PROG Normal [facility] CONSULT PROGon 09-12-2020 CONSULT PROG Normal [place] NURSING PROGon 09-12-2020 NURSING PROG Normal [place] CONSULT PROGon 09-11-2020 CONSULT PROG Normal [facility] NURSING PROGon 09-11-2020 NURSING PROG Normal [place] [facility] NURSING PROG Normal [facility] NURSING PROGon 09-10-2020 NURSING PROG Normal [place] CONSULT PROGon 09-09-2020 CONSULT PROG Normal [facility] NURSING PROGon 09-09-2020 NURSING PROG Normal [place] [facility] CASE MANAGEMon 09-08-2020 CASE MANAGEM Normal [facility] CONSULT PROGon 09-08-2020 CONSULT PROG Normal [place] [facility] NURSING PROGon 09-08-2020 NURSING PROG Normal [place] [facility] NURSING PROG Normal [facility] CASE MANAGEMon 09-07-2020 CASE MANAGEM Normal [place] [facility] CONSULT PROGon 09-07-2020 CONSULT PROG Normal [place] NURSING PROGon 09-07-2020 NURSING PROG Normal [place] [facility] CONSULT PROGon 09-06-2020 CONSULT PROG Normal [place] [facility] NURSING PROGon 09-06-2020 NURSING PROG Normal [place] [facility] NURSING PROG Normal [place] [facility] NUTRITIONon 09-06-2020 NUTRITION Normal [facility] CASE MANAGEMon 09-05-2020 CASE MANAGEM Normal [place] [facility] CONSULT PROGon 09-05-2020 CONSULT PROG Normal [place] [facility] NURSING PROGon 09-05-2020 NURSING PROG Normal [place] [facility] NURSING PROG Normal [place] [facility] NURSING PROG Normal [place] [facility] NURSING PROG Normal [place] [facility] NURSING PROG Normal [place] [facility] NURSING PROG Normal [place] [facility] CONSULT PROGon 09-04-2020 CONSULT PROG Normal [place] [facility] NURSING PROGon 09-04-2020 NURSING PROG Normal [place] [facility] NURSING PROG Normal [place] [facility] NURSING PROGon 09-03-2020 NURSING PROG Normal [place] [facility] NURSING PROG Normal [place] [facility] NURSING PROG Normal [place] [facility] NURSING PROG Normal [place] [facility] NURSING PROG Normal [place] [facility] CONSULT PROGon 09-02-2020 CONSULT PROG Normal [place] [facility] NURSING PROGon 09-02-2020 NURSING PROG Normal [place] [facility] CASE MANAGEMon 09-01-2020 CASE MANAGEM Normal [place] CONSULT PROGon 09-01-2020 CONSULT PROG Normal [place] [facility] NURSING PROGon 09-01-2020 NURSING PROG Normal [place] [facility] NURSING PROG Normal [place] [facility] CONSULT PROGon 08-31-2020 CONSULT PROG Normal [place] [facility] NURSING PROGon 08-31-2020 NURSING PROG Normal [place] [facility] NURSING PROG Normal [facility] CONSULT PROGon 08-30-2020 CONSULT PROG Normal [facility] NURSING PROGon 08-30-2020 NURSING PROG Normal [facility] NURSING PROG Normal [facility] NURSING PROG Normal [facility] ALLIED HEALTHon 08-29-2020 ALLIED HEALTH Normal [facility] CASE MGT INIT ASSESon 2020 CASE MGT INIT ASSES Normal [facility] CONSULTon 08-29-2020 CONSULT Normal [facility] HISTORY PHYSICALon HISTORY PHYSICAL Normal [facility] NURSING PROGon 08-29-2020 NURSING PROG Normal [facility] NURSING PROG Normal [facility] NURSING PROG Normal [facility] ALLIED HEALTHon 09-26-2018 ALLIED HEALTH HNO ID: [id number] Author: Floridalma Jacobson (Rt) Service: ? Author Type: Chicken Catcher Type: [facility] Filed: 09/26/2018 1:53 AM Note Text: Radiology Service Progress Note PATIENT NAME: Thad Mercado DATE OF SERVICE: September 26, 2018 TIME: 1:53 AM PATIENT IDENTITY VERIFICATION COMPLETED USING TWO (2) METHODS: Patient confirmed name verbally and Date of . PATIENT GENDER DATA: Male PATIENT RELEVANT IMPLANT DATA REVIEWED: Not Applicable RADIOLOGY DEPARTMENT: General X-ray: Exam(s) Completed: Chest X-Ray PERIPHERAL IV DATA: Not applicable SIGNED BY: RT Indira September 26, 2018 1:53 AM [facility] HNO ID: [id number] Author: Leslee Aldridge Service: ? Author Type: Multi Operation Machine Operator Type: [facility] Filed: 09/25/2018 11:02 PM Note Text: Radiology Service Progress Note PATIENT NAME: Thad Mercado DATE OF SERVICE: September 25, 2018 TIME: 11:01 PM PATIENT IDENTITY VERIFICATION COMPLETED USING TWO (2) METHODS: Patient confirmed name verbally and ID band matches.. PATIENT GENDER DATA: Male PATIENT RELEVANT IMPLANT DATA REVIEWED: Not Applicable RADIOLOGY DEPARTMENT: Ultrasound PERIPHERAL IV DATA: Not applicable SIGNED BY: Leslee Aldridge RDMS September 25, 2018 11:01 PM [facility] APTTon 09-26-2018 aPTT Coag (Bld) [Time] 38.3 s High 23.0-32.4 [facility] Comment on above: Performed By: #### V BG, LACT, CBCDIF, NTBNP, NH3, CMP, MG1, PHOS, PT, PTT #### [facility] [address] [place] [address] Bilirubin,Conjugatedon 09-26 Bilirubin,Conjugated 1.3 mg/dL High <0.2 [facility] Comment on above: Performed By: #### V BG, LACT, CBCDIF, NTBNP, NH3, CMP, MG1, PHOS, PT, PTT #### [place] [id number] [place] [address] ECG COMPLETEon 09-26-2018 ECG COMPLETE NAME : THAD MERCADO PID : [id number] : 1950 Gender : Male Race : ORD : [id number] Procedure Date : Sep 26 2018 00:51:01 Edit Date : Dec 28 2018 09:36:19 Diagnosis:Sinus tachycardia Right axis deviation Repol abnrm suggests ischemia, diffuse leads Abnormal ECG Confirmed by RIC SANDOVAL M.D. ([id number]) on 12/28/2018 9:36:09 AM Ventricular Rate : 124 BPM Atrial Rate : 124 BPM P-R Interval : 83 ms QRS Duration : 97 ms Q-T Interval : 300 ms QTC Calculation(Bazett) : 431 ms P Hometown : 87 degrees R Hometown : 98 degrees T Hometown : -81 degrees Test Reason : Arrhythmia Location : 400 : FVEKG fvmic Overread By : RIC SANDOVAL M.D. Edited By : RIC SANDOVAL M.D. Referred By : TAMANNA SALCIDO Acquired by : , [facility] Hepatitis Acute Panel * OUTS HEMANT CLIENTS ONLY *on 09-26-2018 HBsAg Negative [place] Negative [facility] Comment on above: Performed By: #### V BG, LACT, CBCDIF, NTBNP, NH3, CMP, MG1, PHOS, PT, PTT #### [place] [id number] [place] [id number] Hep B Core Ab, IgM Negative Normal Negative [facility] Comment on above: Performed By: #### V BG, LACT, CBCDIF, NTBNP, NH3, CMP, MG1, PHOS, PT, PTT #### [place] [address] Hepatitis A Ab IgM Negative Normal Negative [facility] Comment on above: Performed By: #### V BG, LACT, CBCDIF, NTBNP, NH3, CMP, MG1, PHOS, PT, PTT #### [place] [address] Hepatitis C Ab IA Negative Normal Negative [facility] Comment on above: Performed By: #### V BG, LACT, CBCDIF, NTBNP, NH3, CMP, MG1, PHOS, PT, PTT #### [place] [address] Protimeon 09-26-2018 PT Coag (PPP) [Time] 3.1 s High 0.9-1.3 [facility] Comment on above: Performed By: #### V BG, LACT, CBCDIF, NTBNP, NH3, CMP, MG1, PHOS, PT, PTT #### [place] [address] PT Coag (PPP) [Time] 29.5 s High 9.7-13.0 [facility] Comment on above: Performed By: #### V BG, LACT, CBCDIF, NTBNP, NH3, CMP, MG1, PHOS, PT, PTT #### [place] [address] Respiratory Cult/Stainon Respiratory Cult/Stain Smear Result - Rare Mixed oral harleen Rare Polymorphonuclear leukocytes Rare Epithelial cells Culture Result - Few Normal respiratory harleen present Normal [facility] Comment on above: Performed By: #### V BG, LACT, CBCDIF, NTBNP, NH3, CMP, MG1, PHOS, PT, PTT #### [place] [address] Reticulocyteon 09-26-2018 Abs Retic 0.146 M/uL High 0.0180-0.100 0 [facility] Comment on above: Performed By: #### V BG, LACT, CBCDIF, NTBNP, NH3, CMP, MG1, PHOS, PT, PTT #### [place] [id number] Retic% 3.4 % High 0.4-2.0 [facility] Comment on above: Performed By: #### V BG, LACT, CBCDIF, NTBNP, NH3, CMP, MG1, PHOS, PT, PTT #### [place] [address] Staff Rev w CBCDIFon 019 Abs Baso <0.03 Normal <0.11 [facility] Comment on above: Performed By: #### V BG, LACT, CBCDIF, NTBNP, NH3, CMP, MG1, PHOS, PT, PTT #### [place] [address] Abs [place] 1.06 k/uL High <0.87 [facility] Comment on above: Performed By: #### V BG, LACT, CBCDIF, NTBNP, NH3, CMP, MG1, PHOS, PT, PTT #### [id number] Abs Neut 8.48 k/uL High 1.45-7.50 [facility] Comment on above: Performed By: #### V BG, LACT, CBCDIF, NTBNP, NH3, CMP, MG1, PHOS, PT, PTT #### [place] [id number] Basophils/100 WBC (Bld) 0.1 % Normal [facility] Comment on above: Performed By: #### V BG, LACT, CBCDIF, NTBNP, NH3, CMP, MG1, PHOS, PT, PTT #### [place] [phone] Diff Comments SEE COMMENT Normal [facility] Comment on above: Result Comment: See Staff Review Performed By: #### V BG, LACT, CBCDIF, NTBNP, NH3, CMP, MG1, PHOS, PT, PTT #### [place] [address] DTYPE Auto Diff Normal [facility] Comment on above: Performed By: #### V BG, LACT, CBCDIF, NTBNP, NH3, CMP, MG1, PHOS, PT, PTT #### [place] [address] Eosinophils (Bld) [#/Vol] 10*3/uL Normal <0.46 [facility] Comment on above: Performed By: #### V BG, LACT, CBCDIF, NTBNP, NH3, CMP, MG1, PHOS, PT, PTT #### [place] [address] Eosinophils/100 WBC (Bld) 0.1 % Normal [facility] Comment on above: Performed By: #### V BG, LACT, CBCDIF, NTBNP, NH3, CMP, MG1, PHOS, PT, PTT #### [place] [address] Erythrocyte distribution width (RBC) [Ratio] 14.3 % Normal 11.5-15.0 [facility] Comment on above: Performed By: #### V BG, LACT, CBCDIF, NTBNP, NH3, CMP, MG1, PHOS, PT, PTT #### [place] [address] Hematocrit (Bld) [Volume fraction] 40.3 % Normal 39.0-51.0 [facility] Comment on above: Performed By: #### V BG, LACT, CBCDIF, NTBNP, NH3, CMP, MG1, PHOS, PT, PTT #### [place] [address] Hemoglobin (Bld) [Mass/Vol] 13.7 g/dL Normal 13.0-17.0 [facility] Comment on above: Performed By: #### V BG, LACT, CBCDIF, NTBNP, NH3, CMP, MG1, PHOS, PT, PTT #### [place] [id number] Lymphocytes (Bld) [#/Vol] 1.64 10*3/uL Normal 1.00-4.00 [facility] Comment on above: Performed By: #### V BG, LACT, CBCDIF, NTBNP, NH3, CMP, MG1, PHOS, PT, PTT #### [place] [id number] Lymphocytes/100 WBC (Bld) 14.6 % Normal [facility] Comment on above: Performed By: #### V BG, LACT, CBCDIF, NTBNP, NH3, CMP, MG1, PHOS, PT, PTT #### [place] [id number] MCH (RBC) [Entitic mass] 31.4 pG Normal 26.0-34.0 [facility] Comment on above: Performed By: #### V BG, LACT, CBCDIF, NTBNP, NH3, CMP, MG1, PHOS, PT, PTT #### [place] [phone] MCHC (RBC) [Mass/Vol] 34.0 g/dL Normal 30.5-36.0 [facility] Comment on above: Performed By: #### V BG, LACT, CBCDIF, NTBNP, NH3, CMP, MG1, PHOS, PT, PTT #### [place] [id number] MCV (RBC) [Entitic vol] 92.2 fL Normal 80.0-100.0 [facility] Comment on above: Performed By: #### V BG, LACT, CBCDIF, NTBNP, NH3, CMP, MG1, PHOS, PT, PTT #### [place] [phone] Monocytes/100 WBC (Bld) 9.5 % Normal [facility] Comment on above: Performed By: #### V BG, LACT, CBCDIF, NTBNP, NH3, CMP, MG1, PHOS, PT, PTT #### [place] [phone] Neutrophils/100 WBC (Bld) 75.7 % Normal [facility] Comment on above: Performed By: #### V BG, LACT, CBCDIF, NTBNP, NH3, CMP, MG1, PHOS, PT, PTT #### [place] [phone] Pathologist Cyto stain Nom (Cvx/Vag) [ID] Reviewed by Cally Slaughter DO ([id number]) [facility] Comment on above: Performed By: #### V BG, LACT, CBCDIF, NTBNP, NH3, CMP, MG1, PHOS, PT, PTT #### [place] [phone] Platelet mean volume (Bld) [Entitic vol] <> Normal 9.0-12.7 [facility] Comment on above: Performed By: #### V BG, LACT, CBCDIF, NTBNP, NH3, CMP, MG1, PHOS, PT, PTT #### [place] [phone] Platelets (Bld) [#/Vol] 51 10*3/uL Low 150-400 [facility] Comment on above: Result Comment: Plat elet count confirmed by manual review of peripheral blood smear. Sample checked for a clot. Performed By: #### V BG, LACT, CBCDIF, NTBNP, NH3, CMP, MG1, PHOS, PT, PTT #### [place] [phone] RBC (Bld) [#/Vol] 4.37 10*6/uL Normal 4.20-6.00 [facility] Comment on above: Performed By: #### V BG, LACT, CBCDIF, NTBNP, NH3, CMP, MG1, PHOS, PT, PTT #### [place] [phone] Red Cell Morph SEE COMMENT Normal [facility] Comment on above: Result Comment: Slig ht Polychromasia Anisocytosis Few RBC Fragments Performed By: #### V BG, LACT, CBCDIF, NTBNP, NH3, CMP, MG1, PHOS, PT, PTT #### [place] [phone] Staff Review SEE COMMENT Normal [facility] Comment on above: Result Comment: Norm ocytic Anemia With Slight Polychromasia Thrombocytopenia Performed By: #### V BG, LACT, CBCDIF, NTBNP, NH3, CMP, MG1, PHOS, PT, PTT #### [place] [phone] WBC (Bld) [#/Vol] 11.20 10*3/uL High 3.70-11.00 [facility] Comment on above: Performed By: #### V BG, LACT, CBCDIF, NTBNP, NH3, CMP, MG1, PHOS, PT, PTT #### [place] [phone] Thrombograph Panelon 019 Coagulation Index NEG 13 Normal [facility] Comment on above: Performed By: #### V BG, LACT, CBCDIF, NTBNP, NH3, CMP, MG1, PHOS, PT, PTT #### [place] [phone] Degree Angle 19.1 deg Low 47.0-74.0 [facility] Comment on above: Performed By: #### V BG, LACT, CBCDIF, NTBNP, NH3, CMP, MG1, PHOS, PT, PTT #### [place] [phone] Lysis Time 30 0.0 % Normal 0-8 [facility] Comment on above: Performed By: #### V BG, LACT, CBCDIF, NTBNP, NH3, CMP, MG1, PHOS, PT, PTT #### [place] [id number] [place] [address] Maximum Amplitude 29.0 mm Low 51.0-69.0 [facility] Comment on above: Performed By: #### V BG, LACT, CBCDIF, NTBNP, NH3, CMP, MG1, PHOS, PT, PTT #### [place] [phone] R Value 7.7 min Normal 4.0-10.0 [facility] Comment on above: Performed By: #### V BG, LACT, CBCDIF, NTBNP, NH3, CMP, MG1, PHOS, PT, PTT #### [place] [phone] Thrombograph Interp (NOTE) Normal [facility] Comment on above: Result Comment: Perf orming Pathologist: Wanda Hartman Interpretation: Abnormal - see comment below. A thromboelastograph (TEG) study was performed using citrate-anticoagulated whole blood. The R value, a measure of coagulation function, is within the normal range. This indicates normal coagulation function. The Maximal Amplitude (MA), a measure of platelet function, is decreased. This is indicative of platelet hypofunction. The Angle, a measure of fibrinogen function, is decreased. This is indicative of decreased fibrinogen concentration or function. The Ly30, a measure of fibrinolysis function, is normal. This is indicative of normal fibrinolytic function. The Coagulation Index (CI), a measure of hemostasis function, is decreased. The CI is a calculated parameter based on the other TEG results. Performed By: #### V BG, LACT, CBCDIF, NTBNP, NH3, CMP, MG1, PHOS, PT, PTT #### [place] [address] Troponin Ton 09-26-2018 Troponin T.cardiac [Mass/Vol] 0.024 ng/mL Normal 0.000-0.029 [facility] Comment on above: Performed By: #### V BG, LACT, CBCDIF, NTBNP, NH3, CMP, MG1, PHOS, PT, PTT #### [place] [address] US ABD RIGHT UPPER QUADRANTo n 09-26-2018 US ABD RIGHT UPPER QUADRANT * * *Final Report* * * DATE OF EXAM: Sep 25 2018 11:05PM FVU 1032 - US ABD RIGHT UPPER QUADRANT / PROCEDURE REASON: Jaundice, biliary obstruction unlikely * * * * Physician Interpretation * * * * ULTRASOUND OF THE RIGHT UPPER QUADRANT AND THE LEFT UPPER QUADRANT (SPLEEN). TECHNIQUE: Real-time, Grayscale ultrasound of the right upper quadrant and the left upper quadrant with complimentary CINE views when applicable and color Doppler when applicable.Images were obtained and stored in a permanent archive COMPARISON: No relevant prior studies are available for comparison. CLINICAL INDICATION:Jaundice, biliary obstruction unlikely. Adult inpatient presented with jaundice. RESULTS: LIVER: The liver is echogenic in echotexture suggesting hepatic steatosis with no obvious nodular contours. No definite focal hepatic lesions are detected. No intrahepatic biliary dilatation. GALLBLADDER: The gallbladder appears unremarkable. No gallstones are detected. The gallbladder wall measures 1.4 mm which is within the normal limits. Probe Gibbs sign is negative. No pericholecystic fluid. The CBD measures 4.1 mm which is within the normal limits. PANCREAS: The pancreas is obscured with midline bowel gas shadowing./ KIDNEYS: No evidence of hydronephrosis. The maximal length of the right kidney is 10.8 cm. The maximal length of the left kidney is 10.8 cm. Circumscribed, exophytic, cyst noted in the left kidney measuring 1.1 cm SPLEEN: No splenomegaly. The spleen measures 7.2 x 4.7 x 3.2 cm No focal lesions are detected. IMPRESSION: No splenomegaly. No hydronephrosis. No cholelithiasis. Echogenic hepatic parenchyma suggesting hepatic steatosis. Sharepoint Designer Developer: PSCB Transcribe Date/Time: Sep 25 2018 11:23P Dictated by : ANGE MORENO MD This examination was interpreted and the report reviewed and electronically signed by: ANGE MORENO MD on Sep 25 2018 11:49PM EST [id number] Normal [facility] US ABD SPLEENon 09-26-2018 US ABD SPLEEN * * *Final Report* * * DATE OF EXAM: Sep 25 2018 11:05PM FVU 1039 - US ABD SPLEEN / PROCEDURE REASON: Jaundice, biliary obstruction unlikely * * * * Physician Interpretation * * * * ULTRASOUND OF THE RIGHT UPPER QUADRANT AND THE LEFT UPPER QUADRANT (SPLEEN). TECHNIQUE: Real-time, Grayscale ultrasound of the right upper quadrant and the left upper quadrant with complimentary CINE views when applicable and color Doppler when applicable.Images were obtained and stored in a permanent archive COMPARISON: No relevant prior studies are available for comparison. CLINICAL INDICATION:Jaundice, biliary obstruction unlikely. Adult inpatient presented with jaundice. RESULTS: LIVER: The liver is echogenic in echotexture suggesting hepatic steatosis with no obvious nodular contours. No definite focal hepatic lesions are detected. No intrahepatic biliary dilatation. GALLBLADDER: The gallbladder appears unremarkable. No gallstones are detected. The gallbladder wall measures 1.4 mm which is within the normal limits. Probe Gibbs sign is negative. No pericholecystic fluid. The CBD measures 4.1 mm which is within the normal limits. PANCREAS: The pancreas is obscured with midline bowel gas shadowing./ KIDNEYS: No evidence of hydronephrosis. The maximal length of the right kidney is 10.8 cm. The maximal length of the left kidney is 10.8 cm. Circumscribed, exophytic, cyst noted in the left kidney measuring 1.1 cm SPLEEN: No splenomegaly. The spleen measures 7.2 x 4.7 x 3.2 cm No focal lesions are detected. IMPRESSION: No splenomegaly. No hydronephrosis. No cholelithiasis. Echogenic hepatic parenchyma suggesting hepatic steatosis. Sharepoint Designer Developer: KB Transcribe Date/Time: Sep 25 2018 11:23P Dictated by : ANGE MORENO MD This examination was interpreted and the report reviewed and electronically signed by: ANGE MORENO MD on Sep 25 2018 11:49PM EST [id number] [facility] XR CHEST 1V FRONTAL PORTon 0 09-26-2018 XR CHEST 1V FRONTAL PORT * * *Final Report* * * DATE OF EXAM: Sep 26 2018 1:52AM FVX 5376 - XR CHEST 1V FRONTAL PORT / PROCEDURE REASON: Shortness of breath * * * * Physician Interpretation * * * * EXAMINATION: CHEST RADIOGRAPH (PORTABLE SINGLE VIEW AP) Exam Date/Time: 09/26/2018 1:52 AM CLINICAL HISTORY: Adult inpatient presented with Shortness of breath MQ: XCPR_5 Comparison: 09/25/2018 chest x-ray. RESULT: Lines, tubes, and devices: There are mediastinal wires and pericardial therese suggesting prior CABG. EKG electrodes are noted. Lungs and pleura: The patient is rotated towards the right. No focal consolidation, pneumothorax, pleural fusion or decompensated CHF. Cardiomediastinal silhouette: Stable cardiomediastinal silhouette with enlarged cardiopericardial shadow. Other: No displaced acute fractures are detected. IMPRESSION: No acute radiographic abnormality. Sharepoint Designer Developer: PSCB Transcribe Date/Time: Sep 26 2018 1:56A Dictated by : ANGE MORENO MD This examination was interpreted and the report reviewed and electronically signed by: ANGE MORENO MD on Sep 26 2018 1:57AM EST [id number] [facility] ALLIED HEALTHon 09-25-2018 ALLIED HEALTH HNO ID: [id number] Author: Floridalma Qureshi (Rt) Service: Radiology Author Type: Chicken Catcher Type: Allied Health Filed: 09/25/2018 8:09 PM Note Text: Radiology Service Progress Note PATIENT NAME: Thad Mercado DATE OF SERVICE: September 25, 2018 TIME: 8:09 PM PATIENT IDENTITY VERIFICATION COMPLETED USING TWO (2) METHODS: Patient confirmed name verbally and ID band matches.. PATIENT GENDER DATA: Male PATIENT RELEVANT IMPLANT DATA REVIEWED: Not Applicable RADIOLOGY DEPARTMENT: General X-ray: Exam(s) Completed: Chest X-Ray PERIPHERAL IV DATA: Not applicable SIGNED BY: RT Kiera September 25, 2018 8:09 PM [facility] APTTon 09-25-2018 aPTT Coag (Bld) [Time] Unable to assay. Possible interfering substance(s) present. Normal 23.0-32.4 [facility] Comment on above: Result Comment: Acco unt Credited notified Jaky Blackman RN MICU on at 2253 Performed By: #### V BG, LACT, CBCDIF, NTBNP, NH3, CMP, MG1, PHOS, PT, PTT #### [place] [id number] [place] [address] Ammoniaon 09-25-2018 Ammonia (P) [Mass/Vol] 29 umol/L Normal 16-60 [facility] Comment on above: Performed By: #### V BG, LACT, CBCDIF, NTBNP, NH3, CMP, MG1, PHOS, PT, PTT #### [place] [address] CBC and Differentialon 09-25 Abs Baso 0.00 k/uL Normal <0.11 [facility] Comment on above: Performed By: #### V BG, LACT, CBCDIF, NTBNP, NH3, CMP, MG1, PHOS, PT, PTT #### [address] Abs [place] 0.54 k/uL Normal <0.87 [facility] Comment on above: Performed By: #### V BG, LACT, CBCDIF, NTBNP, NH3, CMP, MG1, PHOS, PT, PTT #### [place] [address] Abs Neut 8.70 k/uL High 1.45-7.50 [facility] Comment on above: Performed By: #### V BG, LACT, CBCDIF, NTBNP, NH3, CMP, MG1, PHOS, PT, PTT #### [place] [id number] ANC(includeSEG+BAND) 8.70 k/uL Normal [facility] Comment on above: Performed By: #### V BG, LACT, CBCDIF, NTBNP, NH3, CMP, MG1, PHOS, PT, PTT #### [address] Basophils/100 WBC (Bld) 0.0 % Normal [facility] Comment on above: Performed By: #### V BG, LACT, CBCDIF, NTBNP, NH3, CMP, MG1, PHOS, PT, PTT #### [place] [id number] DTYPE Manual Diff Normal [facility] Comment on above: Performed By: #### V BG, LACT, CBCDIF, NTBNP, NH3, CMP, MG1, PHOS, PT, PTT #### [place] [address] Eosinophils (Bld) [#/Vol] 0.00 10*3/uL Normal <0.46 [facility] Comment on above: Performed By: #### V BG, LACT, CBCDIF, NTBNP, NH3, CMP, MG1, PHOS, PT, PTT #### [place] [address] Eosinophils/100 WBC (Bld) 0.0 % Normal [facility] Comment on above: Performed By: #### V BG, LACT, CBCDIF, NTBNP, NH3, CMP, MG1, PHOS, PT, PTT #### [place] [address] Erythrocyte distribution width (RBC) [Ratio] 14.6 % Normal 11.5-15.0 [facility] Comment on above: Performed By: #### V BG, LACT, CBCDIF, NTBNP, NH3, CMP, MG1, PHOS, PT, PTT #### [place] [address] Hematocrit (Bld) [Volume fraction] 42.8 % Normal 39.0-51.0 [facility] Comment on above: Performed By: #### V BG, LACT, CBCDIF, NTBNP, NH3, CMP, MG1, PHOS, PT, PTT #### [place] [address] Hemoglobin (Bld) [Mass/Vol] 14.3 g/dL Normal 13.0-17.0 [facility] Comment on above: Performed By: #### V BG, LACT, CBCDIF, NTBNP, NH3, CMP, MG1, PHOS, PT, PTT #### [place] [address] Lymphocytes (Bld) [#/Vol] 1.50 10*3/uL Normal 1.00-4.00 [facility] Comment on above: Performed By: #### V BG, LACT, CBCDIF, NTBNP, NH3, CMP, MG1, PHOS, PT, PTT #### [place] [id number] Lymphocytes/100 WBC (Bld) 14.0 % Normal [facility] Comment on above: Performed By: #### V BG, LACT, CBCDIF, NTBNP, NH3, CMP, MG1, PHOS, PT, PTT #### [place] [id number] MCH (RBC) [Entitic mass] 31.3 pG Normal 26.0-34.0 [facility] Comment on above: Performed By: #### V BG, LACT, CBCDIF, NTBNP, NH3, CMP, MG1, PHOS, PT, PTT #### [place] [id number] MCHC (RBC) [Mass/Vol] 33.4 g/dL Normal 30.5-36.0 [facility] Comment on above: Performed By: #### V BG, LACT, CBCDIF, NTBNP, NH3, CMP, MG1, PHOS, PT, PTT #### [place] [id number] MCV (RBC) [Entitic vol] 93.7 fL Normal 80.0-100.0 [facility] Comment on above: Performed By: #### V BG, LACT, CBCDIF, NTBNP, NH3, CMP, MG1, PHOS, PT, PTT #### [phone] Monocytes/100 WBC (Bld) 5.0 % Normal [facility] Comment on above: Performed By: #### V BG, LACT, CBCDIF, NTBNP, NH3, CMP, MG1, PHOS, PT, PTT #### [phone] Neutrophils/100 WBC (Bld) 81.0 % Normal [facility] Comment on above: Performed By: #### V BG, LACT, CBCDIF, NTBNP, NH3, CMP, MG1, PHOS, PT, PTT #### [place] [address] Platelet mean volume (Bld) [Entitic vol] <> Normal 9.0-12.7 [facility] Comment on above: Performed By: #### V BG, LACT, CBCDIF, NTBNP, NH3, CMP, MG1, PHOS, PT, PTT #### [place] [address] Platelets (Bld) [#/Vol] 48 10*3/uL Low 150-400 [facility] Comment on above: Result Comment: Resu lt checked and verified No clot detected. Performed By: #### V BG, LACT, CBCDIF, NTBNP, NH3, CMP, MG1, PHOS, PT, PTT #### [place] [address] Platelets (Bld) [#/Vol] Platelet estimate decreased Normal [facility] Comment on above: Performed By: #### V BG, LACT, CBCDIF, NTBNP, NH3, CMP, MG1, PHOS, PT, PTT #### [place] [id number] RBC (Bld) [#/Vol] 4.57 10*6/uL Normal 4.20-6.00 [facility] Comment on above: Performed By: #### V BG, LACT, CBCDIF, NTBNP, NH3, CMP, MG1, PHOS, PT, PTT #### [place] [id number] Red Cell Morph SEE COMMENT Normal [facility] Comment on above: Result Comment: Unre markable Performed By: #### V BG, LACT, CBCDIF, NTBNP, NH3, CMP, MG1, PHOS, PT, PTT #### [place] [id number] TSH Qn Present Normal [facility] Comment on above: Performed By: #### V BG, LACT, CBCDIF, NTBNP, NH3, CMP, MG1, PHOS, PT, PTT #### [place] [phone] WBC (Bld) [#/Vol] 10.74 10*3/uL Normal 3.70-11.00 [facility] Comment on above: Performed By: #### V BG, LACT, CBCDIF, NTBNP, NH3, CMP, MG1, PHOS, PT, PTT #### [place] [address] Comp Metabolic Panelon 09-25 Albumin [Mass/Vol] 3.6 g/dL Normal 3.5-5.0 [facility] Comment on above: Performed By: #### V BG, LACT, CBCDIF, NTBNP, NH3, CMP, MG1, PHOS, PT, PTT #### [place] [phone] ALP [Catalytic activity/Vol] 69 U/L Normal 38-113 [facility] Comment on above: Performed By: #### V BG, LACT, CBCDIF, NTBNP, NH3, CMP, MG1, PHOS, PT, PTT #### [place] [phone] ALT [Catalytic activity/Vol] 1155 U/L High 5-50 [facility] Comment on above: Performed By: #### V BG, LACT, CBCDIF, NTBNP, NH3, CMP, MG1, PHOS, PT, PTT #### [place] [phone] Anion gap [Moles/Vol] 15 mmol/L Normal 9-18 [facility] Comment on above: Performed By: #### V BG, LACT, CBCDIF, NTBNP, NH3, CMP, MG1, PHOS, PT, PTT #### [place] [address] AST [Catalytic activity/Vol] 1165 U/L High 7-40 [facility] Comment on above: Performed By: #### V BG, LACT, CBCDIF, NTBNP, NH3, CMP, MG1, PHOS, PT, PTT #### [place] [phone] Bilirubin [Mass/Vol] 3.7 mg/dL High 0.2-1.3 [facility] Comment on above: Performed By: #### V BG, LACT, CBCDIF, NTBNP, NH3, CMP, MG1, PHOS, PT, PTT #### [place] [phone] Calcium [Mass/Vol] 8.7 mg/dL Normal 8.5-10.5 [facility] Comment on above: Performed By: #### V BG, LACT, CBCDIF, NTBNP, NH3, CMP, MG1, PHOS, PT, PTT #### [address] Chloride [Moles/Vol] 105 mmol/L Normal 98-110 [facility] Comment on above: Performed By: #### V BG, LACT, CBCDIF, NTBNP, NH3, CMP, MG1, PHOS, PT, PTT #### [place] [phone] CO2 [Moles/Vol] 15 mmol/L Low 23-32 [facility] Comment on above: Performed By: #### V BG, LACT, CBCDIF, NTBNP, NH3, CMP, MG1, PHOS, PT, PTT #### [place] [phone] Creatinine [Mass/Vol] 1.97 mg/dL High 0.70-1.40 [facility] Comment on above: Performed By: #### V BG, LACT, CBCDIF, NTBNP, NH3, CMP, MG1, PHOS, PT, PTT #### [place] [id number] eGFR- Amer. 41 Low >60 [facility] Comment on above: Performed By: #### V BG, LACT, CBCDIF, NTBNP, NH3, CMP, MG1, PHOS, PT, PTT #### [place] [phone] GFR/1.73 sq M predicted among non-blacks MDRD (S/P/Bld) [Vol rate/Area] 34 . Low >60 [facility] Comment on above: Performed By: #### V BG, LACT, CBCDIF, NTBNP, NH3, CMP, MG1, PHOS, PT, PTT #### [place] [phone] Glucose [Mass/Vol] 100 mg/dL Normal 65-100 [facility] Comment on above: Performed By: #### V BG, LACT, CBCDIF, NTBNP, NH3, CMP, MG1, PHOS, PT, PTT #### [place] [phone] Potassium [Moles/Vol] 5.9 mmol/L High 3.5-5.0 [facility] Comment on above: Result Comment: Resu lts may be falsely increased due to interference by hemolysis. Suggest reorder as clinically indicated. Performed By: #### V BG, LACT, CBCDIF, NTBNP, NH3, CMP, MG1, PHOS, PT, PTT #### [place] [address] Protein [Mass/Vol] 6.1 g/dL Normal 6.0-8.4 [facility] Comment on above: Performed By: #### V BG, LACT, CBCDIF, NTBNP, NH3, CMP, MG1, PHOS, PT, PTT #### [place] [phone] Sodium [Moles/Vol] 135 mmol/L Normal 135-146 [facility] Comment on above: Performed By: #### V BG, LACT, CBCDIF, NTBNP, NH3, CMP, MG1, PHOS, PT, PTT #### [place] [address] Urea nitrogen [Mass/Vol] 49 mg/dL High 01-29 [facility] Comment on above: Performed By: #### V BG, LACT, CBCDIF, NTBNP, NH3, CMP, MG1, PHOS, PT, PTT #### [facility] [address] [place] [address] ECG COMPLETEon 09-25-2018 ECG COMPLETE NAME : THAD MERCADO PID : [id number] : 1950 Gender : Male Race : ORD : [id number] Procedure Date : Sep 25 2018 20:01:28 Edit Date : Sep 26 2018 11:17:58 Diagnosis:Atypical atrial flutter with 2:1 AV conduction. Right axis deviation Baseline wander in lead(s) V6 Abnormal ECG Confirmed by MD DESAI PRAFUL ([id number]) on 09/26/2018 11:17:55 AM Ventricular Rate : 124 BPM Atrial Rate : 124 BPM P-R Interval : 82 ms QRS Duration : 95 ms Q-T Interval : 346 ms QTC Calculation(Bezet) : 497 ms P Hometown : 0 degrees R Hometown : 99 degrees T Hometown : -88 degrees Test Reason : Arrhythmia Location : 400 : FVEKG fvmic Overread By : MD DESAI PRAFUL Edited By : MD DESAI PRAFUL Referred By : TAMANNA SALCIDO Acquired by : [id number], Normal [facility] HISTORY PHYSICALon 9 HISTORY PHYSICAL HNO ID: [id number] Author: Viktoria (Res) MD Miguel Service: Critical Care Author Type: Resident Type: HANDP Filed: 09/26/2018 3:54 AM Note Text: MICU ADMISSION HISTORY AND PHYSICAL NOTE Admission Date: 09/25/2018 HPI this is a 68 yo gentleman with PMHx of : - CAD , NSTEMI s/p CABGx4 in 2006 then 3 stents in 2013. Last [facility] 01/2018 - PAD s/p right iliac stent 2006 - ICM, CHF (EF 25%). No ICD. 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 Quit 5 yrs ago He presented to an OSH today with worsening shortness of breath over the past month. No chest pain. He lost ~ 20 pounds (partially intentionally). Patient says his symptoms started after he ate in a restaurant a month ago. He started to have sore throat, body aches and fatigue. Also noticed his urine has become dark yesterday. Patient [place] in July and August. Says his family are still in good health. No Hx of blood transfusion, IVDU or hepatitis. He used to drink EtOH quite a bit in the past but has been sober for the past 5 years. He last visited a dentist on August 2017. No recent travel. He did travel to [place] back in the 1970s and to [place] in 2013. Says his BP runs low but denies any recent hypotensive episodes. He had been on Lipitor but was switched to low dose Crestor (5 mg once a week) a few months ago due to intolerance. OSH course: CXR: Clear lung biggs. No Pleural effusion. EKG: ?atrial flutter Lactate 6>> 4.2 UA: wnl Blood acetaminophen Negative CBC: WBC 11k, Hb 14.6, Plt 61k. INR 3.1 APTT 47.2 CMP: Na 134, K 5.8, bicarb 19, AG 12, CR 2.53, BUN 50, Ca 9.2, total trinity 3.8, AST 2011, ALT 1539 ALP 96, total protein 7.2, albumin 3.9 DEANN 0.299 Fibrinogen 52 LDH 1752 Lipase 110 ICU course: ECHO: 1. Normal LV size and severely impaired LV systolic function, LVF 20% (global severe hypokinesis). There are multiple echodensities seen by 2D that look like mural thrombus along anteroseptum/septum. However, after administration of Definity contrast, they are not visualized and there is only trabeculation at the LV apex. As such, by Definity images, there is not LV thrombus. But 2D images are suspicious for thrombus along septum and anteroseptum. Additional imaging modality ?may be necessary to resolve the discrepancy. 2. Normal RV size and moderately severely impaired RV systolic function 3. Solitary E wave on mitral inflow. 4. LVH of septum 5. LAE. LEOLA 6. Moderate 2+ MR, centrally directed 7. Mild to moderate 1-2+ TR 8. Aortic sclerosis without stenosis. No AI 9. Trivial PI 10. IVC is normal in caliber 1.9 cm with >50% collapsibility. 11. No pericardial effusion. RUQ US :Echogenic hepatic parenchyma suggesting hepatic steatosis.. Normal biliary tract Labs: Direct bilirubin 1.3 DEANN wnl Reticulocyte count high ASSESSMENT AND PLAN: 1. Biventricular CHF (LVEF 20%) with questionable intracardiac thrombus. ProBNP ~30k. 2. Elevated AST, ALT : Congestive hepatopathy vs other etiologies : viral, toxic (Mushrroms) . Less likely to be statin induced. No acetaminophen toxicity. No alcohol use for the past 5 years. RUQ US with hepatic steatosis 3. DIC ? Prolonged INR and ptt. Low fibrinogen . High indirect bilirubin, LDH and reticulocyte. thrombocytopenia 4. Lactic acidosis: secondary to liver failure? Low suspicion for sepsis 5. New onset atrial flutter 6. BRIAN with hyperkalemia Plan: Hold off on IVF given heart failure and low suspicion for an infectious etiology. Send for hepatitis panel Load with digoxin 250 mcg iv Repeat potassium lowering panel TEG scan Blood smear Blood cultures then start zosyn empirically. 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/2008 - Loss of weight 03/24/2008 - Loss of weight - Lymphoma in remission chemo and radiation - Nausea alone - Nonorganic sleep disorder, 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 - Obsessive-compulsive disorders 03/24/2008 - OCD (obsessive compulsive disorder) - Other malaise and fatigue 03/24/2008 - 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, face, and neck 03/24/2008 - Panic disorder without agoraphobia 03/24/2008 - Peripheral vascular disease, 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 - Pure hypercholesterolemia 03/24/2008 - Tobacco use disorder 03/24/2008 - Unspecified constipation 03/24/2008 - Unspecified constipation PAST SURGICAL HISTORY Procedure Laterality Date - CABG, VEIN, FIVE 01/11 [facility]asltman - COLONOSCOP W/ OR W/O BRSH SPEC 09/16/08 - EGD W/O BRSH SPECIMEN W/BX 09/16/08 - EGD W/O OR W/BRUSH/WASH 1987 [facility] EGD - PAST SURGICAL HISTORY OF nasal septum surgery - PAST SURGICAL HISTORY OF biopsy- neck mass- lymphoma - STENT ARTERIAL EXTREMITY 09/11 Right iliac a stent FAMILY HISTORY Problem Relation Age of Onset - Diabetes Father - Alzheimer's Disease Father - Stroke Father - Hypertension Father - Hypertension Mother - other (Other [Other]) Sister 50 frontal temporal dementia - None Sister - None Brother - Lipids Sister - Thyroid Sister - None Daughter - None Daughter Social History Tobacco Use - Smoking status: Current Every Day Smoker Packs/day: 1.00 Years: 30.00 Pack years: 30.00 Types: Cigarettes Substance Use Topics - Alcohol use: Yes - Drug use: Yes Comment: occ pot ALLERGIES Allergen Reactions - Bees Anaphylaxis - Captopril Cough Prior to Admission Medications Medications Prior to Admission: atorvastatin (LIPITOR) 20 mg ORAL tablet Take 1 tablet by mouth daily at bedtime. Disp: 30 tablet Rfl: 11 AMANTADINE HCL (AMANTADINE ORAL) Take by mouth. Disp: Rfl: haloperidol 2 mg ORAL tablet Take 1 tablet by mouth twice daily. Disp: Rfl: 0 meloxicam 15 mg ORAL tablet Take 1 tablet by mouth once daily. Disp: 30 tablet Rfl: 0 predniSONE 20 mg ORAL tablet Take by mouth. TWO (2) TABLETS DAILY FOR 5 DAYS Disp: 10 tablet Rfl: 0 LORazepam (ATIVAN) 1 mg ORAL tablet Take 1 tablet by mouth every 6 hours as needed. Disp: 10 tablet Rfl: 0 doxazosin (CARDURA) 2 mg ORAL tablet Take 1 tablet by mouth once daily. Disp: 30 tablet Rfl: 3 albuterol HFA (PROAIR HFA) 90 mcg/Actuation INHALATION inhaler Inhale 2 Puffs as instructed every 6 hours as needed for Wheezing/Shortness of Breath. Disp: 1 Inhaler Rfl: [address] (DEPAKOTE) 500 mg ORAL EC tablet Take 500 mg by mouth three times daily. Disp: Rfl: fluvoxamine 50 mg ORAL tablet Take 50 mg by mouth daily at bedtime. Disp: Rfl: busPIRone (BUSPAR) 10 mg ORAL tablet Take one(1) tablet twice daily. Disp: 60 Tab Rfl: 0 COMPOUNDED PRESCRIPTION Lamictal- patient states he is taking 200 mg instead of 300 mg Disp: Rfl: 0 COMPOUNDED PRESCRIPTION Advil, Aleve, or Ibuprofen- takes whatever he has available Disp: Rfl: 0 amitriptyline 10 mg ORAL tablet Take one(1) tablet at bedtime. Disp: 30 Tab Rfl: 1 Aspirin 81 mg ORAL Tab Take one(1) tablet daily. Disp: Rfl: 0 Review of Systems negative except what is in HPI OBJECTIVE Admission Weight: Weight: 91 kg (200 lb 9.9 oz). BMI 25.76 kg/(m2) Vital Signs Temp: 36.6 ?C (97.9 ?F) (09/26/18 0000) Pulse: (!) 126 (09/26/18 0300) Resp: 23 (09/26/18 0300) BP: 118/85 (09/26/18 0300) MAP Non Invasive (Mean Arterial Pressure): 95 (09/26/18 0300) SpO2: 98 % (09/26/18 0300) Pain Level: 0 (09/25/18 1900) Diet Orders Placed This Encounter DIET LIQUID Infusion Medications Lines, Drains, and Airways Line Peripheral Admission to Hospital Short Right Forearm 20 Gauge -- days Peripheral 09/25/181929 Short Right Antecubital 22 Gauge less than 1 day Physical Examination Performed Oral Mucosa: Moist mucous membranes Feeding Tube: No Eyes: PERRLA. Mild scleral icterus Neck: Unremarkable; No adenopathy or JVD Cardiovascular: Regular tachycardia. No murmurs Respiratory: intermittent tachypnea. Coarse breath sounds. No wheezing. On RA. Abdomen: Soft. Mild epigastric and suprapubic tenderness Extremities: Edema- No Peripheral Pulses- Present all extremities Capillary Refill- less than 3 seconds Skin: Abnormalities- No Breakdown- No Neurologic: Awake, oriented, Alert, Follows commands and Moving all extremities Diagnostic tests reviewed: Most recent labs and imaging results. Most recent EKG Labs: CBC, Coags, BMP, Mg, Phos Recent Labs 09/25/18 2344 09/25/181 WBC 11.20* 10.74 HB 13.7 14.3 HCT 40.3 42.8 PLT 51* 48* INR -- Unable to assay. Possible interfering substance(s) present. APTT 38.3* Unable to assay. Possible interfering substance(s) present. NA -- 135 K -- 5.9* CHLOR -- 105 CO2 -- 15* BUN -- 49* CREAT -- 1.97* GLUC -- 100 CA -- 8.7 MG -- 2.3 P -- 3.9 Liver Function, Amylase, AND Lipase Recent Labs 09/25/18 2031 TPROT 6.1 ALB 3.6 ALT 1,155* AST 1,165* ALKPHOS 69 TBILI 3.7* Cardiac Enzymes Recent Labs 09/25/18 2344 TROPT 0.024 ABGs Cultures: N/A CXR findings: Clear lung biggs. Cardiomegaly. Viktoria Rivera MD PGY-2 Internal Medicine Pager # [phone] Normal [facility] Lactateon 09-25-2018 Lactate [Moles/Vol] 4.9 mmol/L High 0.5-2.2 [facility] Comment on above: Result Comment: Call ed to and read back by: Herve Blackman [facility] 21:03 Juan Performed By: #### V BG, LACT, CBCDIF, NTBNP, NH3, CMP, MG1, PHOS, PT, PTT #### [place] [address] Magnesiumon 09-25-2018 Magnesium [Mass/Vol] 2.3 mg/dL Normal 1.7-2.6 [facility] Comment on above: Performed By: #### V BG, LACT, CBCDIF, NTBNP, NH3, CMP, MG1, PHOS, PT, PTT #### [place] [address] NT Pro BNPon 09-25-2018 PRO B Natr Peptide 34164 pg/mL High <125 [facility] Comment on above: Performed By: #### V BG, LACT, CBCDIF, NTBNP, NH3, CMP, MG1, PHOS, PT, PTT #### [place] [address] NURSING PROGon 09-25-2018 NURSING PROG HNO ID: [id number] Author: Sol (Rn) KARLA Blackman Service: ? Author Type: Registered Nurse Type: Nursing Progress Note Filed: 09/26/2018 3:44 AM Note Text: Nursing Progress Note Patient Name: Thad Mercado Patient [facility] [place] [id number] Daily Note: 1910 Pt arrived on unit with transport. Pt alert and awake in no acute distress. 1930 Assessment completed, see flow sheet for details. 1999 heating repair technician paged for STAT Echo. EKG done. 2014 Family at bedside. [address] Lopez at bedside. Lab at bedside. 2100 heating repair technician paged. 2200 heating repair technician paged. 2215 Spoke with county program technician, Dr David Desai to read ECHO. 2310 interactive video technician at bedside. 2350 heating repair technician at bedside to perform ECHO. 2344 Lab at bedside. 0000 Assessment completed,see flow sheet for details. 0045 Pt HR up to 165, pt restless, diaphoretic. EKG done. 0057 2.5 mg IV lopressor given as ordered. 0115 Pt has not voided, bladder scanner for [address] Lopez and Dr Rivera aware. 0130 Pt cough up small amount of blood tinged sputum. Dr Lopez and Dr Rivera aware, sent for respiratory culture. 0159 Xray county program technician at bedside. 0215 Dr Lopez at bedside to speak with pt and pt's daughters regarding transfer to [facility]. Discussed ECHO results. 0250 Report called to KARLA Sahu at [facility]. 0321 Pt left with [facility] (helicopter transport) for [facility]. Pt's family took all belongings home. This note was completed by: Sol Blackman, KARLA [facility] PROGRESSon 09-25-2018 PROGRESS HNO ID: [id number] Author: Elysia Lopez Service: Critical Care Author Type: Physician Type: Progress Notes Filed: 09/25/2018 11:14 PM Note Text: MICU - PROGRESS NOTE SERVICE DATE: 09/25/2018 SERVICE TIME: 9 pm I have reviewed the history and physical obtained and documented by the resident, and personally interviewed, examined and reviewed records/data/labs/radio graphs. I personally participated in the oviedo components and I agree with the history physical examination, data assessment, diagnosis and plan as outlined except where differences are stated below. I have discussed the case and management of the patient's care. The following comments revise or confirm relevant oviedo components of the note. A/p 1. CHF OSH EF 25% 2. Cad S/P CABG and stents 3. Abnormal LFT 4. Hyperkalemia 5. Renal failure 6. Lactic acidosis 7. Thrombocytopenia Plan Unclear etiology of Liver dysfunction Serial LFT's - Hepatitis panel check Tylenol levels are normal ? History of wild mushroom intake, about 1 month ago Monitor closely for any bleeds Lactate levels are improving Stat Echo to rule out cardiac etiology for the hepatic dysfunction GI consult in AM Calcium gluconate for the hyperkalemia management MICU prophylaxis OBJECTIVE: VITAL SIGNS (last 24hrs min/max): Temp Av.6 ?C (97.9 ?F) Min: 36.6 ?C (97.9 ?F) Max: 36.6 ?C (97.9 ?F) Pulse Av.3 Min: 122 Max: 125 No data recorded Cuff BP Min: 114/91 Max: 131/87 Pain Level: 0 Vital signs reviewed. NET FLUID BALANCE Intake/Output Summary (Last 24 hours) at 09/25/2018 2302 Last data filed at 09/25/20181999 Gross per 24 hour Intake 60 ml Output 0 ml Net 60 ml MEDICATIONS Current Facility-Administered Medications Medication Dose Route Frequency - perflutren lipid microspheres 1.1 mg/mL 1.3 mL injection (DEFINITY) 1.3 mL INTRAVENOUS DIRECTED PRN - aspirin 81 mg chewable tab(s) 81 mg ORAL DAILY - dextrose 50% in water 50 mL syringe 25 g INTRAVENOUS ONCE - insulin regular human 10 Units injection (short acting) (NovoLIN R,HumuLIN R) 10 Units INTRAVENOUS ONCE - sodium bicarbonate 1 mEq/mL (8.4 %) 50 mEq injection 50 mEq INTRAVENOUS ONCE - calcium gluconate 1 g injection 1 g INTRAVENOUS ONCE - sodium polystyrene sulfonate (with sorbitol) 15 g liquid (SPS) 15 g ORAL ONCE DATA: Diagnostic tests reviewed for today's visit: Most recent labs and imaging results. Most recent labs SIGNATURE: Elysia Lopez MD PATIENT NAME: Thad Mercado DATE: September 25, 2018 TIME: 11:02 PM PAGER/CONTACT #: [phone] This patient has a high probability of sudden, clinically significant deterioration, which requires the highest level of physician preparedness to intervene urgently. I managed/supervised life or organ supporting interventions that required frequent physician assessment. I devoted my full attention to the direct care of this patient for the amount of time indicated below. Time I spent with family or surrogate(s) is included only if the patient was incapable of providing the necessary information or participating in medical decision making. Time devoted to teaching and to any procedures I billed separately is not included. Critical Care Documentation: The patient has the following organ/system impairment(s): BRIAN, Liver failure, CHF, CAD and Complex life-threatening medical problem(s) Time spent providing critical care services: 55 Minutes Normal [facility] Phosphoruson 09-25-2018 Phosphate [Mass/Vol] 3.9 mg/dL Normal 2.5-4.5 [facility] Comment on above: Performed By: #### V BG, LACT, CBCDIF, NTBNP, NH3, CMP, MG1, PHOS, PT, PTT #### [place] [address] Protimeon 09-25-2018 PT Coag (PPP) [Time] Unable to assay. Possible interfering substance(s) present. Normal 9.7-13.0 [facility] Comment on above: Result Comment: Acco unt Credited notified N Hiral MICU on at 2253 Performed By: #### V BG, LACT, CBCDIF, NTBNP, NH3, CMP, MG1, PHOS, PT, PTT #### [place] [address] Venous Blood Gas WEST USE ON 09-25-2018 Base Excess NEG 10 Normal 0-3 [facility] Comment on above: Result Comment: 0-3 Performed By: #### V BG, LACT, CBCDIF, NTBNP, NH3, CMP, MG1, PHOS, PT, PTT #### [address] Device Room Air Normal [facility] Comment on above: Performed By: #### V BG, LACT, CBCDIF, NTBNP, NH3, CMP, MG1, PHOS, PT, PTT #### [place] [id number] Drawsite Venous Normal [facility] Comment on above: Performed By: #### V BG, LACT, CBCDIF, NTBNP, NH3, CMP, MG1, PHOS, PT, PTT #### [place] [id number] HCO3 (Bld) [Moles/Vol] 14 mmol/L Low 23-30 [facility] Comment on above: Performed By: #### V BG, LACT, CBCDIF, NTBNP, NH3, CMP, MG1, PHOS, PT, PTT #### [address] Oxygen (Bld) [Partial pressure] 176 mm Hg High 30-50 [facility] Comment on above: Performed By: #### V BG, LACT, CBCDIF, NTBNP, NH3, CMP, MG1, PHOS, PT, PTT #### [address] Oxygen (Bld) [Partial pressure] 98 % High 50-70 [facility] Comment on above: Performed By: #### V BG, LACT, CBCDIF, NTBNP, NH3, CMP, MG1, PHOS, PT, PTT #### [place] [id number] pCO2 26 mm Hg Low 41-55 [facility] Comment on above: Performed By: #### V BG, LACT, CBCDIF, NTBNP, NH3, CMP, MG1, PHOS, PT, PTT #### [place] [id number] pH (Bld) 7.35 [pH] Normal 7.33-7.43 [facility] Comment on above: Performed By: #### V BG, LACT, CBCDIF, NTBNP, NH3, CMP, MG1, PHOS, PT, PTT #### [facility] [address] [place] [id number] XR CHEST 1V FRONTAL PORTon 0 09-25-2018 XR CHEST 1V FRONTAL PORT * * *Final Report* * * DATE OF EXAM: Sep 25 2018 8:07PM [id number] [id number] - XR CHEST 1V FRONTAL PORT / PROCEDURE REASON: Acute respiratory illness * * * * Physician Interpretation * * * * EXAMINATION: CHEST RADIOGRAPH (PORTABLE SINGLE VIEW AP) Exam Date/Time: 09/25/2018 8:07 PM CLINICAL HISTORY: Acute respiratory illness MQ: [id number]_5 Comparison: 06/29/2010 RESULT: Lines, tubes, and devices: Monitoring leads and wires are seen overlying the chest. Median sternotomy wires and mediastinal clips are identified. Lungs and pleura: There are no consolidative infiltrates or pleural effusions. There is no evidence of pneumothorax. Cardiomediastinal silhouette: The cardiac silhouette is mildly enlarged. The aorta appears within normal limits. The hilar structures are unremarkable. Other: There is a remote healed right rib fracture. There are several remote healed left rib fractures. Visualized portions of the bony thorax appear intact. IMPRESSION: Mild cardiomegaly. Sharepoint Designer Developer: KB Transcribe Date/Time: Sep 25 2018 11:18P Dictated by : IRMA MARIE MD This examination was interpreted and the report reviewed and electronically signed by: IRMA MARIE MD on Sep 25 2018 11:19PM EST [id number] Normal [facility] Vital Signs Date Time Vital Sign Value Performing Clinician Josei emilee 08-30-2022 09:43-0400 Body height 188 cm Johnna FITZGERALD-C Work Phone: [facility] 08-30-2022 09:43-0400 Body temperature 97 [degF] Johnna FITZGERALD-C Work Phone: [facility] 08-30-2022 09:43-0400 Body weight 76.2 kg Johnna FITZGERALD-C Work Phone: [facility] 08-30-2022 09:43-0400 Diastolic blood pressure 54 mm[Hg] Johnna Padmaja PA-C Work Phone: [facility] 08-30-2022 09:43-0400 Heart rate 80 /min Johnna Padmaja PA-C Work Phone: [facility] 08-30-2022 09:43-0400 SaO2% (BldA) [Mass fraction] 99 % Johnna Padmaja PA-C Work Phone: [facility] 08-30-2022 09:43-0400 Systolic blood pressure 98 mm[Hg] Johnna Zenda PA-C Work Phone: [facility] 07-22-2022 15:42-0400 Body temperature 97.81 [degF] Tyshawn Horn Jr., MD Work Phone: [facility] 07-22-2022 15:42-0400 Body weight 79.2 kg Tyshawn Horn Jr., MD Work Phone: [facility] 07-22-2022 15:42-0400 Diastolic blood pressure 67 mm[Hg] Tyshawn Horn Jr., MD Work Phone: [facility] 07-22-2022 15:42-0400 Heart rate 82 /min Tyshawn Horn Jr., MD Work Phone: [facility] 07-22-2022 15:42-0400 Respiratory rate 20 /min Tyshawn Horn Jr., MD Work Phone: [facility] 07-22-2022 15:42-0400 SaO2% (BldA) [Mass fraction] 97 % Tyshawn Horn Jr., MD Work Phone: [facility] 07-22-2022 15:42-0400 Systolic blood pressure 100 mm[Hg] Tyshawn Horn Jr., MD Work Phone: [facility] 04-16-2022 13:48-0500 Body height 190.5 cm Marianela Blanc MD Work Phone: [facility] 04-16-2022 13:48-0500 Body weight 82.46 kg Marianela Blanc MD Work Phone: [facility] 04-16-2022 13:48-0500 Diastolic blood pressure 76 mm[Hg] Marianela Blanc MD Work Phone: [facility] 04-16-2022 13:48-0500 Heart rate 74 /min Marianela Blanc MD Work Phone: [facility] 04-16-2022 13:48-0500 SaO2% (BldA) [Mass fraction] 97 % Marianela Blanc MD Work Phone: [facility] 04-16-2022 13:48-0500 Systolic blood pressure 146 mm[Hg] Marianela Blanc MD Work Phone: [facility] 01-02-2022 12:55-0400 Body height 188 cm Marianela Blanc MD Work Phone: [facility] 01-02-2022 12:55-0400 Body weight 87.54 kg Marianela Blanc MD Work Phone: [facility] 01-02-2022 12:55-0400 Diastolic blood pressure 74 mm[Hg] Marianela Blanc MD Work Phone: [facility] 01-02-2022 12:55-0400 Heart rate 70 /min Marianela Blanc MD Work Phone: [facility] 01-02-2022 12:55-0400 SaO2% (BldA) [Mass fraction] 97 % Marianela Blanc MD Work Phone: [facility] 01-02-2022 12:55-0400 Systolic blood pressure 111 mm[Hg] Marianela Blanc MD Work Phone: [facility] 07-08-2021 08:12-0400 Body weight 82.2 kg DO Javid Shane DO [facility] [place] Encounters Encounter Date Encounter Type Care Provider Facility Start: 12-19-2023 End: 12-20-2023 Emergency department patient visit NADIRA MARCELINO DO Facility:[facility] Start: 09-22-2022 ambulatory Tyshawn larsen Jr., MD Work Phone: [facility] Start: 09-22-2022 Follow-up encounter Tyshawn Horn MD Work Phone: Neurology Comment on above: Follow up from September 12 Start: 09-04-2022 Telephone encounter Johnna tam PA-C Work Phone: General Surgery Comment on above: Patient Update Start: 08-30-2022 End: 08-31-2022 ambulatory JOHNNA MANCIA Facility:[facility] Start: 08-30-2022 End: 08-30-2022 Patient encounter procedure Johnna Mancia PA-C Work Phone: General Surgery Comment on above: Encounter for screen ing for malignant neoplasm of colon (Primary Dx); On continuous oral anticoagulation; ICD (implantable cardioverter-defibrillator) in place Start: 08-05-2022 End: 08-06-[address] TYSHAWN HORN MD Facility: Start: 08-05-2022 End: 08-05-[address] TYSHAWN HORN MD [facility] Start: 08-02-2022 Telephone encounter Tyshawn Horn MD Work Phone: Neurology Comment on above: MRI Authorization Start: 08-01-2022 Telephone encounter Tyshawn Horn MD Work Phone: Neurology Comment on above: Orders Start: 07-28-2022 ambulatory Tyshawn larsen MD Work Phone: Neurology Comment on above: Ammonia Level Result s Start: 07-22-2022 End: 07-23-2022 ambulatory TYSHAWN HORN JR Facility:[facility] Start: 07-22-2022 End: 07-22-2022 ambulatory TYSHAWN HORN JR Facility:[facility] Start: 07-22-2022 End: 07-22-2022 Patient encounter procedure Tyshawn Horn MD Work Phone: Neurology Comment on above: Dementia without beh avioral disturbance (HCC) (Primary Dx); History of bipolar disorder; Confabulation Start: 06-27-2022 ambulatory Raghavendra Abdullahi MD Work Phone: Preventive Cardiology Start: 06-27-2022 E-mail encounter mikayla hall caregiver Raghavendra Abdullahi MD Work Phone: [facility] Start: 06-20-2022 Telephone encounter Tyshawn Horn MD Work Phone: Neurology Comment on above: Appointment Start: 06-06-2022 Telephone encounter Marianela cooper MD Work Phone: Cardiology Comment on above: Patient Update Start: 05-13-2022 Telephone encounter Marianela cooper MD Work Phone: [facility] [place] Comment on above: Patient Question Start: 04-25-2022 Orders Only Marianela moses MD Work Phone: Cardiology Comment on above: Coronary artery dise ase involving [place] coronary artery of [place] heart without angina pectoris (Primary Dx); Chronic systolic congestive heart failure (HCC) Start: 04-18-2022 Orders Only Raghavendra Abdullahi MD Work Phone: Cardiology Comment on above: Dyslipidemia (Primar y Dx); Statin intolerance Start: 04-16-2022 Follow-up encounter Heraclio morales MD Work Phone: [facility] Start: 04-16-2022 End: 04-16-2022 Patient encounter procedure Heraclio Bowens MD Work Phone: [facility] Department Comment on above: Coronary artery dise ase involving [place] coronary artery of [place] heart without angina pectoris (Primary Dx); Typical atrial flutter (HCC); PVD (peripheral vascular disease) (HCC); Peripheral vascular disease, unspecified (HCC); Cardiomyopathy, ischemic; Biventricular heart failure (HCC); Cardiomyopathy in other diseases classified elsewhere Start: 04-16-2022 End: 04-17-2022 ambulatory MARIANELA BLANC Facility:[facility] Start: 04-08-2022 ambulatory Marianela moses MD Work Phone: Cardiology Comment on above: Lipid Panel Test Start: 01-02-2022 End: 01-02-2022 ambulatory [facility] Facility:[facility] Start: 01-02-2022 Follow-up encounter Nohemy murphy MD, PhD Work Phone: [facility] Start: 01-02-2022 End: 01-02-2022 Patient encounter procedure Marianela Blanc MD Work Phone: Cardiology Comment on above: Chronic systolic hea rt failure (HCC) (Primary Dx); Peripheral vascular disease, unspecified (HCC); Pure hypercholesterolemia; ICD (implantable cardioverter-defibrillator) in place; Left ventricular thrombus; Cardiomyopathy, ischemic; Coronary artery disease involving [place] coronary artery of [place] heart without angina pectoris; Typical atrial flutter (HCC) Peripheral vascular disease, unspecified (HCC) (Primary Dx); Pure hypercholesterolemia Chronic systolic hea rt failure (HCC); Pre-diabetes Start: 01-02-2022 End: 01-03-2022 ambulatory [facility] Facility:[facility] Start: 01-02-2022 End: 01-02-2022 ambulatory [facility] Facility:[facility] Start: 10-12-2021 Telephone encounter Marianela cooper MD Work Phone: Cardiology Comment on above: Follow Up Appointment Start: 10-11-2021 End: 10-11-2021 ambulatory [facility] Facility:[facility] Start: 08-20-2021 Telephone encounter Marianela cooper MD Work Phone: Cardiology Comment on above: Med Management Start: 08-16-[address] [facility] Juan Love [employer] Work Phone: [facility] Start: 08-16-2021 ambulatory Damir goldberg [employer] Work Phone: Behavioral Health Intake Comment on above: christi Start: 08-15-2021 Refill Marianela moses MD Work Phone: Cardiology Comment on above: Counseling Start: 08-13-2021 Refill Marianela moses MD Work Phone: Cardiology Comment on above: Refill Request Start: 07-23-2021 ambulatory Marianela moses MD Work Phone: Cardiology Comment on above: Thad Tsai e Question Start: 02-15-2021 End: 02-15-[address] TYSHAWN ESTRADA [facility] Start: 12-25-2020 End: 01-05-2021 ambulatory UNKNOWN PROVIDER Facility:[facility] Procedures Date Procedure Procedure Detail Performing Clinician Start: 04-16-2022 ICD CLINIC CHECK Heraclio Bowens MD Work Phone: Start: 01-02-2022 ICD CLINIC CHECK Nohemy Burger MD, PhD Work Phone: Start: 01-02-2022 Echo tthrc r-t 2d w/wom-mode compl spec&colr d Marianela Blanc MD Work Phone: Start: 01-02-2022 LVEF TRANSTHORACIC ECHO Marianela Blanc MD Work Phone: Start: 04-05-2019 Adult depression scr eening assessment Marianela Blanc MD Work Phone: Start: 09-16-2008 Colonoscopy Marianela cooper MD Work Phone: Plan of Treatment Date Care Activity Detail Author Start: 04-16-2027 LIPID SCREEN LIPID SCREEN [facility] Start: 01-02-2027 LIPID SCREEN LIPID SCREEN [facility] Start: 10-19-2025 LIPID SCREEN LIPID SCREEN [facility] Start: 04-16-2025 DIABETES SCREEN DIABETES SCREEN [facility] Start: 01-02-2025 DIABETES SCREEN DIABETES SCREEN [facility] Start: 03-02-2024 DIABETES SCREEN DIABETES SCREEN [facility] Start: 04-16-2023 Hepatitis B surface antibody level LDL CHOLESTEROL [facility] Start: 01-02-2023 Hepatitis B surface antibody level LDL CHOLESTEROL [facility] Start: 12-06-2022 Influenza vaccination INFLUENZA (Season Ended) [facility] Start: 07-29-2022 End: 09-28-2022 Ammonia [Moles/volume] in Plasma AMMONIA BLD Lab Routine Dementia without behavioral disturbance (HCC) History of bipolar disorder Confabulation Expected: 07/29/2022, Expires: 09/28/2022 [facility] Work Phone: Comment on above: Expected: 07/29/2022, Expires: 3 Start: 07-22-2022 End: 09-21-2022 Ammonia [Moles/volume] in Plasma [facility] Work Phone: Comment on above: Expected: 07/22/2022, Expires: 3 Start: 07-22-2022 End: 09-21-2022 Cobalamin (Vitamin B12) [Mass/volume] in Serum or Plasma [facility] Work Phone: Comment on above: Expected: 07/22/2022, Expires: 3 Start: 07-22-2022 End: 09-21-2022 Thyrotropin [Units/volume] in Serum or Plasma [facility] Work Phone: Comment on above: Expected: 07/22/2022, Expires: 3 Start: 07-22-2022 End: 09-21-2022 Thyroxine (T4) free [Mass/volume] in Serum or Plasma [facility] Work Phone: Comment on above: Expected: 07/22/2022, Expires: 3 Start: 04-25-2022 End: 06-25-2022 Basic metabolic 2000 panel - Serum or Plasma BASIC METABOLIC PNL Lab Routine Coronary artery disease involving [place] coronary artery of [place] heart without angina pectoris Chronic systolic congestive heart failure (HCC) Expected: 04/25/2022, Expires: 06/25/2022 [facility] Work Phone: Comment on above: Expected: 04/25/2022, Expires: 3 Start: 04-25-2022 End: 06-25-2022 Lipid 1996 panel - Serum or Plasma LIPID PANEL BASIC Lab Routine Coronary artery disease involving [place] coronary artery of [place] heart without angina pectoris Chronic systolic congestive heart failure (HCC) Expected: 04/25/2022, Expires: 06/25/2022 [facility] Work Phone: Comment on above: Expected: 04/25/2022, Expires: 3 Start: 04-25-2022 End: 06-25-2022 Lipoprotein a [Mass/volume] in Serum or Plasma LIPOPROTEIN (A) Lab Routine Coronary artery disease involving [place] coronary artery of [place] heart without angina pectoris Chronic systolic congestive heart failure (HCC) Expected: 04/25/2022, Expires: 06/25/2022 [facility] Work Phone: Comment on above: Expected: 04/25/2022, Expires: 3 Start: 04-25-2022 End: 06-25-2022 Natriuretic peptide.B prohormone N-Terminal [Mass/volume] in Serum or Plasma NT PRO BNP Lab Routine Coronary artery disease involving point hope ira coronary artery of point [place] heart without angina pectoris Chronic systolic congestive heart failure (HCC) Expected: 04/25/2022, Expires: 06/25/2022 [facility] Work Phone: Comment on above: Expected: 04/25/2022, Expires: 3 Start: 04-10-2022 End: 06-10-2022 Basic metabolic 2000 panel - Serum or Plasma BASIC METABOLIC PNL Lab Routine Chronic systolic heart failure (HCC) Peripheral vascular disease, unspecified (HCC) Pure hypercholesterolemia Pre-diabetes Expected: 04/10/2022, Expires: 06/10/2022 [facility] Work Phone: Comment on above: Expected: 04/10/2022, Expires: 3 Start: 04-10-2022 End: 06-10-2022 CBC panel - Blood by Automated count CBC Lab Routine Chronic systolic heart failure (HCC) Peripheral vascular disease, unspecified (HCC) Pure hypercholesterolemia Pre-diabetes Expected: 04/10/2022, Expires: 06/10/2022 [facility] Work Phone: Comment on above: Expected: 04/10/2022, Expires: 3 Start: 04-10-2022 End: 06-10-2022 Hemoglobin A1c in Blood HGB A1C Lab Routine Chronic systolic heart failure (HCC) Peripheral vascular disease, unspecified (HCC) Pure hypercholesterolemia Pre-diabetes Expected: 04/10/2022, Expires: 06/10/2022 [facility] Work Phone: Comment on above: Expected: 04/10/2022, Expires: Start: 04-10-2022 End: 06-10-2022 Lipid 1996 panel - Serum or Plasma LIPID PANEL BASIC Lab Routine Chronic systolic heart failure (HCC) Peripheral vascular disease, unspecified (HCC) Pure hypercholesterolemia Pre-diabetes Expected: 04/10/2022, Expires: 06/10/2022 [facility] Work Phone: Comment on above: Expected: 04/10/2022, Expires: Start: 04-10-2022 End: 06-10-2022 Natriuretic peptide.B prohormone N-Terminal [Mass/volume] in Serum or Plasma NT PRO BNP Lab Routine Chronic systolic heart failure (HCC) Peripheral vascular disease, unspecified (HCC) Pure hypercholesterolemia Pre-diabetes Expected: 04/10/2022, Expires: 06/10/2022 [facility] Work Phone: Comment on above: Expected: 04/10/2022, Expires: Start: 04-07-2022 ADVANCE DIRECTIVE DISCUSSION ADVANCE DIRECTIVE DISCUSSION [facility] Start: 04-07-2022 DEPRESSION ASSESSMENT DEPRESSION ASSESSMENT [facility] Start: 01-02-2022 End: 03-04-2022 DIGOXIN/LANOXIN DIGOXIN/LANOXIN Lab Routine Peripheral vascular disease, unspecified (HCC) Pure hypercholesterolemia Chronic systolic heart failure (HCC) ICD (implantable cardioverter-defibrillator) in place Expected: 01/02/2022, Expires: 03/04/2022 [facility] Work Phone: Comment on above: Expected: 01/02/2022, Expires: Start: 01-02-2022 End: 03-04-2022 Lipid 1996 panel - Serum or Plasma LIPID PANEL BASIC Lab Routine Peripheral vascular disease, unspecified (HCC) Pure hypercholesterolemia Expected: 01/02/2022, Expires: 03/04/2022 [facility] Work Phone: Comment on above: Expected: 01/02/2022, Expires: 2 Start: 12-06-2021 Influenza vaccination [facility] Start: 10-19-2021 Hepatitis B surface antibody level LDL CHOLESTEROL [facility] Start: 05-08-2021 COVID-19 VACCINE (3 - Booster for Cande series) COVID-19 VACCINE (3 - Booster for Cande series) [facility] Start: 04-07-2021 ADVANCE DIRECTIVE DISCUSSION ADVANCE DIRECTIVE DISCUSSION [facility] Start: 04-07-2021 DEPRESSION ASSESSMENT DEPRESSION ASSESSMENT [facility] Start: 04-05-2020 Adult depression screening assessment DEPRESSION SCREENING [facility] Start: 10-04-2019 Influenza vaccination LUNG CANCER SCREENING [facility] Start: 09-16-2018 Colonoscopy COLONOSCOPY [facility] Start: 09-16-2018 COLORECTAL CANCER SCREENING COLORECTAL CANCER SCREENING [facility] Start: 01-28-2017 PNEUMOVAX AGE 65 AND OVER WITH 5YR LOOKBACK (#1) PNEUMOVAX AGE 65 AND OVER WITH 5YR LOOKBACK (#1) [facility] Start: 01-28-2002 SHINGRIX VACCINE (1 of 2) SHINGRIX VACCINE (1 of 2) [facility] Start: 01-28-1997 COLOGUARD (FIT-DNA) COLOGUARD (FIT-DNA) [facility] Start: 01-28-[address] COLONOGRAPHY [facility] Start: 01-28-1997 FECAL OCCULT BLOOD FECAL OCCULT BLOOD [facility] Start: 01-28-1997 SIGMOIDOSCOPY SIGMOIDOSCOPY [facility] Start: 01-28-1971 SHINGRIX VACCINE (1 of 2) SHINGRIX VACCINE (1 of 2) [facility] Start: 01-28-1971 Urine microalbumin profile DTAP,TDAP,TD (1 - Tdap) [facility] Start: 01-28-1970 ANNUAL PCP TEAM CHRONIC DISEASE VISIT ANNUAL PCP TEAM CHRONIC DISEASE VISIT [facility] Start: 01-28-1958 PNEUMOCOCCAL: 65+ (1 - PCV) PNEUMOCOCCAL: 65+ (1 - PCV) [facility] Start: 1950 ABDOMINAL AORTIC ANEURYSM SCREENING ABDOMINAL AORTIC ANEURYSM SCREENING [facility] End: 01-02-2023 ECG COMPLETE ECG COMPLETE ECG Routine Peripheral vascular disease, unspecified (HCC) Pure hypercholesterolemia 1 Occurrences starting 01/02/2022 until 01/02/2023 [facility] Work Phone: Comment on above: 1 Occurrences starting 01/02/2022 until 01/02/2023 End: 04-18-2023 ECG COMPLETE ECG COMPLETE ECG Routine Dyslipidemia Statin intolerance 1 Occurrences starting 04/18/2022 until 04/18/2023 [facility] Work Phone: Comment on above: 1 Occurrences starting 04/18/2022 until 04/18/2023 End: 08-21-2023 Mri brain brain stem w/o contrast material MRI BRAIN WO IVCON Radiology Routine Dementia without behavioral disturbance (HCC) 1 Occurrences starting 07/22/2022 until 08/21/2023 [facility] Work Phone: Comment on above: 1 Occurrences starting 07/22/2022 until 08/21/2023 End: 04-16-2023 PVR LEG MICKY VAS LAB PVR LEG MICKY [facility] LAB Vascular Lab Routine Coronary artery disease involving point [place] coronary artery of [place] heart without angina pectoris Typical atrial flutter (HCC) PVD (peripheral vascular disease) (HCC) 1 Occurrences starting 04/16/2022 until 04/16/2023 [facility] Work Phone: Comment on above: 1 Occurrences starting 04/16/2022 until 04/16/2023 [facility] Payers Date Payer Category Payer Unknown [id number] 2021 Medicare [id number] 2021 Unknown ANTHEM BLUE CROS S AND BLUE SHIELD ANTHEM MEDIBLUE O [id number] 2021-Present [phone] [address] [place] [address] [facility] [id number] 2021 Medicare HUMANA MEDICARE HUMANA GOLD PLUS [id number] 2021-Present [phone] [address] [address] [place] [address] O [id number] 2018 Unknown 1950 Unknown [id number] 1950 Unknown [id number] 1950 Unknown [id number] 1950 Unknown [id number] Social History Date Type Detail Facility Start: 07-08-2021 Denies Ever Smoked [facility] Start: 09-26-2018 Tobacco smoking stat us NHIS Ex-smoker [facility] Work Phone: History of tobacco use Cigarette Smoker [facility] Work Phone: Start: 09-26-2018 End: 08-27-2022 Cigarettes smoked current (pack per day) - Reported 2 [facility] Start: 09-26-2018 End: 08-27-2022 Tobacco use and exposure Smokeless tobacco non-user [facility] Work Phone: Start: 06-05-2021 End: 08-30-2022 Alcohol intake Current drinker of alcohol (finding) [facility] Start: 1950 Sex Assigned At Not on file [facility] Start: 01-02-2022 End: 08-27-2022 Tobacco smoking status VAIS Smokes tobacco daily [facility] Start: 12-23-2021 End: 01-02-2022 Exposure to SARS-CoV-2 (event) Not sure [facility] Start: 12-31-2021 End: 01-10-2022 Exposure to SARS-CoV-2 (event) Unable to assess [facility] History of tobacco use Current smoker [facility] Work Phone: Tobacco smoking status [facility] History of tobacco use Pipe Smoker [facility] Clinical Notes 09-30-2018 to 09-04-2022 Telephone Encounter - Ayana Paul - 09/04/2022 12:01 PM Michelle Mancia PA-C - 08/30/2022 11:43 AM Lacie Limon LPN - 08/30/2022 9:44 AM Marisa Horn Jr., MD - 07/22/2022 3:44 PM EDT Note Date & Type Note Facility 09-04-2022 Miscellaneous Notes PATIENT STATED HE IS SEEKING SERVICES ELSEWHERE AT [facility] FOR COLONOSCOPY documented in this encounter [facility] 08-30-2022 Note HNO ID: [id number] Author: Johnna Mancia PA-C Service: ? Author Type: Physician Rejected Items Clerk Type: Progress Notes Filed: 09/05/2022 1:40 PM Note Text: HISTORY AND PHYSICAL Thad Mercado 1950 REFERRING PHYSICIAN: No ref. provider found CHIEF COMPLAINT: Consult (Colonoscopy) HPI: The patient is a 72 year old male referred for endoscopy. Patient resides in assisted living facility and presents today with caregiver from his facility. Thad notes no colon complaints. Patient denies any change in bowel habits, weight changes, blood in stools, black tarry stools or abdominal pain. Denies family history of colon issues. The patient notes no upper GI complaints. Thad has undergone prior endoscopy, last in [address] Gibbs. No concerning findings at that time. Patient's medical history is significant for COPD, cardiomyopathy, s/p CABG, ICD in place, maintained on oral anticoagulation PAST MEDICAL HISTORY Diagnosis Date Acute gastritis without mention of hemorrhage Allergic rhinitis, cause 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 Atherosclerosis of [place] arteries of the extremities with intermittent claudication 03/24/2008 left Backache, 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 Bipolar affective disorder, currently manic, moderate ([facility]) 2010 hospitalized at [facility] 04/06/2010-04/27/2010 Bipolar disorder, unspecified (HCC) 03/24/2008 Cardiomyopathy in other diseases classified elsewhere 03/24/2008 COPD (chronic obstructive pulmonary disease) (HCC) Esophageal reflux 03/24/2008 Hx of CABG 2007 Impotence of organic origin 03/24/2008 Ischemic cardiomyopathy 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HCC) Loss of weight 03/24/2008 Loss of weight Lymphoma in remission (HCC) chemo and radiation Nausea alone Nonorganic sleep disorder, 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 NSTEMI (non-ST elevated myocardial infarction) ([facility]) s/p 3 stents 2014 Obsessive-compulsive disorders 03/24/2008 OCD (obsessive compulsive disorder) Other malaise and fatigue 03/24/2008 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, face, and neck 03/24/2008 PAD (peripheral artery disease) ([facility]) s/p right iliac stent 2006 Panic disorder without agoraphobia 03/24/2008 Peripheral vascular disease, unspecified ([facility]) 03/24/2008 Pure hypercholesterolemia 03/24/2008 Tobacco use disorder 03/24/2008 Unspecified constipation PAST SURGICAL HISTORY Procedure Laterality Date COLONOSCOPY FLX DX W/COLLJ SPEC WHEN PFRMD 09/16/08 CORONARY ARTERY BYPASS 5 CORONARY VENOUS GRAFTS 01/11 [facility] EGD TRANSORAL BIOPSY SINGLE/MULTIPLE 09/16/08 ESOPHAGOGASTRODUODENOSCOPY TRANSORAL DIAGNOSTIC 1988 [facility] EGD PAST SURGICAL HISTORY OF nasal [...] 1 capsule by mouth once daily. Saw Wilmore Fruit 450 mg cap Take by mouth [...] Alcohol use: Yes Drug use: Yes Comment: corie mendes FAMILY HISTORY: FAMILY HISTORY Problem Relation Age of Onset Hypertension Mother Diabetes Father Alzheimer's Disease Father Stroke Father Hypertension Father other (Other) Sister 50 frontal tempo (more content not included)... [facility] 08-30-2022 History of Present illness Narrative HISTORY AND PHYSICAL Thad Mercado 1950 REFERRING PHYSICIAN: No ref. provider found CHIEF COMPLAINT: Consult (Colonoscopy) HPI: The patient is a 72 year old male referred for endoscopy. Patient resides in assisted living facility and presents today with caregiver from his facility. Thad notes no colon complaints. Patient denies any change in bowel habits, weight changes, blood in stools, black tarry stools or abdominal pain. Denies family history of colon issues. The patient notes no upper GI complaints. Thad has undergone prior endoscopy, last in [address] Gibbs. No concerning findings at that time. Patient's medical history is significant for COPD, cardiomyopathy, s/p CABG, ICD in place, maintained on oral anticoagulation PAST MEDICAL HISTORY Diagnosis Date Acute gastritis without mention of hemorrhage Allergic rhinitis, cause 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 Atherosclerosis of [place] arteries of the extremities with intermittent claudication 03/24/2008 left Backache, 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 Bipolar affective disorder, currently manic, moderate ([facility]) 2010 hospitalized at [facility] 04/06/2010-04/27/2010 Bipolar disorder, unspecified ([facility]) 03/24/2008 Cardiomyopathy in other diseases classified elsewhere 03/24/2008 COPD (chronic obstructive pulmonary disease) ([facility]) Esophageal reflux 03/24/2008 Hx of CABG 2006 Impotence of organic origin 03/24/2008 Ischemic cardiomyopathy 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[facility]) Loss of weight 03/24/2008 Loss of weight Lymphoma in remission ([facility]) chemo and radiation Nausea alone Nonorganic sleep disorder, 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 NSTEMI (non-ST elevated myocardial infarction) ([facility]) s/p 3 stents 2014 Obsessive-compulsive disorders 03/24/2008 OCD (obsessive compulsive disorder) Other malaise and fatigue 03/24/2008 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, face, and neck 03/24/2008 PAD (peripheral artery disease) ([facility]) s/p right iliac stent 2006 Panic disorder without agoraphobia 03/24/2008 Peripheral vascular disease, unspecified ([facility]) 03/24/2008 Pure hypercholesterolemia 03/24/2008 Tobacco use disorder 03/24/2008 Unspecified constipation PAST SURGICAL HISTORY Procedure Laterality Date COLONOSCOPY FLX DX W/COLLJ SPEC WHEN PFRMD 09/16/08 CORONARY ARTERY BYPASS 5 CORONARY VENOUS GRAFTS 01/11 [facility] EGD TRANSORAL BIOPSY SINGLE/MULTIPLE 09/16/08 ESOPHAGOGASTRODUODENOSCOPY TRANSORAL DIAGNOSTIC [address] [place] [address] EGD PAST SURGICAL HISTORY OF nasal septum [...] 1 capsule by mouth once daily. Saw Wilmore Fruit 450 mg cap Take by mouth [...] entered by the nurse and reviewed by me Nursing Notes: Nai Limon LPN 08/30/2022 9:50 [...] PFSH and ROS obtained by others. Johnna Mancia PA-C PHYSICAL EXAMINATION: General: +accelerated speech and [...] in place Consultation requested by Dr. Patricia Caputo for an opinion regarding screening colonoscopy. My final recommendations will be communicated back to the requesting physician by way of shared Medical record or letter to requesting physician via [place] mail. Johnna Mancia PA-C documented in this encounter [facility] 08-30-2022 Nurse Note REVIEW OF [...] Nai Limon LPN documented in this encounter [facility] 08-02-2022 Miscellaneous Notes MRI referral placed for [facility]. Adriana Matias LPN Una with [facility] Precert called in and reports provider needs to initiate the authorization for the MRI they ordered through the [facility]. documented in this encounter [facility] 08-01-2022 Miscellaneous Notes Fax received from [facility] requesting a signed ammonia level lab order from Dr. Horn. As order was previously placed, order with electronic signature printed and faxed back as requested. YASSINE Lopez documented in this encounter [facility] 07-29-2022 Miscellaneous Notes It was ordered on review of visit. Will order again at this time. Tyshawn Horn MD I went to the lab and it is to late to add this on, will have to get redrawn. Also I don't think it was ordered. Only vit b12, tsh and t4/free. Adriana Matias LPN documented in this encounter [facility] 07-22-2022 Note HNO ID: [id number] Author: Tyshawn Horn Jr., MD Service: ? Author Type: Physician Type: Progress Notes Filed: 07/22/2022 6:07 PM Note Text: NEW PATIENT (CONSULT) HISTORY AND PHYSICAL EXAM PRIMARY CARE PHYSICIAN: Patricia Caputo MD REASON FOR CONSULT: Dementia REFERRING PHYSICIAN: No ref. provider found CHIEF COMPLAINT: Possible dementia Consultation requested by No ref. provider found for an opinion regarding chief complaint of Patient presents with: New Patient Evaluation and my final recommendations will be communicated back to the requesting physician by way of shared medical record or letter via [place] mail. HISTORY OF PRESENT ILLNESS: Thad Mercado is a 72 year old male, BMI 21.82 kg/m2 with a PMH significant for that below. Currently at [facility]. Presents today due to a reported low score on the SLUMS test at [facility]. Pt immediately with pressured speech and [...] repeat: 2/2 Sentence repeat: 2/2 Similar objects: 04/08 Serial 7s: [id number] 06/07 Delayed recall: 3/5 Clock drawing: Does not put hands on [...] Date Value 10/20/19 (more content not included)... [facility] 07-22-2022 History of Present illness Narrative NEW PATIENT (CONSULT) HISTORY AND PHYSICAL EXAM PRIMARY CARE PHYSICIAN: Patricia Caputo MD REASON FOR CONSULT: Dementia REFERRING PHYSICIAN: No ref. provider found CHIEF COMPLAINT: Possible dementia Consultation requested by No ref. provider found for an opinion regarding chief complaint of Patient presents with: New Patient Evaluation and my final recommendations will be communicated back to the requesting physician by way of shared medical record or letter via [place] mail. HISTORY OF PRESENT ILLNESS: Thad Mercado is a 72 year old male, BMI 21.82 kg/m2 with a PMH significant for that below. Currently at [facility]. Presents today due to a reported low score on the SLUMS test at [facility]. Pt immediately with pressured speech and [...] recall: 08/09 Orientation: July 21, 2022, Friday, Biden 09/10 Number repeat: 05/09 Sentence repeat: 05/09 Similar objects: 04/08 Serial 7s: [id number] 06/07 Delayed recall: 06/09 Clock drawing: Does [...] capsule by mouth once daily.^Disp: ^Rfl: Saw Wilmore Fruit 450 mg cap^Take by mouth once [...] Allergic rhinitis, cause 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 Atherosclerosis of [place] arteries of the extremities with intermittent claudication 03/24/2008 left Backache, 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 Bipolar affective disorder, currently manic, moderate (HCC) 2010 hospitalized at [facility] 04/06/2010-04/27/2010 Bipolar disorder, unspecified (HCC) 03/24/2008 Cardiomyopathy in other diseases classified elsewhere 03/24/2008 COPD (chronic obstructive pulmonary disease) (HCC) Esophageal reflux 03/24/2008 Hx of CABG 2007 Impotence of organic origin 03/24/2008 Ischemic cardiomyopathy 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HCC) Loss of weight 03/24/2008 Loss of weight Lymphoma in remission (HCC) chemo and radiation Nausea alone Nonorganic sleep disorder, 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 NSTEMI (non-ST elevated myocardial infarction) ([facility]) s/p 3 stents 2013 Obsessive-compulsive disorders 03/24/2008 OCD (obsessive compulsive disorder) Other malaise and fatigue 03/24/2008 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 Thus, for now will attempt [...] which included preparing to see the patient, [id number] patient care, completing clinical documentation, obtaining and/or reviewing separately obtained history, performing a medically appropriate examination, counseling and educating the patient/family/caregiver, ordering medications, tests, or procedures, and communicating results to the patient/family/caregiver. documented in this encounter [facility] 06-20-2022 Miscellaneous Notes TC to patients daughter Damion for more information, she states that patient has had bi-polor episodes most of his life and recently had severe episode, [id number] evaluated patient and he was given medication to help stabilize his moods but it was not helping with his dementia. Patient had SLUMS test in which he received a 16. PCP from snf ([facility] Garcia) recommending a brain scan. Will request SLUMS results prior to appointment. Akosua Cleveland LPN Patient's guardian, Damion, called to request an appointment with neurology in [place]. The patient is currently under the care of a snf. [id number] performed a slums testing resulting in a low score. It was suggested to the family to have the patient be evaluated by a neurologist for dementia. Patient is scheduled to be seen on 07/29/22. Please notify the family if there is an additional intake procedures with the [facility] brain health department per the scheduling decision tree. documented in this encounter [facility] 06-10-2022 Miscellaneous Notes Images from the original note were not included. Marianela Blanc MD You 3 days ago Thanks for calling! I would continue current medications. Can split metoprolol into 1/2 and take BID. Viktor Called and spoke to Nurse at [facility], Gave her the above information, she verbalized understanding. Reema Johnson RN June 10, 2022 9:42 AM Images from the original note were not included. MD Madelaine Diallo Adm; Hvi J3-4 Opd Nurses; Terra Lugo 3 hours [...] have specific blood pressures. Did call the snf and spoke to the nurse of the [...] moved and is now living @ [facility]. Marah reports pt is having a dementia eval and she feels [facility] may need to be his permanent residence but will wait on Eval results. Marah requests this information is kept private as they have not discussed with pt. Marah is requesting Lab results are forwarded to [facility] at [phone] Fax [facility] Marah reports she and her sister are medical POA for pt. She will update address info via [employer]. Marah would like a call back re: dosing for Metoprolol and Entresto. Pt is still struggling w/ low BP. Marah can be reached at [phone] She feels a call will be needed to [facility] with update in medication. Thank you Madelaine documented in this encounter [facility] 05-13-2022 Miscellaneous Notes Images from [...] 2022 12:50 PM After speaking with Dr. Blanc: He can hold entresto for 24 hours [...] if his medication needs to be changed. salesperson used [employer]: daughter Phone number to reach you at: [phone] Terra Lugo documented in this encounter [facility] 04-16-2022 Note HNO ID: [id number] Author: Marianela Blanc MD Service: ? Author Type: Physician Type: Progress Notes Filed: 04/16/2022 9:21 PM Note Text: Heart [facility] Vascular [place] [facility] SECTION OF HEART FAILURE and CARDIAC TRANSPLANT MEDICINE OUTPATIENT VISIT DATE April 16, 2022 OUTPATIENT VISIT TYPE Established Patient PRIMARY CARE PHYSICIAN: MD Narcisa Damon E LETHA ALEJANDRO [address] [id number] CHIEF COMPLAINT: Follow-up HISTORY OF PRESENT ILLNESS: Thad Mercado is a 72 year old male [...] for psychiatric reasons and now lives at [facility]. At the snf, he is provided with medications. HF Nursing [...] Allergic rhinitis, cause 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 Atherosclerosis of point hope ir[place] arteries of the extremities with intermittent claudication 03/24/2008 left Backache, 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 Bipolar affective disorder, currently manic, moderate ([facility]) 2010 hospitalized at [facility] 04/06/2010-04/27/2010 Bipolar disorder, unspecified (HCC) 03/24/2008 Cardiomyopathy in other diseases classified elsewhere 03/24/2008 COPD (chronic obstructive pulmonary disease) ([facility]) Esophageal reflux 03/24/2008 Hx of CABG 2007 Impotence of organic origin 03/24/2008 Ischemic cardiomyopathy 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HCC) Loss of weight 03/24/2008 Loss of weight Lymphoma in remission ([facility]) chemo and radiation Nausea alone Nonorganic sleep disorder, 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 NSTEMI (non-ST elevated myocardial infarction) ([facility]) s/p 3 stents 2014 Obsessive-compulsive disorders 03/24/2008 OCD (obsessive compulsive disorder) Other malaise and fatigue 03/24/2008 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, face, and neck 03/24/2008 PAD (peripheral artery disease) ([facility]) s/p right iliac stent 2006 Panic disorder without agoraphobia 03/24/2008 Peripheral vascular disease, unspecified ([facility]) 03/24/2008 Pure hypercholesterolemia 03/24/2008 Tobacco use disorder 03/24/2008 Unspecified constipation PAST SURGICAL HISTORY Procedure Laterality Date COLONOSCOPY FLX DX W/COLLJ SPEC WHEN PFRMD 09/16/08 CORONARY ARTERY BYPASS 5 CORONARY VENOUS GRAFTS 01/11 Emily Lamb EGD TRANSORAL BIOPSY SINGLE/MULTIPLE 09/16/08 ESOPHAGOGASTRODUODENOSCOPY TRANSORAL DIAGNOSTIC 1988 [facility] EGD PAST SURGICAL HISTORY OF nasal [...] capsule by mouth once daily.Disp: Rfl: Saw Wilmore Fruit 450 mg capTake by mouth once [...] 1 tablet by (more content not included)... [facility] 04-16-2022 Instructions Marianela Blanc MD - 04/16/2022 2:20 PM EST It [...] Gabriel See you in 3 months. Marianela Blanc MD, [facility] Staff Fur Blender, Advanced Heart Failure and Transplantation [facility] 04/16/2022 2:20 PM documented in this encounter [facility] 04-16-2022 History of Present illness Narrative Images from the original note were not included. Heart and Vascular [place] [facility] SECTION OF HEART FAILURE and CARDIAC TRANSPLANT MEDICINE OUTPATIENT VISIT DATE April 16, 2022 OUTPATIENT VISIT TYPE Established Patient PRIMARY CARE PHYSICIAN: [place] [address] CHIEF COMPLAINT: Follow-up HISTORY OF PRESENT ILLNESS: Thad Mercado is a 72 year old male [...] for psychiatric reasons and now lives at [facility]. At the snf, he is provided with medications. HF Nursing [...] Allergic rhinitis, cause 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 Atherosclerosis of point hope ira arteries of the extremities with intermittent claudication 03/24/2008 left Backache, 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 Bipolar affective disorder, currently manic, moderate (HCC) 2010 hospitalized at [facility] 04/06/2010-04/27/2010 Bipolar disorder, unspecified (HCC) 03/24/2008 Cardiomyopathy in other diseases classified elsewhere 03/24/2008 COPD (chronic obstructive pulmonary disease) (HCC) Esophageal reflux 03/24/2008 Hx of CABG 2006 Impotence of organic origin 03/24/2008 Ischemic cardiomyopathy 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HCC) Loss of weight 03/24/2008 Loss of weight Lymphoma in remission (HCC) chemo and radiation Nausea alone Nonorganic sleep disorder, 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 NSTEMI (non-ST elevated myocardial infarction) ([facility]) s/p 3 stents 2013 Obsessive-compulsive disorders 03/24/2008 OCD (obsessive compulsive disorder) Other malaise and fatigue 03/24/2008 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 IMPRESSION: Thad Mercado is a 72 year old male [...] to reconsider -> previously managed by Dr. Caputo, his PCP - await lipid panel today- [...] above information as obtained by others Marianela Blanc MD [facility] Heart Failure Section Of Heart Failure and Cardiac Transplant Medicine Heart and Vascular [facility] Desk [address] [place] [address] cc: Dr. Caputo via fax with copy of labs, echo. Juaquin Bates MD [facility] (phone [phone]) documented in this encounter [facility] 04-10-2022 Miscellaneous Notes mp documented in this encounter [facility] 01-08-2022 Note HNO ID: [id number] Author: Marianela Blanc MD Service: ? Author Type: Physician Type: Progress Notes Filed: 01/08/2022 12:50 PM Note Text: Will refer to preventative cardiology. History of statin intolerance and CAD. On bempedoic acid with the above lipid profile. Will likely need PCSK9 inhibitor. Marianela Blanc MD, [facility] Staff Fur Blender, Advanced Heart Failure and Transplantation [facility] 01/08/2022 12:50 PM [facility] 01-02-2022 Note HNO ID: [id number] Author: Marianela Blanc MD Service: ? Author Type: Physician Type: Progress Notes Filed: 01/02/2022 2:44 PM Note Text: Heart and Vascular [facility] SECTION OF HEART FAILURE and CARDIAC TRANSPLANT MEDICINE OUTPATIENT VISIT DATE January 02, 2022 OUTPATIENT VISIT TYPE Established Patient PRIMARY CARE PHYSICIAN: MD [facility]arc[facility] Dam[facility] ALEJAN[facility] [address] [place] [address] CHIEF COMPLAINT: Follow-up HISTORY OF PRESENT ILLNESS: Thad Mercado is a 71 year old male [...] for psychiatric reasons and now lives at [facility]. At the snf, he is provided with medications. He presents with his younger daughter to clinic today. He is hoping to go to to [facility]. HF Nursing Assessment: Interim Hospitalizations [...] Allergic rhinitis, cause 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 Atherosclerosis of [place] arteries of the extremities with intermittent claudication 03/24/2008 left Backache, 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 Bipolar affective disorder, currently manic, moderate ([facility]) 2010 hospitalized at [facility] 04/06/2010-04/27/2010 Bipolar disorder, unspecified ([facility]) 03/24/2008 Cardiomyopathy in other diseases classified elsewhere 03/24/2008 COPD (chronic obstructive pulmonary disease) ([facility]) Esophageal reflux 03/24/2008 Hx of CABG 2007 Impotence of organic origin 03/24/2008 Ischemic cardiomyopathy 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[facility]) Loss of weight 03/24/2008 Loss of weight Lymphoma in remission ([facility]) chemo and radiation Nausea alone Nonorganic sleep disorder, 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 NSTEMI (non-ST elevated myocardial infarction) ([facility]) s/p 3 stents 2013 Obsessive-compulsive disorders 03/24/2008 OCD (obsessive compulsive disorder) Other malaise and fatigue 03/24/2008 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, face, and neck 03/24/2008 PAD (peripheral artery disease) ([facility]) s/p right iliac stent 2006 Panic disorder without agoraphobia 03/24/2008 Peripheral vascular disease, unspecified ([facility]) 03/24/2008 Pure hypercholesterolemia 03/24/2008 Tobacco use disorder 03/24/2008 Unspecified constipation PAST SURGICAL HISTORY Procedure Laterality Date COLONOSCOPY FLX DX W/COLLJ SPEC WHEN PFRMD 09/16/08 CORONARY ARTERY BYPASS 5 CORONARY VENOUS GRAFTS 01/11 Emily Lamb EGD TRANSORAL BIOPSY SINGLE/MULTIPLE 09/16/08 ESOPHAGOGASTRODUODENOSCOPY TRANSORAL DIAGNOSTIC 1988 [facility] EGD PAST SURGICAL HISTORY OF nasal [...] capsule by mouth once daily.Disp: Rfl: Saw Wilmore Fruit 450 mg capTake by mouth once [...] daily.Disp: 30 table (more content not included)... [facility] 01-02-2022 Instructions Marianela Blanc MD - 01/02/2022 1:45 PM EDT It [...] digoxin level), device check, clinic visit with dc and new electric doctor Marianela Blanc MD, [facility] Staff Fur Blender, Advanced Heart Failure and Transplantation [facility] 01/02/2022 1:44 PM documented in this encounter [facility] 01-02-2022 History of Present illness Narrative Images from the original note were not included. Heart and Vascular [place] [facility] SECTION OF HEART FAILURE and CARDIAC TRANSPLANT MEDICINE OUTPATIENT VISIT DATE January 02, 2022 OUTPATIENT VISIT TYPE Established Patient PRIMARY CARE PHYSICIAN: MD Narcisa Damon E CASSYLYRIC [address] [address] CHIEF COMPLAINT: Follow-up HISTORY OF PRESENT ILLNESS: Thad Mercado is a 71 year old male [...] for psychiatric reasons and now lives at [facility]. At the snf, he is provided with medications. He presents with his younger daughter to clinic today. He is hoping to go to to [facility]. HF Nursing Assessment: Interim Hospitalizations [...] Allergic rhinitis, cause 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 Atherosclerosis of [place] arteries of the extremities with intermittent claudication 03/24/2008 left Backache, 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 Bipolar affective disorder, currently manic, moderate ([facility]) 2010 hospitalized at [facility] 04/06/2010-04/27/2010 Bipolar disorder, unspecified ([facility]) 03/24/2008 Cardiomyopathy in other diseases classified elsewhere 03/24/2008 COPD (chronic obstructive pulmonary disease) ([facility]) Esophageal reflux 03/24/2008 Hx of CABG 2006 Impotence of organic origin 03/24/2008 Ischemic cardiomyopathy 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[facility]) Loss of weight 03/24/2008 Loss of weight Lymphoma in remission ([facility]) chemo and radiation Nausea alone Nonorganic sleep disorder, 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 NSTEMI (non-ST elevated myocardial infarction) ([facility]) s/p 3 stents 2014 Obsessive-compulsive disorders 03/24/2008 OCD (obsessive compulsive disorder) Other malaise and fatigue 03/24/2008 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, face, and neck 03/24/2008 PAD (peripheral artery disease) ([facility]) s/p right iliac stent 2006 Panic disorder without agoraphobia 03/24/2008 Peripheral vascular disease, unspecified ([facility]) 03/24/2008 Pure hypercholesterolemia 03/24/2008 Tobacco use disorder 03/24/2008 Unspecified constipation PAST SURGICAL HISTORY Procedure Laterality Date COLONOSCOPY FLX DX W/COLLJ SPEC WHEN PFRMD 09/16/08 CORONARY ARTERY BYPASS 5 CORONARY VENOUS GRAFTS 01/11 [facility] EGD TRANSORAL BIOPSY SINGLE/MULTIPLE 09/16/08 ESOPHAGOGASTRODUODENOSCOPY TRANSORAL DIAGNOSTIC 1988 [facility] EGD PAST SURGICAL HISTORY OF nasal septum [...] capsule by mouth once daily.^Disp: ^Rfl: Saw Wilmore Fruit 450 mg cap^Take by mouth once [...] reviewed the Laboratory Testing and echocardiogram. IMPRESSION: Thad Mercado is a 71 year old male [...] to reconsider -> previously managed by Dr. Caputo, his PCP - await lipid panel today- [...] above information as obtained by others Marianela Blanc MD [facility] Section Of Heart Failure and Cardiac Transplant Medicine Heart and Vascular [place] [facility] [address] [address] cc: Dr. Caputo via fax with copy of labs, echo. MD Salud Gloriaoster (phone [phone]) documented in this encounter [facility] 10-12-2021 Miscellaneous Notes Opened in error documented in this encounter [facility] 10-12-2021 Miscellaneous Notes October 12, 2021 Name: Thad Mercado Patient Contact Number: [phone] (home) [phone] (cell) Date of last office visit: 06/05/2021 Reason For Call: Other Issue: Family member called to re-schedule appointment Physician: Marianela Blanc MD Patient was informed that non-urgent calls may be returned within the next three business days. Yes Patient's daughter called to reschedule his visit with Dr. Blanc, echo, pacemaker check and labs. Message was sent to [facility] to reach out to her. Marah Mercado @ [phone] Sarita Alejandra documented in this encounter [facility] 08-20-2021 Miscellaneous Notes Images from the original note were not included. Called number provided, spoke to Geoffrey, the director medicaid at [facility]. He states that the Entresto is [...] I let her know that per Dr. Blanc's note on 06/05/21, pt states that he wants to continue with his PCP monitoring and prescribing for his cholesterol. Daughter verbalized understanding and will reach PCP re cholesterol and will take Entresto to facility today. Johnna Gauthier RN August 20, 2021 1:35 PM Marianela Blanc MD You 1 hour ago (11:50 AM) Yes valsartan 20mg BID is a reasonable substitute, thank you!! Received a call from patient's daughter who states that the patient is currently admitted at a psychiatric hospital--[facility]. The hospital does not have Entresto to give him, but states they have losartan as an alternative. The daughter states she could drop off his entresto but the hospital generally does not give outside medications to patient's. They would like for a nurse/doctor to call and let them know how they should proceed with his heart meds. They can be reached at [phone] Tamiko [phone] documented in this encounter [facility] 08-17-2021 Miscellaneous Notes BEHAVIORAL HEALTH [...] He denies SI or HI. Presenting Problem: Thad Mercado is a 71 year old male referred from [facility]. for christi. Pt was assessed by [facility] psychotherapist social worker. Social Work Psychiatric Assessment by MAURISIO Norris, FARHAN 08/16/21: Chief Complaint: SW asked pt why he is at the hospital and pt said, talk to the front attendant or the [facility] psychotherapist social worker. Pt the said, send em the bill and then stated his psychiatrist was Dr. Arauz but he retired 6 months ago. Pt said that this technical publications writer needs to talk to the psychotherapist social worker by remote. Pt then stated he Cyndy Tirado and that this technical publications writer is better off preaching to get off drugs. Pt said that he told his psychiatrist, Dr. Arauz how to do meth. Pt said that he is engaged to suppose Alona Gracia who talks like Keron english. Pt then talked about how he had sex as a disco in [place] with Saudi who was parents were part Angolan and Ecuadorean and then stated to call Saudi at [employer]. Per pink slip competed by Thad Mercado was located broke down at [address] out of his vehicle. His daughter called us for a welfare check because he has not been taking his medication. 35+ years bipolar, schizoaffective and onset dementia. This is the fourth emergency admission in 12 months, most recently 2 weeks ago. Thad Has mentioned many people that do not [...] history. PT has a previous admission to [facility] from 08/29/20 through 10/24/20 (56 days) with an eventual discharge to [facility]. Pt frequently required soft restraints, and a 1 to 1 sitter the entire admission due to impulsiveness. Pt required court ordered medication over objections beginning on 09/07/20. Even with all these interventions, pt had mimimal improvement in symptoms and was transferred to [facility] for further management. Pt has been admitted three times since that admission. Pt is chronically non compliant with care. PAST MEDICAL HISTORY: PAST MEDICAL HISTORY Diagnosis Date Acute gastritis without mention of hemorrhage Allergic rhinitis, cause 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 Atherosclerosis of point hope ir[place] arteries of the extremities with intermittent claudication 03/24/2008 left Backache, 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 Bipolar affective disorder, currently manic, moderate ([facility]) 2010 hospitalized at [facility] 04/06/2010-04/27/2010 Bipolar disorder, unspecified ([facility]) 03/24/2008 Cardiomyopathy in other diseases classified elsewhere 03/24/2008 COPD (chronic obstructive pulmonary disease) ([facility]) Esophageal reflux 03/24/2008 Hx of CABG 2007 Impotence of organic origin 03/24/2008 Ischemic cardiomyopathy 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[facility]) Loss of weight 03/24/2008 Loss of weight Lymphoma in remission ([facility]) chemo and radiation Nausea alone Nonorganic sleep disorder, 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 NSTEMI (non-ST elevated myocardial infarction) ([facility]) s/p 3 2013 Obsessive-compulsive disorders 03/24/2008 OCD (obsessive compulsive disorder) Other malaise and fatigue 03/24/2008 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, face, and neck 03/24/2008 PAD (peripheral artery disease) ([facility]) s/p right iliac stent 2006 Panic disorder without agoraphobia 03/24/2008 Peripheral vascular disease, unspecified ([facility]) 03/24/2008 Pure hypercholesterolemia 03/24/2008 Tobacco use disorder [...] BIOPSY SINGLE/MULTIPLE 09/16/08 ESOPHAGOGASTRODUODENOSCOPY TRANSORAL DIAGNOSTIC 1988 [facility] EGD PAST SURGICAL HISTORY OF nasal [...] How Legal Issues Were Verified: Other: See Comment;[facility] AG's Sexual Offender Website (Dusty [employer] Website) Gender Specific Test: Not [...] case with Dr. Enriquez who states that Thad Mercado is not candidate for admission. Provider Stated Diagnosis: Bipolar disorder Admitting Provider: Dr. Enriquez Admission Status: Full Admit Unit: [address] [place] [id number] ([facility]) Admission Type: Medical Certificate Is Patient Less Than 18 Years of Age or have a Guardian/Healthcare Power of Malt House Loader?: No Disposition Date: 08/17/21 Disposition Time: 805 SIGNATURE: EDDIE Escamilla PATIENT NAME: Thad Mercado DATE: August 17, 2021 TIME: 2:49 AM documented in this encounter [facility] 08-15-2021 Miscellaneous Notes Marah Mercado, [...] that we send 30 day prescriptions to [facility] on [facility] in [place] for Entresto, spironolactone, digoxin, and metoprolol. Marah Mercado can be reached at [phone]. documented in this encounter [facility] 07-08-2021 Hospital Discharge instructions Patient Transfer Information from 07/08/2021 8:12 AM:LOC : Alert Physician Follow-up Plan/Appointments from 07/08/2021 9:20 AM:Patient stated Primary Care Provider : Unknown S 10-24-2020 Note [facility] 10-23-2020 Note [facility] 10-22-2020 Note [facility] 10-21-2020 Note [facility] 10-20-2020 Note [facility] 10-19-2020 Note [facility] 10[facility]18-2020 Note [facility] 10[facility]17-2020 Note [facility] 10-16-2020 Note [facility] 10-15-2020 Note [facility] 10-14-2020 Note [facility] 10-13-2020 Note [facility] 10[facility]12-2020 Note [facility] 10[facility]11-2020 Note [facility] 10[facility]10-2020 Note [facility] 10-09-2020 Note [facility] 10[facility]08-2020 Note [facility] 10-07-2020 Note [facility] 10[facility]06-2020 Note [facility] 10[facility]05-2020 Note [facility] 10[facility]04-2020 Note [facility] 10-03-2020 Note [facility] 10-02-2020 Note [facility] 10-01-2020 Note [facility] 09[facility]30-2020 Note [facility] 09-29-2020 Note [facility] 09-29-2020 Note [facility] 09-28-2020 Note [facility] 09-28-2020 Note [facility] 09-28-2020 Note HNO ID: [id number] Author: Shira Casillas RN Service: Behavioral Health Author Type: Registered Nurse Type: Progress Notes Filed: 09/28/2020 5:23 AM Note Text: Patient refused labwork. [facility] 09-28-2020 Note [facility] 09-28-2020 Note [facility] 09-27-2020 Note [facility] 09-26-2020 Note [facility] 09-26-2020 Note HNO ID: [id number] Author: Shira Casillas RN Service: Behavioral Health Author Type: Registered Nurse Type: Progress Notes Filed: 09/26/2020 7:23 AM Note Text: Patient declined lab work. [facility] 09-26-2020 Note [facility] 09-25-2020 Note [facility] 09-24-2020 Note [facility] 09[facility]23-2020 Note [facility] 09[facility]22-2020 Note [facility] 09[facility]22-2020 Note [facility] 09-21-2020 Note [facility] 09-20-2020 Note [facility] 09-19-2020 Note [facility] 09[facility]18-2020 Note [facility] 09[facility]17-2020 Note [facility] 09-16-2020 Note [facility] 09[facility]16-2020 Note [facility] 09[facility]15-2020 Note [facility] 09[facility]14-2020 Note [facility] 09-13-2020 Note [facility] 09-12-2020 Note [facility] 09-11-2020 Note [facility] 09[facility]10-2020 Note [facility] 09-09-2020 Note [facility] 09-09-2020 Note HNO ID: [id number] Author: Interface Note Service: ? Author Type: ? Type: Progress Notes Filed: 09/09/2020 5:50 AM Note Text: Epic Scheduled Downtime: 09/09/2020 1:00:00 AM to 09/09/2020 5:27:00 AM [facility] 09-08-2020 Note [facility] 09-08-2020 Note [facility] 09-07-2020 Note [facility] 09[facility]06-2020 Note [facility] 09[facility]05-2020 Note [facility] 09[facility]04-2020 Note [facility] 09-04-2020 Note [facility] 09-03-2020 Note [facility] 09-02-2020 Note [facility] 09-01-2020 Note [facility] 09-01-2020 Note [facility] 08-31-2020 Note [facility] 08-31-2020 Note [facility] 08-30-2020 Note [facility] 08-29-2020 Note [facility] 09-30-2018 History of Past i llness Narrative Problem Noted Date Resolved Date Acute deep [...] and RV thrombus Plan: - Optimized via Grabill with the closing hemodynamics of RA= 8, PA= 47/20/35, CI= 2.1, CO= 4.6, MVO2= 47 - PT/OT - Will likely need an ICD -> needs education regarding it Cardiogenic shock 09/26/2018 10/09/2018 Overview: - initial Grabill-Constantin with RA: 12 mmHg, RV: 42/12 mmHg, [...] of this encounter (statuses as of 07/24/2021) [facility] History of Past illness Narrative* [...] and RV thrombus Plan: - Optimized via Grabill with the closing hemodynamics of RA= 8, PA= 47/20/35, CI= 2.1, CO= 4.6, MVO2= 47 - PT/OT - Will likely need an ICD -> needs education regarding it Cardiogenic shock 09/26/2018 10/09/2018 Overview: - initial Grabill-Constantin with RA: 12 mmHg, RV: 42/12 mmHg, [...] of this encounter (statuses as of 08/13/2021) [facility] History of Past illness Narrative* Problem Noted Date Resolved Date Acute deep vein thrombosis ( DVT) of popliteal vein of right lower extremity 09/30/2018 10/09/2018 Febrile 09/29/2018 10/09/2018 Overview: - febrile since 6/24/19 - infectious w/u negative thus far Plan: [...] and RV thrombus Plan: - Optimized via Grabill with the closing hemodynamics of RA= 8, PA= 47/20/35, CI= 2.1, CO= 4.6, MVO2= 47 - PT/OT - Will likely need an ICD -> needs education regarding it Cardiogenic shock 09/26/2018 10/09/2018 Overview: - initial Grabill-Constantin with RA: 12 mmHg, RV: 42/12 mmHg, [...] of this encounter (statuses as of 08/15/2021) [facility] History of Past illness Narrative* [...] and RV thrombus Plan: - Optimized via Grabill with the closing hemodynamics of RA= 8, PA= 47/20/35, CI= 2.1, CO= 4.6, MVO2= 47 - PT/OT - Will likely need an ICD -> needs education regarding it Cardiogenic shock 09/26/2018 10/09/2018 Overview: - initial Grabill-Constantin with RA: 12 mmHg, RV: 42/12 mmHg, [...] of this encounter (statuses as of 08/17/2021) [facility] History of Past illness Narrative* [...] and RV thrombus Plan: - Optimized via Grabill with the closing hemodynamics of RA= 8, PA= 47/20/35, CI= 2.1, CO= 4.6, MVO2= 47 - PT/OT - Will likely need an ICD -> needs education regarding it Cardiogenic shock 09/26/2018 10/09/2018 Overview: - initial Grabill-Constantin with RA: 12 mmHg, RV: 42/12 mmHg, [...] of this encounter (statuses as of 08/20/2021) [facility] History of Past illness Narrative* [...] and RV thrombus Plan: - Optimized via Grabill with the closing hemodynamics of RA= 8, PA= 47/20/35, CI= 2.1, CO= 4.6, MVO2= 47 - PT/OT - Will likely need an ICD -> needs education regarding it Cardiogenic shock 09/26/2018 10/09/2018 Overview: - initial Grabill-Constantin with RA: 12 mmHg, RV: 42/12 mmHg, [...] of this encounter (statuses as of 10/05/2021) [facility] History of Past illness Narrative* [...] and RV thrombus Plan: - Optimized via Grabill with the closing hemodynamics of RA= 8, PA= 47/20/35, CI= 2.1, CO= 4.6, MVO2= 47 - PT/OT - Will likely need an ICD -> needs education regarding it Cardiogenic shock 09/26/2018 10/09/2018 Overview: - initial Grabill-Constantin with RA: 12 mmHg, RV: 42/12 mmHg, [...] of this encounter (statuses as of 10/12/2021) [facility] History of Past illness Narrative* [...] and RV thrombus Plan: - Optimized via Grabill with the closing hemodynamics of RA= 8, PA= 47/20/35, CI= 2.1, CO= 4.6, MVO2= 47 - PT/OT - Will likely need an ICD -> needs education regarding it Cardiogenic shock 09/26/2018 10/09/2018 Overview: - initial Grabill-Constantin with RA: 12 mmHg, RV: 42/12 mmHg, [...] of this encounter (statuses as of 01/02/2022) [facility] History of Past illness Narrative* [...] and RV thrombus Plan: - Optimized via Grabill with the closing hemodynamics of RA= 8, PA= 47/20/35, CI= 2.1, CO= 4.6, MVO2= 47 - PT/OT - Will likely need an ICD -> needs education regarding it Cardiogenic shock 09/26/2018 10/09/2018 Overview: - initial Grabill-Constantin with RA: 12 mmHg, RV: 42/12 mmHg, [...] of this encounter (statuses as of 01/02/2022) [facility] History of Past illness Narrative* [...] and RV thrombus Plan: - Optimized via Grabill with the closing hemodynamics of RA= 8, PA= 47/20/35, CI= 2.1, CO= 4.6, MVO2= 47 - PT/OT - Will likely need an ICD -> needs education regarding it Cardiogenic shock 09/26/2018 10/09/2018 Overview: - initial Grabill-Constantin with RA: 12 mmHg, RV: 42/12 mmHg, [...] of this encounter (statuses as of 01/02/2022) [facility] History of Past illness Narrative* [...] and RV thrombus Plan: - Optimized via Grabill with the closing hemodynamics of RA= 8, PA= 47/20/35, CI= 2.1, CO= 4.6, MVO2= 47 - PT/OT - Will likely need an ICD -> needs education regarding it Cardiogenic shock 09/26/2018 10/09/2018 Overview: - initial Grabill-Constantin with RA: 12 mmHg, RV: 42/12 mmHg, [...] of this encounter (statuses as of 01/16/2022) [facility] History of Past illness Narrative* [...] and RV thrombus Plan: - Optimized via Grabill with the closing hemodynamics of RA= 8, PA= 47/20/35, CI= 2.1, CO= 4.6, MVO2= 47 - PT/OT - Will likely need an ICD -> needs education regarding it Cardiogenic shock 09/26/2018 10/09/2018 Overview: - initial Grabill-Constantin with RA: 12 mmHg, RV: 42/12 mmHg, [...] of this encounter (statuses as of 04/12/2022) [facility] History of Past illness Narrative* [...] and RV thrombus Plan: - Optimized via Grabill with the closing hemodynamics of RA= 8, PA= 47/20/35, CI= 2.1, CO= 4.6, MVO2= 47 - PT/OT - Will likely need an ICD -> needs education regarding it Cardiogenic shock 09/26/2018 10/09/2018 Overview: - initial Grabill-Constantin with RA: 12 mmHg, RV: 42/12 mmHg, [...] of this encounter (statuses as of 04/16/2022) [facility] History of Past illness Narrative* [...] and RV thrombus Plan: - Optimized via Grabill with the closing hemodynamics of RA= 8, PA= 47/20/35, CI= 2.1, CO= 4.6, MVO2= 47 - PT/OT - Will likely need an ICD -> needs education regarding it Cardiogenic shock 09/26/2018 10/09/2018 Overview: - initial Grabill-Constantin with RA: 12 mmHg, RV: 42/12 mmHg, [...] of this encounter (statuses as of 04/17/2022) [facility] History of Past illness Narrative* [...] and RV thrombus Plan: - Optimized via Grabill with the closing hemodynamics of RA= 8, PA= 47/20/35, CI= 2.1, CO= 4.6, MVO2= 47 - PT/OT - Will likely need an ICD -> needs education regarding it Cardiogenic shock 09/26/2018 10/09/2018 Overview: - initial Grabill-Constantin with RA: 12 mmHg, RV: 42/12 mmHg, [...] of this encounter (statuses as of 04/18/2022) [facility] History of Past illness Narrative* [...] and RV thrombus Plan: - Optimized via Grabill with the closing hemodynamics of RA= 8, PA= 47/20/35, CI= 2.1, CO= 4.6, MVO2= 47 - PT/OT - Will likely need an ICD -> needs education regarding it Cardiogenic shock 09/26/2018 10/09/2018 Overview: - initial Grabill-Constantin with RA: 12 mmHg, RV: 42/12 mmHg, [...] of this encounter (statuses as of 04/25/2022) [facility] History of Past illness Narrative* [...] and RV thrombus Plan: - Optimized via Grabill with the closing hemodynamics of RA= 8, PA= 47/20/35, CI= 2.1, CO= 4.6, MVO2= 47 - PT/OT - Will likely need an ICD -> needs education regarding it Cardiogenic shock 09/26/2018 10/09/2018 Overview: - initial Grabill-Constantin with RA: 12 mmHg, RV: 42/12 mmHg, [...] of this encounter (statuses as of 04/25/2022) [facility] History of Past illness Narrative* [...] and RV thrombus Plan: - Optimized via Grabill with the closing hemodynamics of RA= 8, PA= 47/20/35, CI= 2.1, CO= 4.6, MVO2= 47 - PT/OT - Will likely need an ICD -> needs education regarding it Cardiogenic shock 09/26/2018 10/09/2018 Overview: - initial Grabill-Constantin with RA: 12 mmHg, RV: 42/12 mmHg, [...] of this encounter (statuses as of 05/14/2022) [facility] History of Past illness Narrative* [...] and RV thrombus Plan: - Optimized via Grabill with the closing hemodynamics of RA= 8, PA= 47/20/35, CI= 2.1, CO= 4.6, MVO2= 47 - PT/OT - Will likely need an ICD -> needs education regarding it Cardiogenic shock 09/26/2018 10/09/2018 Overview: - initial Grabill-Constantin with RA: 12 mmHg, RV: 42/12 mmHg, [...] of this encounter (statuses as of 06/10/2022) [facility] History of Past illness Narrative* [...] and RV thrombus Plan: - Optimized via Grabill with the closing hemodynamics of RA= 8, PA= 47/20/35, CI= 2.1, CO= 4.6, MVO2= 47 - PT/OT - Will likely need an ICD -> needs education regarding it Cardiogenic shock 09/26/2018 10/09/2018 Overview: - initial Grabill-Constantin with RA: 12 mmHg, RV: 42/12 mmHg, [...] of this encounter (statuses as of 06/20/2022) [facility] History of Past illness Narrative* [...] and RV thrombus Plan: - Optimized via Grabill with the closing hemodynamics of RA= 8, PA= 47/20/35, CI= 2.1, CO= 4.6, MVO2= 47 - PT/OT - Will likely need an ICD -> needs education regarding it Cardiogenic shock 09/26/2018 10/09/2018 Overview: - initial Grabill-Constantin with RA: 12 mmHg, RV: 42/12 mmHg, [...] of this encounter (statuses as of 06/27/2022) [facility] History of Past illness Narrative* [...] and RV thrombus Plan: - Optimized via Grabill with the closing hemodynamics of RA= 8, PA= 47/20/35, CI= 2.1, CO= 4.6, MVO2= 47 - PT/OT - Will likely need an ICD -> needs education regarding it Cardiogenic shock 09/26/2018 10/09/2018 Overview: - initial Grabill-Constantin with RA: 12 mmHg, RV: 42/12 mmHg, [...] of this encounter (statuses as of 07/23/2022) [facility] History of Past illness Narrative* [...] and RV thrombus Plan: - Optimized via Grabill with the closing hemodynamics of RA= 8, PA= 47/20/35, CI= 2.1, CO= 4.6, MVO2= 47 - PT/OT - Will likely need an ICD -> needs education regarding it Cardiogenic shock 09/26/2018 10/09/2018 Overview: - initial Grabill-Constantin with RA: 12 mmHg, RV: 42/12 mmHg, [...] of this encounter (statuses as of 07/29/2022) [facility] History of Past illness Narrative* [...] and RV thrombus Plan: - Optimized via Grabill with the closing hemodynamics of RA= 8, PA= 47/20/35, CI= 2.1, CO= 4.6, MVO2= 47 - PT/OT - Will likely need an ICD -> needs education regarding it Cardiogenic shock 09/26/2018 10/09/2018 Overview: - initial Grabill-Constantin with RA: 12 mmHg, RV: 42/12 mmHg, [...] of this encounter (statuses as of 08/02/2022) [facility] History of Past illness Narrative* [...] and RV thrombus Plan: - Optimized via Grabill with the closing hemodynamics of RA= 8, PA= 47/20/35, CI= 2.1, CO= 4.6, MVO2= 47 - PT/OT - Will likely need an ICD -> needs education regarding it Cardiogenic shock 09/26/2018 10/09/2018 Overview: - initial Grabill-Constantin with RA: 12 mmHg, RV: 42/12 mmHg, [...] of this encounter (statuses as of 09/04/2022) [facility] History of Past illness Narrative* [...] and RV thrombus Plan: - Optimized via Grabill with the closing hemodynamics of RA= 8, PA= 47/20/35, CI= 2.1, CO= 4.6, MVO2= 47 - PT/OT - Will likely need an ICD -> needs education regarding it Cardiogenic shock 09/26/2018 10/09/2018 Overview: - initial Grabill-Constantin with RA: 12 mmHg, RV: 42/12 mmHg, [...] of this encounter (statuses as of 09/05/2022) [facility] History of Past illness Narrative* [...] and RV thrombus Plan: - Optimized via Grabill with the closing hemodynamics of RA= 8, PA= 47/20/35, CI= 2.1, CO= 4.6, MVO2= 47 - PT/OT - Will likely need an ICD -> needs education regarding it Cardiogenic shock 09/26/2018 10/09/2018 Overview: - initial Grabill-Constantin with RA: 12 mmHg, RV: 42/12 mmHg, [...] of this encounter (statuses as of 09/26/2022) [facility] + Plan note No data available for this section [facility] Evaluation note* Diagnosis Bipolar disorder, current episode manic without psychotic features, severe (HCC)- Primary Bipolar I disorder, most recent episode (or current) manic, severe, without mention of psychotic behavior documented [facility] this encounter [facility] Diagnosis Chronic systolic heart failure (HCC)- Primary Chronic systolic heart failure Peripheral vascular disease, unspecified (HCC) Peripheral vascular disease, unspecified Pure hypercholesterolemia ICD (implantable cardioverter-defibrillator) in place Automatic implantable cardiac defibrillator in situ Left ventricular thrombus Acute myocardial infarction, unspecified site, episode of care unspecified Cardiomyopathy, ischemic Other specified forms of chronic ischemic heart disease Coronary artery disease involving [place] coronary artery of [place] heart without angina pectoris Typical atrial flutter (HCC) Atrial flutter [facility] Diagnosis Peripheral vascular disease, unspecified (HCC)- Primary Peripheral vascular disease, unspecified Pure hypercholesterolemia [facility] Chronic systolic heart failure (HCC) Chronic systolic heart failure Pre-diabetes Other abnormal glucose [facility] Diagnosis Chronic systolic heart failure (HCC)- Primary Chronic systolic heart failure Peripheral vascular disease, unspecified (HCC) Peripheral vascular disease, unspecified Pure hypercholesterolemia Pre-diabetes Other abnormal glucose [facility] Diagnosis Coronary artery disease involving [place] coronary artery of [place] heart without angina pectoris- Primary Typical atrial flutter (HCC) Atrial flutter PVD (peripheral vascular disease) (HCC) Peripheral vascular disease, unspecified Peripheral vascular disease, unspecified (HCC) Peripheral vascular disease, unspecified Cardiomyopathy, ischemic Other specified forms of chronic ischemic heart disease Biventricular heart failure (HCC) Congestive heart failure, unspecified Cardiomyopathy in other diseases classified elsewhere [facility] encounter [facility] Diagnosis Dyslipidemia- Primary Other and unspecified hyperlipidemia Statin intolerance Other drug allergy [facility] Diagnosis Coronary artery disease involving [place] coronary artery of [place] heart without angina pectoris- Primary Chronic systolic congestive heart failure (HCC) Chronic systolic heart failure [facility]* Diagnosis Dementia without behavioral disturbance (HCC)- Primary Dementia, unspecified, without behavioral disturbance History of bipolar disorder Personal history of affective disorder Confabulation Memory loss [facility] Diagnosis Dementia without behavioral disturbance (HCC)- Primary Dementia, unspecified, without behavioral disturbance History of bipolar disorder Personal history of affective disorder Confabulation Memory loss [facility] this [facility] Diagnosis Encounter for screening for malignant neoplasm of colon- Primary Special screening for malignant neoplasms, colon On continuous oral anticoagulation Long-term (current) use of anticoagulants ICD (implantable cardioverter-defibrillator) in place Automatic implantable cardiac defibrillator in situ documented in this encounter [facility] No data available for this section [facility] Progress note No data available for this section [facility] Reason for referral (narrative)* Outpatient Procedure (Routine) - Authorized Specialty Diagnoses / Procedures Referred By Contact Referred To [facility] Diagnoses Peripheral vascular disease, unspecified (HCC) Pure hypercholesterolemia Procedures ECG COMPLETE ECG ROUTINE ECG W/LEAST 12 LDS W/I&[place] [address] [place] [id number] [place] [id number] Referral ID Status Reason Start Date Expiration Date Visits Requested Visits Authorized [id number] Authorized Auto-Generat ed Referral 01/02/2022 01/02/2023 1 1 [facility] for referral (narrative)* Outpatient Procedure (Routine) - Authorized Specialty Diagnoses / Procedures Referred By Contac t Referred To Contact [facility] Diagnoses Coronary artery disease involving [place] coronary artery of [place] heart without angina pectoris Typical atrial flutter (HCC) PVD (peripheral vascular disease) (HCC) Procedures PVR [facility]G [facility] NON-INVASIVE PHYSIOLOGIC STUDY EXTREMITY 3 Marianela Rosa MD [address] [place] [address] [address] Referral ID Status Reason Start Date Expiration Date Visits Requested Visits Authorized [id number] Authorized Auto-Generat ed Referral 04/16/2022 04/16/2023 1 1 [facility] for referral (narrative)* Outpatient Procedure (Routine) - Authorized Specialty Diagnoses / Procedures Referred By Jamie moses Referred To Contact [facility] Diagnoses Dyslipidemia Statin intolerance Procedures ECG COMPLETE ECG ROUTINE ECG W/LEAST 12 LDS W/I&R Raghavendra Abdullahi MD [address] [place] [address] [address] Referral ID Status Reason Start Date Expiration Date Visits Requested Visits Authorized [id number] Authorized Auto-Generat ed Referral 04/18/2022 04/18/2023 1 1 [facility] for visit Narrative* Outpatient Procedure (Routine) - Closed Specialty Diagnoses / Procedures Referred By Jamie moses Referred To Contact [facility] Diagnoses Chronic systolic heart failure (HCC) Pre-diabetes Cardiomyopathy, ischemic Procedures ECHO ECHO TTHRC R-T 2D W/WOM-MODE COMPL SPEC&COLR D Marianela Blanc MD [address] [place] [address] [address] Referral ID Status Reason Start Date Expiration Date V isits Requested Visits Authorized [id number] Closed Auto-Generate d Referral 06/05/2021 06/05/2022 1 1 [facility] Summary Purpose Family History No Family History Records FoundNo Family History Records FoundNo Family History Records FoundNo Family History Records FoundNo Family History Records FoundNo Family History Records FoundNo Family History Records FoundNo Family History Records FoundNo Family History Records Found Advance Directives No Advanced Directives Records FoundDocuments on File Type Date Recorded Patient Heel Cutter Expl anation Advance Directive(s) 04/05/2019 9:07 AM Advance Directive(s) 03/15/2019 2:51 PM Advance Directive(s) 09/28/2018 3:46 PM Advance Directive(s) 09/28/2018 3:45 PM Advance Directive(s) 09/26/2018 5:43 AM Advance Directive(s) 09/26/2018 12:27 PM Documents on File Type Date Recorded Patient Heel Cutter Expl anation Advance Directive(s) 09/28/2018 3:45 PM Documents on File Type Date Recorded Patient Heel Cutter Expl anation Advance Directive(s) 09/28/2018 3:45 PM Hospital Course Note HNO ID: [id number] Author: Chatnal arango (Res) MD Miguel Service: Critical Care [...] Elysia Lopez MD DISCHARGE SUMMARY PATIENT NAME: Thad Mercado ADMISSION DATE: 09/25/2018 DISCHARGE DATE: 09/26/2018 ATTENDING PHYSICIAN: Elysia Lopez Code Status: Not on file Highest Readmission Risk Score: 8 The 30 day readmissions risk score is derived from an internally validated risk model which evaluates patient level characteristics, utilization history, medication orders and lab results up un (more content not included)... Reason for Referral Specialty Diagnoses / Procedures Referred By Contac t Referred To Contact Diagnoses ICD (implantable cardioverter-defibrillator) in place Procedures CONSULT TO ELECTROPHYSIOLOGY OFFICE/OUTPATIENT [facility] 60-74 MINUTES Marianela Blanc MD [address] [place] [address] Referral ID Status Reason Start Date Expiration Date Visits Requested Visits Authorized [id number] Pending Review PCP Requested Referral 01/02/2022 01/02/2023 1 1 Specialty Diagnoses / Procedures Referred By Contac t Referred To Contact [facility] Diagnoses Dementia without behavioral disturbance (HCC) Procedures MRI BRAIN WO IVCON MRI BRAIN BRAIN STEM W/O CONTRAST MATERIAL Tyshawn Horn Jr., MD [address] [facility] [address] [place] [address] Mr Imaging Referral ID Status Reason Start Date Expiration Date Visits Requested Visits Authorized [id number] Authorized Auto-Generat ed Referral 07/22/2022 08/21/2023 1 [...] ized section and content) DATE CREATED AUTHOR 01/10/2019 [facility] DATE CREATED AUTHOR AUTHOR'S ORGANIZ ATION 10/25/2020 [facility] DATE CREATED AUTHOR AUTHOR'S ORGANIZ ATION [facility]2021 [facility] DATE CREATED AUTHOR AUTHOR'S ORGANIZ ATION 02/28/2021 [facility] DATE CREATED AUTHOR AUTHOR'S ORGANIZ ATION 05/26/2021 [facility] DATE CREATED AUTHOR AUTHOR'S ORGANIZ ATION 07/23/2021 [facility] DATE CREATED AUTHOR AUTHOR'S ORGANIZ ATION 08/07/2022 [facility] ([place] DATE CREATED AUTHOR AUTHOR'S ORGANIZ ATION 09/13/2022 [facility] DATE CREATED AUTHOR AUTHOR'S ORGANIZ ATION 12/26/2023 [facility] Goals (unrecognized section and content) No data available for this section Source Comments (unrecognize d section and content) In the event this informatio n is protected by the Federal Confidentiality of Alcohol and Drug Abuse Patient Records regulations: The Federal rules restrict any use of the information to criminally investigate or prosecute any alcohol or drug abuse patient.[facility] the event this information is protected by the Federal Confidentiality of Alcohol and Drug Abuse Patient Records regulations: The Federal rules restrict any use of the information to criminally investigate or prosecute any alcohol or drug abuse patient.[facility] Center[facility] the event this information is protected by the Federal Confidentiality of Alcohol and Drug Abuse Patient Records regulations: The Federal rules restrict any use of the information to criminally investigate or prosecute any alcohol or drug abuse patient.[facility] Center[facility] the event this information is protected by the Federal Confidentiality of Alcohol and Drug Abuse Patient Records regulations: The Federal rules restrict any use of the information to criminally investigate or prosecute any alcohol or drug abuse patient.[facility] Center[facility] the event this information is protected by the Federal Confidentiality of Alcohol and Drug Abuse Patient Records regulations: The Federal rules restrict any use of the information to criminally investigate or prosecute any alcohol or drug abuse patient.[facility] Center[facility] the event this information is protected by the Federal Confidentiality of Alcohol and Drug Abuse Patient Records regulations: The Federal rules restrict any use of the information to criminally investigate or prosecute any alcohol or drug abuse patient.[facility] CenterIn the event this information is protected by the Federal Confidentiality of Alcohol and Drug Abuse Patient Records regulations: The Federal rules restrict any use of the information to criminally investigate or prosecute any alcohol or drug abuse patient.[facility] CenterIn the event this information is protected by the Federal Confidentiality of Alcohol and Drug Abuse Patient Records regulations: The Federal rules restrict any use of the information to criminally investigate or prosecute any alcohol or drug abuse patient.[facility] CenterIn the event this information is protected by the Federal Confidentiality of Alcohol and Drug Abuse Patient Records regulations: The Federal rules restrict any use of the information to criminally investigate or prosecute any alcohol or drug abuse patient.[facility] CenterIn the event this information is protected by the Federal Confidentiality of Alcohol and Drug Abuse Patient Records regulations: The Federal rules restrict any use of the information to criminally investigate or prosecute any alcohol or drug abuse patient.[facility] CenterIn the event this information is protected by the Federal Confidentiality of Alcohol and Drug Abuse Patient Records regulations: The Federal rules restrict any use of the information to criminally investigate or prosecute any alcohol or drug abuse patient.[facility] CenterIn the event this information is protected by the Federal Confidentiality of Alcohol and Drug Abuse Patient Records regulations: The Federal rules restrict any use of the information to criminally investigate or prosecute any alcohol or drug abuse patient.[facility] CenterIn the event this information is protected by the Federal Confidentiality of Alcohol and Drug Abuse Patient Records regulations: The Federal rules restrict any use of the information to criminally investigate or prosecute any alcohol or drug abuse patient.[facility] CenterIn the event this information is protected by the Federal Confidentiality of Alcohol and Drug Abuse Patient Records regulations: The Federal rules restrict any use of the information to criminally investigate or prosecute any alcohol or drug abuse patient.[facility] CenterIn the event this information is protected by the Federal Confidentiality of Alcohol and Drug Abuse Patient Records regulations: The Federal rules restrict any use of the information to criminally investigate or prosecute any alcohol or drug abuse patient.[facility] CenterIn the event this information is protected by the Federal Confidentiality of Alcohol and Drug Abuse Patient Records regulations: The Federal rules restrict any use of the information to criminally investigate or prosecute any alcohol or drug abuse patient.[facility] CenterIn the event this information is protected by the Federal Confidentiality of Alcohol and Drug Abuse Patient Records regulations: The Federal rules restrict any use of the information to criminally investigate or prosecute any alcohol or drug abuse patient.[facility] CenterIn the event this information is protected by the Federal Confidentiality of Alcohol and Drug Abuse Patient Records regulations: The Federal rules restrict any use of the information to criminally investigate or prosecute any alcohol or drug abuse patient.[facility] CenterIn the event this information is protected by the Federal Confidentiality of Alcohol and Drug Abuse Patient Records regulations: The Federal rules restrict any use of the information to criminally investigate or prosecute any alcohol or drug abuse patient.[facility] CenterIn the event this information is protected by the Federal Confidentiality of Alcohol and Drug Abuse Patient Records regulations: The Federal rules restrict any use of the information to criminally investigate or prosecute any alcohol or drug abuse patient.[facility] CenterIn the event this information is protected by the Federal Confidentiality of Alcohol and Drug Abuse Patient Records regulations: The Federal rules restrict any use of the information to criminally investigate or prosecute any alcohol or drug abuse patient.[facility] CenterIn the event this information is protected by the Federal Confidentiality of Alcohol and Drug Abuse Patient Records regulations: The Federal rules restrict any use of the information to criminally investigate or prosecute any alcohol or drug abuse patient.[facility] CenterIn the event this information is protected by the Federal Confidentiality of Alcohol and Drug Abuse Patient Records regulations: The Federal rules restrict any use of the information to criminally investigate or prosecute any alcohol or drug abuse patient.[facility] CenterIn the event this information is protected by the Federal Confidentiality of Alcohol and Drug Abuse Patient Records regulations: The Federal rules restrict any use of the information to criminally investigate or prosecute any alcohol or drug abuse patient.[facility] CenterIn the event this information is protected by the Federal Confidentiality of Alcohol and Drug Abuse Patient Records regulations: The Federal rules restrict any use of the information to criminally investigate or prosecute any alcohol or drug abuse patient.[facility] CenterIn the event this information is protected by the Federal Confidentiality of Alcohol and Drug Abuse Patient Records regulations: The Federal rules restrict any use of the information to criminally investigate or prosecute any alcohol or drug abuse patient.[facility] CenterIn the event this information is protected by the Federal Confidentiality of Alcohol and Drug Abuse Patient Records regulations: The Federal rules restrict any use of the information to criminally investigate or prosecute any alcohol or drug abuse patient.[facility] CenterIn the event this information is protected by the Federal Confidentiality of Alcohol and Drug Abuse Patient Records regulations: The Federal rules restrict any use of the information to criminally investigate or prosecute any alcohol or drug abuse patient.[facility] Care Teams (unrecognized sec tion and content) Manager File Relationship Specialty Start Date End Date Patricia Caputo [address] [facility] [address] [place] [address] PCP - General Family Practice 09/26/18 Juqauin Bates [address] [facility] [place] [address] Referring Cardiology 03/11/19 Marianela Blanc MD [address] [place] [address] Primary Staff Physician Cardiology 07/12/20 Manager File Relationship Specialty Start Date End Date Patricia Caputo [address] [facility] [address] [place], [place] [id number] PCP - General Family Practice 09/26/18 Juaquin Bates [address] [facility] [place] [address] Referring Cardiology 03/11/19 Marianela Blanc MD [address] [place] [address] Primary Staff Physician Cardiology 07/12/20 Manager File Relationship Specialty Start Date End Date Patricia Caputo [address] [facility] [address] [place] [address] PCP - General Family Practice 09/26/18 Juaquin Bates [address] [facility] [place] [address] Referring Cardiology 03/11/19 Marianela Blanc MD [address] [place] [address] Primary Staff Physician Cardiology 07/12/20 Manager File Relationship Specialty Start Date End Date Patricia Caputo [address] [facility] [address] [place] [address] PCP - General Family Practice 09/26/18 Juaquin Bates [address] [facility] [place] [address] Referring Cardiology 03/11/19 Marianela Blanc MD [address] [place] [address] Primary Staff Physician Cardiology 07/12/20 Manager File Relationship Specialty Start Date End Date Patricia Cpauto [address] [facility] [address] [place] [address] PCP - General Family Medicine 09/26/18 Juaquin Bates [address] [facility] [place] [address] Referring Cardiology 03/11/19 Marianela Blanc MD [address] [place] [address] Primary Staff Physician Cardiology 07/12/20 Manager File Relationship Specialty Start Date End Date Patricia Caputo [address] [facility] [address] [place] [address] PCP - General Family Medicine 09/26/18 Juaquin Bates [address] [facility] [place] [address] Referring Cardiology 03/11/19 Marianela Blanc MD [address] [place] [address] Primary Staff Physician Cardiology 07/12/20 Manager File Relationship Specialty Start Date End Date Patricia Caputo [address] [facility] [address] [place] [address] PCP - General Family Medicine 09/26/18 Juaquin Bates [address] [facility] [place] [address] Referring Cardiology 03/11/19 Marianela Blanc MD [address] [place] [address] Primary Staff Physician Cardiology 07/12/20 Manager File Relationship Specialty Start Date End Date Patricia Caputo [address] [facility] [address] [place] [address] PCP - General Family Medicine 09/26/18 Juaquin Bates [address] [facility] [place] [address] Referring Cardiology 03/11/19 Marianela Blanc MD [address] [place] [address] Primary Staff Physician Cardiology 07/12/20 Manager File Relationship Specialty Start Date End Date Patricia Caputo [address] [facility] [address] [place] [address] PCP - General Family Medicine 09/26/18 Juaquin Bates [address] [facility] [place] [address] Referring Cardiology 03/11/19 Marianela Blanc MD [address] [place] [address] Primary Staff Physician Cardiology 07/12/20 Manager File Relationship Specialty Start Date End Date Patricia Caputo [address] [facility] [address] [place] [address] PCP - General Family Medicine 09/26/18 Juaquin Bates [facility] [place] [address] Referring Cardiology 03/11/19 Marianela Blanc MD [address] [place] [address] Primary Staff Physician Cardiology 07/12/20 Manager File Relationship Specialty Start Date End Date Patricia Caputo [address] [facility] [address] [place] [address] PCP - General Family Medicine 09/26/18 Juaquin Bates [address] [place] [address] Referring Cardiology 03/11/19 Marianela Blanc MD [address] [place] [address] Primary Staff Physician Cardiology 07/12/20 Manager File Relationship Specialty Start Date End Date Patricia Caputo [address] [facility] [address] [place] [address] PCP - General Family Medicine 09/26/[address] [facility] [place] [address] Referring Cardiology 03/11/19 Marianela Blanc MD [address] [place] [address] Primary Staff Physician Cardiology 07/12/20 Manager File Relationship Specialty Start Date End Date Patricia Caputo [address] [facility] [address] [place] [address] PCP - General Family Medicine 09/26/[address] [facility] [place] [address] Referring Cardiology 03/11/19 Marianela Blanc MD [address] [place] [address] Primary Staff Physician Cardiology 07/12/20 Manager File Relationship Specialty Start Date End Date Patricia Caputo [address] [facility] [address] [place] [address] PCP - General Family Medicine 09/26/[address] [facility] [place] [address] Referring Cardiology 03/11/19 Marianela Blanc MD [address] [place] [address] Primary Staff Physician Cardiology 07/12/20 Manager File Relationship Specialty Start Date End Date Patricia Caputo [address] [facility] [address] [place] [address] PCP - General Family Medicine 09/26/18 Juaquin Bates [address] [facility] [place] [address] Referring Cardiology 03/11/19 Marianela Blanc MD [address] [place] [address] Primary Staff Physician Cardiology 07/12/20 Manager File Relationship Specialty Start Date End Date Patricia Caputo [address] [facility] [address] [place] [address] PCP - General Family Medicine 09/26/18 Juaquin Bates [facility] [place] [address] Referring Cardiology 03/11/19 Marianela Blanc MD [address] [place] [address] Primary Staff Physician Cardiology 07/12/20 Manager File Relationship Specialty Start Date End Date Patricia Caputo [address] [facility] [address] [place] [address] PCP - General Family Medicine 09/26/18 Juaquin Bates [address] [facility] [place] [address] Referring Cardiology 03/11/19 Marianela Blanc MD [address] [place] [address] Primary Staff Physician Cardiology 07/12/20 Manager File Relationship Specialty Start Date End Date Patricia Caputo [address] [facility] [address] [place] [address] PCP - General Family Medicine 09/26/[address] [facility] [place] [address] Referring Cardiology 03/11/19 Marianela Blanc MD [address] [place] [address] Primary Staff Physician Cardiology 07/12/20 Manager File Relationship Specialty Start Date End Date Patricia Caputo [address] [facility] [address] [place] [address] PCP - General Family Medicine 09/26/18 Juaquin Bates [place] [address] Referring Cardiology 03/11/19 Marianela Blanc MD [address] [place] [address] Primary Staff Physician Cardiology 07/12/20 Manager File Relationship Specialty Start Date End Date Patricia Caputo [address] [facility] [address] [place] [address] PCP - General Family Medicine 09/26/[address] [place] [address] Referring Cardiology 03/11/19 Marianela Blanc MD [address] [place] [address] Primary Staff Physician Cardiology 07/12/20 Manager File Relationship Specialty Start Date End Date Patricia Caputo [address] [place] [address] PCP - General Family Medicine 09/26/18 Juaquin Bates [address] [facility] [place] [address] Referring Cardiology 03/11/19 Marianela Blanc MD [address] [place] [address] Primary Staff Physician Cardiology 07/12/20 Reason for Visit (unrecogniz ed section and content) Reason Comments Refill Request Reason Onset Date Comments christi 08/16/2021 Reason [...] BE BASED ON THE PRIMARY CLINICAL RECORDS. [employer] provides no warranty or guarantee of the accuracy or completeness of information in this document.
[2024-01-23 19:41] LABS: Magnesium 2.1 mg/dL (1.6-2.6); Phosphorus 3.4 mg/dL (2.5-4.9)
--- NOTE | 2024-01-23 20:29 | PCM.RX.CS ---
Consult Antibiotic Management Pharmacy has been consulted to manage selected antibiotic: Vancomycin Type of Intervention Type of Consult: New start Suspected Infection Suspected Infection: Sepsis Labs Labs: Sodium 129 mmol/L (136-145) L 01/23/24 14:15 Potassium 4.4 mmol/L (3.5-5.1) 01/23/24 14:15 Chloride 95 mmol/L (98-107) L 01/23/24 14:15 Carbon Dioxide 27.0 mmol/L (21.0-32.0) 01/23/24 14:15 Anion Gap 7 (5-15) 01/23/24 14:15 BUN 22 mg/dL (7-18) H 01/23/24 14:15 Creatinine 1.13 mg/dL (0.70-1.30) 01/23/24 14:15 Est GFR (MDRD) Af Amer 82 mL/min (>60) 01/23/24 14:15 Est GFR (MDRD) Non-Af 68 mL/min (>60) 01/23/24 14:15 BUN/Creatinine Ratio 19.5 RATIO (-20) 01/23/24 14:15 Glucose 124 mg/dL (74-106) H 01/23/24 14:15 Microbiology Microbiology: Microbiology 01/23/24 19:17 Mucosa - Nose SARS-CoV-2, Influenza & RSV (PCR) - Final Pharmacy Plan for Drug Dosing Pharmacy Plan for Drug Dosing: NEW START IV VANCOMYCIN Consulting Physician: Jorge Luis Indication: Sepsis Goal Trough: 15-20 mg/dL SrCr: 1.13 mg/dL CrCl: 71.8 mL/min Comments: loading dose of 2000mg given in ER 01/22 @ 1713 Vancomycin Dose: Will start 1500mg Q12 (01/23 @ 0500) and get a trough prior to 4th total dose per policy. Pending Level: 01/25/24 @ 0430 Pharmacy Service will continue to monitor and adjust dosing as required.
--- NOTE | 2024-01-23 21:00 | CON.PCM.CC_ITS ---
HPI Consult Data Date of Consult: 01/23/24 HPI Narrative HPI Narrative: THAD NAIDU, is a 73yo M w/ h/o non-hodgkin?s lymphoma, Afib s/p PM on eliquis, CHF, dementia, schizophrenia, CAD s/p CABG, PAD s/p iliac stent, panic disorder, DM, GERD, chronic LE wounds/drainage, tobacco abuse who was sent from long term for dyspnea. Difficult historian given underlying schizophrenia/dementia, frequently tangential. He was apparently noted to be hypotensive and dyspneic on arrival here. Concern for CHF exacerbation and was given IV Lasix, however BP dropped further with this and so he was started on levophed. He thinks he feels better now, is intermittently smiling and making jokes. Reports some mild abd pain and productive cough at [place], denied fevers/chills, chest pain, vomiting, diarrhea, dysuria. No worsening pain in LE wounds. Denies fevers, chills, nausea, vomiting, diarrhea, syncope, presyncope, dysphagia, odynophagia, chest pain, reflux symptoms, belly pain, dysuria, hematuria, melena, hematochezia, seizures, paralysis, or other neurological changes. ROS: 12-point ROS negative except as per HPI PFSH Medical History Non-Hodgkin lymphoma GERD (gastroesophageal reflux disease) A-fib Pacemaker Schizo-affective schizophrenia CHF (NYHA class II, ACC/AHA stage C) Ventricular mural thrombus Non-STEMI (non-ST elevated myocardial infarction) Ischemic cardiomyopathy Panic disorder GERD (gastroesophageal reflux disease) Peripheral vascular disease Hyperlipemia Large cell lymphoma Atherosclerotic heart disease of [place] coronary artery without angina pectoris Type 2 diabetes mellitus Home Medications ?Medication ?Instructions ?Recorded ?Last Taken ?Type aspirin 81 mg chewable tablet 81 mg PO DAILY heart 10/09/18 01/23/24 History bempedoic acid 180 mg tablet 180 mg PO QHS 08/28/20 01/20/24 History (Nexletol) nitroglycerin 0.4 mg sublingual 0.4 mg sublingual Q5-15M PRN Chest 07/25/21 Unknown History tablet Pain apixaban 5 mg tablet (Eliquis) 5 mg PO BID 08/16/21 01/23/24 History cholecalciferol (vitamin D3) 50 50 mcg PO DAILY 07/08/22 01/23/24 History mcg (2,000 unit) tablet omeprazole 20 mg capsule,delayed 20 mg PO DAILY 07/08/22 01/23/24 History release acetaminophen 500 mg tablet 500 mg PO TID 07/25/22 01/23/24 History digoxin 250 mcg (0.25 mg) tablet 0.25 mg PO DAILY 07/25/22 01/23/24 History ezetimibe 10 mg tablet 10 mg PO DAILY 07/25/22 01/23/24 History metoprolol succinate 25 mg 25 mg PO BID 07/25/22 01/23/24 History tablet,extended release 24 hr paliperidone palmitate 156 mg/mL 156 mg IM Q28D 07/25/22 01/09/24 History intramuscular syringe (Invega Sustenna) sacubitril 49 mg-valsartan 51 mg 0.5 tab PO BID 07/25/22 01/23/24 History tablet (Entresto) saw palmetto 450 mg capsule 450 mg PO BID 01/21/23 01/23/24 History dapagliflozin propanediol 10 mg 10 mg PO DAILY 07/22/23 01/23/24 History tablet (Farxiga) sertraline 25 mg tablet 25 mg PO QHS 07/22/23 01/20/24 History albuterol sulfate 90 mcg/actuation 2 puff inhalation Q4-6H PRN 12/30/23 01/23/24 History aerosol inhaler shortness of breath or wheezing furosemide 20 mg tablet (Lasix) 20 mg PO QAM 12/30/23 01/23/24 History loratadine 10 mg tablet (Claritin) 10 mg PO QDAY 12/30/23 01/23/24 History camphor-menthol 0.2 %-3.5 % 1 applic topical TID PRN pain 01/23/24 01/21/24 History topical gel (Arctic Relief) carboxymethylcellulose sodium 1 % 2 drp EACH EYE 4X/DAY PRN dry 01/23/24 01/23/24 History eye liquid gel drops (Refresh eye(s) Liquigel) guaifenesin 100 mg/5 mL oral 200 mg PO Q6H PRN cough 01/23/24 01/23/24 History liquid (Adult Tussin Chest Congestion) ipratropium 0.5 mg-albuterol 3 mg 3 ml inhalation 4X/DAY PRN 01/23/24 01/23/24 History (2.5 mg base)/3 mL nebulization shortness of breath soln naproxen sodium 220 mg capsule 220 mg PO BID PRN pain 01/23/24 01/23/24 History (Aleve) Allergy/AdvReac Type Severity Reaction Status Date / Time atorvastatin AdvReac Intermediate myalgias Verified 12/30/23 13:22 ezetimibe (From Zetia) AdvReac Intermediate mylagias Verified 12/30/23 13:22 rosuvastatin AdvReac Intermediate Myalgias Verified 12/30/23 13:22 Family History Father Diabetes Alzheimers disease CVA (cerebral vascular accident) Hypertension Mother Hypertension Sister Frontal lobe dementia Sister Hyperlipidemia Sister Thyroid disorder Surgical History History of cardioversion (09/27/18) Presence of implantable cardioverter-defibrillator (ICD) (~04/05/19) History of nasal septoplasty S/P insertion of iliac artery stent (~09/2006) History of coronary artery bypass surgery (~01/06/07) Presence of stent in coronary artery (~12/07/13) Social History Smoking Status: Former smoker alcohol intake: current substance use type: marijuana caffeine: No Objective Data Objective Data Vital Signs: Vital Signs Last response 3 Temperature 36.4 C L 01/23/24 20:00 Temperature Source Temporal 01/23/24 20:00 Pulse Rate 115 H 01/23/24 20:00 Respiratory Rate 25 H 01/23/24 20:00 Respiratory Effort Normal 01/23/24 14:09 Respiratory Depth Normal 01/23/24 14:09 Respiratory Pattern Normal 01/23/24 14:09 Blood Pressure 100/85 H 01/23/24 20:15 Blood Pressure Mean 90 01/23/24 20:15 Blood Pressure Source Monitor 01/23/24 20:15 Blood Pressure Position Semi-Fowlers 01/23/24 20:15 Blood Pressure Location Right Arm 01/23/24 20:15 Pulse Ox 100 01/23/24 20:00 Oxygen Delivery Method Nasal Cannula 01/23/24 20:00 Oxygen Flow Rate (L/min) 2 01/23/24 20:00 I&O: I&O Last 24 Hours 3 01/22/24 01/23/24 01/23/24 23:59 11:59 23:59 Intake Total 2175.5 / 2175.5 Balance 2175.5 / 2175.5 I&O: Total Stay 3 01/23/24 13:57 thru 01/23/24 20:22 Intake Total 2175.5 Balance 2175.5 Current Meds Ordered / Administered: Current meds ordered / Administered 3 Generic Name Dose Route Start Last Admin Trade Name Freq PRN Reason Stop Dose Admin Acetaminophen 650 mg 01/23/24 20:18 Acetaminophen 325 Mg Tablet PO Q6H PRN PRN Pain 1-10 Or Fever>100.7 Albuterol/Ipratropium 3 ml 01/23/24 20:18 Ipratropium/Albuterol Sulfate 3 Ml Ampul.Neb INHALATION 4X/DAY PRN shortness of breath Artificial Tears 2 each 01/23/24 20:33 Carboxymethylcellulose Sodium Gel Dropperette EACH EYE 4X/DAY PRN dry eye(s) Aspirin 81 mg 01/24/24 08:00 [facility]oxin 250 mcg 01/24/24 10:00 Digoxin 250 Mcg Tablet PO DAILY MICHAEL Ezetimibe 10 mg 01/24/24 10:00 Ezetimibe 10 Mg Tablet PO DAILY [facility] Guaifenesin 1 tablet 01/23/24 22:00 Guaifenesin/D-Methorphan Tab.Sr.12h PO BID [facility] Norepinephrine Bitartrate 8 mg 250 mls @ 9.375 mls/hr 01/23/24 17:45 01/23/24 20:15 / Sodium Chloride CONT INF 10 mcg/min .[id number] MICHAEL 18.8 mls/hr Titration Protocol 5 MCG/MIN Piperacillin Sod/Tazobactam 50 mls @ 12.5 mls/hr 01/23/24 22:00 Sod 3.375 gm/ Sodium Chloride IV Q8 [facility] Vancomycin IV-PHARMACY TO DOSE 500 mls @ 250 mls/hr 01/23/24 20:18 1 each/ Sodium Chloride IV PRN PRN Rx to Dose Protocol Vancomycin HCl 1,500 mg/ 530 mls @ 250 mls/hr 01/24/24 05:00 Sodium Chloride IV Q12H MICHAEL Nitroglycerin 0.4 mg 01/23/24 20:21 Nitroglycerin (Inpatient Use) 0.4 Mg Tab.Subl SL Q5M PRN CARDIAC/CHEST PAIN Pantoprazole Sodium 40 mg 01/24/24 10:00 Pantoprazole Sodium 40 Mg Tablet PO DAILY [facility] Prochlorperazine Edisylate 5 mg 01/23/24 20:18 Prochlorperazine 10 Mg/2 Ml Vial IV Q4H PRN PRN Breakthrough Nausea/Vomiting Sodium Chloride 10 - 40 ml 01/23/24 20:57 0.9% Saline Lock 10 Ml Syringe IV UD PRN SALINE FLUSH Vancomycin Protocol 1 lab 01/25/24 02:30 Vancomycin Trough/Random Due MC 01/25/24 06:30 DAILY [facility] Lab / Micro Data 01/23/24 14:15 01/23/24 14:15 Labs: Laboratory Results - last 24 hr 01/23/24 14:15: WBC 8.7, RBC 3.89 L, Hgb 11.9 L, Hct 35.2 L, MCV 90.5, MCH 30.6, MCHC 33.8, RDW Std Deviation 45.4 H, RDW Coeff of Nevaeh 13.9, Plt Count 108 L, MPV 11.9, Immature Gran % (Auto) 0.300, Neut % (Auto) 80.0 H, Lymph % (Auto) 8.9 L, [place] % (Auto) 8.8, Eos % (Auto) 1.5, Baso % (Auto) 0.5, Absolute Neuts (auto) 7.0, Absolute Lymphs (auto) 0.78 L, Nucleated RBC % 0, PT 22.3 H, INR 2.0, APTT 37.4 H, Sodium 129 L, Potassium 4.4, Chloride 95 L, Carbon Dioxide 27.0, Anion Gap 7, BUN 22 H, Creatinine 1.13, Estim Creat Clear Calc 71.82, Est GFR (MDRD) Af Amer 82, Est GFR (MDRD) Non-Af 68, BUN/Creatinine Ratio 19.5, Glucose 124 H, Calcium 9.3, Total Bilirubin 0.90, AST 49 H, ALT 115 H, Alkaline Phosphatase 94, Troponin I High Sens 27, Total Protein 6.2 L, Albumin 2.9 L, Globulin 3.3, Albumin/Globulin Ratio 0.9 01/23/24 15:05: Lactic Acid 1.9 01/23/24 15:50: Urine Color Yellow, Urine Clarity Clear, Urine pH 6.0, Ur Specific [place] 1.015, Urine Protein 15 H, Urine Glucose (UA) 1000 H, Urine Ketones Negative, Urine Occult Blood Negative, Urine Nitrite Negative, Urine Bilirubin Negative, Urine Urobilinogen 1 H, Ur Leukocyte Esterase Negative, Urine RBC 0-5 SEEN, Urine WBC 0-5 SEEN, Ur Squamous Epith Cells 0 SEEN, Urine Bacteria RARE, Urine Mucus 0 SEEN 01/23/24 19:20: Phosphorus 3.4, Magnesium 2.1 Micro: Microbiology 01/23/24 19:17 Mucosa - Nose SARS-CoV-2, Influenza & RSV (PCR) - Final Imaging Radiology Impression Chest X-Ray 01/23/24 15:16 IMPRESSION: Atelectasis or infiltrate in both lung bases with probable small effusions. Electronically Signed: Christopher Quezada MD at 15:43 EDT , Assessment and Plan . Assessment and plan: Physical Exam: Gen - NAD, well-developed HEENT - MMM. Sclera anicteric Resp - +crackles. Mild tachypnea CV - RRR. No m/g/r Abd - Soft, NT, ND Ext - +LE edema. Cold extremities, palpable pulses Skin - LE wounds and mild erythema, serous drainage (not purulent), no warmth/TTP currently Neuro - Grossly nonfocal. Alert and answers questions appropriately, but slow to respond and very tangential I have reviewed the pertinent vital sign, laboratory, and imaging data. ASSESSMENT: # Shock - may be multifactorial for cardiogenic/low EF +- sepsis, BP meds in setting of BRIAN # Acute hypoxic respiratory failure # Pulmonary infiltrates - pulmonary edema vs possible PNA # CHF exacerbation - EF 30% on prior TTE 2021 # Afib w/ RVR - s/p PM on eliquis # Chronic LE wounds/seeping # Elevated R hemidiaphragm # Hyponatremia # BRIAN # Transaminitis # Anemia/thrombocytopenia # Chronic problems: h/o non-hodgkin?s lymphoma, dementia, schizophrenia, CAD s/p CABG, PAD s/p iliac stent, panic disorder, DM, GERD, tobacco abuse PLAN: -Wean levophed to keep MAP > 65. Eliabhayis held now per IM for CVL placement. Lactate wnl -On 2L NC, wean to keep sats > 90%. Obtain ABG if worsening -Monitor for worsening RVR. Cont home digoxin for now, check level. May need additional dosing vs amio if worsening. -Ensure electrolytes well-repleted. Check TSH -Trend trop, check BNP. Repeat echo pending -Empiric abx for possible PNA/?LE wound infection. f/u Cx. COVID/flu/RSV neg. Check procal, CRP. May need leg imaging if worsening -Follow Na, Cr, UOP -Monitor LFTs -Cont psych meds from [place] FEN/GI: NPO Proph DVT/GI: Leonidas held for CVL Critical Care Time: 60 mins The entirety of this encounter was completed via telemedicine
[2024-01-23] MEDS: guaiFENesin/D-Methorphan TAB.SR.12H 1 TABLET PO (22:49)
[2024-01-23] MEDS: Doxycycline 100 MG in Dextrose 5%-Water (250mL Bag) 250 ML 250 MG IV (22:49)
[2024-01-23] MEDS: Albumin Human 25% (100 mL) 25 GM/100 ML BAG IV (22:50)
[2024-01-23 23:14] LABS: BNP,B-Type NATRIURETIC PEPTIDE 1643.5 pg/mL (0-100)
[2024-01-23] MEDS: Piperacil/Tazobactam 3.375 GM in 0.9% Normal Saline (50mL MB+) 50 ML IV (23:14)
[2024-01-23] MEDS: Digoxin 250 MCG/ML Ampul 500 MCG IV (23:18)
[2024-01-23 23:22] LABS: Procalcitonin 0.09 ng/mL (0.00-0.09)
[2024-01-23 23:23] LABS: Troponin-I HS 30 pg/mL (3.0-78.0)
[2024-01-24] VITALS (27 sets, daily range): BP systolic 82–136; BP diastolic 55–115; PULSE 109–118; RESP 15–32; TEMP 36.1–37.1; O2SAT 94–100
[2024-01-24] MEDS: Acetaminophen 325 MG Tablet 650 MG PO ×2 (05:00→15:43)
[2024-01-24] MEDS: Vancomycin HCl 1,500 MG in 0.9% Normal Saline (500mL Bag) 500 ML 250 MG IV ×2 (05:01→18:53)
[2024-01-24 05:06] LABS: Absolute Lymphocyte Count 0.83 X10^3/uL (0.83-4.51); Absolute Neutrophil Count 5.8 X10^3/uL (2.0-7.7); Basophil# 0.05 X10^3/uL; Basophil% 0.7 % (0-1); Eosinophil# 0.12 X10^3/uL; Eosinophils% 1.6 % (0-5); Hemoglobin 12.2 g/dL (13.0-16.5); Lymphocyte # 0.83 X10^3/ul (0.83-4.51); Lymphocyte % 11.3 % (19-41); Mean Corp Hgb Conc 33.9 g/dL (32-36); Mean Corpuscular Hgb 31.1 pg (27.0-32.0); Mean Corpuscular Volume 91.8 fL (80-94); Mean Platelet Vol. 11.9 fl (6.2-12.0); Monocyte# 0.55 X10^3/uL; Monocyte% 7.5 % (0-10); NRBC Flagged by Analyzer 0 % (0-5); Neutrophil # 5.76 X10^3/uL (2.7-7.7); Neutrophil % 78.6 % (47-70); Platelet Count 118 K/mm3 (150-450); RBC Distribution Width CV 13.9 % (11.6-14.6); RBC Distribution Width SD 46.6 fl (35.1-43.9); Red Blood Count 3.92 M/mm3 (4.6-6.2); White Blood Count 7.3 K/mm3 (4.4-11.0)
[2024-01-24 05:17] LABS: International Normalized Ratio 1.7; Prothrombin Time (Protime)PT. 19.6 SECONDS (11.7-14.9)
[2024-01-24 05:22] LABS: Anion Gap 5 (5-15); BUN 18 mg/dL (7-18); BUN/Creat Ratio 17.3 RATIO (10-20); Calcium,Total 9.4 mg/dL (8.5-10.1); Chloride 99 mmol/L (98-107); Cholesterol 72 mg/dL (200); Creatinine, Serum 1.04 mg/dL (0.70-1.30); EST Glomerular Filtration Rate 75 mL/min (>60); Est Glom Filt Rate - Afr Amer 90 mL/min (>60); Estimated Creatinine Clearance 77.86 ml/min; Glucose 139 mg/dL (74-106); High Density Lipoprotein 38 mg/dL; Potassium 4.5 mmol/L (3.5-5.1); Sodium Level 131 mmol/L (136-145); Triglycerides 46 mg/dL; Very Low Density Lipoprotein 9 mg/dL (5-40)
[2024-01-24 05:41] LABS: Digoxin Level 2.48 ng/mL (0.80-2.00)
--- NOTE | 2024-01-24 05:55 | ECHOCS_ITS ---
Version 2 Reason For Study: HYPOTENSION Procedure This was a 2D Doppler, Color Flow transthoracic echocardiogram. The study was technically difficult. Contrast injection was performed. Exam performed portable in ICU/CCU. Left Ventricle Moderately dilated left ventricle. The left ventricular ejection fraction is 15 %. There is severe global hypokinesis of the left ventricle. Right Ventricle Normal RV size. ICD or pacer leads identified within the right ventricle. Normal systolic function. Atria The left atrium is moderately enlarged. Normal right atrium. Mitral Valve Normal mitral valve. Moderate (2+) eccentric mitral valve insufficiency. Tricuspid Valve Normal tricuspid valve. Pulmonic Valve Normal pulmonic valve. Great Vessels Normal aortic root. The pulmonary artery is normal size. The inferior vena cava is dilated. Pericardium/Pleural No pericardial effusion. Medication Diluted definity 2.5ml given slow IV push to enhance endocardial definition. MMode/2D Measurements & Calculations LVIDd: 6.3 cm IVSd: 1.2 cm LVOT diam: 2.1 cm LVIDs: 5.8 cm LVPWd: 1.0 cm LVOT area: 3.3 cm2 RVDd: 5.2 cm FS: 7.6 % asc Aorta Diam: 3.1 cm LAV(MOD-bp): 92.2 ml LVAd ap4: 49.3 cm2 LAV(MOD-bp) Indexed: 45.7 ml/m2 LVLd ap4: 9.3 cm LAV(MOD-sp2): 111.4 ml EDV(MOD-sp4): 212.4 ml LAV(MOD-sp4): 77.6 ml EDV(sp4-el): 221.7 ml LVAs ap4: 43.0 cm2 LVLs ap4: 8.8 cm ESV(MOD-sp4): 169.5 ml ESV(sp4-el): 177.5 ml EF(MOD-sp4): 20.2 % EF(sp4-el): 19.9 % LVAd ap2: 54.4 cm2 SV(MOD-sp4): 42.8 ml SV(MOD-sp2): 41.7 ml LVLd ap2: 9.2 cm EDV(MOD-sp2): 263.6 ml EDV(sp2-el): 273.1 ml LVAs ap2: 47.7 cm2 LVLs ap2: 8.4 cm ESV(MOD-sp2): 221.9 ml ESV(sp2-el): 230.2 ml EF(MOD-sp2): 15.8 % SV(sp4-el): 44.2 ml Ao sinus diam: 3.[address] [place]: 2.8 cm LA dimension(2D): 4.9 cm LA A4 area: 24.6 cm2 RA A4 area: 17.5 cm2 TAPSE: 0.36 cm Doppler Measurements & Calculations MV A max wayne: 85.0 cm/sec Lat Peak E' [place]: 2.9 cm/sec Med Peak E' [place]: 3.3 cm/sec Ao V2 max: 88.4 cm/sec LV V1 max: 65.0 cm/sec SV(LVOT): 26.7 ml Ao max P.1 mmHg LV V1 max P.7 mmHg Ao V2 mean: 69.4 cm/sec LV V1 mean P.84 mmHg Ao mean P.0 mmHg LV V1 mean: 41.7 cm/sec Ao V2 VTI: 11.7 cm LV V1 VTI: 8.0 cm AV (velocity ratio): 0.68 ROHITH(I,D): 2.3 cm2 ROHITH(V,D): 2.5 cm2 PA V2 max: 69.9 cm/sec TR max wayne: 219.6 cm/sec PA max PG (full): 1.1 mmHg TR max P.3 mmHg ECHO/Echo Complete W/ Contrast Interpretation Summary Dilated LV with EF of 15% Biatrial enlargement Modearte TR Moderate (2+) eccentric mitral valve insufficiency. There is severe global hypokinesis of the left ventricle. The left atrium is moderately enlarged. Contrast injection was performed. Ordering Physician: Junaid Kang Performed By: Sara Orellana RDCS
[2024-01-24] MEDS: Piperacil/Tazobactam 3.375 GM in 0.9% Normal Saline (50mL MB+) 50 ML IV ×3 (06:54→22:31)
[2024-01-24] MEDS: Pantoprazole Sodium 40 MG Tablet PO (08:24)
[2024-01-24] MEDS: Aspirin 81 MG TAB.CHEW PO (08:24)
[2024-01-24] MEDS: guaiFENesin/D-Methorphan TAB.SR.12H 1 TABLET PO ×2 (08:25→21:10)
[2024-01-24] MEDS: Ezetimibe 10 MG Tablet PO (08:25)
[2024-01-24 08:58] LABS: Troponin-I HS 37 pg/mL (3.0-78.0)
--- NOTE | 2024-01-24 09:09 | PCM.PN.HOSP ---
Subjective Subjective Doing well, Levophed turned off blood pressures systolics are in the 80s. He is alert and asymptomatic. He states that he is always runs low Objective Data Objective Data Vital Signs: Vital Signs Temp Pulse Resp BP Pulse Ox O2 Del Method O2 Flow Rate 97.1 F L 110 H 20 H 84/65 L 100 Room Air 2 01/24/24 08:22 01/24/24 08:22 01/24/24 08:22 01/24/24 08:22 01/24/24 08:22 01/24/24 08:22 01/24/24 04:00 Oxygen Flow Rate (L/min) 2 Oxygen Delivery Method Room Air Weight: 206 lb 5.643 oz Body Mass Index (BMI) 25.7 Intake & Output: Intake and Output for Last 24 Hours 01/23/24 01/24/24 01/25/24 03:59 03:59 03:59 Intake Total 2927.15 / 2936.55 1370.8 / 1370.8 Output Total 400 / 400 1550 / 1550 Balance 2527.15 / 2536.55 -179.2 / -179.2 Lab / Micro Data 01/24/24 04:53 01/24/24 04:53 Labs: Laboratory Results - last 24 hr 01/23/24 14:15: WBC 8.7, RBC 3.89 L, Hgb 11.9 L, Hct 35.2 L, MCV 90.5, MCH 30.6, MCHC 33.8, RDW Std Deviation 45.4 H, RDW Coeff of Nevaeh 13.9, Plt Count 108 L, MPV 11.9, Immature Gran % (Auto) 0.300, Neut % (Auto) 80.0 H, Lymph % (Auto) 8.9 L, [place] % (Auto) 8.8, Eos % (Auto) 1.5, Baso % (Auto) 0.5, Absolute Neuts (auto) 7.0, Absolute Lymphs (auto) 0.78 L, Nucleated RBC % 0, PT 22.3 H, INR 2.0, APTT 37.4 H, Sodium 129 L, Potassium 4.4, Chloride 95 L, Carbon Dioxide 27.0, Anion Gap 7, BUN 22 H, Creatinine 1.13, Estim Creat Clear Calc 71.82, Est GFR (MDRD) Af Amer 82, Est GFR (MDRD) Non-Af 68, BUN/Creatinine Ratio 19.5, Glucose 124 H, Calcium 9.3, Total Bilirubin 0.90, AST 49 H, ALT 115 H, Alkaline Phosphatase 94, Troponin I High Sens 27, Total Protein 6.2 L, Albumin 2.9 L, Globulin 3.3, Albumin/Globulin Ratio 0.9 01/23/24 15:05: Lactic Acid 1.9 01/23/24 15:50: Urine Color Yellow, Urine Clarity Clear, Urine pH 6.0, Ur Specific [place] 1.015, Urine Protein 15 H, Urine Glucose (UA) 1000 H, Urine Ketones Negative, Urine Occult Blood Negative, Urine Nitrite Negative, Urine Bilirubin Negative, Urine Urobilinogen 1 H, Ur Leukocyte Esterase Negative, Urine RBC 0-5 SEEN, Urine WBC 0-5 SEEN, Ur Squamous Epith Cells 0 SEEN, Urine Bacteria RARE, Urine Mucus 0 SEEN 01/23/24 19:20: Phosphorus 3.4, Magnesium 2.1 01/23/24 22:40: Troponin I High Sens 30, B-Natriuretic Peptide 1643.5 H, Procalcitonin 0.09, TSH 1.800 01/24/24 04:53: WBC 7.3, RBC 3.92 L, Hgb 12.2 L, Hct 36.0 L, MCV 91.8, MCH 31.1, MCHC 33.9, RDW Std Deviation 46.6 H, RDW Coeff of Nevaeh 13.9, Plt Count 118 L, MPV 11.9, Immature Gran % (Auto) 0.300, Neut % (Auto) 78.6 H, Lymph % (Auto) 11.3 L, [place] % (Auto) 7.5, Eos % (Auto) 1.6, Baso % (Auto) 0.7, Absolute Neuts (auto) 5.8, Absolute Lymphs (auto) 0.83, Nucleated RBC % 0, PT 19.6 H, INR 1.7, Sodium 131 L, Potassium 4.5, Chloride 99, Carbon Dioxide 26.0, Anion Gap 5, BUN 18, Creatinine 1.04, Estim Creat Clear Calc 77.86, Est GFR (MDRD) Af Amer 90, Est GFR (MDRD) Non-Af 75, BUN/Creatinine Ratio 17.3, Glucose 139 H, Calcium 9.4, Triglycerides 46, Cholesterol 72, LDL Cholesterol 25, VLDL Cholesterol 9, HDL Cholesterol 38 L, Digoxin 2.48 H* 01/24/24 08:30: Troponin I High Sens 37 Micro: Microbiology 01/23/24 19:17 Mucosa - Nose SARS-CoV-2, Influenza & RSV (PCR) - Final Radiography Diagnostic Testing: Radiology Impression Chest X-Ray 01/23/24 15:16 IMPRESSION: Atelectasis or infiltrate in both lung bases with probable small effusions. Electronically Signed: Christopher Quezada MD at 15:43 EDT , Physical Exam Narrative General: Alert, Oriented x3, confused, Cooperative, No apparent distress HEENT: Atraumatic, PERRLA, EOMI, Normocephalic Oral: Moist Mucosa Neck: Supple, No JVD Lungs: Diminished, Normal air movement, No rhonchi, No wheeze, No rales Cardiovascular: Regular rate, Regular Rhythm, Normal S1, Normal S2, No murmurs Abdomen: Soft, Non Tender, Non-Distended, No Hepato-splenomegaly Extremities: Edema, Capillary Refill Less than 3 Seconds Skin: No rashes, No breakdown Musculoskeletal: No Tenderness to Palpation of Joints or Extremities Neurological: No focal neurological deficits, Motor Exam 5/5 strength throughout, Sensory exam intact to light touch and pain Psych/Mental Status: Normal Affect, Appropriate Assessment & Plan Assessment/Plan (1) Lymphedema of both lower extremities: (2) Hypotension: PLAN: Plan 1. Cardiogenic shock/A-flutter/CAD status post CABG and stent/acute on chronic combined CHF exacerbation/HLD ? Levophed drip is off, he needed this overnight ? I will continue to hold Eliquis for his history of a flutter secondary to potential need for central line if he were to get worse ? He did receive a dose of albumin is currently on digoxin ? Echo is pending, previous echo in 2018 with an EF of 25% and RVSP of 31 mmHg ? Appreciate finisher machine assistance ? His metoprolol and his Entresto been held ? Continue with Zetia 2. GERD ? Stable ? Continue with PPI DVT: SCDs Charges/Coding Visit Charges Inpatient E&M: 58286 Subs Hosp L2
--- NOTE | 2024-01-24 10:16 | CASEMGMT ---
Addendum entered by Malu Rogers 01/24/24 13:22: ADDENDUM- Pt is PENITENTIARY status not intermediate per Jesenia at [facility]. EDDIE Ocampo Original Note: Social Work- SW called pt dtr and primary POA, Marah, to coordinate care. Dtr reports that she has spoken with [facility] and the hospitalist regarding a plan for potential d/c tomorrow. Dtr would like transport to be arranged, as both dtrs are working this weekend. DOMINIQUE called [facility] and spoke with Yovana who provided a fax of [phone] and a report number of [phone]. Yovana is uncertain if admissions will see [facility]. DOMINIQUE faxed preliminary information and also utilized [facility]. Green sheet and transport placed on chart. Plan: [facility], intermediate level of care when medically ready EDDIE Ocampo
--- NOTE | 2024-01-24 10:36 | PCM.PN.TICU ---
Objective Data Objective Data Vital Signs: Vital Signs Last response Temperature 36.2 C L 01/24/24 08:22 Temperature Source Temporal 01/24/24 08:22 Pulse Rate 110 H 01/24/24 08:22 Pulse Strength Weak (1+) 01/23/24 22:00 Respiratory Rate 20 H 01/24/24 08:22 Respiratory Effort Normal, Non-Labored 01/24/24 08:30 Respiratory Depth Normal 01/24/24 08:30 Respiratory Pattern Normal 01/24/24 08:30 Blood Pressure 84/65 L 01/24/24 08:22 Blood Pressure Mean 71 01/24/24 08:22 Blood Pressure Source Monitor 01/24/24 08:22 Blood Pressure Position Semi-Fowlers 01/24/24 08:22 Blood Pressure Location Right Arm 01/24/24 08:22 Pulse Ox 100 01/24/24 08:22 Oxygen Delivery Method Room Air 01/24/24 08:30 Oxygen Flow Rate (L/min) 2 01/24/24 04:00 I&O: I&O Last 24 Hours 01/23/24 01/23/24 01/24/24 11:59 23:59 11:59 Intake Total 2236.60 / 2538.95 2061.35 / 2061.35 Output Total 1950 / 1950 Balance 2236.60 / 2138.95 111.35 / 111.35 I&O: Total Stay 01/23/24 13:57 thru 01/24/24 08:22 Intake Total 4297.95 Output Total 1950 Balance 2347.95 Current Meds Ordered / Administered: Current meds ordered / Administered Generic Name Dose Route Start Last Admin Trade Name Freq PRN Reason Stop Dose Admin Acetaminophen 650 mg 01/23/24 20:18 01/24/24 05:00 Acetaminophen 325 Mg Tablet PO 650 mg Q6H PRN PRN Administration Pain 1-10 Or Fever>100.7 Albuterol/Ipratropium 3 ml 01/23/24 20:18 Ipratropium/Albuterol Sulfate 3 Ml Ampul.Neb INHALATION 4X/DAY PRN shortness of breath Artificial Tears 2 each 01/23/24 20:33 Carboxymethylcellulose Sodium Gel Dropperette EACH EYE 4X/DAY PRN dry eye(s) Aspirin 81 mg 01/24/24 08:00 01/24/24 08:24 Aspirin 81 Mg Tab.Chew PO 81 mg DAILYCM MICHAEL Administration Digoxin 250 mcg 01/24/24 10:00 01/24/24 09:23 Digoxin 250 Mcg Tablet PO Not Given DAILY MICHAEL Ezetimibe 10 mg 01/24/24 10:00 01/24/24 08:25 Ezetimibe 10 Mg Tablet PO 10 mg DAILY MICHAEL Administration Guaifenesin 1 tablet 01/23/24 22:00 01/24/24 08:25 Guaifenesin/D-Methorphan Tab.Sr.12h PO 1 tablet BID MICHAEL Administration Norepinephrine Bitartrate 8 mg 250 mls @ 9.375 mls/hr 01/23/24 17:45 01/24/24 08:22 / Sodium Chloride CONT INF 0 mcg/min .[id number] MICHAEL 0 mls/hr Titration Protocol 5 MCG/MIN Piperacillin Sod/Tazobactam 50 mls @ 12.5 mls/hr 01/23/24 22:00 01/24/24 06:54 Sod 3.375 gm/ Sodium Chloride IV 12.5 mls/hr Q8 MICHAEL Administration Vancomycin IV-PHARMACY TO DOSE 500 mls @ 250 mls/hr 01/23/24 20:18 1 each/ Sodium Chloride IV PRN PRN Rx to Dose Protocol Vancomycin HCl 1,500 mg/ 530 mls @ 250 mls/hr 01/24/24 05:00 01/24/24 08:22 Sodium Chloride IV Infused Q12H MICHAEL Infusion Doxycycline Hyclate 100 mg/ 260 mls @ 250 mls/hr 01/23/24 22:00 01/24/24 01:12 Dextrose IV Infused Q12 MICHAEL Infusion Nitroglycerin 0.4 mg 01/23/24 20:21 Nitroglycerin (Inpatient Use) 0.4 Mg Tab.Subl SL Q5M PRN CARDIAC/CHEST PAIN Pantoprazole Sodium 40 mg 01/24/24 10:00 01/24/24 08:24 Pantoprazole Sodium 40 Mg Tablet PO 40 mg DAILY MICHAEL Administration Prochlorperazine Edisylate 5 mg 01/23/24 20:18 Prochlorperazine 10 Mg/2 Ml Vial IV Q4H PRN PRN Breakthrough Nausea/Vomiting Sodium Chloride 10 - 40 ml 01/23/24 20:57 0.9% Saline Lock 10 Ml Syringe IV UD PRN SALINE FLUSH Vancomycin Protocol 1 lab 01/25/24 02:30 Vancomycin Trough/Random Due [facility] 01/25/24 06:30 DAILY [facility] Lab / Micro Data 01/24/24 04:53 01/24/24 04:53 Labs: Laboratory Results - last 24 hr 01/23/24 14:15: WBC 8.7, RBC 3.89 L, Hgb 11.9 L, Hct 35.2 L, MCV 90.5, MCH 30.6, MCHC 33.8, RDW Std Deviation 45.4 H, RDW Coeff of Nevaeh 13.9, Plt Count 108 L, MPV 11.9, Immature Gran % (Auto) 0.300, Neut % (Auto) 80.0 H, Lymph % (Auto) 8.9 L, Gage % (Auto) 8.8, Eos % (Auto) 1.5, Baso % (Auto) 0.5, Absolute Neuts (auto) 7.0, Absolute Lymphs (auto) 0.78 L, Nucleated RBC % 0, PT 22.3 H, INR 2.0, APTT 37.4 H, Sodium 129 L, Potassium 4.4, Chloride 95 L, Carbon Dioxide 27.0, Anion Gap 7, BUN 22 H, Creatinine 1.13, Estim Creat Clear Calc 71.82, Est GFR (MDRD) Af Amer 82, Est GFR (MDRD) Non-Af 68, BUN/Creatinine Ratio 19.5, Glucose 124 H, Calcium 9.3, Total Bilirubin 0.90, AST 49 H, ALT 115 H, Alkaline Phosphatase 94, Troponin I High Sens 27, Total Protein 6.2 L, Albumin 2.9 L, Globulin 3.3, Albumin/Globulin Ratio 0.9 01/23/24 15:05: Lactic Acid 1.9 01/23/24 15:50: Urine Color Yellow, Urine Clarity Clear, Urine pH 6.0, Ur Specific [place] 1.015, Urine Protein 15 H, Urine Glucose (UA) 1000 H, Urine Ketones Negative, Urine Occult Blood Negative, Urine Nitrite Negative, Urine Bilirubin Negative, Urine Urobilinogen 1 H, Ur Leukocyte Esterase Negative, Urine RBC 0-5 SEEN, Urine WBC 0-5 SEEN, Ur Squamous Epith Cells 0 SEEN, Urine Bacteria RARE, Urine Mucus 0 SEEN 01/23/24 19:20: Phosphorus 3.4, Magnesium 2.1 01/23/24 22:40: Troponin I High Sens 30, B-Natriuretic Peptide 1643.5 H, Procalcitonin 0.09, TSH 1.800 01/24/24 04:53: WBC 7.3, RBC 3.92 L, Hgb 12.2 L, Hct 36.0 L, MCV 91.8, MCH 31.1, MCHC 33.9, RDW Std Deviation 46.6 H, RDW Coeff of Nevaeh 13.9, Plt Count 118 L, MPV 11.9, Immature Gran % (Auto) 0.300, Neut % (Auto) 78.6 H, Lymph % (Auto) 11.3 L, [place] % (Auto) 7.5, Eos % (Auto) 1.6, Baso % (Auto) 0.7, Absolute Neuts (auto) 5.8, Absolute Lymphs (auto) 0.83, Nucleated RBC % 0, PT 19.6 H, INR 1.7, Sodium 131 L, Potassium 4.5, Chloride 99, Carbon Dioxide 26.0, Anion Gap 5, BUN 18, Creatinine 1.04, Estim Creat Clear Calc 77.86, Est GFR (MDRD) Af Amer 90, Est GFR (MDRD) Non-Af 75, BUN/Creatinine Ratio 17.3, Glucose 139 H, Calcium 9.4, Triglycerides 46, Cholesterol 72, LDL Cholesterol 25, VLDL Cholesterol 9, HDL Cholesterol 38 L, Digoxin 2.48 H* 01/24/24 08:30: Troponin I High Sens 37 Micro: Microbiology 01/23/24 19:17 Mucosa - Nose SARS-CoV-2, Influenza & RSV (PCR) - Final Imaging Radiology Impression Chest X-Ray 01/23/24 15:16 IMPRESSION: Atelectasis or infiltrate in both lung bases with probable small effusions. Electronically Signed: Christopher Quezada MD at 15:43 EDT , Assessment and Plan . Assessment and plan: Critical Care Time: The entirety of this encounter was done via Telemedicine Subjective Subjective Pt seen and examined. No acute events. Off NEpi. Physical Exam: Gen- NAD, well-developed HEENT- MMM. Sclera anicteric Resp- +crackles. nl chest wall movement CV- tachy; No m/g/r Abd- Soft, NT, ND Ext- +LE edema. Cold extremities, palpable pulses Skin- LE wounds and mild erythema, serous drainage (not purulent), no warmth/TTP currently Neuro- Grossly nonfocal. Alert and answers questions appropriately, but slow to respond and very tangential & mild confusion I have reviewed the pertinent vital sign, laboratory, and imaging data. ASSESSMENT/PLAN: #Shock - may be multifactorial for cardiogenic/low EF +- sepsis, BP meds in setting of BRIAN #Acute hypoxic respiratory failure #Pulmonary infiltrates - pulmonary edema vs possible PNA #CHF exacerbation - EF 30% on prior TTE 2021 #Afib w/ RVR - s/p PM on eliquis #Chronic LE wounds/seeping #Elevated R hemidiaphragm #Hyponatremia #BRIAN #Transaminitis #Anemia/thrombocytopenia #Chronic problems: h/o non-hodgkin?s lymphoma, dementia, schizophrenia, CAD s/p CABG, PAD s/p iliac stent, panic disorder, DM, GERD, tobacco abuse -Weaned off levophed overnight; pt with chronic hypotension; Lactate wnl -On 2L NC, wean to keep sats > 90% -Monitor for worsening RVR. Cont home digoxin for now, check level -Ensure electrolytes well-repleted. Check TSH -Trend trop, check BNP. F/U echo -Empiric abx for possible PNA/?LE wound infection. f/u Cx. COVID/flu/RSV neg. Check procal, CRP. May need leg imaging if worsening --> low suspicion for active infection; can de-esc as clinically indicated -Follow Na, Cr, UOP -Monitor LFTs -Cont psych meds from [facility] -Wound care PO diet Restart Eliquis Guarded prognosis Can downgrade from my stand point. Will sign off but available as needed. The entirety of this encounter was completed via telemedicine
[2024-01-24] MEDS: Doxycycline 100 MG in Dextrose 5%-Water (250mL Bag) 250 ML 250 MG IV ×2 (11:20→21:08)
[2024-01-24 12:22] LABS: Troponin-I HS 30 pg/mL (3.0-78.0)
[2024-01-24 15:48] LABS: Troponin-I HS 29 pg/mL (3.0-78.0)
[2024-01-24] MEDS: Ipratropium/Albuterol Sulfate 3 ML AMPUL.NEB INHALATION (19:04)
[2024-01-25] VITALS (18 sets, daily range): BP systolic 112–143; BP diastolic 77–107; PULSE 60–113; RESP 18–30; TEMP 36.3–37.1; O2SAT 96–99; BMI 26.0
[2024-01-25] MEDS: Ipratropium/Albuterol Sulfate 3 ML AMPUL.NEB INHALATION ×2 (00:13→07:15)
[2024-01-25 04:47] LABS: Absolute Lymphocyte Count 0.95 X10^3/uL (0.83-4.51); Absolute Neutrophil Count 5.6 X10^3/uL (2.0-7.7); Basophil# 0.06 X10^3/uL; Basophil% 0.8 % (0-1); Eosinophil# 0.08 X10^3/uL; Eosinophils% 1.1 % (0-5); Hemoglobin 12.7 g/dL (13.0-16.5); Lymphocyte # 0.95 X10^3/ul (0.83-4.51); Lymphocyte % 12.8 % (19-41); Mean Corp Hgb Conc 34.3 g/dL (32-36); Mean Corpuscular Hgb 31.1 pg (27.0-32.0); Mean Corpuscular Volume 90.5 fL (80-94); Monocyte# 0.73 X10^3/uL; Monocyte% 9.9 % (0-10); NRBC Flagged by Analyzer 0 % (0-5); Neutrophil # 5.56 X10^3/uL (2.7-7.7); Platelet Count 112 K/mm3 (150-450); RBC Distribution Width SD 46.4 fl (35.1-43.9); Red Blood Count 4.09 M/mm3 (4.6-6.2); White Blood Count 7.4 K/mm3 (4.4-11.0)
[2024-01-25 04:57] LABS: Anion Gap 7 (5-15); BUN 22 mg/dL (7-18); Calcium,Total 9.5 mg/dL (8.5-10.1); Chloride 101 mmol/L (98-107); EST Glomerular Filtration Rate 70 mL/min (>60); Est Glom Filt Rate - Afr Amer 85 mL/min (>60); Estimated Creatinine Clearance 73.62 ml/min; Glucose 113 mg/dL (74-106); Potassium 4.6 mmol/L (3.5-5.1); Sodium Level 130 mmol/L (136-145)
[2024-01-25 04:59] LABS: Vancomycin, Trough Level 23.9 ug/mL (5.0-15.0)
[2024-01-25] MEDS: Vancomycin Trough/Random Due 1 LAB MC (05:15)
[2024-01-25] MEDS: Piperacil/Tazobactam 3.375 GM in 0.9% Normal Saline (50mL MB+) 50 ML IV ×2 (05:15→12:20)
--- NOTE | 2024-01-25 05:59 | PCM.RX.CS ---
Consult Antibiotic Management Pharmacy has been consulted to manage selected antibiotic: Vancomycin Type of Intervention Type of Consult: Follow-up Labs Labs: Sodium 130 mmol/L (136-145) L 01/25/24 04:20 Potassium 4.6 mmol/L (3.5-5.1) 01/25/24 04:20 Chloride 101 mmol/L (98-107) 01/25/24 04:20 Carbon Dioxide 22.0 mmol/L (21.0-32.0) 01/25/24 04:20 Anion Gap 7 (5-15) 01/25/24 04:20 BUN 22 mg/dL (7-18) H 01/25/24 04:20 Creatinine 1.10 mg/dL (0.70-1.30) 01/25/24 04:20 Est GFR (MDRD) Af Amer 85 mL/min (>60) 01/25/24 04:20 Est GFR (MDRD) Non-Af 70 mL/min (>60) 01/25/24 04:20 BUN/Creatinine Ratio 20.0 RATIO (10-20) 01/25/24 04:20 Glucose 113 mg/dL (74-106) H 01/25/24 04:20 Vancomycin Trough 23.9 ug/mL (5.0-15.0) H 01/25/24 04:32 Microbiology Microbiology: Microbiology 01/24/24 15:42 Urine Catheter - Partida Legionella Antigen - Final 01/24/24 15:42 Urine Catheter - Partida Streptococcus pneumoniae Antigen (M - Final 01/23/24 19:17 Mucosa - Nose SARS-CoV-2, Influenza & RSV (PCR) - Final Goal Trough Goal Trough: 15-20 mcg/mL Pharmacy Plan for Drug Dosing Pharmacy Plan for Drug Dosing: Pharmacy Service will continue to monitor and adjust dosing as required. TROUGH 23.9. HOLD DOSE AND DRAW RANDOM LEVEL IN 8 HOURS Follow-Up Labs Follow-Up Labs: Trough: Vancomycin Date/Time Labs Ordered Labs to be done on [date and time ordered]: 01/24 @ 1231
[2024-01-25] MEDS: Digoxin 250 MCG Tablet PO (08:34)
[2024-01-25] MEDS: Aspirin 81 MG TAB.CHEW PO (08:34)
[2024-01-25] MEDS: guaiFENesin/D-Methorphan TAB.SR.12H 1 TABLET PO (08:35)
[2024-01-25] MEDS: Pantoprazole Sodium 40 MG Tablet PO (08:35)
[2024-01-25] MEDS: Ezetimibe 10 MG Tablet PO (08:35)
[2024-01-25 09:07] LABS: CRP, High Sensitivity 60.59 mg/L (0.00-3.00)
[2024-01-25] MEDS: Doxycycline 100 MG in Dextrose 5%-Water (250mL Bag) 250 ML 250 MG IV (11:16)
--- NOTE | 2024-01-25 13:44 | DCINST_ITS ---
Discharge Instructions Diet Discharge Diet: Low fat / Low cholesterol Activity Discharge Activity: Return to Normal Activity Dressing / Incision Call your doctor if you observe: Fever of 101 or Higher, Shortness of breath, Dizziness, Fainting spells, Swelling in the ankles, Chest pain and Increased palpitations (irregular heartbeat) Follow Up Care Test Results: Test results from this visit will be discussed in further detail at your follow- up appointment, if applicable. Discharge Plan Admission Admit Date/Time: 01/23/24 18:08 Attending Provider: Edwar Murphy Primary Care Provider: Roseanne Bishop Consulting Providers: Patrick Paredes; Chas Ferrari; Cy Delong; Richar Morgan; Fitz Mar; René Mitchell; eWndy Groves; Leo Arredondo; Boris Acosta; Nga Casey; Mojgan Villanueva; Dallin Mc; Stephen Pagan; Frankie Martinez; Percy Demarco; Cornelio Barnes; Tyshawn Little; Junaid Kang Instructions Additional Instructions / Restrictions: Follow-up CBC, BMP, digoxin level. Discharge Orders/Prescriptions Prescriptions: Continued nitroglycerin 0.4 mg tablet, sublingual 0.4 mg sublingual Q5-15M PRN (Reason: Chest Pain) Rx Instructions: do not exceed 3 doses per episode omeprazole 20 mg capsule,delayed release(DR/EC) 20 mg PO DAILY cholecalciferol (vitamin D3) 50 mcg (2,000 unit) tablet 50 mcg PO DAILY digoxin 250 mcg (0.25 mg) tablet 0.25 mg PO DAILY acetaminophen 500 mg tablet 500 mg PO TID metoprolol succinate 25 mg tablet extended release 24 hr 25 mg PO BID Entresto 49-51 mg tablet 0.5 tab PO BID ezetimibe 10 mg tablet 10 mg PO DAILY Invega Sustenna 156 mg/mL syringe 156 mg IM Q28D saw palmetto 450 mg capsule 450 mg PO BID Rx Instructions: give with food (meal/snack) sertraline 25 mg tablet 25 mg PO QHS dapagliflozin propanediol [Farxiga] 10 mg tablet 10 mg PO DAILY furosemide [Lasix] 20 mg tablet 20 mg PO QAM Patient Comments: 01/23/24- STARTED 40MG DAILY FOR 3 DAYS, THEN GO BACK TO 20MG DAILY albuterol sulfate 90 mcg/actuation HFA aerosol inhaler 2 puff inhalation Q4-6H PRN (Reason: shortness of breath or wheezing) loratadine [Claritin] 10 mg tablet 10 mg PO QDAY aspirin 81 MG tablet,chewable 81 mg PO DAILY Nexletol 180 mg tablet 180 mg PO QHS Eliquis 5 mg tablet 5 mg PO BID Arctic Relief 0.2-3.5 % gel 1 applic topical TID PRN (Reason: pain) Rx Instructions: rub in gently and completely naproxen sodium [Aleve] 220 mg capsule 220 mg PO BID PRN (Reason: pain) guaifenesin [Adult Tussin Chest Congestion] 100 mg/5 mL liquid 200 mg PO Q6H PRN (Reason: cough) ipratropium-albuterol 0.5 mg-3 mg(2.5 mg base)/3 mL solution for nebulization 3 ml inhalation 4X/DAY PRN (Reason: shortness of breath) carboxymethylcellulose sodium [Refresh Liquigel] 1 % drops, liquid gel 2 drp EACH EYE 4X/DAY PRN (Reason: dry eye(s)) Referrals / Follow Up: Roseanne Bishop MD [Primary Care Provider] - Disposition Disposition (needs filled in before D/C Order can be placed): Assisted Living
--- NOTE | 2024-01-25 17:19 | DS.PCM_ITS ---
Providers Date of Admission: 01/23/24 Primary Care Physician: Dr. Roseanne Bishop MD Consultations 01/23/24 19:21 Consult: Precision Devices Inspector/Tester / Pulmonary Medicine Routine Consulting Provider: Intensivists/Pulmonary Med Reason for Consult: cardiogenic shock from heart failure EMERGENT Consult: No Notified: Yes Date Notified: 01/23/24 Time Notified: 19:21 Method of Notification: Verbal 01/23/24 20:18 Consult: Precision Devices Inspector/Tester / Pulmonary Medicine Routine Consulting Provider: Intensivists/Pulmonary Med Reason for Consult: HYPOTENSION EMERGENT Consult: No Notified: Yes Date Notified: 01/23/24 Time Notified: 18:09 Method of Notification: Verbal Reason For Visit: HYPOTENSION Diagnosis Discharge Diagnosis (1) Lymphedema of both lower extremities: Status: Acute Code(s): I89.0 - Lymphedema, not elsewhere classified (2) Hypotension: Status: Acute Code(s): I95.9 - Hypotension, unspecified Medications at Discharge Home Medications aspirin 81 mg chewable tablet 81 mg PO DAILY heart 10/09/18 bempedoic acid 180 mg tablet (Nexletol) 180 mg PO QHS 08/28/20 nitroglycerin 0.4 mg sublingual tablet 0.4 mg sublingual Q5-15M PRN Chest Pain 07/25/21 apixaban 5 mg tablet (Eliquis) 5 mg PO BID 08/16/21 cholecalciferol (vitamin D3) 50 mcg (2,000 unit) tablet 50 mcg PO DAILY 07/08/22 omeprazole 20 mg capsule,delayed release 20 mg PO DAILY 07/08/22 acetaminophen 500 mg tablet 500 mg PO TID 07/25/22 digoxin 250 mcg (0.25 mg) tablet 0.25 mg PO DAILY 07/25/22 ezetimibe 10 mg tablet 10 mg PO DAILY 07/25/22 metoprolol succinate 25 mg tablet,extended release 24 hr 25 mg PO BID 07/25/22 paliperidone palmitate 156 mg/mL intramuscular syringe (Invega Sustenna) 156 mg IM Q28D 07/25/22 sacubitril 49 mg-valsartan 51 mg tablet (Entresto) 0.5 tab PO BID 07/25/22 saw palmetto 450 mg capsule 450 mg PO BID 01/21/23 dapagliflozin propanediol 10 mg tablet (Farxiga) 10 mg PO DAILY 07/22/23 sertraline 25 mg tablet 25 mg PO QHS 07/22/23 albuterol sulfate 90 mcg/actuation aerosol inhaler 2 puff inhalation Q4-6H PRN shortness of breath or wheezing 12/30/23 furosemide 20 mg tablet (Lasix) 20 mg PO QAM 12/30/23 loratadine 10 mg tablet (Claritin) 10 mg PO QDAY 12/30/23 camphor-menthol 0.2 %-3.5 % topical gel (Arctic Relief) 1 applic topical TID PRN pain 01/23/24 carboxymethylcellulose sodium 1 % eye liquid gel drops (Refresh Liquigel) 2 drp EACH EYE 4X/DAY PRN dry eye(s) 01/23/24 guaifenesin 100 mg/5 mL oral liquid (Adult Tussin Chest Congestion) 200 mg PO Q6H PRN cough 01/23/24 ipratropium 0.5 mg-albuterol 3 mg (2.5 mg base)/3 mL nebulization soln 3 ml inhalation 4X/DAY PRN shortness of breath 01/23/24 naproxen sodium 220 mg capsule (Aleve) 220 mg PO BID PRN pain 01/23/24 Hospital Course Operations None Procedures 2-D Echocardiogram Summary of Care Provided Minutes Spent on Discharge: 32 Hospital Course: Per HPI: THAD NAIDU, is a 73 M who was brought to ED from [facility] for being hypotensive, tachycardic and increased shortness of breath. As per [facility], patient has very short of breath and Lasix was given and further dropped her blood pressure. In ED, blood pressure was 89/68, heart rate 113/min. Pulse ox 97% on room air. Afebrile. Patient also has bilateral lower extremity seepage of fluid which is chronic. Patient has advanced dementia therefore could not tell about chest pain or fever. Patient was chewing nicotine gum as he still smokes cigar. History mainly taken from the medical record and [facility] data. Hospital Course: 1. Cardiogenic shock/A-flutter/CAD status post CABG and stent/acute on chronic combined CHF exacerbation/HLD?73-year-old male presented to the hospital with hypotension and tachycardia with increased shortness of breath. He was found on echocardiogram to have a reduced EF of 15% several months ago it was 35%. It was unclear initially as to what the etiology of his shock was as he had some weeping edema in his lower extremities so there was concern for the positive cellulitis versus pneumonia secondary to pulmonary infiltrates seen on x-ray. However he did not have a leukocytosis or fever. He was started on broad- spectrum antibiotics, and culture data so far has been negative with no growth. His home blood pressure medications were held and he will started on Levophed which he required for less than 24 hours and was able to maintain his blood pressures elevated after that. Of note his digoxin level was toxic on admission but did normalize by the end of his stay. Also on admission his BNP was elevated at 1600 however for comparison it was 1400 in 2019 and troponins were unremarkable on admission. I was able to discuss the discharge plan with the daughter today and she had stated that he had gone to the [facility] in the beginning of December and she states that he ate a lot of high salt foods for 3 days which I believe has likely led to the deterioration in his EF. We discussed in the setting of his dementia further interventions including heart cath and cardiology consultation however they did not feel that at this time they would like to proceed with that course. We did have a 20-minute discussion advance care planning discussing the differences in CODE STATUS as well as the possibility of palliative care versus hospice care. Discussed with her the plan for discharge today she expressed understanding the risk benefits of sending him back to the assisted living and is okay to proceed with discharge today. Can resume his digoxin on discharge as his level is 1.9 recommend close outpatient monitoring and adjustment of his medications, all of his home blood pressure medications have been reinitiated. Physical Exam Narrative General: Alert, Oriented x3, confused, Cooperative, No apparent distress HEENT: Atraumatic, PERRLA, EOMI, Normocephalic Oral: Moist Mucosa Neck: Supple, No JVD Lungs: Diminished, Normal air movement, No rhonchi, No wheeze, No rales Cardiovascular: Regular rate, Regular Rhythm, Normal S1, Normal S2, No murmurs Abdomen: Soft, Non Tender, Non-Distended, No Hepato-splenomegaly Extremities: Edema, Capillary Refill Less than 3 Seconds Skin: No rashes, No breakdown Musculoskeletal: No Tenderness to Palpation of Joints or Extremities Neurological: No focal neurological deficits, Motor Exam 5/5 strength throughout, Sensory exam intact to light touch and pain Psych/Mental Status: Normal Affect, Appropriate Weight / BMI Weight Weight: 208 lb 5.389 oz Body Mass Index (BMI) 26.0 ABG / Lab / Microbiology Data 01/25/24 04:20 01/25/24 04:20 Laboratory: Laboratory Results - last 24 hr 01/23/24 22:40: C-React Prot High Sens 60.59 H 01/25/24 04:20: WBC 7.4, RBC 4.09 L, Hgb 12.7 L, Hct 37.0 L, MCV 90.5, MCH 31.1, MCHC 34.3, RDW Std Deviation 46.4 H, RDW Coeff of Nevaeh 14.0, Plt Count 112 L, MPV 12.0, Immature Gran % (Auto) 0.400, Neut % (Auto) 75.0 H, Lymph % (Auto) 12.8 L, [place] % (Auto) 9.9, Eos % (Auto) 1.1, Baso % (Auto) 0.8, Absolute Neuts (auto) 5.6, Absolute Lymphs (auto) 0.95, Nucleated RBC % 0, Sodium 130 L, Potassium 4.6, Chloride 101, Carbon Dioxide 22.0, Anion Gap 7, BUN 22 H, Creatinine 1.10, Estim Creat Clear Calc 73.62, Est GFR (MDRD) Af Amer 85, Est GFR (MDRD) Non-Af 70, BUN/Creatinine Ratio 20.0, Glucose 113 H, Calcium 9.5 01/25/24 04:32: Vancomycin Trough 23.9 H Microbiology: Microbiology 01/23/24 15:05 Blood Culture (Wb) - Right Forearm Blood Culture - Preliminary No growth in 48 hours. 01/23/24 15:50 Urine Catheter - Catheter Urine Culture - Final Mixed Gram Positive Organisms 01/24/24 15:42 Urine Catheter - Partida Legionella Antigen - Final 01/24/24 15:42 Urine Catheter - Partida Streptococcus pneumoniae Antigen (M - Final 01/23/24 19:17 Mucosa - Nose SARS-CoV-2, Influenza & RSV (PCR) - Final D/C Instructions Discharge Diet: Low fat / Low cholesterol Call your doctor if you observe: Fever of 101 or Higher, Shortness of breath, Dizziness, Fainting spells, Swelling in the ankles, Chest pain and Increased palpitations (irregular heartbeat) Meaningful Use Info Meaningful Use Meaningful Use Diagnoses (Choose all that apply): None applicable Ischemic Stroke Statin Dosing Therapy Reference: STATIN DOSE THERAPY REFERENCE: * Patients > 75 years receive moderate or high dose statin therapy. * Patients 75 years or YOUNGER should receive HIGH intensity statin dose unless contraindicated. You will be required to document reason for non-treatment if statin daily dose does not meet guidelines. HIGH DOSE STATIN THERAPY DAILY Atorvastatin > than or = to 40 mg Rosuvastatin > than or = to 20 mg Amlodipine + Atorvastatin > than or = to 2.5/40 mg Ezetimibe + Simvastatin 10/80 mg Simvastatin 80mg Discharge Plan Admission Admit Date/Time: 01/23/24 18:08 Attending Provider: Edwar Murphy Primary Care Provider: Roseanne Bishop Consulting Providers: Patrick Paredes; Chas Ferrari; Cy Delong; Richar Morgan; Fitz Mar; René Mitchell; Wendy Groves; Leo Arredondo; Boris Acosta; Nga Casey; Mojgan Villanueva; Dallin Mc; Stephen Pagan; Frankie Martinez; Percy Demarco; Cornelio Barnes; Tyshawn Little; Junaid Kang Instructions Additional Instructions / Restrictions: Follow-up CBC, BMP, digoxin level. Discharge Orders/Prescriptions Prescriptions: Continued nitroglycerin 0.4 mg tablet, sublingual 0.4 mg sublingual Q5-15M PRN (Reason: Chest Pain) Rx Instructions: do not exceed 3 doses per episode omeprazole 20 mg capsule,delayed release(DR/EC) 20 mg PO DAILY cholecalciferol (vitamin D3) 50 mcg (2,000 unit) tablet 50 mcg PO DAILY digoxin 250 mcg (0.25 mg) tablet 0.25 mg PO DAILY acetaminophen 500 mg tablet 500 mg PO TID metoprolol succinate 25 mg tablet extended release 24 hr 25 mg PO BID Entresto 49-51 mg tablet 0.5 tab PO BID ezetimibe 10 mg tablet 10 mg PO DAILY Invega Sustenna 156 mg/mL syringe 156 mg IM Q28D saw palmetto 450 mg capsule 450 mg PO BID Rx Instructions: give with food (meal/snack) sertraline 25 mg tablet 25 mg PO QHS dapagliflozin propanediol [Farxiga] 10 mg tablet 10 mg PO DAILY furosemide [Lasix] 20 mg tablet 20 mg PO QAM Patient Comments: 01/23/24- STARTED 40MG DAILY FOR 3 DAYS, THEN GO BACK TO 20MG DAILY albuterol sulfate 90 mcg/actuation HFA aerosol inhaler 2 puff inhalation Q4-6H PRN (Reason: shortness of breath or wheezing) loratadine [Claritin] 10 mg tablet 10 mg PO QDAY aspirin 81 MG tablet,chewable 81 mg PO DAILY Nexletol 180 mg tablet 180 mg PO QHS Eliquis 5 mg tablet 5 mg PO BID Arctic Relief 0.2-3.5 % gel 1 applic topical TID PRN (Reason: pain) Rx Instructions: rub in gently and completely naproxen sodium [Aleve] 220 mg capsule 220 mg PO BID PRN (Reason: pain) guaifenesin [Adult Tussin Chest Congestion] 100 mg/5 mL liquid 200 mg PO Q6H PRN (Reason: cough) ipratropium-albuterol 0.5 mg-3 mg(2.5 mg base)/3 mL solution for nebulization 3 ml inhalation 4X/DAY PRN (Reason: shortness of breath) carboxymethylcellulose sodium [Refresh Liquigel] 1 % drops, liquid gel 2 drp EACH EYE 4X/DAY PRN (Reason: dry eye(s)) Referrals / Follow Up: Roseanne Bishop MD [Primary Care Provider] - Disposition Disposition (needs filled in before D/C Order can be placed): Assisted Living Charges/Coding Visit Charges Inpatient E&M: 91561 Disch Hosp >30min
== END 2024-01-25 16:40 | disposition home or self-care (01) | DRG 291 ==
LOC: ED 17:45 → ICU 18:49
PROVIDERS: Family Medicine; Internal Medicine Pulmonary Disease; Admitting Provider Internal Medicine; Emergency Provider Emergency Medicine; PCP Internal Medicine; Visit Provider Family Medicine
DX: R57.0 Cardiogenic shock (principal); I50.43 Acute on chronic combined systolic (congestive) and diastolic (congestive) heart failure; I48.92 Unspecified atrial flutter; F25.0 Schizoaffective disorder, bipolar type; I11.0 Hypertensive heart disease with heart failure; E11.51 Type 2 diabetes mellitus with diabetic peripheral angiopathy without gangrene; F03.C0 Unspecified dementia, severe, without behavioral disturbance, psychotic disturbance, mood disturbance, and anxiety; I25.5 Ischemic cardiomyopathy; I48.91 Unspecified atrial fibrillation; I25.10 Atherosclerotic heart disease of native coronary artery without angina pectoris; I89.0 Lymphedema, not elsewhere classified; E78.5 Hyperlipidemia, unspecified; F17.290 Nicotine dependence, other tobacco product, uncomplicated; I25.2 Old myocardial infarction; I95.89 Other hypotension; Z79.01 Long term (current) use of anticoagulants; F41.0 Panic disorder [episodic paroxysmal anxiety]; Z79.82 Long term (current) use of aspirin; Z95.5 Presence of coronary angioplasty implant and graft; Z95.1 Presence of aortocoronary bypass graft; Z95.810 Presence of automatic (implantable) cardiac defibrillator; Z79.84 Long term (current) use of oral hypoglycemic drugs; Z79.899 Other long term (current) drug therapy; Z85.72 Personal history of non-Hodgkin lymphomas
CPT/HCPCS: 71045; 78452; 80048; 80053; 80061; 80162; 80202; 81001; 83605; 83735; 83880; 84100; 84145; 84443; 84484; 85025; 85610; 85730; 86141; 87040; 87086; 87088; 87449; 87631; 93005; 93017; 93306; 94640; 97162; 97166; 99285; A9500; J7030; J7040; J7050; P9047; Q9957; A4216; C8929; J0295; J2785

== ENCOUNTER 2024-02-25 18:36 | Inpatient (IN) | payer MEDICARE, SELFPAY ==
[2024-02-25] VITALS (11 sets, daily range): BP systolic 79–94; BP diastolic 57–81; PULSE 80–99; RESP 16–30; TEMP 36.6–37.2; O2SAT 96–100; BMI 22.8
[2024-02-25 19:25] LABS: Absolute Lymphocyte Count 1.42 X10^3/uL (0.83-4.51); Basophil# 0.05 X10^3/uL; Basophil% 0.3 % (0-1); Eosinophil# 0.01 X10^3/uL; Eosinophils% 0.1 % (0-5); Hematocrit 32.5 % (40-54); Hemoglobin 11.1 g/dL (13.0-16.5); Lymphocyte # 1.42 X10^3/ul (0.83-4.51); Lymphocyte % 7.4 % (19-41); Mean Corp Hgb Conc 34.2 g/dL (32-36); Mean Corpuscular Hgb 29.9 pg (27.0-32.0); Mean Corpuscular Volume 87.6 fL (80-94); Monocyte% 7.8 % (0-10); NRBC Flagged by Analyzer 0 % (0-5); Neutrophil # 15.97 X10^3/uL (2.7-7.7); Neutrophil % 83.5 % (47-70); Platelet Count 184 K/mm3 (150-450); RBC Distribution Width CV 15.6 % (11.6-14.6); RBC Distribution Width SD 47.8 fl (35.1-43.9); Red Blood Count 3.71 M/mm3 (4.6-6.2); White Blood Count 19.1 K/mm3 (4.4-11.0)
[2024-02-25] MEDS: 0.9% Normal Saline (500mL Bag) 500 ML 1000 ML IV (19:53)
[2024-02-25 20:17] LABS: Color, Urine Yellow (Yellow); Glucose, Dipstick 50 mg/dl (Normal); Ketone-Dipstick 5 mg/dl (Negative); Leukocyte Esterase-Dipstick 25 /ul (Negative); Nitrite-Dipstick Negative (Negative); Occult Blood-Urine 150 /ul (Negative); Protein-Dipstick 30 mg/dl (Negative); Specific Gravity, Urine 1.025 (1.002-1.030); Urine Clarity Sl. Cloudy (Clear); Urine Urobilinogen 4 mg/dl (Normal)
[2024-02-25 20:20] LABS: Lactic Acid 1.9 mmol/L (0.4-1.9)
[2024-02-25] MEDS: 0.9% Normal Saline (500mL Bag) 500 ML 999 ML IV ×2 (20:20→21:58)
[2024-02-25 20:28] LABS: Bacteria 1+ /hpf (None Seen); Hyaline Cast 50-100 SEEN /lpf (0-5); Mucous, Urine 2+ /hpf (<or=2+); Red Blood Cells-Urine 0-5 SEEN /hpf (0-5); Squamous Epithelial Cells - UA 0-5 SEEN /hpf (0-5); Transitional Epithelial - Ur 0-5 SEEN /hpf (0-5); Urine Bilirubin Dipstick 3 mg/dL (Negative); White Blood Cells 0-5 SEEN /hpf (0-5)
[2024-02-25 21:52] LABS: BNP,B-Type NATRIURETIC PEPTIDE 1930.8 pg/mL (0-100)
[2024-02-25 22:05] LABS: ALB/GLOB Ratio 0.9 RATIO (0.9-2.4); AST(SGOT) 191 U/L (15-37); Alanine Aminotransfer ALT/SGPT 72 U/L (16-61); Albumin, Serum 2.9 g/dL (3.2-5.0); Alkaline Phosphatase 71 U/L (45-117); Anion Gap 10 (5-15); BUN 37 mg/dL (7-18); BUN/Creat Ratio 22.3 RATIO (10-20); Calcium,Total 9.9 mg/dL (8.5-10.1); Chloride 94 mmol/L (98-107); Creatinine, Serum 1.66 mg/dL (0.70-1.30); EST Glomerular Filtration Rate 44 mL/min (>60); Est Glom Filt Rate - Afr Amer 53 mL/min (>60); Estimated Creatinine Clearance 47.11 ml/min; Globulin 3.2 g/dL (2.2-4.2); Glucose 104 mg/dL (74-106); Potassium 4.4 mmol/L (3.5-5.1); Protein, Total 6.1 g/dL (6.4-8.2); Reflex Troponin-HS? (from REC) Y; Sodium Level 126 mmol/L (136-145); Troponin-I HS (w/2H Reflex) 134 pg/mL (3.0-78.0)
[2024-02-25 22:43] LABS: Amphetamine Urine VISTA NEGATIVE (<1000 ng/mL); Barbiturate Urine VISTA NEGATIVE (< 200 ng/mL); Benzodiazepine Urine VISTA NEGATIVE (< 200 ng/mL); Cocaine Urine VISTA NEGATIVE (< 300 ng/mL); Ecstacy Urine VISTA NEGATIVE (< 500 ng/mL); Methadone Urine VISTA NEGATIVE (< 300 ng/mL); PCP Urine VISTA NEGATIVE (< 25 ng/mL); THC Urine VISTA NEGATIVE (< 50 ng/mL); Vista UDS pH Range 4
[2024-02-25] MEDS: Vancomycin HCl 1,250 MG in 0.9% Normal Saline (250mL Bag) 250 ML 167 MG IV (22:51)
[2024-02-25 23:05] LABS: Troponin-I HS 118 pg/mL (3.0-78.0)
[2024-02-25] MEDS: Acetaminophen 500 MG Tablet PO (23:42)
[2024-02-25] MEDS: APIXABAN 5 MG TABLET PO (23:43)
[2024-02-25] MEDS: Lactobacillis Acidophilus 1 CAP PO (23:43)
[2024-02-25] MEDS: Piperacil/Tazobactam 4.5 GM in 0.9% Normal Saline (100mL MB+) 100 ML IV (23:45)
[2024-02-26] VITALS (41 sets, daily range): BP systolic 73–105; BP diastolic 54–84; PULSE 75–104; RESP 15–29; TEMP 36.6–36.9; O2SAT 91–100; BMI 22.5
[2024-02-26 00:24] LABS: Vitamin B12 1113 pg/mL (211-911)
[2024-02-26 01:21] LABS: Alcohol, Blood (Medical)-Serum < 3.0 mg/dL
[2024-02-26 01:40] LABS: Lactic Acid 2.8 mmol/L (0.4-1.9)
[2024-02-26 02:44] LABS: Osmolality, Urine 449 mOsm/KG
[2024-02-26 02:45] LABS: Osmolality, Serum 278 mOsm/KG (280-301)
[2024-02-26] MEDS: Albumin Human 25% (50 mL) 12.5 GM/50 ML IV.SOLN IV (03:18)
[2024-02-26] MEDS: Piperacil/Tazobactam 3.375 GM in 0.9% Normal Saline (50mL MB+) 50 ML IV ×3 (04:25→22:55)
[2024-02-26] MEDS: Norepinephrine 8 MG in 0.9% Normal Saline (250mL Bag) 242 ML 9.4 MG CONT INF (04:30)
[2024-02-26 04:52] LABS: Absolute Lymphocyte Count 1.37 X10^3/uL (0.83-4.51); Absolute Neutrophil Count 15.1 X10^3/uL (2.0-7.7); Basophil# 0.04 X10^3/uL; Basophil% 0.2 % (0-1); Eosinophil# 0.01 X10^3/uL; Eosinophils% 0.1 % (0-5); Hematocrit 29.4 % (40-54); Hemoglobin 10.2 g/dL (13.0-16.5); Lymphocyte # 1.37 X10^3/ul (0.83-4.51); Lymphocyte % 7.7 % (19-41); Mean Corp Hgb Conc 34.7 g/dL (32-36); Mean Corpuscular Hgb 29.7 pg (27.0-32.0); Mean Corpuscular Volume 85.5 fL (80-94); Mean Platelet Vol. 10.1 fl (6.2-12.0); Monocyte# 1.22 X10^3/uL; Monocyte% 6.8 % (0-10); NRBC Flagged by Analyzer 0 % (0-5); Neutrophil # 15.09 X10^3/uL (2.7-7.7); Neutrophil % 84.4 % (47-70); Platelet Count 149 K/mm3 (150-450); RBC Distribution Width CV 15.4 % (11.6-14.6); RBC Distribution Width SD 46.9 fl (35.1-43.9); Red Blood Count 3.44 M/mm3 (4.6-6.2); White Blood Count 17.9 K/mm3 (4.4-11.0)
[2024-02-26 05:01] LABS: Reflex Lactate? Y
[2024-02-26 05:18] LABS: BNP,B-Type NATRIURETIC PEPTIDE 2610.1 pg/mL (0-100)
[2024-02-26 05:21] LABS: Troponin-I HS 94 pg/mL (3.0-78.0)
[2024-02-26 05:58] LABS: Lactic Acid 1.3 mmol/L (0.4-1.9)
[2024-02-26 06:50] LABS: Anion Gap 10 (5-15); BUN 34 mg/dL (7-18); BUN/Creat Ratio 24.3 RATIO (10-20); Calcium,Total 10.1 mg/dL (8.5-10.1); Chloride 96 mmol/L (98-107); EST Glomerular Filtration Rate 53 mL/min (>60); Est Glom Filt Rate - Afr Amer 64 mL/min (>60); Estimated Creatinine Clearance 55.38 ml/min; Glucose 103 mg/dL (74-106); Potassium 4.3 mmol/L (3.5-5.1); Sodium Level 126 mmol/L (136-145)
[2024-02-26] MEDS: Lactobacillis Acidophilus 1 CAP PO ×3 (07:52→20:42)
[2024-02-26] MEDS: Ascorbic Acid 500 MG Tablet 1000 MG PO ×2 (07:52→17:37)
[2024-02-26] MEDS: Aspirin 81 MG TAB.CHEW PO (07:52)
[2024-02-26] MEDS: Loratadine 10 MG Tablet PO (07:53)
[2024-02-26] MEDS: APIXABAN 5 MG TABLET PO ×2 (07:53→20:42)
[2024-02-26] MEDS: Ezetimibe 10 MG Tablet PO (07:54)
[2024-02-26] MEDS: Pantoprazole Sodium 20 MG Tablet PO (07:54)
[2024-02-26] MEDS: Empagliflozin 25 MG Tablet PO (07:54)
[2024-02-26] MEDS: Cholecalciferol (VIT D3) 25 MCG TABLET (1,000 UNITS) 50 MCG PO (07:54)
[2024-02-26] MEDS: Zinc Sulfate 50 mg zinc (220 mg) ORAL capsule PO (07:54)
[2024-02-26] MEDS: 0.9% Saline Lock 10 ML Syringe IV (07:55)
[2024-02-26 09:31] LABS: Procalcitonin 6.42 ng/mL (0.00-0.09)
[2024-02-26] MEDS: Vancomycin IV 500 MG/100 ML BAG 100 MG IV ×2 (12:26→22:32)
[2024-02-26] MEDS: LORazepam 0.5 MG Tablet PO (20:42)
[2024-02-27] VITALS (32 sets, daily range): BP systolic 72–104; BP diastolic 54–87; PULSE 76–104; RESP 18–27; TEMP 36.2–37.1; O2SAT 95–100; BMI 22.8
[2024-02-27] MEDS: Piperacil/Tazobactam 3.375 GM in 0.9% Normal Saline (50mL MB+) 50 ML IV ×3 (05:33→20:41)
[2024-02-27 05:48] LABS: Absolute Lymphocyte Count 1.35 X10^3/uL (0.83-4.51); Absolute Neutrophil Count 9.7 X10^3/uL (2.0-7.7); Basophil# 0.07 X10^3/uL; Basophil% 0.6 % (0-1); Eosinophil# 0.14 X10^3/uL; Eosinophils% 1.1 % (0-5); Hematocrit 31.9 % (40-54); Hemoglobin 10.6 g/dL (13.0-16.5); Lymphocyte # 1.35 X10^3/ul (0.83-4.51); Lymphocyte % 10.6 % (19-41); Mean Corp Hgb Conc 33.2 g/dL (32-36); Mean Corpuscular Volume 87.2 fL (80-94); Mean Platelet Vol. 9.6 fl (6.2-12.0); Monocyte# 1.37 X10^3/uL; Monocyte% 10.8 % (0-10); NRBC Flagged by Analyzer 0 % (0-5); Neutrophil % 76.3 % (47-70); Platelet Count 158 K/mm3 (150-450); RBC Distribution Width CV 15.9 % (11.6-14.6); RBC Distribution Width SD 49.5 fl (35.1-43.9); Red Blood Count 3.66 M/mm3 (4.6-6.2); White Blood Count 12.7 K/mm3 (4.4-11.0)
[2024-02-27 06:17] LABS: ALB/GLOB Ratio 0.7 RATIO (0.9-2.4); AST(SGOT) 149 U/L (15-37); Alanine Aminotransfer ALT/SGPT 90 U/L (16-61); Albumin, Serum 2.5 g/dL (3.2-5.0); Alkaline Phosphatase 75 U/L (45-117); Anion Gap 7 (5-15); BUN 27 mg/dL (7-18); BUN/Creat Ratio 24.5 RATIO (10-20); Calcium,Total 9.3 mg/dL (8.5-10.1); Chloride 102 mmol/L (98-107); EST Glomerular Filtration Rate 70 mL/min (>60); Est Glom Filt Rate - Afr Amer 85 mL/min (>60); Estimated Creatinine Clearance 71.01 ml/min; Globulin 3.5 g/dL (2.2-4.2); Glucose 153 mg/dL (74-106); Potassium 4.1 mmol/L (3.5-5.1); Sodium Level 132 mmol/L (136-145)
[2024-02-27] MEDS: Norepinephrine 8 MG in 0.9% Normal Saline (250mL Bag) 242 ML 9.4 MG CONT INF (06:25)
[2024-02-27] MEDS: Aspirin 81 MG TAB.CHEW PO (08:36)
[2024-02-27] MEDS: Ascorbic Acid 500 MG Tablet 1000 MG PO ×2 (08:36→16:22)
[2024-02-27] MEDS: Ezetimibe 10 MG Tablet PO (10:08)
[2024-02-27] MEDS: Empagliflozin 25 MG Tablet PO (10:08)
[2024-02-27] MEDS: Pantoprazole Sodium 20 MG Tablet PO (10:08)
[2024-02-27] MEDS: Loratadine 10 MG Tablet PO (10:08)
[2024-02-27] MEDS: APIXABAN 5 MG TABLET PO ×2 (10:08→20:37)
[2024-02-27] MEDS: Lactobacillis Acidophilus 1 CAP PO ×4 (10:08→20:37)
[2024-02-27] MEDS: Cholecalciferol (VIT D3) 25 MCG TABLET (1,000 UNITS) 50 MCG PO (10:09)
[2024-02-27] MEDS: Zinc Sulfate 50 mg zinc (220 mg) ORAL capsule PO (10:09)
[2024-02-27 10:57] LABS: Vancomycin, Trough Level 6.6 ug/mL (5.0-15.0)
[2024-02-27] MEDS: Midodrine HCl 5 MG Tablet 10 MG PO ×2 (11:21→16:21)
[2024-02-27] MEDS: Vancomycin HCl 1,250 MG in 0.9% Normal Saline (250mL Bag) 250 ML 167 MG IV ×2 (11:21→22:30)
[2024-02-28] VITALS (12 sets, daily range): BP systolic 82–100; BP diastolic 54–69; PULSE 75–98; RESP 14–24; TEMP 36.6; O2SAT 96–100; BMI 22.9
[2024-02-28] MEDS: Piperacil/Tazobactam 3.375 GM in 0.9% Normal Saline (50mL MB+) 50 ML IV (06:03)
[2024-02-28 06:18] LABS: Absolute Lymphocyte Count 1.51 X10^3/uL (0.83-4.51); Absolute Neutrophil Count 7.5 X10^3/uL (2.0-7.7); Basophil# 0.09 X10^3/uL; Basophil% 0.8 % (0-1); Eosinophil# 0.39 X10^3/uL; Eosinophils% 3.6 % (0-5); Hematocrit 32.6 % (40-54); Hemoglobin 10.9 g/dL (13.0-16.5); Lymphocyte # 1.51 X10^3/ul (0.83-4.51); Lymphocyte % 14.1 % (19-41); Mean Corp Hgb Conc 33.4 g/dL (32-36); Mean Corpuscular Hgb 29.5 pg (27.0-32.0); Mean Corpuscular Volume 88.1 fL (80-94); Mean Platelet Vol. 9.4 fl (6.2-12.0); Monocyte# 1.08 X10^3/uL; Monocyte% 10.1 % (0-10); NRBC Flagged by Analyzer 0 % (0-5); Neutrophil # 7.52 X10^3/uL (2.7-7.7); Neutrophil % 70.4 % (47-70); Platelet Count 178 K/mm3 (150-450); RBC Distribution Width CV 16.3 % (11.6-14.6); White Blood Count 10.7 K/mm3 (4.4-11.0)
[2024-02-28 06:38] LABS: Anion Gap 6 (5-15); BUN 18 mg/dL (7-18); BUN/Creat Ratio 22.1 RATIO (10-20); Calcium,Total 9.2 mg/dL (8.5-10.1); Chloride 102 mmol/L (98-107); Creatinine, Serum 0.82 mg/dL (0.70-1.30); EST Glomerular Filtration Rate 99 mL/min (>60); Est Glom Filt Rate - Afr Amer 119 mL/min (>60); Estimated Creatinine Clearance 95.25 ml/min; Glucose 111 mg/dL (74-106); Potassium 4.2 mmol/L (3.5-5.1); Sodium Level 131 mmol/L (136-145)
[2024-02-28] MEDS: Lactobacillis Acidophilus 1 CAP PO ×2 (07:59→13:46)
[2024-02-28] MEDS: hydrOXYzine PAM 25 MG Capsule PO (07:59)
[2024-02-28] MEDS: Zinc Sulfate 50 mg zinc (220 mg) ORAL capsule PO ×2 (08:09→08:12)
[2024-02-28] MEDS: APIXABAN 5 MG TABLET PO (08:09)
[2024-02-28] MEDS: Cholecalciferol (VIT D3) 25 MCG TABLET (1,000 UNITS) 50 MCG PO (08:10)
[2024-02-28] MEDS: Ascorbic Acid 500 MG Tablet 1000 MG PO (08:10)
[2024-02-28] MEDS: Aspirin 81 MG TAB.CHEW PO (08:10)
[2024-02-28] MEDS: Loratadine 10 MG Tablet PO (08:11)
[2024-02-28] MEDS: Ezetimibe 10 MG Tablet PO (08:11)
[2024-02-28] MEDS: Midodrine HCl 5 MG Tablet 10 MG PO ×2 (08:11→13:45)
[2024-02-28] MEDS: Pantoprazole Sodium 20 MG Tablet PO (08:11)
[2024-02-28] MEDS: Empagliflozin 25 MG Tablet PO (08:14)
== END 2024-02-28 14:00 | disposition hospice, inpatient (51) | DRG 871 ==
LOC: ED 20:46 → ICU 02-26 01:41
PROVIDERS: Internal Medicine Critical Care Medicine; Admitting Provider Internal Medicine; Emergency Provider Emergency Medicine; PCP Internal Medicine; Referring Provider Emergency Medicine
DX: A41.9 Sepsis, unspecified organism (principal); R65.21 Severe sepsis with septic shock; R57.1 Hypovolemic shock; G93.41 Metabolic encephalopathy; I21.A1 Myocardial infarction type 2; J18.9 Pneumonia, unspecified organism; J44.0 Chronic obstructive pulmonary disease with (acute) lower respiratory infection; I50.22 Chronic systolic (congestive) heart failure; I48.20 Chronic atrial fibrillation, unspecified; L97.921 Non-pressure chronic ulcer of unspecified part of left lower leg limited to breakdown of skin; J90 Pleural effusion, not elsewhere classified; L97.911 Non-pressure chronic ulcer of unspecified part of right lower leg limited to breakdown of skin; E87.1 Hypo-osmolality and hyponatremia; E11.51 Type 2 diabetes mellitus with diabetic peripheral angiopathy without gangrene; F25.9 Schizoaffective disorder, unspecified; I11.0 Hypertensive heart disease with heart failure; E11.622 Type 2 diabetes mellitus with other skin ulcer; K21.9 Gastro-esophageal reflux disease without esophagitis; I25.10 Atherosclerotic heart disease of native coronary artery without angina pectoris; E78.5 Hyperlipidemia, unspecified; I25.2 Old myocardial infarction; I25.5 Ischemic cardiomyopathy; B95.2 Enterococcus as the cause of diseases classified elsewhere; B95.4 Other streptococcus as the cause of diseases classified elsewhere; B95.61 Methicillin susceptible Staphylococcus aureus infection as the cause of diseases classified elsewhere; B96.89 Other specified bacterial agents as the cause of diseases classified elsewhere; Z66 Do not resuscitate; Z95.1 Presence of aortocoronary bypass graft; Z95.5 Presence of coronary angioplasty implant and graft; Z95.810 Presence of automatic (implantable) cardiac defibrillator; Z79.01 Long term (current) use of anticoagulants; Z79.82 Long term (current) use of aspirin; Z79.84 Long term (current) use of oral hypoglycemic drugs; Z79.899 Other long term (current) drug therapy; Z85.72 Personal history of non-Hodgkin lymphomas; Z86.718 Personal history of other venous thrombosis and embolism; Z87.891 Personal history of nicotine dependence
CPT/HCPCS: 36569; 71045; 71250; 73502; 80048; 80053; 80202; 80307; 81001; 82077; 82140; 82607; 82746; 83605; 83880; 83930; 83935; 84145; 84443; 84484; 85025; 87040; 87070; 87077; 87086; 87186; 87205; 87449; 87633; 93005; 97116; 97163; 97166; 97530; 97535; 97802; 99285; J7040; J7050; P9047; P9612; A4216; J0696